=== PATIENT | male | born 1990 | race Caucasian/White ===

== ENCOUNTER 2016-07-19 10:30 | Outpatient (CLI) | payer OTHER | END 2016-07-19 10:31 | disposition home or self-care (01) | DX: M25.532 Pain in left wrist (principal) ==

== ENCOUNTER 2016-11-04 01:12 | Outpatient (CLI) | payer OTHER | END 2016-11-04 01:13 | disposition critical access hospital (66) | LOC: EMS 01:12 | PROVIDERS: ATTEND Surgery | DX: R51 Headache (principal) | CPT/HCPCS: A0425; A0429 ==

== ENCOUNTER 2016-11-04 01:37 | Emergency (ER) | payer OTHER ==
[2016-11-04 01:42] VITALS: BP 138/78
--- NOTE | 2016-11-04 02:23 | ED Physician Documentation ---
PD HPI HEADACHE - Stated complaint Stated Complaint: SOTO - Chief complaint Chief Complaint: Neuro - History obtained from History obtained from: Patient - History of Present Illness Timing - onset: Enter time (17:30) Timing - onset during: Rest Timing - details: Abrupt onset, Now resolved Worst headache ever?: Worst headache ever? Location: Left Quality: Throbbing Associated symptoms: Nausea. No: Fever, Stiff neck, Vomiting, Weakness, Numbness Improved by: Rest, Dark room Worsened by: Light Similar symptoms before: Has not had sx before Recently seen: Not recently seen - Additional information Additional information: c/o left retro-orbital headache with photophobia, nausea. Onset 5:30 PM today. Symptoms have completely resolved and he is asymptomatic at the time of my evaluation Review of Systems Constitutional: denies: Fever, Chills, Sweats Eyes: reports: Photophobia. denies: Loss of vision, Decreased vision Ears: denies: Ear pain Cardiac: reports: Reviewed and negative Respiratory: reports: Reviewed and negative GI: reports: Nausea. denies: Abdominal Pain, Vomiting Neurologic: reports: Headache. 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) - Past Surgical History Past Surgical History: No - Present Medications Home Medications: Ambulatory Orders Medication Instructions Recorded Confirmed No Known Home Medications [No 11/04/16 11/04/16 Known Home Medications] - Allergies Allergies/Adverse Reactions: Allergies Allergy/AdvReac Type Severity Reaction Status Date / Time No Known Drug Allergies Allergy Verified 11/04/16 01:42 - Social History Does the pt smoke?: Yes Smoking Status: Current every day smoker Does the pt drink ETOH?: Yes Does the pt have substance abuse?: Yes Substance Use and Type: Marijuana - Immunizations Immunizations are current?: Yes - POLST Patient has POLST: No PD ED PE NORMAL - Vitals Vital signs reviewed: Yes - General General: Alert and oriented X 3, No acute distress, Well developed/nourished - HEENT HEENT: PERRL, EOMI, Moist mucous membranes - Neck Neck: Supple, no meningeal sign - Cardiac Cardiac: RRR, No murmur - Respiratory Respiratory: No respiratory distress, Clear bilaterally - Neuro Neuro: Alert and oriented X 3, hand cloth examiner 2-12 intact, No motor deficit, No sensory deficit, Normal speech Results - Vitals Vitals: Vital Signs - 24 hr 11/04/16 01:38 Temperature 36.9 C Heart Rate 87 Respiratory 14 Rate Blood Pressure 138/78 H O2 Saturation 96 Oxygen O2 Source Room air PD MEDICAL DECISION MAKING - ED course Complexity details: considered differential, d/w patient ED course: Patient declined testing at this time, which is reasonable given that he is now asymptomatic. Departure - Departure Disposition: 01 Home, Self Care Clinical Impression: Headache Condition: Good Instructions: ED Cephalgia Unspecified Follow-Up: Julio Sunshine MD [Provider Admit Priv/Credential] - Discharge Date/Time: 11/04/16 02:57
== END 2016-11-04 02:57 | disposition home or self-care (01) ==
LOC: EDUNIT# → ED 01:37
DX: R51 Headache (principal); F17.200 Nicotine dependence, unspecified, uncomplicated
CPT/HCPCS: 99283

== ENCOUNTER 2017-08-15 11:39 | Outpatient (CLI) | payer OTHER ==
[2017-08-15 19:29] LABS: BASOPHILS # (AUTO) 0.1 10^3/uL (0.0-0.1); BASOPHILS % (AUTO) 0.6 %; EOSINOPHILS % (AUTO) 0.2 %; HGB - HEMOGLOBIN 14.2 g/dL (14.0-18.0); LYMPHOCYTES # (AUTO) 1.9 10^3/uL (1.5-3.5); LYMPHOCYTES % (AUTO) 21.3 %; MEAN CORPUSCULAR HEMOGLOBIN 31.7 pg (27.0-31.0); MEAN CORPUSCULAR HGB CONC 33.7 g/dL (32.0-36.0); MEAN CORPUSCULAR VOLUME 94.1 fL (80.0-94.0); MEAN PLATELET VOLUME 8.6 fL (7.4-11.4); MONOCYTES # (AUTO) 0.8 10^3/uL (0.0-1.0); MONOCYTES % (AUTO) 8.7 %; NEUTROPHILS # (AUTO) 6.1 10^3/uL (1.5-6.6); NEUTROPHILS % (AUTO) 69.2 %; PLT - PLATELET COUNT 224 10^3/uL (130-450); RED BLOOD COUNT 4.47 10^6/uL (4.70-6.10); WHITE BLOOD COUNT 8.8 x10^3/uL (4.8-10.8)
[2017-08-15 19:40] LABS: ALBUMIN 4.8 g/dL (3.2-5.5); ALBUMIN/GLOBULIN RATIO 1.7 (1.0-2.2); ALKALINE PHOSPHATASE 61 IU/L (42-121); ALT ALANINE AMINOTRANSFERASE 33 IU/L (10-60); AST ASPARTATE AMINOTRANSFERASE 35 IU/L (10-42); BUN - BLOOD UREA NITROGEN 15 mg/dL (6-20); CALCIUM 9.3 mg/dL (8.5-10.3); CARBON DIOXIDE - CO2 27 mmol/L (21-32); CHLORIDE 103 mmol/L (101-111); CHOL/HDL RATIO 3.2 (<5.0); CHOLESTEROL 207 mg/dL; CREATININE 0.8 mg/dL (0.6-1.2); GFR - MDRD 118 (>89); GLUCOSE 96 mg/dL (70-100); HDL CHOLESTEROL 64 mg/dL; LDL CHOLESTEROL,CALCULATED 129 mg/dL; SODIUM 138 mmol/L (135-145); TOTAL PROTEIN 7.6 g/dL (6.7-8.2); VLDL CHOLESTEROL 14 mg/dL
[2017-08-15 19:53] LABS: HB2 TOTAL 15.6 g/dL; HEMOGLOBIN A1C 0.49 g/dL
== END 2017-08-15 11:40 | disposition home or self-care (01) ==
LOC: LAB.WCP 11:39
PROVIDERS: ATTEND Family Medicine
DX: Z00.00 Encounter for general adult medical examination without abnormal findings (principal)
CPT/HCPCS: 36415; 80053; 80061; 83036; 83721; 84443; 85025

== ENCOUNTER 2017-09-06 09:09 | Outpatient (CLI) | payer OTHER ==
--- NOTE | 2017-09-06 16:42 | Ultrasound Report ---
EXAM: RENAL ULTRASOUND EXAM DATE: 09/06/2017 10:08 AM. CLINICAL HISTORY: HYPERTENSION. COMPARISON: None. TECHNIQUE: Real-time scanning was performed with static images obtained. FINDINGS: Right Kidney: 11.9 cm. Normal echotexture. No hydronephrosis. No contour deforming mass. No calculi. Left Kidney: 12.7 cm. Normal echotexture. No hydronephrosis. No contour deforming mass. No calculi. Bladder: Bilateral jets seen. The prevoid bladder volume was 265 cc. The postvoid bladder volume was 7 cc . IMPRESSION: 1. Unremarkable renal ultrasound. [facility] Referring Provider Line: [phone] SITE ID: [id number]
== END 2017-09-06 09:10 | disposition home or self-care (01) ==
LOC: DI 09:09
PROVIDERS: ATTEND Family Medicine
DX: I10 Essential (primary) hypertension (principal)
CPT/HCPCS: 76770

== ENCOUNTER 2017-09-07 12:34 | Outpatient (CLI) | payer OTHER | END 2017-09-07 12:35 | disposition home or self-care (01) | LOC: DI 12:34 | PROVIDERS: ATTEND Family Medicine | DX: I10 Essential (primary) hypertension (principal) | CPT/HCPCS: 93306 ==

== ENCOUNTER 2019-07-18 22:48 | Outpatient (CLI) | payer OTHER | END 2019-07-18 23:59 | disposition critical access hospital (66) | LOC: EMS 22:48 | PROVIDERS: ATTEND Surgery | DX: R06.9 Unspecified abnormalities of breathing (principal); R55 Syncope and collapse | CPT/HCPCS: A0425; A0427 ==

== ENCOUNTER 2019-07-18 23:16 | Emergency (ER) | payer OTHER ==
[2019-07-18] MEDS ORDERED: LORazepam 2 MG/ML VIAL IVP STA (23:32)
[2019-07-18 23:34] VITALS: BP 160/112
--- NOTE | 2019-07-18 23:53 | ED Physician Documentation ---
History of Present Illness - Stated complaint Stated Complaint: PANIC ATTACK, SYNCOPE - Chief complaint Chief Complaint: General - Additonal information Additional information: Patient is brought to the emergency department for panic attack and syncope after watching the news "all day". According to medics, the patient became upset after watching the news about coronavirus and had an altercation with his over the fact that she had not washed her hands before touching her child.Medics state that they Were called because the patient became extremely upset and began hyperventilating. He hyperventilated so much that he ended up losing consciousness. Medics state that they have witnessed the same phenomenon throughout their transport, noting that the patient will exhibit a respiratory rate of 40-50 while awake and then lapsed into unconsciousness for a short period of time, perhaps 10 seconds. The patient then awakens and begins to hyperventilate again. Medics state they given 4 mg of Versed in route to try to calm him down, but he is continued to exhibit the same behavior.The patient states that this is never happened to him before and that he does not want to be in the emergency department. He states he does not have any respiratory or cardiac history. He has not been sick with anything recently. He denies any abdominal pain, nausea, or vomiting. No recent fevers. No sore throat. No congestion. Patient states he feels anxious but was not previously short of breath. Patient has no history of DVT or PE. Review of Systems Ten Systems: 10 systems reviewed and negative Constitutional: reports: Reviewed and negative Eyes: reports: Reviewed and negative Ears: reports: Reviewed and negative Nose: reports: Reviewed and negative Throat: reports: Reviewed and negative Cardiac: reports: Reviewed and negative Respiratory: reports: Reviewed and negative GI: reports: Reviewed and negative : reports: Reviewed and negative Skin: reports: Reviewed and negative Musculoskeletal: reports: Reviewed and negative Neurologic: reports: Reviewed and negative Psychiatric: reports: Anxiety Endocrine: reports: Reviewed and negative Immunocompromised: reports: Reviewed and negative PD PAST MEDICAL HISTORY - Past Surgical History Past Surgical History: No - Present Medications Home Medications: Ambulatory Orders Medication Instructions Recorded Confirmed No Known Home Medications 11/04/16 11/04/16 - Allergies Allergies/Adverse Reactions: Allergies Allergy/AdvReac Type Severity Reaction Status Date / Time No Known Drug Allergies Allergy Verified 11/04/16 01:42 - Social History Does the pt smoke?: Yes Smoking Status: Current every day smoker Does the pt drink ETOH?: Yes Does the pt have substance abuse?: Yes - Immunizations Immunizations are current?: Yes - POLST Patient has POLST: No PD ED PE NORMAL - Vitals Vital signs reviewed: Yes - General General: Alert and oriented X 3, Well developed/nourished, Other (The patient is extremely anxious, but also hostile.) - HEENT HEENT: Atraumatic, PERRL, EOMI, Moist mucous membranes - Neck Neck: Supple, no meningeal sign - Cardiac Cardiac: RRR, No murmur - Respiratory Respiratory: Clear bilaterally, Other (Patient does not exhibit labored respirations, but does intermittently Appears to become extremely anxious, with respiratory rate around 50 breaths/min. He does lapsed into unconsciousness briefly, in which time he has a fairly long, 10-second lapse of respirations, then begins to Breathes at a normal rate before regaining consciousness 5 to 10 seconds later.) - Abdomen Abdomen: Soft, Non tender, Non distended - Derm Derm: Normal color, Warm and dry, No rash - Extremities Extremities: No deformity, Normal ROM s pain, No edema, No calf tenderness / cord - Neuro Neuro: intertype operator 2-12 intact, No motor deficit, No sensory deficit, Normal speech, Other (Patient initially does not appear entirely alert, but in somewhat of a daze, Staring straight ahead and slowly making eye contact when spoken to. He is able to give history when not in an episode of hyperventilation.) - Psych Psych: Other (Patient has frequent, intermittent episodes of extreme anxiety with extreme hyperventilation. He can be talked out of it to some degree, though once he begins to hyperventilate, he loses the ability to make eye contact and seemingly to comprehend instructions.The patient intermittently when not hyperventilating is hostile and angry, demanding a bottle of water and abrading staff who are not wearing gloves (though not touching the pt), despite reassurance that everybody, including provider, has disinfected hands, is appr opriately masked, and will wear gloves at the appropriate times.) Results - Vitals Vitals: Oxygen O2 Source Room air PD MEDICAL DECISION MAKING - ED course Complexity details: re-evaluated patient, considered differential, d/w patient ED course: The patient on arrival did appear to still be under the influence of Versed somewhat. He was very angry and extremely anxious, and I did try to explain to him that he needs to try to control his breathing. The patient was given water after the examination and did seem to calm down a bit after this. However, he became irate About being kept in the emergency department and demanded to leave. I did discuss with the patient that I am fine with discharging him once he has demonstrated that he is no longer hyperventilating and causing himself to have syncopal episodes. I have also discussed with him the hostility toward the staff will not accomplish anything, and that whether or not he wanted to come to the emergency department, he is here and it is our responsibility to sure that he is safe. I have discussed with him that we will have a much more productive interaction if he addresses staff with respect and a nonthreatening demeanor. The patient did calm at this point and was found to no longer have episodes of hyperventilation and syncope after some observation. He still wished to go home and I did feel he was stable for this. Mother arrived to drive him home. Departure - Departure Disposition: 01 Home, Self Care Clinical Impression: Panic attack as reaction to stress Condition: Stable Instructions: ED Panic Attack Discharge Date/Time: 07/19/19 00:00
== END 2019-07-19 | disposition home or self-care (01) ==
LOC: EDUNIT# → ED 23:16
DX: F43.0 Acute stress reaction (principal); F17.200 Nicotine dependence, unspecified, uncomplicated
CPT/HCPCS: 99283; 99284

== ENCOUNTER 2019-12-28 10:41 | Outpatient (CLI) | payer OTHER ==
--- NOTE | 2019-12-28 11:32 | XRAY Report ---
PROCEDURE: Ankle 3 View RT INDICATIONS: PAIN IN RIGHT ANKLE AND JOINGS OF RIGHT FOOT TECHNIQUE: 3 views of the ankle were acquired. COMPARISON: None FINDINGS: Bones: No fractures or dislocations. Ankle mortise is normally aligned. No suspicious bony lesions . Soft tissues: No tibiotalar joint effusion. Achilles tendon appears normal. IMPRESSION: No acute finding. Reviewed by: Donavon Peña MD on 12/28/2019 11:31 AM PDT Approved by: Donavon Peña MD on 12/28/2019 11:31 AM PDT Station ID: [id number]
--- NOTE | 2019-12-28 11:33 | XRAY Report ---
PROCEDURE: Foot 3 View RT INDICATIONS: PAIN IN RIGHT ANKLE AND JOINTS OF RIGHT FOOT TECHNIQUE: 3 views of the foot were acquired. COMPARISON: None FINDINGS: Bones: No fractures or dislocations. No suspicious bony lesions. Soft tissues: No tibiotalar joint effusion. Achilles tendon appears normal. IMPRESSION: No acute finding. Reviewed by: Doanvon Peña MD on 12/28/2019 11:31 AM PDT Approved by: Donavon Peña MD on 12/28/2019 11:31 AM PDT Station ID: [id number]
== END 2019-12-28 10:42 | disposition home or self-care (01) ==
LOC: DI.S 10:41
PROVIDERS: ATTEND Nurse Practitioner Family
DX: M25.571 Pain in right ankle and joints of right foot (principal)

== ENCOUNTER 2022-05-01 15:51 | Emergency (ER) | payer OTHER ==
[2022-05-01] MEDS ORDERED: SODIUM CHLORIDE 0.9% 1,000 ML IV STA (16:11)
[2022-05-01 16:17] LABS: BASOPHILS # (AUTO) 0.1 10^3/uL (0.0-0.1); BASOPHILS % (AUTO) 0.7 %; EOSINOPHILS % (AUTO) 0.3 %; HCT - HEMATOCRIT 40.4 % (42.0-52.0); HGB - HEMOGLOBIN 13.9 g/dL (14.0-18.0); LYMPHOCYTES # (AUTO) 3.1 10^3/uL (1.5-3.5); LYMPHOCYTES % (AUTO) 23.9 %; MEAN CORPUSCULAR HEMOGLOBIN 36.7 pg (27.0-31.0); MEAN CORPUSCULAR HGB CONC 34.4 g/dL (32.0-36.0); MEAN CORPUSCULAR VOLUME 106.6 fL (80.0-94.0); MEAN PLATELET VOLUME 10.3 fL (7.4-11.4); MONOCYTES % (AUTO) 7.6 %; NEUTROPHILS # (AUTO) 8.8 10^3/uL (1.5-6.6); NEUTROPHILS % (AUTO) 67.1 %; PLT - PLATELET COUNT 408 10^3/uL (130-450); RED BLOOD COUNT 3.79 10^6/uL (4.70-6.10); RED CELL DISTRIBUTION WIDTH 15.6 % (12.0-15.0); WHITE BLOOD COUNT 13.1 x10^3/uL (4.8-10.8)
[2022-05-01 16:22] VITALS: BP 128/87
[2022-05-01 16:34] LABS: ACETAMINOPHEN < 10 ug/mL (10-30); ALBUMIN 3.5 g/dL (3.2-5.5); ALBUMIN/GLOBULIN RATIO 0.9 (1.0-2.2); ALKALINE PHOSPHATASE 154 IU/L (42-121); ALT ALANINE AMINOTRANSFERASE 53 IU/L (10-60); AST ASPARTATE AMINOTRANSFERASE 93 IU/L (10-42); BILIRUBIN,TOTAL 1.2 mg/dL (0.2-1.0); BUN - BLOOD UREA NITROGEN < 5 mg/dL (6-20); CALCIUM 8.8 mg/dL (8.5-10.3); CARBON DIOXIDE - CO2 27 mmol/L (21-32); CHLORIDE 88 mmol/L (101-111); CREATININE 0.7 mg/dL (0.6-1.2); ETOH - ETHANOL 299.2 mg/dL; GFR - MDRD 132 (>89); GLUCOSE 138 mg/dL (70-100); SALICYLATE < 6.0 mg/dL; SODIUM 134 mmol/L (135-145); TOTAL PROTEIN 7.5 g/dL (6.7-8.2)
[2022-05-01 16:40] LABS: POTASSIUM 2.5 mmol/L (3.5-5.0)
--- NOTE | 2022-05-01 16:46 | ED Physician Documentation ---
History of Present Illness - Stated complaint Stated Complaint: ETOH - Chief complaint Chief Complaint: Trauma Hd/Nk - History obtained from History obtained from: Patient, EMS - Additonal information Additional information: Patient is a 31-year-old male presenting for evaluation after ground-level fall. He reports having a large amount of alcohol use today. Patient states that he has episodes of syncope. History is somewhat limited due to patient cooperation. EMS has reported several times where he has had LOC briefly for a few seconds. There has been no seizure activity.He did receive 4 mg of Zofran and 2 mg of Versed And currently is requiring physical restraints. On review of records he had a visit in 2019 with panic attack-like episodes where he would have episodes of hyperventilation followed by syncope and brief apnea. He was able to be talked out of these episodes And became calmer and more cooperative through that visit. Patient denies drug use. Review of Systems Constitutional: denies: Fever Cardiac: denies: Chest pain / pressure Respiratory: denies: Dyspnea GI: denies: Abdominal Pain Neurologic: denies: Headache PD PAST MEDICAL HISTORY - Past Surgical History Past Surgical History: No - Present Medications Home Medications: Ambulatory Orders Medication Instructions Recorded Confirmed Ondansetron Odt [Zofran] 4 mg TL Q6H PRN #10 tablet 05/01/22 Potassium Chloride [K-Dur] 40 meq PO ONCE 2 Days #4 tablet 05/01/22 - Allergies Allergies/Adverse Reactions: Allergies Allergy/AdvReac Type Severity Reaction Status Date / Time No Known Drug Allergies Allergy Verified 05/02/22 10:29 - Social History Does the pt smoke?: Yes Smoking Status: Current every day smoker Does the pt drink ETOH?: Yes Does the pt have substance abuse?: Yes - Immunizations Immunizations are current?: Yes - POLST Patient has POLST: No PD ED PE NORMAL - General General: Alert and oriented X 3, Well developed/nourished, Other (Initially uncooperative and fighting against restraints. Able to be redirected with a calm tone.; strong smell of etoh) - HEENT HEENT: Atraumatic, PERRL, EOMI, Moist mucous membranes, Pharynx benign - Neck Neck: Supple, no meningeal sign, No bony TTP - Cardiac Cardiac: No murmur, Other (Tachycardic, regular rhythm) - Respiratory Respiratory: No respiratory distress, Clear bilaterally - Abdomen Abdomen: Soft, Non tender - Derm Derm: Warm and dry - Extremities Extremities: No tenderness to palpate - Neuro Neuro: Alert and oriented X 3, No motor deficit, Normal speech Results - Vitals Vitals: Vital Signs - 24 hr 05/01/22 16:12 Temperature 36.3 C L Heart Rate 117 H Respiratory 18 Rate Blood Pressure 128/87 H O2 Saturation 100 Oxygen O2 Source Nasal cannula - EKG (time done) 1622 Rate: Rate (enter#) (106) Rhythm: Sinus tachycardia [place]: Normal Ischemia: No: ST elevation c/w ischemia - Labs Labs: Laboratory Tests 05/01/22 05/01/22 16:05 16:05 WBC 13.1 H RBC 3.79 L Hgb 13.9 L Hct 40.4 L MCV 106.6 H MCH 36.7 H MCHC 34.4 RDW 15.6 H Plt Count 408 MPV 10.3 Neut # (Auto) 8.8 H Lymph # (Auto) 3.1 [place] # (Auto) 1.0 Eos # (Auto) 0.0 Baso # (Auto) 0.1 Absolute Nucleated RBC 0.00 Nucleated RBC % 0.0 Sodium 134 L Potassium 2.5 L* Chloride 88 L Carbon Dioxide 27 Anion Gap 19.0 H BUN < 5 L Creatinine 0.7 Estimated GFR (MDRD) 132 Glucose 138 H Calcium 8.8 Total Bilirubin 1.2 H AST 93 H ALT 53 Alkaline Phosphatase 154 H Total Protein 7.5 Albumin 3.5 Globulin 4.0 Albumin/Globulin Ratio 0.9 L Salicylates < 6.0 Acetaminophen < 10 L Ethyl Alcohol 299.2 PD Medical Decision Making - ED course Complexity details: re-evaluated patient, d/w patient, d/w family (Mother at bedside) ED course: Pt presenting for evaluation of syncopal episode/head injury in setting of ETOH use. Pt is not at all cooperative upon arrival and required physical restraint by EMS/fire and versed en route. There were reports of a head injury so pt was placed into a c collar. We were able to de escalate patient without chemical sedation and he became less agitated/aggressive. Locked restraints were removed and patient was able to follow directions for CT head and C spine. No signs of intracranial bleed or c spine injury. Patient was able to follow directions and be cooperative to clear his c spine of concerns of ligamentous injury. Labs reviewed and significant for hypokalemia of 2.5 and elevated ETOH level. IV K ordered which patient did not tolerate. PO ordered which patient vomited. Upon arrival of pt's mother to ED, patient became very eager for discharge stating we could not hold him against his will if he had a sober ride. He stated multiple times that he wanted to leave and would not answer further questions regarding events of the day. He asked to smoke a cigarette and we explained why that is not allowed. I offered a nicotine patch. I explained my concerns to the patient and his mother regarding not monitoring him further given his syncope and his low potassium and would like to help him with his nausea so that he could tolerate another try at PO potassium. He initially agreed to this and was able to drink some water but while RN was getting meds, patient stood up and started removing leads and wanting his IV out. He speaks clearly and without slurring that he wants to leave and just does not like being in the hospital. I offered him medication to help with anxiety which he declined. He is able to ambulate steadily and states he is agreeable to receiving Rx for nausea medication and potassium. His mother states she is comfortable taking him home and they live in the same residence. Patient is not able to be convinced to stay in the ED any longer, he is speaking clearly and ambulating steadily and appears appropriate to make his own decisions and does not meet criteria for an involuntary hold. 1752 - Patient is not tolerating IV potassium so we will change to p.o. He may need prescription for more potassium. Departure - Departure Disposition: 01 Home, Self Care Clinical Impression: Alcohol intoxication, Hypokalemia, Syncope Condition: Stable Instructions: ED Alcohol Intoxication, ED Potassium Deficiency Prescriptions: Potassium Chloride [K-Dur] 40 meq PO ONCE 2 Days #4 tablet Ondansetron Odt [Zofran] 4 mg TL Q6H PRN #10 tablet PRN Reason: Nausea / Vomiting Comments: Your potassium level is low. You have opted not to receive potassium replacement here. I have sent a prescription to the [facility] in [place] for potassium pills as well as nausea medication. Please abstain from further alcohol use. Prescriptions were sent to [facility] in [place]. If you feel you need assistance with alcohol or substance abuse, [place]. [facility] [address] [place] [address] Main The [facility] offers a monitored and safe setting for individuals withdrawing from alcohol and drugs, and counseling for individuals experiencing a mental health crisis. All services are provided in a 10-bed facility where intensive medical monitoring is required along with stabilization services. The goal of these services is to assess a clients mental health and substance use disorder related needs, and assist them in accessing the services they need to recover. Discharge Date/Time: 05/01/22 19:14
--- NOTE | 2022-05-01 16:49 | ED Physician Documentation ---
Restraint [id number] - Immediate Situation Face to Face Evaluation Date: 05/01/22 Face to Face Evaluation Time: 16:00 Restraint Classification: Violent, physical Restraint Type: Locked extremity - Patient's Reaction & Behaviors Safety: Physically unsafe, Non-compliant Verbal: Screaming/Yelling Harm: Potential harm to self, Potential harm to others Physical: Aggressive behavior, Fighting restraints - Behavioral Condition Attitude: Indifferent Behavior: Agitated Orientation: Person Mood: Angry - Evaluation Review of Systems: See my note Pertinent History/Illicit Drugs/Medications/Results: Alcohol use - Plan Need to Continue or Terminate Violent or Chemical Restraint: We will remove restraints as soon as Possible when patient demonstrates that he is no longer a potential harm to himself or others
[2022-05-01] MEDS ORDERED: POTASSIUM CHLOR 10 MEQ/100 ML 10 MEQ/100 ML BAG IV SCH (17:00)
--- NOTE | 2022-05-01 17:24 | CT Report ---
PROCEDURE: CERVICAL SPINE WO INDICATIONS: fall/etoh TECHNIQUE: Noncontrast 3 mm thick sections acquired from the skull base to the T4 level. Sagittal and coronal r eformats were then constructed. For radiation dose reduction, the following was used: automated exp osure control, adjustment of mA and/or kV according to patient size. COMPARISON: None. FINDINGS: Image quality: Excellent. Bones: No fractures or dislocations. Visualized superior ribs are intact. Soft tissues: Prevertebral soft tissues are normal in thickness. No paravertebral hematomas. No ap ical pneumothoraces. IMPRESSION: No visualized fracture. Reviewed by: Luda Raymond MD on 05/01/2022 5:23 PM PST Approved by: Luda Raymond MD on 05/01/2022 5:23 PM PST Station ID: [id number]
--- NOTE | 2022-05-01 17:24 | CT Report ---
PROCEDURE: HEAD WO INDICATIONS: fall TECHNIQUE: Noncontrast 4.5 mm thick angled axial sections acquired from the foramen magnum to the vertex. For r adiation dose reduction, the following was used: automated exposure control, adjustment of mA and/or kV according to patient size. COMPARISON: None. FINDINGS: Image quality: Excellent. CSF spaces: Basal cisterns are patent. No extra-axial fluid collections. Ventricles are normal in size and shape. Brain: No midline shift. No intracranial masses or hemorrhage. [place]-white matter interface is norm al. Skull and face: Calvarium and visualized facial bones are intact, without suspicious lesions. Sinuses: Visualized sinuses and mastoids are clear. IMPRESSION: 1. No acute intracranial process. Reviewed by: Luda Raymond MD on 05/01/2022 5:22 PM [facility] Approved by: Luda Raymond MD on 05/01/2022 5:22 PM [facility] Station ID: [id number]
[2022-05-01] MEDS ORDERED: POTASSIUM CHLORIDE 20 MEQ TABLET PO STA (17:51)
[2022-05-01] MEDS ORDERED: ONDANSETRON 4 MG/2 ML VIAL IVP STA (18:01)
--- NOTE | 2022-05-01 18:04 | XRAY Report ---
PROCEDURE: Chest 1 View X-Ray INDICATIONS: syncope TECHNIQUE: One view of the chest was acquired. COMPARISON: None. FINDINGS: Surgical changes and devices: None. Lungs and pleura: No pleural effusions or pneumothorax. Lungs are clear. Mediastinum: Mediastinal contours appear normal. Heart size is normal. Bones and chest wall: No suspicious bony lesions. Overlying soft tissues appear unremarkable. IMPRESSION: No acute pulmonary process. Reviewed by: Luda Raymond MD on 05/01/2022 5:59 PM [facility] [[email or web address]] Approved by: Luda Raymond MD on 05/01/2022 5:59 PM [facility] [[email or web address]] Station ID: [id number]
[2022-05-01] MEDS ORDERED: METOCLOPRAMIDE 10 MG/2 ML VIAL IVP STA (18:37)
[2022-05-01] MEDS ORDERED: POTASSIUM CHLORIDE 20 MEQ/15 ML UDC PO STA (19:00)
== END 2022-05-01 19:14 | disposition home or self-care (01) ==
LOC: EDUNIT# → ED 15:51
DX: F10.129 Alcohol abuse with intoxication, unspecified (principal); E87.6 Hypokalemia; R55 Syncope and collapse; S09.90XA Unspecified injury of head, initial encounter; Z78.1 Physical restraint status; Z53.29 Procedure and treatment not carried out because of patient's decision for other reasons; F17.200 Nicotine dependence, unspecified, uncomplicated; X58.XXXA Exposure to other specified factors, initial encounter; F91.8 Other conduct disorders; F41.9 Anxiety disorder, unspecified
CPT/HCPCS: 36415; 70450; 71045; 72125; 80053; 80307; 80320; 80329; 85025; 93005; 96365; 96375; 99284; A9270; J2765

== ENCOUNTER 2022-05-02 10:18 | Emergency (ER) | payer OTHER ==
--- NOTE | 2022-05-02 10:47 | ED Physician Documentation ---
PD HPI CHEST PAIN - Stated complaint Stated Complaint: HANDS NUMB/CRAMPING/VOMITING - Chief complaint Chief Complaint: Cardiac - History obtained from History obtained from: Patient - History of Present Illness Timing - onset: Yesterday PD PAST MEDICAL HISTORY - Past Surgical History Past Surgical History: No - Present Medications Home Medications: Ambulatory Orders Medication Instructions Recorded Confirmed Ondansetron Odt [Zofran] 4 mg TL Q6H PRN #10 tablet 05/01/22 Potassium Chloride [K-Dur] 40 meq PO ONCE 2 Days #4 tablet 05/01/22 Famotidine [Pepcid] 20 mg PO DAILY #20 tablet 05/02/22 LORazepam [Ativan] 1 mg PO Q6H PRN #20 tablet 05/02/22 Magnesium Oxide 400 mg PO DAILY #20 tablet 05/02/22 Ondansetron Odt [Zofran] 4 mg TL Q6H PRN #10 tablet 05/02/22 Potassium Chloride 10 meq PO DAILY #20 tab 05/02/22 Promethazine [Phenergan] 25 mg PO Q6H PRN #15 tab 05/02/22 - Allergies Allergies/Adverse Reactions: Allergies Allergy/AdvReac Type Severity Reaction Status Date / Time No Known Drug Allergies Allergy Verified 05/02/22 10:29 - Social History Does the pt smoke?: Yes Smoking Status: Current every day smoker Does the pt drink ETOH?: Yes Does the pt have substance abuse?: Yes - Immunizations Immunizations are current?: Yes - POLST Patient has POLST: No Results - Vitals Vitals: Vital Signs - 24 hr 05/02/22 05/02/22 05/02/22 10:21 10:58 11:28 Temperature 36.5 C Heart Rate 146 H 128 H 126 H Respiratory 40 H 26 H 17 Rate Blood Pressure 137/75 H 150/126 H 172/89 H O2 Saturation 99 100 99 05/02/22 05/02/22 05/02/22 11:42 12:14 13:00 Temperature Heart Rate 123 H 130 H 131 H Respiratory 14 16 18 Rate Blood Pressure 165/97 H 158/85 H 149/88 H O2 Saturation 98 96 95 05/02/22 05/02/22 05/02/22 13:57 14:30 14:49 Temperature Heart Rate 127 H 119 H 116 H Respiratory 23 20 16 Rate Blood Pressure 133/79 H 138/84 H 146/85 H O2 Saturation 25 L 95 95 05/02/22 05/02/22 15:30 15:53 Temperature Heart Rate 121 H 128 H Respiratory 18 23 Rate Blood Pressure 139/81 H 139/87 H O2 Saturation 94 97 Oxygen O2 Source Room air - Labs Labs: Laboratory Tests 05/02/22 05/02/22 05/02/22 10:46 11:30 11:30 WBC 18.7 H RBC 3.79 L Hgb 13.7 L Hct 39.3 L MCV 103.7 H MCH 36.1 H MCHC 34.9 RDW 15.7 H Plt Count 381 MPV 10.7 Neut # (Auto) 14.9 H Lymph # (Auto) 2.0 [place] # (Auto) 1.4 H Eos # (Auto) 0.1 Baso # (Auto) 0.1 Absolute Nucleated RBC 0.00 Nucleated RBC % 0.0 PT INR APTT Sodium 133 L Potassium 2.0 L* Chloride 87 L Carbon Dioxide 21 Anion Gap 25.0 H BUN 9 Creatinine 1.0 Estimated GFR (MDRD) 88 L Glucose 177 H Calcium 8.2 L Magnesium 1.0 L* Total Bilirubin 2.4 H AST 88 H ALT 54 Alkaline Phosphatase 149 H Total Protein 7.3 Albumin 3.8 Globulin 3.5 Albumin/Globulin Ratio 1.1 Lipase 69 H Ethyl Alcohol < 5.0 05/02/22 05/02/22 13:25 15:12 WBC RBC Hgb Hct MCV MCH MCHC RDW Plt Count MPV Neut # (Auto) Lymph # (Auto) [place] # (Auto) Eos # (Auto) Baso # (Auto) Absolute Nucleated RBC Nucleated RBC % PT 14.1 H INR 1.3 H APTT 30.2 Sodium Potassium 2.6 L Chloride Carbon Dioxide Anion Gap BUN Creatinine Estimated GFR (MDRD) Glucose Calcium Magnesium 1.4 L Total Bilirubin AST ALT Alkaline Phosphatase Total Protein Albumin Globulin Albumin/Globulin Ratio Lipase Ethyl Alcohol PD Medical Decision Making - ED course Complexity details: considered differential (having carpal spasms with dyspnea and fast breathing, c/w hyperventilation. But had had low k yesterday, so likely a factor there. He has history of alcohol regularly and stopped 2-3 days ago. Some of his vomiting/anxious/abd cramps likely withdrawal. Can treat with IV fluids and meds for withdrawal), d/w patient Reviewed Lab Results: having higher bili/LFTs than recent ER visit. Can get cT abd to eval. (had had CT head and neck from fall and not eval of abd per se). Here with mother, who gives some corrections on the history (nudging patient to tell me about the degree of alcohol use and problems with it). ED course: He is given IV fluids and Potassium and Mag IV route and antiemetics and medications for pain/withsdrawal (iv dilaudid and ativan). Dit not have over- sedation but was appropriately calmed and not hyperventilating and spasms imrpoved. He did have mass in gallbladder and U/S recommended. U/S done and showed cyst without acute cholecystitis. Bile duct is normal size. Presume the elevated LFTs are related to alcohol use and vomiting, though could not exclude acute viral illness with hepatic inflammation. Patient is feeling better and prefers to discharge home, though he fits for OBS criteria at least. Offered OBS, but prefers home. I checked K/Mag after iV dosing to ensure reasonably increased even though not expecting it to be normal yet. Labs were improved with Mag up to 1.4 from 1.0, and K up to 2.6 from 2.0. He is discharged home with his mother. He states he will abstain from alcohol still and wants to be quitting. we discussed rx for gastritis, K/Mag replacement, and also meds for withdrawal and nausea. this includes Ativan. Departure - Departure Disposition: 01 Home, Self Care Clinical Impression: Elevated liver enzymes, Hypokalemia, Hypomagnesemia, Intractable vomiting, Alcohol withdrawal, Abdominal pain Condition: Stable Record reviewed to determine appropriate education?: Yes Follow-Up: Beto Olvera MD [Primary Care Provider] - Prescriptions: LORazepam [Ativan] 1 mg PO Q6H PRN #20 tablet PRN Reason: Alcohol Withdrawal Magnesium Oxide 400 mg PO DAILY #20 tablet Famotidine [Pepcid] 20 mg PO DAILY #20 tablet Promethazine [Phenergan] 25 mg PO Q6H PRN #15 tab PRN Reason: Nausea / Vomiting Potassium Chloride 10 meq PO DAILY #20 tab Ondansetron Odt [Zofran] 4 mg TL Q6H PRN #10 tablet PRN Reason: Nausea / Vomiting Comments: Its unclear whether your abdominal pain and vomiting relate to irritation of the stomach (gastritis) from the alcohol use or even potential viral "stomach flu". Some of your symptoms now do seem likely related to alcohol withdrawal with the fast heart rate and general abdominal pain, vomiting and some shakiness. The spasming of the hands and numbness of the hands and face are combination of your electrolyte abnormality with low potassium and magnesium as well as initially some hyperventilation (breathing too fast). This seems to be improved at this point. We did give you IV doses of potassium and magnesium and that showed some improvement in your electrolytes. However they are not normal yet and you will need to continue with supplements of the potassium and magnesium for the next couple of weeks. These are likely low related to the repetitive vomiting and so stopping the vomiting will help your hydration and electrolytes as well. For this you can take ondansetron orally dissolving tablet or promethazine tablet every 6 hours if needed for nausea and vomiting. Certainly your stomach will be irritated from all this and so famotidine acid reducing medicine daily for the next few weeks as well. Use Tylenol every 6-8 hours if needed for pains. You could use hydrocodone every 6 hours if needed for worse pain. Your CT scan did not show any obvious acute abnormality. There was what appeared to be a small cystic or stone structure in the gallbladder. However the ultrasound showed it to be just a small benign cyst without any signs of acute inflammation or infection. I sent prescriptions for these medications to the [facility] in [place]. I also prescribed lorazepam/Ativan to use every 6 hours if needed for alcohol withdrawal symptoms. Follow-up with your primary care in the next several days, call for an appointment. Return to the ER if worsening symptoms again.Try to eat well with small fluids and bland food and avoid alcohol of course. Discharge Date/Time: 05/02/22 16:05
[2022-05-02] MEDS ORDERED: KETOROLAC 15 MG/ML VIAL IVP STA (10:50)
[2022-05-02] MEDS ORDERED: DROPERIDOL 5 MG/2 ML VIAL IVP STA (10:50)
[2022-05-02] MEDS ORDERED: HYDROmorphone 0.5 MG/0.5 ML SYRINGE IVP STA (10:50)
[2022-05-02] MEDS ORDERED: SODIUM CHLORIDE 0.9% 1,000 ML IV STA (10:50)
[2022-05-02 10:56] LABS: BASOPHILS # (AUTO) 0.1 10^3/uL (0.0-0.1); BASOPHILS % (AUTO) 0.3 %; EOSINOPHILS # (AUTO) 0.1 10^3/uL (0.0-0.7); EOSINOPHILS % (AUTO) 0.6 %; HCT - HEMATOCRIT 39.3 % (42.0-52.0); HGB - HEMOGLOBIN 13.7 g/dL (14.0-18.0); LYMPHOCYTES % (AUTO) 10.9 %; MEAN CORPUSCULAR HEMOGLOBIN 36.1 pg (27.0-31.0); MEAN CORPUSCULAR HGB CONC 34.9 g/dL (32.0-36.0); MEAN CORPUSCULAR VOLUME 103.7 fL (80.0-94.0); MEAN PLATELET VOLUME 10.7 fL (7.4-11.4); MONOCYTES # (AUTO) 1.4 10^3/uL (0.0-1.0); MONOCYTES % (AUTO) 7.4 %; NEUTROPHILS # (AUTO) 14.9 10^3/uL (1.5-6.6); NEUTROPHILS % (AUTO) 79.8 %; PLT - PLATELET COUNT 381 10^3/uL (130-450); RED BLOOD COUNT 3.79 10^6/uL (4.70-6.10); RED CELL DISTRIBUTION WIDTH 15.7 % (12.0-15.0); WHITE BLOOD COUNT 18.7 x10^3/uL (4.8-10.8)
[2022-05-02 12:04] LABS: ALBUMIN 3.8 g/dL (3.2-5.5); ALBUMIN/GLOBULIN RATIO 1.1 (1.0-2.2); ALKALINE PHOSPHATASE 149 IU/L (42-121); BILIRUBIN,TOTAL 2.4 mg/dL (0.2-1.0); BUN - BLOOD UREA NITROGEN 9 mg/dL (6-20); CALCIUM 8.2 mg/dL (8.5-10.3); CARBON DIOXIDE - CO2 21 mmol/L (21-32); CHLORIDE 87 mmol/L (101-111); ETOH - ETHANOL < 5.0 mg/dL; GFR - MDRD 88 (>89); GLUCOSE 177 mg/dL (70-100); LIPASE 69 U/L (22-51); SODIUM 133 mmol/L (135-145); TOTAL PROTEIN 7.3 g/dL (6.7-8.2)
[2022-05-02] MEDS ORDERED: POTASSIUM CHLOR 10 MEQ/100 ML 10 MEQ/100 ML BAG IV ONE ×2 (12:16→13:54)
[2022-05-02] MEDS ORDERED: LACTATED RINGERS 1,000 ML IV STA (12:16)
[2022-05-02] MEDS ORDERED: LORazepam 2 MG/ML VIAL IVP STA (12:17)
[2022-05-02 12:25] LABS: ALT ALANINE AMINOTRANSFERASE 54 IU/L (10-60); AST ASPARTATE AMINOTRANSFERASE 88 IU/L (10-42)
[2022-05-02] MEDS ORDERED: iohexoL-300 100 ML VIAL ONE (12:50)
[2022-05-02] MEDS ORDERED: MAGNESIUM SULFATE 2 GRAM 2 GM/50 ML BAG IV ONE (13:16)
--- NOTE | 2022-05-02 13:28 | CT Report ---
PROCEDURE: ABDOMEN/PELVIS W INDICATIONS: abd pain and vomiting CONTRAST: 100ml Omnipaque 300 TECHNIQUE: After the administration of intravenous contrast, 5 mm thick sections acquired from the diaphragms to the symphysis. 5 mm thick coronal and sagittal reformats were acquired. For radiation dose reducti on, the following was used: automated exposure control, adjustment of mA and/or kV according to pino ent size. COMPARISON: None. FINDINGS: Image quality: Excellent. ABDOMEN: Lung bases: Lung bases are clear. Heart size is normal. Solid organs: Liver is enlarged, and demonstrates diffusely decreased density, without focal mass. G allbladder demonstrates a 10 mm diameter region of nondependent high density at its fundus. Biliary system is non dilated. Pancreas enhances normally. No adrenal nodules. Kidneys demonstrate normal size and enhancement, without hydronephrosis. Peritoneum and bowel: Bowel loops demonstrate normal wall thickness and caliber. Normal appendix. N o free fluid or air. Nodes and vessels: No retroperitoneal or mesenteric adenopathy by size criteria. Aorta and inferior vena cava are normal in size. Miscellaneous: No ventral hernias. PELVIS: Genitourinary: Bladder wall thickness is normal. Miscellaneous: No inguinal hernias or adenopathy. Bones: No suspicious bony lesions. No vertebral body compression fractures. IMPRESSION: 1. No acute process. 2. Hepatic steatosis. 3. High density focus within the gallbladder fundus, possibly indicating a polyp or adherent calculus . No evidence of associated cholecystitis. Further assessment with nonemergent outpatient follow-up u ltrasound examination is recommended. 4. Normal appendix. Reviewed by: Soniya Corey MD on 05/02/2022 1:27 PM PST Approved by: Soniya Corey MD on 05/02/2022 1:27 PM PST Station ID: [id number]
[2022-05-02 14:14] LABS: INR 1.3 (0.8-1.2); PT - PROTHROMBIN TIME 14.1 secs (9.9-12.6)
[2022-05-02 14:21] LABS: PARTIAL THROMBOPLASTIN TIME 30.2 secs (24.9-33.3)
[2022-05-02 15:25] LABS: MAGNESIUM 1.4 mg/dL (1.7-2.8); POTASSIUM 2.6 mmol/L (3.5-5.0)
--- NOTE | 2022-05-02 15:50 | Ultrasound Report ---
PROCEDURE: Abdomen Limited INDICATIONS: elevated LFTs. CT showing GB mass. TECHNIQUE: Real-time focused scanning was performed of the abdomen, with image documentation. COMPARISON: CT of abdomen and pelvis from the same day. FINDINGS: There is hepatomegaly. Coarsely increased liver parenchymal echotexture is seen. No discrete hepatic lesion. Gallbladder is distended. No gallstone is seen. No gallbladder wall thickening or pericholecystic flu id. Likely phrygian cap versus gallbladder wall cyst measures 1.9 x 0.5 x 1 cm in size is seen near f undus of gallbladder. No sonographic Mcduffie's sign. There is no intrahepatic biliary ductal dilatation., Bowel that measures up to 5.5 mm in diameter and is within normal limits. Pancreas is not well seen due to overlying bowel gas. Visualized portion of right kidney show no hydronephrosis. IMPRESSION: 1. 1.9 x 0.5 x 1 cm hypoechoic structure within fundus of gallbladder. Given CT finding of 1 cm hyper density in this area finding is suggestive of possible hyperdense cyst. Sonographic follow-up is zoe mmended. No internal vascularity is noted within this structure. No sonographic evidence of acute cho lecystitis. 2. Hepatomegaly and hepatic steatosis, no discrete hepatic lesion. 3. No biliary ductal dilatation. Reviewed by: Noel Viveros MD on 05/02/2022 3:48 PM PST Approved by: Noel Viveros MD on 05/02/2022 3:48 PM PST Station ID: [id number]
[2022-05-02 15:53] VITALS: BP 139/87
[2022-05-02] MEDS ORDERED: iohexoL-300 100 ML VIAL IVP ONE (16:20)
== END 2022-05-02 16:05 | disposition home or self-care (01) ==
LOC: ED 10:18
DX: F10.239 Alcohol dependence with withdrawal, unspecified (principal); R74.8 Abnormal levels of other serum enzymes; E87.6 Hypokalemia; E83.42 Hypomagnesemia; R10.9 Unspecified abdominal pain; R11.10 Vomiting, unspecified; F17.200 Nicotine dependence, unspecified, uncomplicated
CPT/HCPCS: 36415; 74177; 76705; 80053; 80320; 83690; 83735; 84132; 85025; 85610; 85730; 93005; 96361; 96365; 96366; 96367; 96375; 99284; 99285; J1170; J2060; J7120; Q9967

== ENCOUNTER 2022-05-12 16:55 | Outpatient (CLI) | payer OTHER | END 2022-05-12 16:56 | disposition critical access hospital (66) | LOC: EMS 16:55 | DX: R11.2 Nausea with vomiting, unspecified (principal); R12 Heartburn; Z72.89 Other problems related to lifestyle; F41.9 Anxiety disorder, unspecified; R55 Syncope and collapse | CPT/HCPCS: A0425; A0427 ==

== ENCOUNTER 2022-05-12 17:18 | Emergency (ER) | payer OTHER ==
[2022-05-12] MEDS ORDERED: ONDANSETRON 4 MG/2 ML VIAL IVP STA (17:25)
[2022-05-12] MEDS ORDERED: PROMETHAZINE INJ 12.5 MG in SODIUM CHLORIDE 0.9% 50 ML IV STA (17:25)
[2022-05-12] MEDS ORDERED: SODIUM CHLORIDE 0.9% 1,000 ML IV STA (17:26)
[2022-05-12 17:35] LABS: BASOPHILS % (AUTO) 0.4 %; EOSINOPHILS # (AUTO) 0.1 10^3/uL (0.0-0.7); EOSINOPHILS % (AUTO) 0.8 %; HCT - HEMATOCRIT 38.5 % (42.0-52.0); HGB - HEMOGLOBIN 13.6 g/dL (14.0-18.0); LYMPHOCYTES % (AUTO) 9.2 %; MEAN CORPUSCULAR HEMOGLOBIN 36.9 pg (27.0-31.0); MEAN CORPUSCULAR HGB CONC 35.3 g/dL (32.0-36.0); MEAN CORPUSCULAR VOLUME 104.3 fL (80.0-94.0); MEAN PLATELET VOLUME 9.4 fL (7.4-11.4); MONOCYTES # (AUTO) 0.7 10^3/uL (0.0-1.0); MONOCYTES % (AUTO) 6.2 %; PLT - PLATELET COUNT 241 10^3/uL (130-450); RED BLOOD COUNT 3.69 10^6/uL (4.70-6.10); RED CELL DISTRIBUTION WIDTH 17.4 % (12.0-15.0); WHITE BLOOD COUNT 10.9 x10^3/uL (4.8-10.8)
--- NOTE | 2022-05-12 17:37 | ED Physician Documentation ---
PD HPI ABD PAIN - Stated complaint Stated Complaint: ABD PX - Chief complaint Chief Complaint: Abd Pain - History obtained from History obtained from: Patient - Additional information Additional information: This is a 31-year-old male with a past medical history of alcoholism, Prior intractable nausea and vomiting secondary to alcohol use,. Elevated liver enzymes who presents with abdominal pain, nausea and vomiting. The patient states that he Drink heavily the last couple of days, mostly vodka. He woke up at 8 AM and served his son breakfast and then went back to bed. He woke up at 11 on the floor unaware of how he got there. He got himself back to bed and then woke up again this afternoon with persistent Nausea and vomiting. He vomited multiple times and continued to dry heave until his stomach was empty. He states that he did drink heavily for the last 2 days straight, last drinking late last night, drinking vodka. Unknown amount. He states he does drink every day and has done so for many years. He has had withdrawals in the past As well as other complications from his alcoholism.. He has generalized abdominal pain, mostly across the top of the abdomen though no focal abdominal pain. No diarrhea or constipation, no dysuria urgency or frequency, no fever or chills. He heads not had anything to eat for the last 3 or 4 days as he is been drinking alcohol only. He denies any chest pain or difficulty breathing. No headache, no neck pain, no extremity pain. He has not taken any of his regular medications including omeprazole. He states that his heart rate is always always elevated when he is in the hospital. He states that he does not want to stay in the hospital today Review of Systems Constitutional: reports: Reviewed and negative Eyes: reports: Reviewed and negative Ears: reports: Reviewed and negative Nose: reports: Reviewed and negative Throat: reports: Reviewed and negative Cardiac: reports: Reviewed and negative Respiratory: reports: Reviewed and negative GI: reports: Abdominal Pain, Nausea, Vomiting. denies: Abdominal Swelling, Constipation, Diarrhea, Hematemesis, Bloody / black stool : reports: Reviewed and negative Skin: reports: Reviewed and negative Musculoskeletal: reports: Reviewed and negative Neurologic: reports: Reviewed and negative Psychiatric: reports: Reviewed and negative Endocrine: reports: Reviewed and negative Immunocompromised: reports: Reviewed and negative PD PAST MEDICAL HISTORY - Past Medical History Past Medical History: Yes Cardiovascular: Other (Tachycardia) Other Past Medical History: alcoholism - Past Surgical History Past Surgical History: No - Present Medications Home Medications: Ambulatory Orders Medication Instructions Recorded Confirmed Famotidine [Pepcid] 20 mg PO DAILY #20 tablet 05/02/22 05/12/22 LORazepam [Ativan] 1 mg PO Q6H PRN #20 tablet 05/02/22 05/12/22 Magnesium Oxide 400 mg PO DAILY #20 tablet 05/02/22 05/12/22 Ondansetron Odt [Zofran] 4 mg TL Q6H PRN #10 tablet 05/02/22 05/12/22 Potassium Chloride 10 meq PO DAILY #20 tab 05/02/22 05/12/22 Promethazine [Phenergan] 25 mg PO Q6H PRN #15 tab 05/02/22 05/12/22 - Allergies Allergies/Adverse Reactions: Allergies Allergy/AdvReac Type Severity Reaction Status Date / Time No Known Drug Allergies Allergy Verified 05/12/22 17:27 - Social History Does the pt smoke?: Yes Smoking Status: Current every day smoker Does the pt drink ETOH?: Yes Does the pt have substance abuse?: Yes - Immunizations Immunizations are current?: Yes - POLST Patient has POLST: No PD ED PE NORMAL - Vitals Vital signs reviewed: Yes - General General: Alert and oriented X 3, Well developed/nourished, Other (is dry heaving) - HEENT HEENT: Atraumatic, Moist mucous membranes, Pharynx benign - Neck Neck: Supple, no meningeal sign, No JVD - Cardiac Cardiac: No murmur, No gallop, No rub, Strong equal pulses, Other (tachycardic) - Respiratory Respiratory: No respiratory distress, Clear bilaterally - Abdomen Abdomen: Normal bowel sounds, Soft, Non distended, Other (mild RUQ ttp, no mid epigastric tpp. no massess. ) - Derm Derm: Normal color, Warm and dry, No rash - Neuro Neuro: Alert and oriented X 3, No motor deficit, No sensory deficit, Normal speech Eye Opening: Spontaneous Motor: Obeys Commands Verbal: Oriented GCS Score: 15 - Psych Psych: Normal mood, Normal affect Results - Vitals Vitals: Vital Signs - 24 hr 05/12/22 05/12/22 05/12/22 17:28 18:11 20:00 Temperature 36.5 C 36.8 C Heart Rate 150 H 135 H 130 H Respiratory 26 H 16 17 Rate Blood Pressure 145/100 H 126/86 H 165/98 H O2 Saturation 99 92 95 Oxygen O2 Source Room air - EKG (time done) No standard instances Rate: Rate (enter#) (142) Rhythm: Sinus tachycardia [place]: Normal Intervals: Normal MT QRS: Normal Ischemia: Normal ST segments Compare to prior EKG: Unchanged from prior EKG Computer interpretation: Agree with computer - Labs Labs: Laboratory Tests 05/12/22 05/12/22 05/12/22 17:30 17:30 17:30 WBC 10.9 H RBC 3.69 L Hgb 13.6 L Hct 38.5 L MCV 104.3 H MCH 36.9 H MCHC 35.3 RDW 17.4 H Plt Count 241 MPV 9.4 Neut # (Auto) 9.0 H Lymph # (Auto) 1.0 L [place] # (Auto) 0.7 Eos # (Auto) 0.1 Baso # (Auto) 0.0 Absolute Nucleated RBC 0.00 Nucleated RBC % 0.0 Sodium 138 Potassium 3.0 L Chloride 96 L Carbon Dioxide 15 L Anion Gap 27.0 H BUN 5 L Creatinine 0.7 Estimated GFR (MDRD) 132 Glucose 141 H Calcium 8.6 Magnesium Total Bilirubin 1.7 H AST 158 H ALT 59 Alkaline Phosphatase 199 H Troponin I High Sens Total Protein 7.6 Albumin 3.5 Globulin 4.1 Albumin/Globulin Ratio 0.9 L Lipase 51 50 Urine Color Urine Clarity Urine pH Ur Specific [place] Urine Protein Urine Glucose (UA) Urine Ketones Urine Occult Blood Urine Nitrite Urine Bilirubin Urine Urobilinogen Ur Leukocyte Esterase Ur Microscopic Review Urine Culture Comments Urine Opiates Screen Ur Oxycodone Screen Urine Methadone Screen Ur Propoxyphene Screen Ur Barbiturates Screen Ur Tricyclics Screen Ur Phencyclidine Scrn Ur Amphetamine Screen U Methamphetamines Scrn U Benzodiazepines Scrn Urine Cocaine Screen U Cannabinoids Screen Ethyl Alcohol 99.1 05/12/22 05/12/22 05/12/22 19:40 19:53 19:53 WBC RBC Hgb Hct MCV MCH MCHC RDW Plt Count MPV Neut # (Auto) Lymph # (Auto) [place] # (Auto) Eos # (Auto) Baso # (Auto) Absolute Nucleated RBC Nucleated RBC % Sodium 136 Potassium 3.3 L Chloride 99 L Carbon Dioxide 16 L Anion Gap 21.0 H BUN 5 L Creatinine 0.8 Estimated GFR (MDRD) 114 Glucose 124 H Calcium 8.0 L Magnesium 2.0 Total Bilirubin AST ALT Alkaline Phosphatase Troponin I High Sens 6.2 Total Protein Albumin Globulin Albumin/Globulin Ratio Lipase Urine Color DARK YELLOW Urine Clarity CLEAR Urine pH 6.0 Ur Specific [place] >=1.030 H Urine Protein NEGATIVE Urine Glucose (UA) NEGATIVE Urine Ketones 15 H Urine Occult Blood NEGATIVE Urine Nitrite NEGATIVE Urine Bilirubin NEGATIVE Urine Urobilinogen 0.2 (NORMAL) Ur Leukocyte Esterase NEGATIVE Ur Microscopic Review NOT INDICATED Urine Culture Comments NOT INDICATED Urine Opiates Screen NEGATIVE Ur Oxycodone Screen NEGATIVE Urine Methadone Screen NEGATIVE Ur Propoxyphene Screen NEGATIVE Ur Barbiturates Screen NEGATIVE Ur Tricyclics Screen NEGATIVE Ur Phencyclidine Scrn NEGATIVE Ur Amphetamine Screen NEGATIVE U Methamphetamines Scrn NEGATIVE U Benzodiazepines Scrn NEGATIVE Urine Cocaine Screen NEGATIVE U Cannabinoids Screen NEGATIVE Ethyl Alcohol PD Medical Decision Making - ED course Complexity details: reviewed old records, reviewed results, re-evaluated patient, considered differential, d/w patient ED course: This is a 31-year-old male with a past medical history of alcoholism who presents with intractable nausea and vomiting and upper abdominal pain today after drinking heavily for the last couple of days and not taking any p.o. food. On arrival here, patient is tachycardic, he is retching, primarily dry heaving with occasional nonbloody emesis noted. His no reproducible abdominal pain on physical exam. We given IV fluids and obtain labs which show a white blood cell count of 10.9, stable CBC and CMP, his potassium is 3, mag is 2, and he has mild elevated LFTs with signs of alcoholic Ketoacidosis. He was given 1 L normal saline followed by a banana bag with magnesium and folic acid, as well as 10 mill equivalents of IV potassium and several antiemetics including 4 mg of Zofran, 12.5 of Phenergan and 1 mg of IV Ativan. He subsequently felt substantially better, and is tolerating p.o. juice and water. He also ate 1 cracker. Given additional liter of LR along with 20 mg minutes of p.o. potassium. His sx likely due to alcoholic gastritis, no signs of hematemesis, no pancreatitis per labs, and no focal abd pain to suggest surgical emergency. He had a recent CT scan which was reviewed as well, and was stable. HR remains elevated however patient is now well-appearing, tolerating p.o. not having any additional abdominal pain. I did offer him admission to the hospital for observation for additional IV hydration and monitoring his alcohol withdrawal symptoms however patient declines. He feels his back to baseline, states his heart rate is always elevated and he is having no symptoms in this regard. He will therefore be sent home, he has sober transport from his mom. He was advised to continue his antiemetics as needed, resume his home omeprazole and potassium replacement. He was strongly urged to stop drinking alcohol and counseled on the effects of his alcohol use including current Gastritis. I discussed with patient that this will get progressively worse if he continues to drink. He may need EGD in the future, advised to see PCP if ongoing sx and this can be done outpt. He was counseled on the fact that if he continues to consume alcohol, he We will continue to have alcohol related complications including, potentially, fatal complications. pt states understanding and repeatedly states he is aware and does plan to pursue sobriety so that he can be alive for his young son. Departure - Departure Disposition: Home, Self Care Clinical Impression: Hypokalemia, Intractable vomiting, Elevated liver enzymes Abdominal pain Qualifiers: Abdominal location: epigastric Qualified Code(s): R10.13 - Epigastric pain Alcohol intoxication Qualifiers: Complication of substance-induced condition: uncomplicated Qualified Code(s): F10.920 - Alcohol use, unspecified with intoxication, uncomplicated Alcoholic gastritis without bleeding Qualifiers: Chronicity: acute Qualified Code(s): K29.20 - Alcoholic gastritis without bleeding Condition: Good Instructions: ED Gastritis, ED Nausea Vomiting Comments: Please resume your daily omeprazole and the potassium replacement previously ordered. You can use nausea medication as needed. It is extremely important however that you stop drinking alcohol. Alcohol is causing these issues, likely resulting in gastritis or inflammation in the upper part of the stomach which leads to pain and nausea/vomiting. This will continue to happen as long as you continue to drink alcohol. You will likely need to go through a monitored program for alcohol withdrawal when you decide to stop as you may have significant withdrawal symptoms. Your potassium level was low here but we replaced it and it is starting to improve. You also showed signs of alcoholic ketosis do to not eating anything over the last several days and only drinking alcohol. This will improve as you start to eat some foods. Please start with very bland and easily digestible foods such as crackers, bread, bananas, applesauce. You can advance as tolerated. Please follow-up with your regular doctor for your chronic liver disease secondary to alcohol use and try to consider stopping alcohol altogether.
[2022-05-12 17:48] LABS: ALBUMIN 3.5 g/dL (3.2-5.5); ALBUMIN/GLOBULIN RATIO 0.9 (1.0-2.2); BILIRUBIN,TOTAL 1.7 mg/dL (0.2-1.0); CALCIUM 8.6 mg/dL (8.5-10.3); CREATININE 0.7 mg/dL (0.6-1.2); ETOH - ETHANOL 99.1 mg/dL; TOTAL PROTEIN 7.6 g/dL (6.7-8.2)
[2022-05-12] MEDS ORDERED: PROMETHAZINE 25 MG/1 ML VIAL ONE (17:54)
[2022-05-12] MEDS ORDERED: THIAMINE INJ 100 MG, MAGNESIUM SULFATE 2 GM, MULTIVITAMIN 10 ML, FOLIC ACID INJ 1 MG in... IV ONE ×10 (18:08→18:52)
[2022-05-12] MEDS ORDERED: POTASSIUM CHLOR 10 MEQ/100 ML 10 MEQ/100 ML BAG IV STA (18:09)
[2022-05-12] MEDS ORDERED: MULTIVITAMIN IV 10 ML VIAL ONE (18:36)
[2022-05-12] MEDS ORDERED: FOLIC ACID 5 MG/1 ML 10ML MDV ONE (18:36)
[2022-05-12] MEDS ORDERED: THIAMINE 100 MG/1 ML 2 ML MDV ONE (18:36)
[2022-05-12] MEDS ORDERED: MAGNESIUM SULFATE 1 GM/2 ML VIAL ONE (18:36)
[2022-05-12] MEDS ORDERED: LORazepam 2 MG/ML VIAL IVP STA (18:42)
[2022-05-12] MEDS ORDERED: FAMOTIDINE 20 MG/2 ML VIAL IVP STA (18:47)
[2022-05-12] MEDS ORDERED: MAG HYDROX/AL HYDROX/SIMETH 30 ML UDC PO STA (19:41)
[2022-05-12 19:44] LABS: MUDS CUTOFF CONCENTRATIONS CUTOFF CONC BELOW:
[2022-05-12 19:46] LABS: BILIRUBIN,URINE NEGATIVE (NEGATIVE); GLUCOSE, URINE (UA) NEGATIVE (NEGATIVE); KETONES,URINE (UA) 15 mg/dL (NEGATIVE); LEUKOCYTE ESTERASE, URINE NEGATIVE (NEGATIVE); NITRITE,URINE NEGATIVE (NEGATIVE); OCCULT BLOOD,URINE NEGATIVE (NEGATIVE); PROTEIN,URINE NEGATIVE (NEGATIVE); UROBILINOGEN,URINE 0.2 (NORMAL) E.U./dL (NORMAL)
[2022-05-12 19:47] LABS: CLARITY,URINE CLEAR (CLEAR)
[2022-05-12 19:56] LABS: AMPHETAMINE SCREEN,URINE NEGATIVE (NEGATIVE); BARBITURATE SCREEN,UR NEGATIVE (NEGATIVE); BENZODIAZEPINES SCREEN, URINE NEGATIVE (NEGATIVE); COCAINE SCREEN URINE NEGATIVE (NEGATIVE); METHADONE SCREEN, URINE NEGATIVE (NEGATIVE); METHAMPHETAMINES SCREEN, URINE NEGATIVE (NEGATIVE); OPIATE SCREEN, URINE NEGATIVE (NEGATIVE); OXYCODONE SCREEN, URINE NEGATIVE (NEGATIVE); PROPOXYPHENE SCREEN, URINE NEGATIVE (NEGATIVE); THC CANNABINOID SCREEN, URINE NEGATIVE (NEGATIVE); TRICYCLIC ANTIDEPRESSANT,URINE NEGATIVE (NEGATIVE)
[2022-05-12 20:21] LABS: CREATININE 0.8 mg/dL (0.6-1.2); POTASSIUM 3.3 mmol/L (3.5-5.0)
[2022-05-12] MEDS ORDERED: LACTATED RINGERS 1,000 ML IV STA (20:23)
[2022-05-12] MEDS ORDERED: POTASSIUM CHLORIDE 20 MEQ TABLET PO STA (20:48)
[2022-05-12] MEDS ORDERED: DROPERIDOL 5 MG/2 ML VIAL IVP STA (21:33)
[2022-05-12] MEDS ORDERED: PHENobarbital 65 MG/ML VIAL IM STA (21:33)
[2022-05-12 21:45] VITALS: BP 156/104
[2022-05-12] MEDS ORDERED: DROPERIDOL 5 MG/2 ML VIAL IM STA (21:45)
== END 2022-05-12 21:45 | disposition home or self-care (01) ==
LOC: EDUNIT# → ED 17:18
DX: K29.20 Alcoholic gastritis without bleeding (principal); R11.2 Nausea with vomiting, unspecified; R10.13 Epigastric pain; R94.5 Abnormal results of liver function studies; E87.6 Hypokalemia; F10.129 Alcohol abuse with intoxication, unspecified; Y90.4 Blood alcohol level of 80-99 mg/100 ml; F17.200 Nicotine dependence, unspecified, uncomplicated
CPT/HCPCS: 36415; 80048; 80053; 80306; 80320; 81003; 83690; 83735; 84484; 85025; 93005; 96361; 96365; 96366; 96367; 96368; 96372; 96375; 99285; A9270; J2060; J3411; J7040; J7120; 81001; 87086

== ENCOUNTER 2022-07-01 08:00 | Outpatient (CLI) | payer MEDICAID, OTHER ==
[2022-07-01 19:53] LABS: BASOPHILS % (AUTO) 0.5 %; EOSINOPHILS % (AUTO) 0.8 %; HCT - HEMATOCRIT 33.6 % (42.0-52.0); HGB - HEMOGLOBIN 11.2 g/dL (14.0-18.0); LYMPHOCYTES % (AUTO) 11.9 %; MEAN CORPUSCULAR HEMOGLOBIN 38.2 pg (27.0-31.0); MEAN CORPUSCULAR HGB CONC 33.3 g/dL (32.0-36.0); MEAN CORPUSCULAR VOLUME 114.7 fL (80.0-94.0); MEAN PLATELET VOLUME 11.1 fL (7.4-11.4); NEUTROPHILS % (AUTO) 78.1 %; PLT - PLATELET COUNT 375 10^3/uL (130-450); RED BLOOD COUNT 2.93 10^6/uL (4.70-6.10); RED CELL DISTRIBUTION WIDTH 25.8 % (12.0-15.0); WHITE BLOOD COUNT 22.9 x10^3/uL (4.8-10.8)
[2022-07-01 19:56] LABS: GLUCOSE, URINE (UA) NEGATIVE (NEGATIVE); KETONES,URINE (UA) NEGATIVE (NEGATIVE); LEUKOCYTE ESTERASE, URINE NEGATIVE (NEGATIVE); NITRITE,URINE NEGATIVE (NEGATIVE); OCCULT BLOOD,URINE NEGATIVE (NEGATIVE); PROTEIN,URINE NEGATIVE (NEGATIVE); UROBILINOGEN,URINE 1 (NORMAL) E.U./dL (NORMAL)
[2022-07-01 20:02] LABS: ABNORMAL LYMPHS % (MANUAL) 0 %
[2022-07-01 20:05] LABS: BACTERIA,URINE Rare /HPF (None Seen); BILIRUBIN,URINE LARGE (NEGATIVE); CLARITY,URINE CLEAR (CLEAR); ICTOTEST,URINE POSITIVE; INR 1.4 (0.8-1.2); PT - PROTHROMBIN TIME 15.2 secs (9.9-12.6); RBC,URINE 0-5 /HPF (0-5); SQUAMOUS EPITHELIAL CELL,UR RARE Squamous (<= Few); WBC,URINE 0-3 /HPF (0-3)
[2022-07-01 20:11] LABS: ALBUMIN 2.5 g/dL (3.2-5.5); ALBUMIN/GLOBULIN RATIO 0.6 (1.0-2.2); BILIRUBIN,TOTAL 9.4 mg/dL (0.2-1.0); CREATININE 0.5 mg/dL (0.6-1.2); TOTAL PROTEIN 6.4 g/dL (6.7-8.2)
[2022-07-01 20:20] LABS: THYROID STIMULATING HORMONE 3.53 uIU/mL (0.34-5.60)
[2022-07-01 20:29] LABS: CALCIUM 6.1 mg/dL (8.5-10.3); POTASSIUM 2.3 mmol/L (3.5-5.0)
[2022-07-01 20:48] LABS: BAND NEUTROPHILS % (MANUAL) 5 %; EOSINOPHILS # (MANUAL) 0.2 10^3/uL (0-0.7); LYMPHOCYTES # (MANUAL) 1.6 10^3/uL (1.5-3.5); LYMPHOCYTES % (MANUAL) 7 %; MONOCYTES # (MANUAL) 3.2 10^3/uL (0.0-1.0); NEUTROPHILS # (MANUAL) 17.9 10^3/uL (1.5-6.6)
[2022-07-01 20:51] LABS: DIFFERENTIAL COMMENT MANUAL DIFFERENTIAL; PLATELET ESTIMATE, MANUAL NORMAL (130-450,000) (NORMAL); PLATELET MORPHOLOGY NORMAL APPEARANCE (NORMAL); WBC MORPHOLOGY (MULTIPLE) NORMAL APPEARANCE (NORMAL)
== END 2022-07-01 23:59 | disposition home or self-care (01) ==
LOC: LAB.S 08:00
PROVIDERS: ATTEND Emergency Medicine
DX: R17 Unspecified jaundice (principal); M54.59 Other low back pain
CPT/HCPCS: 36415; 80053; 81001; 83690; 84443; 85025; 85610; 87086

== ENCOUNTER 2022-07-01 21:24 | Inpatient (IN) | payer MEDICAID, OTHER ==
[2022-07-01 22:09] LABS: BASOPHILS % (AUTO) 0.5 %; EOSINOPHILS % (AUTO) 0.9 %; HCT - HEMATOCRIT 31.3 % (42.0-52.0); HGB - HEMOGLOBIN 10.9 g/dL (14.0-18.0); LYMPHOCYTES % (AUTO) 10.7 %; MEAN CORPUSCULAR HEMOGLOBIN 38.1 pg (27.0-31.0); MEAN CORPUSCULAR HGB CONC 34.8 g/dL (32.0-36.0); MEAN CORPUSCULAR VOLUME 109.4 fL (80.0-94.0); MEAN PLATELET VOLUME 10.4 fL (7.4-11.4); NEUTROPHILS % (AUTO) 80.2 %; PLT - PLATELET COUNT 361 10^3/uL (130-450); RED BLOOD COUNT 2.86 10^6/uL (4.70-6.10); RED CELL DISTRIBUTION WIDTH 24.3 % (12.0-15.0)
[2022-07-01 22:11] LABS: ABNORMAL LYMPHS % (MANUAL) 0 %
[2022-07-01 22:17] LABS: BAND NEUTROPHILS % (MANUAL) 7 %; EOSINOPHILS # (MANUAL) 0.2 10^3/uL (0-0.7); LYMPHOCYTES # (MANUAL) 2.6 10^3/uL (1.5-3.5); LYMPHOCYTES % (MANUAL) 11 %; MONOCYTES # (MANUAL) 2.9 10^3/uL (0.0-1.0); NEUTROPHILS # (MANUAL) 18.2 10^3/uL (1.5-6.6)
[2022-07-01 22:19] LABS: DIFFERENTIAL COMMENT MANUAL DIFFERENTIAL; PLATELET ESTIMATE, MANUAL NORMAL (130-450,000) (NORMAL); PLATELET MORPHOLOGY NORMAL APPEARANCE (NORMAL); WBC MORPHOLOGY (MULTIPLE) NORMAL APPEARANCE (NORMAL)
[2022-07-01 22:32] LABS: ALBUMIN 2.4 g/dL (3.2-5.5); ALBUMIN/GLOBULIN RATIO 0.6 (1.0-2.2); ALKALINE PHOSPHATASE 141 IU/L (42-121); ALT ALANINE AMINOTRANSFERASE 54 IU/L (10-60); AST ASPARTATE AMINOTRANSFERASE 134 IU/L (10-42); BILIRUBIN,TOTAL 9.3 mg/dL (0.2-1.0); BUN - BLOOD UREA NITROGEN 6 mg/dL (6-20); CARBON DIOXIDE - CO2 31 mmol/L (21-32); CHLORIDE 90 mmol/L (101-111); CREATININE 0.5 mg/dL (0.6-1.2); ETOH - ETHANOL < 5.0 mg/dL; GFR - MDRD 195 (>89); GLUCOSE 139 mg/dL (70-100); MAGNESIUM 1.6 mg/dL (1.7-2.8); PHOSPHORUS 3.8 mg/dL (2.5-4.6); SODIUM 134 mmol/L (135-145); TOTAL PROTEIN 6.5 g/dL (6.7-8.2)
[2022-07-01 22:33] LABS: POTASSIUM 2.3 mmol/L (3.5-5.0)
[2022-07-01] MEDS ORDERED: POTASSIUM CHLOR 10 MEQ/100 ML 10 MEQ/100 ML BAG IV STA (23:07)
[2022-07-01] MEDS ORDERED: MAGNESIUM SULFATE 2 GRAM 2 GM/50 ML BAG IV ONE (23:10)
[2022-07-01] MEDS ORDERED: THIAMINE INJ 100 MG, MAGNESIUM SULFATE 2 GM, MULTIVITAMIN 10 ML, FOLIC ACID INJ 1 MG in... IV ONE ×5 (23:10)
[2022-07-01] MEDS ORDERED: SODIUM CHLORIDE 0.9% 1,000 ML IV STA (23:27)
[2022-07-01] MEDS ORDERED: FOLIC ACID 5 MG/1 ML 10ML MDV ONE (23:41)
[2022-07-01] MEDS ORDERED: THIAMINE 100 MG/1 ML 2 ML MDV ONE (23:41)
[2022-07-01] MEDS ORDERED: MAGNESIUM SULFATE 1 GM/2 ML VIAL ONE (23:41)
[2022-07-01] MEDS ORDERED: MULTIVITAMIN IV 10 ML VIAL ONE (23:41)
[2022-07-01 23:50] LABS: VBG PH 7.547 (7.31-7.41)
[2022-07-01 23:51] LABS: CALCIUM, IONIZED 0.72 mmol/L (1.15-1.33)
[2022-07-02] MEDS ORDERED: MULTIVITAMIN IV 10 ML VIAL ONE (00:07)
[2022-07-02] MEDS ORDERED: CALCIUM CARBONATE CHEW 500 MG TABLET PO STA (00:49)
[2022-07-02 01:06] LABS: MUDS CUTOFF CONCENTRATIONS CUTOFF CONC BELOW:
[2022-07-02 01:07] LABS: GLUCOSE, URINE (UA) NEGATIVE (NEGATIVE); KETONES,URINE (UA) TRACE mg/dL (NEGATIVE); LEUKOCYTE ESTERASE, URINE TRACE (NEGATIVE); NITRITE,URINE POSITIVE (NEGATIVE); OCCULT BLOOD,URINE NEGATIVE (NEGATIVE); PH,URINE 6.5 PH (5.0-7.5); PROTEIN,URINE 30 mg/dL (NEGATIVE); UROBILINOGEN,URINE 4 E.U./dL (NORMAL)
[2022-07-02 01:12] LABS: BILIRUBIN,URINE LARGE (NEGATIVE); CLARITY,URINE CLEAR (CLEAR); ICTOTEST,URINE POSITIVE
[2022-07-02 01:28] LABS: BACTERIA,URINE Rare /HPF (None Seen); MUCUS,URINE Few Strands; RBC,URINE 0-5 /HPF (0-5); SQUAMOUS EPITHELIAL CELL,UR RARE Squamous (<= Few)
[2022-07-02 01:30] LABS: AMPHETAMINE SCREEN,URINE NEGATIVE (NEGATIVE); BARBITURATE SCREEN,UR NEGATIVE (NEGATIVE); BENZODIAZEPINES SCREEN, URINE NEGATIVE (NEGATIVE); COCAINE SCREEN URINE NEGATIVE (NEGATIVE); METHADONE SCREEN, URINE NEGATIVE (NEGATIVE); METHAMPHETAMINES SCREEN, URINE NEGATIVE (NEGATIVE); OPIATE SCREEN, URINE NEGATIVE (NEGATIVE); OXYCODONE SCREEN, URINE NEGATIVE (NEGATIVE); PROPOXYPHENE SCREEN, URINE NEGATIVE (NEGATIVE); THC CANNABINOID SCREEN, URINE NEGATIVE (NEGATIVE); TRICYCLIC ANTIDEPRESSANT,URINE NEGATIVE (NEGATIVE)
--- NOTE | 2022-07-02 01:35 | ED Physician Documentation ---
History of Present Illness - Stated complaint Stated Complaint: DR WINKLER FOR LAB - Chief complaint Chief Complaint: General - History obtained from History obtained from: Patient - Additonal information Additional information: 31-year-old man with past medical history of alcohol abuse, quit cold turkey 12 days ago with subsequent nbnb vomiting and diarrhea, presents with Brown urine for the past several days as well as yellow skin. Patient was sent from walk-in clinic because of abnormal lab work. Review of Systems Constitutional: reports: Fatigue. denies: Fever GI: reports: Nausea, Vomiting, Diarrhea. denies: Abdominal Pain : reports: Other (brown urine). denies: Dysuria, Frequency Musculoskeletal: denies: Back pain PD PAST MEDICAL HISTORY - Past Medical History Cardiovascular: Other (Tachycardia) Respiratory: None Neuro: None Endocrine/Autoimmune: None GI: GERD : None HEENT: None Psych: Depression Musculoskeletal: None Derm: None - Past Surgical History Past Surgical History: No - Present Medications Home Medications: Ambulatory Orders Medication Instructions Recorded Confirmed Potassium Chloride 10 meq PO DAILY #20 tab 05/02/22 07/01/22 Omeprazole 20 mg PO DAILY 07/01/22 07/01/22 - Allergies Allergies/Adverse Reactions: Allergies Allergy/AdvReac Type Severity Reaction Status Date / Time No Known Drug Allergies Allergy Verified 07/01/22 21:32 - Social History Does the pt smoke?: Yes Smoking Status: Current every day smoker Does the pt drink ETOH?: Yes Does the pt have substance abuse?: Yes - Immunizations Immunizations are current?: Yes - POLST Patient has POLST: No PD ED PE NORMAL - Vitals Vital signs reviewed: Yes - General General: Alert and oriented X 3, No acute distress, Well developed/nourished - HEENT HEENT: Atraumatic, PERRL, EOMI - Neck Neck: Supple, no meningeal sign - Cardiac Cardiac: RRR - Respiratory Respiratory: No respiratory distress, Clear bilaterally - Abdomen Abdomen: Non tender, Non distended - Back Back: No CVA TTP - Derm Derm: Normal color, Warm and dry, Other (jaundiced appearing) - Neuro Neuro: Alert and oriented X 3, No motor deficit, No sensory deficit Results - Vitals Vitals: Vital Signs - 24 hr 07/01/22 07/01/22 07/01/22 21:33 22:07 23:00 Temperature 36.4 C L Heart Rate 121 H 123 H 118 H Respiratory 16 17 20 Rate Blood Pressure 121/77 108/71 125/85 H O2 Saturation 94 93 94 If not protocol : Oxygen Flow, liters/minute 07/01/22 07/02/22 07/02/22 23:30 00:00 00:30 Temperature Heart Rate 112 H 111 H 109 H Respiratory 20 20 19 Rate Blood Pressure 129/84 H 129/85 H O2 Saturation 96 96 If not protocol : Oxygen Flow, liters/minute 07/02/22 07/02/22 01:00 01:30 Temperature Heart Rate 112 H 108 H Respiratory 21 20 Rate Blood Pressure 113/77 126/73 O2 Saturation 91 L 96 If not protocol 2 : Oxygen Flow, liters/minute Oxygen O2 Source Nasal cannula Oxygen Flow Rate 2 - Labs Labs: Laboratory Tests 07/01/22 07/01/22 07/01/22 22:00 22:00 22:00 WBC 24.0 H RBC 2.86 L Hgb 10.9 L Hct 31.3 L MCV 109.4 H MCH 38.1 H MCHC 34.8 RDW 24.3 H Plt Count 361 MPV 10.4 Neut # (Auto) Not Reportable Lymph # (Auto) Not Reportable Gem # (Auto) Not Reportable Eos # (Auto) Not Reportable Baso # (Auto) Not Reportable Absolute Nucleated RBC Not Reportable Total Counted 100 Band Neuts % (Manual) 7 Abnorm Lymph % (Manual) 0 Nucleated RBC % Not Reportable Neutrophils # (Manual) 18.2 H Lymphocytes # (Manual) 2.6 Monocytes # (Manual) 2.9 H Eosinophils # (Manual) 0.2 Basophils # (Manual) 0.0 Differential Comment MANUAL DIFFERENTIAL WBC Morphology NORMAL APPEARANCE Platelet Estimate NORMAL (130-450,000) Platelet Morphology NORMAL APPEARANCE RBC Morph Micro Appear 1+ STOMATOCYTES VBG pH Ionized Calcium Sodium 134 L Potassium 2.3 L* Chloride 90 L Carbon Dioxide 31 Anion Gap 13.0 BUN 6 Creatinine 0.5 L Estimated GFR (MDRD) 195 Glucose 139 H Calcium 6.0 L* Phosphorus 3.8 Magnesium 1.6 L Total Bilirubin 9.3 H AST 134 H ALT 54 Alkaline Phosphatase 141 H Total Creatine Kinase 95 Total Protein 6.5 L Albumin 2.4 L Globulin 4.1 Albumin/Globulin Ratio 0.6 L Urine Color Urine Clarity Urine pH Ur Specific [place] Urine Protein Urine Glucose (UA) Urine Ketones Urine Occult Blood Urine Nitrite Urine Bilirubin Urine Urobilinogen Ur Leukocyte Esterase Urine RBC Urine WBC Ur Squamous Epith Cells Urine Bacteria Urine Mucus Ur Microscopic Review Urine Culture Comments Urine Opiates Screen Ur Oxycodone Screen Urine Methadone Screen Ur Propoxyphene Screen Ur Barbiturates Screen Ur Tricyclics Screen Ur Phencyclidine Scrn Ur Amphetamine Screen U Methamphetamines Scrn U Benzodiazepines Scrn Urine Cocaine Screen U Cannabinoids Screen Ethyl Alcohol < 5.0 07/01/22 07/02/22 23:44 00:48 WBC RBC Hgb Hct MCV MCH MCHC RDW Plt Count MPV Neut # (Auto) Lymph # (Auto) Gem # (Auto) Eos # (Auto) Baso # (Auto) Absolute Nucleated RBC Total Counted Band Neuts % (Manual) Abnorm Lymph % (Manual) Nucleated RBC % Neutrophils # (Manual) Lymphocytes # (Manual) Monocytes # (Manual) Eosinophils # (Manual) Basophils # (Manual) Differential Comment WBC Morphology Platelet Estimate Platelet Morphology RBC Morph Micro Appear VBG pH 7.547 H Ionized Calcium 0.72 L* Sodium Potassium Chloride Carbon Dioxide Anion Gap BUN Creatinine Estimated GFR (MDRD) Glucose Calcium Phosphorus Magnesium Total Bilirubin AST ALT Alkaline Phosphatase Total Creatine Kinase Total Protein Albumin Globulin Albumin/Globulin Ratio Urine Color DARK YELLOW Urine Clarity CLEAR Urine pH 6.5 Ur Specific [place] 1.020 Urine Protein 30 H Urine Glucose (UA) NEGATIVE Urine Ketones TRACE Urine Occult Blood NEGATIVE Urine Nitrite POSITIVE H Urine Bilirubin LARGE H Urine Urobilinogen 4 H Ur Leukocyte Esterase TRACE H Urine RBC 0-5 Urine WBC 4-5 Ur Squamous Epith Cells RARE Squamous Urine Bacteria Rare Urine Mucus Few Strands Ur Microscopic Review INDICATED Urine Culture Comments INDICATED Urine Opiates Screen NEGATIVE Ur Oxycodone Screen NEGATIVE Urine Methadone Screen NEGATIVE Ur Propoxyphene Screen NEGATIVE Ur Barbiturates Screen NEGATIVE Ur Tricyclics Screen NEGATIVE Ur Phencyclidine Scrn NEGATIVE Ur Amphetamine Screen NEGATIVE U Methamphetamines Scrn NEGATIVE U Benzodiazepines Scrn NEGATIVE Urine Cocaine Screen NEGATIVE U Cannabinoids Screen NEGATIVE Ethyl Alcohol PD Medical Decision Making - ED course ED course: 31-year-old man with history of alcohol abuse in remission presents with severe malnourishment with albumin 2.4, electrolyte derangements with potassium 2.3, calcium 6, magnesium 1.6, as well as anemia of 10.9 (13.62 months ago). Patient denies feeling feverish but does state that since quitting drinking alcohol he has been having vomiting and diarrhea with white blood cell count of 24. His LFTs are elevated with T. bili of 9.3 and AST ALT of 134/141. We do not have ultrasound overnight but he may benefit from eval tomorrow. CT ordered in the meantime. Urinalysis shows UTI which I treated with IV Rocephin. Blood culture sent. Discussed for admission with Dr. Saldana, [facility]. Departure - Departure Disposition: 66 [facility] DC/Xfer Clinical Impression: Hypokalemia, Hypocalcemia, Malnourished, Leukocytosis, Anemia, Hyperbilirubinemia, UTI (urinary tract infection) Condition: Serious
[2022-07-02] MEDS ORDERED: iohexoL-300 100 ML VIAL ONE (01:37)
--- NOTE | 2022-07-02 01:49 | HISTORY & PHYSICAL EXAMINATION ---
Chief Complaint - Chief Complaint Chief Complaint: Abnormal Labs History of Present Illness - Admitted From Admitted From:: ER - History Obtained From Records Reviewed: Yes History obtained from: Pt, ER Exam Limitations: H&P was conducted via video remotely, using Access Cart. - History of Present Illness HPI Comment/Other: 31 yo M with h/o ETOH abuse, GERD/Gastritis presented to the ER for c/o abnormal labs. Pt quit ETOH 12 days ago, cold turkey. He went through withdrawals at home, including Nausea/vomiting x 3 days, intermittent loose stools x 10 days, tea-colored urine, yellow skin x 1 week. No sick contacts. No travel. No unusual foods. Pt went to W/I clinic d/t symptoms, had labs done, then was called yesterday by clinic physician b/c of abnormal lab results and told to go to the ER. Pt's nausea has resolved. He still has loose stools about 3x/day: light brown stool. No abdo pain, no dysuria, no F/C, no CP/SOB, cough. In the ER, HR 121, WBC 24, Hgb 10.9, MCV 109.4, Na 134, K 2.3, Glc 139, Ca 6.0, Mg 1.6, Bili 9.3, AST 134, ETOH level <5, U/A: +Nitrite, +LE, +WBC, UDS neg. CT Abdo: done; results pending. Pt was given O2, IVF, Thiamine, Folate, MVI, MagSO4, KCl, Rocephin/Flagyl in the ER. History - Past Medical History Cardiovascular: reports: Other (Tachycardia) Respiratory: reports: None Neuro: reports: None Endocrine/Autoimmune: reports: None GI: reports: GERD : reports: None HEENT: reports: None Psych: reports: Depression Musculoskeletal: reports: None Derm: reports: None MRSA Hx?: No - POLST Patient has POLST: No Meds/Allgy - Home Medications Home Medications: Ambulatory Orders Medication Instructions Recorded Confirmed Potassium Chloride 10 meq PO DAILY #20 tab 05/02/22 07/01/22 Omeprazole 20 mg PO DAILY 07/01/22 07/01/22 - Allergies Allergies/Adverse Reactions: Allergies Allergy/AdvReac Type Severity Reaction Status Date / Time No Known Drug Allergies Allergy Verified 07/01/22 21:32 Review of Systems - All Other Systems All Other Systems: reports: Reviewed and negative Exam - Vital Signs Reviewed Vital Signs: Yes Vital Signs: Vital Signs x48h Temp Pulse Resp BP Pulse Ox O2 Flow Rate 07/02/22 01:30 108 H 20 126/73 96 2 07/02/22 01:00 112 H 21 113/77 91 L 07/02/22 00:30 109 H 19 07/02/22 00:00 111 H 20 129/85 H 96 07/01/22 23:30 112 H 20 129/84 H 96 07/01/22 23:00 118 H 20 125/85 H 94 07/01/22 22:07 123 H 17 108/71 93 07/01/22 21:33 36.4 C L 121 H 16 121/77 94 - Physical Exam General Appearance: positive: No acute distress, Other (Exam done by Access cart, but stethoscope not working) Eyes Bilateral: positive: PERRL Respiratory: positive: Other (per ER Provider: CTA B/L) Cardiovascular: positive: Other (per ER Provider: RRR, no murmurs) Abdomen: positive: Other (per ER Provider: non-distended, NT, Soft) Neurologic/Psychiatric: positive: Oriented x3, CN's nml (2-12) Conclusion/Plan - Problem List (1) Hyperbilirubinemia Conclusion/Plan: Elevated Bilirubin Painless Jaundice Elevated AST -Bili 9.3, AST 134 -CT Abdo: done; results pending. -Pt was given Rocephin/Flagyl in the ER. -will hold A/Bs and keep pt on clear liquid diet until results of CT abdo known -consider abdo U/S and GI consult, depending on CT abdo result Loose stools -check stool studies, CDiff -clear liquid diet UTI Leukocytosis Tachycardia -HR 121, WBC 24, U/A: +Nitrite, +LE, +WBC -UC pending -Pt was given IVF, Rocephin in the ER. -continue Rocephin Anemia, macrocytic -Hgb 10.9, MCV 109.4 -check B12/Folate levels Hyponatremia Hypokalemia Hypocalcemia Low Magnesium -Na 134, K 2.3, Ca 6.0, Mg 1.6 -most likely d/t N/V/D -Pt was given IVF, MVI, MagSO4, KCl in the ER. -continue to supplement PRN Hyperglycemia -Glc 139 -check Hgba1c H/o ETOH abuse -Pt quit ETOH 12 days ago; plans to stay off ETOH -ETOH<5, UDS neg. H/o GERD/Gastritis -continue home medications: PPI H/o Depression -supportive care -consider counseling or Psych consult VTE Prophylaxis: Lovenox Code Status: Full Code ~Jeanie Saldana MD Hospitalist - Lab Results Fish Bones: 07/01/22 22:00 07/02/22 02:24
[2022-07-02] MEDS ORDERED: cefTRIAXone 1 GM VIAL IVP STA (01:57)
[2022-07-02] MEDS ORDERED: iohexoL-300 100 ML VIAL IVP ONE (02:24)
[2022-07-02] MEDS ORDERED: metroNIDAZOLE 500 MG/100 ML 500 MG/100 ML BAG IV ONE (02:36)
[2022-07-02] MEDS ORDERED: SODIUM CHLORIDE FLUSH 0.9% 10 ML SYRINGE IVP PRN (02:56)
[2022-07-02] MEDS ORDERED: ONDANSETRON ODT 4 MG TABLET TL PRN (02:56)
[2022-07-02] MEDS ORDERED: ONDANSETRON 4 MG/2 ML VIAL IVP PRN (02:56)
[2022-07-02] MEDS ORDERED: ACETAMINOPHEN 325 MG TABLET PO PRN (02:56)
[2022-07-02] MEDS ORDERED: POTASSIUM CHLORIDE INJ 40 MEQ in SODIUM CHLORIDE 0.9% 500 ML IV ONE (03:52)
[2022-07-02] MEDS: SODIUM CHLORIDE 0.9% 1,000 ML IV SCH ×3 (04:00→22:40)
[2022-07-02] MEDS: POTASSIUM CHLOR 10 MEQ/100 ML 10 MEQ/100 ML BAG IV SCH ×12 (06:04→23:08)
[2022-07-02] MEDS ORDERED: CALCIUM CARBONATE CHEW 500 MG TABLET PO PRN (06:18)
--- NOTE | 2022-07-02 08:02 | CT Report ---
PROCEDURE: ABDOMEN/PELVIS W INDICATIONS: elevated LFTs, n/v/d CONTRAST: Omni 300 100ml TECHNIQUE: After the administration of oral and intravenous contrast, 5 mm thick sections acquired from the diap hragms to the symphysis. 5 mm thick coronal and sagittal reformats were acquired. For radiation dos e reduction, the following was used: automated exposure control, adjustment of mA and/or kV accordin g to patient size. COMPARISON: None. FINDINGS: Image quality: Excellent. ABDOMEN: Lung bases: Lung bases are clear. Heart size is normal. Liver: Marked hepatic steatosis. Gallbladder: Contracted. Spleen: Unremarkable. Kidneys: Unremarkable. Adrenals: Unremarkable. Pancreas: Homogeneous enhancement. No ductal dilatation. No adjacent fat stranding. Peritoneum and bowel: Bowel loops demonstrate normal wall thickness and caliber. Moderate volume snow e fluid. Nodes and vessels: No retroperitoneal or mesenteric adenopathy by size criteria. Aorta and inferior vena cava are normal in size. Miscellaneous: No ventral hernias. PELVIS: Genitourinary: Bladder wall thickness is normal. Miscellaneous: Fat within the right inguinal canal. Bones: No suspicious bony lesions. No vertebral body compression fractures. IMPRESSION: 1.Homogeneous enhancement of the pancreas, without adjacent fat stranding. No CT evidence of acute pa ncreatitis at this time. 2.Small volume free fluid in the pelvis, presumably pathologic. 3.Clinically significant hepatic steatosis. Reviewed by: Walt Ruvalcaba on 07/02/2022 8:00 AM PDT Approved by: Walt Ruvalcaba on 07/02/2022 8:00 AM PDT Station ID: [id number]
[2022-07-02] MEDS: PANTOPRAZOLE 40 MG TABLET PO SCH (08:07)
[2022-07-02] MEDS: SODIUM CHLORIDE FLUSH 0.9% 10 ML SYRINGE IVP SCH ×2 (08:07→17:19)
[2022-07-02] MEDS: ENOXAPARIN 40 MG/0.4 ML SYRINGE SUBQ SCH (08:07)
[2022-07-02] MEDS: POTASSIUM CHLORIDE 10 MEQ CAPSULE PO SCH (08:07)
[2022-07-02 08:27] LABS: BASOPHILS # (AUTO) 0.1 10^3/uL (0.0-0.1); BASOPHILS % (AUTO) 0.5 %; EOSINOPHILS # (AUTO) 0.1 10^3/uL (0.0-0.7); EOSINOPHILS % (AUTO) 0.5 %; HGB - HEMOGLOBIN 9.7 g/dL (14.0-18.0); LYMPHOCYTES # (AUTO) 1.9 10^3/uL (1.5-3.5); LYMPHOCYTES % (AUTO) 9.7 %; MEAN CORPUSCULAR HEMOGLOBIN 38.5 pg (27.0-31.0); MEAN CORPUSCULAR HGB CONC 34.6 g/dL (32.0-36.0); MEAN CORPUSCULAR VOLUME 111.1 fL (80.0-94.0); MEAN PLATELET VOLUME 10.4 fL (7.4-11.4); MONOCYTES # (AUTO) 1.6 10^3/uL (0.0-1.0); NEUTROPHILS # (AUTO) 16.2 10^3/uL (1.5-6.6); NEUTROPHILS % (AUTO) 80.8 %; PLT - PLATELET COUNT 300 10^3/uL (130-450); RED BLOOD COUNT 2.52 10^6/uL (4.70-6.10); RED CELL DISTRIBUTION WIDTH 23.9 % (12.0-15.0); WHITE BLOOD COUNT 20.1 x10^3/uL (4.8-10.8)
[2022-07-02 08:33] LABS: SLIDE REVIEW? Indicated
[2022-07-02 08:47] LABS: ALBUMIN 2.2 g/dL (3.2-5.5); ALBUMIN/GLOBULIN RATIO 0.6 (1.0-2.2); BILIRUBIN,TOTAL 7.9 mg/dL (0.2-1.0); CREATININE 0.4 mg/dL (0.6-1.2); MAGNESIUM 2.2 mg/dL (1.7-2.8); TOTAL PROTEIN 5.7 g/dL (6.7-8.2)
[2022-07-02 08:53] LABS: CALCIUM 5.5 mg/dL (8.5-10.3); POTASSIUM 2.4 mmol/L (3.5-5.0)
[2022-07-02] MEDS: THIAMINE 100 MG TABLET PO SCH (09:18)
[2022-07-02 10:17] LABS: ESTIMATED AVERAGE GLUCOSE 68 mg/dL (70-100)
[2022-07-02] MEDS ORDERED: CALCIUM GLUC 1,000MG/50ML-NACL 1,000 MG/50 ML BAG IV ONE (12:00)
[2022-07-02] MEDS: PRENATAL VITAMIN TABLET PO SCH (12:06)
--- NOTE | 2022-07-02 13:01 | PHARMACY PROGRESS NOTE ---
- Best Possible Medication History Admit Date and Time: 07/02/22 0256 Processed by: Pharmacy Medication History completed: Yes Patient Interview: Completed (Pt only uses otc meds now) As the person ultimately responsible for medication therapy, providers are able to order a medication from an existing home medication list in [facility] via the "Reconcile Routine" prior to Confirmation of that medication by aircraft life support fitter. Such practice is discouraged except when the physician, in their clinical judgment, deems that a medical need exists for a medication without regard to previous use.
[2022-07-02 13:58] LABS: POTASSIUM 2.6 mmol/L (3.5-5.0)
[2022-07-02 14:02] LABS: CALCIUM 5.7 mg/dL (8.5-10.3)
--- NOTE | 2022-07-02 17:38 | PROVIDER PROGRESS NOTE ---
Assessment/Plan - Problem List (1) V-tach Assessment/Plan: Patient presented with atrial tachycardia, rate 110. It was felt to be due to dehydration. Today at approximately 1300, the patient went into SVT at a rate of 170 with a portion of it being wide-complex monomorphic tachycardia consistent with V. t ach. He was asymptomatic, and BP was stable. Stat calcium, magnesium, potassium and troponin were done and were normal EKG was done that showed no ischemic changes This SVT and non-sustained VT are very likely due to his severe potassium depletion and low calcium and low magnesium Plan: Will check his TFTs Remain on telemetry Awaiting Echo report. If finding on Echo is a depressed LVEF (as with possible alcoholic cardiomyopathy), then we will transfer pt to the ICU and start antiarrhythmic with amiodarone (CRITICAL CARE TIME SPENT: 45 MIN) (2) Hypokalemia Assessment/Plan: Serum K has been 3- 3.2 despite replacement, likely due to poor nutrition plus losses in nausea and vomiting Plan: We will continue to give IV K riders and follow his serum sodium every 8-12 hours When the diet is advanced we will also add oral potassium if he can tolerate it 3) Hypocalcemia Adm Ca was 6.0, but he hjas a low Alb of 2.2 Likely his low Ca and Alb are due to poor nutrition plus possibly from losses in nausea and vomiting Plan: We will replace with IV Ca and follow his serum Ca daily When the diet is advanced we will also add oral Ca if he can tolerate it 4) Hypomagnesemia Adm Mg was 1.6 Likely due to poor nutrition plus losses in nausea and vomiting Plan: We will continue to give IV Mg riders and follow his serum sodium every 12-24 hrs When the diet is advanced we will also add oral Mag if he can tolerate it 5) Elevated LFTs Elevated Bilirubin, with painless jaundice. He also has elevated AST 2 times higher than his ALT. CT abdomen was done and this shows a very large liver, gallbladder is contracted and has no stones Plan: No need for abdominal ultrasound given the findings on the CT with an unremarkable pancreas and gallbladder We will start to advance his diet 6) Ascites The abdomen CT did show marked hepatomegaly and small amt of ascites Plan: Today I repeated the need for abstaining from alcohol, with the patient agreeing GI follow-up after discharge will be recommended 7) Bacteriuria Patient did describe urinary frequency but denied any other symptoms such as dysuria. U/A was abn with +Nitrite, +LE, +WBC. He has had tachycardia and leukocytosis with WBC 24 Plan: He was started on empiric IV antibiotics which will be continued Await urine culture result 8) Anemia, macrocytic Hgb 10.9, MCV 109. This is consistent with his heavy alcohol and Plan: Will check B12/Folate levels 9) H/o ETOH abuse The patient described to me that he would drink 1/5 of vodka a day and 212 ounce beers per day for the last 1 year. It started when he got . Pt quit ETOH 12 days ago and said his DTs were mild; he plans to stay off ETOH His adm serum ETOH was<5, and MUDS was neg. Plan: He received 1 bag of banana bag in the ER. As we are starting to advance the diet, so we will start him on oral thiamine and oral daily vitamins SW to see to provider other resources 10) Hyperglycemia Gluc was 139. CT abd did not show pancreas abn. His Hgba1c came normal back at 4.0. Suspect the WBC may be elevated from "stress" Plan: No DM diet will be ordered 11) Hyponatremia Adm Na 134 This is most likely d/t N/V/D Plan: Will continue to supplement iv NS, tapering down as diet is advanced Follow BMP daily 12) GERD/Gastritis Plan: continue home medications: PPI 13) H/o Depression -supportive care -consider counseling or Psych consult 14) Loose stools This was inaccurate. Actually, the patient denied loose or watery stools to me but said he has incomplete emptying and then urgency to defecate again, and has had soft but formed BMs Plan: We will remove Diarrhea from his problem list Will cancel stool studies, cancel CDiff order Will advance his diet - Current Meds Current Meds: Current Medications Generic Name Dose Route Start Last Admin Trade Name Freq PRN Reason Stop Dose Admin Enoxaparin Sodium 40 mg 07/02/22 09:00 07/02/22 08:07 Enoxaparin 40 Mg/0.4 Ml Syringe SUBQ 40 mg DAILY [place] Administration Sodium Chloride 1,000 mls @ 100 mls/hr 07/02/22 03:00 07/02/22 13:09 Normal Saline 0.9% IV 100 mls/hr .Q10H [place] Administration Potassium Chloride 10 meq in 100 mls @ 100 mls/hr 07/02/22 11:00 07/02/22 17:22 Potassium Chloride IV 07/02/22 14:59 75 mls/hr Q1H [facility] Administration Pantoprazole Sodium 40 mg 07/02/22 09:00 07/02/22 08:07 Pantoprazole 40 Mg Tablet PO 40 mg DAILY [place] Administration Potassium Chloride 10 meq 07/02/22 09:00 07/02/22 08:07 Potassium Chloride 10 Meq Capsule PO 10 meq DAILY [facility] Administration Multivit/Folic Acid/Iron 1 tab 07/02/22 12:00 07/02/22 12:06 Vitamin Tablet PO 1 tab DAILYWM [facility] Administration Sodium Chloride 10 ml 07/02/22 09:00 07/02/22 17:19 Sodium Chloride Flush 0.9% 10 Ml Syringe IVP Not Given 0100,0900,1700 [facility]TON Thiamine HCl 100 mg 07/02/22 09:00 07/02/22 09:18 Thiamine 100 Mg Tablet PO 100 mg DAILY [place] Administration - Lab Result Fish Bone Diagrams: 07/03/22 05:31 07/03/22 05:31 - EKG Results EKG Interpreted Independently: Yes EKG Findings: Sinus tachycardia or ectopic atrial tachycardia (with downward P wave in lead III), rate 105. Prolonged QT interval of 513 msec. Lateral T wave flattening. Since EKG from the previous day 07/01/22, the IL interval has normalized, other findings are similar. - Additional Planning My Orders: My Active Orders 07/02/22 09:00 Thiamine [Vitamin B-1] 100 mg PO DAILY 07/02/22 10:23 Telemetry- [RC] Q4HR 07/02/22 11:00 Potassium Chlor 10 Meq/100 ml [Potassium Chloride] 10 meq in 100 ml IV Q1H 07/02/22 Lunch Hepatic/Renal Diet [DIET] 07/02/22 12:00 Vitamin [Trinatal Rx 1] 1 tab PO DAILYWM 07/02/22 16:00 Potassium Chlor 10 Meq/100 ml [Potassium Chloride] 10 meq in 100 ml IV Q1H 07/02/22 17:25 Miscellaenous Nursing Order [RC] QSHIFT 07/02/22 22:00 Calcium Carbonate [Tums] 500 mg PO TID 07/03/22 Breakfast DIET [Regular Diet] [DIET] Subjective - Subjective Patient Reports: Resting Comfortably, No Complaints Objective Vital Signs: Vital Signs - 24 hr 07/01/22 07/01/22 07/01/22 21:33 22:07 23:00 Temperature 36.4 C L Heart Rate 121 H 123 H 118 H Heart Rate [ Brachial] Heart Rate [ Monitoring electrodes] Respiratory 16 17 20 Rate Blood Pressure 121/77 108/71 125/85 H Blood Pressure [Left Brachial artery] O2 Saturation 94 93 94 If not protocol : Oxygen Flow, liters/minute 07/01/22 07/02/22 07/02/22 23:30 00:00 00:30 Temperature Heart Rate 112 H 111 H 109 H Heart Rate [ Brachial] Heart Rate [ Monitoring electrodes] Respiratory 20 20 19 Rate Blood Pressure 129/84 H 129/85 H Blood Pressure [Left Brachial artery] O2 Saturation 96 96 If not protocol : Oxygen Flow, liters/minute 07/02/22 07/02/22 07/02/22 01:00 01:30 02:00 Temperature Heart Rate 112 H 108 H 110 H Heart Rate [ Brachial] Heart Rate [ Monitoring electrodes] Respiratory 21 20 19 Rate Blood Pressure 113/77 126/73 102/82 H Blood Pressure [Left Brachial artery] O2 Saturation 91 L 96 94 If not protocol 2 2 : Oxygen Flow, liters/minute 07/02/22 07/02/22 07/02/22 02:30 03:53 05:14 Temperature 37.1 C 36.9 C Heart Rate 107 H Heart Rate [ Brachial] Heart Rate [ 109 H 113 H Monitoring electrodes] Respiratory 16 20 18 Rate Blood Pressure 113/65 Blood Pressure 130/77 154/89 H [Left Brachial artery] O2 Saturation 93 94 94 If not protocol 2 : Oxygen Flow, liters/minute 07/02/22 07/02/22 07/02/22 07:45 10:44 16:34 Temperature 36.9 C 37.0 C Heart Rate Heart Rate [ 110 H 109 H 103 H Brachial] Heart Rate [ Monitoring electrodes] Respiratory 18 20 20 Rate Blood Pressure Blood Pressure 114/84 H 129/78 [Left Brachial artery] O2 Saturation 92 97 93 If not protocol : Oxygen Flow, liters/minute Oxygen O2 Source Room air Oxygen Flow Rate 2 I&O (Last 24 Hrs): Intake and Output Totals x24h 06/30/22 07/01/22 07/02/22 23:59 23:59 23:59 Intake Total 3767 Balance 3767 General: Alert, Oriented x3 HEENT: Mucous membr. moist/pink, Other (ictyeric sclerae) Neck: Supple, No JVD Neuro: Alert, Non Focal, Other (No nystagmus, no liver flap) Cardiovascular: Regular rate, No murmurs Respiratory: No respiratory distress Abdomen: Normal bowel sounds, No tenderness, Other (Distended, enlarged liver) Extremities: No clubbing, No edema, No tenderness/swelling - Results Results: Laboratory Results WBC 20.1 x10^3/uL (4.8-10.8) H 07/02/22 08:19 RBC 2.52 10^6/uL (4.70-6.10) L 07/02/22 08:19 Hgb 9.7 g/dL (14.0-18.0) L 07/02/22 08:19 Hct 28.0 % (42.0-52.0) L 07/02/22 08:19 MCV 111.1 fL (80.0-94.0) H 07/02/22 08:19 MCH 38.5 pg (27.0-31.0) H 07/02/22 08:19 MCHC 34.6 g/dL (32.0-36.0) 07/02/22 08:19 RDW 23.9 % (12.0-15.0) H 07/02/22 08:19 Plt Count 300 10^3/uL (130-450) 07/02/22 08:19 MPV 10.4 fL (7.4-11.4) 07/02/22 08:19 Neut # (Auto) 16.2 10^3/uL (1.5-6.6) H 07/02/22 08:19 Lymph # (Auto) 1.9 10^3/uL (1.5-3.5) 07/02/22 08:19 [place] # (Auto) 1.6 10^3/uL (0.0-1.0) H 07/02/22 08:19 Eos # (Auto) 0.1 10^3/uL (0.0-0.7) 07/02/22 08:19 Baso # (Auto) 0.1 10^3/uL (0.0-0.1) 07/02/22 08:19 Absolute Nucleated RBC 0.00 x10^3/uL 07/02/22 08:19 Total Counted 100 07/01/22 22:00 Band Neuts % (Manual) 7 % (0-10) 07/01/22 22:00 Abnorm Lymph % (Manual) 0 % 07/01/22 22:00 Nucleated RBC % 0.0 /100WBC 07/02/22 08:19 Neutrophils # (Manual) 18.2 10^3/uL (1.5-6.6) H 07/01/22 22:00 Lymphocytes # (Manual) 2.6 10^3/uL (1.5-3.5) 07/01/22 22:00 Monocytes # (Manual) 2.9 10^3/uL (0.0-1.0) H 07/01/22 22:00 Eosinophils # (Manual) 0.2 10^3/uL (0-0.7) 07/01/22 22:00 Basophils # (Manual) 0.0 10^3/uL (0-0.1) 07/01/22 22:00 Differential Comment MANUAL DIFFERENTIAL 07/01/22 22:00 Manual Slide Review Indicated 07/02/22 08:19 WBC Morphology NORMAL APPEARANCE (NORMAL) 07/01/22 22:00 Platelet Estimate NORMAL (130-450,000) (NORMAL) 07/01/22 22:00 Platelet Morphology NORMAL APPEARANCE (NORMAL) 07/01/22 22:00 RBC Morph Micro Appear 4+ ANISOCYTOSIS (NORMAL) 2+ MACROCYTOSIS (NORMAL) 1+ POLYCHROMASIA (NORMAL) 07/02/22 08:19 RBC Morph Micro Appear 4+ ANISOCYTOSIS (NORMAL) 2+ MACROCYTOSIS (NORMAL) 1+ POLYCHROMASIA (NORMAL) 07/02/22 08:19 RBC Morph Micro Appear 4+ ANISOCYTOSIS (NORMAL) 2+ MACROCYTOSIS (NORMAL) 1+ POLYCHROMASIA (NORMAL) 07/02/22 08:19 VBG pH 7.547 (7.31-7.41) H 07/01/22 23:44 Ionized Calcium 0.72 mmol/L (1.15-1.33) L* 07/01/22 23:44 Sodium 134 mmol/L (135-145) L 07/02/22 08:19 Potassium 2.6 mmol/L (3.5-5.0) L 07/02/22 16:04 Chloride 96 mmol/L (101-111) L 07/02/22 08:19 Carbon Dioxide 27 mmol/L (21-32) 07/02/22 08:19 Anion Gap 11.0 (6-13) 07/02/22 08:19 BUN 5 mg/dL (6-20) L 07/02/22 08:19 Creatinine 0.4 mg/dL (0.6-1.2) L 07/02/22 08:19 Estimated GFR (MDRD) 253 (>89) 07/02/22 08:19 Glucose 139 mg/dL (70-100) H 07/02/22 08:19 Estimat Average Glucose 68 mg/dL (70-100) L 07/02/22 02:34 Hemoglobin A1c % 4.0 % (4.27-6.07) L 07/02/22 02:34 Calcium 5.7 mg/dL (8.5-10.3) L* 07/02/22 13:35 Phosphorus 3.8 mg/dL (2.5-4.6) 07/01/22 22:00 Magnesium 2.0 mg/dL (1.7-2.8) 07/02/22 13:35 Total Bilirubin 7.9 mg/dL (0.2-1.0) H 07/02/22 08:19 AST 116 IU/L (10-42) H 07/02/22 08:19 ALT 49 IU/L (10-60) 07/02/22 08:19 Alkaline Phosphatase 121 IU/L (42-121) 07/02/22 08:19 Total Creatine Kinase 95 IU/L (22-269) 07/01/22 22:00 Troponin I High Sens 12.0 ng/L (2.3-19.7) 07/02/22 15:18 Total Protein 5.7 g/dL (6.7-8.2) L 07/02/22 08:19 Albumin 2.2 g/dL (3.2-5.5) L 07/02/22 08:19 Globulin 3.5 g/dL (2.1-4.2) 07/02/22 08:19 Albumin/Globulin Ratio 0.6 (1.0-2.2) L 07/02/22 08:19 Vitamin B12 752 pg/mL (180-914) 07/02/22 02:34 Folate 33.00 ng/mL (5.90 - >24.8) 07/02/22 02:34 Urine Color DARK YELLOW 07/02/22 00:48 Urine Clarity CLEAR (CLEAR) 07/02/22 00:48 Urine pH 6.5 PH (5.0-7.5) 07/02/22 00:48 Ur Specific [place] 1.020 (1.002-1.030) 07/02/22 00:48 Urine Protein 30 mg/dL (NEGATIVE) H 07/02/22 00:48 Urine Glucose (UA) NEGATIVE mg/dL (NEGATIVE) 07/02/22 00:48 Urine Ketones TRACE mg/dL (NEGATIVE) 07/02/22 00:48 Urine Occult Blood NEGATIVE (NEGATIVE) 07/02/22 00:48 Urine Nitrite POSITIVE (NEGATIVE) H 07/02/22 00:48 Urine Bilirubin LARGE (NEGATIVE) H 07/02/22 00:48 Urine Urobilinogen 4 E.U./dL (NORMAL) H 07/02/22 00:48 Ur Leukocyte Esterase TRACE (NEGATIVE) H 07/02/22 00:48 Urine RBC 0-5 /HPF (0-5) 07/02/22 00:48 Urine WBC 4-5 /HPF (0-3) 07/02/22 00:48 Ur Squamous Epith Cells RARE Squamous (<= Few) 07/02/22 00:48 Urine Bacteria Rare /HPF (None Seen) 07/02/22 00:48 Urine Mucus Few Strands 07/02/22 00:48 Ur Microscopic Review INDICATED 07/02/22 00:48 Urine Culture Comments INDICATED 07/02/22 00:48 Urine Opiates Screen NEGATIVE (NEGATIVE) 07/02/22 00:48 Ur Oxycodone Screen NEGATIVE (NEGATIVE) 07/02/22 00:48 Urine Methadone Screen NEGATIVE (NEGATIVE) 07/02/22 00:48 Ur Propoxyphene Screen NEGATIVE (NEGATIVE) 07/02/22 00:48 Ur Barbiturates Screen NEGATIVE (NEGATIVE) 07/02/22 00:48 Ur Tricyclics Screen NEGATIVE (NEGATIVE) 07/02/22 00:48 Ur Phencyclidine Scrn NEGATIVE (NEGATIVE) 07/02/22 00:48 Ur Amphetamine Screen NEGATIVE (NEGATIVE) 07/02/22 00:48 U Methamphetamines Scrn NEGATIVE (NEGATIVE) 07/02/22 00:48 U Benzodiazepines Scrn NEGATIVE (NEGATIVE) 07/02/22 00:48 Urine Cocaine Screen NEGATIVE (NEGATIVE) 07/02/22 00:48 U Cannabinoids Screen NEGATIVE (NEGATIVE) 07/02/22 00:48 Ethyl Alcohol < 5.0 mg/dL 07/01/22 22:00 - Procedures Procedures: Procedures CLOSURE SKIN & SUBCUTANEOUS NEC (11/17/12)
[2022-07-02] MEDS: CALCIUM CARBONATE CHEW 500 MG TABLET PO SCH (21:45)
[2022-07-03] MEDS: SODIUM CHLORIDE FLUSH 0.9% 10 ML SYRINGE IVP SCH ×4 (00:20→23:17)
[2022-07-03] MEDS: CALCIUM CARBONATE CHEW 500 MG TABLET PO SCH ×3 (05:35→22:05)
[2022-07-03 05:57] LABS: BASOPHILS # (AUTO) 0.1 10^3/uL (0.0-0.1); BASOPHILS % (AUTO) 0.6 %; EOSINOPHILS # (AUTO) 0.2 10^3/uL (0.0-0.7); EOSINOPHILS % (AUTO) 0.9 %; HCT - HEMATOCRIT 27.1 % (42.0-52.0); HGB - HEMOGLOBIN 9.4 g/dL (14.0-18.0); LYMPHOCYTES # (AUTO) 1.8 10^3/uL (1.5-3.5); LYMPHOCYTES % (AUTO) 10.5 %; MEAN CORPUSCULAR HEMOGLOBIN 38.7 pg (27.0-31.0); MEAN CORPUSCULAR HGB CONC 34.7 g/dL (32.0-36.0); MEAN CORPUSCULAR VOLUME 111.5 fL (80.0-94.0); MEAN PLATELET VOLUME 11.3 fL (7.4-11.4); MONOCYTES # (AUTO) 1.5 10^3/uL (0.0-1.0); MONOCYTES % (AUTO) 8.6 %; NEUTROPHILS # (AUTO) 13.7 10^3/uL (1.5-6.6); NEUTROPHILS % (AUTO) 78.9 %; PLT - PLATELET COUNT 255 10^3/uL (130-450); RED BLOOD COUNT 2.43 10^6/uL (4.70-6.10); RED CELL DISTRIBUTION WIDTH 23.3 % (12.0-15.0); WHITE BLOOD COUNT 17.4 x10^3/uL (4.8-10.8)
[2022-07-03 06:15] LABS: BUN - BLOOD UREA NITROGEN < 5 mg/dL (6-20); CARBON DIOXIDE - CO2 25 mmol/L (21-32); CHLORIDE 102 mmol/L (101-111); CREATININE 0.4 mg/dL (0.6-1.2); GFR - MDRD 253 (>89); GLUCOSE 107 mg/dL (70-100); POTASSIUM 2.9 mmol/L (3.5-5.0); SODIUM 137 mmol/L (135-145)
[2022-07-03 06:18] LABS: CALCIUM 5.7 mg/dL (8.5-10.3)
[2022-07-03 06:25] LABS: THYROID STIMULATING HORMONE 3.26 uIU/mL (0.34-5.60)
[2022-07-03 06:27] LABS: FREE T4 (FREE THYROXINE) 1.73 ng/dL (0.58-1.64)
[2022-07-03] MEDS: SODIUM CHLORIDE 0.9% 1,000 ML IV SCH ×2 (08:20→18:35)
[2022-07-03] MEDS: PANTOPRAZOLE 40 MG TABLET PO SCH (08:27)
[2022-07-03] MEDS: PRENATAL VITAMIN TABLET PO SCH (08:27)
[2022-07-03] MEDS: THIAMINE 100 MG TABLET PO SCH (08:27)
[2022-07-03] MEDS: ENOXAPARIN 40 MG/0.4 ML SYRINGE SUBQ SCH (08:27)
[2022-07-03] MEDS: POTASSIUM CHLORIDE 10 MEQ CAPSULE PO SCH (08:28)
--- NOTE | 2022-07-03 08:47 | PROVIDER PROGRESS NOTE ---
Assessment/Plan - Problem List (1) Hypokalemia Assessment/Plan: Serum K has been <3 despite aggressive iv and po replacement, likely due to poor nutrition from severe alcoholism plus losses in recent nausea and vomiting Plan: We will continue to give IV K riders and follow his serum sodium every 12 hours Cont replacement with oral potassium as well 2) Hypocalcemia Assessment/Plan: Adm Ca was 6.0, but he had a low Alb of 2.2 Likely his low Ca and Alb are due to poor nutrition plus poss from losses in nausea and vomiting Plan: We will give IV CA and follow his serum Ca daily We will also add oral Ca if he can tolerate it 3) Hypomagnesemia Assessment/Plan: Adm Mg was 1.6 Likely due to poor nutrition plus losses in nausea and vomiting Plan: We will continue to give IV Mg riders and follow his serum sodium every 12-24 hr s We will also add oral Mag if he can tolerate it 4) Elevated LFTs Assessment/Plan: Elevated Bilirubin, with painless jaundice. He also has elevated AST 2 times higher than his ALT. CT abdomen was done and this shows a very large liver, gallbladder is contracted and has no stones. The LFTs are slightly improving, after his last alcohol intake was 13 days ago. Plan: No need for abdominal ultrasound given the findings on the CT with an unremarkable pancreas and gallbladder 5) Ascites Assessment/Plan: The abdomen CT did show marked hepatomegaly and small amt of ascites Plan: GI follow-up after discharge will likely be recommended 6) Anemia, macrocytic Assessment/Plan: Hgb 10.9, MCV 109. This is consistent with his heavy alcohol and We checked B12/Folate levels and they were normal 7) H/o ETOH abuse Assessment/Plan: The patient described to me that he would drink 1/5 of vodka a day and 212 ounce beers per day for the last 1 year. It started when he got . Pt quit ETOH 12 days ago and said his DTs were mild; he plans to stay off ETOH His adm serum ETOH was<5, and MUDS was neg. Plan: He received 1 bag of banana bag in the ER. We advanced the diet, and have started him on oral thiamine and oral daily vitamins SW to see to provider other resources 8) GERD/Gastritis Assessment/Plan: Plan: continue home medications: PPI 9) Bacteriuria Assessment/Plan: Patient did describe urinary frequency but denied any other symptoms such as dysuria. U/A was abn with +Nitrite, +LE, +WBC. He did have tachycardia and leukocytosis with WBC 24 He was started on empiric IV antibiotic Ceftriaxone The urine culture result showed normal skin david Plan: Will stop the empiric iv Ceftriaxone 10) Hyponatremia Assessment/Plan: Adm Na 134 This is most likely d/t N/V/D Plan: Will continue to supplement iv NS, tapering down as diet is advanced Follow BMP daily 11) H/o Depression Assessment/Plan: -supportive care -consider counseling or Psych consult (12) V-tach Assessment/Plan: Patient presented with atrial tachycardia, rate 110. It was felt to be due to dehydration. On 07/02, the patient went into SVT at a rate of 170 that deteriorated into wide- complex monomorphic tachycardia consistent with V. tach. It was non-sustained . He was asymptomatic, and BP was stable. Stat calcium, magnesium, potassium and troponin were done and were normal EKG was done that showed no ischemic changes An Echo was done yesterday 07/02 and it showed a normal LV (no evidence of alcoholic cardiomyopathy), which I reported to the pt This SVT and non-sustained VT are very likely due to his severe potassium depletion and low calcium and low magnesium His TFTs were done this morning and show a normal TSH and mildly elevated T4. Plan: Remain on telemetry If there is recurrence of SVT or VT, a B-chino would be treatment of choice - Current Meds Current Meds: Current Medications Generic Name Dose Route Start Last Admin Trade Name Ahsanq PRN Reason Stop Dose Admin Calcium Carbonate/Glycine 500 mg 07/02/22 22:00 07/03/22 05:35 Calcium Carbonate Chew 500 Mg Tablet PO 500 mg TID MILTON Administration Enoxaparin Sodium 40 mg 07/02/22 09:00 07/03/22 08:27 Enoxaparin 40 Mg/0.4 Ml Syringe SUBQ 40 mg DAILY MILTON Administration Sodium Chloride 1,000 mls @ 100 mls/hr 07/02/22 03:00 07/03/22 08:20 Normal Saline 0.9% IV 100 mls/hr .Q10H MILTON Administration Ceftriaxone Sodium 1 gm/ 100 mls @ 200 mls/hr 07/03/22 09:00 07/03/22 08:22 Sodium Chloride IV 200 mls/hr DAILY MILTON Administration Pantoprazole Sodium 40 mg 07/02/22 09:00 07/03/22 08:27 Pantoprazole 40 Mg Tablet PO 40 mg DAILY MILTON Administration Potassium Chloride 10 meq 07/02/22 09:00 07/03/22 08:28 Potassium Chloride 10 Meq Capsule PO 10 meq DAILY MILTON Administration Multivit/Folic Acid/Iron 1 tab 07/02/22 12:00 07/03/22 08:27 Vitamin Tablet PO 1 tab DAILYWM MILTON Administration Sodium Chloride 10 ml 07/02/22 09:00 07/03/22 08:28 Sodium Chloride Flush 0.9% 10 Ml Syringe IVP 10 ml 0100,0900,1700 MILTON Administration Thiamine HCl 100 mg 07/02/22 09:00 07/03/22 08:27 Thiamine 100 Mg Tablet PO 100 mg DAILY MILTON Administration - Lab Result Fish Bone Diagrams: 07/03/22 05:31 07/03/22 05:31 - Additional Planning My Orders: My Active Orders 07/02/22 09:00 Thiamine [Vitamin B-1] 100 mg PO DAILY 07/02/22 10:23 Telemetry- [RC] Q4HR 07/02/22 12:00 Vitamin [Trinatal Rx 1] 1 tab PO DAILYWM 07/02/22 17:25 Miscellaenous Nursing Order [RC] QSHIFT 07/02/22 22:00 Calcium Carbonate [Tums] 500 mg PO TID 07/03/22 Breakfast DIET [Regular Diet] [DIET] 07/04/22 05:00 BMP - BASIC METABOLIC PANEL [CHEM] DAILYLAB 07/05/22 05:00 BMP - BASIC METABOLIC PANEL [CHEM] DAILYLAB Subjective - Subjective Patient Reports: Resting Comfortably, No Complaints Objective Vital Signs: Vital Signs - 24 hr 07/02/22 07/02/22 07/02/22 10:44 16:34 20:21 Temperature 37.0 C 36.9 C Heart Rate [ 109 H 103 H 99 Brachial] Respiratory 20 20 20 Rate Blood Pressure 129/78 128/80 [Left Brachial artery] O2 Saturation 97 93 93 07/03/22 07/03/22 07/03/22 00:23 05:32 08:17 Temperature 37.5 C 37.6 C 36.6 C Heart Rate [ 107 H 107 H 102 H Brachial] Respiratory 18 18 18 Rate Blood Pressure 125/80 122/69 104/54 L [Left Brachial artery] O2 Saturation 95 93 92 Oxygen O2 Source Room air Oxygen Flow Rate 2 I&O (Last 24 Hrs): Intake and Output Totals x24h 07/01/22 07/02/22 07/03/22 23:59 23:59 23:59 Intake Total 7933.867 6.667 Balance 7933.867 6.667 General: Alert, Oriented x3 HEENT: Mucous membr. moist/pink, Other (icteric sclerae) Neck: Supple, No JVD Neuro: Alert, Non Focal, Other (No nystagmus, no asterixis) Cardiovascular: Regular rate Respiratory: No respiratory distress Abdomen: Normal bowel sounds, No tenderness, Other (distended) Extremities: No clubbing, No edema - Results Results: Laboratory Results WBC 17.4 x10^3/uL (4.8-10.8) H 07/03/22 05:31 RBC 2.43 10^6/uL (4.70-6.10) L 07/03/22 05:31 Hgb 9.4 g/dL (14.0-18.0) L 07/03/22 05:31 Hct 27.1 % (42.0-52.0) L 07/03/22 05:31 MCV 111.5 fL (80.0-94.0) H 07/03/22 05:31 MCH 38.7 pg (27.0-31.0) H 07/03/22 05:31 MCHC 34.7 g/dL (32.0-36.0) 07/03/22 05:31 RDW 23.3 % (12.0-15.0) H 07/03/22 05:31 Plt Count 255 10^3/uL (130-450) 07/03/22 05:31 MPV 11.3 fL (7.4-11.4) 07/03/22 05:31 Neut # (Auto) 13.7 10^3/uL (1.5-6.6) H 07/03/22 05:31 Lymph # (Auto) 1.8 10^3/uL (1.5-3.5) 07/03/22 05:31 [place] # (Auto) 1.5 10^3/uL (0.0-1.0) H 07/03/22 05:31 Eos # (Auto) 0.2 10^3/uL (0.0-0.7) 07/03/22 05:31 Baso # (Auto) 0.1 10^3/uL (0.0-0.1) 07/03/22 05:31 Absolute Nucleated RBC 0.00 x10^3/uL 07/03/22 05:31 Total Counted 100 07/01/22 22:00 Band Neuts % (Manual) 7 % (0-10) 07/01/22 22:00 Abnorm Lymph % (Manual) 0 % 07/01/22 22:00 Nucleated RBC % 0.0 /100WBC 07/03/22 05:31 Neutrophils # (Manual) 18.2 10^3/uL (1.5-6.6) H 07/01/22 22:00 Lymphocytes # (Manual) 2.6 10^3/uL (1.5-3.5) 07/01/22 22:00 Monocytes # (Manual) 2.9 10^3/uL (0.0-1.0) H 07/01/22 22:00 Eosinophils # (Manual) 0.2 10^3/uL (0-0.7) 07/01/22 22:00 Basophils # (Manual) 0.0 10^3/uL (0-0.1) 07/01/22 22:00 Differential Comment MANUAL DIFFERENTIAL 07/01/22 22:00 Manual Slide Review Indicated 07/02/22 08:19 WBC Morphology NORMAL APPEARANCE (NORMAL) 07/01/22 22:00 Platelet Estimate NORMAL (130-450,000) (NORMAL) 07/01/22 22:00 Platelet Morphology NORMAL APPEARANCE (NORMAL) 07/01/22 22:00 RBC Morph Micro Appear 2+ TARGET CELLS (NORMAL) 2+ STOMATOCYTES (NORMAL) 2+ HYPOCHROMASIA (NORMAL) 1+ POLYCHROMASIA (NORMAL) 1+ MACROCYTOSIS (NORMAL) 07/03/22 05:31 RBC Morph Micro Appear 2+ TARGET CELLS (NORMAL) 2+ STOMATOCYTES (NORMAL) 2+ HYPOCHROMASIA (NORMAL) 1+ POLYCHROMASIA (NORMAL) 1+ MACROCYTOSIS (NORMAL) 07/03/22 05:31 RBC Morph Micro Appear 2+ TARGET CELLS (NORMAL) 2+ STOMATOCYTES (NORMAL) 2+ HYPOCHROMASIA (NORMAL) 1+ POLYCHROMASIA (NORMAL) 1+ MACROCYTOSIS (NORMAL) 07/03/22 05:31 RBC Morph Micro Appear 2+ TARGET CELLS (NORMAL) 2+ STOMATOCYTES (NORMAL) 2+ HYPOCHROMASIA (NORMAL) 1+ POLYCHROMASIA (NORMAL) 1+ MACROCYTOSIS (NORMAL) 07/03/22 05:31 RBC Morph Micro Appear 2+ TARGET CELLS (NORMAL) 2+ STOMATOCYTES (NORMAL) 2+ HYPOCHROMASIA (NORMAL) 1+ POLYCHROMASIA (NORMAL) 1+ MACROCYTOSIS (NORMAL) 07/03/22 05:31 VBG pH 7.547 (7.31-7.41) H 07/01/22 23:44 Ionized Calcium 0.72 mmol/L (1.15-1.33) L* 07/01/22 23:44 Sodium 137 mmol/L (135-145) 07/03/22 05:31 Potassium 2.9 mmol/L (3.5-5.0) L 07/03/22 05:31 Chloride 102 mmol/L (101-111) 07/03/22 05:31 Carbon Dioxide 25 mmol/L (21-32) 07/03/22 05:31 Anion Gap 10.0 (6-13) 07/03/22 05:31 BUN < 5 mg/dL (6-20) L 07/03/22 05:31 Creatinine 0.4 mg/dL (0.6-1.2) L 07/03/22 05:31 Estimated GFR (MDRD) 253 (>89) 07/03/22 05:31 Glucose 107 mg/dL (70-100) H 07/03/22 05:31 Estimat Average Glucose 68 mg/dL (70-100) L 07/02/22 02:34 Hemoglobin A1c % 4.0 % (4.27-6.07) L 07/02/22 02:34 Calcium 5.7 mg/dL (8.5-10.3) L* 07/03/22 05:31 Phosphorus 3.8 mg/dL (2.5-4.6) 07/01/22 22:00 Magnesium 2.0 mg/dL (1.7-2.8) 07/02/22 13:35 Total Bilirubin 7.9 mg/dL (0.2-1.0) H 07/02/22 08:19 AST 116 IU/L (10-42) H 07/02/22 08:19 ALT 49 IU/L (10-60) 07/02/22 08:19 Alkaline Phosphatase 121 IU/L (42-121) 07/02/22 08:19 Total Creatine Kinase 95 IU/L (22-269) 07/01/22 22:00 Troponin I High Sens 12.0 ng/L (2.3-19.7) 07/02/22 15:18 Total Protein 5.7 g/dL (6.7-8.2) L 07/02/22 08:19 Albumin 2.2 g/dL (3.2-5.5) L 07/02/22 08:19 Globulin 3.5 g/dL (2.1-4.2) 07/02/22 08:19 Albumin/Globulin Ratio 0.6 (1.0-2.2) L 07/02/22 08:19 Vitamin B12 752 pg/mL (180-914) 07/02/22 02:34 Folate 33.00 ng/mL (5.90 - >24.8) 07/02/22 02:34 TSH 3.26 uIU/mL (0.34-5.60) 07/03/22 05:31 Free T4 1.73 ng/dL (0.58-1.64) H 07/03/22 05:31 Urine Color DARK YELLOW 07/02/22 00:48 Urine Clarity CLEAR (CLEAR) 07/02/22 00:48 Urine pH 6.5 PH (5.0-7.5) 07/02/22 00:48 Ur Specific [place] 1.020 (1.002-1.030) 07/02/22 00:48 Urine Protein 30 mg/dL (NEGATIVE) H 07/02/22 00:48 Urine Glucose (UA) NEGATIVE mg/dL (NEGATIVE) 07/02/22 00:48 Urine Ketones TRACE mg/dL (NEGATIVE) 07/02/22 00:48 Urine Occult Blood NEGATIVE (NEGATIVE) 07/02/22 00:48 Urine Nitrite POSITIVE (NEGATIVE) H 07/02/22 00:48 Urine Bilirubin LARGE (NEGATIVE) H 07/02/22 00:48 Urine Urobilinogen 4 E.U./dL (NORMAL) H 07/02/22 00:48 Ur Leukocyte Esterase TRACE (NEGATIVE) H 07/02/22 00:48 Urine RBC 0-5 /HPF (0-5) 07/02/22 00:48 Urine WBC 4-5 /HPF (0-3) 07/02/22 00:48 Ur Squamous Epith Cells RARE Squamous (<= Few) 07/02/22 00:48 Urine Bacteria Rare /HPF (None Seen) 07/02/22 00:48 Urine Mucus Few Strands 07/02/22 00:48 Ur Microscopic Review INDICATED 07/02/22 00:48 Urine Culture Comments INDICATED 07/02/22 00:48 Urine Opiates Screen NEGATIVE (NEGATIVE) 07/02/22 00:48 Ur Oxycodone Screen NEGATIVE (NEGATIVE) 07/02/22 00:48 Urine Methadone Screen NEGATIVE (NEGATIVE) 07/02/22 00:48 Ur Propoxyphene Screen NEGATIVE (NEGATIVE) 07/02/22 00:48 Ur Barbiturates Screen NEGATIVE (NEGATIVE) 07/02/22 00:48 Ur Tricyclics Screen NEGATIVE (NEGATIVE) 07/02/22 00:48 Ur Phencyclidine Scrn NEGATIVE (NEGATIVE) 07/02/22 00:48 Ur Amphetamine Screen NEGATIVE (NEGATIVE) 07/02/22 00:48 U Methamphetamines Scrn NEGATIVE (NEGATIVE) 07/02/22 00:48 U Benzodiazepines Scrn NEGATIVE (NEGATIVE) 07/02/22 00:48 Urine Cocaine Screen NEGATIVE (NEGATIVE) 07/02/22 00:48 U Cannabinoids Screen NEGATIVE (NEGATIVE) 07/02/22 00:48 Ethyl Alcohol < 5.0 mg/dL 07/01/22 22:00 - Procedures Procedures: Procedures CLOSURE SKIN & SUBCUTANEOUS NEC (11/17/12)
[2022-07-03] MEDS ORDERED: cefTRIAXone 1 GM in SODIUM CHLORIDE 0.9% MINIBAG 100 ML IV SCH (09:00)
[2022-07-03] MEDS: CALCIUM GLUCONATE IN NS 0.9% 2,000 MG/100 ML BAG IV ONE ×2 (09:17→09:38)
[2022-07-03] MEDS ORDERED: CALCIUM GLUCONATE IN NS 0.9% 2,000 MG/100 ML BAG IV ONE (10:00)
[2022-07-03] MEDS: POTASSIUM CHLOR 10 MEQ/100 ML 10 MEQ/100 ML BAG IV SCH ×8 (10:34→21:36)
[2022-07-03] MEDS ORDERED: POTASSIUM CHLORIDE 10 MEQ CAPSULE PO ONE (12:00)
[2022-07-03 13:11] LABS: ALBUMIN 1.9 g/dL (3.2-5.5); BILIRUBIN,DIRECT 3.4 mg/dL (0.1-0.5); BILIRUBIN,TOTAL 6.5 mg/dL (0.2-1.0); TOTAL PROTEIN 5.1 g/dL (6.7-8.2)
[2022-07-04] MEDS: SODIUM CHLORIDE 0.9% 1,000 ML IV SCH (04:59)
[2022-07-04] MEDS: CALCIUM CARBONATE CHEW 500 MG TABLET PO SCH (05:00)
[2022-07-04 05:54] LABS: ALKALINE PHOSPHATASE 128 IU/L (42-121); ALT ALANINE AMINOTRANSFERASE 47 IU/L (10-60); AST ASPARTATE AMINOTRANSFERASE 110 IU/L (10-42); BILIRUBIN,DIRECT 3.4 mg/dL (0.1-0.5); BILIRUBIN,TOTAL 6.1 mg/dL (0.2-1.0); BUN - BLOOD UREA NITROGEN < 5 mg/dL (6-20); CARBON DIOXIDE - CO2 24 mmol/L (21-32); CHLORIDE 105 mmol/L (101-111); CREATININE 0.4 mg/dL (0.6-1.2); GFR - MDRD 253 (>89); GLUCOSE 113 mg/dL (70-100); POTASSIUM 3.5 mmol/L (3.5-5.0); SODIUM 137 mmol/L (135-145); TOTAL PROTEIN 5.4 g/dL (6.7-8.2)
[2022-07-04 05:58] LABS: CALCIUM 6.2 mg/dL (8.5-10.3)
--- NOTE | 2022-07-04 07:52 | Discharge Plan ---
Discharge Plan Problem Reviewed?: Yes Disposition: Home, Self Care Condition: Stable Prescriptions: Magnesium Oxide [Mag Ox] 400 mg PO DAILY #7 tablet Multivit-Min/Iron/Folic Acid/K [Multi-Day Plus Minerals Tablet] 1 each PO DAILY #30 tablet Potassium Chloride 20 meq PO DAILY #20 tab Calcium Carbonate [Tums (Calcium Carbonate 500mg)] 500 mg PO DAILY #7 tab Thiamine [Vitamin B-1] 100 mg PO DAILY #30 tab Diet: Regular Activity Restrictions: Activity as Tolerated Shower Restrictions: No Driving Restrictions: No Instruction Topics: Abuse Alcohol Life After Combat, Alcoholism Impact Health Concerns: You were hospitalized to treat severely and dangerously low deficiencies of your potassium, magnesium and calcium. These were depleted probably from the time that you had heavy vodka and beer intake, and from having vomiting and diarrhea recently. We found you to have significant liver disease, yellowing of your skin, and enlarged liver from that alcohol abuse. You are being discharged home and advised to abstain from alcohol. You should be taking a multivitamin and daily thiamine vitamin, which are lack ing in people who had alcohol abuse. You should see your primary care provider (or go to a Walk-In Clinic) in the next 2-4 weeks, to see if you need these continued more than 1 month. In addition, about 1 week of extra calcium, potassium and magnesium have been prescribed for you. All new medications were electronically prescribed to your [facility] in [place]. In addition, we found that your heart rate is intermittently excessively high, even when you are not doing much activity, which could be a sign of being dehydrated. Stay well-hydrated please. You underwent an Echocardiography test here, which showed that you have a structurally normal heart. Please see your primary care provider (or go to a Walk-In Clinic), if you have palpitations or lightheadedness, since you would need more evaluation of your heart. Plan of Treatment: As above. Please reach out for assistance in abstaining from alcohol, if you need help. Care Goals: Improvement in symptoms and stabilization are the goals. Assessment: The patient understands and is agreeable with the plan. No Smoking: If you smoke, Please STOP! Call for help.
[2022-07-04 08:50] VITALS: BP 133/89
[2022-07-04] MEDS: PRENATAL VITAMIN TABLET PO SCH (08:52)
[2022-07-04] MEDS: PANTOPRAZOLE 40 MG TABLET PO SCH (08:52)
[2022-07-04] MEDS: THIAMINE 100 MG TABLET PO SCH (08:53)
[2022-07-04] MEDS: ENOXAPARIN 40 MG/0.4 ML SYRINGE SUBQ SCH (08:53)
[2022-07-04] MEDS: SODIUM CHLORIDE FLUSH 0.9% 10 ML SYRINGE IVP SCH (08:53)
[2022-07-04] MEDS ORDERED: POTASSIUM CHLORIDE 10 MEQ CAPSULE PO SCH (09:00)
--- NOTE | 2022-07-04 09:08 | DISCHARGE SUMMARY ---
Discharge Summary Admit Date: 07/02/22 Discharge Date: 07/04/22 Discharging Provider: Dr Emilia Bailon Primary Care Provider: None Code Status: Attempt Resuscitation Condition at Discharge: Stable Discharge Disposition: 01 Home, Self Care - HPI History of Present Illness: 31 yo WM with h/o ETOH abuse (he drank 1/5 of vodka a day and 212 ounce beers a day for the past year), GERD/Gastritis presented to the ER for c/o abnormal labs. Pt quit ETOH 12 days ago, cold turkey. He went through withdrawals at home, including Nausea/vomiting x 4-5 days, intermittent loose stools x 10 days, tea-colored urine, yellow skin x 1 week. No sick contacts. No travel. No unusual foods. Pt went to W/I clinic d/t symptoms, had labs done, then was called yesterday by clinic physician b/c of abnormal lab results and told to go to the ER. Pt's nausea has resolved. He still has loose stools about 3x/day: light brown stool. No abdo pain, no dysuria, no Ffever or chills, no CP/SOB, no cough. In the ER, HR 121, WBC 24, Hgb 10.9, MCV 109.4, Na 134, K 2.3, Glc 139, Ca 6.0, Mg 1.6, Bili 9.3, AST 134, ETOH level <5, U/A: +Nitrite, +LE, +WBC, UDS neg. CT Abdo: done; results pending. Pt was given O2, IVF, Thiamine, Folate, MVI, MagSO4, KCl, Rocephin/Flagyl in the ER. He is being admitted for severe electrolyte abn, tachycardia. - HOSPITAL COURSE Hospital Course: 1) Hypokalemia Serum K remained<3 despite aggressive iv and po replacement, likely due to poor nutrition from severe alcoholism plus losses in recent nausea and vomiting. He needed many iv K Riders and we gave oral potassium and he was discharged with daily oral KCl 20 mEq. His Potassium on day of discharge was 3.5. 2) Hypocalcemia Admission Ca was 6.0, but he had a low Alb of 2.2. He did get iv Calcium and o ral TUMS. Daily TUMS was prescribed at discharge. Ca on day of discharge was 6.2, with Alb 2.0. 3) Hypomagnesemia Adm Mg was 1.6, likely due to poor nutrition plus losses in nausea and vomiting. He required IV and oral magnesium replacement and was discharged on oral daily magnesium. Mg on the day of discharge was 1.5. 4) V-tach Patient presented with sinus tachycardia, rate 110. It was felt to be due to dehydration. On 07/02, the patient went into SVT at a rate of 170 that deteriorated into wide-complex monomorphic tachycardia consistent with V. tach. It was non-sustained. He was asymptomatic, and BP was stable. STAT calcium, magnesium, potassium and troponin were checked. His troponins were normal. EKG was done that showed no ischemic changes and an Echo was done that showed a normal LV (no evidence of alcoholic cardiomyopathy). His TFTs were done and show a normal TSH and mildly elevated T4. The SVT and non-sustained VT were very likely due to his severe potassium depletion and low calcium and low magnesium. There was no recurrence of SVT or VT. 4) Elevated LFTs Bilirubin was was 9.3. He also has elevated AST/ALT of 134/54. CT abdomen was done and showed enlarged liver, gallbladder contracted and had no stones. At [facility], bili was 6.1 5) Ascites The abdomen CT did show marked hepatomegaly and small amt of ascites. He was told to expect possibly slow improvement of his hepatomegaly and abdominal distention and icterus over many months. If necessary he may need GI follow-up after discharge. 6) Anemia, macrocytic Hgb was 10.9, MCV 109, consistent with his heavy alcohol use. We checked B12 & Folate levels and they were normal. 7) H/o ETOH abuse The patient described that he would drink 1/5 of vodka a day and two 12 ounce beers per day for the last 1 year. His alcohol intake increased when he got . Then the patient decided to quit cold turkey 12 days before admission and said his DT shakes were mild but his N/V were severe and lasted 4 days. He plans to stay off ETOH. His admission serum ETOH was<5, and MUDS was neg. He received 1 bag of banana bag in the ER. We advanced his diet, and started oral t hiamine and oral daily vitamins, which were continued at discharge. 8) GERD/Gastritis We continued a PPI 9) Bacteriuria Patient did describe urinary frequency but denied any other symptoms such as dysuria. U/A was abn with +Nitrite, +LE, +WBC. He did have tachycardia and leukocytosis with WBC 24. He was started on empiric IV antibiotic Ceftriaxone. The urine culture result showed normal skin david. The Ceftriaxone was stopped. 10) Hyponatremia Adm Na 134 most likely from N/V/D. He was on saline briefly. Na at [facility] was 137. 11) H/o Depression Please consider counseling or Psych - ALLERGIES Allergies/Adverse Reactions: Allergies Allergy/AdvReac Type Severity Reaction Status Date / Time No Known Drug Allergies Allergy Verified 07/01/22 21:32 - MEDICATIONS Home Medications: Ambulatory Orders Medication Instructions Recorded Confirmed Omeprazole Magnesium 1 cap PO DAILY 07/02/22 07/02/22 Calcium Carbonate [Tums (Calcium 500 mg PO DAILY #7 tab 07/04/22 Carbonate 500mg)] Magnesium Oxide [Mag Ox] 400 mg PO DAILY #7 tablet 07/04/22 Multivit-Min/Iron/Folic Acid/K 1 each PO DAILY #30 tablet 07/04/22 [Multi-Day Plus Minerals Tablet] Potassium Chloride 20 meq PO DAILY #20 tab 07/04/22 Thiamine [Vitamin B-1] 100 mg PO DAILY #30 tab 07/04/22 - PHYSICAL EXAM AT DISCHARGE General Appearance: positive: No acute distress, Alert Eyes Bilateral: positive: EOMI, Other (Sclerae icteric) ENT: positive: ENT inspection nml, No signs of dehydration, Other (Good dentition, well groomed) Neck: positive: Nml inspection, No JVD Respiratory: positive: No respiratory distress, Breath sounds nml Cardiovascular: positive: Regular rate & rhythm, No murmur Abdomen: positive: Non-tender, Other (Distended moderately) Skin: positive: Warm, Dry, Other (Icteric) Extremities: positive: Non-tender, No pedal edema Neurologic/Psychiatric: positive: Oriented x3, Motor nml - LABS Result Diagrams: 07/03/22 05:31 07/04/22 05:19 - DIAGNOSTIC IMAGING Diagnostic Imaging Results: Final report reviewed - FOLLOW UP Follow Up: Establish with a PCP and office visit advised in 1-3 weeks. - TIME SPENT Time Spent in Discharge (Minutes): 45
== END 2022-07-04 09:38 | disposition home or self-care (01) | DRG 641 ==
LOC: ED 21:24 → MS2 07-02 02:56
PROVIDERS: ADMIT Internal Medicine; ATTEND Internal Medicine
DX: E87.6 Hypokalemia (principal); R18.8 Other ascites; I47.1 Supraventricular tachycardia; R17 Unspecified jaundice; K21.9 Gastro-esophageal reflux disease without esophagitis; K29.70 Gastritis, unspecified, without bleeding; Y90.0 Blood alcohol level of less than 20 mg/100 ml; E83.51 Hypocalcemia; E83.42 Hypomagnesemia; D53.9 Nutritional anemia, unspecified; R82.71 Bacteriuria; E87.1 Hypo-osmolality and hyponatremia; F10.11 Alcohol abuse, in remission; F32.A Depression, unspecified; E80.6 Other disorders of bilirubin metabolism; F17.200 Nicotine dependence, unspecified, uncomplicated; M54.59 Other low back pain; R16.0 Hepatomegaly, not elsewhere classified; R19.5 Other fecal abnormalities; R74.01 Elevation of levels of liver transaminase levels; Z63.5 Disruption of family by separation and divorce; Z79.899 Other long term (current) drug therapy
CPT/HCPCS: 36415; 74177; 80048; 80053; 80076; 80306; 80320; 81001; 82310; 82330; 82550; 82607; 82746; 83036; 83690; 83735; 84100; 84132; 84439; 84443; 84484; 85025; 85610; 87040; 87086; 93005; 93306; 96365; 96366; 96368; 96375; 99285; A9270; J1650; J3411; Q9967; 81003; 82747; 85014

== ENCOUNTER 2022-07-16 09:55 | Outpatient (CLI) | payer MEDICAID ==
[2022-07-16 15:04] LABS: CALCIUM 8.8 mg/dL (8.5-10.3); CREATININE 0.5 mg/dL (0.6-1.2); MAGNESIUM 1.7 mg/dL (1.7-2.8); POTASSIUM 4.1 mmol/L (3.5-5.0)
== END 2022-07-16 09:56 | disposition home or self-care (01) ==
LOC: LAB.S 09:55
PROVIDERS: ATTEND Nurse Practitioner Acute Care
DX: E87.6 Hypokalemia (principal); E83.51 Hypocalcemia; Z13.1 Encounter for screening for diabetes mellitus; E83.42 Hypomagnesemia
CPT/HCPCS: 36415; 80048; 81599; 82330; 83036; 83735

== ENCOUNTER 2022-07-30 18:42 | Emergency (ER) | payer MEDICAID ==
[2022-07-30] MEDS ORDERED: OLANZapine 10 MG VIAL IM STA (18:52)
--- NOTE | 2022-07-30 19:00 | ED Physician Documentation ---
PD HPI MHE - Stated complaint Stated Complaint: MHE - Chief complaint Chief Complaint: MHE - History obtained from History obtained from: Patient, EMS - History of Present Illness Primary symptom: Suicidal ideation Contributing factors: Substance abuse - ETOH Recently seen: Not recently seen PD PAST MEDICAL HISTORY - Past Medical History Cardiovascular: Other (Tachycardia) Respiratory: None Neuro: None Endocrine/Autoimmune: None GI: GERD : None HEENT: None Psych: Depression Musculoskeletal: None Derm: None - Past Surgical History Past Surgical History: No - Present Medications Home Medications: Ambulatory Orders Medication Instructions Recorded Confirmed Omeprazole Magnesium 1 cap PO DAILY 07/02/22 07/02/22 Calcium Carbonate [Tums (Calcium 500 mg PO DAILY #7 tab 07/04/22 Carbonate 500mg)] Magnesium Oxide [Mag Ox] 400 mg PO DAILY #7 tablet 07/04/22 Multivit-Min/Iron/Folic Acid/K 1 each PO DAILY #30 tablet 07/04/22 [Multi-Day Plus Minerals Tablet] Potassium Chloride 20 meq PO DAILY #20 tab 07/04/22 Thiamine [Vitamin B-1] 100 mg PO DAILY #30 tab 07/04/22 - Allergies Allergies/Adverse Reactions: Allergies Allergy/AdvReac Type Severity Reaction Status Date / Time No Known Drug Allergies Allergy Verified 07/30/22 18:56 - Social History Does the pt smoke?: Yes Smoking Status: Current every day smoker Does the pt drink ETOH?: Yes Does the pt have substance abuse?: Yes - Immunizations Immunizations are current?: Yes - POLST Patient has POLST: No Results - Vitals Vitals: Vital Signs - 24 hr 07/30/22 18:50 Temperature 36.9 C Heart Rate 141 H Respiratory 20 Rate Blood Pressure 199/108 H O2 Saturation 98 Oxygen O2 Source Room air
--- NOTE | 2022-07-30 19:04 | ED Physician Documentation ---
PD HPI MHE - Stated complaint Stated Complaint: MHE - Chief complaint Chief Complaint: MHE - History obtained from History obtained from: Patient, Police - History of Present Illness Pain level max: 0 Pain level now: 0 - Additional information Additional information: Patient is a 31-year-old male who reportedly had called the crisis line earlier today to talk about feeling depressed and potentially suicidal. He states that he has been drinking alcohol today. He states that he has not attempted to harm himself. Denies taking any medication that would harm him. He states that he did tell the crisis line that if he was going to kill himself, he would take an overdose of aspirin. The crisis line contacted the police who went to his home. He reportedly met the police outside. He allegedly told the police that he would fight them all the way to the emergency department. He was placed in handcuffs and restraints and brought here. He is placed into an ER stretcher on restraints by police. The patient states that he is not actively suicidal at this time. He is not having any auditory or visual hallucinations. He states he has been drinking alcohol for the past several days and has not ate or drink much else. He was hospitalized recently for electrolyte abnormalities. Review of Systems Constitutional: denies: Fever, Chills Respiratory: denies: Cough GI: denies: Nausea, Vomiting, Diarrhea Skin: denies: Rash Musculoskeletal: denies: Neck pain, Back pain Neurologic: denies: Headache PD PAST MEDICAL HISTORY - Past Medical History Cardiovascular: Other (Tachycardia) Respiratory: None Neuro: None Endocrine/Autoimmune: None GI: GERD : None HEENT: None Psych: Depression Musculoskeletal: None Derm: None - Past Surgical History Past Surgical History: No - Present Medications Home Medications: Ambulatory Orders Medication Instructions Recorded Confirmed Omeprazole Magnesium 1 cap PO DAILY 07/02/22 07/02/22 Calcium Carbonate [Tums (Calcium 500 mg PO DAILY #7 tab 07/04/22 Carbonate 500mg)] Magnesium Oxide [Mag Ox] 400 mg PO DAILY #7 tablet 07/04/22 Multivit-Min/Iron/Folic Acid/K 1 each PO DAILY #30 tablet 07/04/22 [Multi-Day Plus Minerals Tablet] Potassium Chloride 20 meq PO DAILY #20 tab 07/04/22 Thiamine [Vitamin B-1] 100 mg PO DAILY #30 tab 07/04/22 - Allergies Allergies/Adverse Reactions: Allergies Allergy/AdvReac Type Severity Reaction Status Date / Time No Known Drug Allergies Allergy Verified 07/30/22 18:56 - Social History Does the pt smoke?: Yes Smoking Status: Current every day smoker Does the pt drink ETOH?: Yes Does the pt have substance abuse?: Yes - Immunizations Immunizations are current?: Yes - POLST Patient has POLST: No PD ED PE NORMAL - Vitals Vital signs reviewed: Yes - General General: Alert and oriented X 3, Other (Patient is agitated.) - HEENT HEENT: PERRL, Moist mucous membranes - Neck Neck: Supple, no meningeal sign - Cardiac Cardiac: RRR, Strong equal pulses - Respiratory Respiratory: No respiratory distress, Clear bilaterally - Abdomen Abdomen: Soft, Non tender, Non distended - Back Back: No spinal TTP - Derm Derm: Warm and dry, No rash - Extremities Extremities: No edema, No calf tenderness / cord - Neuro Neuro: Alert and oriented X 3, 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, No motor deficit, No sensory deficit, Normal speech Eye Opening: Spontaneous Motor: Obeys Commands Verbal: Oriented GCS Score: 15 - Psych Psych: Normal mood, Normal affect Results - Vitals Vitals: Vital Signs - 24 hr 07/30/22 18:50 Temperature 36.9 C Heart Rate 141 H Respiratory 20 Rate Blood Pressure 199/108 H O2 Saturation 98 Oxygen O2 Source Room air - Labs Labs: Laboratory Tests 07/30/22 07/30/22 07/30/22 19:35 19:35 19:35 WBC 24.3 H RBC 4.52 L Hgb 15.3 Hct 46.0 MCV 101.8 H MCH 33.8 H MCHC 33.3 RDW 15.4 H Plt Count 360 MPV 10.7 Neut # (Auto) 20.4 H Lymph # (Auto) 2.7 [place] # (Auto) 0.9 Eos # (Auto) 0.0 Baso # (Auto) 0.1 Absolute Nucleated RBC 0.00 Band Neuts % (Manual) Not Reportable Abnorm Lymph % (Manual) Not Reportable Nucleated RBC % 0.0 Neutrophils # (Manual) Not Reportable Lymphocytes # (Manual) Not Reportable Monocytes # (Manual) Not Reportable Eosinophils # (Manual) Not Reportable Basophils # (Manual) Not Reportable Differential Comment MANUAL=AUTO DIFF Manual Slide Review Indicated Platelet Estimate NORMAL (130-450,000) Platelet Morphology NORMAL APPEARANCE RBC Morph Micro Appear NORMAL APPEARANCE VBG pH Ionized Calcium Sodium 134 L Potassium 2.7 L Chloride 95 L Carbon Dioxide 18 L Anion Gap 21.0 H BUN < 5 L Creatinine 0.7 Estimated GFR (MDRD) 132 Glucose 142 H Calcium 8.7 Phosphorus 3.8 Magnesium 1.6 L Total Bilirubin 2.2 H AST 119 H ALT 44 Alkaline Phosphatase 305 H Total Protein 8.3 H Albumin 3.2 Globulin 5.1 H Albumin/Globulin Ratio 0.6 L Lipase 49 TSH 1.36 Urine Color Urine Clarity Urine pH Ur Specific [place] Urine Protein Urine Glucose (UA) Urine Ketones Urine Occult Blood Urine Nitrite Urine Bilirubin Urine Urobilinogen Ur Leukocyte Esterase Ur Microscopic Review Urine Culture Comments Salicylates < 6.0 Urine Opiates Screen Ur Oxycodone Screen Urine Methadone Screen Ur Propoxyphene Screen Acetaminophen < 10 L Ur Barbiturates Screen Ur Tricyclics Screen Ur Phencyclidine Scrn Ur Amphetamine Screen U Methamphetamines Scrn U Benzodiazepines Scrn Urine Cocaine Screen U Cannabinoids Screen Ethyl Alcohol 304.6 SARS-CoV-2 (PCR) 07/30/22 07/30/22 07/30/22 19:37 20:55 22:29 WBC RBC Hgb Hct MCV MCH MCHC RDW Plt Count MPV Neut # (Auto) Lymph # (Auto) [place] # (Auto) Eos # (Auto) Baso # (Auto) Absolute Nucleated RBC Band Neuts % (Manual) Abnorm Lymph % (Manual) Nucleated RBC % Neutrophils # (Manual) Lymphocytes # (Manual) Monocytes # (Manual) Eosinophils # (Manual) Basophils # (Manual) Differential Comment Manual Slide Review Platelet Estimate Platelet Morphology RBC Morph Micro Appear VBG pH 7.436 H Ionized Calcium 1.05 L Sodium Potassium Chloride Carbon Dioxide Anion Gap BUN Creatinine Estimated GFR (MDRD) Glucose Calcium Phosphorus Magnesium Total Bilirubin AST ALT Alkaline Phosphatase Total Protein Albumin Globulin Albumin/Globulin Ratio Lipase TSH Urine Color YELLOW Urine Clarity CLEAR Urine pH 6.0 Ur Specific [place] <=1.005 Urine Protein NEGATIVE Urine Glucose (UA) NEGATIVE Urine Ketones NEGATIVE Urine Occult Blood NEGATIVE Urine Nitrite NEGATIVE Urine Bilirubin NEGATIVE Urine Urobilinogen 0.2 (NORMAL) Ur Leukocyte Esterase NEGATIVE Ur Microscopic Review NOT INDICATED Urine Culture Comments NOT INDICATED Salicylates Urine Opiates Screen NEGATIVE Ur Oxycodone Screen NEGATIVE Urine Methadone Screen NEGATIVE Ur Propoxyphene Screen NEGATIVE Acetaminophen Ur Barbiturates Screen NEGATIVE Ur Tricyclics Screen NEGATIVE Ur Phencyclidine Scrn NEGATIVE Ur Amphetamine Screen NEGATIVE U Methamphetamines Scrn NEGATIVE U Benzodiazepines Scrn NEGATIVE Urine Cocaine Screen NEGATIVE U Cannabinoids Screen NEGATIVE Ethyl Alcohol SARS-CoV-2 (PCR) NOT DETECTED PD Medical Decision Making - ED course Complexity details: reviewed results, re-evaluated patient, considered differential, d/w patient ED course: Patient was initially placed into restraints for aggressive behavior, these were able to be quickly removed. He does have chronic leukocytosis, unclear etiology. Has macrocytosis as well, consistent with alcoholism. His ionized calcium is mildly low. Chemistry shows potassium of 2.7, mildly elevated anion gap and low magnesium. These both were replaced. Given IV normal saline. Toxicology screen otherwise negative. Salicylates negative. Acetaminophen negative. Alcohol level 304. COVID is negative. Patient will be allowed to sober in the emergency department. He did willingly take Zyprexa 10 mg IM. Patient is sleeping. He was placed on an involuntary psychiatric hold by police. In the a.m. Will need to see social work versus DCR. Patient will be signed out to the [facility] emergency department physician. At one point when the patient first arrived in the emergency department, he did state that he felt like he could "kill someone and not feel anything". He is concerned that there could be a chemical imbalance in his brain. This document was made in part using voice recognition software. While efforts are made to proofread this document, sound alike and grammatical errors may occur. Departure - Departure Clinical Impression: Hypomagnesemia, Hypokalemia, Suicidal ideation Alcohol intoxication Qualifiers: Complication of substance-induced condition: uncomplicated Qualified Code(s): F10.920 - Alcohol use, unspecified with intoxication, uncomplicated Leukocytosis Qualifiers: Leukocytosis type: unspecified Qualified Code(s): D72.829 - Elevated white blood cell count, unspecified Condition: Stable
--- NOTE | 2022-07-30 19:53 | ED Physician Documentation ---
Restraint [id number] - Immediate Situation Face to Face Evaluation Date: 07/30/22 Face to Face Evaluation Time: 19:41 Restraint Classification: Violent, physical Restraint Type: Locked extremity - Patient's Reaction & Behaviors Safety: Physically safe Verbal: Demanding (patient is calming down and more cooperative) Harm: Potential harm to self, Potential harm to others Physical: Aggressive behavior (calm now) Other: Resting quietly - Behavioral Condition Attitude: Guarded Behavior: Agitated (mildly) Orientation: Person, Place, Time, Situation Mood: Labile - Evaluation Review of Systems: see note Pertinent History/Illicit Drugs/Medications/Results: see note - Plan Need to Continue or Terminate Violent or Chemical Restraint: terminate restraints
[2022-07-30 19:57] LABS: BASOPHILS # (AUTO) 0.1 10^3/uL (0.0-0.1); BASOPHILS % (AUTO) 0.3 %; EOSINOPHILS % (AUTO) 0.1 %; HGB - HEMOGLOBIN 15.3 g/dL (14.0-18.0); LYMPHOCYTES # (AUTO) 2.7 10^3/uL (1.5-3.5); MEAN CORPUSCULAR HEMOGLOBIN 33.8 pg (27.0-31.0); MEAN CORPUSCULAR HGB CONC 33.3 g/dL (32.0-36.0); MEAN CORPUSCULAR VOLUME 101.8 fL (80.0-94.0); MEAN PLATELET VOLUME 10.7 fL (7.4-11.4); MONOCYTES # (AUTO) 0.9 10^3/uL (0.0-1.0); MONOCYTES % (AUTO) 3.9 %; NEUTROPHILS # (AUTO) 20.4 10^3/uL (1.5-6.6); NEUTROPHILS % (AUTO) 84.1 %; PLT - PLATELET COUNT 360 10^3/uL (130-450); RED BLOOD COUNT 4.52 10^6/uL (4.70-6.10); RED CELL DISTRIBUTION WIDTH 15.4 % (12.0-15.0); WHITE BLOOD COUNT 24.3 x10^3/uL (4.8-10.8)
[2022-07-30 19:59] LABS: SLIDE REVIEW? Indicated
[2022-07-30 20:18] LABS: DIFFERENTIAL COMMENT MANUAL=AUTO DIFF; PLATELET ESTIMATE, MANUAL NORMAL (130-450,000) (NORMAL); PLATELET MORPHOLOGY NORMAL APPEARANCE (NORMAL); RBC MORPHOLOGY (MULTIPLE) NORMAL APPEARANCE (NORMAL)
[2022-07-30 20:19] LABS: ACETAMINOPHEN < 10 ug/mL (10-30); ALBUMIN 3.2 g/dL (3.2-5.5); ALBUMIN/GLOBULIN RATIO 0.6 (1.0-2.2); ALKALINE PHOSPHATASE 305 IU/L (42-121); ALT ALANINE AMINOTRANSFERASE 44 IU/L (10-60); AST ASPARTATE AMINOTRANSFERASE 119 IU/L (10-42); BILIRUBIN,TOTAL 2.2 mg/dL (0.2-1.0); BUN - BLOOD UREA NITROGEN < 5 mg/dL (6-20); CALCIUM 8.7 mg/dL (8.5-10.3); CARBON DIOXIDE - CO2 18 mmol/L (21-32); CHLORIDE 95 mmol/L (101-111); CREATININE 0.7 mg/dL (0.6-1.2); ETOH - ETHANOL 304.6 mg/dL; GFR - MDRD 132 (>89); GLUCOSE 142 mg/dL (70-100); LIPASE 49 U/L (22-51); MAGNESIUM 1.6 mg/dL (1.7-2.8); PHOSPHORUS 3.8 mg/dL (2.5-4.6); POTASSIUM 2.7 mmol/L (3.5-5.0); SALICYLATE < 6.0 mg/dL; SODIUM 134 mmol/L (135-145); TOTAL PROTEIN 8.3 g/dL (6.7-8.2)
[2022-07-30] MEDS ORDERED: NICOTINE 14 MG PATCH TOP STA (20:33)
[2022-07-30] MEDS ORDERED: SODIUM CHLORIDE 0.9% 1,000 ML IV STA ×2 (20:34→22:40)
[2022-07-30] MEDS ORDERED: MAGNESIUM SULFATE 2 GRAM 2 GM/50 ML BAG IV ONE (20:35)
[2022-07-30 21:00] LABS: VBG PH 7.436 (7.31-7.41)
[2022-07-30 21:01] LABS: CALCIUM, IONIZED 1.05 mmol/L (1.15-1.33)
[2022-07-30] MEDS ORDERED: PANTOPRAZOLE 40 MG VIAL IVP STA (22:40)
[2022-07-30] MEDS ORDERED: POTASSIUM CHLORIDE 20 MEQ TABLET PO STA (22:40)
[2022-07-30 22:42] LABS: MUDS CUTOFF CONCENTRATIONS CUTOFF CONC BELOW:
[2022-07-30 22:44] LABS: BILIRUBIN,URINE NEGATIVE (NEGATIVE); GLUCOSE, URINE (UA) NEGATIVE (NEGATIVE); KETONES,URINE (UA) NEGATIVE (NEGATIVE); LEUKOCYTE ESTERASE, URINE NEGATIVE (NEGATIVE); NITRITE,URINE NEGATIVE (NEGATIVE); OCCULT BLOOD,URINE NEGATIVE (NEGATIVE); PROTEIN,URINE NEGATIVE (NEGATIVE); UROBILINOGEN,URINE 0.2 (NORMAL) E.U./dL (NORMAL)
[2022-07-30 22:47] LABS: CLARITY,URINE CLEAR (CLEAR)
[2022-07-30 22:55] LABS: AMPHETAMINE SCREEN,URINE NEGATIVE (NEGATIVE); BARBITURATE SCREEN,UR NEGATIVE (NEGATIVE); BENZODIAZEPINES SCREEN, URINE NEGATIVE (NEGATIVE); COCAINE SCREEN URINE NEGATIVE (NEGATIVE); METHADONE SCREEN, URINE NEGATIVE (NEGATIVE); METHAMPHETAMINES SCREEN, URINE NEGATIVE (NEGATIVE); OPIATE SCREEN, URINE NEGATIVE (NEGATIVE); OXYCODONE SCREEN, URINE NEGATIVE (NEGATIVE); PROPOXYPHENE SCREEN, URINE NEGATIVE (NEGATIVE); THC CANNABINOID SCREEN, URINE NEGATIVE (NEGATIVE); TRICYCLIC ANTIDEPRESSANT,URINE NEGATIVE (NEGATIVE)
[2022-07-31] MEDS ORDERED: ONDANSETRON ODT 4 MG TABLET TL STA (02:06)
[2022-07-31] MEDS ORDERED: LORazepam 1 MG TABLET PO STA (02:07)
[2022-07-31 07:10] LABS: ALBUMIN 2.9 g/dL (3.2-5.5); ALBUMIN/GLOBULIN RATIO 0.7 (1.0-2.2); ALKALINE PHOSPHATASE 249 IU/L (42-121); ALT ALANINE AMINOTRANSFERASE 36 IU/L (10-60); AST ASPARTATE AMINOTRANSFERASE 100 IU/L (10-42); BILIRUBIN,TOTAL 2.1 mg/dL (0.2-1.0); BUN - BLOOD UREA NITROGEN < 5 mg/dL (6-20); CARBON DIOXIDE - CO2 27 mmol/L (21-32); CHLORIDE 99 mmol/L (101-111); CREATININE 0.5 mg/dL (0.6-1.2); ETOH - ETHANOL < 5.0 mg/dL; GFR - MDRD 195 (>89); GLUCOSE 117 mg/dL (70-100); POTASSIUM 3.4 mmol/L (3.5-5.0); SODIUM 137 mmol/L (135-145); TOTAL PROTEIN 6.8 g/dL (6.7-8.2)
--- NOTE | 2022-07-31 14:02 | ED Physician Documentation ---
ED Addendum - Addendum Addendum: 07/31/22 14:00 Please see the previous providers documentation for presentation to the ER. Patient has boarded overnight in the emergency department pending sobriety. Ultimately has been seen by the oncology social work. At this time the patient is alert calm cooperative. He has no SI or HI. He has been seen by social work who has been able to safety plan with both patient and the mom. He does have a longstanding history of alcohol abuse and was sober for many months until he relapsed yesterday. He will return to his mom's house where there is no alcohol available. The [facility] officer oncology social work will check up on the patient. He is to continue follow-up with his PCP. He is discharged home in stable condition with usual emergent return precautions discussed
[2022-07-31 14:33] VITALS: BP 142/100
== END 2022-07-31 14:33 | disposition home or self-care (01) ==
LOC: ED 18:42
DX: R45.851 Suicidal ideations (principal); E83.42 Hypomagnesemia; E87.6 Hypokalemia; D72.829 Elevated white blood cell count, unspecified; F10.120 Alcohol abuse with intoxication, uncomplicated; Y90.8 Blood alcohol level of 240 mg/100 ml or more; F17.200 Nicotine dependence, unspecified, uncomplicated; Z20.822 Contact with and (suspected) exposure to COVID-19
CPT/HCPCS: 36415; 80053; 80306; 80307; 80320; 80329; 81003; 82330; 83690; 83735; 84100; 84443; 85025; 87635; 96365; 96366; 96372; 96375; 99284; A9270; J8499; Q0162; 81001; 87086

== ENCOUNTER 2022-08-25 09:21 | Outpatient (CLI) | payer MEDICAID | END 2022-08-25 09:22 | disposition critical access hospital (66) | LOC: EMS 09:21 | DX: R09.89 Other specified symptoms and signs involving the circulatory and respiratory systems (principal); R42 Dizziness and giddiness; R11.0 Nausea; R26.81 Unsteadiness on feet; F10.90 Alcohol use, unspecified, uncomplicated | CPT/HCPCS: A0425; A0429; A0999 ==

== ENCOUNTER 2022-08-25 09:46 | Inpatient (IN) | payer MEDICAID ==
[2022-08-25] MEDS ORDERED: SODIUM CHLORIDE 0.9% 1,000 ML IV STA (11:10)
[2022-08-25] MEDS ORDERED: THIAMINE INJ 100 MG in SODIUM CHLORIDE 0.9% 50 ML IV STA (11:11)
--- NOTE | 2022-08-25 11:11 | ED Physician Documentation ---
History of Present Illness - Stated complaint Stated Complaint: ETOH - Chief complaint Chief Complaint: Neuro - History obtained from History obtained from: Patient - Additonal information Additional information: 32-year-old gentleman presents by ambulance requesting help with alcohol. He is worried that if he goes into withdrawal that he may . That said he is still very intoxicated. There is no current evidence of withdrawal. He has no physical complaints. PD PAST MEDICAL HISTORY - Past Medical History Cardiovascular: Other (Tachycardia) Respiratory: None Neuro: None Endocrine/Autoimmune: None GI: GERD : None HEENT: None Psych: Depression Musculoskeletal: None Derm: None - Past Surgical History Past Surgical History: No - Present Medications Home Medications: Ambulatory Orders Medication Instructions Recorded Confirmed Omeprazole Magnesium 1 cap PO DAILY 07/02/22 07/02/22 Calcium Carbonate [Tums (Calcium 500 mg PO DAILY #7 tab 07/04/22 Carbonate 500mg)] Magnesium Oxide [Mag Ox] 400 mg PO DAILY #7 tablet 07/04/22 Multivit-Min/Iron/Folic Acid/K 1 each PO DAILY #30 tablet 07/04/22 [Multi-Day Plus Minerals Tablet] Potassium Chloride 20 meq PO DAILY #20 tab 07/04/22 Thiamine [Vitamin B-1] 100 mg PO DAILY #30 tab 07/04/22 - Allergies Allergies/Adverse Reactions: Allergies Allergy/AdvReac Type Severity Reaction Status Date / Time No Known Drug Allergies Allergy Verified 08/25/22 09:58 - Social History Does the pt smoke?: Yes Smoking Status: Current every day smoker Does the pt drink ETOH?: Yes Does the pt have substance abuse?: Yes - Immunizations Immunizations are current?: Yes - POLST Patient has POLST: No PD ED PE NORMAL - Vitals Vital signs reviewed: Yes - General General: Other (Slow slurred speech, bloodshot eyes with mild icterus) - HEENT HEENT: PERRL, EOMI (With nystagmus) - Neck Neck: Supple, no meningeal sign, No bony TTP, C-Spine cleared by NEXUS criteria - Cardiac Cardiac: RRR, No murmur - Respiratory Respiratory: No respiratory distress, Clear bilaterally - Abdomen Abdomen: Non tender - Derm Derm: No rash - Neuro Neuro: Alert and oriented X 3 Eye Opening: To Voice Motor: Obeys Commands Verbal: Oriented GCS Score: 14 Results - Vitals Vitals: Vital Signs - 24 hr 05/14/23 05/14/23 05/14/23 09:54 10:30 12:00 Temperature 36.6 C 36.7 C Heart Rate 115 H 95 97 Respiratory 18 22 18 Rate Blood Pressure 145/95 H 131/74 H 121/67 O2 Saturation 99 97 97 If not protocol 3 3 : Oxygen Flow, liters/minute 08/25/22 08/25/22 08/25/22 12:30 13:56 16:00 Temperature Heart Rate 86 119 H Respiratory 18 20 Rate Blood Pressure 125/73 127/75 O2 Saturation 85 L 100 98 If not protocol 3 : Oxygen Flow, liters/minute 08/25/22 08/25/22 18:00 20:00 Temperature 36.8 C 37.0 C Heart Rate 115 H 124 H Respiratory 18 18 Rate Blood Pressure 135/83 H 149/77 H O2 Saturation 92 96 If not protocol : Oxygen Flow, liters/minute Oxygen O2 Source Room air - Labs Labs: Laboratory Tests 08/25/22 08/25/22 08/25/22 10:41 11:20 11:20 WBC 13.3 H RBC 4.36 L Hgb 14.4 Hct 41.3 L MCV 94.7 H MCH 33.0 H MCHC 34.9 RDW 15.6 H Plt Count 46 L MPV 11.9 H Neut # (Auto) 10.9 H Lymph # (Auto) 1.3 L [place] # (Auto) 1.1 H Eos # (Auto) 0.0 Baso # (Auto) 0.1 Absolute Nucleated RBC 0.00 Nucleated RBC % 0.0 PT INR Sodium 137 Potassium 2.4 L* Chloride 93 L Carbon Dioxide 25 Anion Gap 19.0 H BUN < 5 L Creatinine 0.5 L Estimated GFR (MDRD) 194 Glucose 144 H Calcium 8.0 L Magnesium 1.3 L Total Bilirubin 2.4 H AST 320 H ALT 91 H Alkaline Phosphatase 291 H Total Protein 7.5 Albumin 3.0 L Globulin 4.5 H Albumin/Globulin Ratio 0.7 L Lipase 54 H Urine Color YELLOW Urine Clarity CLEAR Urine pH 6.5 Ur Specific [place] <=1.005 Urine Protein NEGATIVE Urine Glucose (UA) NEGATIVE Urine Ketones NEGATIVE Urine Occult Blood NEGATIVE Urine Nitrite NEGATIVE Urine Bilirubin NEGATIVE Urine Urobilinogen 0.2 (NORMAL) Ur Leukocyte Esterase NEGATIVE Ur Microscopic Review NOT INDICATED Urine Culture Comments NOT INDICATED Salicylates < 6.0 Urine Opiates Screen NEGATIVE Ur Oxycodone Screen NEGATIVE Urine Methadone Screen NEGATIVE Ur Propoxyphene Screen NEGATIVE Acetaminophen < 10 L Ur Barbiturates Screen NEGATIVE Ur Tricyclics Screen NEGATIVE Ur Phencyclidine Scrn NEGATIVE Ur Amphetamine Screen NEGATIVE U Methamphetamines Scrn NEGATIVE U Benzodiazepines Scrn NEGATIVE Urine Cocaine Screen NEGATIVE U Cannabinoids Screen NEGATIVE Ethyl Alcohol 344.0 08/25/22 08/25/22 08/25/22 12:13 14:28 17:33 WBC RBC Hgb Hct MCV MCH MCHC RDW Plt Count MPV Neut # (Auto) Lymph # (Auto) [place] # (Auto) Eos # (Auto) Baso # (Auto) Absolute Nucleated RBC Nucleated RBC % PT 15.2 H INR 1.4 H Sodium 138 137 Potassium 2.8 L 2.9 L Chloride 94 L 96 L Carbon Dioxide 26 25 Anion Gap 18.0 H 16.0 H BUN < 5 L < 5 L Creatinine 0.5 L 0.5 L Estimated GFR (MDRD) 194 194 Glucose 109 H 115 H Calcium 8.0 L 7.9 L Magnesium 1.8 1.6 L Total Bilirubin AST ALT Alkaline Phosphatase Total Protein Albumin Globulin Albumin/Globulin Ratio Lipase Urine Color Urine Clarity Urine pH Ur Specific [place] Urine Protein Urine Glucose (UA) Urine Ketones Urine Occult Blood Urine Nitrite Urine Bilirubin Urine Urobilinogen Ur Leukocyte Esterase Ur Microscopic Review Urine Culture Comments Salicylates Urine Opiates Screen Ur Oxycodone Screen Urine Methadone Screen Ur Propoxyphene Screen Acetaminophen Ur Barbiturates Screen Ur Tricyclics Screen Ur Phencyclidine Scrn Ur Amphetamine Screen U Methamphetamines Scrn U Benzodiazepines Scrn Urine Cocaine Screen U Cannabinoids Screen Ethyl Alcohol PD Medical Decision Making - ED course ED course: 32-year-old gentleman with history of alcoholism presents for help with that. As in the past he is found to have some significant electrolyte abnormalities including hypokalemia at 2.4, hypomagnesemia at 1.3. He does have some evidence of alcoholic hepatitis on his CMP, but his discriminant factor is 21.7 suggesting no need for steroids and his MELD Na score is 15 points suggesting a good outcome. That said he is thrombocytopenic on his CBC suggesting already some level of bone marrow failure as well. His blood alcohol here was 344. The decision to admit him was made at noon. That said the hospital is currently full and he is boarding in the department pending bed availability. In the m eantime I ordered 2 potassium riders and 2 g of magnesium sulfate IV. He has also received IV fluids and thiamine. Because he was boarding for a prolonged period of time in the emergency department repeat electrolytes were checked. Initially at approximately 2 PM. His potassium had improved from 2.4 up to 2.8. Magnesium up from 1.3-1.8. He was administered another 2 potassium chloride riders 10 mill equivalents and was also given 25 mEq of potassium orally. Electrolytes again repeated around 5:30 PM. Potassium now up to 2.9, magnesium back down to 1.6, and calcium now slightly down it was 7.9. 2 more potassium riders were ordered, oral calcium carbonate and a second dose of IV magnesium sulfate. At this point it does not appear that a [facility] and he continues to board in the emergency department and was updated on the situation. Around 8:30 PM I spoke with the charge nurse on the floor. They are still not able to accommodate this patient but due to staffing they will be able to accommodate this patient after 11. I put in a telehealth consult for admission at [address] Saldana for admission at 9:24 PM. - Critical Care Time(min): 40 Time Includes: Direct patient care, Review records, Reassess patient, Document care, Coordinate care, Medical consult Data interpretation: Labs Procedures included in critical care time: Peripheral IV Departure - Departure Disposition: ED Place in Observation Clinical Impression: Hypokalemia, Hypomagnesemia Alcohol intoxication Qualifiers: Complication of substance-induced condition: uncomplicated Qualified Code(s): F10.920 - Alcohol use, unspecified with intoxication, uncomplicated Alcoholic hepatitis Qualifiers: Ascites presence: without ascites Qualified Code(s): K70.10 - Alcoholic hepatitis without ascites Condition: Serious
[2022-08-25] MEDS ORDERED: THIAMINE 100 MG/1 ML 2 ML MDV ONE (11:25)
[2022-08-25 11:27] LABS: BASOPHILS # (AUTO) 0.1 10^3/uL (0.0-0.1); BASOPHILS % (AUTO) 0.5 %; HCT - HEMATOCRIT 41.3 % (42.0-52.0); HGB - HEMOGLOBIN 14.4 g/dL (14.0-18.0); LYMPHOCYTES # (AUTO) 1.3 10^3/uL (1.5-3.5); LYMPHOCYTES % (AUTO) 9.4 %; MEAN CORPUSCULAR HGB CONC 34.9 g/dL (32.0-36.0); MEAN CORPUSCULAR VOLUME 94.7 fL (80.0-94.0); MEAN PLATELET VOLUME 11.9 fL (7.4-11.4); MONOCYTES # (AUTO) 1.1 10^3/uL (0.0-1.0); NEUTROPHILS # (AUTO) 10.9 10^3/uL (1.5-6.6); NEUTROPHILS % (AUTO) 81.8 %; PLT - PLATELET COUNT 46 10^3/uL (130-450); RED BLOOD COUNT 4.36 10^6/uL (4.70-6.10); RED CELL DISTRIBUTION WIDTH 15.6 % (12.0-15.0); WHITE BLOOD COUNT 13.3 x10^3/uL (4.8-10.8)
[2022-08-25 11:40] LABS: MUDS CUTOFF CONCENTRATIONS CUTOFF CONC BELOW:
[2022-08-25 11:43] LABS: BILIRUBIN,URINE NEGATIVE (NEGATIVE); GLUCOSE, URINE (UA) NEGATIVE (NEGATIVE); KETONES,URINE (UA) NEGATIVE (NEGATIVE); LEUKOCYTE ESTERASE, URINE NEGATIVE (NEGATIVE); NITRITE,URINE NEGATIVE (NEGATIVE); OCCULT BLOOD,URINE NEGATIVE (NEGATIVE); PH,URINE 6.5 PH (5.0-7.5); PROTEIN,URINE NEGATIVE (NEGATIVE); UROBILINOGEN,URINE 0.2 (NORMAL) E.U./dL (NORMAL)
[2022-08-25 11:44] LABS: ACETAMINOPHEN < 10 ug/mL (10-30); ALBUMIN/GLOBULIN RATIO 0.7 (1.0-2.2); ALKALINE PHOSPHATASE 291 IU/L (42-121); ALT ALANINE AMINOTRANSFERASE 91 IU/L (10-60); AST ASPARTATE AMINOTRANSFERASE 320 IU/L (10-42); BILIRUBIN,TOTAL 2.4 mg/dL (0.2-1.0); BUN - BLOOD UREA NITROGEN < 5 mg/dL (6-20); CARBON DIOXIDE - CO2 25 mmol/L (21-32); CHLORIDE 93 mmol/L (101-111); CREATININE 0.5 mg/dL (0.6-1.2); GFR - MDRD 194 (>89); GLUCOSE 144 mg/dL (70-100); LIPASE 54 U/L (22-51); MAGNESIUM 1.3 mg/dL (1.7-2.8); SALICYLATE < 6.0 mg/dL; SODIUM 137 mmol/L (135-145); TOTAL PROTEIN 7.5 g/dL (6.7-8.2)
[2022-08-25 11:45] LABS: POTASSIUM 2.4 mmol/L (3.5-5.0)
[2022-08-25 11:48] LABS: CLARITY,URINE CLEAR (CLEAR)
[2022-08-25] MEDS ORDERED: MAGNESIUM SULFATE 2 GRAM 2 GM/50 ML BAG IV ONE ×3 (11:56→21:45)
[2022-08-25] MEDS ORDERED: POTASSIUM CHLOR 10 MEQ/100 ML 10 MEQ/100 ML BAG IV STA ×5 (11:56→17:55)
[2022-08-25] MEDS ORDERED: LACTATED RINGERS 1,000 ML IV STA ×2 (12:03→17:55)
[2022-08-25 12:05] LABS: AMPHETAMINE SCREEN,URINE NEGATIVE (NEGATIVE); BARBITURATE SCREEN,UR NEGATIVE (NEGATIVE); BENZODIAZEPINES SCREEN, URINE NEGATIVE (NEGATIVE); COCAINE SCREEN URINE NEGATIVE (NEGATIVE); METHADONE SCREEN, URINE NEGATIVE (NEGATIVE); METHAMPHETAMINES SCREEN, URINE NEGATIVE (NEGATIVE); OPIATE SCREEN, URINE NEGATIVE (NEGATIVE); OXYCODONE SCREEN, URINE NEGATIVE (NEGATIVE); PROPOXYPHENE SCREEN, URINE NEGATIVE (NEGATIVE); THC CANNABINOID SCREEN, URINE NEGATIVE (NEGATIVE); TRICYCLIC ANTIDEPRESSANT,URINE NEGATIVE (NEGATIVE)
[2022-08-25 12:26] LABS: INR 1.4 (0.8-1.2); PT - PROTHROMBIN TIME 15.2 secs (9.9-12.6)
[2022-08-25] MEDS ORDERED: ONDANSETRON 4 MG/2 ML VIAL IVP STA ×2 (13:12→16:50)
[2022-08-25] MEDS ORDERED: NICOTINE 21 MG PATCH TOP STA (14:31)
[2022-08-25 14:48] LABS: BUN - BLOOD UREA NITROGEN < 5 mg/dL (6-20); CARBON DIOXIDE - CO2 26 mmol/L (21-32); CHLORIDE 94 mmol/L (101-111); CREATININE 0.5 mg/dL (0.6-1.2); GFR - MDRD 194 (>89); GLUCOSE 109 mg/dL (70-100); MAGNESIUM 1.8 mg/dL (1.7-2.8); POTASSIUM 2.8 mmol/L (3.5-5.0); SODIUM 138 mmol/L (135-145)
[2022-08-25] MEDS: POTASSIUM BICARB 25 MEQ TABLET PO STA ×2 (15:28→15:36)
[2022-08-25] MEDS ORDERED: ACETAMINOPHEN 500 MG TABLET PO PRN (17:39)
[2022-08-25] MEDS ORDERED: ONDANSETRON 4 MG/2 ML VIAL IVP PRN (17:39)
[2022-08-25 17:53] LABS: BUN - BLOOD UREA NITROGEN < 5 mg/dL (6-20); CALCIUM 7.9 mg/dL (8.5-10.3); CARBON DIOXIDE - CO2 25 mmol/L (21-32); CHLORIDE 96 mmol/L (101-111); CREATININE 0.5 mg/dL (0.6-1.2); GFR - MDRD 194 (>89); GLUCOSE 115 mg/dL (70-100); MAGNESIUM 1.6 mg/dL (1.7-2.8); POTASSIUM 2.9 mmol/L (3.5-5.0); SODIUM 137 mmol/L (135-145)
[2022-08-25] MEDS: METOCLOPRAMIDE 10 MG/2 ML VIAL IVP PRN ×2 (17:53→23:19)
[2022-08-25] MEDS ORDERED: CALCIUM CARBONATE CHEW 500 MG TABLET PO STA (17:56)
--- NOTE | 2022-08-25 21:25 | HISTORY & PHYSICAL EXAMINATION ---
Chief Complaint - Chief Complaint Chief Complaint: Alcohol abuse History of Present Illness - Admitted From Admitted From:: ER - History Obtained From Records Reviewed: Yes History obtained from: Pt, ER Physician, chart Exam Limitations: H&P was conducted via video remotely, using Access Cart. - History of Present Illness HPI Comment/Other: Patient is in [place]. Physician is in [place]. Pt's [employer], Amilcar Salcedo is at bedside. 32 yo M with h/o ETOH abuse, GERD/Gastritis presented to the ER via EMS for c/o ETOH abuse and wanting help to quit. Pt was previously hospitalized from 07/02/22-07/04/22 for abnormal labs after going through ETOH W/D at home. He quit on his own at that time. After D/C, pt was off ETOH for 1-2 weeks, then started drinking ETOH alone at home again, usually about 1/5 vodka/day. For the past month, he has not been eating well and has been drinking every day. Pt drank last at 4A today. He then decided that he wanted to quit drinking ETOH, told his mom about this and called EMS. Pt's mother clearing out all ETOH from his house. Pt c/o mild dizziness, mild shaking/jitteriness, tingling in his feet, subjective F/C, and palpitations. In the ER, he had N/V until he had dry heaves with blood-tinge colored streaks in his emesis. No abdo pain, no dysuria, no CP/SOB, cough. In the ER, HR 124, WBC 13.3, Plts 46, K 2.4 then 2.9 s/p KCl in the ER, Ca 6.0, Mg 1.3 then 1.8 then 1.6, ETOH level 344. Pt was given IVF, Thiamine, MagSO4, KCl, Reglan, Zofran, and Nicoderm in the ER. History - Past Medical History Cardiovascular: reports: Other (Tachycardia) Respiratory: reports: None Neuro: reports: None Endocrine/Autoimmune: reports: None GI: reports: GERD : reports: None HEENT: reports: None Psych: reports: Depression Musculoskeletal: reports: None Derm: reports: None MRSA Hx?: No - POLST Patient has POLST: No Meds/Allgy - Home Medications Home Medications: Ambulatory Orders Medication Instructions Recorded Confirmed Omeprazole Magnesium 1 cap PO DAILY 07/02/22 07/02/22 Calcium Carbonate [Tums (Calcium 500 mg PO DAILY #7 tab 07/04/22 Carbonate 500mg)] Magnesium Oxide [Mag Ox] 400 mg PO DAILY #7 tablet 07/04/22 Multivit-Min/Iron/Folic Acid/K 1 each PO DAILY #30 tablet 07/04/22 [Multi-Day Plus Minerals Tablet] Potassium Chloride 20 meq PO DAILY #20 tab 07/04/22 Thiamine [Vitamin B-1] 100 mg PO DAILY #30 tab 07/04/22 - Allergies Allergies/Adverse Reactions: Allergies Allergy/AdvReac Type Severity Reaction Status Date / Time No Known Drug Allergies Allergy Verified 08/25/22 09:58 Review of Systems - All Other Systems All Other Systems: reports: Reviewed and negative Exam - Vital Signs Reviewed Vital Signs: Yes Vital Signs: Vital Signs x48h Temp Pulse Resp BP Pulse Ox O2 Flow Rate 08/25/22 20:00 37.0 C 124 H 18 149/77 H 96 08/25/22 18:00 36.8 C 115 H 18 135/83 H 92 08/25/22 16:00 119 H 20 127/75 98 08/25/22 13:56 86 18 125/73 100 3 - Physical Exam General Appearance: positive: No acute distress, Other (Exam done by Access cart , but stethoscope not working) Eyes Bilateral: positive: Normal inspection, PERRL, No scleral icterus Respiratory: positive: Other (per ER Provider: CTA B/L) Cardiovascular: positive: Other (per ER Provider: RR, Tachy, no murmurs) Abdomen: positive: Other (per ER Provider: non-distended, NT, Soft) Extremities: positive: No pedal edema Neurologic/Psychiatric: positive: Oriented x3, CN's nml (2-12) Conclusion/Plan - Problem List (1) Hypokalemia Conclusion/Plan: Hypokalemia Hypocalcemia Low Magnesium -K 2.4 then 2.9 s/p KCl, Ca 6.2 then 8.0, Mg 1.3 then 1.8 then 1.6 -Pt was given IVF, Thiamine, MagSO4, Ca, KCl, Reglan, Zofran, and Nicoderm in the ER. -continue to supplement PRN -admit to Obs; monitor on telemetry ETOH abuse Tachycardia Nausea/vomiting Leukocytosis -HR 124, WBC 13.3, ETOH level 344. -counselled pt that inpatient rehabs are available for ETOH W/D, therapy -CIWA protocol ordered for while pt is in hospital - consult Thrombocytopenia -Plts 46 -d/t ETOH abuse -monitor H/o GERD/Gastritis -continue home medications: PPI H/o Depression -supportive care -consider counseling or Psych consult VTE Prophylaxis: SCDs only d/t thrombocytopenia Code Status: Full Code ~Jeanie Saldana MD Hospitalist - Lab Results Fish Bones: 08/25/22 11:20 08/25/22 17:33
[2022-08-25] MEDS ORDERED: diazePAM 5 MG TABLET PO PRN (21:45)
[2022-08-25] MEDS ORDERED: ACETAMINOPHEN 325 MG TABLET PO PRN (21:45)
[2022-08-25] MEDS ORDERED: SODIUM CHLORIDE FLUSH 0.9% 10 ML SYRINGE IVP PRN (21:45)
[2022-08-26] MEDS: diazePAM INJ 5 MG/ML SYRINGE IVP PRN ×5 (00:34→03:38)
[2022-08-26] MEDS: SODIUM CHLORIDE FLUSH 0.9% 10 ML SYRINGE IVP SCH ×4 (02:08→23:59)
[2022-08-26 04:59] LABS: BASOPHILS % (AUTO) 0.3 %; EOSINOPHILS % (AUTO) 0.1 %; HCT - HEMATOCRIT 38.5 % (42.0-52.0); HGB - HEMOGLOBIN 13.5 g/dL (14.0-18.0); LYMPHOCYTES % (AUTO) 7.3 %; MEAN CORPUSCULAR HEMOGLOBIN 33.4 pg (27.0-31.0); MEAN CORPUSCULAR HGB CONC 35.1 g/dL (32.0-36.0); MEAN CORPUSCULAR VOLUME 95.3 fL (80.0-94.0); MEAN PLATELET VOLUME 12.6 fL (7.4-11.4); MONOCYTES # (AUTO) 1.5 10^3/uL (0.0-1.0); MONOCYTES % (AUTO) 10.3 %; NEUTROPHILS # (AUTO) 11.5 10^3/uL (1.5-6.6); NEUTROPHILS % (AUTO) 81.6 %; PLT - PLATELET COUNT 39 10^3/uL (130-450); RED BLOOD COUNT 4.04 10^6/uL (4.70-6.10); RED CELL DISTRIBUTION WIDTH 15.9 % (12.0-15.0); WHITE BLOOD COUNT 14.1 x10^3/uL (4.8-10.8)
[2022-08-26 05:48] LABS: ALBUMIN/GLOBULIN RATIO 0.7 (1.0-2.2); ALKALINE PHOSPHATASE 280 IU/L (42-121); ALT ALANINE AMINOTRANSFERASE 86 IU/L (10-60); AST ASPARTATE AMINOTRANSFERASE 321 IU/L (10-42); BILIRUBIN,TOTAL 4.3 mg/dL (0.2-1.0); BUN - BLOOD UREA NITROGEN < 5 mg/dL (6-20); CALCIUM 8.2 mg/dL (8.5-10.3); CARBON DIOXIDE - CO2 26 mmol/L (21-32); CHLORIDE 94 mmol/L (101-111); CREATININE 0.5 mg/dL (0.6-1.2); GFR - MDRD 194 (>89); GLUCOSE 95 mg/dL (70-100); MAGNESIUM 1.5 mg/dL (1.7-2.8); POTASSIUM 2.8 mmol/L (3.5-5.0); SODIUM 134 mmol/L (135-145); TOTAL PROTEIN 7.4 g/dL (6.7-8.2)
[2022-08-26] MEDS ORDERED: MAGNESIUM SULFATE 2 GRAM 2 GM/50 ML BAG IV ONE (06:57)
[2022-08-26] MEDS ORDERED: PANTOPRAZOLE 40 MG TABLET PO SCH (07:00)
[2022-08-26] MEDS: THIAMINE 100 MG TABLET PO SCH (08:13)
[2022-08-26] MEDS: PANTOPRAZOLE 40 MG TABLET PO SCH (08:14)
[2022-08-26] MEDS: MULTIVITAMIN W/MINERALS TABLET PO SCH (08:14)
[2022-08-26] MEDS: CALCIUM CARBONATE CHEW 500 MG TABLET PO SCH (08:14)
[2022-08-26] MEDS: NICOTINE 14 MG PATCH TOP SCH (08:22)
[2022-08-26] MEDS: METOCLOPRAMIDE 10 MG/2 ML VIAL IVP PRN (08:24)
[2022-08-26] MEDS ORDERED: THIAMINE 100 MG TABLET PO SCH (09:00)
[2022-08-26] MEDS ORDERED: POTASSIUM CHLORIDE 20 MEQ TABLET PO SCH (09:00)
[2022-08-26] MEDS ORDERED: SODIUM CHLORIDE 0.9% 1,000 ML IV SCH (09:00)
[2022-08-26] MEDS ORDERED: THIAMINE INJ 100 MG in SODIUM CHLORIDE 0.9% 50 ML IV SCH (09:00)
[2022-08-26] MEDS ORDERED: MAGNESIUM OXIDE 400 MG TABLET PO SCH (09:00)
[2022-08-26] MEDS ORDERED: PRENATAL VITAMIN TABLET PO SCH (09:00)
[2022-08-26] MEDS: POTASSIUM CHLOR 10 MEQ/100 ML 10 MEQ/100 ML BAG IV SCH ×4 (10:01→15:48)
[2022-08-26] MEDS ORDERED: SODIUM CHLORIDE 0.9% 1,000 ML IV ONE (11:04)
--- NOTE | 2022-08-26 11:26 | PHARMACY PROGRESS NOTE ---
- Best Possible Medication History Admit Date and Time: 08/25/22 1237 Processed by: Pharmacy Medication History completed: Yes Patient Interview: Completed Secondary Source(s): Insurance records As the person ultimately responsible for medication therapy, providers are able to order a medication from an existing home medication list in [facility] via the "Reconcile Routine" prior to Confirmation of that medication by database support. Such practice is discouraged except when the physician, in their clinical judgment, deems that a medical need exists for a medication without regard to previous use.
[2022-08-26] MEDS: chlordiazePOXIDE 25 MG CAPSULE PO SCH ×3 (11:36→23:42)
[2022-08-26 13:04] LABS: POTASSIUM 3.2 mmol/L (3.5-5.0)
--- NOTE | 2022-08-26 13:45 | PROVIDER PROGRESS NOTE ---
Assessment/Plan - Problem List (1) Alcohol withdrawal Assessment/Plan: Patient notes he drinks about 1/5 of vodka daily but over the past 2 weeks has been drinking more. He is interested in going through alcohol withdrawal and abstaining from alcohol in the future. I did review with him option of inpatie nt or outpatient rehab facility.Patient will be placed on CIWA protocol with as needed's and also started on scheduled Librium 25 mg p.o. 3 times daily. (2) Thrombocytopenia Assessment/Plan: Most likely secondary to alcohol use avoid anticoagulation due to this. Platelets are 46. (3) Alcoholic hepatitis Qualifiers: Ascites presence: without ascites Qualified Code(s): K70.10 - Alcoholic hepatitis without ascites Assessment/Plan: Secondary to alcohol abuse. Check ultrasound to rule out other etiology. Monitor labs (4) Hypomagnesemia Assessment/Plan: Replete as needed (5) Hypokalemia Assessment/Plan: Monitor and replete as necessary - Current Meds Current Meds: Current Medications Generic Name Dose Route Start Last Admin Trade Name Ahsanq PRN Reason Stop Dose Admin Calcium Carbonate/Glycine 500 mg 08/26/22 09:00 08/26/22 08:14 Calcium Carbonate Chew 500 Mg Tablet PO 500 mg DAILY [facility] Administration Chlordiazepoxide HCl 25 mg 08/26/22 12:00 08/26/22 11:36 Chlordiazepoxide 25 Mg Capsule PO 25 mg Q6HR [facility] Administration Diazepam 5 mg 08/25/22 21:45 08/26/22 03:38 Diazepam Inj 5 Mg/Ml Syringe IVP 5 mg Q30M PRN Administration CIWA > 8 Protocol Sodium Chloride 1,000 mls @ 125 mls/hr 08/26/22 09:00 08/26/22 12:51 Normal Saline 0.9% IV 08/26/22 16:59 55 mls/hr .Q8H [facility] Infusion Magnesium Oxide 400 mg 08/26/22 09:00 08/26/22 08:14 Magnesium Oxide 400 Mg Tablet PO 400 mg DAILY [facility] Administration Metoclopramide HCl 10 mg 08/25/22 17:40 08/26/22 08:24 Metoclopramide 10 Mg/2 Ml Vial IVP 10 mg Q6H PRN Administration Nausea / Vomiting Multivitamins/Minerals 1 tab 08/26/22 09:00 08/26/22 08:14 Multivitamin W/Minerals Tablet PO 1 tab DAILY [facility] Administration Nicotine 1 patch 08/26/22 09:00 08/26/22 08:22 Nicotine 14 Mg Patch TOP 1 patch DAILY [facility] Administration Ondansetron HCl 4 mg 08/25/22 17:39 08/25/22 22:46 Ondansetron 4 Mg/2 Ml Vial IVP 4 mg Q6HR PRN Administration Nausea / Vomiting Pantoprazole Sodium 40 mg 08/26/22 09:00 08/26/22 08:14 Pantoprazole 40 Mg Tablet PO 40 mg DAILY [facility] Administration Potassium Chloride 20 meq 08/26/22 09:00 08/26/22 08:14 Potassium Chloride 20 Meq Tablet PO 20 meq DAILY [facility] Administration Sodium Chloride 10 ml 08/25/22 21:45 08/25/22 23:20 Sodium Chloride Flush 0.9% 10 Ml Syringe IVP 10 ml PRN PRN Administration NEEDED PER PROVIDER ORDERS Sodium Chloride 10 ml 08/26/22 01:00 08/26/22 08:15 Sodium Chloride Flush 0.9% 10 Ml Syringe IVP 10 ml 0100,0900,1700 [facility] Administration Thiamine HCl 100 mg 08/26/22 09:00 08/26/22 08:13 Thiamine 100 Mg Tablet PO 100 mg DAILY [facility] Administration - Lab Result Fish Bone Diagrams: 08/26/22 04:37 08/26/22 12:53 - Additional Planning My Orders: My Active Orders 08/26/22 09:00 Nicotine 14 mg Patch [Nicoderm] 1 patch TOP DAILY Sodium Chloride 0.9% [Normal Saline 0.9%] 1,000 ml IV 125 mls/hr 08/26/22 10:55 NPO for Test [DIET] 08/26/22 12:00 chlordiazePOXIDE [Librium] 25 mg PO Q6HR 08/27/22 05:00 CBC - COMP BLD CT W/AUTO DIFF [HEME] DAILYLAB CMP [COMPREHENSIVE METABOLIC PANEL] [CHEM] DAILYLAB 08/28/22 05:00 CBC - COMP BLD CT W/AUTO DIFF [HEME] DAILYLAB CMP [COMPREHENSIVE METABOLIC PANEL] [CHEM] DAILYLAB 08/29/22 05:00 CBC - COMP BLD CT W/AUTO DIFF [HEME] DAILYLAB CMP [COMPREHENSIVE METABOLIC PANEL] [CHEM] DAILYLAB 08/30/22 05:00 CBC - COMP BLD CT W/AUTO DIFF [HEME] DAILYLAB CMP [COMPREHENSIVE METABOLIC PANEL] [CHEM] DAILYLAB 08/31/22 05:00 CBC - COMP BLD CT W/AUTO DIFF [HEME] DAILYLAB Subjective - Subjective Nursing Reports: Other (Does have some mild tremors persisting but is having no altered mental status and answers questions appropriately) Objective Vital Signs: Vital Signs - 24 hr 08/25/22 08/25/22 08/25/22 13:56 16:00 18:00 Temperature 36.8 C Heart Rate 86 119 H 115 H Heart Rate [ Monitoring electrodes] Respiratory 18 20 18 Rate Blood Pressure 125/73 127/75 135/83 H Blood Pressure [Right Brachial artery] O2 Saturation 100 98 92 If not protocol 3 : Oxygen Flow, liters/minute 08/25/22 08/25/22 08/25/22 20:00 22:00 23:55 Temperature 37.0 C 37.1 C Heart Rate 124 H 110 H Heart Rate [ Monitoring electrodes] Respiratory 18 17 Rate Blood Pressure 149/77 H 139/77 H Blood Pressure [Right Brachial artery] O2 Saturation 96 90 L If not protocol 3 : Oxygen Flow, liters/minute 08/26/22 08/26/22 08/26/22 00:10 00:15 05:21 Temperature 37.0 C 36.8 C Heart Rate Heart Rate [ 124 H 128 H Monitoring electrodes] Respiratory 24 20 Rate Blood Pressure Blood Pressure 136/84 H 128/64 [Right Brachial artery] O2 Saturation 96 92 If not protocol : Oxygen Flow, liters/minute 08/26/22 08/26/22 08:00 12:48 Temperature 36.9 C Heart Rate Heart Rate [ 132 H 130 H Monitoring electrodes] Respiratory 20 Rate Blood Pressure Blood Pressure 117/73 [Right Brachial artery] O2 Saturation 98 If not protocol : Oxygen Flow, liters/minute Oxygen O2 Source Room air I&O (Last 24 Hrs): Intake and Output Totals x24h 08/24/22 08/25/22 08/26/22 23:59 23:59 23:59 Intake Total 2926.00 1689.166 Balance 2926.00 1689.166 General: Alert, Other (Mild tremors) HEENT: Atraumatic Neck: Supple Neuro: Alert, Non Focal Cardiovascular: Normal S1, Normal S2, Other (Mild tachycardia) Respiratory: Chest non-tender, No respiratory distress Extremities: No edema - Results Results: Laboratory Results WBC 14.1 x10^3/uL (4.8-10.8) H 08/26/22 04:37 RBC 4.04 10^6/uL (4.70-6.10) L 08/26/22 04:37 Hgb 13.5 g/dL (14.0-18.0) L 08/26/22 04:37 Hct 38.5 % (42.0-52.0) L 08/26/22 04:37 MCV 95.3 fL (80.0-94.0) H 08/26/22 04:37 MCH 33.4 pg (27.0-31.0) H 08/26/22 04:37 MCHC 35.1 g/dL (32.0-36.0) 08/26/22 04:37 RDW 15.9 % (12.0-15.0) H 08/26/22 04:37 Plt Count 39 10^3/uL (130-450) L 08/26/22 04:37 MPV 12.6 fL (7.4-11.4) H 08/26/22 04:37 Neut # (Auto) 11.5 10^3/uL (1.5-6.6) H 08/26/22 04:37 Lymph # (Auto) 1.0 10^3/uL (1.5-3.5) L 08/26/22 04:37 [place] # (Auto) 1.5 10^3/uL (0.0-1.0) H 08/26/22 04:37 Eos # (Auto) 0.0 10^3/uL (0.0-0.7) 08/26/22 04:37 Baso # (Auto) 0.0 10^3/uL (0.0-0.1) 08/26/22 04:37 Absolute Nucleated RBC 0.00 x10^3/uL 08/26/22 04:37 Nucleated RBC % 0.0 /100WBC 08/26/22 04:37 PT 15.2 secs (9.9-12.6) H 08/25/22 12:13 INR 1.4 (0.8-1.2) H 08/25/22 12:13 Sodium 135 mmol/L (135-145) 08/26/22 12:53 Potassium 3.2 mmol/L (3.5-5.0) L 08/26/22 12:53 Chloride 95 mmol/L (101-111) L 08/26/22 12:53 Carbon Dioxide 26 mmol/L (21-32) 08/26/22 12:53 Anion Gap 14.0 (6-13) H 08/26/22 12:53 BUN < 5 mg/dL (6-20) L 08/26/22 04:37 Creatinine 0.5 mg/dL (0.6-1.2) L 08/26/22 04:37 Estimated GFR (MDRD) 194 (>89) 08/26/22 04:37 Glucose 95 mg/dL (70-100) 08/26/22 04:37 Calcium 8.2 mg/dL (8.5-10.3) L 08/26/22 04:37 Magnesium 2.0 mg/dL (1.7-2.8) 08/26/22 12:53 Total Bilirubin 4.3 mg/dL (0.2-1.0) H 08/26/22 04:37 AST 321 IU/L (10-42) H 08/26/22 04:37 ALT 86 IU/L (10-60) H 08/26/22 04:37 Alkaline Phosphatase 280 IU/L (42-121) H 08/26/22 04:37 Total Protein 7.4 g/dL (6.7-8.2) 08/26/22 04:37 Albumin 3.0 g/dL (3.2-5.5) L 08/26/22 04:37 Globulin 4.4 g/dL (2.1-4.2) H 08/26/22 04:37 Albumin/Globulin Ratio 0.7 (1.0-2.2) L 08/26/22 04:37 Lipase 54 U/L (22-51) H 08/25/22 11:20 Urine Color YELLOW 08/25/22 10:41 Urine Clarity CLEAR (CLEAR) 08/25/22 10:41 Urine pH 6.5 PH (5.0-7.5) 08/25/22 10:41 Ur Specific [place] <=1.005 (1.002-1.030) 08/25/22 10:41 Urine Protein NEGATIVE mg/dL (NEGATIVE) 08/25/22 10:41 Urine Glucose (UA) NEGATIVE mg/dL (NEGATIVE) 08/25/22 10:41 Urine Ketones NEGATIVE mg/dL (NEGATIVE) 08/25/22 10:41 Urine Occult Blood NEGATIVE (NEGATIVE) 08/25/22 10:41 Urine Nitrite NEGATIVE (NEGATIVE) 08/25/22 10:41 Urine Bilirubin NEGATIVE (NEGATIVE) 08/25/22 10:41 Urine Urobilinogen 0.2 (NORMAL) E.U./dL (NORMAL) 08/25/22 10:41 Ur Leukocyte Esterase NEGATIVE (NEGATIVE) 08/25/22 10:41 Ur Microscopic Review NOT INDICATED 08/25/22 10:41 Urine Culture Comments NOT INDICATED 08/25/22 10:41 Salicylates < 6.0 mg/dL 08/25/22 11:20 Urine Opiates Screen NEGATIVE (NEGATIVE) 08/25/22 10:41 Ur Oxycodone Screen NEGATIVE (NEGATIVE) 08/25/22 10:41 Urine Methadone Screen NEGATIVE (NEGATIVE) 08/25/22 10:41 Ur Propoxyphene Screen NEGATIVE (NEGATIVE) 08/25/22 10:41 Acetaminophen < 10 ug/mL (10-30) L 08/25/22 11:20 Ur Barbiturates Screen NEGATIVE (NEGATIVE) 08/25/22 10:41 Ur Tricyclics Screen NEGATIVE (NEGATIVE) 08/25/22 10:41 Ur Phencyclidine Scrn NEGATIVE (NEGATIVE) 08/25/22 10:41 Ur Amphetamine Screen NEGATIVE (NEGATIVE) 08/25/22 10:41 U Methamphetamines Scrn NEGATIVE (NEGATIVE) 08/25/22 10:41 U Benzodiazepines Scrn NEGATIVE (NEGATIVE) 08/25/22 10:41 Urine Cocaine Screen NEGATIVE (NEGATIVE) 08/25/22 10:41 U Cannabinoids Screen NEGATIVE (NEGATIVE) 08/25/22 10:41 Ethyl Alcohol 85.7 mg/dL 08/25/22 21:59 - Procedures Procedures: Procedures CLOSURE SKIN & SUBCUTANEOUS NEC (11/17/12) ABX Reporting Has patient been on IV antibiotics over the past 48 hours?: No
--- NOTE | 2022-08-26 17:24 | Ultrasound Report ---
PROCEDURE: Abdomen Complete INDICATIONS: Elevated LFTs TECHNIQUE: Real-time scanning was performed of the abdominal and retroperitoneal organs, with image documentatio n. COMPARISON: CT abdomen and pelvis dated 07/02/2022. FINDINGS: Liver: The liver is diffusely echogenic, consistent with fatty change. It is enlarged, measuring 21. 0 cm. Gallbladder: Unremarkable. Biliary ducts: Intrahepatic bile ducts are non-dilated. Extrahepatic bile duct caliber measures 4 m m. Normal is 6-7 mm or less in diameter, or 10 mm or less post-cholecystectomy. Pancreas: Not well visualized due to overlying bowel gas. Spleen: Borderline splenomegaly, measuring 13.1 x 11.7 x 5.8 cm. Kidneys: Kidneys are normal in size and echotexture. Right kidney measures 11.3 cm long; left kidne y measures 12.4 cm long. No hydronephrosis or nephrolithiasis. No solid masses. No complex renal cy stic lesions which require follow-up. Aorta: Visualized aorta is normal in caliber at less than 3 cm. Iliacs: Proximal common iliac arteries are normal in caliber at less than 2.5 cm. IVC: Intrahepatic inferior vena cava is patent. Miscellaneous: No free abdominal fluid. IMPRESSION: 1. Hepatomegaly, diffuse hepatic steatosis. 2. Borderline splenomegaly. 3. No evidence of gallstone disease. Reviewed by: Elie Yañez MD on 08/26/2022 5:23 PM PDT Approved by: Elie Yañez MD on 08/26/2022 5:23 PM PDT Station ID: [id number]
[2022-08-27 04:47] LABS: BASOPHILS % (AUTO) 0.2 %; EOSINOPHILS # (AUTO) 0.1 10^3/uL (0.0-0.7); EOSINOPHILS % (AUTO) 1.2 %; HCT - HEMATOCRIT 36.9 % (42.0-52.0); HGB - HEMOGLOBIN 12.7 g/dL (14.0-18.0); LYMPHOCYTES # (AUTO) 1.5 10^3/uL (1.5-3.5); MEAN CORPUSCULAR HEMOGLOBIN 33.2 pg (27.0-31.0); MEAN CORPUSCULAR HGB CONC 34.4 g/dL (32.0-36.0); MEAN CORPUSCULAR VOLUME 96.6 fL (80.0-94.0); MEAN PLATELET VOLUME 11.2 fL (7.4-11.4); MONOCYTES # (AUTO) 1.1 10^3/uL (0.0-1.0); MONOCYTES % (AUTO) 11.5 %; NEUTROPHILS # (AUTO) 6.8 10^3/uL (1.5-6.6); NEUTROPHILS % (AUTO) 70.8 %; RED BLOOD COUNT 3.82 10^6/uL (4.70-6.10); RED CELL DISTRIBUTION WIDTH 16.3 % (12.0-15.0); WHITE BLOOD COUNT 9.6 x10^3/uL (4.8-10.8)
[2022-08-27 04:53] LABS: PLT - PLATELET COUNT 27 10^3/uL (130-450); SLIDE REVIEW? Indicated
[2022-08-27 05:01] LABS: PLATELET ESTIMATE, MANUAL DECREASED (<130,000) (NORMAL); PLATELET MORPHOLOGY NORMAL APPEARANCE (NORMAL); RBC MORPHOLOGY (MULTIPLE) NORMAL APPEARANCE (NORMAL); WBC MORPHOLOGY (MULTIPLE) NORMAL APPEARANCE (NORMAL)
[2022-08-27 05:07] LABS: ALBUMIN 2.7 g/dL (3.2-5.5); ALBUMIN/GLOBULIN RATIO 0.7 (1.0-2.2); ALKALINE PHOSPHATASE 232 IU/L (42-121); ALT ALANINE AMINOTRANSFERASE 79 IU/L (10-60); AST ASPARTATE AMINOTRANSFERASE 267 IU/L (10-42); BILIRUBIN,TOTAL 5.6 mg/dL (0.2-1.0); BUN - BLOOD UREA NITROGEN < 5 mg/dL (6-20); CALCIUM 8.1 mg/dL (8.5-10.3); CARBON DIOXIDE - CO2 26 mmol/L (21-32); CHLORIDE 100 mmol/L (101-111); CREATININE 0.5 mg/dL (0.6-1.2); GFR - MDRD 194 (>89); GLUCOSE 99 mg/dL (70-100); MAGNESIUM 1.6 mg/dL (1.7-2.8); POTASSIUM 3.2 mmol/L (3.5-5.0); SODIUM 137 mmol/L (135-145); TOTAL PROTEIN 6.4 g/dL (6.7-8.2)
[2022-08-27] MEDS: chlordiazePOXIDE 25 MG CAPSULE PO SCH ×3 (06:14→21:54)
[2022-08-27] MEDS ORDERED: MAGNESIUM SULFATE 2 GRAM 2 GM/50 ML BAG IV ONE (08:02)
[2022-08-27] MEDS ORDERED: SODIUM CHLORIDE 0.9% 500 ML IV ONE (08:23)
[2022-08-27] MEDS: MAGNESIUM OXIDE 400 MG TABLET PO SCH ×2 (08:38→21:53)
[2022-08-27] MEDS: POTASSIUM CHLORIDE 20 MEQ TABLET PO SCH (08:38)
[2022-08-27] MEDS: CALCIUM CARBONATE CHEW 500 MG TABLET PO SCH (08:38)
[2022-08-27] MEDS: THIAMINE 100 MG TABLET PO SCH (08:39)
[2022-08-27] MEDS: SODIUM CHLORIDE FLUSH 0.9% 10 ML SYRINGE IVP SCH ×2 (08:39→17:14)
[2022-08-27] MEDS: MULTIVITAMIN W/MINERALS TABLET PO SCH (08:39)
[2022-08-27] MEDS: NICOTINE 14 MG PATCH TOP SCH (08:39)
[2022-08-27] MEDS: PANTOPRAZOLE 40 MG TABLET PO SCH (08:39)
[2022-08-27] MEDS: POTASSIUM CHLOR 10 MEQ/100 ML 10 MEQ/100 ML BAG IV SCH ×4 (10:21→15:41)
--- NOTE | 2022-08-27 12:55 | PROVIDER PROGRESS NOTE ---
Subjective - Prog Note Date Prog Note Date: 08/27/22 Prog Note Time: 12:43 - Subjective Pt reports feeling: Improved (Pt states he feels good overall) Subjective: Pt reports he feels "good overall." When I asked what he is most concerned about, he states he is "not concerned about anything, they are," referring to the staff. He went on to explain that his potassium and magnesium have been low. He is wondering why his hypokalemia has not resolved, since he received "5 or more bags yesterday." Overall, pt is doing well. He states he slept well last night. He has been up and ambulating w/o assistance, as he is tired of laying in bed. He did not have much of an appetite yesterday, but today he ate all his breakfast. He reports normal BM's, and urinating w/o difficulty. He denies: fever, SOTO, chest pain, dyspnea, palpitations, abdominal pain, n/v, tremors, weakness, decreased ROM. Current Medications - Current Medications Current Medications: Active Medications Acetaminophen (Acetaminophen 500 Mg Tablet) 1,000 mg PO Q6H PRN PRN Reason: Mild Pain Or Fever>38c(100.4f) Calcium Carbonate/Glycine (Calcium Carbonate Chew 500 Mg Tablet) 500 mg PO DAILY [facility] Last Admin: 08/27/22 08:38 Dose: 500 mg Chlordiazepoxide HCl (Chlordiazepoxide 25 Mg Capsule) 25 mg PO Q8HR [facility] Diazepam (Diazepam Inj 5 Mg/Ml Syringe) 5 mg IVP Q30M PRN; Protocol PRN Reason: CIWA > 8 Last Admin: 08/26/22 03:38 Dose: 5 mg Diazepam (Diazepam 5 Mg Tablet) 5 mg PO Q1H PRN; Protocol PRN Reason: CIWA > 8 Potassium Chloride (Potassium Chloride) 10 meq in 100 mls @ 100 mls/hr IV Q1H [facility] Stop: 08/27/22 12:59 Last Admin: 08/27/22 11:46 Dose: 70 mls/hr Magnesium Oxide (Magnesium Oxide 400 Mg Tablet) 400 mg PO BID [facility] Last Admin: 08/27/22 08:38 Dose: 400 mg Metoclopramide HCl (Metoclopramide 10 Mg/2 Ml Vial) 10 mg IVP Q6H PRN PRN Reason: Nausea / Vomiting Last Admin: 08/26/22 08:24 Dose: 10 mg Multivitamins/Minerals (Multivitamin W/Minerals Tablet) 1 tab PO DAILY [facility] Last Admin: 08/27/22 08:39 Dose: 1 tab Nicotine (Nicotine 14 Mg Patch) 1 patch TOP DAILY [facility] Last Admin: 08/27/22 08:39 Dose: 1 patch Ondansetron HCl (Ondansetron 4 Mg/2 Ml Vial) 4 mg IVP Q6HR PRN PRN Reason: Nausea / Vomiting Last Admin: 08/25/22 22:46 Dose: 4 mg Pantoprazole Sodium (Pantoprazole 40 Mg Tablet) 40 mg PO DAILY [facility] Last Admin: 08/27/22 08:39 Dose: 40 mg Potassium Chloride (Potassium Chloride 20 Meq Tablet) 40 meq PO DAILY [facility] Last Admin: 08/27/22 08:38 Dose: 40 meq Sodium Chloride (Sodium Chloride Flush 0.9% 10 Ml Syringe) 10 ml IVP PRN PRN PRN Reason: NEEDED PER PROVIDER ORDERS Last Admin: 08/25/22 23:20 Dose: 10 ml Sodium Chloride (Sodium Chloride Flush 0.9% 10 Ml Syringe) 10 ml IVP 0100,0 900,1700 [facility] Last Admin: 08/27/22 08:39 Dose: 10 ml Thiamine HCl (Thiamine 100 Mg Tablet) 100 mg PO DAILY [facility] Last Admin: 08/27/22 08:39 Dose: 100 mg Omeprazole Magnesium 20 mg PO QDAC 07/02/22 Objective - Vital Signs/Intake & Output Vital Signs: Vital Signs x48h Temp Pulse Resp BP Pulse Ox 08/27/22 12:10 36.7 C 138 H 16 134/89 H 95 08/27/22 08:00 36.8 C 124 H 14 107/70 95 Intake & Output: Intake & Output 08/24/22 08/25/22 08/26/22 08/27/22 23:59 23:59 23:59 23:59 Intake Total 2926.00 2990.000 1539.167 Balance 2926.00 2990.000 1539.167 - Objective General Appearance: positive: No acute distress, Alert Eyes Bilateral: positive: Normal inspection, EOMI, Other (Mild scleral icterus) Neck: positive: Nml inspection, Thyroid nml, Trachea midline Respiratory: positive: No respiratory distress, Breath sounds nml. negative: Wheezes, Rales, Rhonchi Cardiovascular: positive: No murmur, No gallop, Tachycardia Peripheral Pulses: 2+ Radial (R), 2+ Radial (L) Abdomen: positive: Non-tender, No distention. negative: Guarding, Rebound Skin: positive: Color nml, No rash, Warm Extremities: positive: Non-tender, Full ROM, Nml appearance, No pedal edema Neurologic/Psychiatric: positive: Oriented x3, CN's nml (2-12), Motor nml Comments/Other: No apparent tremors at this time. - Lab Results Fish Bones: 08/28/22 05:30 08/28/22 05:30 Other Labs: Lab Results x24hrs 08/27/22 08/27/22 08/26/22 Range/Units 04:41 04:41 12:53 WBC 9.6 (4.8-10.8) x10^3/uL RBC 3.82 L (4.70-6.10) 10^6/uL Hgb 12.7 L (14.0-18.0) g/dL Hct 36.9 L (42.0-52.0) % MCV 96.6 H (80.0-94.0) fL MCH 33.2 H (27.0-31.0) pg MCHC 34.4 (32.0-36.0) g/dL RDW 16.3 H (12.0-15.0) % Plt Count 27 L* (130-450) 10^3/uL MPV 11.2 (7.4-11.4) fL Neut # (Auto) 6.8 H (1.5-6.6) 10^3/uL Lymph # (Auto) 1.5 (1.5-3.5) 10^3/uL [place] # (Auto) 1.1 H (0.0-1.0) 10^3/uL Eos # (Auto) 0.1 (0.0-0.7) 10^3/uL Baso # (Auto) 0.0 (0.0-0.1) 10^3/uL Absolute Nucleated RBC 0.00 x10^3/uL Nucleated RBC % 0.0 /100WBC Manual Slide Review Indicated WBC Morphology NORMAL APPEARANCE (NORMAL) Platelet Estimate DECREASED (<130,000) (NORMAL) Platelet Morphology NORMAL APPEARANCE (NORMAL) RBC Morph Micro Appear NORMAL APPEARANCE (NORMAL) Sodium 137 (135-145) mmol/L Potassium 3.2 L (3.5-5.0) mmol/L Chloride 100 L (101-111) mmol/L Carbon Dioxide 26 (21-32) mmol/L Anion Gap 11.0 (6-13) BUN < 5 L (6-20) mg/dL Creatinine 0.5 L (0.6-1.2) mg/dL Estimated GFR (MDRD) 194 (>89) Glucose 99 (70-100) mg/dL Calcium 8.1 L (8.5-10.3) mg/dL Magnesium 1.6 L 2.0 (1.7-2.8) mg/dL Total Bilirubin 5.6 H (0.2-1.0) mg/dL AST 267 H (10-42) IU/L ALT 79 H (10-60) IU/L Alkaline Phosphatase 232 H (42-121) IU/L Total Protein 6.4 L (6.7-8.2) g/dL Albumin 2.7 L (3.2-5.5) g/dL Globulin 3.7 (2.1-4.2) g/dL Albumin/Globulin Ratio 0.7 L (1.0-2.2) 08/26/22 Range/Units 12:53 WBC (4.8-10.8) x10^3/uL RBC (4.70-6.10) 10^6/uL Hgb (14.0-18.0) g/dL Hct (42.0-52.0) % MCV (80.0-94.0) fL MCH (27.0-31.0) pg MCHC (32.0-36.0) g/dL RDW (12.0-15.0) % Plt Count (130-450) 10^3/uL MPV (7.4-11.4) fL Neut # (Auto) (1.5-6.6) 10^3/uL Lymph # (Auto) (1.5-3.5) 10^3/uL [place] # (Auto) (0.0-1.0) 10^3/uL Eos # (Auto) (0.0-0.7) 10^3/uL Baso # (Auto) (0.0-0.1) 10^3/uL Absolute Nucleated RBC x10^3/uL Nucleated RBC % /100WBC Manual Slide Review WBC Morphology (NORMAL) Platelet Estimate (NORMAL) Platelet Morphology (NORMAL) RBC Morph Micro Appear (NORMAL) Sodium 135 (135-145) mmol/L Potassium 3.2 L (3.5-5.0) mmol/L Chloride 95 L (101-111) mmol/L Carbon Dioxide 26 (21-32) mmol/L Anion Gap 14.0 H (6-13) BUN (6-20) mg/dL Creatinine (0.6-1.2) mg/dL Estimated GFR (MDRD) (>89) Glucose (70-100) mg/dL Calcium (8.5-10.3) mg/dL Magnesium (1.7-2.8) mg/dL Total Bilirubin (0.2-1.0) mg/dL AST (10-42) IU/L ALT (10-60) IU/L Alkaline Phosphatase (42-121) IU/L Total Protein (6.7-8.2) g/dL Albumin (3.2-5.5) g/dL Globulin (2.1-4.2) g/dL Albumin/Globulin Ratio (1.0-2.2) Sepsis Event Note (H) - Evaluation Current Stage of Sepsis: Ruled out Assessment/Plan - Problem List (1) Alcohol withdrawal Impression: Pt talked about quitting alcohol use. He denies n/v, anxiety, and tremors. Although he denies palpitations, he is tachycardic on exam. His CWAS score was 0 today. Pt appears well, and he is concerned about his potassium levels. Explained to pt he is likely losing the potassium in his urine, as tends to happen in pt's with alcohol abuse. Plan: Librium will be decreased to 25 mg PO q8hr, instead of q6hr due to low withdrawal symptoms. Continue to monitor pt. [facility] protocol discharge. Depending on labs, pt is likely to be discharged tomorrow. Qualifiers: Complication of substance-induced condition: uncomplicated Qualified Code(s): F10.930 - Alcohol use, unspecified with withdrawal, uncomplicated (2) Tachycardia Impression: Pt has been tachycardic for the past few days, with constant HR of 120s-130s. I believe it is not safe for pt to be discharged with unresolved tachycardia. Possible reasons for his elevated HR include: electrolyte depletion, pain, abnormal TSH and T4, or alcohol related cardiomyopathy. He is currently on fluids, and his electrolytes are mildly decreased. He is also receiving potassium and magnesium supplementation. He is not in any acute pain. During pt's last admission in June, his TSH was 3.26, and free T4 mildly elevated at 1.73, making the thyroid a less likely source for his tachycardia. 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 PLAN: Order EKG (3) Thrombocytopenia Impression: Most likely secondary to alcohol abuse. Platelets have decreased from 08/26 - 39 to 08/27 - . Plan: I believe the pt will benefit from replenishing vitamin b12 and folic acid, which could help improve the platelet count. (4) Alcoholic hepatitis Impression: Pt's 08/26 abdominal US revealed: 1. hepatomegaly, diffuse hepatic steatosis, 2. Borderline splenomegaly, 3. No evidence of gallstone disease. These findings help rule out biliary etiology. Plan: I will continue to monitor LFTs, as they should be returning to normal limits. I believe he will benefit from continuing thiamine, and adding folic acid and vitamin b12, as he is likely deficient due to his alcohol abuse. Qualifiers: Ascites presence: without ascites Qualified Code(s): K70.10 - Alcoholic he patitis without ascites (5) Hypomagnesemia Impression: Mag has decreased from 2.0 yesterday, to 1.6 today. Plan: He will continue to receive Mag oxide 400 mg PO bid. Levels will be rechecked tomorrow. Pending on results, pt could possibly be discharged tomorrow. (6) Hypokalemia Impression: Potassium has increased: 08/26 4 am - 2.8, 08/26 12:50 pm - 3.2, 08/27 - 3.2. Plan: Pt's potassium levels will continue to be monitored, and replenished by KCl 20 meq PO, and IV KCl 10 meq/100 mL q1hr x 4 bags. Depending on levels tomorrow morning, pt could possibly be discharging after breakfast.
[2022-08-27] MEDS ORDERED: CALCIUM CARBONATE CHEW 500 MG TABLET PO PRN (17:02)
[2022-08-28] MEDS: SODIUM CHLORIDE FLUSH 0.9% 10 ML SYRINGE IVP SCH ×2 (04:52→08:13)
[2022-08-28] MEDS: chlordiazePOXIDE 25 MG CAPSULE PO SCH (05:35)
[2022-08-28 05:41] LABS: BASOPHILS % (AUTO) 0.2 %; EOSINOPHILS # (AUTO) 0.1 10^3/uL (0.0-0.7); EOSINOPHILS % (AUTO) 0.9 %; HCT - HEMATOCRIT 34.5 % (42.0-52.0); HGB - HEMOGLOBIN 11.7 g/dL (14.0-18.0); MEAN CORPUSCULAR HEMOGLOBIN 33.1 pg (27.0-31.0); MEAN CORPUSCULAR HGB CONC 33.9 g/dL (32.0-36.0); MEAN CORPUSCULAR VOLUME 97.5 fL (80.0-94.0); MEAN PLATELET VOLUME 12.2 fL (7.4-11.4); MONOCYTES # (AUTO) 1.1 10^3/uL (0.0-1.0); NEUTROPHILS # (AUTO) 7.8 10^3/uL (1.5-6.6); NEUTROPHILS % (AUTO) 77.5 %; RED BLOOD COUNT 3.54 10^6/uL (4.70-6.10); RED CELL DISTRIBUTION WIDTH 16.4 % (12.0-15.0)
[2022-08-28 05:42] LABS: PLT - PLATELET COUNT 34 10^3/uL (130-450); SLIDE REVIEW? Indicated
[2022-08-28 05:59] LABS: PLATELET ESTIMATE, MANUAL DECREASED (<130,000) (NORMAL); PLATELET MORPHOLOGY NORMAL APPEARANCE (NORMAL); RBC MORPHOLOGY (MULTIPLE) NORMAL APPEARANCE (NORMAL); WBC MORPHOLOGY (MULTIPLE) NORMAL APPEARANCE (NORMAL)
[2022-08-28 06:00] LABS: ALBUMIN 2.5 g/dL (3.2-5.5); ALBUMIN/GLOBULIN RATIO 0.7 (1.0-2.2); ALKALINE PHOSPHATASE 199 IU/L (42-121); ALT ALANINE AMINOTRANSFERASE 69 IU/L (10-60); AST ASPARTATE AMINOTRANSFERASE 212 IU/L (10-42); BILIRUBIN,TOTAL 5.3 mg/dL (0.2-1.0); BUN - BLOOD UREA NITROGEN < 5 mg/dL (6-20); CARBON DIOXIDE - CO2 25 mmol/L (21-32); CHLORIDE 103 mmol/L (101-111); CREATININE 0.6 mg/dL (0.6-1.2); GFR - MDRD 157 (>89); GLUCOSE 113 mg/dL (70-100); POTASSIUM 3.5 mmol/L (3.5-5.0); SODIUM 137 mmol/L (135-145); TOTAL PROTEIN 5.9 g/dL (6.7-8.2)
[2022-08-28] MEDS: NICOTINE 14 MG PATCH TOP SCH (08:07)
[2022-08-28] MEDS: CALCIUM CARBONATE CHEW 500 MG TABLET PO SCH (08:08)
[2022-08-28] MEDS: THIAMINE 100 MG TABLET PO SCH (08:08)
[2022-08-28] MEDS: PANTOPRAZOLE 40 MG TABLET PO SCH (08:08)
[2022-08-28] MEDS: MAGNESIUM OXIDE 400 MG TABLET PO SCH (08:08)
[2022-08-28] MEDS: MULTIVITAMIN W/MINERALS TABLET PO SCH (08:08)
[2022-08-28] MEDS: POTASSIUM CHLORIDE 20 MEQ TABLET PO SCH (08:13)
[2022-08-28 08:18] VITALS: BP 124/76
[2022-08-28 08:54] LABS: THYROID STIMULATING HORMONE 1.01 uIU/mL (0.34-5.60)
[2022-08-28 08:58] LABS: FREE T4 (FREE THYROXINE) 1.5 ng/dL (0.58-1.64)
[2022-08-28] MEDS ORDERED: METOPROLOL SUCCINATE 50 MG TABLET PO SCH ×2 (09:00→10:10)
[2022-08-28] MEDS ORDERED: MAGNESIUM OXIDE 400 MG TABLET PO SCH (09:26)
--- NOTE | 2022-08-28 13:13 | Discharge Plan ---
Discharge Plan Problem Reviewed?: Yes Disposition: Home, Self Care Condition: Stable Prescriptions: Potassium Chloride [K-Dur] 20 meq PO DAILY #15 tab chlordiazePOXIDE [Librium] 10 mg PO UD #9 cap Magnesium Citrate and Oxide [Magnesium] 250 mg PO DAILY #30 cap Mv-Mn/Iron/FA/Om3/Dha/Epa/Hb/D [ Daily Duo Combo Pack] 1 each PO DAILY #30 ea Metoprolol Succinate [Toprol Xl] 50 mg PO DAILY #30 tab Thiamine [Vitamin B-1] 100 mg PO DAILY #30 tab Diet: Regular Activity Restrictions: Activity as Tolerated Shower Restrictions: No Driving Restrictions: No Health Concerns: You were hospitalized to manage alcohol withdrawal. You are being discharged home today since you have gone through withdrawal and are stable. You are being discharged to continue to take the tapering down schedule of Librium, over several more days. Your heart rate was very high at the time of admission, which we felt was part of the alcohol withdrawal. However the heart rate remained high by day 3 therefore you needed extra hospitalization and testing. The reason for your persistently high heart rate might be a slightly overactive thyroid gland. An Echocardiogram was again done of your heart that shows a strong heart muscle, so no evidence of a weakened heart muscle, which could have been caused by alcohol abuse. You are being discharged home today and advised to take a new medicine for heart rate control, which is called Toprol-XL 50 mg daily. Because of alcohol use, your body loses potassium and magnesium. You have needed potassium and magnesium replacements while you were here. You are being discharged home and advised to keep taking daily magnesium (a prescription was ordered or you may use the [id number] tablets that you have at home). Also a new prescription for potassium daily for the next 2 weeks has been prescribed for you. All new prescriptions were electronically sent to your pharmacy [facility] in [place]. Please see your new primary care provider in the next 1 to 4 weeks for hospital follow-up visit. She will determine if you need continued potassium, magnesium, another thyroid blood test, and when or if you can stop taking the Toprol. Please REMAIN OFF ALCOHOL. Daily multivitamin and daily Thiamine vitamin are recommended, which help to prevent the brain changes that it can occur from alcohol abuse. Plan of Treatment: As above. Care Goals: Improvement in symptoms and stabi;ization are the goals. Assessment: The patient understands and is agreeable with the plan. Additional Instructions or Follow Up instructions: If you have new or worsening symptoms, call your Primary Care Provider for ad vice, or come to the ER. No Smoking: If you smoke, Please STOP! Call for help. Follow-up with: Radha Mills ARNP [Credentialed Staff Provider] -
--- NOTE | 2022-08-28 14:48 | DISCHARGE SUMMARY ---
Discharge Summary Admit Date: 08/25/22 Discharge Date: 08/28/22 Discharging Provider: Dr. Bailon Primary Care Provider: Opal Mills NP Code Status: Attempt Resuscitation Condition at Discharge: Stable Discharge Disposition: 01 Home, Self Care - HPI History of Present Illness: 32 yo M with h/o ETOH abuse, GERD/Gastritis presented to the ER via EMS for c/o ETOH abuse and wanting help to quit. Pt was previously hospitalized from 07/02/22-07/04/22 for abnormal labs after going through ETOH W/D at home. He quit on his own at that time. After D/C, pt was off ETOH for 1-2 weeks, then started drinking ETOH alone at home again, usually about 1/5 vodka/day. For the past month, he has not been eating well and has been drinking every day. Pt drank la st at 4A today. He then decided that he wanted to quit drinking ETOH, told his mom about this and called EMS. Pt's mother clearing out all ETOH from his house. Pt c/o mild dizziness, mild shaking/jitteriness, tingling in his feet, subjective F/C, and palpitations. In the ER, he had N/V until he had dry heaves with blood-tinge colored streaks in his emesis. No abdo pain, no dysuria, no CP/SOB, cough. In the ER, HR 124, WBC 13.3, Plts 46, K 2.4 then 2.9 s/p KCl in the ER, Ca 6.0, Mg 1.3 then 1.8 then 1.6, ETOH level 344. Pt was given IVF, Thiamine, MagSO4, KCl, Reglan, Zofran, and Nicoderm in the ER. - HOSPITAL COURSE Hospital Course: (1) Alcohol withdrawal Patient was previously hospitalized for alcohol withdrawal in June this year. H juan has expressed wanting to quit alcohol use. Pt was placed on CIWA protocol, started on Librium 25 mg tid, and IV fluids. Throughout his admission, he had mild withdrawal symptoms including tremors, nausea, and vomit, all which subsided as he progressed. Pt had a leukocytosis on admission, which resolved on day 3. He has been tachycardic throughout his stay. His electrolytes were able to be replenished. Librium was decreased. Today his labs are within normal limits, and therefore is able to be safely discharged home. Pt was advised to stop alcohol use, to which he verbalized he intended to so. Pt was discharged with several tablets of Librium to help with his taper. (2) Tachycardia Patient has been tachycardic throughout most of his stay, with constant HR of 120s-130s. Possible reasons for his elevated HR include: electrolyte depletion, pain, abnormal TSH and T4, or alcohol related cardiomyopathy. 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 Pt had an ECHO which revealed no pathology. His EKG revealed sinus tachycardia. The most likely cause is the fin ding of a mildly elevated T4, which was found on the last hospitalization, suggesting borderline hyperthyroidism. He was started on 50 mg Toprol-XL, to which his HR decreased to the mid 90s. At this point, his tachycardia is stable and can be discharged. He is to follow-up with his PCP within 1 month to assess Toprol management and follow-up his thyroid function. (3) Hypomagnesemia Upon admission his magnesium was low at 1.3. He was given magnesium orally t hroughout his stay, and IV mag once. Today his level is still decreased, at 1.5. Since he is not having tremors anymore, and he is mildly depleted, I believe he is stable enough to be discharged home. He is to continue oral magnesium supplements upon discharge. Pt will follow-up with his PCP to further assess his magnesium within 4 weeks. (4) Hypokalemia Upon admission his potassium was very low at 2.4. He was given oral and IV potassium, with his levels slowly increasing. Today his potassium is at 3.5, within normal range. He is stable enough to be safely discharged home. He will continue oral potassium supplementation at home. He is to follow-up with his PCP to reassess his potassium within 4 weeks. (5) Alcoholic hepatitis Abdominal ultrasound was revealed hepatomegaly, diffuse hepatic steatosis, borderline splenomegaly, and no evidence of gallstone disease. This is very likely secondary to alcohol abuse. His LFT were moderately elevated on admission, and started lowering throughout his stay. During time of discharge they were still elevated, however it will likely take weeks to return to normal levels. (6) Thrombocytopenia Transient thrombocytopenia secondary to alcohol abuse. His platelet count should return to normal within weeks, so long as he abstains from alcohol. - ALLERGIES Allergies/Adverse Reactions: Allergies Allergy/AdvReac Type Severity Reaction Status Date / Time No Known Drug Allergies Allergy Verified 08/25/22 09:58 - MEDICATIONS Home Medications: Ambulatory Orders Medication Instructions Recorded Confirmed Omeprazole Magnesium 20 mg PO QDAC 07/02/22 08/26/22 Magnesium Citrate and Oxide 250 mg PO DAILY #30 cap 08/28/22 [Magnesium] Metoprolol Succinate [Toprol Xl] 50 mg PO DAILY #30 tab 08/28/22 Mv-Mn/Iron/FA/Om3/Dha/Epa/Hb/D 1 each PO DAILY #30 ea 08/28/22 [ Daily Duo Combo Pack] Potassium Chloride [K-Dur] 20 meq PO DAILY #15 tab 08/28/22 Thiamine [Vitamin B-1] 100 mg PO DAILY #30 tab 08/28/22 chlordiazePOXIDE [Librium] 10 mg PO UD #9 cap 08/28/22 - PHYSICAL EXAM AT DISCHARGE General Appearance: positive: No acute distress, Alert Eyes Bilateral: positive: Normal inspection, EOMI Neck: positive: Nml inspection, No JVD, Trachea midline Cardiovascular: positive: Regular rate & rhythm Abdomen: positive: Non-tender, No distention Skin: positive: No rash, Warm, Dry Extremities: positive: Full ROM, Nml appearance Neurologic/Psychiatric: positive: Oriented x3, CN's nml (2-12) - LABS Result Diagrams: 08/28/22 05:30 08/28/22 05:30 - DIAGNOSTIC IMAGING Diagnostic Imaging Results: Final report reviewed - SEPSIS Current Stage of Sepsis: Ruled out - TIME SPENT Time Spent in Discharge (Minutes): 30
[2022-08-28] MEDS ORDERED: chlordiazePOXIDE 25 MG CAPSULE PO SCH (21:00)
== END 2022-08-28 14:30 | disposition home or self-care (01) | DRG 897 ==
LOC: EDUNIT# → ED 09:46 → MS2 21:45 → OBSVTOIN 08-27 07:54
PROVIDERS: ADMIT Internal Medicine; ATTEND Internal Medicine
DX: F10.239 Alcohol dependence with withdrawal, unspecified (principal); F10.20 Alcohol dependence, uncomplicated; K70.10 Alcoholic hepatitis without ascites; F10.229 Alcohol dependence with intoxication, unspecified; Y90.8 Blood alcohol level of 240 mg/100 ml or more; R00.0 Tachycardia, unspecified; E83.42 Hypomagnesemia; E87.6 Hypokalemia; D69.59 Other secondary thrombocytopenia; K21.9 Gastro-esophageal reflux disease without esophagitis; F32.A Depression, unspecified; D72.829 Elevated white blood cell count, unspecified; E05.90 Thyrotoxicosis, unspecified without thyrotoxic crisis or storm; F17.200 Nicotine dependence, unspecified, uncomplicated
CPT/HCPCS: 36415; 76700; 80048; 80051; 80053; 80306; 80307; 80320; 80329; 81003; 83690; 83735; 84439; 84443; 85025; 85049; 85610; 93005; 93306; 96365; 96366; 96367; 96368; 96375; 96376; 99285; 99291; A9270; J2765; J3411; J7040; J7120; 81001; 87086

== ENCOUNTER 2022-10-02 17:13 | Outpatient (CLI) | payer MEDICAID | END 2022-10-02 23:59 | disposition critical access hospital (66) | LOC: EMS 17:13 | DX: R46.4 Slowness and poor responsiveness (principal); R06.89 Other abnormalities of breathing; R17 Unspecified jaundice; R18.8 Other ascites; S30.1XXA Contusion of abdominal wall, initial encounter; S50.02XA Contusion of left elbow, initial encounter; S40.022A Contusion of left upper arm, initial encounter; W19.XXXA Unspecified fall, initial encounter; Y92.009 Unspecified place in unspecified non-institutional (private) residence as the place of occurrence of the external cause | CPT/HCPCS: A0425; A0427; A0999 ==

== ENCOUNTER 2022-10-02 17:38 | Inpatient (IN) | payer MEDICAID ==
[2022-10-02] MEDS ORDERED: iohexoL-300 100 ML VIAL ONE (17:52)
--- NOTE | 2022-10-02 17:54 | ED Physician Documentation ---
History of Present Illness - Stated complaint Stated Complaint: GLF - Chief complaint Chief Complaint: Trauma Yuri - History obtained from History obtained from: Patient - History of Present Illness Timing: Today Pain level max: 0 Pain level now: 0 - Additonal information Additional information: Patient is a 32-year-old male who has been drinking alcohol heavily today and tripped and fell at home. He states he also fell 1 week ago. Complaining of left-sided rib pain, bruising to the left rib and left side of the abdomen. Apparently on the 911 call they were concerned that he was not breathing and CPR was recommended but nobody performed CPR as he was actually breathing and did have a pulse. He states that he has not seen a GI doctor for his cirrhosis. He is unsure if he struck his head today or not. He was activated as a modified trauma by EMS. Review of Systems Unable to obtain: Intoxicated PD PAST MEDICAL HISTORY - Past Medical History Cardiovascular: None Respiratory: None Neuro: None Endocrine/Autoimmune: None GI: GERD : None HEENT: None Psych: Depression Musculoskeletal: None Derm: None - Past Surgical History Past Surgical History: No - Present Medications Home Medications: Ambulatory Orders Medication Instructions Recorded Confirmed Omeprazole Magnesium 20 mg PO QDAC 07/02/22 08/26/22 Magnesium Citrate and Oxide 250 mg PO DAILY #30 cap 08/28/22 [Magnesium] Metoprolol Succinate [Toprol Xl] 50 mg PO DAILY #30 tab 08/28/22 Mv-Mn/Iron/FA/Om3/Dha/Epa/Hb/D 1 each PO DAILY #30 ea 08/28/22 [ Daily Duo Combo Pack] Potassium Chloride [K-Dur] 20 meq PO DAILY #15 tab 08/28/22 Thiamine [Vitamin B-1] 100 mg PO DAILY #30 tab 08/28/22 chlordiazePOXIDE [Librium] 10 mg PO UD #9 cap 08/28/22 - Allergies Allergies/Adverse Reactions: Allergies Allergy/AdvReac Type Severity Reaction Status Date / Time No Known Drug Allergies Allergy Verified 08/25/22 09:58 - Social History Does the pt smoke?: Yes Smoking Status: Current every day smoker Does the pt drink ETOH?: Yes Does the pt have substance abuse?: Yes - Immunizations Immunizations are current?: Yes - POLST Patient has POLST: No PD ED PE NORMAL - Vitals Vital signs reviewed: Yes - General General: No acute distress, Well developed/nourished, Other (Drowsy but arousable, oriented x3.) - HEENT HEENT: Atraumatic, PERRL, Moist mucous membranes, Pharynx benign - Neck Neck: Supple, no meningeal sign, No bony TTP - Cardiac Cardiac: RRR, Strong equal pulses, Other (Ecchymosis to the left upper ribs, tenderness at this site. There is also some tenderness over the left lower ribs. No crepitus.) - Respiratory Respiratory: No respiratory distress, Clear bilaterally - Abdomen Abdomen: Soft, Non tender, Non distended, Other (Small amount of bruising over the left flank, no tenderness) - Back Back: No spinal TTP - Derm Derm: Warm and dry - Extremities Extremities: No deformity, No tenderness to palpate, Normal ROM s pain - Neuro Neuro: scowman 2-12 intact, No motor deficit, No sensory deficit, Other (Drowsy but arousable) Eye Opening: Spontaneous Motor: Localizes to Pain Verbal: Oriented GCS Score: 14 Results - Vitals Vitals: Vital Signs - 24 hr 10/02/22 10/02/22 10/02/22 17:46 18:00 18:30 Temperature 36.5 C Heart Rate 101 H 97 98 Respiratory 14 10 L 8 L Rate Blood Pressure 124/86 H 124/86 H 121/79 O2 Saturation 86 L 94 97 If not protocol 3 3 : Oxygen Flow, liters/minute 10/02/22 19:00 Temperature Heart Rate 101 H Respiratory 11 L Rate Blood Pressure 125/76 O2 Saturation 93 If not protocol 3 : Oxygen Flow, liters/minute Oxygen O2 Source Nasal cannula - Labs Labs: Laboratory Tests 10/02/22 10/02/22 10/02/22 17:47 17:47 17:47 WBC 16.7 H RBC 3.18 L Hgb 11.2 L Hct 30.7 L MCV 96.5 H MCH 35.2 H MCHC 36.5 H RDW 19.7 H Plt Count 49 L MPV 11.0 Neut # (Auto) 13.6 H Lymph # (Auto) 1.8 Love # (Auto) 1.1 H Eos # (Auto) 0.0 Baso # (Auto) 0.0 Absolute Nucleated RBC 0.00 Nucleated RBC % 0.0 PT INR APTT VBG pH Ionized Calcium Sodium 129 L Potassium 2.2 L* Chloride 83 L Carbon Dioxide 31 Anion Gap 15.0 H BUN 6 Creatinine 0.4 L Estimated GFR (MDRD) 251 Glucose 127 H Calcium 7.0 L Phosphorus 2.2 L Magnesium 1.2 L Total Bilirubin 9.1 H AST 175 H ALT 32 Alkaline Phosphatase 219 H Ammonia Total Creatine Kinase 54 Total Protein 6.9 Albumin 2.3 L Globulin 4.6 H Albumin/Globulin Ratio 0.5 L Lipase 88 H TSH 1.60 Salicylates 6.3 Acetaminophen < 10 L Ethyl Alcohol 448.0 10/02/22 10/02/22 10/02/22 17:47 17:57 18:57 WBC RBC Hgb Hct MCV MCH MCHC RDW Plt Count MPV Neut # (Auto) Lymph # (Auto) Love # (Auto) Eos # (Auto) Baso # (Auto) Absolute Nucleated RBC Nucleated RBC % PT 17.2 H INR 1.6 H APTT 42.1 H VBG pH 7.523 H Ionized Calcium 0.87 L Sodium Potassium Chloride Carbon Dioxide Anion Gap BUN Creatinine Estimated GFR (MDRD) Glucose Calcium Phosphorus Magnesium Total Bilirubin AST ALT Alkaline Phosphatase Ammonia 90.3 H* Total Creatine Kinase Total Protein Albumin Globulin Albumin/Globulin Ratio Lipase TSH Salicylates Acetaminophen Ethyl Alcohol - Rads (name of study) head Ct Relevant Findings:: Final report received, See rad report c-spine CT Relevant Findings:: Final report received, See rad report chest CT Relevant Findings:: Final report received, See rad report abd/pel CT Relevant Findings:: Final report received, See rad report PD Medical Decision Making - ED course Complexity details: reviewed results, re-evaluated patient, considered differential, d/w patient, d/w oracle hyperion consultant ED course: 32-year-old male with hypoxia, likely secondary to oversedation from his heavy alcohol use and intoxication. He is drowsy but arousable in the emergency department. No acute findings on head CT, cervical spine CT, chest, abdomen and pelvis CT scans. Does have a mildly elevated white blood cell count, this is not uncommon for him when he comes to the hospital. He also has mild anemia which is chronic as well. Chronic thrombocytopenia. INR is elevated. Ionized calcium is low at 0.87. The hospitalist will give calcium gluconate. His potassium is significantly low at 2.2 and his magnesium is low at 1.2. Bilirubin is high at 9.1, ammonia elevated at 90.3. Alcohol level is also elevated at 448.0. Patient was given IV fluids, thiamine, potassium, magnesium and placed on supplemental oxygen, 4 L, O2 sat was then around 96%. He was around 86% on room air. Patient will need admission for correction of electrolytes and to allow him to sober. Patient also has ascites, consistent with liver cirrhosis. Discussed the case with the nighttime hospitalist who accepts. This document was made in part using voice recognition software. While efforts are made to proofread this document, sound alike and grammatical errors may occur. Departure - Departure Disposition: 66 [facility] DC/Xfer Clinical Impression: Thrombocytopenia, Hyperbilirubinemia, Hypomagnesemia, Hypocalcemia, Hypokalemia, Hypoxia, Hyperammonemia Alcoholic hepatitis Qualifiers: Ascites presence: with ascites Qualified Code(s): K70.11 - Alcoholic hepatitis with ascites Alcohol intoxication Qualifiers: Complication of substance-induced condition: uncomplicated Qualified Code(s): F10.920 - Alcohol use, unspecified with intoxication, uncomplicated Condition: Stable
[2022-10-02 17:56] LABS: BASOPHILS % (AUTO) 0.2 %; EOSINOPHILS % (AUTO) 0.2 %; HCT - HEMATOCRIT 30.7 % (42.0-52.0); HGB - HEMOGLOBIN 11.2 g/dL (14.0-18.0); LYMPHOCYTES # (AUTO) 1.8 10^3/uL (1.5-3.5); LYMPHOCYTES % (AUTO) 10.9 %; MEAN CORPUSCULAR HEMOGLOBIN 35.2 pg (27.0-31.0); MEAN CORPUSCULAR HGB CONC 36.5 g/dL (32.0-36.0); MEAN CORPUSCULAR VOLUME 96.5 fL (80.0-94.0); MONOCYTES # (AUTO) 1.1 10^3/uL (0.0-1.0); MONOCYTES % (AUTO) 6.8 %; NEUTROPHILS # (AUTO) 13.6 10^3/uL (1.5-6.6); NEUTROPHILS % (AUTO) 81.4 %; PLT - PLATELET COUNT 49 10^3/uL (130-450); RED BLOOD COUNT 3.18 10^6/uL (4.70-6.10); RED CELL DISTRIBUTION WIDTH 19.7 % (12.0-15.0); WHITE BLOOD COUNT 16.7 x10^3/uL (4.8-10.8)
[2022-10-02 18:04] LABS: INR 1.6 (0.8-1.2); PT - PROTHROMBIN TIME 17.2 secs (9.9-12.6)
[2022-10-02 18:11] LABS: PARTIAL THROMBOPLASTIN TIME 42.1 secs (24.9-33.3)
[2022-10-02 18:12] LABS: ACETAMINOPHEN < 10 ug/mL (10-30); ALBUMIN 2.3 g/dL (3.2-5.5); ALBUMIN/GLOBULIN RATIO 0.5 (1.0-2.2); ALKALINE PHOSPHATASE 219 IU/L (42-121); ALT ALANINE AMINOTRANSFERASE 32 IU/L (10-60); AST ASPARTATE AMINOTRANSFERASE 175 IU/L (10-42); BILIRUBIN,TOTAL 9.1 mg/dL (0.2-1.0); BUN - BLOOD UREA NITROGEN 6 mg/dL (6-20); CARBON DIOXIDE - CO2 31 mmol/L (21-32); CHLORIDE 83 mmol/L (101-111); CK- CREATINE KINASE 54 IU/L (22-269); CREATININE 0.4 mg/dL (0.6-1.2); GFR - MDRD 251 (>89); GLUCOSE 127 mg/dL (70-100); LIPASE 88 U/L (22-51); MAGNESIUM 1.2 mg/dL (1.7-2.8); PHOSPHORUS 2.2 mg/dL (2.5-4.6); SALICYLATE 6.3 mg/dL; SODIUM 129 mmol/L (135-145); TOTAL PROTEIN 6.9 g/dL (6.7-8.2)
[2022-10-02 18:14] LABS: POTASSIUM 2.2 mmol/L (3.5-5.0)
[2022-10-02] MEDS ORDERED: MAGNESIUM SULFATE 2 GRAM 2 GM/50 ML BAG IV ONE ×2 (18:19→19:49)
[2022-10-02] MEDS ORDERED: POTASSIUM CHLOR 10 MEQ/100 ML 10 MEQ/100 ML BAG IV STA ×2 (18:20→19:04)
[2022-10-02] MEDS ORDERED: iohexoL-300 100 ML VIAL IVP ONE (18:23)
--- NOTE | 2022-10-02 18:44 | CT Report ---
PROCEDURE: HEAD WO INDICATIONS: fall, liver cirrhosis, aloc TECHNIQUE: Noncontrast 4.5 mm thick angled axial sections acquired from the foramen magnum to the vertex. For r adiation dose reduction, the following was used: automated exposure control, adjustment of mA and/or kV according to patient size. COMPARISON: None. FINDINGS: Image quality: Excellent. CSF spaces: Basal cisterns are patent. No extra-axial fluid collections. Ventricles are normal in size and shape. Brain: No midline shift. No intracranial masses or hemorrhage. Pickens-white matter interface is norm al. Skull and face: Calvarium and visualized facial bones are intact, without suspicious lesions. Sinuses: Visualized sinuses and mastoids are clear. IMPRESSION: No acute process. Reviewed by: Soniya Corey MD on 10/02/2022 6:42 PM PDT Approved by: Soniya Corey MD on 10/02/2022 6:42 PM PDT Station ID: [id number]
--- NOTE | 2022-10-02 18:45 | CT Report ---
PROCEDURE: CERVICAL SPINE WO INDICATIONS: fall, liver cirrhosis, aloc TECHNIQUE: Noncontrast 3 mm thick sections acquired from the skull base to the T4 level. Sagittal and coronal r eformats were then constructed. For radiation dose reduction, the following was used: automated exp osure control, adjustment of mA and/or kV according to patient size. COMPARISON: None. FINDINGS: Image quality: Excellent. Bones: No fractures or dislocations. Visualized superior ribs are intact. Soft tissues: Prevertebral soft tissues are normal in thickness. No paravertebral hematomas. No ap ical pneumothoraces. IMPRESSION: No fracture. Reviewed by: Soniya Corey MD on 10/02/2022 6:43 PM PDT Approved by: Soniya Corey MD on 10/02/2022 6:43 PM PDT Station ID: [id number]
--- NOTE | 2022-10-02 18:50 | CT Report ---
PROCEDURE: CHEST W INDICATIONS: fall, liver cirrhosis, L sided bruising CONTRAST: 100mL Omni 300 TECHNIQUE: After the administration of intravenous contrast, 1 mm axial images were acquired from the pulmonary apices through the posterior costophrenic angles. Axial 5 mm soft tissue kernel reconstructions were performed as well as 8 mm axial MIP and coronal and sagittal 5 mm reformations. For radiation dose reduction, the following was used: automated exposure control, adjustment of mA and/or kV according to patient size. COMPARISON: CT dated 07/02/2022 FINDINGS: Image quality: Excellent. Lungs and pleura: Moderate deep and patchy opacity within the right upper lobe posteriorly. Mild grou ndglass density within the bilateral lower lobes. No pleural effusions. No pneumothorax. No suspicio us pulmonary nodules which require follow up. Mediastinum: Heart size is normal. Calcification of the coronary vasculature. No pericardial effusion . No large vessel abnormality. No mediastinal adenopathy by size criteria. Thickening of the distal esophagus, new since the prior examination. Chest wall and lower neck: Thyroid is unremarkable. No axillary or supraclavicular adenopathy by size . Bones: No aggressive osseous abnormality. Upper Abdomen: No change in low density adjacent to the gallbladder fossa. Gallbladder demonstrates d iffusely decreased density. No change in low-density focus within the right hepatic lobe laterally. S mall amount of ascites. IMPRESSION: 1. There is new thickening of the distal esophagus, which could indicate esophageal injury. 2. Bilateral pulmonary atelectasis versus pneumonia. Findings could also represent pulmonary contusio n. 3. Hepatic steatosis. 4. Small amount of ascites. Reviewed by: Soniya Corey MD on 10/02/2022 6:48 PM PDT Approved by: Soniya Corey MD on 10/02/2022 6:48 PM PDT Station ID: [id number]
--- NOTE | 2022-10-02 18:52 | CT Report ---
PROCEDURE: ABDOMEN/PELVIS W INDICATIONS: fall, liver cirrhosis, abd bruising. CONTRAST: 100mL Omni 300 TECHNIQUE: After the administration of intravenous contrast, 5 mm thick sections acquired from the diaphragms to the symphysis. 5 mm thick coronal and sagittal reformats were acquired. For radiation dose reducti on, the following was used: automated exposure control, adjustment of mA and/or kV according to pino ent size. COMPARISON: 07/02/2022 FINDINGS: Image quality: Excellent. Lung bases and heart: Bibasilar pulmonary opacities. Liver: Liver is enlarged and demonstrates diffusely decreased density, as before. Focal low-density a djacent to the gallbladder fossa and right hepatic lobe is unchanged. Gallbladder and biliary tree: Within normal limits Spleen: No splenomegaly. Pancreas: No pancreatic ductal dilation. Adrenals: No adrenal nodule. Kidneys and ureters: No hydronephrosis. No renal cystic lesion which requires follow up. No solid mas s. Bowel and peritoneum: There is thickening of the right colon.There is a small amount of ascites. Lymph nodes: No central or retroperitoneal adenopathy. Vessels: No infrarenal aortic aneurysm. PELVIS Reproductive organs: Unremarkable. Bladder: No abnormal wall thickening, accounting for underdistension. Pelvic lymph nodes: No pelvic adenopathy by size criteria. Bones: No aggressive osseous abnormality. Other: No significant ventral or inguinal hernia. IMPRESSION: 1. Right colonic thickening, which could indicate bowel injury in the appropriate clinical setting. 2. Small ascites. 3. Hepatic steatosis. Reviewed by: Soniya Corey MD on 10/02/2022 6:51 PM PDT Approved by: Soniya Corey MD on 10/02/2022 6:51 PM PDT Station ID: [id number]
[2022-10-02] MEDS ORDERED: PANTOPRAZOLE 40 MG VIAL IVP STA (19:03)
[2022-10-02] MEDS ORDERED: THIAMINE INJ 100 MG, FOLIC ACID INJ 1 MG in SODIUM CHLORIDE 0.9% 1,000 ML IV STA (19:03)
[2022-10-02 19:04] LABS: CALCIUM, IONIZED 0.87 mmol/L (1.15-1.33); VBG PH 7.523 (7.31-7.41)
--- NOTE | 2022-10-02 19:32 | HISTORY & PHYSICAL EXAMINATION ---
Chief Complaint - Chief Complaint Chief Complaint: AMS History of Present Illness - Admitted From Admitted From:: ER - History Obtained From Records Reviewed: Yes History obtained from: Staff, chart Exam Limitations: H&P was conducted via video remotely, using Access Cart. - History of Present Illness HPI Comment/Other: Unable to obtain history from pt d/t pt's clinical condition. History obtained from staff, chart. Patient is in OR. Physician is in OR. Pt's RAD TECH, Mary Ann Mohr, is at bedside. 32 yo M with h/o ETOH abuse with h/o ETOH W/D, alcoholic Hepatitis, Hyperthyroidism, GERD/Gastritis, Depression, Tobacco abuse presented to the ER via EMS for AMS. Pt was previously hospitalized at [facility] for ETOH W/D from 08/12 4-08/28/22. Per report, pt has been drinking ETOH heavily, including today. He had a fall 1 week ago and c/o L side chest/abdo pain. He had tripped and fell at home today after drinking ETOH and hit his head. His mother thought that he could be and called EMS and asked for CPR, but CPR not needed, as he was breathing and had a pulse. Pt has not been following up with doctors, as recommended. Pt currently drowsy, but arousable. He is occasionally opening his eyes, but not answering questions; unable to get any history from him. In the ER, HR 101, Spo2 86% RA-93% 3L NC O2, WBC 16.7, Hgb 11.2, MCV 96.5, Na 129, K 2.2, Mg 1.2, Ca, ionized 0.8, Bili 9.1, AST 175, ALT 219, NH3 903, TSH 1.6, ETOH 448, UDS pending. C-spine Xray: neg CT Head: NAD CT Chest: esophageal thickening, B/L pulmonary Madelyn CT Abdo: Hepatic Steatosis, small ascites Pt was given Mag SO4 2 gm, Protonix 40 mg IV, KCL 20 mEq IV, and Banana Bag in the ER. History - Past Medical History Cardiovascular: reports: None Respiratory: reports: None Neuro: reports: None Endocrine/Autoimmune: reports: None GI: reports: GERD : reports: None HEENT: reports: None Psych: reports: Depression Musculoskeletal: reports: None Derm: reports: None MRSA Hx?: No - POLST Patient has POLST: No Meds/Allgy - Home Medications Home Medications: Ambulatory Orders Medication Instructions Recorded Confirmed Omeprazole Magnesium 20 mg PO QDAC 07/02/22 08/26/22 Magnesium Citrate and Oxide 250 mg PO DAILY #30 cap 08/28/22 [Magnesium] Metoprolol Succinate [Toprol Xl] 50 mg PO DAILY #30 tab 08/28/22 Mv-Mn/Iron/FA/Om3/Dha/Epa/Hb/D 1 each PO DAILY #30 ea 08/28/22 [ Daily Duo Combo Pack] Potassium Chloride [K-Dur] 20 meq PO DAILY #15 tab 08/28/22 Thiamine [Vitamin B-1] 100 mg PO DAILY #30 tab 08/28/22 chlordiazePOXIDE [Librium] 10 mg PO UD #9 cap 08/28/22 - Allergies Allergies/Adverse Reactions: Allergies Allergy/AdvReac Type Severity Reaction Status Date / Time No Known Drug Allergies Allergy Verified 08/25/22 09:58 Review of Systems - All Other Systems All Other Systems: reports: Other (Unable to obtain ROS d/t patient's clinical condition.) Exam - Vital Signs Reviewed Vital Signs: Yes Vital Signs: Vital Signs x48h Temp Pulse Resp BP Pulse Ox O2 Flow Rate 10/02/22 19:00 101 H 11 L 125/76 93 3 10/02/22 18:30 98 8 L 121/79 97 3 10/02/22 18:00 97 10 L 124/86 H 94 3 10/02/22 17:46 36.5 C 101 H 14 124/86 H 86 L - Physical Exam General Appearance: positive: No acute distress, Lethargic, Other (Wearing O2 NC) Eyes Bilateral: positive: No scleral icterus Respiratory: positive: Other (Access cart stethoscope not working; per ER Provider: CTA B/L) Cardiovascular: positive: Other (Access cart stethoscope not working; per ER Provider: RR, Tachy, no murmurs) Abdomen: positive: Other (per ER Provider: non-distended, NT, Soft) Extremities: positive: Nml appearance Neurologic/Psychiatric: positive: Other (Lethargic; unable to do Neuro exam) Conclusion/Plan - Problem List (1) Alcohol intoxication Conclusion/Plan: AMS Alcohol Intoxication Frequent Falls ETOH abuse h/o ETOH W/D Alcoholic Hepatitis Tachycardia Leukocytosis Hypoxia -HR 101, Spo2 86% RA-93% 3L NC O2, WBC 16.7, Bili 9.1, AST 175, ALT 219, NH3 903, ETOH 448, UDS pending. -C-spine Xray: neg -CT Head: NAD -CT Chest: esophageal thickening, B/L pulmonary Madelyn -CT Abdo: Hepatic Steatosis, small ascites -Pt was given Mag SO4 2 gm, Protonix 40 mg IV, KCL 20 mEq IV, and Banana Bag in the ER. -admit to Med Tele -continue Neuro checks -keep NPO with low rate IVF until awake enough to protect area and eat -anti-emetic PRN -CIWA protocol with Ativan IV until more awake -SW consult -cessation counseling -CM consult to help arrange outpatient appts Hypokalemia Hypocalcemia Low Magnesium Hyponatremia -due to ETOH abuse/not eating -Na 129, K 2.2, Mg 1.2, Ca, ionized 0.8 -Pt was given Mag SO4 2 gm, KCL 20 mEq IV in the ER -further doses of Mag, K ordered; Ca Gluconate ordered -supplement PRN; monitor labs; telemetry Anemia, Macrocytic -Hgb 11.2, MCV 96.5 -check B12/Folate GERD/Gastritis -continue home medications/change to IV: Protonix Depression -recommend starting SSRI when pt awake -recommend Psychiatry consult Hyperthyroidism -TSH 1.6 -check free T4, free T3 Thrombocytopenia -Plts 46 -d/t ETOH abuse -monitor +Tobacco abuse -cessation counseling VTE Prophylaxis: SCDs only d/t thrombocytopenia Code Status: Full Code ~Jeanie Saldana MD Hospitalist Qualifiers: Complication of substance-induced condition: uncomplicated Qualified Code(s): F10.920 - Alcohol use, unspecified with intoxication, uncomplicated - Lab Results Fish Bones: 10/02/22 17:47 10/02/22 17:47
[2022-10-02] MEDS ORDERED: CALCIUM GLUCONATE IN NS 0.9% 2,000 MG/100 ML BAG IV ONE (19:53)
[2022-10-02] MEDS: SODIUM CHLORIDE 0.9% 1,000 ML IV SCH (20:12)
[2022-10-02] MEDS ORDERED: SODIUM CHLORIDE 0.9% 1,000 ML IV ONE (20:21)
[2022-10-02] MEDS ORDERED: THIAMINE 100 MG/1 ML 2 ML MDV ONE (20:41)
[2022-10-02] MEDS ORDERED: FOLIC ACID 5 MG/1 ML 10ML MDV ONE (20:41)
[2022-10-02] MEDS ORDERED: SODIUM CHLORIDE 0.9% 50 ML IV ONE (20:46)
[2022-10-02] MEDS ORDERED: SODIUM CHLORIDE 0.9% 500 ML IV ONE (20:49)
[2022-10-02 21:38] LABS: MUDS CUTOFF CONCENTRATIONS CUTOFF CONC BELOW:
[2022-10-02 21:42] LABS: GLUCOSE, URINE (UA) 100 mg/dL (NEGATIVE); KETONES,URINE (UA) TRACE mg/dL (NEGATIVE); LEUKOCYTE ESTERASE, URINE NEGATIVE (NEGATIVE); NITRITE,URINE NEGATIVE (NEGATIVE); OCCULT BLOOD,URINE NEGATIVE (NEGATIVE); PROTEIN,URINE TRACE mg/dL (NEGATIVE); UROBILINOGEN,URINE >=8.0 E.U./dL (NORMAL)
[2022-10-02 21:49] LABS: BILIRUBIN,URINE LARGE (NEGATIVE); CLARITY,URINE CLEAR (CLEAR); ICTOTEST,URINE POSITIVE
[2022-10-02 21:59] LABS: AMPHETAMINE SCREEN,URINE NEGATIVE (NEGATIVE); BARBITURATE SCREEN,UR NEGATIVE (NEGATIVE); BENZODIAZEPINES SCREEN, URINE POSITIVE (NEGATIVE); COCAINE SCREEN URINE NEGATIVE (NEGATIVE); METHADONE SCREEN, URINE NEGATIVE (NEGATIVE); METHAMPHETAMINES SCREEN, URINE NEGATIVE (NEGATIVE); OPIATE SCREEN, URINE NEGATIVE (NEGATIVE); OXYCODONE SCREEN, URINE NEGATIVE (NEGATIVE); PROPOXYPHENE SCREEN, URINE NEGATIVE (NEGATIVE); THC CANNABINOID SCREEN, URINE POSITIVE (NEGATIVE); TRICYCLIC ANTIDEPRESSANT,URINE NEGATIVE (NEGATIVE)
[2022-10-03] MEDS: SODIUM CHLORIDE FLUSH 0.9% 10 ML SYRINGE IVP SCH ×4 (00:31→23:33)
[2022-10-03] MEDS: NICOTINE 14 MG PATCH TOP SCH ×2 (00:31→10:27)
[2022-10-03] MEDS: SODIUM CHLORIDE FLUSH 0.9% 10 ML SYRINGE IVP PRN ×2 (00:46→17:04)
[2022-10-03] MEDS: ONDANSETRON 4 MG/2 ML VIAL IVP PRN ×2 (00:46→08:22)
[2022-10-03 05:10] LABS: BASOPHILS % (AUTO) 0.2 %; EOSINOPHILS % (AUTO) 0.1 %; HGB - HEMOGLOBIN 10.6 g/dL (14.0-18.0); LYMPHOCYTES # (AUTO) 1.3 10^3/uL (1.5-3.5); LYMPHOCYTES % (AUTO) 7.5 %; MEAN CORPUSCULAR HEMOGLOBIN 35.6 pg (27.0-31.0); MEAN CORPUSCULAR HGB CONC 36.6 g/dL (32.0-36.0); MEAN CORPUSCULAR VOLUME 97.3 fL (80.0-94.0); MEAN PLATELET VOLUME 10.6 fL (7.4-11.4); MONOCYTES # (AUTO) 1.2 10^3/uL (0.0-1.0); MONOCYTES % (AUTO) 6.5 %; NEUTROPHILS % (AUTO) 85.1 %; PLT - PLATELET COUNT 47 10^3/uL (130-450); RED BLOOD COUNT 2.98 10^6/uL (4.70-6.10); RED CELL DISTRIBUTION WIDTH 20.1 % (12.0-15.0); WHITE BLOOD COUNT 17.6 x10^3/uL (4.8-10.8)
[2022-10-03 05:16] LABS: SLIDE REVIEW? Indicated
[2022-10-03 05:35] LABS: PLATELET ESTIMATE, MANUAL DECREASED (<130,000) (NORMAL); PLATELET MORPHOLOGY NORMAL APPEARANCE (NORMAL); WBC MORPHOLOGY (MULTIPLE) NORMAL APPEARANCE (NORMAL)
[2022-10-03 05:38] LABS: ALBUMIN 2.3 g/dL (3.2-5.5); ALBUMIN/GLOBULIN RATIO 0.5 (1.0-2.2); BILIRUBIN,TOTAL 9.8 mg/dL (0.2-1.0); CALCIUM 7.2 mg/dL (8.5-10.3); CREATININE 0.4 mg/dL (0.6-1.2); MAGNESIUM 1.8 mg/dL (1.7-2.8); TOTAL PROTEIN 6.9 g/dL (6.7-8.2)
[2022-10-03 05:39] LABS: POTASSIUM 2.5 mmol/L (3.5-5.0)
[2022-10-03 05:47] LABS: FREE T3 2.51 pg/mL (2.5-3.9)
[2022-10-03 05:49] LABS: FREE T4 (FREE THYROXINE) 1.38 ng/dL (0.58-1.64)
--- NOTE | 2022-10-03 06:43 | PROVIDER PROGRESS NOTE ---
Environmental Journalist Note - Environmental Journalist Note Environmental Journalist Note: RN paged to report low potassium. concurrently noted low mag as well repleting both potassium and magnesium. Wagner Flores DO Internal Medicine [employer]
[2022-10-03] MEDS ORDERED: POTASSIUM CHLOR 10 MEQ/100 ML 10 MEQ/100 ML BAG IV SCH (07:00)
[2022-10-03] MEDS ORDERED: MAGNESIUM SULFATE 2 GRAM 2 GM/50 ML BAG IV ONE (08:00)
[2022-10-03] MEDS: PANTOPRAZOLE 40 MG VIAL IV SCH (08:21)
[2022-10-03] MEDS: POTASSIUM CHLORIDE 20 MEQ TABLET PO ONE ×2 (08:22→09:48)
[2022-10-03 09:38] LABS: CALCIUM, IONIZED 0.89 mmol/L (1.15-1.33); VBG PH 7.5 (7.31-7.41)
[2022-10-03] MEDS: POTASSIUM CHLOR 10 MEQ/100 ML 10 MEQ/100 ML BAG IV SCH ×3 (10:09→11:49)
[2022-10-03] MEDS ORDERED: CALCIUM CARBONATE CHEW 500 MG TABLET PO PRN (10:37)
[2022-10-03] MEDS: LACTULOSE 10 GM /15 ML UDC PO SCH (11:39)
--- NOTE | 2022-10-03 13:30 | PHARMACY PROGRESS NOTE ---
- Best Possible Medication History Admit Date and Time: 10/02/222004 Processed by: Pharmacy Medication History completed: Yes Patient Interview: Completed Secondary Source(s): Pharmacy records, Insurance records, Previous admit records As the person ultimately responsible for medication therapy, providers are able to order a medication from an existing home medication list in [facility] via the "Reconcile Routine" prior to Confirmation of that medication by customer support advisor. Such practice is discouraged except when the physician, in their clinical judgment, deems that a medical need exists for a medication without regard to previous use.
--- NOTE | 2022-10-03 14:14 | PROVIDER PROGRESS NOTE ---
Progress Note October 03, 2022 1:46 PM His main complaint has been dry heaving, nausea and vomiting. He is having occasional diarrhea, flatus. His belly is distended but it does not hurt. What hurts is his left upper quadrant/rib cage. His mom describes him having episodes of syncope. He and his mother describe them as sudden "fainting spells". He tells me that there associated with being acutely intoxicated. He has never had 1 when he was not drunk. With his last 1 he fell so hard against a railing that his left upper quadrant hurts, left rib cage hurts. That was about a week ago. He had another fall at home on the day of admission where he hit his head. He has been admitted in June of this year for alcohol withdrawal, then August of this year for alcohol withdrawal. With his June admission he went into SVT at a rate of 170 but deteriorated to a wide-complex monomorphic tachycardia consistent with V. tach. Nonsustained, asymptomatic. Echo showed no evidence of alcoholic cardiomyopathy. At that point in time he was having severe potassium depletion with a low calcium and low magnesium. He does not know why he drinks. He suspects that it is a reaction to his divorce. As his marriage was falling apart, he went from being "a normal walter" to drinking more and more heavily. Which of course only hasten the demise of his marriage because it gave his even more reasons to want to divorce him. He has been unable to break that cycle of drinking. He does want to live. He does want to maintain a relationship with his young son. And he is at a loss to help me understand why he continues to drink. "I do not know why I do this". Exam: Vitals temperature 36.3. Heart rate 120s at time. Blood pressure 120/60. Respirations 19. 4 L nasal cannula is resulting in 94% O2 sat. He is in mildly obese young white male, dense thick rosario, 6 foot tall, 90 kg. He appears very fatigued, pale but no tremulousness, sweats, delirium yet. He smells of alcohol. He is asking for ice water. He said even if he is going to have dry heaves he is rather have emesis of water and then have dry heaves. Neck is supple Lungs are clear. No crackles rhonchi wheezing or increased respiratory effort. Regular rate and rhythm that is consistently tachycardic above 109. No murmur. Abdomen is bloated, distended, minimal, minimal bowel sounds. He has tenderness in the left upper quadrant where the floating rib is. No rebound or guarding. Extremities are without edema. Full range of motion. Labs: Sodium 132, potassium 2.5, chloride 88. Glucose 103. BUN 6, creatinine 0.4. When he was admitted potassium was 2.2, calcium 7.0, phosphorus 2.2, magnesium 1.2. All of these electrolytes have been replaced and he continues to get 40 more milliequivalents of potassium at my order. Bilirubin was 9.1, now at 9.8. AST was 175, now 165. ALT was 32, now 31. Ammonia level is 90.3. Free T4 is normal, free T3 is normal. CBC with elevated white cell count of 17.6. He was admitted at 16.7. Hemoglobin has come down a bit. He was 11.2 and is now 10.6. Hematocrit was 30.7 now 29. Platelets were 49 now 47. INR was 1.6. Assessment/plan 1. Acute alcohol intoxication with alcoholic hepatitis. At this point in time we are supporting him with IV fluids, IV thiamine, CIWA protocol. He is not going through withdrawal yet. But he knows that this is going to start happening if we keep him here long enough. Plan: He is asking for p.o. intake. I suppose I am switching IV thiamine to p.o. thiamine and folate. Start clear liquids. He is dying for ice water with ice Continue to monitor his LFTs on a daily basis 2. Nausea and vomiting secondary to #1. Again, supporting him with IV fluids, antiemetics in the form of Zofran 4 mg OTD every 4 hours as needed or Zofran 4 mg IV push every 6 hours as needed. He is also on Protonix 40 mg IV push daily.On examination his belly is distended, but soft. Very hypoactive bowel sounds. Having diarrhea. Symptoms are all suggestive of ileus but the CAT scan does not confirm that. Plan: For complaints of indigestion with this and adding Tums 500 mg p.o. 4 times daily as needed indigestion. I will also advance diet at his request. I told him it will be clear liquids with ice water. But I will give him much more than that. 3. Alcoholic cirrhosis. On examination he is not edematous. No anasarca. Belly is distended but I think it is because of ileus due to his bowels. Ammonia level is high and he does not appear encephalopathic. Lab work shows an elevated ammonia level. Macrocytosis. Thrombocytopenia. (CT of the abdomen does not show hepatosplenomegaly). Plan: Lactulose 10 g p.o. daily 4. Leukocytosis. There is no fever, CT of the abdomen has an enlarged liver with cirrhosis, gallbladder and biliary tree are within normal limits. No splenomegaly. No hydronephrosis. Thickening of the right colon with a small amount of ascites. But no true colitis. Bladder appears normal. Under distended. Urinalysis has glucosuria, bilirubinuria but there is no infection. Chest CT shows new thickening of the distal esophagus which could indicate esophageal injury. Bilateral pulmonary atelectasis versus pneumonia but no consolidation, pleural effusions. The pneumonia is described as a mild groundglass density within the bilateral lower lobes. As such, as a source of infection causing the leukocytosis, nothing is definitive. The groundglass opacities in his lungs could be simple atelectasis. He does not have a UTI. Possible focal colitis of the right bowel versus trauma. But no diverticulitis or other colitis. Plan: Continue to monitor for signs and symptoms of infection. If he does spike a temp, I would start empiric antibiotics. 5. Hypokalemia and low chloride. And low calcium, magnesium, phosphorus. My suspicion is all of this is from the nausea and vomiting and the diarrhea. He is losing electrolytes faster than we can replace. Plan: Continue to replace potassium. His magnesium and phosphorus have normalized. He does not like the potassium riders IV but I explained to him that with his nausea and vomiting, he is not can to keep potassium down. 6. Syncope. Not a very clear history when I talk to him. He says that there is sudden onset. He has no warning. But both of them have occurred when he was severely, severely intoxicated. He does not remember much about them. He just remembers waking up on the floor. There is no warning. No chest pain or palpitations. There is no biting of the tongue, and no seizure movements with this. 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 But his echocardiogram was normal. The arrhythmia was felt to be secondary to the electrolyte derangement. We will continue to monitor for signs and symptoms of arrhythmia which include syncope, change in blood pressure, etc. 7. GERD/gastritis. Already on proton pump inhibitor. Tums being added. 8. Depression/adjustment disorder. I do not know how much starting an SSRI is can help him. This would be like adding a cup of water to the ocean. I will start him on Zoloft 25 mg a day. Most common side effects will be nausea and headache. He is already nauseated with emesis. If this exacerbates his nausea and vomiting I will stop it. I have strongly encouraged him to find mental health providers they can get him through this. I told him that I feel sorrow for him. He is a young man. A very serious problem that could turn terminal for him. He may not live to see his 40s. I shared that with him. I have also strongly encouraged him to follow-up with the mental health provider not only for the Zoloft to try and gain insight as to why he does drink. If he can get that insight may be it would be able to help him control his behavior better. 9. Macrocytic anemia Free T4, free T3, TSH all normal. B12 level was normal in June 2022. Folate was normal in June and 2022. Most likely this is direct toxicity of alcohol on bone marrow. Plan: P.o. thiamine 100 mg daily. 10. Hyponatremia. Due to alcohol abuse, lack of p.o. intake. Dehydration. I will continue IV fluids for hydration, advance diet to clear liquids from n.p.o., and watch for signs and symptoms of withdrawal. Sodium has slightly improved this morning to be 132. He was 129 yesterday.I am starting a serotonin reuptake inhibitor. That can cause hyponatremia as well. So his sodium will need to be monitored carefully. 11. Hyperthyroidism with a TSH of 1.6. Free T4 is 1.38. High normal is 1.64. Free T3 is 2.51. Low normal is 2.5. Unclear why his TSH is suppressed if his free T3 and free T4 are normal
[2022-10-03] MEDS: SODIUM CHLORIDE 0.9% 1,000 ML IV SCH (15:09)
[2022-10-04 05:18] LABS: BASOPHILS % (AUTO) 0.2 %; EOSINOPHILS % (AUTO) 0.2 %; HCT - HEMATOCRIT 27.1 % (42.0-52.0); HGB - HEMOGLOBIN 9.8 g/dL (14.0-18.0); LYMPHOCYTES # (AUTO) 0.8 10^3/uL (1.5-3.5); LYMPHOCYTES % (AUTO) 5.1 %; MEAN CORPUSCULAR HEMOGLOBIN 35.6 pg (27.0-31.0); MEAN CORPUSCULAR HGB CONC 36.2 g/dL (32.0-36.0); MEAN CORPUSCULAR VOLUME 98.5 fL (80.0-94.0); MEAN PLATELET VOLUME 10.8 fL (7.4-11.4); MONOCYTES % (AUTO) 6.2 %; NEUTROPHILS # (AUTO) 13.5 10^3/uL (1.5-6.6); NEUTROPHILS % (AUTO) 87.7 %; RED BLOOD COUNT 2.75 10^6/uL (4.70-6.10); RED CELL DISTRIBUTION WIDTH 20.8 % (12.0-15.0); WHITE BLOOD COUNT 15.3 x10^3/uL (4.8-10.8)
[2022-10-04 05:25] LABS: PLT - PLATELET COUNT 32 10^3/uL (130-450); SLIDE REVIEW? Indicated
[2022-10-04 05:27] LABS: ALBUMIN 2.4 g/dL (3.2-5.5); ALBUMIN/GLOBULIN RATIO 0.5 (1.0-2.2); BILIRUBIN,TOTAL 12.8 mg/dL (0.2-1.0); CALCIUM 7.6 mg/dL (8.5-10.3); CREATININE 0.4 mg/dL (0.6-1.2); MAGNESIUM 1.4 mg/dL (1.7-2.8); TOTAL PROTEIN 6.9 g/dL (6.7-8.2)
[2022-10-04 05:28] LABS: POTASSIUM 2.4 mmol/L (3.5-5.0)
[2022-10-04] MEDS ORDERED: POTASSIUM CHLORIDE 20 MEQ TABLET PO STA (05:35)
[2022-10-04] MEDS ORDERED: POTASSIUM CHLOR 10 MEQ/100 ML 10 MEQ/100 ML BAG IV ONE (05:35)
[2022-10-04] MEDS ORDERED: MAGNESIUM SULFATE 2 GRAM 2 GM/50 ML BAG IV ONE (05:35)
[2022-10-04 05:46] LABS: PLATELET ESTIMATE, MANUAL DECREASED (<130,000) (NORMAL)
[2022-10-04 05:53] LABS: FOLATE 1.85 ng/mL (5.90 - >24.8)
[2022-10-04] MEDS: POTASSIUM CHLOR 10 MEQ/100 ML 10 MEQ/100 ML BAG IV SCH ×4 (08:34→13:21)
[2022-10-04] MEDS: LACTULOSE 10 GM /15 ML UDC PO SCH (08:54)
[2022-10-04] MEDS: NICOTINE 14 MG PATCH TOP SCH (08:54)
[2022-10-04] MEDS: PANTOPRAZOLE 40 MG VIAL IV SCH (08:55)
[2022-10-04] MEDS: SERTRALINE 25 MG TABLET PO SCH (08:55)
[2022-10-04] MEDS: SODIUM CHLORIDE FLUSH 0.9% 10 ML SYRINGE IVP SCH ×2 (08:55→15:57)
[2022-10-04] MEDS ORDERED: POTASSIUM CHLOR 10 MEQ/100 ML 10 MEQ/100 ML BAG IV SCH (09:00)
[2022-10-04 09:27] LABS: CALCIUM, IONIZED 0.96 mmol/L (1.15-1.33); VBG PH 7.526 (7.31-7.41)
[2022-10-04 09:33] LABS: CALCIUM 7.7 mg/dL (8.5-10.3); CREATININE 0.5 mg/dL (0.6-1.2)
[2022-10-04 09:35] LABS: POTASSIUM 2.5 mmol/L (3.5-5.0)
[2022-10-04] MEDS: LORazepam 2 MG/ML VIAL IVP PRN (10:37)
[2022-10-04] MEDS: ONDANSETRON 4 MG/2 ML VIAL IVP PRN (10:37)
[2022-10-04] MEDS: SODIUM CHLORIDE 0.9% 1,000 ML IV SCH (11:11)
[2022-10-04] MEDS: THIAMINE 100 MG TABLET PO SCH (14:05)
--- NOTE | 2022-10-04 16:48 | PROVIDER PROGRESS NOTE ---
Progress Note October 04, 2022 4:45 PM He has been in his bed all day long. Really does not want to get out of bed. He has the blinds drawn, lights off, but he does have the TV running. He prefers to lay on his back, with a cold washcloth over his forehead and over his eyes to cover his face. He is miserable with nausea, but he has less and less episodes of vomiting. He is consistently tachycardic and is up to 123 this afternoon. Slightly diaphoretic. Not hypertensive. He is 87 to 88% on room air. In spite of his nausea, he is eating. He ate his snack last night. 50% of breakfast, and 50% of lunch.But he is on a clear liquid diet. He is asking if I can advance him to regular food.He also states he hates the potassium supplementation when it is oral. Wonders if he could change it to something else. Exam: Temperature 37.1, heart rate 123, blood pressure 126/71, respirations 14. 87% on room air. He is a morbidly obese white male with a dense heavy dark rosario, low hoarse voice. 90 kg and 6 foot tall Sclera is icteric, conjunctiva red and boggy, no facial asymmetry and speech is normal Neck is supple with shotty adenopathy Coarse upper airway sounds, occasional rhonchi that are faint. But they clear with a good deep cough when I have him do so. No respiratory distress Regular rate and rhythm that is tachycardic Obese abdomen that is Protuberant,soft, nontender and hypoactive bowel sounds. Even when I palpate his right upper quadrant he says it does not bother him too much. I do not feel a fluid wave. Extremities have trace edemaAnd skin is warm and dry Neurologically he is alert, oriented to person place and time no focal deficits. He denies hallucinations.Affect is flat, speech is slowed.No agitation.No tremors Lab: Sodium 128. He has been hyponatremic since admission and varying between 128-1 32. He is hypokalemic again. 2.5 in spite of 40 mEq riders. BUN is 6, creatinine 0.5. Glucose 126. Magnesium 1.9. Vitamin B12 is 2131, folate is 1.85, free T4 is 1.38, free T3 is 2.51. White cell count at 15.3 is still elevated. About the same since admission. Hemoglobin is 9.8. He is drifted down from 11.2 on admission. Platelets have come down to 32 where he was 49 on admission. Assessment/plan 1. Acute alcohol intoxication with alcoholic hepatitis. It is now on his third day of admission. I would think that his alcohol level is 0. I have been supporting him with IV fluids, IV thiamine, CIWA protocol. Tachycardia indicates he may be going through withdrawal now.He needed 1 mg of Ativan this morning. But so far his scoring has not been high enough to require more Ativan. He was drinking 1/5 of vodka a day. On the he did ask for ice chips and clear liquids in spite of his nausea and vomiting. Plan: I will advance his diet to a low-salt diet. Continue p.o. thiamine and folate. Continue to monitor his LFTs on a daily basis 2. Nausea and vomiting secondary to #1. Again, supporting him with IV fluids, antiemetics in the form of Zofran 4 mg OTD every 4 hours as needed or Zofran 4 mg IV push every 6 hours as needed. He is also on Protonix 40 mg IV push daily.Examination is unchanged from yesterday to today. Hypoactive bowel sounds and a protuberant belly. Nontender.The Tums has helped him quite a bit with indigestion. Plan: Advance diet to a low-salt regular diet 3. Alcoholic cirrhosis with thrombocytopenia On examination he is not edematous. No anasarca. Belly is distended but I think it is because of ileus due to his bowels. Ammonia level was high but he does not appear encephalopathic. Lab work shows an elevated ammonia level. Macrocytosis. Thrombocytopenia. (CT of the abdomen does not show hepatosplenomegaly). In using a calculator for model for end-stage liver disease score in adults, I used a creatinine of 1.0. A bilirubin of 12.8. An INR of 1.6. His MELD score is 21.I did start lactulose this morning. I did it mainly because of the high ammonia level not because he was encephalopathic. The only thing at that I can see that might be manifestation of encephalopathy is a very flat affect. There does not seem to be much change between yesterday and today. I did reach out to social work to see if there is anything we can do for this gentleman. He is at high risk for dying of his alcoholic liver disease because of continued severe alcohol abuse. We discussed the fact that this is his third admission in 3 months. He keeps on insisting that he can do this by himself. He has refused to go to rehab, refused to go to counseling, and keeps on insisting that he can do this culture acute. We are considering a DCR evaluation once he is done with his acute medical problems of the alcoholic hepatitis, nausea and vomiting. Plan:Continue lactulose as already ordered at 10 g a day. Aim for a DCR evaluation next week (today is Friday) around Friday if he is done with his acute medical problems. I will aim for a normal AST and ALT. A salt restricted diet that he can keep down. No diarrhea. And no withdrawal. 4. Leukocytosis. There is no fever, No cough or congestion, no abdominal pain, no urgency, frequency, dysuria. CT of the abdomen has an enlarged liver with cirrhosis, gallbladder and biliary tree are within normal limits. No splenomegaly. No hydronephrosis. Thickening of the right colon with a small amount of ascites. But no true colitis. Bladder appears normal. Under distended. Urinalysis has glucosuria, bilirubinuria but there is no infection. Chest CT shows new thickening of the distal esophagus which could indicate esophageal injury. Bilateral pulmonary atelectasis versus pneumonia but no consolidation, pleural effusions. The pneumonia is described as a mild groundglass density within the bilateral lower lobes. As such, in looking for a source of infection causing the leukocytosis, nothing is definitive. The groundglass opacities in his lungs could be simple atelectasis. He does not have a UTI. Possible focal colitis of the right bowel versus trauma. But no diverticulitis or other colitis. Plan: Continue to monitor for signs and symptoms of infection. If he does spike a temp, I would start empiric antibiotics. 5. Hypokalemia and low chloride. And low calcium, magnesium, phosphorus. My suspicion is all of this is from the nausea and vomiting and the diarrhea. He is losing electrolytes faster than we can replace.This morning's potassium is low. I supplemented with p.o. potassium (which he now hates). I am rechecking a potassium this afternoon.I told him that the reason I switch to p.o. potassium was at his request. He hated the potassium riders yesterday. He now asked if there is another potassium replacement I can use. Plan: Continue to replace potassium. His magnesium and phosphorus have normalized. 6. Syncope. Not a very clear history when I talk to him. He says that there is sudden onset. He has no warning. But both of them have occurred when he was severely, severely intoxicated. He does not remember much about them. He just remembers waking up on the floor. There is no warning. No chest pain or palpitations. There is no biting of the tongue, and no seizure movements with this. 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 But his echocardiogram was normal. The arrhythmia was felt to be secondary to the electrolyte derangement. I have had him on telemetry to monitor for signs and symptoms of arrhythmia which include syncope, change in blood pressure, etc.. There have not been any reported arrhythmias 7. GERD/gastritis. Already on proton pump inhibitor. Tums being added. 8. Depression/adjustment disorder. I do not know how much starting an SSRI is can help him. This would be like adding a cup of water to the ocean. I will start him on Zoloft 25 mg a day. Most common side effects will be nausea and headache. He is already nauseated with emesis. If this exacerbates his nausea and vomiting I will stop it. I have strongly encouraged him to find mental health providers they can get him through this. I told him that I feel sorrow for him. He is a young man. A very serious problem that could turn terminal for him. He may not live to see his 40s. I shared that with him. I have also strongly encouraged him to follow-up with the mental health provider not only for the Zoloft to try and gain insight as to why he does drink. If he can get that insight may be it would be able to help him control his behavior better. Social work and I feel that we will be ordering a DCR evaluation when he is done with his acute medical problems. 9. Macrocytic anemia Free T4, free T3, TSH all normal. B12 level was normal in June 2022. Folate was normal in June and 2022. Most likely this is direct toxicity of alcohol on bone marrow. Plan: P.o. thiamine 100 mg daily. 10. Hyponatremia. Due to alcohol abuse, lack of p.o. intake. Dehydration. I will continue IV fluids for hydration, And diet is being advanced to a low-salt 1 today. Laboratory Tests 10/03/22 10/04/22 10/04/22 05:00 05:02 09:14 Sodium 132 L 129 L 128 L I did start a serotonin reuptake inhibitor 10/04. That can cause hyponatremia as well. So his sodium will need to be monitored carefully. 11. Hyperthyroidism with a TSH of 1.6. Free T4 is 1.38. High normal is 1.64. Free T3 is 2.51. Low normal is 2.5. Unclear why his TSH is suppressed if his free T3 and free T4 are normal
[2022-10-04 17:08] LABS: CALCIUM 7.7 mg/dL (8.5-10.3); CREATININE 0.5 mg/dL (0.6-1.2); POTASSIUM 2.6 mmol/L (3.5-5.0)
[2022-10-05] MEDS: SODIUM CHLORIDE FLUSH 0.9% 10 ML SYRINGE IVP SCH ×3 (01:24→17:09)
[2022-10-05 06:13] LABS: BASOPHILS % (AUTO) 0.1 %; EOSINOPHILS % (AUTO) 0.3 %; HCT - HEMATOCRIT 25.2 % (42.0-52.0); HGB - HEMOGLOBIN 9.1 g/dL (14.0-18.0); MEAN CORPUSCULAR HEMOGLOBIN 36.3 pg (27.0-31.0); MEAN CORPUSCULAR HGB CONC 36.1 g/dL (32.0-36.0); MEAN CORPUSCULAR VOLUME 100.4 fL (80.0-94.0); MONOCYTES # (AUTO) 0.9 10^3/uL (0.0-1.0); MONOCYTES % (AUTO) 6.3 %; NEUTROPHILS # (AUTO) 11.7 10^3/uL (1.5-6.6); NEUTROPHILS % (AUTO) 85.7 %; RED BLOOD COUNT 2.51 10^6/uL (4.70-6.10); RED CELL DISTRIBUTION WIDTH 20.4 % (12.0-15.0); WHITE BLOOD COUNT 13.6 x10^3/uL (4.8-10.8)
[2022-10-05 06:16] LABS: MEAN PLATELET VOLUME 11.6 fL (7.4-11.4)
[2022-10-05 06:17] LABS: PLT - PLATELET COUNT 29 10^3/uL (130-450); SLIDE REVIEW? Indicated
[2022-10-05 06:26] LABS: ALBUMIN 2.3 g/dL (3.2-5.5); ALBUMIN/GLOBULIN RATIO 0.5 (1.0-2.2); ALKALINE PHOSPHATASE 184 IU/L (42-121); ALT ALANINE AMINOTRANSFERASE 29 IU/L (10-60); AST ASPARTATE AMINOTRANSFERASE 132 IU/L (10-42); BILIRUBIN,TOTAL 14.6 mg/dL (0.2-1.0); BUN - BLOOD UREA NITROGEN < 5 mg/dL (6-20); CALCIUM 7.8 mg/dL (8.5-10.3); CARBON DIOXIDE - CO2 31 mmol/L (21-32); CHLORIDE 90 mmol/L (101-111); CREATININE 0.4 mg/dL (0.6-1.2); GFR - MDRD 251 (>89); GLUCOSE 101 mg/dL (70-100); MAGNESIUM 1.7 mg/dL (1.7-2.8); POTASSIUM 2.6 mmol/L (3.5-5.0); SODIUM 131 mmol/L (135-145); TOTAL PROTEIN 6.5 g/dL (6.7-8.2)
[2022-10-05] MEDS: SODIUM CHLORIDE 0.9% 1,000 ML IV SCH (06:47)
[2022-10-05 07:01] LABS: PLATELET ESTIMATE, MANUAL DECREASED (<130,000) (NORMAL)
[2022-10-05] MEDS: SERTRALINE 25 MG TABLET PO SCH (08:37)
[2022-10-05] MEDS: THIAMINE 100 MG TABLET PO SCH (08:37)
[2022-10-05] MEDS: PANTOPRAZOLE 40 MG TABLET PO SCH (08:37)
[2022-10-05] MEDS: NICOTINE 14 MG PATCH TOP SCH (08:38)
[2022-10-05] MEDS: LACTULOSE 10 GM /15 ML UDC PO SCH (08:38)
[2022-10-05 09:41] LABS: VBG PH 7.523 (7.31-7.41)
[2022-10-05] MEDS ORDERED: POTASSIUM PHOSPHATE 15 MMOL in SODIUM CHLORIDE 0.9% 250 ML IV ONE ×2 (12:00→19:00)
--- NOTE | 2022-10-05 16:05 | PROVIDER PROGRESS NOTE ---
Progress Note October 05, 2022 3:59 PM Mr. Hurt is up and about in his room. Going to the bathroom without emesis. He does not like the IV pole that he has to take with him. He is on IV fluids. He is not agitated, he is not tremulous, but he is consistently tachycardic. I ask him how he feels with regards to withdrawal he goes "I feel like shit". He is eating 75 to 100% of the food we give him. He would like to try regular meal for lunch. I offered to stop the IV fluids and he is is wait till after lunch. He does know how will settle on his stomach. Active Medications Calcium Carbonate/Glycine (Calcium Carbonate Chew 500 Mg Tablet) 500 mg PO QID PRN PRN Reason: INDIGESTION Sodium Chloride (Normal Saline 0.9%) 1,000 mls @ 50 mls/hr IV .Q20H [facility] Last Admin: 10/05/22 06:47 Dose: 50 mls/hr Potassium Phosphate 15 mmol/ (Sodium Chloride) 255 mls @ 42.5 mls/hr IV ONCE ONE Stop: 10/06/22 00:59 Potassium Chloride (Potassium Chloride) 10 meq in 100 mls @ 100 mls/hr IV Q1H [facility] Stop: 10/05/22 17:59 Lactulose (Lactulose 10 Gm /15 Ml Udc) 10 gm PO DAILY [facility] Last Admin: 10/05/22 08:38 Dose: 10 gm Lorazepam (Lorazepam 2 Mg/Ml Vial) 1 mg IVP Q30M PRN; Protocol PRN Reason: CIWA >8 Last Admin: 10/04/22 10:37 Dose: 1 mg Nicotine (Nicotine 14 Mg Patch) 1 patch TOP DAILY [facility] Last Admin: 10/05/22 08:38 Dose: 1 patch Ondansetron HCl (Ondansetron 4 Mg/2 Ml Vial) 4 mg IVP Q6HR PRN PRN Reason: Nausea / Vomiting Last Admin: 10/04/22 10:37 Dose: 4 mg Pantoprazole Sodium (Pantoprazole 40 Mg Tablet) 40 mg PO QDAC [facility] Last Admin: 10/05/22 08:37 Dose: 40 mg Sertraline HCl (Sertraline 25 Mg Tablet) 25 mg PO DAILY [facility] Last Admin: 10/05/22 08:37 Dose: 25 mg Sodium Chloride (Sodium Chloride Flush 0.9% 10 Ml Syringe) 10 ml IVP PRN PRN PRN Reason: NEEDED PER PROVIDER ORDERS Last Admin: 10/03/22 17:04 Dose: 10 ml Sodium Chloride (Sodium Chloride Flush 0.9% 10 Ml Syringe) 10 ml IVP 0100,0900,1700 [facility] Last Admin: 10/05/22 08:38 Dose: Not Given Thiamine HCl (Thiamine 100 Mg Tablet) 100 mg PO DAILY [facility] Last Admin: 10/05/22 08:37 Dose: 100 mg Omeprazole Magnesium 20 mg PO QDAC 07/02/22 Exam: Temperature 37.3. Heart rate 110. Blood pressure 117/60. Respirations 14. 97% on room air. 6 foot tall, 90 kg. He is a tall white male who looks stated age, does look tired and fatigued, but speech is lucid, good historian. Bermeo and mustache. Neck has shotty adenopathy but no bruits or goiter Lungs are clear to auscultation and percussion without any increased respiratory effort Regular rate and rhythm is tachycardic Abdomen is obese, soft, firm abdominal musculature, protuberant, nontender, normal bowel sounds and last bowel movement today Extremities are without edema Neurologically he is alert to person, place, time. Situation. He is able to go from supine to sitting, sitting to standing without any help other than trying to reposition the IV pole. No focal deficits. No ataxia. Lab: He is consistently getting potassium riders. Even with this his potassium is 2.6 today. Sodium 131, BUN less than 5, creatinine 0.4. Phosphorus is 1.0. Total bili climbs to 14.6. AST 132.On admission he was 175. ALT has been normal. White cell count 13.6, hemoglobin 9.1. He was admitted at 11.2. Hematocrit 35.2. Platelets continue to drop and he is 29 today. Yesterday he was 32, and admission he was 49. Assessment/plan 1. Acute alcohol intoxication with alcoholic hepatitis. It is now on his 4th day of admission. I have been supporting him with IV fluids, IV thiamine, CIWA protocol. I changed the IV thiamine to p.o. thiamine yesterday. Tachycardia indicates he may be going through withdrawal now. So far he is only received 1 mg of Ativan on October 04. He does not score high enough on the CIWA protocol to get it more often.. He was drinking 1/5 of vodka a day. On the he did ask for ice chips and clear liquids in spite of his nausea and vomiting.He is tolerating that well. He is now asking if he can get a regular diet and I ordered that for today. Plan: I will advance his diet to a low-salt diet. Continue p.o. thiamine and folate. Continue to monitor his LFTs on a daily basis He tells me that if he is able to keep his food down today, he is amenable to pushing p.o. intake so that I can stop the IV fluids and he can get rid of the IV pole I will add Ativan 0.5 mg IV push every 6 hours on a fixed schedule 2. Nausea and vomiting secondary to #1. Again, supporting him with IV fluids, antiemetics in the form of Zofran 4 mg OTD every 4 hours as needed or Zofran 4 mg IV push every 6 hours as needed. He is also on Protonix 40 mg IV push da jarrett.Examination is unchanged For the last 3 days. Hypoactive bowel sounds and a protuberant belly. Nontender.The Tums has helped him quite a bit with indigestion. Plan: Advance diet to a low-salt regular diet 3. Alcoholic cirrhosis with thrombocytopenia On examination he is not edematous. No anasarca. Belly is distended but I think it is because of ileus due to his bowels. Ammonia level was high but he does not appear encephalopathic. Lab work shows an elevated ammonia level. Macrocytosis. Thrombocytopenia. (CT of the abdomen does not show hepatosplenomegaly). In using a calculator for model for end-stage liver disease score in adults, I used a creatinine of 1.0. A bilirubin of 12.8. An INR of 1.6. His MELD score is 21. I did start lactulose October 03.. I did it mainly because of the high ammonia level not because he was encephalopathic. The only thing at that I can see that might be manifestation of encephalopathy is a very flat affect. There does not seem to be much change With the use of the lactulose. I did reach out to social work to see if there is anything we can do for this gentleman. He is at high risk for dying of his alcoholic liver disease because of continued severe alcohol abuse. We discussed the fact that this is his third admission in 3 months. He keeps on insisting that he can do this by himself. He has refused to go to rehab, refused to go to counseling, and keeps on insisting that he can do this culture acute. We are considering a DCR evaluation once he is done with his acute medical problems of the alcoholic hepatitis, nausea and vomiting.If he is medically stable by October 07, I will be asking for the DCR evaluation then. Plan:Continue lactulose as already ordered at 10 g a day. Aim for a DCR evaluation next week around October 07 if he is done with his acute medical problems. I will aim for a normal AST and ALT. A salt restricted diet that he can keep down. No diarrhea. And no withdrawal. 4. Leukocytosis. There is no fever, No cough or congestion, no abdominal pain, no urgency, frequency, dysuria. CT of the abdomen has an enlarged liver with cirrhosis, gallbladder and biliary tree are within normal limits. No splenomegaly. No hydronephrosis. Thickening of the right colon with a small amount of ascites. But no true colitis. Bladder appears normal. Under distended. Urinalysis has glucosuria, bilirubinuria but there is no infection. Chest CT shows new thickening of the distal esophagus which could indicate esophageal injury. Bilateral pulmonary atelectasis versus pneumonia but no consolidation, pleural effusions. The pneumonia is described as a mild groundglass density within the bilateral lower lobes. As such, in looking for a source of infection causing the leukocytosis, nothing is definitive. The groundglass opacities in his lungs could be simple atelectasis. He does not have a UTI. Possible focal colitis of the right bowel versus trauma. But no diverticulitis or other colitis. Plan: Continue to monitor for signs and symptoms of infection. If he does spike a temp, I would start empiric antibiotics. 5. Hypokalemia and low chloride. And low calcium, magnesium, phosphorus. My suspicion is all of this is from the nausea and vomiting and the diarrhea. He is losing electrolytes faster than we can replace.This morning's potassium is low. I supplemented with p.o. potassium (which he now hates). In spite of frequent supplementation on a daily basis, he still has low potassium and low phosphorus today. Plan: 2 bags of potassium phosphate followed by 210 mEq bags of potassium riders. Recheck BMP and phosphorus in the morning 6. Syncope. Not a very clear history when I talk to him. He says that there is sudden onset. He has no warning. But both of them have occurred when he was severely, severely intoxicated. He does not remember much about them. He just remembers waking up on the floor. There is no warning. No chest pain or palpitations. There is no biting of the tongue, and no seizure movements with this. 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 But his echocardiogram was normal. The arrhythmia was felt to be secondary to the electrolyte derangement. I have had him on telemetry to monitor for signs and symptoms of arrhythmia which include syncope, change in blood pressure, etc.. There have not been any reported arrhythmias 7. GERD/gastritis. Already on proton pump inhibitor. Tums being added. 8. Depression/adjustment disorder. I do not know how much starting an SSRI is can help him. This would be like adding a cup of water to the ocean. I will start him on Zoloft 25 mg a day. Most common side effects will be nausea and headache. He is already nauseated with emesis. If this exacerbates his nausea and vomiting I will stop it. I have strongly encouraged him to find mental health providers they can get him through this. I told him that I feel sorrow for him. He is a young man. A very serious problem that could turn terminal for him. He may not live to see his 40s. I shared that with him. I have also strongly encouraged him to follow-up with the mental health provider not only for the Zoloft to try and gain insight as to why he does drink. If he can get that insight may be it would be able to help him control his behavior better. Social work and I feel that we will be ordering a DCR evaluation when he is done with his acute medical problems.This will be addressed on October 07 9. Macrocytic anemia Free T4, free T3, TSH all normal. B12 level was normal in June 2022. Folate was normal in June and 2022. Most likely this is direct toxicity of alcohol on bone marrow. Plan: P.o. thiamine 100 mg daily. 10. Hyponatremia. Due to alcohol abuse, lack of p.o. intake. Dehydration. I will continue IV fluids for hydration, And diet is being advanced to a low-salt 1 today. Laboratory Tests 10/03/22 10/04/22 10/04/22 05:00 05:02 09:14 Sodium 132 L 129 L 128 L Laboratory Tests 10/05/22 05:29 Sodium 131 L I did start a serotonin reuptake inhibitor 10/04. That can cause hyponatremia as well. So his sodium will need to be monitored carefully. 11. Hyperthyroidism with a TSH of 1.6. Free T4 is 1.38. High normal is 1.64. Free T3 is 2.51. Low normal is 2.5. Unclear why his TSH is suppressed if his free T3 and free T4 are normal
[2022-10-05] MEDS: POTASSIUM CHLOR 10 MEQ/100 ML 10 MEQ/100 ML BAG IV SCH ×2 (17:08→18:21)
[2022-10-05] MEDS: LORazepam 2 MG/ML VIAL IVP SCH ×2 (17:09→23:35)
[2022-10-06] MEDS: SODIUM CHLORIDE FLUSH 0.9% 10 ML SYRINGE IVP SCH ×2 (00:13→08:04)
[2022-10-06] MEDS ORDERED: oxyCODONE 5 MG TABLET PO SCH (01:00)
[2022-10-06 05:09] LABS: BUN - BLOOD UREA NITROGEN < 5 mg/dL (6-20); CALCIUM 7.6 mg/dL (8.5-10.3); CARBON DIOXIDE - CO2 29 mmol/L (21-32); CHLORIDE 91 mmol/L (101-111); CREATININE 0.4 mg/dL (0.6-1.2); GFR - MDRD 251 (>89); GLUCOSE 103 mg/dL (70-100); SODIUM 130 mmol/L (135-145)
[2022-10-06 05:10] LABS: POTASSIUM 2.4 mmol/L (3.5-5.0)
[2022-10-06] MEDS: LORazepam 2 MG/ML VIAL IVP SCH (05:21)
[2022-10-06] MEDS: PANTOPRAZOLE 40 MG TABLET PO SCH (06:18)
[2022-10-06] MEDS: LORazepam 2 MG/ML VIAL IVP PRN (07:58)
[2022-10-06] MEDS: NICOTINE 14 MG PATCH TOP SCH (08:03)
[2022-10-06] MEDS: LACTULOSE 10 GM /15 ML UDC PO SCH (08:03)
[2022-10-06] MEDS: SERTRALINE 25 MG TABLET PO SCH (08:03)
[2022-10-06] MEDS: THIAMINE 100 MG TABLET PO SCH (08:03)
[2022-10-06 08:18] VITALS: BP 103/51
--- NOTE | 2022-10-06 08:26 | Discharge Plan ---
Discharge Plan Problem Reviewed?: Yes Disposition: Against Medical Advice Condition: Fair Prescriptions: Potassium Chloride [K-Dur] 20 meq PO TIDWM #90 tab Lactulose 15 ml PO DAILY #450 ml Sertraline [Zoloft] 50 mg PO DAILY #60 tab Diet: Low Sodium Activity Restrictions: Activity as Tolerated Shower Restrictions: No Driving Restrictions: Yes (no driving due to brain damage from liver failure) Health Concerns: You came to our emergency room because you had tripped and fell at home after being intoxicated for a few days. You hit your head so hard that your mom thought you were . She thought you would stop breathing. But when EMS got there you did not need CPR. You were breathing, you had a pulse, but you were unconscious. We found you to have liver failure from chronic alcohol abuse, alcoholic hepatitis, and alcohol withdrawal. You were treated with IV fluids to hydrate you, thiamine and folate to prevent the brain damage from alcohol abuse, a benzodiazepine called Ativan to help sedate you as you go through withdrawal. During your stay you had severe electrolyte abnormalities and your potassium, calcium, magnesium, and phosphorus were all out of balance. The one thing that is left to treat is your potassium and it continues to be substantially low. We started you on lactulose to help with the liver failure and the toxins that build up. You still need a few more days to be in the hospital. Your potassium is still dangerously low and can cause arrhythmia, cardiac . But you are going to leave AGAINST MEDICAL ADVICE. Plan of Treatment: 1. Please do not drink any more alcohol again. That includes vodka, beer, wine, whiskey, bourbon, wine [employer], etc. You have severe liver failure and your risk of dying in the next few years is very high. 2. Please have your primary care provider refer you to a liver specialist. If you are able to stay clean and sober, and your liver does not recover, you could be a candidate for liver transplant. But you need to be evaluated months if not years in advance. 3. Your potassium is still low. I am asking you to take a potassium tablet twice a day. Have your primary care provider check your potassium level in a week. I do not recommend you leave today because of the low potassium but you are leaving AGAINST MEDICAL ADVICE. 4. I am prescribing lactulose. This binds the ammonia that collects in your bloodstream from liver failure. Ammonia then leads to brain damage and a very slow brain thought process. I do not recommend you drive at all. Please take the lactulose once a day. Care Goals: My stated care goal for you is that you stop drinking, slowly allow your liver to recover, and that you can resume being employed, and being present and stable in your life for your family and your children. Assessment: Patient is still slightly encephalopathic, fatigued, but is alert, oriented, states that he understands the consequences of his actions and still wants to leave AMA No Smoking: If you smoke, Please STOP! Call for help. Follow-up with: Fabby Mills, RN, BSN [Registered Nurse] -
== END 2022-10-06 10:35 | disposition left against medical advice (07) | DRG 894 ==
LOC: EDUNIT# → ED 17:38 → MS2 20:05
PROVIDERS: ADMIT Internal Medicine; ATTEND Specialist
DX: F10.129 Alcohol abuse with intoxication, unspecified (principal); S06.9X9A Unspecified intracranial injury with loss of consciousness of unspecified duration, initial encounter; E87.1 Hypo-osmolality and hyponatremia; J98.11 Atelectasis; F10.139 Alcohol abuse with withdrawal, unspecified; K70.11 Alcoholic hepatitis with ascites; Y90.8 Blood alcohol level of 240 mg/100 ml or more; R41.82 Altered mental status, unspecified; Z91.81 History of falling; R00.0 Tachycardia, unspecified; D72.829 Elevated white blood cell count, unspecified; R09.02 Hypoxemia; E87.6 Hypokalemia; E83.51 Hypocalcemia; D53.9 Nutritional anemia, unspecified; K21.9 Gastro-esophageal reflux disease without esophagitis; K29.70 Gastritis, unspecified, without bleeding; E05.90 Thyrotoxicosis, unspecified without thyrotoxic crisis or storm; D69.6 Thrombocytopenia, unspecified; F17.200 Nicotine dependence, unspecified, uncomplicated; W19.XXXA Unspecified fall, initial encounter; R19.7 Diarrhea, unspecified; R55 Syncope and collapse; F43.20 Adjustment disorder, unspecified; F32.A Depression, unspecified; K70.40 Alcoholic hepatic failure without coma
CPT/HCPCS: 36415; 70450; 71260; 72125; 74177; 80048; 80053; 80306; 80307; 80320; 80329; 81003; 82140; 82330; 82550; 82607; 82746; 83690; 83735; 84100; 84439; 84443; 84481; 85025; 85610; 85730; 96365; 99285; A9270; J2060; J3411; J7040; Q9967; 81001; 87086

== ENCOUNTER 2022-10-06 13:32 | Outpatient (CLI) | payer MEDICAID | END 2022-10-06 23:59 | disposition critical access hospital (66) | LOC: EMS 13:32 | DX: R41.82 Altered mental status, unspecified (principal) | CPT/HCPCS: A0425; A0429; A0999 ==

== ENCOUNTER 2022-10-06 13:58 | Inpatient (IN) | payer MEDICAID ==
--- NOTE | 2022-10-06 14:02 | ED Physician Documentation ---
History of Present Illness - Stated complaint Stated Complaint: LIVER FAILURE - History obtained from History obtained from: Patient - Additonal information Additional information: 32-year-old gentleman with history of alcoholic cirrhosis and hepatic encephalopathy. He was admitted here a few days ago and signed out AGAINST MEDICAL ADVICE early this morning. He still had significant hypokalemia. His family convinced him to come back but he does not want to be here and he does not want to be readmitted. He says he has not been drinking alcohol since he was discharged. PD PAST MEDICAL HISTORY - Past Medical History Cardiovascular: None Respiratory: None Neuro: None Endocrine/Autoimmune: None GI: GERD : None HEENT: None Psych: Depression Musculoskeletal: None Derm: None - Past Surgical History Past Surgical History: No - Present Medications Home Medications: Ambulatory Orders Medication Instructions Recorded Confirmed Omeprazole Magnesium 20 mg PO QDAC 07/02/22 10/06/22 Metoprolol Succinate [Toprol Xl] 50 mg PO DAILY #30 tab 08/28/22 10/06/22 Thiamine [Vitamin B-1] 100 mg PO DAILY #30 tab 08/28/22 10/06/22 Lactulose 15 ml PO DAILY #450 ml 10/06/22 10/06/22 Potassium Chloride [K-Dur] 20 meq PO TIDWM #90 tab 10/06/22 10/06/22 Sertraline [Zoloft] 50 mg PO DAILY #60 tab 10/06/22 10/06/22 - Allergies Allergies/Adverse Reactions: Allergies Allergy/AdvReac Type Severity Reaction Status Date / Time No Known Drug Allergies Allergy Verified 08/25/22 09:58 - Social History Does the pt smoke?: Yes Smoking Status: Current every day smoker Does the pt drink ETOH?: Yes Does the pt have substance abuse?: Yes - Immunizations Immunizations are current?: Yes - POLST Patient has POLST: No PD ED PE NORMAL - Vitals Vital signs reviewed: Yes - General General: Alert and oriented X 3, Other (Jaundiced) - HEENT HEENT: PERRL, EOMI - Abdomen Abdomen: Non tender, Other (With ascites) - Neuro Neuro: Alert and oriented X 3, Normal speech Results - Vitals Vitals: Vital Signs - 24 hr 10/06/22 10/06/22 10/06/22 14:08 14:15 14:16 Temperature 36.9 C Heart Rate 103 H Respiratory 18 16 18 Rate Blood Pressure 123/86 H O2 Saturation 93 87 L 93 If not protocol 1 : Oxygen Flow, liters/minute Oxygen O2 Source Nasal cannula PD Medical Decision Making - ED course ED course: 32-year-old gentleman who signed out AGAINST MEDICAL ADVICE this morning now returns. Initially says he does not want to be readmitted but after discussion says he does not I spoke with Dr. Espinoza for admission at 2 4:12 PM. CBC showing mild leukocytosis with otherwise pancytopenia. Chemistry panel most notable for evidence of liver failure, hypokalemia, hypophosphatemia, hypomagnesemia, and ammonia levels 74. He was administered IV potassium supplementation, phosphorus supplementation and magnesium supplementation in the department. Departure - Departure Disposition: 66 [facility] DC/Xfer Clinical Impression: Alcoholic hepatitis, Thrombocytopenia, Hypokalemia, Hyperammonemia Condition: Serious
[2022-10-06] MEDS ORDERED: POTASSIUM CHLOR 10 MEQ/100 ML 10 MEQ/100 ML BAG IV ONE (14:12)
[2022-10-06] MEDS ORDERED: oxyCODONE 5 MG TABLET PO PRN (14:31)
[2022-10-06] MEDS ORDERED: SODIUM CHLORIDE FLUSH 0.9% 10 ML SYRINGE IVP PRN (14:31)
--- NOTE | 2022-10-06 14:38 | HISTORY & PHYSICAL EXAMINATION ---
History and Physical - History and Physical This is an interim history and physical. The patient was just discharged this morning. He was admitted October 02 because he had a become unconscious at home after a fall. Mom thought that he had coded and called EMS thinking that he needed CPR. He was unconscious because of liver failure and alcohol intoxication. His MELD score is 21. He had quite a bit of nausea, scant emesis. All of that was stabilized with IV fluids, minimal intervention with the CIWA protocol use of Ativan. He was started on lactulose. His main problem has been electrolyte derangement and he is required quite a bit of replacement for calcium, phosphorus, and potassium. This morning he stated that he was leaving AMA. I spent 2 encounters with him trying to explain to him why he needed to stay if only for the potassium supplementation part. He refused and left AMA and had his mother pick him up.His usual home meds are only omeprazole 20 mg a day. I added metoprolol, lactulose, thiamine. I also started him on Zoloft this last admission for possible depression. His mother called me twice after discharge. Her name is Debi and her number is [phone]. I had to educate her on the rights of patients. She felt that any person could be detained on the basis of poor decisions. For instance he could be teen because he drinks, he could be detained because he has liver failure because of his drinking. I explained to her I could not. He had to want to be here of his own volition and if he left AMA it was up to him. Only if she was his power of insurance attorney or appointed guardian could she forced him to come to the hospital. She and various family members have been speaking to him. They kept on encouraging him to come back. He shared with the emergency room provider that he does not want to be here. If it were up to him he would not come back to the hospital. But he feels like his family is forcing him to do so so now he is back. This will be his third admission between July 02 and now. He has also been seen in the ED 2 other times for alcohol intoxication. Social work has spent quite a bit of time with this gentleman. They feel that it may be in his best interest to be involuntarily detained. Once he is medically clear, potassium is stable, vital stable, he may be candidate for DCR evaluation. History - Past Medical History Cardiovascular: reports: None Respiratory: reports: None Neuro: reports: None Endocrine/Autoimmune: reports: None GI: reports: GERD : reports: None HEENT: reports: None Psych: reports: Depression Musculoskeletal: reports: None Derm: reports: None MRSA Hx?: No - POLST Patient has POLST: No Patient History Medication Instructions Recorded Confirmed Omeprazole Magnesium 20 mg PO QDAC 07/02/22 10/03/22 Exam: Temperature is 36.9, heart rate 103, blood pressure 123/86. Respirations 18. 93% on 1 L. He is a tall, heavily bearded and mustache white male who looks stated age. Disheveled, fatigued, psychomotor slowing with slow, low voice, pedantic speech. No tremulousness, no diaphoresis. Shotty neck adenopathy Lungs with diminished breath sounds at the bases but clear Tachycardic regular rate and rhythm Obese abdomen that is protuberant, hypoactive bowel sounds, nontender Extremities without edema Neurologically that he does not have asterixis. He is oriented to place and time and self. He is slow moving but no ataxia or wide-based gait. No tremulousness. This morning's lab, before discharge showed him to have a sodium of 130, potassium 2.4, chloride 91. BUN less than 5, creatinine less than 4. Random glucose 103. Calcium 7.6. A1c July 02 was 4%. Yesterday his phosphorus was 1.0, magnesium 1.7. Total bili 14.6, AST 132, ALT 29. These labs show an improvement in the AST since the admission. Bili continues to slowly climb. On admission he was 9.8. With his August admission he was 2.4-5.6. With his June admission he started at 9.4 and decreased to 6.1 at the time of discharge. Assessment/Plan 1. Hypokalemia and low chloride. And low calcium, magnesium, phosphorus. My suspicion is all of this is from the nausea and vomiting and the diarrhea. He is losing electrolytes faster than we can replace.This morning's potassium is ag ain low. I supplemented with p.o. potassium (which he now hates) 10/05. I had switched to po at his request bc he didn't like the K riders. In spite of frequent supplementation on a daily basis, he still has low potassium. Plan: 2 bags of potassium phosphate followed by 2 10 mEq bags of potassium riders. Recheck BMP and phosphorus in the morning 2. Liver failure due to alcohol abuse It is now on his day of being in the hospital. I have been supporting him with IV fluids, IV thiamine, CIWA protocol. I changed the IV thiamine to p.o. thiamine 10/04. Persistent tachycardia indicates he may be going through withdrawal now. So far he is only received 1 mg of Ativan on October 04. He does not score high enough on the CIWA protocol to get it more often.. He was drinking 1/5 of vodka a day. On the he did ask for ice chips and clear liquids in spite of his nausea and vomiting.He is tolerating that well. Regular diet ordered the . He was tolerating that yesterday and today when he felt like he just needed to go home.. Plan: Resume low-salt diet at 2 g restriction Continue p.o. thiamine and folate. Continue to monitor his LFTs on a daily basis. He had a BMP this morning. I will check a CMP this afternoon since he has been readmitted. Instead of Ativan IV or p.o., I will use Librium 5 mg p.o. twice daily 3. Alcoholic cirrhosis with thrombocytopenia On examination he is not edematous. No anasarca. Belly is distended but I think it is because of ileus due to his bowels. Ammonia level was high but he does not appear encephalopathic. Lab work shows an elevated ammonia level. Macrocytosis. Thrombocytopenia. (CT of the abdomen does not show hepatosplenomegaly). In using a calculator for model for end-stage liver disease score in adults, I used a creatinine of 1.0. A bilirubin of 12.8. An INR of 1.6. His MELD score is 21. I did start lactulose October 03. I did it mainly because of the high ammonia level not because he was encephalopathic. The only thing at that I can see that might be manifestation of encephalopathy is a very flat affect. There does not seem to be much change With the use of the lactulose. I did reach out to social work to see if there is anything we can do for this gentleman. He is at high risk for dying of his alcoholic liver disease because of continued severe alcohol abuse. We discussed the fact that this is his third admission in 3 months. He keeps on insisting that he can do this by himself. He has refused to go to rehab, refused to go to counseling, and keeps on insisting that he can do this culture acute. We are considering a DCR evaluation once he is done with his acute medical problems of the alcoholic hepatitis, nausea and vomiting. This morning, when he wanted to leave AMA, I did reach out to social work. Unless he was an imminent harm to himself or someone else in the next 24 hours, we really could not detain him. He is not medically stable to go to an inpatient rehab facility. His ammonia level and his potassium level will need to be stabilized. Plan: Resume lactulose at 10 g a day. Aim for a DCR evaluation this week if he is done with his acute medical problems. Aim for a normal K. I do not think we can get her normal bilirubin. That will take weeks. 4. Leukocytosis. There is no fever, No cough or congestion, no abdominal pain, no urgency, frequency, dysuria. CT of the abdomen has an enlarged liver with cirrhosis, gallbladder and biliary tree are within normal limits. No splenomegaly. No h ydronephrosis. Thickening of the right colon with a small amount of ascites. But no true colitis. Bladder appears normal. Under distended. Urinalysis has glucosuria, bilirubinuria but there is no infection. Chest CT shows new thickening of the distal esophagus which could indicate esophageal injury. Bilateral pulmonary atelectasis versus pneumonia but no consolidation, pleural effusions. The pneumonia is described as a mild groundglass density within the bilateral lower lobes. As such, in looking for a source of infection causing the leukocytosis, nothing is definitive. The groundglass opacities in his lungs could be simple atelectasis. He does not have a UTI. Possible focal colitis of the right bowel versus trauma. But no diverticulitis or other colitis.White cell count was 16.7 on admission. Then he went up to 17.6. Yesterday morning was 13.6. I was going to check a repeat CBC this morning but he left AMA Plan:Repeat CBC. If he does spike a temp, I would start empiric antibiotic therapy. 5. Depression/adjustment disorder. I do not know how much starting an SSRI is can help him. This would be like adding a cup of water to the ocean. I started him on Zoloft 25 mg a day. Plan: Increase to 50 mg a day. Seek outpatient mental health provider Social work and I feel that we will be ordering a DCR evaluation when he is done with his acute medical problems. 6. Macrocytic anemia Free T4, free T3, TSH all normal. B12 level was normal in June 2022. Folate was normal in June and 2022. Most likely this is direct toxicity of alcohol on bone marrow. Plan: P.o. thiamine 100 mg daily. 7. Hyponatremia. Due to alcohol abuse, lack of p.o. intake. Dehydration. I will continue IV fluids for hydration, And diet is being advanced to a low-salt 1 today.
[2022-10-06 14:50] LABS: BASOPHILS % (AUTO) 0.2 %; EOSINOPHILS # (AUTO) 0.1 10^3/uL (0.0-0.7); EOSINOPHILS % (AUTO) 0.4 %; HCT - HEMATOCRIT 26.2 % (42.0-52.0); HGB - HEMOGLOBIN 9.2 g/dL (14.0-18.0); LYMPHOCYTES % (AUTO) 8.1 %; MEAN CORPUSCULAR HEMOGLOBIN 36.1 pg (27.0-31.0); MEAN CORPUSCULAR HGB CONC 35.1 g/dL (32.0-36.0); MEAN CORPUSCULAR VOLUME 102.7 fL (80.0-94.0); MEAN PLATELET VOLUME 12.2 fL (7.4-11.4); MONOCYTES # (AUTO) 0.9 10^3/uL (0.0-1.0); MONOCYTES % (AUTO) 7.6 %; NEUTROPHILS % (AUTO) 83.2 %; PLT - PLATELET COUNT 40 10^3/uL (130-450); RED BLOOD COUNT 2.55 10^6/uL (4.70-6.10); RED CELL DISTRIBUTION WIDTH 20.7 % (12.0-15.0)
[2022-10-06 14:51] LABS: SLIDE REVIEW? Indicated
[2022-10-06 15:00] LABS: ALBUMIN 2.3 g/dL (3.2-5.5); ALBUMIN/GLOBULIN RATIO 0.5 (1.0-2.2); ALKALINE PHOSPHATASE 177 IU/L (42-121); ALT ALANINE AMINOTRANSFERASE 27 IU/L (10-60); AST ASPARTATE AMINOTRANSFERASE 111 IU/L (10-42); BILIRUBIN,TOTAL 15.9 mg/dL (0.2-1.0); BUN - BLOOD UREA NITROGEN < 5 mg/dL (6-20); CALCIUM 7.8 mg/dL (8.5-10.3); CARBON DIOXIDE - CO2 31 mmol/L (21-32); CHLORIDE 91 mmol/L (101-111); CREATININE 0.3 mg/dL (0.6-1.2); ETOH - ETHANOL < 5.0 mg/dL; GFR - MDRD 350 (>89); GLUCOSE 97 mg/dL (70-100); MAGNESIUM 1.5 mg/dL (1.7-2.8); PHOSPHORUS 2.1 mg/dL (2.5-4.6); SODIUM 132 mmol/L (135-145); TOTAL PROTEIN 6.9 g/dL (6.7-8.2)
[2022-10-06] MEDS ORDERED: POTASSIUM CHLOR 10 MEQ/100 ML 10 MEQ/100 ML BAG IV SCH (15:00)
[2022-10-06] MEDS ORDERED: MAGNESIUM SULFATE 2 GRAM 2 GM/50 ML BAG IV ONE (15:04)
[2022-10-06] MEDS ORDERED: POTASSIUM PHOSPHATE 15 MMOL in SODIUM CHLORIDE 0.9% 250 ML IV ONE (15:04)
[2022-10-06 15:07] LABS: POTASSIUM 2.4 mmol/L (3.5-5.0)
[2022-10-06 15:16] LABS: PLATELET ESTIMATE, MANUAL DECREASED (<130,000) (NORMAL); PLATELET MORPHOLOGY 1+ GIANT PLATELETS (NORMAL)
[2022-10-06] MEDS: SODIUM CHLORIDE FLUSH 0.9% 10 ML SYRINGE IVP SCH (17:11)
[2022-10-06] MEDS: chlordiazePOXIDE 5 MG CAPSULE PO SCH (21:11)
[2022-10-06] MEDS: POTASSIUM CHLOR 10 MEQ/100 ML 10 MEQ/100 ML BAG IV SCH (23:29)
[2022-10-07] MEDS: POTASSIUM CHLOR 10 MEQ/100 ML 10 MEQ/100 ML BAG IV SCH ×11 (00:37→18:32)
[2022-10-07] MEDS: SODIUM CHLORIDE FLUSH 0.9% 10 ML SYRINGE IVP SCH ×4 (04:05→23:44)
[2022-10-07 06:08] LABS: BASOPHILS % (AUTO) 0.3 %; EOSINOPHILS # (AUTO) 0.1 10^3/uL (0.0-0.7); EOSINOPHILS % (AUTO) 0.6 %; HCT - HEMATOCRIT 23.7 % (42.0-52.0); HGB - HEMOGLOBIN 8.4 g/dL (14.0-18.0); LYMPHOCYTES # (AUTO) 1.1 10^3/uL (1.5-3.5); LYMPHOCYTES % (AUTO) 9.1 %; MEAN CORPUSCULAR HEMOGLOBIN 36.5 pg (27.0-31.0); MEAN CORPUSCULAR HGB CONC 35.4 g/dL (32.0-36.0); MEAN PLATELET VOLUME 11.5 fL (7.4-11.4); MONOCYTES # (AUTO) 1.5 10^3/uL (0.0-1.0); MONOCYTES % (AUTO) 11.7 %; NEUTROPHILS # (AUTO) 9.7 10^3/uL (1.5-6.6); NEUTROPHILS % (AUTO) 77.6 %; PLT - PLATELET COUNT 54 10^3/uL (130-450); RED CELL DISTRIBUTION WIDTH 21.1 % (12.0-15.0); WHITE BLOOD COUNT 12.4 x10^3/uL (4.8-10.8)
[2022-10-07 06:12] LABS: SLIDE REVIEW? Indicated
[2022-10-07 06:32] LABS: PLATELET ESTIMATE, MANUAL DECREASED (<130,000) (NORMAL); PLATELET MORPHOLOGY NORMAL APPEARANCE (NORMAL); WBC MORPHOLOGY (MULTIPLE) NORMAL APPEARANCE (NORMAL)
[2022-10-07 06:33] LABS: BUN - BLOOD UREA NITROGEN < 5 mg/dL (6-20); CALCIUM 7.6 mg/dL (8.5-10.3); CARBON DIOXIDE - CO2 30 mmol/L (21-32); CHLORIDE 94 mmol/L (101-111); CREATININE 0.4 mg/dL (0.6-1.2); GFR - MDRD 251 (>89); GLUCOSE 100 mg/dL (70-100); POTASSIUM 2.7 mmol/L (3.5-5.0); SODIUM 132 mmol/L (135-145)
--- NOTE | 2022-10-07 07:19 | PHARMACY PROGRESS NOTE ---
- Best Possible Medication History Admit Date and Time: 10/06/22 1431 Processed by: Pharmacy Secondary Source(s): Previous admit records As the person ultimately responsible for medication therapy, providers are able to order a medication from an existing home medication list in [facility] via the "Reconcile Routine" prior to Confirmation of that medication by it support engineer. Such practice is discouraged except when the physician, in their clinical judgment, deems that a medical need exists for a medication without regard to previous use.
--- NOTE | 2022-10-07 08:28 | PROVIDER PROGRESS NOTE ---
Subjective - Prog Note Date Prog Note Date: 10/07/22 Prog Note Time: 08:27 - Subjective Subjective: Affect is with psychomotor slowing, flatness. But he is not happy being here. Only here because his family made him. Slightly tachycardic. Heart rate be tween 103 and as high as 110.Potassium is still low, phosphorus is still low. I am having to supplement. Current Medications - Current Medications Current Medications: Active Medications Chlordiazepoxide HCl (Chlordiazepoxide 5 Mg Capsule) 5 mg PO BID [facility] Last Admin: 10/06/22 21:11 Dose: 5 mg Potassium Chloride (Potassium Chloride) 10 meq in 100 mls @ 100 mls/hr IV Q1H [facility] Stop: 10/07/22 15:59 Ibuprofen (Ibuprofen 600 Mg Tablet) 600 mg PO Q6HR PRN PRN Reason: Pain 1 to 4 Lactulose (Lactulose 10 Gm /15 Ml Udc) 10 gm PO DAILY [facility] Metoprolol Succinate (Metoprolol Succinate 50 Mg Tablet) 50 mg PO DAILY [facility] Ondansetron HCl (Ondansetron Odt 4 Mg Tablet) 4 mg TL Q6HR PRN PRN Reason: Nausea / Vomiting Ondansetron HCl (Ondansetron 4 Mg/2 Ml Vial) 4 mg IVP Q6HR PRN PRN Reason: Nausea / Vomiting Oxycodone HCl (Oxycodone 5 Mg Tablet) 5 mg PO Q4HR PRN PRN Reason: Pain 5 to 7 Sertraline HCl (Sertraline 50 Mg Tablet) 50 mg PO DAILY [facility] Sodium Chloride (Sodium Chloride Flush 0.9% 10 Ml Syringe) 10 ml IVP PRN PRN PRN Reason: NEEDED PER PROVIDER ORDERS Sodium Chloride (Sodium Chloride Flush 0.9% 10 Ml Syringe) 10 ml IVP 0100,0900,1700 [facility] Last Admin: 10/07/22 04:05 Dose: 10 ml Thiamine HCl (Thiamine 100 Mg Tablet) 100 mg PO DAILY [facility] Omeprazole Magnesium 20 mg PO QDAC 07/02/22 Objective - Vital Signs/Intake & Output Reviewed Vital Signs: Yes Vital Signs: Vital Signs x48h Temp Pulse Resp BP Pulse Ox O2 Flow Rate 10/07/22 05:09 36.6 C 107 H 16 136/52 H 100 2 Intake & Output: Intake & Output 10/04/22 10/05/22 10/06/2210/07/23 23:59 23:59 23:59 23:59 Intake Total 150 1153.333 Balance 150 1153.333 - Objective General Appearance: positive: No acute distress (He had gone back home yesterday, AMA. Returned yesterday afternoon. Still wearing the same clothes that he was discharged in), Other (Slow-moving, slow speaking. Morbidly obese male. Psychomotor slowing that is evident when he tries to do things like feed himself or readjust the nasal cannula on his nose. Pass points or cannot quite coordinate his hands correctly) Eyes Bilateral: positive: PERRL, EOMI, Other (Icteric sclera) ENT: positive: No signs of dehydration Neck: positive: No JVD. negative: Stiff neck Respiratory: positive: No respiratory distress, Rhonchi (Faint and bilateral mid lungs. No wheezing. No use of accessory muscles. No tachypnea). negative: Wheezes, Rales Cardiovascular: positive: Regular rate & rhythm, Tachycardia Abdomen: positive: Other (Obese, protuberant, hypoactive bowel sounds, I do not feel a fluid wave. Denies any tenderness in the right upper quadrant). negative: Guarding, Rebound Skin: positive: Warm, Dry, Other (Jaundiced) Extremities: positive: Non-tender, Full ROM, Pedal edema Neurologic/Psychiatric: positive: Oriented x3, CN's nml (2-12). negative: Motor nml (Psychomotor slowing evident) - Lab Results Fish Bones: 10/07/22 05:56 10/07/22 05:56 Other Labs: Lab Results x24hrs 10/07/22 10/07/22 10/06/22 Range/Units 05:56 05:56 14:41 WBC 12.4 H (4.8-10.8) x10^3/uL RBC 2.30 L (4.70-6.10) 10^6/uL Hgb 8.4 L (14.0-18.0) g/dL Hct 23.7 L (42.0-52.0) % MCV 103.0 H (80.0-94.0) fL MCH 36.5 H (27.0-31.0) pg MCHC 35.4 (32.0-36.0) g/dL RDW 21.1 H (12.0-15.0) % Plt Count 54 L (130-450) 10^3/uL MPV 11.5 H (7.4-11.4) fL Neut # (Auto) 9.7 H (1.5-6.6) 10^3/uL Lymph # (Auto) 1.1 L (1.5-3.5) 10^3/uL [place] # (Auto) 1.5 H (0.0-1.0) 10^3/uL Eos # (Auto) 0.1 (0.0-0.7) 10^3/uL Baso # (Auto) 0.0 (0.0-0.1) 10^3/uL Absolute Nucleated RBC 0.00 x10^3/uL Nucleated RBC % 0.0 /100WBC Manual Slide Review Indicated WBC Morphology NORMAL APPEARANCE (NORMAL) Platelet Estimate DECREASED (<130,000) (NORMAL) Platelet Morphology NORMAL APPEARANCE (NORMAL) RBC Morph Micro Appear 1+ TARGET CELLS (NORMAL) Sodium 132 L (135-145) mmol/L Potassium 2.7 L (3.5-5.0) mmol/L Chloride 94 L (101-111) mmol/L Carbon Dioxide 30 (21-32) mmol/L Anion Gap 8.0 (6-13) BUN < 5 L (6-20) mg/dL Creatinine 0.4 L (0.6-1.2) mg/dL Estimated GFR (MDRD) 251 (>89) Glucose 100 (70-100) mg/dL Calcium 7.6 L (8.5-10.3) mg/dL Phosphorus (2.5-4.6) mg/dL Magnesium (1.7-2.8) mg/dL Total Bilirubin (0.2-1.0) mg/dL AST (10-42) IU/L ALT (10-60) IU/L Alkaline Phosphatase (42-121) IU/L Ammonia 74.1 H (7-35) umol/L Total Protein (6.7-8.2) g/dL Albumin (3.2-5.5) g/dL Globulin (2.1-4.2) g/dL Albumin/Globulin Ratio (1.0-2.2) Ethyl Alcohol mg/dL 10/06/22 10/06/22 Range/Units 14:41 14:41 WBC 12.0 H (4.8-10.8) x10^3/uL RBC 2.55 L (4.70-6.10) 10^6/uL Hgb 9.2 L (14.0-18.0) g/dL Hct 26.2 L (42.0-52.0) % MCV 102.7 H (80.0-94.0) fL MCH 36.1 H (27.0-31.0) pg MCHC 35.1 (32.0-36.0) g/dL RDW 20.7 H (12.0-15.0) % Plt Count 40 L (130-450) 10^3/uL MPV 12.2 H (7.4-11.4) fL Neut # (Auto) 10.0 H (1.5-6.6) 10^3/uL Lymph # (Auto) 1.0 L (1.5-3.5) 10^3/uL [place] # (Auto) 0.9 (0.0-1.0) 10^3/uL Eos # (Auto) 0.1 (0.0-0.7) 10^3/uL Baso # (Auto) 0.0 (0.0-0.1) 10^3/uL Absolute Nucleated RBC 0.00 x10^3/uL Nucleated RBC % 0.0 /100WBC Manual Slide Review Indicated WBC Morphology (NORMAL) Platelet Estimate DECREASED (<130,000) (NORMAL) Platelet Morphology 1+ GIANT PLATELETS (NORMAL) RBC Morph Micro Appear 1+ TARGET CELLS (NORMAL) Sodium 132 L (135-145) mmol/L Potassium 2.4 L* (3.5-5.0) mmol/L Chloride 91 L (101-111) mmol/L Carbon Dioxide 31 (21-32) mmol/L Anion Gap 10.0 (6-13) BUN < 5 L (6-20) mg/dL Creatinine 0.3 L (0.6-1.2) mg/dL Estimated GFR (MDRD) 350 (>89) Glucose 97 (70-100) mg/dL Calcium 7.8 L (8.5-10.3) mg/dL Phosphorus 2.1 L (2.5-4.6) mg/dL Magnesium 1.5 L (1.7-2.8) mg/dL Total Bilirubin 15.9 H (0.2-1.0) mg/dL AST 111 H (10-42) IU/L ALT 27 (10-60) IU/L Alkaline Phosphatase 177 H (42-121) IU/L Ammonia (7-35) umol/L Total Protein 6.9 (6.7-8.2) g/dL Albumin 2.3 L (3.2-5.5) g/dL Globulin 4.6 H (2.1-4.2) g/dL Albumin/Globulin Ratio 0.5 L (1.0-2.2) Ethyl Alcohol < 5.0 mg/dL Assessment/Plan - Problem List (1) Hypokalemia Impression: and low chloride. And low calcium, magnesium, phosphorus. He was admitted October 02 through October 06. Left AMA on the . The admission was for syncope in the context of acute intoxication. When he was evaluated in the emergency room he was most likely intoxicated, fell. He did not have a code. But he was identified as dehydrated, alcoholic hepatitis, hepatic encephalopathy, a MELD score of 21. He did go through withdrawal but symptoms were manageable. He had minimal tachycardia and no tremulousness, seizures or delirium. When he left [facility], my main focus of treatment consisted of treating his electrolyte derangement of low calcium, magnesium, phosphorus and potassium. That continues to be the main reason we readmitted him yesterday afternoon. My suspicion is all of this is from the nausea and vomiting and the diarrhea. He is losing electrolytes faster than we can replace. He continues to have diarrhea once a day But the nausea and vomiting resolved. By the time of discharge yesterday, he was able to keep food down. And I am attributing that to the lactulose I am giving him. He is asking if we can discontinue the lactulose. I explained what the lactulose is for. He has psychomotor slowing, elevated ammonia level before he left AMA. And that is part of his clinical pic ture right now. Plan: 80 mEq potassium rider, recheck potassium after that Phosphorus is also low. See he will be getting a K-Phos rider as well. 2. Liver failure due to alcohol abuse He was initially supported with IV fluids, IV thiamine, CIWA protocol. I then changed his meds to p.o. on October 04. Throughout the rest of his stay he had consistent tachycardia and he did feel miserable. He progressed from n.p.o. to clear liquids and then a regular diet by the . MELD score is 21.AST has improved to be 111 today. ALT has always been normal. Unfortunately bilirubin continues to rise. Laboratory Tests 10/02/22 10/03/22 10/04/22 17:47 05:00 05:02 Total Bilirubin 9.1 H 9.8 H 12.8 H AST 175 H 165 H 150 H Ammonia 10/05/22 10/06/22 10/06/22 05:29 14:41 14:41 Total Bilirubin 14.6 H 15.9 H AST 132 H 111 H Ammonia 74.1 H I have explained at length that this is not a good prognostic indicator. With time, if he stops drinking, his liver can slowly hopefully heal. He needs to follow-up with hepatology in the outpatient setting. He needs to stop drinking. His mom was very upset that he was discharged yesterday. She kept on stating that "how can he be discharged when he is still so sick". I explained to her that it was not my idea to discharge him. I felt that he should stay. I educated her on individual rights for patients. Patients have the right to make bad decisions, and we cannot detain them against their will to rectify their bad decisions. As long as he is not an imminent threat to himself or to someone else, we really cannot detain someone. He was adamant that he wanted to leave AMA yesterday. Stated it multiple times. Called his mom to come pick him up. I am glad that she was able to convince him to come back. Plan: Continue low-salt diet at 2 g restriction Continue p.o. thiamine and folate. Continue to monitor his LFTs on a daily basis. Instead of Ativan IV or p.o., I Am using Librium 5 mg p.o. twice daily 3. Alcoholic cirrhosis with thrombocytopenia On examination he is not edematous. No anasarca. Belly is distended but I think it is because of ileus due to his bowels. Ammonia level was high but he does not appear encephalopathic. Lab work shows an elevated ammonia level. Macrocytosis. Thrombocytopenia. (CT of the abdomen does not show hepatosplenomegaly). In using a calculator for model for end-stage liver disease score in adults, I used a creatinine of 1.0. A bilirubin of 12.8. An INR of 1.6. His MELD score is 21. I did start lactulose October 03. I did it mainly because of the high ammonia level not because he was encephalopathic. The only thing at that I can see that might be manifestation of encephalopathy is a very flat affect. There does not seem to be much change With the use of the lactulose. He had abdomen pelvis CT in June 2022 and October 02, 2022. He has marked fatty liver. Minimal free fluid. His biliary system is within normal limits. He does not have splenomegaly yet. There are no anatomic changes of portal hypertension yet. I did reach out to social work to see if there is anything we can do for this gentleman. He is at high risk for dying of his alcoholic liver disease because of continued severe alcohol abuse. We discussed the fact that this is his third admission in 3 months. He keeps on insisting that he can do this by himself. He has refused to go to rehab, refused to go to counseling, and keeps on insisting that he can do this culture acute. We are considering a DCR evaluation once he is done with his acute medical problems of the alcoholic hepatitis, nausea and vomiting. This morning, when he wanted to leave AMA, I did reach out to social work. Unless he was an imminent harm to himself or someone else in the next 24 hours, we really could not detain him. He is not medically stable to go to an inpatient rehab facility. His ammonia level and his potassium level will need to be stabilized. Ammonia was in the 70s yesterday. From my physical exam perspective, on the lactulose, there has not really been a change in his psychomotor slowing. But he has daily diarrhea. He is willing to take it with Sprite every morning. Currently the diarrhea is his main complaint. Plan:Change lactulose to 10 g every other day. Aim for a DCR evaluation this week if he is done with his acute medical problems. Aim for a normal K. I do not think we can get a normal bilirubin. That will take weeks. 4. Leukocytosis. There is no fever, No cough or congestion, no abdominal pain, no urgency, frequency, dysuria. CT of the abdomen has an enlarged liver with cirrhosis, gallbladder and biliary tree are within normal limits. No splenomegaly. No hydronephrosis. Thickening of the right colon with a small amount of ascites. But no true colitis. Bladder appears normal. Under distended. Urinalysis has glucosuria, bilirubinuria but there is no infection. Chest CT shows new thickening of the distal esophagus which could indicate esophageal injury. Bilateral pulmonary atelectasis versus pneumonia but no consolidation, pleural effusions. The pneumonia is described as a mild groundglass density within the bilateral lower lobes. As such, in looking for a source of infection causing the leukocytosis, nothing is definitive. The groundglass opacities in his lungs could be simple atelectasis. He does not have a UTI. Possible focal colitis of the right bowel versus trauma. But no diverticulitis or other colitis. White cell count was 16.7 on the previous admission. The day before discharge she had gone to 13.6. With this admission it has come down a bit. Yesterday afternoon he was 12.0, and today he is 12.4. Again nothing on review of systems that would indicate a source of infection. Plan: If he does spike a temp, I would start empiric antibiotic therapy. 5. Depression/adjustment disorder. I do not know how much starting an SSRI is can help him. This would be like adding a cup of water to the ocean. I started him on Zoloft 25 mg a day.That w as with the last admission. With yesterday's readmission I increased the Zoloft to 50 mg a day. Plan: Monitor for signs and symptoms of depression or suicidal ideation. Response to medication is not expected for at least another month. Seek outpatient mental health provider Social work and I feel that we will be ordering a DCR evaluation when he is done with his acute medical problems. 6. Macrocytic anemia Free T4, free T3, TSH all normal. B12 level was normal in June 2022. Folate was normal in June and 2022. Most likely this is direct toxicity of alcohol on bone marrow. Plan: P.o. thiamine 100 mg daily. 7. Hyponatremia. Due to alcohol abuse, lack of p.o. intake. Dehydration. He received IV fluids for hydration. Yesterday his IV fluids were discontinued and he is on a low-salt diet. No evidence of fluid overload yet. If he does need fluid restriction I would think that he would need restriction to 1500 cc a day total. But I am not doing that right now.
[2022-10-07] MEDS ORDERED: LACTULOSE 10 GM /15 ML UDC PO SCH (09:00)
[2022-10-07] MEDS: chlordiazePOXIDE 5 MG CAPSULE PO SCH ×2 (09:12→20:26)
[2022-10-07] MEDS: SERTRALINE 50 MG TABLET PO SCH (09:12)
[2022-10-07] MEDS: THIAMINE 100 MG TABLET PO SCH (09:12)
[2022-10-07] MEDS: METOPROLOL SUCCINATE 50 MG TABLET PO SCH (09:12)
[2022-10-07] MEDS: NICOTINE 14 MG PATCH TOP SCH (12:56)
[2022-10-07] MEDS ORDERED: FOLIC ACID INJ 1 MG in SODIUM CHLORIDE 0.9% 1,000 ML IV SCH (13:00)
[2022-10-07] MEDS ORDERED: SODIUM CHLORIDE 0.9% 1,000 ML IV ONE (14:54)
[2022-10-07] MEDS ORDERED: MAGNESIUM SULFATE 2 GRAM 2 GM/50 ML BAG IV ONE (15:04)
[2022-10-08] MEDS: IBUPROFEN 600 MG TABLET PO PRN ×2 (05:40→16:08)
[2022-10-08 05:52] LABS: BASOPHILS % (AUTO) 0.3 %; EOSINOPHILS % (AUTO) 0.8 %; HCT - HEMATOCRIT 24.5 % (42.0-52.0); HGB - HEMOGLOBIN 8.4 g/dL (14.0-18.0); MEAN CORPUSCULAR HEMOGLOBIN 35.9 pg (27.0-31.0); MEAN CORPUSCULAR HGB CONC 34.3 g/dL (32.0-36.0); MEAN CORPUSCULAR VOLUME 104.7 fL (80.0-94.0); MEAN PLATELET VOLUME 10.6 fL (7.4-11.4); MONOCYTES % (AUTO) 14.9 %; PLT - PLATELET COUNT 92 10^3/uL (130-450); RED BLOOD COUNT 2.34 10^6/uL (4.70-6.10); RED CELL DISTRIBUTION WIDTH 21.6 % (12.0-15.0); WHITE BLOOD COUNT 12.9 x10^3/uL (4.8-10.8)
[2022-10-08 06:03] LABS: ABNORMAL LYMPHS % (MANUAL) 0 %; BAND NEUTROPHILS % (MANUAL) 0 %
[2022-10-08 06:17] LABS: LYMPHOCYTES # (MANUAL) 1.7 10^3/uL (1.5-3.5); LYMPHOCYTES % (MANUAL) 13 %; MONOCYTES # (MANUAL) 2.3 10^3/uL (0.0-1.0); NEUTROPHILS # (MANUAL) 8.9 10^3/uL (1.5-6.6)
[2022-10-08 06:18] LABS: DIFFERENTIAL COMMENT MANUAL DIFFERENTIAL; PLATELET ESTIMATE, MANUAL DECREASED (<130,000) (NORMAL); PLATELET MORPHOLOGY NORMAL APPEARANCE (NORMAL); WBC MORPHOLOGY (MULTIPLE) NORMAL APPEARANCE (NORMAL)
[2022-10-08 06:20] LABS: BUN - BLOOD UREA NITROGEN < 5 mg/dL (6-20); CALCIUM 7.6 mg/dL (8.5-10.3); CARBON DIOXIDE - CO2 27 mmol/L (21-32); CHLORIDE 95 mmol/L (101-111); CREATININE 0.3 mg/dL (0.6-1.2); GFR - MDRD 350 (>89); GLUCOSE 96 mg/dL (70-100); SODIUM 130 mmol/L (135-145)
--- NOTE | 2022-10-08 08:42 | PROVIDER PROGRESS NOTE ---
Assessment/Plan - Problem List (1) Hypokalemia Assessment/Plan: He was admitted October 02 through October 06. Left AMA on the . The admission was for syncope in the context of acute intoxication. When he was evaluated in the emergency room he was most likely intoxicated, fell. He did not have a code. But he was identified as dehydrated, alcoholic hepatitis, hepatic encephalopathy, a MELD score of 21. He did go through withdrawal but symptoms were manageable. He had minimal tachycardia and no tremulousness, seizures or delirium. When he left AMA, my main focus of treatment consisted of treating his electrolyte derangement of low calcium, magnesium, phosphorus and potassium. That continues to be the main reason we readmitted him yesterday afternoon. My suspicion is all of this is from the previous nausea and vomiting and the ongoing diarrhea. He is losing electrolytes faster than we can replace. He continues to have diarrhea once a day but the nausea and vomiting resolved. By the time of discharge yesterday, he was able to keep food down. And I am attributing that to the lactulose I am giving him. He is asking if we can discontinue the lactulose. I explained what the lactulose is for. He has psychomotor slowing, elevated ammonia level before he left AMA. Plan: We will again give IV K riders, 40 mEq total, for a K of 3.o today (all labs were reviewed) I will start oral potassium 20 mEq twice daily with meals Follow BMP daily 2. Hypophosphatemia Phosphorus is also low. Plan: As above, he will be getting a K-Phos rider as well. 3. Liver failure due to alcohol abuse He was initially supported with IV fluids, IV thiamine, CIWA protocol. Then we changed his meds to p.o. on October 04. He progressed from n.p.o. to clear liquids and then a regular diet by the . MELD score is 21. AST has improved dsily. ALT has always been normal. Unfortunately bilirubin continues to rise. The last Hospitalist explained at length that this is not a good prognostic indicator. With time, if he stops drinking, his liver hopefully can slowly heal. He needs to follow-up with Hepatology in the outpatient setting. He needs to stop drinking alcohol. His mom was very upset that he was discharged AMA. She kept on stating that "how can he be discharged when he is still so sick". I explained to her that it was not my idea to discharge him. We felt that he should sta and the last Hospitalist educated her on individual rights for patients. Patients have the right to make bad decisions, and we cannot detain them against their will to rectify their bad decisions. As long as he is not an imminent threat to himself or to someone else, we really cannot detain someone. He was adamant that he wanted to leave AMA and called his mom to come pick him up. We are glad that she was able to convince him to come back. Plan: Continue low-salt diet at 2 g restriction Continue p.o. thiamine and folate. Continue to monitor his LFTs on a daily basis. Instead of Ativan IV or p.o., I Am using Librium 5 mg p.o. twice daily I would like to resume his daily po Lasix but this would just add to his hypokalemia. 4. Alcoholic cirrhosis with thrombocytopenia On examination he has ascites but no anasarca. Belly is distended. Ammonia level was high but he does not appear encephalopathic. Lab work shows an elevated ammonia level. Macrocytosis. Thrombocytopenia. (CT of the abdomen does not show hepatosplenomegaly). In using a calculator for model for end-stage liver disease score in adults, the last hospitalist used a creatinine of 1.0. A bilirubin of 12.8. An INR of 1.6. His MELD score is 21. Lactulose was started October 03 mainly because of the high ammonia level not because he was encephalopa thic. He had abdomen pelvis CT in June 2022 and October 02, 2022. He has hepatomegaly and a marked fatty liver. There is mild ascites. His biliary system is within normal limits. He does not have splenomegaly yet. There are no anatomic changes of portal hypertension yet. I did reach out to social work to see if there is anything we can do for this gentleman. He is at high risk for dying of his alcoholic liver disease because of continued severe alcohol abuse. We discussed the fact that this is his third admission in 3 months. He keeps on insisting that he can do this by himself. He has refused to go to rehab, refused to go to counseling, and keeps on insisting that he can do this alone. We are considering a DCR evaluation once he is done with his acute medical problems of the alcoholic hepatitis, and hypokalemia, and hyperammoniawhich need to be stabilized. He has daily diarrhea. He is willing to take Lactulose every other day. Currently the diarrhea is his main complaint. Plan: Cont Lactulose now 10 g every other day. Aim for a DCR evaluation this week if he is done with his acute medical problems. Aim for a normal K. I do not think we can get a normal bilirubin. Th at will take weeks. 5. Leukocytosis. There is no fever, no cough or congestion, no abdominal pain, no urgency, frequency, dysuria. CT of the abdomen has an enlarged liver with cirrhosis, gallbladder and biliary tree were within normal limits. No splenomegaly. No hydronephrosis. Thickening of the right colon with a small amount of ascites. But no true colitis. Bladder appears normal. Under distended. Urinalysis has glucosuria, bilirubinuria but there is no infection. Chest CT shows new thickening of the distal esophagus which could indicate esophageal injury. Bilateral pulmonary atelectasis versus pneumonia but no consolidation, pleural effusions. The pneumonia is described as a mild groundglass density within the bilateral lower lobes. As such, in looking for a source of infection causing the leukocytosis, nothing is definitive. The groundglass opacities in his lungs could be simple atelectasis. He does not have a UTI. Possible focal colitis of the right bowel versus trauma. But no diverticulitis or other colitis. Plan: If he does spike a temp, I would start empiric antibiotic therapy. 6. Depression/adjustment disorder. I do not know how much starting an SSRI can help him. We started him on Zoloft 25 mg a day with the last admission. When readmitted we increased the Zoloft to 50 mg a day. Plan: Monitor for signs and symptoms of depression or suicidal ideation. Response to medication is not expected for at least another month. Seek outpatient mental health provider Social work and I feel that we will be ordering a DCR evaluation when he is done with his acute medical problems. 7. Macrocytic anemia Free T4, free T3, TSH all normal. B12 level was normal in June 2022. Folate was normal in June and 2022. Most likely this is direct toxicity of alcohol on bone marrow. Plan: P.o. thiamine 100 mg daily. 8. Hyponatremia. Due to alcohol abuse, lack of p.o. intake. Dehydration. He received IV fluids for hydration. When his IV fluids were discontinued and he is on a low-salt diet due to ascites. No evidence of fluid overload yet. Plan: If he does need fluid restriction I would think that he would need restriction to 1500 cc a day total. But I am not doing that yet. - Current Meds Current Meds: Current Medications Generic Name Dose Route Start Last Admin Trade Name Arsalan PRN Reason Stop Dose Admin Chlordiazepoxide HCl 5 mg 10/06/22 21:00 10/07/22 20:26 Chlordiazepoxide 5 Mg Capsule PO 5 mg BID MILTON Administration Ibuprofen 600 mg 10/06/22 14:31 10/08/22 05:40 Ibuprofen 600 Mg Tablet PO 600 mg Q6HR PRN Administration Pain 1 to 4 Metoprolol Succinate 50 mg 10/07/22 09:00 10/07/22 09:12 Metoprolol Succinate 50 Mg Tablet PO 50 mg DAILY MILTON Administration Nicotine 1 patch 10/07/22 13:00 10/07/22 12:56 Nicotine 14 Mg Patch TOP 1 patch DAILY MILTON Administration Sertraline HCl 50 mg 10/07/22 09:00 10/07/22 09:12 Sertraline 50 Mg Tablet PO 50 mg DAILY MILTON Administration Sodium Chloride 10 ml 10/06/22 17:00 10/07/22 23:44 Sodium Chloride Flush 0.9% 10 Ml Syringe IVP 10 ml 0100,[id number],1700 MILTON Administration Thiamine HCl 100 mg 10/07/22 09:00 10/07/22 09:12 Thiamine 100 Mg Tablet PO 100 mg DAILY MLITON Administration - Lab Result Fish Bone Diagrams: 10/08/22 05:36 10/08/22 05:36 - Additional Planning My Orders: My Active Orders 10/08/22 05:00 PHOSPHORUS [CHEM] Urgent 10/08/22 08:39 Potassium Chloride [Micro-K] 20 meq PO BIDWM 10/08/22 08:40 Potassium Phosphate/NS 15 mmol/250 mL x 1 Potassium Phosphate 15 mmol Sodium Chloride 0.9% [Normal Saline 0.9%] 250 ml IV ONCE 10/08/22 09:00 Potassium Chloride/Water 10 mEq/100 mL q1h (Enter # of bags) Potassium Chlor 10 Meq/100 ml [Potassium Chloride] 10 meq in 100 ml IV Q1H 10/09/22 05:00 MAGNESIUM [CHEM] DAILYLAB PHOSPHORUS [CHEM] DAILYLAB 10/10/22 05:00 PHOSPHORUS [CHEM] DAILYLAB 10/11/22 05:00 PHOSPHORUS [CHEM] DAILYLAB Subjective - Subjective Patient Reports: Resting Comfortably, Other (He reports peeing orange urine and having daily loose BMs.) Objective Vital Signs: Vital Signs - 24 hr 10/07/22 10/07/22 10/07/22 10:57 12:14 15:34 Temperature 36.8 C 36.7 C Heart Rate [ 99 99 Brachial] Respiratory 16 16 Rate Blood Pressure [Left Brachial artery] Blood Pressure 115/63 100/67 [Right Brachial artery] O2 Saturation 93 91 L 92 If not protocol : Oxygen Flow, liters/minute 10/07/22 10/08/22 10/08/22 20:12 00:17 05:32 Temperature 37.4 C 36.6 C 37.0 C Heart Rate [ 74 95 98 Brachial] Respiratory 16 18 18 Rate Blood Pressure 112/66 113/62 [Left Brachial artery] Blood Pressure 115/66 [Right Brachial artery] O2 Saturation 96 90 L 92 If not protocol 2 : Oxygen Flow, liters/minute 10/08/22 08:09 Temperature 36.8 C Heart Rate [ 88 Brachial] Respiratory 20 Rate Blood Pressure [Left Brachial artery] Blood Pressure 125/68 [Right Brachial artery] O2 Saturation 95 If not protocol 2 : Oxygen Flow, liters/minute Oxygen O2 Source Nasal cannula I&O (Last 24 Hrs): Intake and Output Totals x24h 10/06/22 10/07/22 10/08/22 23:59 23:59 23:59 Intake Total 150 3013.333 1000.2 Balance 150 3013.333 1000.2 General: Alert, Oriented x3 HEENT: Mucous membr. moist/pink Neck: Supple, No JVD Neuro: Alert, Non Focal, Other (He is bradykinetic. There is no tremor understand) Cardiovascular: Regular rate Respiratory: No respiratory distress Abdomen: Other (Moderately distended, slightly tight, nontender) Extremities: No clubbing, No edema, No tenderness/swelling - Results Results: Laboratory Results WBC 12.9 x10^3/uL (4.8-10.8) H 10/08/22 05:36 RBC 2.34 10^6/uL (4.70-6.10) L 10/08/22 05:36 Hgb 8.4 g/dL (14.0-18.0) L 10/08/22 05:36 Hct 24.5 % (42.0-52.0) L 10/08/22 05:36 MCV 104.7 fL (80.0-94.0) H 10/08/22 05:36 MCH 35.9 pg (27.0-31.0) H 10/08/22 05:36 MCHC 34.3 g/dL (32.0-36.0) 10/08/22 05:36 RDW 21.6 % (12.0-15.0) H 10/08/22 05:36 Plt Count 92 10^3/uL (130-450) L 10/08/22 05:36 MPV 10.6 fL (7.4-11.4) 10/08/22 05:36 Neut # (Auto) Not Reportable 10/08/22 05:36 Lymph # (Auto) Not Reportable 10/08/22 05:36 Cherry # (Auto) Not Reportable 10/08/22 05:36 Eos # (Auto) Not Reportable 10/08/22 05:36 Baso # (Auto) Not Reportable 10/08/22 05:36 Absolute Nucleated RBC Not Reportable 10/08/22 05:36 Total Counted 100 10/08/22 05:36 Band Neuts % (Manual) 0 % (0-10) 10/08/22 05:36 Abnorm Lymph % (Manual) 0 % 10/08/22 05:36 Nucleated RBC % Not Reportable 10/08/22 05:36 Neutrophils # (Manual) 8.9 10^3/uL (1.5-6.6) H 10/08/22 05:36 Lymphocytes # (Manual) 1.7 10^3/uL (1.5-3.5) 10/08/22 05:36 Monocytes # (Manual) 2.3 10^3/uL (0.0-1.0) H 10/08/22 05:36 Eosinophils # (Manual) 0.0 10^3/uL (0-0.7) 10/08/22 05:36 Basophils # (Manual) 0.0 10^3/uL (0-0.1) 10/08/22 05:36 Differential Comment MANUAL DIFFERENTIAL 10/08/22 05:36 Manual Slide Review Indicated 10/07/22 05:56 WBC Morphology NORMAL APPEARANCE (NORMAL) 10/08/22 05:36 Platelet Estimate DECREASED (<130,000) (NORMAL) 10/08/22 05:36 Platelet Morphology NORMAL APPEARANCE (NORMAL) 10/08/22 05:36 RBC Morph Micro Appear 2+ ANISOCYTOSIS (NORMAL) 1+ HYPOCHROMASIA (NORMAL) 1+ TARGET CELLS (NORMAL) 10/08/22 05:36 RBC Morph Micro Appear 2+ ANISOCYTOSIS (NORMAL) 1+ HYPOCHROMASIA (NORMAL) 1+ TARGET CELLS (NORMAL) 10/08/22 05:36 RBC Morph Micro Appear 2+ ANISOCYTOSIS (NORMAL) 1+ HYPOCHROMASIA (NORMAL) 1+ TARGET CELLS (NORMAL) 10/08/22 05:36 Sodium 130 mmol/L (135-145) L 10/08/22 05:36 Potassium 3.0 mmol/L (3.5-5.0) L 10/08/22 05:36 Chloride 95 mmol/L (101-111) L 10/08/22 05:36 Carbon Dioxide 27 mmol/L (21-32) 10/08/22 05:36 Anion Gap 8.0 (6-13) 10/08/22 05:36 BUN < 5 mg/dL (6-20) L 10/08/22 05:36 Creatinine 0.3 mg/dL (0.6-1.2) L 10/08/22 05:36 Estimated GFR (MDRD) 350 (>89) 10/08/22 05:36 Glucose 96 mg/dL (70-100) 10/08/22 05:36 Calcium 7.6 mg/dL (8.5-10.3) L 10/08/22 05:36 Phosphorus 2.0 mg/dL (2.5-4.6) L 10/07/22 05:56 Magnesium 1.8 mg/dL (1.7-2.8) 10/07/22 05:56 Total Bilirubin 15.9 mg/dL (0.2-1.0) H 10/06/22 14:41 AST 111 IU/L (10-42) H 10/06/22 14:41 ALT 27 IU/L (10-60) 10/06/22 14:41 Alkaline Phosphatase 177 IU/L (42-121) H 10/06/22 14:41 Ammonia 74.1 umol/L (7-35) H 10/06/22 14:41 Total Protein 6.9 g/dL (6.7-8.2) 10/06/22 14:41 Albumin 2.3 g/dL (3.2-5.5) L 10/06/22 14:41 Globulin 4.6 g/dL (2.1-4.2) H 10/06/22 14:41 Albumin/Globulin Ratio 0.5 (1.0-2.2) L 10/06/22 14:41 Ethyl Alcohol < 5.0 mg/dL 10/06/22 14:41 - Procedures Procedures: Procedures CLOSURE SKIN & SUBCUTANEOUS NEC (11/17/12)
[2022-10-08] MEDS ORDERED: POTASSIUM CHLOR 10 MEQ/100 ML 10 MEQ/100 ML BAG IV SCH (09:00)
[2022-10-08] MEDS ORDERED: FOLIC ACID 1 MG TABLET PO SCH (09:00)
[2022-10-08] MEDS ORDERED: POTASSIUM PHOSPHATE 15 MMOL in SODIUM CHLORIDE 0.9% 250 ML IV ONE (09:30)
[2022-10-08] MEDS: SERTRALINE 50 MG TABLET PO SCH (09:32)
[2022-10-08] MEDS: POTASSIUM CHLORIDE 10 MEQ CAPSULE PO SCH ×2 (09:32→17:13)
[2022-10-08] MEDS: chlordiazePOXIDE 5 MG CAPSULE PO SCH ×2 (09:32→20:46)
[2022-10-08] MEDS: METOPROLOL SUCCINATE 50 MG TABLET PO SCH (09:32)
[2022-10-08] MEDS: THIAMINE 100 MG TABLET PO SCH (09:32)
[2022-10-08] MEDS: SODIUM CHLORIDE FLUSH 0.9% 10 ML SYRINGE IVP SCH ×3 (09:33→23:59)
[2022-10-08] MEDS: NICOTINE 14 MG PATCH TOP SCH (09:33)
[2022-10-08] MEDS: POTASSIUM CHLOR 10 MEQ/100 ML 10 MEQ/100 ML BAG IV SCH ×2 (09:33→10:48)
[2022-10-08] MEDS: ONDANSETRON ODT 4 MG TABLET TL PRN ×2 (16:09→23:59)
[2022-10-08] MEDS: ONDANSETRON 4 MG/2 ML VIAL IVP PRN (18:50)
[2022-10-09] MEDS: CALCIUM CARBONATE CHEW 500 MG TABLET PO PRN ×4 (04:59→16:44)
[2022-10-09 05:20] LABS: BASOPHILS % (AUTO) 0.3 %; EOSINOPHILS % (AUTO) 0.8 %; HCT - HEMATOCRIT 24.6 % (42.0-52.0); HGB - HEMOGLOBIN 8.6 g/dL (14.0-18.0); LYMPHOCYTES % (AUTO) 12.5 %; MEAN CORPUSCULAR HEMOGLOBIN 37.2 pg (27.0-31.0); MEAN CORPUSCULAR VOLUME 106.5 fL (80.0-94.0); MEAN PLATELET VOLUME 10.8 fL (7.4-11.4); MONOCYTES % (AUTO) 17.9 %; NEUTROPHILS % (AUTO) 67.5 %; PLT - PLATELET COUNT 136 10^3/uL (130-450); RED BLOOD COUNT 2.31 10^6/uL (4.70-6.10); RED CELL DISTRIBUTION WIDTH 22.2 % (12.0-15.0); WHITE BLOOD COUNT 11.7 x10^3/uL (4.8-10.8)
[2022-10-09 05:22] LABS: ABNORMAL LYMPHS % (MANUAL) 0 %; BAND NEUTROPHILS % (MANUAL) 0 %
[2022-10-09 05:36] LABS: EOSINOPHILS # (MANUAL) 0.2 10^3/uL (0-0.7); LYMPHOCYTES # (MANUAL) 1.5 10^3/uL (1.5-3.5); LYMPHOCYTES % (MANUAL) 13 %; MONOCYTES # (MANUAL) 2.2 10^3/uL (0.0-1.0); NEUTROPHILS # (MANUAL) 7.7 10^3/uL (1.5-6.6)
[2022-10-09 05:37] LABS: DIFFERENTIAL COMMENT MANUAL DIFFERENTIAL; PLATELET ESTIMATE, MANUAL NORMAL (130-450,000) (NORMAL); PLATELET MORPHOLOGY NORMAL APPEARANCE (NORMAL); WBC MORPHOLOGY (MULTIPLE) NORMAL APPEARANCE (NORMAL)
[2022-10-09 05:41] LABS: BUN - BLOOD UREA NITROGEN < 5 mg/dL (6-20); CALCIUM 7.9 mg/dL (8.5-10.3); CARBON DIOXIDE - CO2 28 mmol/L (21-32); CHLORIDE 97 mmol/L (101-111); CREATININE 0.4 mg/dL (0.6-1.2); GFR - MDRD 251 (>89); GLUCOSE 98 mg/dL (70-100); MAGNESIUM 1.4 mg/dL (1.7-2.8); PHOSPHORUS 1.8 mg/dL (2.5-4.6); POTASSIUM 3.1 mmol/L (3.5-5.0); SODIUM 133 mmol/L (135-145)
[2022-10-09] MEDS: METOPROLOL SUCCINATE 50 MG TABLET PO SCH (08:36)
[2022-10-09] MEDS: chlordiazePOXIDE 5 MG CAPSULE PO SCH ×2 (08:36→20:29)
[2022-10-09] MEDS: PRENATAL VITAMIN TABLET PO SCH (08:36)
[2022-10-09] MEDS: SERTRALINE 50 MG TABLET PO SCH (08:37)
[2022-10-09] MEDS: THIAMINE 100 MG TABLET PO SCH (08:37)
[2022-10-09] MEDS: POTASSIUM CHLORIDE 10 MEQ CAPSULE PO SCH ×2 (08:37→16:38)
[2022-10-09] MEDS: NICOTINE 14 MG PATCH TOP SCH (08:37)
[2022-10-09] MEDS: SODIUM CHLORIDE FLUSH 0.9% 10 ML SYRINGE IVP SCH ×2 (08:38→16:38)
[2022-10-09] MEDS ORDERED: MAGNESIUM SULFATE 2 GRAM 2 GM/50 ML BAG IV ONE (11:50)
[2022-10-09] MEDS: ONDANSETRON 4 MG/2 ML VIAL IVP PRN (12:00)
[2022-10-09] MEDS: MAGNESIUM OXIDE 400 MG TABLET PO SCH (12:01)
[2022-10-09] MEDS: POTASSIUM PHOSPHATE 15 MMOL in SODIUM CHLORIDE 0.9% 250 ML IV SCH ×3 (13:44→22:52)
[2022-10-09] MEDS ORDERED: LACTULOSE 10 GM /15 ML UDC PO SCH ×2 (16:00→17:00)
[2022-10-09] MEDS: ONDANSETRON ODT 4 MG TABLET TL PRN (16:44)
--- NOTE | 2022-10-09 17:03 | PROVIDER PROGRESS NOTE ---
Assessment/Plan - Problem List (1) Nausea Assessment/Plan: He states that he is getting nauseated because of having GERD. He is requesting Tums for the GERD and antiemetics for the nausea His exam shows even further abdominal distention today and he is hypertympanic. I suspect some of this abdominal pressure is pushing up word and causing nausea Plan: Continue with Tums as needed and antiemetics as needed Will give simethicone for the excess gas Will order CT abdomen (2) Abdominal distension Assessment/Plan: His exam shows even further abdominal distention today and he is hypertympanic. I suspect some of this abdominal pressure is pushing up word and causing nausea Plan: Continue with Tums as needed and antiemetics as needed Will give simethicone for the excess gas Will order a STAT CT abdomen/pelvis 3) Hypokalemia He was admitted October 02 through October 06. Left A on the . The admission was for syncope in the context of acute intoxication. When he was evaluated in the emergency room he was most likely intoxicated, fell. He did not have a code. But he was identified as dehydrated, alcoholic hepatitis, hepatic en cephalopathy, a MELD score of 21. He did go through withdrawal but symptoms were manageable. He had minimal tachycardia and no tremulousness, seizures or delirium. When he left [facility], my main focus of treatment consisted of treating his electrolyte derangement of low calcium, magnesium, phosphorus and potassium. That continues to be the main reason we readmitted him yesterday afternoon. My suspicion is all of this is from the previous nausea and vomiting and the ongoing diarrhea. He is losing electrolytes faster than we can replace. He continues to have diarrhea once a day but the nausea and vomiting resolved. By the time of discharge yesterday, he was able to keep food down. And I am a ttributing that to the lactulose I am giving him. He is asking if we can discontinue the lactulose. I explained what the lactulose is for. He has psychomotor slowing, elevated ammonia level before he left A. Plan: We will again give IV K riders, for a K of 3.1 today (all labs were reviewed) Cont oral potassium 20 mEq twice daily with meals Follow BMP daily 4) Hypophosphatemia Phosphorus is also low. Plan: As above, he will be getting a K-Phos rider as well. 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 Then we changed his meds to p.o. on October 04. He progressed from n.p.o. to clear liquids and then a regular diet by the . MELD score is 21. AST has improved dsily. ALT has always been normal. Unfortunately bilirubin continues to rise. The last Hospitalist explained at length that this is not a good prognostic indicator. With time, if he stops drinking, his liver hopefully can slowly heal. He needs to follow-up with Hepatology in the outpatient setting. He needs to stop drinking alcohol. His mom was very upset that he was discharged AMA. She kept on stating that "how can he be discharged when he is still so sick". I explained to her that it was not my idea to discharge him. We felt that he should sta and the last Hospitalist educated her on individual rights for patients. Patients have the right to make bad decisions, and we cannot detain them against their will to rectify their bad decisions. As long as he is not an imminent threat to himself or to someone else, we really cannot detain someone. He was adamant that he wanted to leave AMA and called his mom to come pick him up. We are glad that she was able to convince him to come back. Plan: Continue low-salt diet at 2 g restriction Continue p.o. thiamine and folate. Continue to monitor his LFTs on a daily basis. Instead of Ativan IV or p.o., continue Librium 5 mg p.o. twice daily. I will taper this down in several days. I would like to resume his daily po Lasix but this would just add to his hypokalemia. 6) Alcoholic cirrhosis with thrombocytopenia On examination he has ascites but no anasarca. Belly is distended. Ammonia level was high but he does not appear encephalopathic. Lab work shows an elevated ammonia level. Macrocytosis. Thrombocytopenia. (CT of the abdomen does not show hepatosplenomegaly). In using a calculator for model for end-stage liver disease score in adults, the last hospitalist used a creatinine of 1.0. A bilirubin of 12.8. An INR of 1.6. His MELD score is 21. Lactulose was started October 03 mainly because of the high ammonia level not because he was encephalopathic. He had abdomen pelvis CT in June 2022 and October 02, 2022. He has hepatomegaly and a marked fatty liver. There is mild ascites. His biliary system is within normal limits. He does not have splenomegaly yet. There are no anatomic changes of portal hypertension yet. I did reach out to social work to see if there is anything we can do for this gentleman. He is at high risk for dying of his alcoholic liver disease because of continued severe alcohol abuse. We discussed the fact that this is his third admission in 3 months. He keeps on insisting that he can do this by himself. He has refused to go to rehab, refused to go to counseling, and keeps on insisting that he can do this alone. We are considering a DCR evaluation once he is done with his acute medical problems of the alcoholic hepatitis, and hypokalemia, and hyperammoniawhich need to be stabilized. He has daily diarrhea. He is willing to take Lactulose every other day. Currently the diarrhea is his main complaint. Plan: Cont Lactulose now 10 g every other day. Aim for a DCR evaluation this week if he is done with his acute medical problems. Aim for a normal K. I do not think we can get a normal bilirubin. That will take weeks. 7) Leukocytosis. There is no fever, no cough or congestion, no abdominal pain, no urgency, frequency, dysuria. CT of the abdomen has an enlarged liver with cirrhosis, gallbladder and biliary tree were within normal limits. No splenomegaly. No hydronephrosis. Thickening of the right colon with a small amount of ascites. But no true colitis. Bladder appears normal. Under distended. Urinalysis has glucosuria, bilirubinuria but there is no infection. Chest CT shows new thickening of the distal esophagus which could indicate esophageal injury. Bilateral pulmonary atelectasis versus pneumonia but no consolidation, pleural effusions. The pneumonia is described as a mild groundglass density within the bilateral lower lobes. As such, in looking for a source of infection causing the leukocytosis, nothing is definitive. The groundglass opacities in his lungs could be simple a telectasis. He does not have a UTI. Possible focal colitis of the right bowel versus trauma. But no diverticulitis or other colitis. Plan: If he does spike a temp, I would start empiric antibiotic therapy. 8) Depression/adjustment disorder. I do not know how much starting an SSRI can help him. We started him on Zoloft 25 mg a day with the last admission. When readmitted we increased the Zoloft to 50 mg a day. Plan: Monitor for signs and symptoms of depression or suicidal ideation. Response to medication is not expected for at least another month. Seek outpatient mental health provider Social work and I feel that we will be ordering a DCR evaluation when he is done with his acute medical problems. 9) Macrocytic anemia Free T4, free T3, TSH all normal. B12 level was normal in June 2022. Folate was normal in June and 2022. Most likely this is direct toxicity of alcohol on bone marrow. Plan: P.o. thiamine 100 mg daily. 10) Hyponatremia. Due to alcohol abuse, lack of p.o. intake. Dehydration. He received IV fluids for hydration. When his IV fluids were discontinued and he is on a low-salt diet due to ascites. No evidence of fluid overload yet. Plan: If he does need fluid restriction I would think that he would need restriction to 1500 cc a day total. But I am not doing that yet. - Current Meds Current Meds: Current Medications Generic Name Dose Route Start Last Admin Trade Name Freq PRN Reason Stop Dose Admin Calcium Carbonate/Glycine 500 mg 10/09/22 04:48 10/09/22 16:44 Calcium Carbonate Chew 500 Mg Tablet PO 500 mg TID PRN Administration Abdominal Pain Chlordiazepoxide HCl 5 mg 10/06/22 21:00 10/09/22 08:36 Chlordiazepoxide 5 Mg Capsule PO 5 mg BID MILTON Administration Potassium Phosphate 15 mmol/ 255 mls @ 63.75 mls/hr 10/09/22 12:30 10/09/22 13:44 Sodium Chloride IV 10/10/22 00:29 63.75 mls/hr Q4H MILTON Administration Ibuprofen 600 mg 10/06/22 14:31 10/08/22 16:08 Ibuprofen 600 Mg Tablet PO 600 mg Q6HR PRN Administration Pain 1 to 4 Magnesium Oxide 400 mg 10/09/22 12:00 10/09/22 12:01 Magnesium Oxide 400 Mg Tablet PO 400 mg DAILYWM MILTON Administration Metoprolol Succinate 50 mg 10/07/22 09:00 10/09/22 08:36 Metoprolol Succinate 50 Mg Tablet PO 50 mg DAILY MILTON Administration Nicotine 1 patch 10/07/22 13:00 10/09/22 08:37 Nicotine 14 Mg Patch TOP 1 patch DAILY MILTON Administration Ondansetron HCl 4 mg 10/06/22 14:31 10/09/22 16:44 Ondansetron Odt 4 Mg Tablet TL 4 mg Q6HR PRN Administration Nausea / Vomiting Ondansetron HCl 4 mg 10/06/22 14:31 10/09/22 12:00 Ondansetron 4 Mg/2 Ml Vial IVP 4 mg Q6HR PRN Administration Nausea / Vomiting Potassium Chloride 20 meq 10/08/22 08:39 10/09/22 16:38 Potassium Chloride 10 Meq Capsule PO 20 meq BIDWM [facility] Administration Multivit/Folic Acid/Iron 1 tab 10/09/22 08:00 10/09/22 08:36 Vitamin Tablet PO 1 tab DAILYWM MIL[facility] Administration Sertraline HCl 50 mg 10/07/22 09:00 10/09/22 08:37 Sertraline 50 Mg Tablet PO 50 mg DAILY MIL[facility] Administration Sodium Chloride 10 ml 10/06/22 17:00 10/09/22 16:38 Sodium Chloride Flush 0.9% 10 Ml Syringe IVP 10 ml 0100,0900,1700 MILTON Administration Thiamine HCl 100 mg 10/07/22 09:00 10/09/22 08:37 Thiamine 100 Mg Tablet PO 100 mg DAILY MILTON Administration - Lab Result Fish Bone Diagrams: 10/12/22 08:05 10/12/22 08:05 - Additional Planning My Orders: My Active Orders 10/09/22 08:00 Vitamin [Trinatal Rx 1] 1 tab PO DAILYWM 10/09/22 12:00 Magnesium Oxide [Mag Ox] 400 mg PO DAILYWM 10/09/22 12:30 Potassium Phosphate 15 mmol Sodium Chloride 0.9% [Normal Saline 0.9%] 250 ml IV Q4H 10/09/22 17:00 ABDOMEN/PELVIS W [CT] Stat Simethicone [Mylicon] 80 mg PO 0800,1200,1700,2100 10/09/22 17:00 Lactulose [Enulose] 10 gm PO Q72H 10/10/22 Breakfast DIET [Dysphagia - Minced and Moist] [DIET] 10/10/22 05:00 PHOSPHORUS [CHEM] DAILYLAB 10/11/22 05:00 PHOSPHORUS [CHEM] DAILYLAB Subjective - Subjective Patient Reports: Diarrhea (He has crampy pain intermittently that causes explosive diarrhea), Heartburn, Nausea Objective Vital Signs: Vital Signs - 24 hr 10/08/22 10/09/22 10/09/22 23:55 07:53 16:31 Temperature 36.6 C 36.7 C 37.0 C Heart Rate [ 100 97 96 Brachial] Respiratory 18 20 16 Rate Blood Pressure 102/56 L [Left Brachial artery] Blood Pressure 124/79 118/70 [Right Brachial artery] O2 Saturation 92 94 96 Oxygen O2 Source Room air I&O (Last 24 Hrs): Intake and Output Totals x24h 10/07/22 10/08/22 10/09/22 23:59 23:59 23:59 Intake Total 3013.333 3778.2 1070 Output Total 300 350 Balance 3013.333 3478.2 720 General: Mild distress HEENT: Mucous membr. moist/pink, Other (Icteric) Neck: Supple Neuro: Alert, Non Focal, Other (No nystagmus, no tremor) Cardiovascular: Regular rate Respiratory: No respiratory distress Abdomen: Other (Moderately distended, very tense, diminished bowel sounds, no guarding or rebound, hypertympanic to percussion) Extremities: No clubbing, No edema, No tenderness/swelling - Results Results: Laboratory Results WBC 11.7 x10^3/uL (4.8-10.8) H 10/09/22 04:51 RBC 2.31 10^6/uL (4.70-6.10) L 10/09/22 04:51 Hgb 8.6 g/dL (14.0-18.0) L 10/09/22 04:51 Hct 24.6 % (42.0-52.0) L 10/09/22 04:51 MCV 106.5 fL (80.0-94.0) H 10/09/22 04:51 MCH 37.2 pg (27.0-31.0) H 10/09/22 04:51 MCHC 35.0 g/dL (32.0-36.0) 10/09/22 04:51 RDW 22.2 % (12.0-15.0) H 10/09/22 04:51 Plt Count 136 10^3/uL (130-450) 10/09/22 04:51 MPV 10.8 fL (7.4-11.4) 10/09/22 04:51 Neut # (Auto) Not Reportable 10/09/22 04:51 Lymph # (Auto) Not Reportable 10/09/22 04:51 Hunt # (Auto) Not Reportable 10/09/22 04:51 Eos # (Auto) Not Reportable 10/09/22 04:51 Baso # (Auto) Not Reportable 10/09/22 04:51 Absolute Nucleated RBC Not Reportable 10/09/22 04:51 Total Counted 100 10/09/22 04:51 Band Neuts % (Manual) 0 % (0-10) 10/09/22 04:51 Abnorm Lymph % (Manual) 0 % 10/09/22 04:51 Nucleated RBC % Not Reportable 10/09/22 04:51 Neutrophils # (Manual) 7.7 10^3/uL (1.5-6.6) H 10/09/22 04:51 Lymphocytes # (Manual) 1.5 10^3/uL (1.5-3.5) 10/09/22 04:51 Monocytes # (Manual) 2.2 10^3/uL (0.0-1.0) H 10/09/22 04:51 Eosinophils # (Manual) 0.2 10^3/uL (0-0.7) 10/09/22 04:51 Basophils # (Manual) 0.0 10^3/uL (0-0.1) 10/09/22 04:51 Differential Comment MANUAL DIFFERENTIAL 10/09/22 04:51 Manual Slide Review Indicated 10/07/22 05:56 WBC Morphology NORMAL APPEARANCE (NORMAL) 10/09/22 04:51 Platelet Estimate NORMAL (130-450,000) (NORMAL) 10/09/22 04:51 Platelet Morphology NORMAL APPEARANCE (NORMAL) 10/09/22 04:51 RBC Morph Micro Appear 2+ ANISOCYTOSIS (NORMAL) 2+ HYPOCHROMASIA (NORMAL) 10/09/22 04:51 RBC Morph Micro Appear 2+ ANISOCYTOSIS (NORMAL) 2+ HYPOCHROMASIA (NORMAL) 10/09/22 04:51 Sodium 133 mmol/L (135-145) L 10/09/22 04:51 Potassium 3.1 mmol/L (3.5-5.0) L 10/09/22 04:51 Chloride 97 mmol/L (101-111) L 10/09/22 04:51 Carbon Dioxide 28 mmol/L (21-32) 10/09/22 04:51 Anion Gap 8.0 (6-13) 10/09/22 04:51 BUN < 5 mg/dL (6-20) L 10/09/22 04:51 Creatinine 0.4 mg/dL (0.6-1.2) L 10/09/22 04:51 Estimated GFR (MDRD) 251 (>89) 10/09/22 04:51 Glucose 98 mg/dL (70-100) 10/09/22 04:51 Calcium 7.9 mg/dL (8.5-10.3) L 10/09/22 04:51 Phosphorus 1.8 mg/dL (2.5-4.6) L 10/09/22 04:51 Magnesium 1.4 mg/dL (1.7-2.8) L 10/09/22 04:51 Total Bilirubin 15.9 mg/dL (0.2-1.0) H 10/06/22 14:41 AST 111 IU/L (10-42) H 10/06/22 14:41 ALT 27 IU/L (10-60) 10/06/22 14:41 Alkaline Phosphatase 177 IU/L (42-121) H 10/06/22 14:41 Ammonia 74.1 umol/L (7-35) H 10/06/22 14:41 Total Protein 6.9 g/dL (6.7-8.2) 10/06/22 14:41 Albumin 2.3 g/dL (3.2-5.5) L 10/06/22 14:41 Globulin 4.6 g/dL (2.1-4.2) H 10/06/22 14:41 Albumin/Globulin Ratio 0.5 (1.0-2.2) L 10/06/22 14:41 Ethyl Alcohol < 5.0 mg/dL 10/06/22 14:41 - Procedures Procedures: Procedures CLOSURE SKIN & SUBCUTANEOUS NEC (11/17/12)
[2022-10-09] MEDS: SIMETHICONE CHEW 80 MG TABLET PO SCH ×2 (17:25→20:29)
[2022-10-09] MEDS ORDERED: iohexoL-300 100 ML VIAL ONE (19:39)
--- NOTE | 2022-10-09 20:19 | CT Report ---
PROCEDURE: ABDOMEN/PELVIS W INDICATIONS: Worsening nausea, worsening abd distension CONTRAST: 100mL Omni 300 TECHNIQUE: After the administration of IV contrast, 5 mm thick sections acquired from the diaphragms to the symp hysis. 5 mm thick coronal and sagittal reformats were acquired. For radiation dose reduction, the f ollowing was used: automated exposure control, adjustment of mA and/or kV according to patient size. COMPARISON: CT abdomen pelvis 10/02/2022. FINDINGS: Image quality: Excellent. Lung bases and heart: Unremarkable. Liver: Prominent hepatic steatosis is present. Low-attenuation foci are present, unchanged. Liver is overall enlarged measuring 26.5 cm. Gallbladder and biliary tree: Bladder wall appears underlying thickened without significant interval change. Spleen: No splenomegaly. Pancreas: No pancreatic ductal dilation. Adrenals: No adrenal nodule. Kidneys and ureters: No hydronephrosis. No renal cystic lesion which requires follow up. No solid mas s. Bowel and peritoneum: No bowel distension. There is a persistent appearance of colonic thickening mos t notable in the right and transverse colon with mild surrounding inflammatory change appearing sligh tly worse when compared to prior exam. Mild to moderate perihepatic and perisplenic fluid are present including dependent pelvic fluid., Minimally more prominent when compared to prior exam. Hiatal chelsea ia is present. Lymph nodes: No central or retroperitoneal adenopathy. Vessels: No infrarenal aortic aneurysm. PELVIS Reproductive organs: Unremarkable. Bladder: No abnormal wall thickening, accounting for underdistension. Pelvic lymph nodes: No pelvic adenopathy by size criteria. Bones: No aggressive osseous abnormality. Other: No significant ventral or inguinal hernia. IMPRESSION: Abdominal pelvic ascites slightly increased compared to prior exam. Persistent thickening and inflammatory change, slightly worse in the right and transverse colon sugge stive of colitis. This could be secondary to infection/inflammation or less likely ischemic. No absce ss. Hepatomegaly with steatosis. Reviewed by: Luda Raymond MD on 10/09/2022 8:17 PM PDT Approved by: Luda Raymond MD on 10/09/2022 8:17 PM PDT Station ID: [id number]
[2022-10-10] MEDS: SODIUM CHLORIDE FLUSH 0.9% 10 ML SYRINGE IVP SCH ×3 (00:01→16:39)
[2022-10-10] MEDS ORDERED: iohexoL-300 100 ML VIAL IVP ONE (00:09)
[2022-10-10] MEDS ORDERED: DIATRIZOATE MEGLU/DIATRIZO SOD 30 ML BOTTLE PO ONE (00:10)
[2022-10-10] MEDS: CALCIUM CARBONATE CHEW 500 MG TABLET PO PRN ×3 (00:45→16:38)
[2022-10-10 05:39] LABS: BASOPHILS % (AUTO) 0.3 %; EOSINOPHILS % (AUTO) 0.9 %; HCT - HEMATOCRIT 27.6 % (42.0-52.0); HGB - HEMOGLOBIN 9.6 g/dL (14.0-18.0); LYMPHOCYTES % (AUTO) 13.1 %; MEAN CORPUSCULAR HEMOGLOBIN 37.2 pg (27.0-31.0); MEAN CORPUSCULAR HGB CONC 34.8 g/dL (32.0-36.0); MEAN PLATELET VOLUME 10.4 fL (7.4-11.4); MONOCYTES % (AUTO) 16.4 %; NEUTROPHILS % (AUTO) 68.1 %; PLT - PLATELET COUNT 200 10^3/uL (130-450); RED BLOOD COUNT 2.58 10^6/uL (4.70-6.10); RED CELL DISTRIBUTION WIDTH 22.8 % (12.0-15.0); WHITE BLOOD COUNT 14.7 x10^3/uL (4.8-10.8)
[2022-10-10 05:45] LABS: ABNORMAL LYMPHS % (MANUAL) 0 %; BAND NEUTROPHILS % (MANUAL) 0 %
[2022-10-10 05:56] LABS: BUN - BLOOD UREA NITROGEN < 5 mg/dL (6-20); CALCIUM 8.1 mg/dL (8.5-10.3); CARBON DIOXIDE - CO2 27 mmol/L (21-32); CHLORIDE 96 mmol/L (101-111); CREATININE 0.4 mg/dL (0.6-1.2); GFR - MDRD 251 (>89); GLUCOSE 100 mg/dL (70-100); PHOSPHORUS 3.9 mg/dL (2.5-4.6); POTASSIUM 3.2 mmol/L (3.5-5.0); SODIUM 133 mmol/L (135-145)
[2022-10-10 05:58] LABS: EOSINOPHILS # (MANUAL) 0.1 10^3/uL (0-0.7); LYMPHOCYTES # (MANUAL) 2.4 10^3/uL (1.5-3.5); LYMPHOCYTES % (MANUAL) 16 %; MONOCYTES # (MANUAL) 1.2 10^3/uL (0.0-1.0)
[2022-10-10 06:00] LABS: DIFFERENTIAL COMMENT MANUAL DIFFERENTIAL; PLATELET ESTIMATE, MANUAL NORMAL (130-450,000) (NORMAL); PLATELET MORPHOLOGY NORMAL APPEARANCE (NORMAL); WBC MORPHOLOGY (MULTIPLE) NORMAL APPEARANCE (NORMAL)
--- NOTE | 2022-10-10 07:48 | PROVIDER PROGRESS NOTE ---
Assessment/Plan - Problem List (1) Colitis Assessment/Plan: His CT abd/pelvis was done last evening read overnight, and shows colitis of the ascending and transverse colon. There is also slightly more ascites than on last CT. I had already changed last evening's dinner from Reg diet to minced and moist, because of yesterday's new nausea. Plan: We will change his diet to low fiber and no red meat or milk products I will start him on IV Cipro and IV Flagyl empirically I will also add probiotics 3) Hypokalemia He was admitted October 02 through October 06. Left AMA on the . The admission was for syncope in the context of acute intoxication. When he was evaluated in the emergency room he was most likely intoxicated, fell. He did not have a code. But he was identified as dehydrated, alcoholic hepatitis, hepatic encephalopathy, a MELD score of 21. He did go through withdrawal but symptoms were manageable. He had minimal tachycardia and no tremulousness, seizures or delirium. When he left [place], my main focus of treatment consisted of treating his electrolyte derangement of low calcium, magnesium, phosphorus and potassium. That continues to be the main reason we readmitted him yesterday afternoon. My suspicion is all of this is from the previous nausea and vomiting and the ongoing diarrhea. He is losing electrolytes faster than we can replace. He continues to have diarrhea once a day but the nausea and vomiting resolved. By the time of discharge yesterday, he was able to keep food down. And I am attributing that to the lactulose I am giving him. He is asking if we can discontinue the lactulose. I explained what the lactulose is for. He has psychomotor slowing, elevated ammonia level before he left AMA. Plan: We will again give IV K riders, for a K of 3.2 today (all labs were reviewed) Cont oral potassium 20 mEq twice daily with meals Follow BMP daily 4) Hypophosphatemia Phosphorus is also low. Plan: As above, he will be getting a K-Phos rider as well. 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 Then we changed his meds to p.o. on October 04. He progressed from n.p.o. to clear liquids and then a regular diet by the . MELD score is 21. AST has improved dsily. ALT has always been normal. Unfortunately bilirubin continues to rise. The last Hospitalist explained at length that this is not a good prognostic indicator. With time, if he stops drinking, his liver hopefully can slowly heal. He needs to follow-up with Hepatology in the outpatient setting. He needs to stop drinking alcohol. His mom was very upset that he was discharged AMA. She kept on stating that "how can he be discharged when he is still so s ick". I explained to her that it was not my idea to discharge him. We felt that he should sta and the last Hospitalist educated her on individual rights for patients. Patients have the right to make bad decisions, and we cannot detain them against their will to rectify their bad decisions. As long as he is not an imminent threat to himself or to someone else, we really cannot detain someone. He was adamant that he wanted to leave AMA and called his mom to come pick him up. We are glad that she was able to convince him to come back. Plan: Continue low-salt diet at 2 g restriction Continue p.o. thiamine and folate. Continue to monitor his LFTs on a daily basis. Instead of Ativan IV or p.o., continue Librium 5 mg p.o. twice daily. I will taper this down in several days. I would like to resume his daily po Lasix but this would just add to his hypokalemia. 6) Alcoholic cirrhosis with thrombocytopenia On examination he has ascites but no anasarca. Belly is distended. Ammonia level was high but he does not appear encephalopathic. Lab work shows an elevated ammonia level. Macrocytosis. Thrombocytopenia. (CT of the abdomen does not show hepatosplenomegaly). In using a calculator for model for end-stage liver disease score in adults, the last hospitalist used a creatinine of 1.0. A bilirubin of 12.8. An INR of 1.6. His MELD score is 21. Lactulose was started October 03 mainly because of the high ammonia level not because he was encephalopathic. He had abdomen pelvis CT in June 2022 and October 02, 2022. He has hepatomegaly and a marked fatty liver. There is mild ascites. His biliary system is within normal limits. He does not have splenomegaly yet. There are no anatomic changes of portal hypertension yet. I did reach out to social work to see if there is anything we can do for this gentleman. He is at high risk for dying of his alcoholic liver disease because of continued severe alcohol abuse. We discussed the fact that this is his third admission in 3 months. He keeps on insisting that he can do this by himself. He has refused to go to rehab, refused to go to counseling, and keeps on insisting that he can do this alone. We are considering a DCR evaluation once he is done with his acute medical problems of the alcoholic hepatitis, and hypokalemia, and hyperammoniawhich need to be stabilized. He has daily diarrhea. He was willing to take Lactulose every other day. Currently the diarrhea is his main complaint. Plan: I will change Lactulose now to every 3rd day, due to the amount of watery diarrhea Aim for a DCR evaluation this week if he is done with his acute medical problems. Aim for a normal K. I do not think we can get a normal bilirubin. That will take weeks. 7) Leukocytosis. There was no fever, no cough or congestion, no abdominal pain, no urgency, frequency, dysuria. The initial CT of the abdomen showed an enlarged liver with cirrhosis, gallbladder and biliary tree were within normal limits. No splenomegaly. No hydronephrosis. Thickening of the right colon with a small amount of ascites. But no true colitis was diagnosed then. Bladder appears normal. He does not have a UTI. Chest CT showed new thickening of the distal esophagus which could indicate esophageal injury. Bilateral pulmonary atelectasis versus pneumonia but no consolidation, pleural effusions. The pneumonia is described as a mild groundglass density within the bilateral lower lobes, could be simple atelectasis As such, in looking for a source of infection causing the leukocytosis, nothing was definitive. His CT abd/pelvis was done last evening read overnight, and shows colitis of the ascending and transverse colon Plan: I will start him on IV Cipro and IV Flagyl empirically Follow WBC daily 8) Depression/adjustment disorder. I do not know how much starting an SSRI can help him. We started him on Zoloft 25 mg a day with the last admission. When readmitted we increased the Zoloft to 50 mg a day. Plan: Monitor for signs and symptoms of depression or suicidal ideation. Response to medication is not expected for at least another month. Seek outpatient mental health provider Social work and I feel that we will be ordering a DCR evaluation when he is done with his acute medical problems. 9) Macrocytic anemia Free T4, free T3, TSH all normal. B12 level was normal in June 2022. Folate was normal in June and 2022. Most likely this is direct toxicity of alcohol on bone marrow. Plan: P.o. thiamine 100 mg daily. 10) Hyponatremia. Due to alcohol abuse, lack of p.o. intake. Dehydration. He received IV fluids for hydration. When his IV fluids were discontinued and he is on a low-salt diet due to ascites. No evidence of fluid overload yet. Plan: If he does need fluid restriction I would think that he would need restriction to 1500 cc a day total. But I am not doing that yet. - Current Meds Current Meds: Current Medications Generic Name Dose Route Start Last Admin Trade Name Freq PRN Reason Stop Dose Admin Calcium Carbonate/Glycine 500 mg 10/09/22 04:48 10/10/22 00:45 Calcium Carbonate Chew 500 Mg Tablet PO 500 mg TID PRN Administration Abdominal Pain Chlordiazepoxide HCl 5 mg 10/06/22 21:00 10/09/22 20:29 Chlordiazepoxide 5 Mg Capsule PO 5 mg BID MILTON Administration Ibuprofen 600 mg 10/06/22 14:31 10/08/22 16:08 Ibuprofen 600 Mg Tablet PO 600 mg Q6HR PRN Administration Pain 1 to 4 Magnesium Oxide 400 mg 10/09/22 12:00 10/09/22 12:01 Magnesium Oxide 400 Mg Tablet PO 400 mg DAILYWM MILTON Administration Metoprolol Succinate 50 mg 10/07/22 09:00 10/09/22 08:36 Metoprolol Succinate 50 Mg Tablet PO 50 mg DAILY MILTON Administration Nicotine 1 patch 10/07/22 13:00 10/09/22 08:37 Nicotine 14 Mg Patch TOP 1 patch DAILY MILTON Administration Ondansetron HCl 4 mg 10/06/22 14:31 10/09/22 16:44 Ondansetron Odt 4 Mg Tablet TL 4 mg Q6HR PRN Administration Nausea / Vomiting Ondansetron HCl 4 mg 10/06/22 14:31 10/09/22 12:00 Ondansetron 4 Mg/2 Ml Vial IVP 4 mg Q6HR PRN Administration Nausea / Vomiting Potassium Chloride 20 meq 10/08/22 08:39 10/09/22 16:38 Potassium Chloride 10 Meq Capsule PO 20 meq BIDWM MILTON Administration Multivit/Folic Acid/Iron 1 tab 10/09/22 08:00 10/09/22 08:36 Vitamin Tablet PO 1 tab DAILYWM MILTON Administration Sertraline HCl 50 mg 10/07/22 09:00 10/09/22 08:37 Sertraline 50 Mg Tablet PO 50 mg DAILY MILTON Administration Simethicone 80 mg 10/09/22 17:00 10/09/22 20:29 Simethicone Chew 80 Mg Tablet PO 80 mg 0800,1200,1700,2100 MILTON Administration Sodium Chloride 10 ml 10/06/22 17:00 10/10/22 00:01 Sodium Chloride Flush 0.9% 10 Ml Syringe IVP Not Given 0100,0900,1700 MILTON Thiamine HCl 100 mg 10/07/22 09:00 10/09/22 08:37 Thiamine 100 Mg Tablet PO 100 mg DAILY MILTON Administration - Lab Result Fish Bone Diagrams: 10/12/22 08:05 10/12/22 08:05 - Additional Planning My Orders: My Active Orders 10/09/22 08:00 Vitamin [Trinatal Rx 1] 1 tab PO DAILYWM 10/09/22 12:00 Magnesium Oxide [Mag Ox] 400 mg PO DAILYWM 10/09/22 17:00 Simethicone [Mylicon] 80 mg PO 0800,1200,1700,2100 10/10/22 Breakfast DIET [Dysphagia - Minced and Moist] [DIET] 10/10/22 06:00 LIVER PANEL [CHEM] Routine 10/10/22 08:00 Ciprofloxacin/D5W 400 mg/200 ml q12h Ciprofloxacin 400 mg/200 ml [Cipro 400 mg/200 ml] 400 mg in 200 ml IV Q12H Saccharomyces Boulardii [Florastor] 250 mg PO BIDWM metroNIDAZOLE/NS 500 mg/100 mL Q8H metroNIDAZOLE 500 MG/100 ML [Flagyl 500 mg/100 ml] 500 mg in 100 ml IV Q8H 10/10/22 09:00 Lactulose [Enulose] 10 gm PO Q72H 10/10/22 Lunch DIET [Soft (Low Fiber) Diet] [DIET] 10/11/22 05:00 CBC - COMP BLD CT W/AUTO DIFF [HEME] DAILYLAB COMPREHENSIVE METABOLIC PANEL [CHEM] DAILYLAB PHOSPHORUS [CHEM] DAILYLAB Subjective - Subjective Patient Reports: Diarrhea (No appetitie) Objective Vital Signs: Vital Signs - 24 hr 10/09/22 10/09/22 10/09/22 07:53 16:31 23:50 Temperature 36.7 C 37.0 C 36.5 C Heart Rate [ 97 96 98 Brachial] Respiratory 20 16 18 Rate Blood Pressure 102/56 L 110/64 [Left Brachial artery] Blood Pressure 118/70 [Right Brachial artery] O2 Saturation 94 96 92 10/10/22 07:32 Temperature 36.8 C Heart Rate [ 103 H Brachial] Respiratory 20 Rate Blood Pressure [Left Brachial artery] Blood Pressure 120/75 [Right Brachial artery] O2 Saturation 92 Oxygen O2 Source Room air I&O (Last 24 Hrs): Intake and Output Totals x24h 10/08/22 10/09/22 10/10/22 23:59 23:59 23:59 Intake Total 3778.2 2050.000 755 Output Total 300 350 Balance 3478.2 1700.000 755 General: Alert, Oriented x3 HEENT: Mucous membr. moist/pink, Other (icteric) Neck: Supple Neuro: Alert, Non Focal, Other (No nystagmus or tremor) Cardiovascular: Regular rate Respiratory: No respiratory distress Abdomen: Other (moderately distended, hypertympanic, no tenderness or reboind) Extremities: No clubbing, No edema, No tenderness/swelling - Results Results: Laboratory Results WBC 14.7 x10^3/uL (4.8-10.8) H 10/10/22 05:26 RBC 2.58 10^6/uL (4.70-6.10) L 10/10/22 05:26 Hgb 9.6 g/dL (14.0-18.0) L 10/10/22 05:26 Hct 27.6 % (42.0-52.0) L 10/10/22 05:26 MCV 107.0 fL (80.0-94.0) H 10/10/22 05:26 MCH 37.2 pg (27.0-31.0) H 10/10/22 05:26 MCHC 34.8 g/dL (32.0-36.0) 10/10/22 05:26 RDW 22.8 % (12.0-15.0) H 10/10/22 05:26 Plt Count 200 10^3/uL (130-450) 10/10/22 05:26 MPV 10.4 fL (7.4-11.4) 10/10/22 05:26 Neut # (Auto) Not Reportable 10/10/22 05:26 Lymph # (Auto) Not Reportable 10/10/22 05:26 [place] # (Auto) Not Reportable 10/10/22 05:26 Eos # (Auto) Not Reportable 10/10/22 05:26 Baso # (Auto) Not Reportable 10/10/22 05:26 Absolute Nucleated RBC Not Reportable 10/10/22 05:26 Total Counted 100 10/10/22 05:26 Band Neuts % (Manual) 0 % (0-10) 10/10/22 05:26 Abnorm Lymph % (Manual) 0 % 10/10/22 05:26 Nucleated RBC % Not Reportable 10/10/22 05:26 Neutrophils # (Manual) 11.0 10^3/uL (1.5-6.6) H 10/10/22 05:26 Lymphocytes # (Manual) 2.4 10^3/uL (1.5-3.5) 10/10/22 05:26 Monocytes # (Manual) 1.2 10^3/uL (0.0-1.0) H 10/10/22 05:26 Eosinophils # (Manual) 0.1 10^3/uL (0-0.7) 10/10/22 05:26 Basophils # (Manual) 0.0 10^3/uL (0-0.1) 10/10/22 05:26 Differential Comment MANUAL DIFFERENTIAL 10/10/22 05:26 Manual Slide Review Indicated 10/07/22 05:56 WBC Morphology NORMAL APPEARANCE (NORMAL) 10/10/22 05:26 Platelet Estimate NORMAL (130-450,000) (NORMAL) 10/10/22 05:26 Platelet Morphology NORMAL APPEARANCE (NORMAL) 10/10/22 05:26 RBC Morph Micro Appear 2+ ANISOCYTOSIS (NORMAL) 1+ HYPOCHROMASIA (NORMAL) 1+ TARGET CELLS (NORMAL) 10/10/22 05:26 RBC Morph Micro Appear 2+ ANISOCYTOSIS (NORMAL) 1+ HYPOCHROMASIA (NORMAL) 1+ TARGET CELLS (NORMAL) 10/10/22 05:26 RBC Morph Micro Appear 2+ ANISOCYTOSIS (NORMAL) 1+ HYPOCHROMASIA (NORMAL) 1+ TARGET CELLS (NORMAL) 10/10/22 05:26 Sodium 133 mmol/L (135-145) L 10/10/22 05:26 Potassium 3.2 mmol/L (3.5-5.0) L 10/10/22 05:26 Chloride 96 mmol/L (101-111) L 10/10/22 05:26 Carbon Dioxide 27 mmol/L (21-32) 10/10/22 05:26 Anion Gap 10.0 (6-13) 10/10/22 05:26 BUN < 5 mg/dL (6-20) L 10/10/22 05:26 Creatinine 0.4 mg/dL (0.6-1.2) L 10/10/22 05:26 Estimated GFR (MDRD) 251 (>89) 10/10/22 05:26 Glucose 100 mg/dL (70-100) 10/10/22 05:26 Calcium 8.1 mg/dL (8.5-10.3) L 10/10/22 05:26 Phosphorus 3.9 mg/dL (2.5-4.6) 10/10/22 05:26 Magnesium 1.4 mg/dL (1.7-2.8) L 10/09/22 04:51 Total Bilirubin 15.9 mg/dL (0.2-1.0) H 10/06/22 14:41 AST 111 IU/L (10-42) H 10/06/22 14:41 ALT 27 IU/L (10-60) 10/06/22 14:41 Alkaline Phosphatase 177 IU/L (42-121) H 10/06/22 14:41 Ammonia 74.1 umol/L (7-35) H 10/06/22 14:41 Total Protein 6.9 g/dL (6.7-8.2) 10/06/22 14:41 Albumin 2.3 g/dL (3.2-5.5) L 10/06/22 14:41 Globulin 4.6 g/dL (2.1-4.2) H 10/06/22 14:41 Albumin/Globulin Ratio 0.5 (1.0-2.2) L 10/06/22 14:41 Ethyl Alcohol < 5.0 mg/dL 10/06/22 14:41 - Procedures Procedures: Procedures CLOSURE SKIN & SUBCUTANEOUS NEC (11/17/12)
[2022-10-10 08:04] LABS: ALBUMIN 2.2 g/dL (3.2-5.5); BILIRUBIN,DIRECT 8.2 mg/dL (0.1-0.5); TOTAL PROTEIN 6.4 g/dL (6.7-8.2)
[2022-10-10] MEDS: NICOTINE 14 MG PATCH TOP SCH (08:52)
[2022-10-10] MEDS: SIMETHICONE CHEW 80 MG TABLET PO SCH ×4 (08:53→20:38)
[2022-10-10] MEDS: chlordiazePOXIDE 5 MG CAPSULE PO SCH ×2 (08:53→20:38)
[2022-10-10] MEDS: POTASSIUM CHLORIDE 10 MEQ CAPSULE PO SCH ×2 (08:53→16:38)
[2022-10-10] MEDS: PRENATAL VITAMIN TABLET PO SCH (08:53)
[2022-10-10] MEDS: SACCHAROMYCES BOULARDII 250 MG CAPSULE PO SCH ×2 (08:54→16:38)
[2022-10-10] MEDS: SERTRALINE 50 MG TABLET PO SCH (08:54)
[2022-10-10] MEDS: metroNIDAZOLE 500 MG/100 ML 500 MG/100 ML BAG IV SCH ×2 (08:54→16:38)
[2022-10-10] MEDS: THIAMINE 100 MG TABLET PO SCH (08:54)
[2022-10-10] MEDS: METOPROLOL SUCCINATE 50 MG TABLET PO SCH (08:54)
[2022-10-10] MEDS: MAGNESIUM OXIDE 400 MG TABLET PO SCH (08:55)
[2022-10-10] MEDS: CIPROFLOXACIN 400 MG/200 ML 400 MG/200 ML BAG IV SCH ×2 (08:55→20:38)
[2022-10-10] MEDS ORDERED: LACTULOSE 10 GM /15 ML UDC PO SCH (09:00)
[2022-10-10] MEDS: ONDANSETRON 4 MG/2 ML VIAL IVP PRN (12:49)
[2022-10-10] MEDS: FUROSEMIDE 20 MG/2 ML VIAL IVP SCH (13:27)
[2022-10-10] MEDS: PANTOPRAZOLE 40 MG TABLET PO SCH (13:27)
[2022-10-11] MEDS: SODIUM CHLORIDE FLUSH 0.9% 10 ML SYRINGE IVP SCH ×3 (00:30→17:17)
[2022-10-11] MEDS: metroNIDAZOLE 500 MG/100 ML 500 MG/100 ML BAG IV SCH ×3 (00:30→17:16)
[2022-10-11] MEDS: IBUPROFEN 600 MG TABLET PO PRN ×2 (00:30→09:04)
[2022-10-11 05:18] LABS: BASOPHILS % (AUTO) 0.3 %; EOSINOPHILS % (AUTO) 0.8 %; HCT - HEMATOCRIT 24.1 % (42.0-52.0); HGB - HEMOGLOBIN 8.3 g/dL (14.0-18.0); LYMPHOCYTES % (AUTO) 14.5 %; MEAN CORPUSCULAR HEMOGLOBIN 37.4 pg (27.0-31.0); MEAN CORPUSCULAR HGB CONC 34.4 g/dL (32.0-36.0); MEAN CORPUSCULAR VOLUME 108.6 fL (80.0-94.0); MEAN PLATELET VOLUME 10.4 fL (7.4-11.4); MONOCYTES % (AUTO) 18.6 %; PLT - PLATELET COUNT 163 10^3/uL (130-450); RED BLOOD COUNT 2.22 10^6/uL (4.70-6.10); RED CELL DISTRIBUTION WIDTH 22.5 % (12.0-15.0); WHITE BLOOD COUNT 10.8 x10^3/uL (4.8-10.8)
[2022-10-11 05:23] LABS: ABNORMAL LYMPHS % (MANUAL) 0 %
[2022-10-11 05:40] LABS: BAND NEUTROPHILS % (MANUAL) 3 %; LYMPHOCYTES # (MANUAL) 1.3 10^3/uL (1.5-3.5); LYMPHOCYTES % (MANUAL) 12 %; MONOCYTES # (MANUAL) 1.7 10^3/uL (0.0-1.0); NEUTROPHILS # (MANUAL) 7.8 10^3/uL (1.5-6.6)
[2022-10-11 05:41] LABS: DIFFERENTIAL COMMENT MANUAL DIFFERENTIAL; PLATELET ESTIMATE, MANUAL NORMAL (130-450,000) (NORMAL)
[2022-10-11 05:42] LABS: ALBUMIN 1.9 g/dL (3.2-5.5); ALBUMIN/GLOBULIN RATIO 0.5 (1.0-2.2); ALKALINE PHOSPHATASE 134 IU/L (42-121); ALT ALANINE AMINOTRANSFERASE 25 IU/L (10-60); AST ASPARTATE AMINOTRANSFERASE 79 IU/L (10-42); BILIRUBIN,TOTAL 10.6 mg/dL (0.2-1.0); BUN - BLOOD UREA NITROGEN < 5 mg/dL (6-20); CALCIUM 7.6 mg/dL (8.5-10.3); CARBON DIOXIDE - CO2 28 mmol/L (21-32); CHLORIDE 95 mmol/L (101-111); CREATININE 0.5 mg/dL (0.6-1.2); GFR - MDRD 194 (>89); GLUCOSE 98 mg/dL (70-100); PHOSPHORUS 3.8 mg/dL (2.5-4.6); POTASSIUM 2.7 mmol/L (3.5-5.0); SODIUM 131 mmol/L (135-145); TOTAL PROTEIN 5.6 g/dL (6.7-8.2)
[2022-10-11] MEDS: PANTOPRAZOLE 40 MG TABLET PO SCH (06:43)
[2022-10-11] MEDS: FUROSEMIDE 20 MG/2 ML VIAL IVP SCH ×2 (06:44→13:23)
[2022-10-11] MEDS: CIPROFLOXACIN 400 MG/200 ML 400 MG/200 ML BAG IV SCH ×2 (08:53→20:11)
[2022-10-11] MEDS: MAGNESIUM OXIDE 400 MG TABLET PO SCH (08:53)
[2022-10-11] MEDS: SIMETHICONE CHEW 80 MG TABLET PO SCH ×4 (08:53→22:31)
[2022-10-11] MEDS: SERTRALINE 50 MG TABLET PO SCH (08:53)
[2022-10-11] MEDS: SACCHAROMYCES BOULARDII 250 MG CAPSULE PO SCH ×2 (08:54→17:16)
[2022-10-11] MEDS: NICOTINE 14 MG PATCH TOP SCH (08:54)
[2022-10-11] MEDS: PRENATAL VITAMIN TABLET PO SCH (08:54)
[2022-10-11] MEDS: THIAMINE 100 MG TABLET PO SCH (08:54)
[2022-10-11] MEDS: METOPROLOL SUCCINATE 50 MG TABLET PO SCH (08:54)
[2022-10-11] MEDS: chlordiazePOXIDE 5 MG CAPSULE PO SCH ×2 (08:54→22:31)
[2022-10-11] MEDS: POTASSIUM CHLORIDE 10 MEQ CAPSULE PO SCH ×2 (08:57→17:16)
[2022-10-11] MEDS: POTASSIUM CHLOR 10 MEQ/100 ML 10 MEQ/100 ML BAG IV SCH ×4 (11:14→14:22)
--- NOTE | 2022-10-11 11:19 | DISCHARGE SUMMARY ---
"Discharge Summary Admit Date: 10/02/22 Discharge Date: 10/06/22 Discharging Provider: Armida Espinoza MD Code Status: Attempt Resuscitation Condition at Discharge: Serious - DIAGNOSES Discharge Diagnoses with Status of Each Condition: 1. Syncope due to #2 and 3 2. Acute alcohol intoxication 3. Alcoholic hepatitis 4. Alcoholic cirrhosis with thrombocytopenia 5. Nausea and vomiting 6. Leukocytosis 7. Hypokalemia and low chloride 8. GERD 9. Depression 10. Macrocytic anemia 11. Hyponatremia 12. Hypothyroidism on TSH but normal free T3 and free T4 - HPI History of Present Illness: Unable to obtain history from pt d/t pt's clinical condition. History obtained from staff, chart. Patient is in [place]. Physician is in [place]. Pt's TRAIN DIRECTOR, Mary Ann Mohr, is at bedside. 32 yo M with h/o ETOH abuse with h/o ETOH W/D, alcoholic Hepatitis, Hyperthyroidism, GERD/Gastritis, Depression, Tobacco abuse presented to the ER via EMS for AMS. Pt was previously hospitalized at [facility] for ETOH W/D from 08/25-08/28/22. Per report, pt has been drinking ETOH heavily, including today. He had a fall 1 week ago and c/o L side chest/abdo pain. He had tripped and fell at home today after drinking ETOH and hit his head. His mother thought that he could be and called EMS and asked for CPR, but CPR not needed, as he was breathing and had a pulse. Pt has not been following up with doctors, as recommended. Pt currently drowsy, but arousable. He is occasionally opening his eyes, but not answering questions; unable to get any history from him. In the ER, HR 101, Spo2 86% RA-93% 3L NC O2, WBC 16.7, Hgb 11.2, MCV 96.5, Na 129, K 2.2, Mg 1.2, Ca, ionized 0.8, Bili 9.1, AST 175, ALT 219, NH3 903, TSH 1.6, ETOH 448, UDS pending. C-spine Xray: neg CT Head: NAD CT Chest: esophageal thickening, B/L pulmonary Madelyn CT Abdo: Hepatic Steatosis, small ascites Pt was given Mag SO4 2 gm, Protonix 40 mg IV, KCL 20 mEq IV, and Banana Bag in the ER. History - Past Medical History Cardiovascular: reports: None Respiratory: reports: None Neuro: reports: None Endocrine/Autoimmune: reports: None GI: reports: GERD : reports: None HEENT: reports: None Psych: reports: Depression Musculoskeletal: reports: None Derm: reports: None MRSA Hx?: No - CONSULTS | PROCEDURES Procedures: Abdomen pelvis CT with right colonic thickening, nonspecific bowel injury is a possibility. Small ascites. Hepatic steatosis. Chest CT with thickening of the distal esophagus indicating esophageal injury. Bilateral pulmonary atelectasis versus pneumonia. Possible pulmonary contusion. Hepatic steatosis. Head CT no acute process Cervical spine CT no fracture - HOSPITAL COURSE Hospital Course: The patient was treated with IV fluids for hydration. IV antiemetics because of the nausea and vomiting. Liver enzymes were noted to be elevated. Noted to be mildly cirrhotic with elevated l ammonia and as such started on lactulose. He did not have severe alcohol withdrawal. He did have tachycardia, and just felt horrible. But no hallucinations, tremors, and required minimal sedation with benzodiazepine. Leukocytosis was evaluated to make sure there is no infection and none was found. Electrolytes slowly corrected. Liver enzymes remain elevated. MELD score was calculated at 21. Patient was still significantly hypokalemic and requiring potassium riders as well as supplementation of magnesium and calcium when he left A. His mother picked him up. Later, his mother called twice after his discharge protesting his discharge, stating that it was unsafe. I completely agreed with her. I explained to her what against medical advice is. She also was under the impression that we could involuntarily detain people. I explained to her the illegality of that. She was very unhappy about her son's situation and I sympathized. She was going to speak to her son to see if she can convince him to come back - ALLERGIES Allergies/Adverse Reactions: Allergies Allergy/AdvReac Type Severity Reaction Status Date / Time No Known Drug Allergies Allergy Verified 08/25/22 09:58 - MEDICATIONS Home Medications: Ambulatory Orders Medication Instructions Recorded Confirmed Omeprazole Magnesium 20 mg PO QDAC 07/02/22 10/06/22 Metoprolol Succinate [Toprol Xl] 50 mg PO DAILY #30 tab 08/28/22 10/06/22 Thiamine [Vitamin B-1] 100 mg PO DAILY #30 tab 08/28/22 10/06/22 Lactulose 15 ml PO DAILY #450 ml 10/06/22 10/06/22 Potassium Chloride [K-Dur] 20 meq PO TIDWM #90 tab 10/06/22 10/06/22 Sertraline [Zoloft] 50 mg PO DAILY #60 tab 10/06/22 10/06/22 - LABS Result Diagrams: 10/11/22 05:00 10/11/22 05:00"
[2022-10-11] MEDS: CALCIUM CARBONATE CHEW 500 MG TABLET PO PRN (17:25)
--- NOTE | 2022-10-11 18:58 | PROVIDER PROGRESS NOTE ---
Assessment/Plan - Problem List (1) Colitis Assessment/Plan: His CT abd/pelvis was done last evening read overnight, and shows colitis of the ascending and transverse colon. There is also slightly more ascites than on last CT. I had already changed last evening's dinner from Reg diet to minced and moist, because of yesterday's new nausea. Plan: Cont low fiber and no red meat or milk products diet Cont IV Cipro and IV Flagyl empirically Cont probiotics (2) Hypokalemia He was admitted October 02 through October 06. Left AMA on the . The admission was for syncope in the context of acute intoxication. When he was evaluated in the emergency room he was most likely intoxicated, fell. He did not have a code. But he was identified as dehydrated, alcoholic hepatitis, hepatic en cephalopathy, a MELD score of 21. He did go through withdrawal but symptoms were manageable. He had minimal tachycardia and no tremulousness, seizures or delirium. When he left AMA, my main focus of treatment consisted of treating his electrolyte derangement of low calcium, magnesium, phosphorus and potassium. That continues to be the main reason we readmitted him yesterday afternoon. My suspicion is all of this is from the previous nausea and vomiting and the ongoing diarrhea. He is losing electrolytes faster than we can replace. He continues to have diarrhea once a day but the nausea and vomiting resolved. By the time of discharge yesterday, he was able to keep food down. And I am a ttributing that to the lactulose I am giving him. He is asking if we can discontinue the lactulose. I explained what the lactulose is for. He has psychomotor slowing, elevated ammonia level before he left AMA. Plan: We will again give IV K riders, for a K of 2.7 today (all labs were reviewed) Cont oral potassium 20 mEq twice daily with meals Follow BMP daily 4) Hypophosphatemia Phosphorus is also intermittently low. Plan: As above, he will be getting a K-Phos rider as well. 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 Then we changed his meds to p.o. on October 04. He progressed from n.p.o. to clear liquids and then a regular diet by the . MELD score is 21. AST has improved dsily. ALT has always been normal. Unfortunately bilirubin continues to rise. The last Hospitalist explained at length that this is not a good prognostic indicator. With time, if he stops drinking, his liver hopefully can slowly heal. He needs to follow-up with Hepatology in the outpatient setting. He needs to stop drinking alcohol. His mom was very upset that he was discharged AMA. She kept on stating that "how can he be discharged when he is still so sick". I explained to her that it was not my idea to discharge him. We felt that he should sta and the last Hospitalist educated her on individual rights for patients. Patients have the right to make bad decisions, and we cannot detain them against their will to rectify their bad decisions. As long as he is not an imminent threat to himself or to someone else, we really cannot detain someone. He was adamant that he wanted to leave AMA and called his mom to come pick him up. We are glad that she was able to convince him to come back. Plan: Continue low-salt diet at 2 g restriction Continue p.o. thiamine and folate. Continue to monitor his LFTs intermittently He has been on Librium 5 mg p.o. twice daily. I will taper this down today, stop it tomorrow. CIWA protocol will be stopped I will decrease iv to po Lasix, given the higher amt of ascites seen on the last CT, but this will add to his hypokalemia. Follow BMP daily 6) Alcoholic cirrhosis with thrombocytopenia On examination he has ascites but no anasarca. Belly is distended. Ammonia level was high but he does not appear encephalopathic. Lab work shows an elevated ammonia level. Macrocytosis. Thrombocytopenia. (CT of the abdomen does not show hepatosplenomegaly). In using a calculator for model for end-stage liver disease score in adults, the last hospitalist used a creatinine of 1.0. A bilirubin of 12.8. An INR of 1.6. His MELD score is 21. Lactulose was started October 03 mainly because of the high ammonia level not because he was encephalopathic. He had abdomen pelvis CT in June 2022 and October 02, 2022. He has hepatomegaly and a marked fatty liver. There is mild ascites. His biliary system is within normal limits. He does not have splenomegaly yet. There are no anatomic changes of portal hypertension yet. I did reach out to social work to see if there is anything we can do for this gentleman. He is at high risk for dying of his alcoholic liver disease because of continued severe alcohol abuse. We discussed the fact that this is his third admission in 3 months. He keeps on insisting that he can do this by himself. He has refused to go to rehab, refused to go to counseling, and keeps on in sisting that he can do this alone. We are considering a DCR evaluation once he is done with his acute medical problems of the alcoholic hepatitis, and hypokalemia, and hyperammoniawhich need to be stabilized. He has daily diarrhea. He was willing to take Lactulose every other day. Currently the diarrhea is his main complaint. Plan: I will stop his Lactulose, due to the amount of watery diarrhea Aim for a DCR evaluation this week if he is done with his acute medical problems. Aim for a normal K. I do not think we can get a normal bilirubin. That will take weeks. 7) Leukocytosis. There was no fever, no cough or congestion, no abdominal pain, no urgency, frequency, dysuria. The initial CT of the abdomen showed an enlarged liver with cirrhosis, gallbladder and biliary tree were within normal limits. No splenomegaly. No hydronephrosis. Thickening of the right colon with a small amount of ascites. But no true colitis was diagnosed then. Bladder appears normal. He does not have a UTI. Chest CT showed new thickening of the distal esophagus which could indicate esophageal injury. Bilateral pulmonary atelectasis versus pneumonia but no consolidation, pleural effusions. The pneumonia is described as a mild groundglass density within the bilateral lower lobes, could be simple atelectasis As such, in looking for a source of infection causing the leukocytosis, nothing was definitive. His CT abd/pelvis showed colitis of the ascending and transverse colon Plan: Cont on IV Cipro and IV Flagyl empirically Follow WBC daily 8) Depression/adjustment disorder. I do not know how much starting an SSRI can help him. We started him on Zoloft 25 mg a day with the last admission. When readmitted we increased the Zoloft to 50 mg a day. Plan: Monitor for signs and symptoms of depression or suicidal ideation. Response to medication is not expected for at least another month. Seek outpatient mental health provider Social work and I feel that we will be ordering a DCR evaluation when he is done with his acute medical problems. 9) Macrocytic anemia Free T4, free T3, TSH all normal. B12 level was normal in June 2022. Folate was normal in June and 2022. Most likely this is direct toxicity of alcohol on bone marrow. Plan: P.o. thiamine 100 mg daily. 10) Hyponatremia. Due to alcohol abuse, lack of p.o. intake. Dehydration. He received IV fluids for hydration. When his IV fluids were discontinued and he is on a low-salt diet due to ascites. No evidence of fluid overload yet. Plan: He is on Lasix now, watch BMP daily - Current Meds Current Meds: Current Medications Generic Name Dose Route Start Last Admin Trade Name Freq PRN Reason Stop Dose Admin Calcium Carbonate/Glycine 500 mg 10/09/22 04:48 10/11/22 17:25 Calcium Carbonate Chew 500 Mg Tablet PO 500 mg TID PRN Administration Abdominal Pain Chlordiazepoxide HCl 5 mg 10/06/22 21:00 10/11/22 08:54 Chlordiazepoxide 5 Mg Capsule PO 10/12/22 12:00 5 mg BID MILTON Administration Furosemide 20 mg 10/10/22 14:00 10/11/22 13:23 Furosemide 20 Mg/2 Ml Vial IVP 10/11/22 23:55 Not Given BIDDIURETIC MILTON Ciprofloxacin 400 mg in 200 mls @ 200 mls/hr 10/10/22 08:00 10/11/22 10:09 Cipro 400 Mg/200 Ml IV Infused Q12H MILTON Infusion Metronidazole 500 mg in 100 mls @ 100 mls/hr 10/10/22 08:00 10/11/22 18:44 Flagyl 500 Mg/100 Ml IV Infused Q8H MILTON Infusion Ibuprofen 600 mg 10/06/22 14:31 10/11/22 09:04 Ibuprofen 600 Mg Tablet PO 600 mg Q6HR PRN Administration Pain 1 to 4 Magnesium Oxide 400 mg 10/09/22 12:00 10/11/22 08:53 Magnesium Oxide 400 Mg Tablet PO 400 mg DAILYWM MILTON Administration Metoprolol Succinate 50 mg 10/07/22 09:00 10/11/22 08:54 Metoprolol Succinate 50 Mg Tablet PO 50 mg DAILY MILTON Administration Ondansetron HCl 4 mg 10/06/22 14:31 10/09/22 16:44 Ondansetron Odt 4 Mg Tablet TL 4 mg Q6HR PRN Administration Nausea / Vomiting Ondansetron HCl 4 mg 10/06/22 14:31 10/10/22 12:49 Ondansetron 4 Mg/2 Ml Vial IVP 4 mg Q6HR PRN Administration Nausea / Vomiting Pantoprazole Sodium 40 mg 10/10/22 12:00 10/11/22 06:43 Pantoprazole 40 Mg Tablet PO 40 mg QDAC MILTON Administration Potassium Chloride 30 meq 10/11/22 17:00 10/11/22 17:16 Potassium Chloride 10 Meq Capsule PO 30 meq BIDWM MILTON Administration Multivit/Folic Acid/Iron 1 tab 10/09/22 08:00 10/11/22 08:54 Vitamin Tablet PO 1 tab DAILYWM MILTON Administration Saccharomyces Boulardii 250 mg 10/10/22 08:00 10/11/22 17:16 Saccharomyces Boulardii 250 Mg Capsule PO 250 mg BIDWM MILTON Administration Sertraline HCl 50 mg 10/07/22 09:00 10/11/22 08:53 Sertraline 50 Mg Tablet PO 50 mg DAILY MILTON Administration Simethicone 80 mg 10/09/22 17:00 10/11/22 17:16 Simethicone Chew 80 Mg Tablet PO 80 mg 0800,1200,1700,2100 MILTON Administration Sodium Chloride 10 ml 10/06/22 17:00 10/11/22 17:17 Sodium Chloride Flush 0.9% 10 Ml Syringe IVP 10 ml 0100,0900,1700 MILTON Administration Thiamine HCl 100 mg 10/07/22 09:00 10/11/22 08:54 Thiamine 100 Mg Tablet PO 100 mg DAILY MILTON Administration - Lab Result Fish Bone Diagrams: 10/12/22 08:05 10/12/22 08:05 - Additional Planning My Orders: My Active Orders 10/11/22 17:00 Potassium Chloride [Micro-K] 30 meq PO BIDWM 10/11/22 17:59 Miscellaenous Nursing Order [RC] QSHIFT 10/12/22 05:00 AMMONIA [CHEM] DAILYLAB BMP - BASIC METABOLIC PANEL [CHEM] DAILYLAB CBC - COMP BLD CT W/AUTO DIFF [HEME] DAILYLAB LIVER PANEL [CHEM] DAILYLAB MAGNESIUM [CHEM] DAILYLAB 10/13/22 05:00 AMMONIA [CHEM] DAILYLAB BMP - BASIC METABOLIC PANEL [CHEM] DAILYLAB CBC - COMP BLD CT W/AUTO DIFF [HEME] DAILYLAB LIVER PANEL [CHEM] DAILYLAB MAGNESIUM [CHEM] DAILYLAB 10/14/22 05:00 BMP - BASIC METABOLIC PANEL [CHEM] DAILYLAB 10/15/22 05:00 BMP - BASIC METABOLIC PANEL [CHEM] DAILYLAB Subjective - Subjective Patient Reports: Resting Comfortably, Diarrhea (Still having watery stool, has refused the lactulose for 3 days because of this. No abdominal pain, no nausea or vomiting) Objective Vital Signs: Vital Signs - 24 hr 10/10/22 10/10/22 10/11/22 21:53 23:51 08:26 Temperature 37.2 C 37.1 C 36.7 C Heart Rate [ 96 96 88 Brachial] Respiratory 16 18 18 Rate Blood Pressure 107/68 [Left Brachial artery] Blood Pressure 112/59 L 108/65 [Right Brachial artery] O2 Saturation 93 93 93 10/11/22 16:12 Temperature 36.7 C Heart Rate [ 89 Brachial] Respiratory 20 Rate Blood Pressure [Left Brachial artery] Blood Pressure 106/67 [Right Brachial artery] O2 Saturation 91 L Oxygen O2 Source Room air I&O (Last 24 Hrs): Intake and Output Totals x24h 10/09/22 10/10/22 10/11/22 23:59 23:59 23:59 Intake Total 2050.000 3035 2366.667 Output Total 350 150 Balance 4168.693 1853 2366.667 General: Alert, Oriented x3 HEENT: Mucous membr. moist/pink, Other (Icteric) Neck: Supple, No JVD Neuro: Alert, Non Focal, Other (No nystagmus, no tremor) Cardiovascular: Regular rate Respiratory: No respiratory distress Abdomen: Other (Moderately distended, moderately tense, nontender) Extremities: No clubbing, No edema, No tenderness/swelling - Results Results: Laboratory Results WBC 10.8 x10^3/uL (4.8-10.8) 10/11/22 05:00 RBC 2.22 10^6/uL (4.70-6.10) L 10/11/22 05:00 Hgb 8.3 g/dL (14.0-18.0) L 10/11/22 05:00 Hct 24.1 % (42.0-52.0) L 10/11/22 05:00 MCV 108.6 fL (80.0-94.0) H 10/11/22 05:00 MCH 37.4 pg (27.0-31.0) H 10/11/22 05:00 MCHC 34.4 g/dL (32.0-36.0) 10/11/22 05:00 RDW 22.5 % (12.0-15.0) H 10/11/22 05:00 Plt Count 163 10^3/uL (130-450) 10/11/22 05:00 MPV 10.4 fL (7.4-11.4) 10/11/22 05:00 Neut # (Auto) Not Reportable 10/11/22 05:00 Lymph # (Auto) Not Reportable 10/11/22 05:00 [place] # (Auto) Not Reportable 10/11/22 05:00 Eos # (Auto) Not Reportable 10/11/22 05:00 Baso # (Auto) Not Reportable 10/11/22 05:00 Absolute Nucleated RBC Not Reportable 10/11/22 05:00 Total Counted 100 10/11/22 05:00 Band Neuts % (Manual) 3 % (0-10) 10/11/22 05:00 Abnorm Lymph % (Manual) 0 % 10/11/22 05:00 Nucleated RBC % Not Reportable 10/11/22 05:00 Neutrophils # (Manual) 7.8 10^3/uL (1.5-6.6) H 10/11/22 05:00 Lymphocytes # (Manual) 1.3 10^3/uL (1.5-3.5) L 10/11/22 05:00 Monocytes # (Manual) 1.7 10^3/uL (0.0-1.0) H 10/11/22 05:00 Eosinophils # (Manual) 0.0 10^3/uL (0-0.7) 10/11/22 05:00 Basophils # (Manual) 0.0 10^3/uL (0-0.1) 10/11/22 05:00 Differential Comment MANUAL DIFFERENTIAL 10/11/22 05:00 Manual Slide Review Indicated 10/07/22 05:56 WBC Morphology NORMAL APPEARANCE (NORMAL) 10/10/22 05:26 Platelet Estimate NORMAL (130-450,000) (NORMAL) 10/11/22 05:00 Platelet Morphology NORMAL APPEARANCE (NORMAL) 10/10/22 05:26 RBC Morph Micro Appear 2+ ANISOCYTOSIS (NORMAL) 1+ MACROCYTOSIS (NORMAL) 2+ HYPOCHROMASIA (NORMAL) 1+ POLYCHROMASIA (NORMAL) 1+ OVALOCYTES (NORMAL) 10/11/22 05:00 RBC Morph Micro Appear 2+ ANISOCYTOSIS (NORMAL) 1+ MACROCYTOSIS (NORMAL) 2+ HYPOCHROMASIA (NORMAL) 1+ POLYCHROMASIA (NORMAL) 1+ OVALOCYTES (NORMAL) 10/11/22 05:00 RBC Morph Micro Appear 2+ ANISOCYTOSIS (NORMAL) 1+ MACROCYTOSIS (NORMAL) 2+ HYPOCHROMASIA (NORMAL) 1+ POLYCHROMASIA (NORMAL) 1+ OVALOCYTES (NORMAL) 10/11/22 05:00 RBC Morph Micro Appear 2+ ANISOCYTOSIS (NORMAL) 1+ MACROCYTOSIS (NORMAL) 2+ HYPOCHROMASIA (NORMAL) 1+ POLYCHROMASIA (NORMAL) 1+ OVALOCYTES (NORMAL) 10/11/22 05:00 RBC Morph Micro Appear 2+ ANISOCYTOSIS (NORMAL) 1+ MACROCYTOSIS (NORMAL) 2+ HYPOCHROMASIA (NORMAL) 1+ POLYCHROMASIA (NORMAL) 1+ OVALOCYTES (NORMAL) 10/11/22 05:00 Sodium 131 mmol/L (135-145) L 10/11/22 05:00 Potassium 2.7 mmol/L (3.5-5.0) L 10/11/22 05:00 Chloride 95 mmol/L (101-111) L 10/11/22 05:00 Carbon Dioxide 28 mmol/L (21-32) 10/11/22 05:00 Anion Gap 8.0 (6-13) 10/11/22 05:00 BUN < 5 mg/dL (6-20) L 10/11/22 05:00 Creatinine 0.5 mg/dL (0.6-1.2) L 10/11/22 05:00 Estimated GFR (MDRD) 194 (>89) 10/11/22 05:00 Glucose 98 mg/dL (70-100) 10/11/22 05:00 Calcium 7.6 mg/dL (8.5-10.3) L 10/11/22 05:00 Phosphorus 3.8 mg/dL (2.5-4.6) 10/11/22 05:00 Magnesium 1.4 mg/dL (1.7-2.8) L 10/09/22 04:51 Total Bilirubin 10.6 mg/dL (0.2-1.0) H 10/11/22 05:00 Direct Bilirubin 8.2 mg/dL (0.1-0.5) H 10/10/22 05:26 AST 79 IU/L (10-42) H 10/11/22 05:00 ALT 25 IU/L (10-60) 10/11/22 05:00 Alkaline Phosphatase 134 IU/L (42-121) H 10/11/22 05:00 Ammonia 74.1 umol/L (7-35) H 10/06/22 14:41 Total Protein 5.6 g/dL (6.7-8.2) L 10/11/22 05:00 Albumin 1.9 g/dL (3.2-5.5) L 10/11/22 05:00 Globulin 3.7 g/dL (2.1-4.2) 10/11/22 05:00 Albumin/Globulin Ratio 0.5 (1.0-2.2) L 10/11/22 05:00 Stl C. diff Tox B Gene NEGATIVE (NEGATIVE) 10/11/22 16:35 Ethyl Alcohol < 5.0 mg/dL 10/06/22 14:41 - Procedures Procedures: Procedures CLOSURE SKIN & SUBCUTANEOUS NEC (11/17/12)
[2022-10-12] MEDS: SODIUM CHLORIDE FLUSH 0.9% 10 ML SYRINGE IVP SCH ×4 (00:23→23:41)
[2022-10-12] MEDS: metroNIDAZOLE 500 MG/100 ML 500 MG/100 ML BAG IV SCH ×4 (00:23→23:40)
[2022-10-12] MEDS: IBUPROFEN 600 MG TABLET PO PRN ×3 (03:20→22:24)
[2022-10-12] MEDS: PANTOPRAZOLE 40 MG TABLET PO SCH (05:34)
[2022-10-12 08:11] LABS: BASOPHILS % (AUTO) 0.3 %; EOSINOPHILS # (AUTO) 0.1 10^3/uL (0.0-0.7); EOSINOPHILS % (AUTO) 0.4 %; HCT - HEMATOCRIT 27.2 % (42.0-52.0); HGB - HEMOGLOBIN 9.1 g/dL (14.0-18.0); LYMPHOCYTES # (AUTO) 1.5 10^3/uL (1.5-3.5); LYMPHOCYTES % (AUTO) 12.6 %; MEAN CORPUSCULAR HEMOGLOBIN 36.8 pg (27.0-31.0); MEAN CORPUSCULAR HGB CONC 33.5 g/dL (32.0-36.0); MEAN CORPUSCULAR VOLUME 110.1 fL (80.0-94.0); MEAN PLATELET VOLUME 10.2 fL (7.4-11.4); MONOCYTES # (AUTO) 1.8 10^3/uL (0.0-1.0); MONOCYTES % (AUTO) 15.2 %; NEUTROPHILS # (AUTO) 8.3 10^3/uL (1.5-6.6); PLT - PLATELET COUNT 205 10^3/uL (130-450); RED BLOOD COUNT 2.47 10^6/uL (4.70-6.10); RED CELL DISTRIBUTION WIDTH 21.8 % (12.0-15.0); WHITE BLOOD COUNT 11.7 x10^3/uL (4.8-10.8)
[2022-10-12 08:19] LABS: SLIDE REVIEW? Indicated
[2022-10-12 08:38] LABS: ALKALINE PHOSPHATASE 137 IU/L (42-121); ALT ALANINE AMINOTRANSFERASE 27 IU/L (10-60); AST ASPARTATE AMINOTRANSFERASE 83 IU/L (10-42); BUN - BLOOD UREA NITROGEN < 5 mg/dL (6-20); CALCIUM 7.9 mg/dL (8.5-10.3); CARBON DIOXIDE - CO2 30 mmol/L (21-32); CHLORIDE 98 mmol/L (101-111); CREATININE 0.4 mg/dL (0.6-1.2); GFR - MDRD 251 (>89); GLUCOSE 97 mg/dL (70-100); MAGNESIUM 1.6 mg/dL (1.7-2.8); POTASSIUM 3.5 mmol/L (3.5-5.0); SODIUM 134 mmol/L (135-145)
[2022-10-12] MEDS: THIAMINE 100 MG TABLET PO SCH (08:49)
[2022-10-12] MEDS: PRENATAL VITAMIN TABLET PO SCH (08:49)
[2022-10-12] MEDS: CIPROFLOXACIN 400 MG/200 ML 400 MG/200 ML BAG IV SCH ×2 (08:49→19:30)
[2022-10-12] MEDS: MAGNESIUM OXIDE 400 MG TABLET PO SCH (08:50)
[2022-10-12] MEDS: METOPROLOL SUCCINATE 50 MG TABLET PO SCH (08:50)
[2022-10-12] MEDS: SERTRALINE 50 MG TABLET PO SCH (08:50)
[2022-10-12] MEDS: chlordiazePOXIDE 5 MG CAPSULE PO SCH (08:50)
[2022-10-12] MEDS: SIMETHICONE CHEW 80 MG TABLET PO SCH ×4 (08:51→20:04)
[2022-10-12] MEDS: SACCHAROMYCES BOULARDII 250 MG CAPSULE PO SCH ×2 (08:51→15:52)
[2022-10-12] MEDS: POTASSIUM CHLORIDE 10 MEQ CAPSULE PO SCH ×2 (08:51→15:52)
[2022-10-12] MEDS ORDERED: MAGNESIUM SULFATE 2 GRAM 2 GM/50 ML BAG IV ONE (09:31)
--- NOTE | 2022-10-12 15:29 | PROVIDER PROGRESS NOTE ---
Assessment/Plan - Problem List (1) Colitis Assessment/Plan: His CT abd/pelvis was done last evening read overnight, and shows colitis of the ascending and transverse colon. There is also slightly more ascites than on last CT. I had already changed last evening's dinner from Reg diet to minced and moist, because of yesterday's new nausea. He had daily diarrhea. I stopped his Lactulose, due to the amount of watery diarrhea. Has been on antibiotics for 3 days. Today is the first day with formed stool Plan: Cont low fiber and no red meat or milk products diet Cont IV Cipro and IV Flagyl empirically Cont probiotics (2) Hypokalemia He was admitted October 02 through October 06. Left AMA on the . The admission was for syncope in the context of acute intoxication. When he was evaluated in the emergency room he was most likely intoxicated, fell. He did not have a code. But he was identified as dehydrated, alcoholic hepatitis, hepatic encephalopathy, a MELD score of 21. He did go through withdrawal but symptoms were manageable. He had minimal tachycardia and no tremulousness, seizures or delirium. When he left [place], my main focus of treatment consisted of treating his electrolyte derangement of low calcium, magnesium, phosphorus and potassium. That continues to be the main reason we readmitted him yesterday afternoon. My suspicion is all of this is from the previous nausea and vomiting and the ongoing diarrhea. He is losing electrolytes faster than we can replace. He continued to have diarrhea but the nausea and vomiting resolved. Plan: K is 3.5 today (all labs were reviewed). Cont oral potassium 20 mEq twice daily with meals Follow BMP daily 4) Hypomagnesemia Mg is also intermittently low. 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 Then we changed his meds to p.o. on October 04. He progressed from n.p.o. to clear liquids and then a regular diet by the . MELD score was 21. AST has improved daily. ALT has always been normal. Unfortunately bilirubin continues to rise. The last Hospitalist explained at length that this is not a good prognostic indicator. With time, if he stops drinking, his liver hopefully can slowly heal. He needs to follow-up with Hepatology in the outpatient setting. He needs to stop drinking alcohol. His mom was very upset that he was discharged AMA. She kept on stating that "how can he be discharged when he is still so sick". I explained to her that it was not my idea to discharge him. We felt that he should sta and the last Hospitalist educated her on individual rights for patients. Patients have the right to make bad decisions, and we cannot detain them against their will to rectify their bad decisions. As long as he is not an imminent threat to himself or to someone else, we really cannot detain someone. He was adamant that he wanted to leave AMA and called his mom to come pick him up. We are glad that she was able to convince him to come back. Plan: Continue low-salt diet at 2 g restriction Continue p.o. thiamine and folate. Continue to monitor his LFTs intermittently He has been on Librium 5 mg p.o. twice daily. I will taper this down today, stop it tomorrow. CIWA protocol will be stopped I will decrease iv to po Lasix, given the higher amt of ascites seen on the last CT, but this will add to his hypokalemia. Follow BMP daily 6) Alcoholic cirrhosis with thrombocytopenia On examination he has ascites but no anasarca. Belly is distended. Ammonia level was high but he does not appear encephalopathic. Lab work shows an elevated ammonia level. Macrocytosis. Thrombocytopenia. (CT of the abdomen does not show hepatosplenomegaly). In using a calculator for model for end-stage liver disease score in adults, the last hospitalist used a creatinine of 1.0. A bilirubin of 12.8. An INR of 1.6. His MELD score is 21. Lactulose was started October 03 mainly because of the high ammonia level not because he was encephalopathic. He had abdomen pelvis CT in June 2022 and October 02, 2022. He has hepatomegaly and a marked fatty liver. There is mild ascites. His biliary system is within normal limits. He does not have splenomegaly yet. There are no anatomic changes of portal hypertension yet. I did reach out to social work to see if there is anything we can do for this gentleman. He is at high risk for dying of his alcoholic liver disease because of continued severe alcohol abuse. We discussed the fact that this is his third admission in 3 months. He keeps on insisting that he can do this by himself. He has refused to go to rehab, refused to go to counseling, and keeps on insisting that he can do this alone. We are considering a DCR evaluation once he is done with his acute medical problems of the alcoholic hepatitis, and hypokalemia, and hyperammoniawhich need to be stabilized. Plan: Aim for a DCR evaluation this week if he is done with his acute medical problems. Aim for a normal K. I do not think we can get a normal bilirubin. That will take weeks. 7) Leukocytosis. There was no fever, no cough or congestion, no abdominal pain, no urgency, frequency, dysuria. The initial CT of the abdomen showed an enlarged liver with cirrhosis, gallbladder and biliary tree were within normal limits. No splenomegaly. No hydronephrosis. Thickening of the right colon with a small amount of ascites. But no true colitis was diagnosed then. Bladder appears normal. He does not have a UTI. Chest CT showed new thickening of the distal esophagus which could indicate esophageal injury. Bilateral pulmonary atelect asis versus pneumonia but no consolidation, pleural effusions. The pneumonia is described as a mild groundglass density within the bilateral lower lobes, could be simple atelectasis As such, in looking for a source of infection causing the leukocytosis, nothing was definitive. His CT abd/pelvis showed colitis of the ascending and transverse colon. He had daily diarrhea. I stopped his Lactulose, due to the amount of watery diarrhea. Has been on antibiotics for 3 days. Today is the first day with formed stool Plan: Cont on IV Cipro and IV Flagyl empirically Follow WBC daily 8) Depression/adjustment disorder. I do not know how much starting an SSRI can help him. We started him on Zoloft 25 mg a day with the last admission. When readmitted we increased the Zoloft to 50 mg a day. Plan: Monitor for signs and symptoms of depression or suicidal ideation. Response to medication is not expected for at least another month. Seek outpatient mental health provider Social work and I feel that we will be ordering a DCR evaluation when he is done with his acute medical problems. 9) Macrocytic anemia Free T4, free T3, TSH all normal. B12 level was normal in June 2022. Folate was normal in June and 2022. Most likely this is direct toxicity of alcohol on bone marrow. Plan: P.o. thiamine 100 mg daily. 10) Hyponatremia. Due to alcohol abuse, lack of p.o. intake. Dehydration. He received IV fluids for hydration. When his IV fluids were discontinued and he is on a low-salt diet due to ascites. No evidence of fluid overload yet. Plan: He is on Lasix now, watch BMP daily - Current Meds Current Meds: Current Medications Generic Name Dose Route Start Last Admin Trade Name Arsalan PRN Reason Stop Dose Admin Calcium Carbonate/Glycine 500 mg 10/09/22 04:48 10/11/22 17:25 Calcium Carbonate Chew 500 Mg Tablet PO 500 mg TID PRN Administration Abdominal Pain Ciprofloxacin 400 mg in 200 mls @ 200 mls/hr 10/10/22 08:00 10/12/22 15:23 Cipro 400 Mg/200 Ml IV Infused Q12H [facility] Infusion Metronidazole 500 mg in 100 mls @ 100 mls/hr 10/10/22 08:00 10/12/22 09:55 Flagyl 500 Mg/100 Ml IV Infused Q8H [facility] Infusion Ibuprofen 600 mg 10/06/22 14:31 10/12/22 03:20 Ibuprofen 600 Mg Tablet PO 600 mg Q6HR PRN Administration Pain 1 to 4 Magnesium Oxide 400 mg 10/09/22 12:00 10/12/22 08:50 Magnesium Oxide 400 Mg Tablet PO 400 mg DAILYWM [facility] Administration Metoprolol Succinate 50 mg 10/07/22 09:00 10/12/22 08:50 Metoprolol Succinate 50 Mg Tablet PO 50 mg DAILY [facility] Administration Ondansetron HCl 4 mg 10/06/22 14:31 10/09/22 16:44 Ondansetron Odt 4 Mg Tablet TL 4 mg Q6HR PRN Administration Nausea / Vomiting Ondansetron HCl 4 mg 10/06/22 14:31 10/10/22 12:49 Ondansetron 4 Mg/2 Ml Vial IVP 4 mg Q6HR PRN Administration Nausea / Vomiting Pantoprazole Sodium 40 mg 10/10/22 12:00 10/12/22 05:34 Pantoprazole 40 Mg Tablet PO 40 mg QDAC [facility] Administration Potassium Chloride 30 meq 10/11/22 17:00 10/12/22 08:51 Potassium Chloride 10 Meq Capsule PO 30 meq BIDWM [facility] Administration Multivit/Folic Acid/Iron 1 tab 10/09/22 08:00 10/12/22 08:49 Vitamin Tablet PO 1 tab DAILYWM [facility] Administration Saccharomyces Boulardii 250 mg 10/10/22 08:00 10/12/22 08:51 Saccharomyces Boulardii 250 Mg Capsule PO 250 mg BIDWM [facility] Administration Sertraline HCl 50 mg 10/07/22 09:00 10/12/22 08:50 Sertraline 50 Mg Tablet PO 50 mg DAILY [facility] Administration Simethicone 80 mg 10/09/22 17:00 10/12/22 12:50 Simethicone Chew 80 Mg Tablet PO 80 mg 0800,1200,1700,2100 [facility] Administration Sodium Chloride 10 ml 10/06/22 17:00 10/12/22 08:52 Sodium Chloride Flush 0.9% 10 Ml Syringe IVP 10 ml 0100,0900,1700 [facility] Administration Thiamine HCl 100 mg 10/07/22 09:00 10/12/22 08:49 Thiamine 100 Mg Tablet PO 100 mg DAILY [facility] Administration - Lab Result Fish Bone Diagrams: 10/12/22 08:05 10/12/22 08:05 - Additional Planning My Orders: My Active Orders 10/11/22 17:00 Potassium Chloride [Micro-K] 30 meq PO BIDWM 10/13/22 05:00 AMMONIA [CHEM] DAILYLAB BMP - BASIC METABOLIC PANEL [CHEM] DAILYLAB CBC - COMP BLD CT W/AUTO DIFF [HEME] DAILYLAB LIVER PANEL [CHEM] DAILYLAB MAGNESIUM [CHEM] DAILYLAB 10/14/22 05:00 BMP - BASIC METABOLIC PANEL [CHEM] DAILYLAB 10/15/22 05:00 BMP - BASIC METABOLIC PANEL [CHEM] DAILYLAB Subjective - Subjective Patient Reports: Feeling Better (He had a slightly formed BM, the first in about 4 days. He has not had nausea or acid since his home dose of PPI was resumed 3 days ago.) Objective Vital Signs: Vital Signs - 24 hr 10/11/22 10/12/22 10/12/22 16:12 00:18 08:42 Temperature 36.7 C 36.9 C 36.4 C L Heart Rate [ 89 91 85 Brachial] Respiratory 20 18 18 Rate Blood Pressure 106/67 113/72 153/76 H [Right Brachial artery] O2 Saturation 91 L 92 95 Oxygen O2 Source Room air I&O (Last 24 Hrs): Intake and Output Totals x24h 10/10/22 10/11/22 10/12/22 23:59 23:59 23:59 Intake Total 3035 3853.667 1430 Output Total 150 Balance 2885 3853.667 1430 General: Alert, Oriented x3 HEENT: Mucous membr. moist/pink, Other (Icteric) Neck: Supple, No JVD Neuro: Alert, Non Focal, Other (No nystagmus, no tremor) Cardiovascular: Regular rate Respiratory: No respiratory distress Abdomen: Other (Mildly distended, moderately tense, no guarding or rebound) Extremities: No clubbing, No edema, No tenderness/swelling - Results Results: Laboratory Results WBC 11.7 x10^3/uL (4.8-10.8) H 10/12/22 08:05 RBC 2.47 10^6/uL (4.70-6.10) L 10/12/22 08:05 Hgb 9.1 g/dL (14.0-18.0) L 10/12/22 08:05 Hct 27.2 % (42.0-52.0) L 10/12/22 08:05 MCV 110.1 fL (80.0-94.0) H 10/12/22 08:05 MCH 36.8 pg (27.0-31.0) H 10/12/22 08:05 MCHC 33.5 g/dL (32.0-36.0) 10/12/22 08:05 RDW 21.8 % (12.0-15.0) H 10/12/22 08:05 Plt Count 205 10^3/uL (130-450) 10/12/22 08:05 MPV 10.2 fL (7.4-11.4) 10/12/22 08:05 Neut # (Auto) 8.3 10^3/uL (1.5-6.6) H 10/12/22 08:05 Lymph # (Auto) 1.5 10^3/uL (1.5-3.5) 10/12/22 08:05 [place] # (Auto) 1.8 10^3/uL (0.0-1.0) H 10/12/22 08:05 Eos # (Auto) 0.1 10^3/uL (0.0-0.7) 10/12/22 08:05 Baso # (Auto) 0.0 10^3/uL (0.0-0.1) 10/12/22 08:05 Absolute Nucleated RBC 0.00 x10^3/uL 10/12/22 08:05 Total Counted 100 10/11/22 05:00 Band Neuts % (Manual) 3 % (0-10) 10/11/22 05:00 Abnorm Lymph % (Manual) 0 % 10/11/22 05:00 Nucleated RBC % 0.0 /100WBC 10/12/22 08:05 Neutrophils # (Manual) 7.8 10^3/uL (1.5-6.6) H 10/11/22 05:00 Lymphocytes # (Manual) 1.3 10^3/uL (1.5-3.5) L 10/11/22 05:00 Monocytes # (Manual) 1.7 10^3/uL (0.0-1.0) H 10/11/22 05:00 Eosinophils # (Manual) 0.0 10^3/uL (0-0.7) 10/11/22 05:00 Basophils # (Manual) 0.0 10^3/uL (0-0.1) 10/11/22 05:00 Differential Comment MANUAL DIFFERENTIAL 10/11/22 05:00 Manual Slide Review Indicated 10/12/22 08:05 WBC Morphology NORMAL APPEARANCE (NORMAL) 10/10/22 05:26 Platelet Estimate NORMAL (130-450,000) (NORMAL) 10/11/22 05:00 Platelet Morphology NORMAL APPEARANCE (NORMAL) 10/10/22 05:26 RBC Morph Micro Appear 4+ ANISOCYTOSIS (NORMAL) 2+ MACROCYTOSIS (NORMAL) 10/12/22 08:05 RBC Morph Micro Appear 4+ ANISOCYTOSIS (NORMAL) 2+ MACROCYTOSIS (NORMAL) 10/12/22 08:05 Sodium 134 mmol/L (135-145) L 10/12/22 08:05 Potassium 3.5 mmol/L (3.5-5.0) 10/12/22 08:05 Chloride 98 mmol/L (101-111) L 10/12/22 08:05 Carbon Dioxide 30 mmol/L (21-32) 10/12/22 08:05 Anion Gap 6.0 (6-13) 10/12/22 08:05 BUN < 5 mg/dL (6-20) L 10/12/22 08:05 Creatinine 0.4 mg/dL (0.6-1.2) L 10/12/22 08:05 Estimated GFR (MDRD) 251 (>89) 10/12/22 08:05 Glucose 97 mg/dL (70-100) 10/12/22 08:05 Calcium 7.9 mg/dL (8.5-10.3) L 10/12/22 08:05 Phosphorus 3.8 mg/dL (2.5-4.6) 10/11/22 05:00 Magnesium 1.6 mg/dL (1.7-2.8) L 10/12/22 08:05 Total Bilirubin 11.0 mg/dL (0.2-1.0) H 10/12/22 08:05 Direct Bilirubin 6.0 mg/dL (0.1-0.5) H 10/12/22 08:05 AST 83 IU/L (10-42) H 10/12/22 08:05 ALT 27 IU/L (10-60) 10/12/22 08:05 Alkaline Phosphatase 137 IU/L (42-121) H 10/12/22 08:05 Ammonia 96.3 umol/L (7-35) H* 10/12/22 08:05 Total Protein 6.0 g/dL (6.7-8.2) L 10/12/22 08:05 Albumin 2.0 g/dL (3.2-5.5) L 10/12/22 08:05 Globulin 4.0 g/dL (2.1-4.2) 10/12/22 08:05 Albumin/Globulin Ratio 0.5 (1.0-2.2) L 10/11/22 05:00 Stl C. diff Tox B Gene NEGATIVE (NEGATIVE) 10/11/22 16:35 Ethyl Alcohol < 5.0 mg/dL 10/06/22 14:41 - Procedures Procedures: Procedures CLOSURE SKIN & SUBCUTANEOUS NEC (11/17/12)
[2022-10-12] MEDS: NICOTINE 14 MG PATCH TOP SCH (19:25)
[2022-10-13] MEDS: PANTOPRAZOLE 40 MG TABLET PO SCH (05:07)
[2022-10-13] MEDS: IBUPROFEN 600 MG TABLET PO PRN ×3 (05:53→18:05)
[2022-10-13 08:15] LABS: BASOPHILS # (AUTO) 0.1 10^3/uL (0.0-0.1); BASOPHILS % (AUTO) 0.5 %; EOSINOPHILS # (AUTO) 0.1 10^3/uL (0.0-0.7); EOSINOPHILS % (AUTO) 0.5 %; HCT - HEMATOCRIT 26.6 % (42.0-52.0); HGB - HEMOGLOBIN 8.8 g/dL (14.0-18.0); LYMPHOCYTES # (AUTO) 1.5 10^3/uL (1.5-3.5); LYMPHOCYTES % (AUTO) 12.7 %; MEAN CORPUSCULAR HEMOGLOBIN 36.8 pg (27.0-31.0); MEAN CORPUSCULAR HGB CONC 33.1 g/dL (32.0-36.0); MEAN CORPUSCULAR VOLUME 111.3 fL (80.0-94.0); MEAN PLATELET VOLUME 10.5 fL (7.4-11.4); MONOCYTES # (AUTO) 1.9 10^3/uL (0.0-1.0); MONOCYTES % (AUTO) 15.4 %; NEUTROPHILS # (AUTO) 8.6 10^3/uL (1.5-6.6); NEUTROPHILS % (AUTO) 70.5 %; PLT - PLATELET COUNT 189 10^3/uL (130-450); RED BLOOD COUNT 2.39 10^6/uL (4.70-6.10); RED CELL DISTRIBUTION WIDTH 21.2 % (12.0-15.0); WHITE BLOOD COUNT 12.1 x10^3/uL (4.8-10.8)
[2022-10-13 08:30] LABS: ALKALINE PHOSPHATASE 134 IU/L (42-121); ALT ALANINE AMINOTRANSFERASE 24 IU/L (10-60); AST ASPARTATE AMINOTRANSFERASE 79 IU/L (10-42); BILIRUBIN,DIRECT 5.6 mg/dL (0.1-0.5); BILIRUBIN,TOTAL 9.8 mg/dL (0.2-1.0); BUN - BLOOD UREA NITROGEN < 5 mg/dL (6-20); CALCIUM 7.6 mg/dL (8.5-10.3); CARBON DIOXIDE - CO2 27 mmol/L (21-32); CHLORIDE 99 mmol/L (101-111); CREATININE 0.5 mg/dL (0.6-1.2); GFR - MDRD 194 (>89); GLUCOSE 96 mg/dL (70-100); MAGNESIUM 1.7 mg/dL (1.7-2.8); POTASSIUM 3.6 mmol/L (3.5-5.0); SODIUM 131 mmol/L (135-145); TOTAL PROTEIN 5.8 g/dL (6.7-8.2)
[2022-10-13 08:33] LABS: SLIDE REVIEW? Indicated
[2022-10-13] MEDS: THIAMINE 100 MG TABLET PO SCH (08:50)
[2022-10-13] MEDS: MAGNESIUM OXIDE 400 MG TABLET PO SCH (08:50)
[2022-10-13] MEDS: PRENATAL VITAMIN TABLET PO SCH (08:50)
[2022-10-13] MEDS: METOPROLOL SUCCINATE 50 MG TABLET PO SCH (08:50)
[2022-10-13] MEDS: metroNIDAZOLE 500 MG/100 ML 500 MG/100 ML BAG IV SCH ×2 (08:50→15:35)
[2022-10-13] MEDS: POTASSIUM CHLORIDE 10 MEQ CAPSULE PO SCH ×2 (08:50→15:39)
[2022-10-13] MEDS: SIMETHICONE CHEW 80 MG TABLET PO SCH ×4 (08:51→20:02)
[2022-10-13] MEDS: NICOTINE 14 MG PATCH TOP SCH (08:51)
[2022-10-13] MEDS: SACCHAROMYCES BOULARDII 250 MG CAPSULE PO SCH ×2 (08:51→15:39)
[2022-10-13] MEDS: SERTRALINE 50 MG TABLET PO SCH (08:56)
[2022-10-13] MEDS: SODIUM CHLORIDE FLUSH 0.9% 10 ML SYRINGE IVP SCH ×2 (08:56→15:35)
[2022-10-13] MEDS: CIPROFLOXACIN 400 MG/200 ML 400 MG/200 ML BAG IV SCH ×2 (09:56→20:02)
--- NOTE | 2022-10-13 11:33 | PROVIDER PROGRESS NOTE ---
Assessment/Plan - Problem List (1) Colitis Assessment/Plan: His CT abd/pelvis done 10/09 showed colitis of the ascending and transverse colon. There was also slightly more ascites than on last CT. I changed his diet from Reg diet to minced and moist, because of nausea on 10/09. I also have now added restriction of no red meat and no milk products for easier digestion and less gas. He has had a hyper tympanic abdomen exam for the last 3 days. I had started Simethicone prn and will now make it scheduled Simethicone before meals. He had daily diarrhea. I stopped his Lactulose, due to the amount of watery diarrhea. He has been on antibiotics for 3 days. Yesterday was the first day with formed stool Plan: Cont low fiber and no red meat or milk products diet Cont IV Cipro and IV Flagyl empirically. I will switch him to oral Cipro and Flagyl tomorrow Cont probiotics (2) Hypokalemia He was admitted October 02 through October 06. Left [facility] on the . The admission was for syncope in the context of acute intoxication. When he was evaluated in the emergency room he was most likely intoxicated, fell. He did not have a code. But he was identified as dehydrated, alcoholic hepatitis, hepatic encephalopathy, a MELD score of 21. He did go through withdrawal but symptoms were manageable. He had minimal tachycardia and no tremulousness, seizures or delirium. When he left [facility], my main focus of treatment consisted of treating his electrolyte derangement of low calcium, magnesium, phosphorus and potassium. That continues to be the main reason we readmitted him yesterday afternoon. My suspicion is all of this was from the previous nausea and vomiting and the ongoing diarrhea. He is losing electrolytes faster than we can replace. He continued to have diarrhea but the nausea and vomiting resolved. Plan: K is 3.6 today (all labs were reviewed). Cont oral potassium 20 mEq twice daily with meals Give K Riders as needed for very ow serum K Follow BMP daily 4) Hypomagnesemia Mg is also intermittently low. 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 Then we changed his meds to p.o. on October 04. He progressed from n.p.o. to clear liquids and then a regular diet by the . MELD score was 21. AST has improved daily. ALT has always been normal. Unfortunately bilirubin continues to rise. The last Hospitalist explained at length that this is not a good prognostic joe cator. With time, if he stops drinking, his liver hopefully can slowly heal. He needs to follow-up with Hepatology in the outpatient setting. He needs to stop drinking alcohol. His mom was very upset that he was discharged AMA. She kept on stating that "how can he be discharged when he is still so sick". I explained to her that it was not my idea to discharge him. We felt that he should sta and the last Hospitalist educated her on individual rights for patients. Patients have the right to make bad decisions, and we cannot detain them against their will to rectify their bad decisions. As long as he is not an imminent threat to himself or to someone else, we really cannot detain someone. He was adamant that he wanted to leave AMA and called his mom to come pick him up. We are glad that she was able to convince him to come back. He had been on Librium 5 mg p.o. twice daily, which was tapered down and stopped 10/12 yesterday afternoon. CIWA protocol was also stopped. I had him on 2 days of IV Lasix because of the increased ascites seen on the last CT scan. Yesterday 10/12 that was changed to p.o. Lasix Plan: Continue low-salt diet at 2 g restriction Continue p.o. thiamine and folate. Continue to monitor his LFTs intermittently I suspect he may need Lasix intermittently, not daily because it is only mild ascites. I will empirically order Lasix to be given every Mon, Wed & Fri. 6) Alcoholic cirrhosis with thrombocytopenia On examination he has minimal ascites but no anasarca. Belly is distended. Ammonia level was high but he does not appear encephalopathic. Lab work shows an elevated ammonia level. Macrocytosis. Thrombocytopenia. (CT of the abdomen does not show hepatosplenomegaly). In using a calculator for model for end-stage liver disease score in adults, the last hospitalist used a creatinine of 1.0. A bilirubin of 12.8. An INR of 1.6. His MELD score is 21. Lactulose was started October 03 mainly because of the high ammonia level not because he was encephalopathic. He had abdomen pelvis CT in June 2022 and October 02, 2022. He has hepatomegaly and a marked fatty liver. There is mild ascites. His biliary system is within normal limits. He does not have splenomegaly yet. There are no anatomic changes of portal hypertension yet. I did reach out to social work to see if there is anything we can do for this gentleman. He is at high risk for dying of his alcoholic liver disease because of continued severe alcohol abuse. We discussed the fact that this is his third admission in 3 months. He keeps on insisting that he can do this by himself. He has refused to go to rehab, refused to go to counseling, and keeps on insisting that he can do this alone. We are considering a DCR evaluation once he is done with his acute medical problems of the alcoholic hepatitis, and hypokalemia, and hyperammonia and acute colitis which need to be stabilized. Plan: Aim for a DCR evaluation this week if he is done with his acute medical problems. Aim for a normal K. I do not think we can get a normal bilirubin. That will take weeks. 7) Leukocytosis. There was no fever, no cough or congestion, no abdominal pain, no urgency, frequency, dysuria. The initial CT of the abdomen showed an enlarged liver with cirrhosis, gallbladder and biliary tree were within normal limits, no splenomeg isela, no hydronephrosis, bladder appeared normal. He did not have a UTI. Thickening of the right colon was seen with a small amount of ascites. But no true colitis was diagnosed then. Chest CT showed new thickening of the distal esophagus which could indicate esophageal injury. Bilateral pulmonary atelectasis versus pneumonia but no consolidation, pleural effusions. The pneumonia is described as a mild groundglass density within the bilateral lower lobes, could be simple atelectasis As such, in looking for a source of infection causing the leukocytosis, nothing was definitive. Then on 10/09, he felt worse, abd was more distended and a rfepeat CT abd/pelvis showed colitis of the ascending and transverse colon. He had daily diarrhea then and I stopped his Lactulose, due to the amount of watery diarrhea. He has been on iv Cipro and iv Flagyl for 3 days. 10/12 was the first day he reported some formed stool. From the day that I was concerned about colitis, 10/09, WBC went from 11>> 14>> 1 0>> 11>> 12 today Plan: Cont on IV Cipro and IV Flagyl empirically Follow WBC daily 8) Depression/adjustment disorder. I do not know how much starting an SSRI can help him. We started him on Zoloft 25 mg a day with the last admission. When readmitted we increased the Zoloft to 50 mg a day. Plan: Monitor for signs and symptoms of depression or suicidal ideation. Response to medication is not expected for at least a month. Seek outpatient mental health provider Social work and I feel that we will be ordering a DCR evaluation when he is done with his acute medical problems. 9) Macrocytic anemia Free T4, free T3, TSH all normal. B12 level was normal in June 2022. Folate was normal in June and 2022. Most likely this is direct toxicity of alcohol on bone marrow. Plan: P.o. thiamine 100 mg daily. 10) Hyponatremia. Due to alcohol abuse, lack of p.o. intake, dehydration. He received IV fluids for hydration. Then his IV fluids were discontinued, and he is on a low-salt diet due to ascites. No evidence of fluid overload . Plan: He is on Lasix now, watch serum sodium daily - Current Meds Current Meds: Current Medications Generic Name Dose Route Start Last Admin Trade Name Freq PRN Reason Stop Dose Admin Calcium Carbonate/Glycine 500 mg 10/09/22 04:48 10/11/22 17:25 Calcium Carbonate Chew 500 Mg Tablet PO 500 mg TID PRN Administration Abdominal Pain Ciprofloxacin 400 mg in 200 mls @ 200 mls/hr 10/10/22 08:00 10/13/22 09:56 Cipro 400 Mg/200 Ml IV 200 mls/hr Q12H [facility] Administration Metronidazole 500 mg in 100 mls @ 100 mls/hr 10/10/22 08:00 10/13/22 08:50 Flagyl 500 Mg/100 Ml IV 100 mls/hr Q8H [facility] Administration Ibuprofen 600 mg 10/06/22 14:31 10/13/22 05:53 Ibuprofen 600 Mg Tablet PO 600 mg Q6HR PRN Administration Pain 1 to 4 Magnesium Oxide 400 mg 10/09/22 12:00 10/13/22 08:50 Magnesium Oxide 400 Mg Tablet PO 400 mg DAILYWM [facility] Administration Metoprolol Succinate 50 mg 10/07/22 09:00 10/13/22 08:50 Metoprolol Succinate 50 Mg Tablet PO 50 mg DAILY [facility] Administration Nicotine 1 patch 10/12/22 19:03 10/13/22 08:51 Nicotine 14 Mg Patch TOP 1 patch DAILY [facility] Administration Ondansetron HCl 4 mg 10/06/22 14:31 10/09/22 16:44 Ondansetron Odt 4 Mg Tablet TL 4 mg Q6HR PRN Administration Nausea / Vomiting Ondansetron HCl 4 mg 10/06/22 14:31 10/10/22 12:49 Ondansetron 4 Mg/2 Ml Vial IVP 4 mg Q6HR PRN Administration Nausea / Vomiting Pantoprazole Sodium 40 mg 10/10/22 12:00 10/13/22 05:07 Pantoprazole 40 Mg Tablet PO 40 mg QDAC [facility] Administration Potassium Chloride 30 meq 10/11/22 17:00 10/13/22 08:50 Potassium Chloride 10 Meq Capsule PO 30 meq BIDWM [facility] Administration Multivit/Folic Acid/Iron 1 tab 10/09/22 08:00 10/13/22 08:50 Vitamin Tablet PO 1 tab DAILYWM [facility] Administration Saccharomyces Boulardii 250 mg 10/10/22 08:00 10/13/22 08:51 Saccharomyces Boulardii 250 Mg Capsule PO 250 mg BIDWM [facility] Administration Sertraline HCl 50 mg 10/07/22 09:00 10/13/22 08:56 Sertraline 50 Mg Tablet PO 50 mg DAILY [facility] Administration Simethicone 80 mg 10/09/22 17:00 10/13/22 08:51 Simethicone Chew 80 Mg Tablet PO 80 mg 0800,1200,1700,2100 MILTON Administration Sodium Chloride 10 ml 10/06/22 17:00 10/13/22 08:56 Sodium Chloride Flush 0.9% 10 Ml Syringe IVP 10 ml 0100,0900,1700 MILTON Administration Thiamine HCl 100 mg 10/07/22 09:00 10/13/22 08:50 Thiamine 100 Mg Tablet PO 100 mg DAILY [facility] Administration - Lab Result Fish Bone Diagrams: 10/13/22 08:07 10/13/22 08:07 - Additional Planning My Orders: My Active Orders 10/12/22 16:25 Miscellaenous Nursing Order [RC] QSHIFT 10/12/22 19:03 Nicotine 14 mg Patch [Nicoderm] 1 patch TOP DAILY 10/14/22 05:00 BMP - BASIC METABOLIC PANEL [CHEM] DAILYLAB 10/15/22 05:00 BMP - BASIC METABOLIC PANEL [CHEM] DAILYLAB Subjective - Subjective Patient Reports: Feeling Better (No abdominal pain or nausea. Able to eat his whole meal tray. He requested potato chips which I allowed him 1 bag daily.) Objective Vital Signs: Vital Signs - 24 hr 10/12/22 10/12/22 10/12/22 15:47 21:11 23:39 Temperature 36.6 C 36.4 C L 36.4 C L Heart Rate [ 87 88 86 Brachial] Respiratory 18 17 16 Rate Blood Pressure 109/70 109/69 113/67 [Right Brachial artery] O2 Saturation 92 94 93 10/13/22 08:41 Temperature 36.4 C L Heart Rate [ 91 Brachial] Respiratory 17 Rate Blood Pressure 110/70 [Right Brachial artery] O2 Saturation 92 Oxygen O2 Source Room air I&O (Last 24 Hrs): Intake and Output Totals x24h 10/11/22 10/12/22 10/13/22 23:59 23:59 23:59 Intake Total 3853.667 2640 940 Balance 3853.667 2640 940 General: Alert, Oriented x3 HEENT: Mucous membr. moist/pink, Other (Icteric) Neck: Supple, No JVD Neuro: Alert, Non Focal, Other (No tremor, no nystagmus) Cardiovascular: Regular rate Respiratory: No respiratory distress Abdomen: Other (Moderately distended, nontender, hypertympanic) Extremities: No clubbing, No edema, No tenderness/swelling - Results Results: Laboratory Results WBC 12.1 x10^3/uL (4.8-10.8) H 10/13/22 08:07 RBC 2.39 10^6/uL (4.70-6.10) L 10/13/22 08:07 Hgb 8.8 g/dL (14.0-18.0) L 10/13/22 08:07 Hct 26.6 % (42.0-52.0) L 10/13/22 08:07 MCV 111.3 fL (80.0-94.0) H 10/13/22 08:07 MCH 36.8 pg (27.0-31.0) H 10/13/22 08:07 MCHC 33.1 g/dL (32.0-36.0) 10/13/22 08:07 RDW 21.2 % (12.0-15.0) H 10/13/22 08:07 Plt Count 189 10^3/uL (130-450) 10/13/22 08:07 MPV 10.5 fL (7.4-11.4) 10/13/22 08:07 Neut # (Auto) 8.6 10^3/uL (1.5-6.6) H 10/13/22 08:07 Lymph # (Auto) 1.5 10^3/uL (1.5-3.5) 10/13/22 08:07 [place] # (Auto) 1.9 10^3/uL (0.0-1.0) H 10/13/22 08:07 Eos # (Auto) 0.1 10^3/uL (0.0-0.7) 10/13/22 08:07 Baso # (Auto) 0.1 10^3/uL (0.0-0.1) 10/13/22 08:07 Absolute Nucleated RBC 0.00 x10^3/uL 10/13/22 08:07 Total Counted 100 10/11/22 05:00 Band Neuts % (Manual) 3 % (0-10) 10/11/22 05:00 Abnorm Lymph % (Manual) 0 % 10/11/22 05:00 Nucleated RBC % 0.0 /100WBC 10/13/22 08:07 Neutrophils # (Manual) 7.8 10^3/uL (1.5-6.6) H 10/11/22 05:00 Lymphocytes # (Manual) 1.3 10^3/uL (1.5-3.5) L 10/11/22 05:00 Monocytes # (Manual) 1.7 10^3/uL (0.0-1.0) H 10/11/22 05:00 Eosinophils # (Manual) 0.0 10^3/uL (0-0.7) 10/11/22 05:00 Basophils # (Manual) 0.0 10^3/uL (0-0.1) 10/11/22 05:00 Differential Comment MANUAL DIFFERENTIAL 10/11/22 05:00 Manual Slide Review Indicated 10/13/22 08:07 WBC Morphology NORMAL APPEARANCE (NORMAL) 10/10/22 05:26 Platelet Estimate NORMAL (130-450,000) (NORMAL) 10/11/22 05:00 Platelet Morphology NORMAL APPEARANCE (NORMAL) 10/10/22 05:26 RBC Morph Micro Appear 4+ ANISOCYTOSIS (NORMAL) 2+ MACROCYTOSIS (NORMAL) 10/13/22 08:07 RBC Morph Micro Appear 4+ ANISOCYTOSIS (NORMAL) 2+ MACROCYTOSIS (NORMAL) 10/13/22 08:07 Sodium 131 mmol/L (135-145) L 10/13/22 08:07 Potassium 3.6 mmol/L (3.5-5.0) 10/13/22 08:07 Chloride 99 mmol/L (101-111) L 10/13/22 08:07 Carbon Dioxide 27 mmol/L (21-32) 10/13/22 08:07 Anion Gap 5.0 (6-13) L 10/13/22 08:07 BUN < 5 mg/dL (6-20) L 10/13/22 08:07 Creatinine 0.5 mg/dL (0.6-1.2) L 10/13/22 08:07 Estimated GFR (MDRD) 194 (>89) 10/13/22 08:07 Glucose 96 mg/dL (70-100) 10/13/22 08:07 Calcium 7.6 mg/dL (8.5-10.3) L 10/13/22 08:07 Phosphorus 3.8 mg/dL (2.5-4.6) 10/11/22 05:00 Magnesium 1.7 mg/dL (1.7-2.8) 10/13/22 08:07 Total Bilirubin 9.8 mg/dL (0.2-1.0) H 10/13/22 08:07 Direct Bilirubin 5.6 mg/dL (0.1-0.5) H 10/13/22 08:07 AST 79 IU/L (10-42) H 10/13/22 08:07 ALT 24 IU/L (10-60) 10/13/22 08:07 Alkaline Phosphatase 134 IU/L (42-121) H 10/13/22 08:07 Ammonia 80.5 umol/L (7-35) H* 10/13/22 08:07 Total Protein 5.8 g/dL (6.7-8.2) L 10/13/22 08:07 Albumin 2.0 g/dL (3.2-5.5) L 10/13/22 08:07 Globulin 3.8 g/dL (2.1-4.2) 10/13/22 08:07 Albumin/Globulin Ratio 0.5 (1.0-2.2) L 10/11/22 05:00 Stl C. diff Tox B Gene NEGATIVE (NEGATIVE) 10/11/22 16:35 Ethyl Alcohol < 5.0 mg/dL 10/06/22 14:41 - Procedures Procedures: Procedures CLOSURE SKIN & SUBCUTANEOUS NEC (11/17/12)
[2022-10-14] MEDS: metroNIDAZOLE 500 MG/100 ML 500 MG/100 ML BAG IV SCH (00:10)
[2022-10-14] MEDS: IBUPROFEN 600 MG TABLET PO PRN ×4 (00:16→22:31)
[2022-10-14] MEDS: SODIUM CHLORIDE FLUSH 0.9% 10 ML SYRINGE IVP SCH ×3 (01:17→17:09)
[2022-10-14 05:53] LABS: BUN - BLOOD UREA NITROGEN < 5 mg/dL (6-20); CALCIUM 7.9 mg/dL (8.5-10.3); CARBON DIOXIDE - CO2 26 mmol/L (21-32); CHLORIDE 101 mmol/L (101-111); CREATININE 0.6 mg/dL (0.6-1.2); GFR - MDRD 157 (>89); GLUCOSE 106 mg/dL (70-100); POTASSIUM 3.8 mmol/L (3.5-5.0); SODIUM 133 mmol/L (135-145)
[2022-10-14] MEDS: PANTOPRAZOLE 40 MG TABLET PO SCH ×2 (06:30→08:38)
--- NOTE | 2022-10-14 08:23 | PROVIDER PROGRESS NOTE ---
Assessment/Plan - Problem List (1) Colitis Assessment/Plan: When his abdominal pain, nausea and poor appetite returned, he had a CT abd/pelvis done 10/09, which showed definite colitis of the ascending and tr ansverse colon. There was also slightly more ascites than on last CT. I then changed his diet from Reg diet to low fiber, and no red meat and no milk products, for easier digestion and less gas. He has had a hyper tympanic abdomen exam for the last 4 days. I therefore had started Simethicone prn and then made it scheduled Simethicone before meals. He still had daily diarrhea. I stopped his Lactulose several days ago, due to the amount of watery diarrhea. On 10/12 was the first day with some amount of formed stool He has been on iv Cipro and Flagyl antibiotics for 4 days. Plan: Cont low fiber and no red meat or milk products diet Change IV Cipro and IV Flagyl to oral Cipro and Flagyl today. He may be stable for discharge tomorrow. Cont probiotics Follow WBC (2) Hypokalemia He was admitted October 02 through October 06 for syncope in the context of acute intoxication. He was identified as dehydrated, alcoholic hepatitis, hepatic encephalopathy, a MELD score of 21. He did go through withdrawal then, but symptoms were minimal tachycardia and no tremulousness, seizures or delirium. Before he left [facility] on 10/06, the main focus of treatment consisted of treating his electrolyte derangement of low calcium, low magnesium, low phosphorus and very low potassium. Then he returned later that day 10/06. I suspect his low electrolytes are from the previous N/V and the ongoing diarrhea. He was losing electrolytes faster than we could replace. He has continued to have diarrhea, but N/V resolved. We have needed to give him K riders and increased his scheduled oral potassium supplement His K has been in a good range for 3 days (all labs were reviewed). Plan: Cont oral potassium 20 mEq twice daily with meals Follow BMP daily 3) Hypomagnesemia Mg is also intermittently low. 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 AST has improved daily. ALT has always been normal. Unfortunately bilirubin and Ammonia are elevated. The Hospitalist explained at length that this is not a good prognostic indicator. With time, if he stops drinking, his liver hopefully can slowly heal. He needs to follow-up with Hepatology in the outpatient setting. He needs to stop drinking alcohol. He was on Librium 5 mg p.o. twice daily, which was tapered down and stopped 10/12 afternoon. CIWA protocol was also stopped. I had him on 2 days of IV Lasix because of the increased ascites seen on the most recent CT scan done 10/09. On 10/12 that was changed to daily p.o. Lasix Plan: Continue low-salt diet at 2 g restriction Continue p.o. thiamine and folate. Continue to monitor his LFTs intermittently Since his ascites is small by CT scan, I will stop Lasix and start po Spirono lactone on Fri, Fri, Fri, Sundays. 5) Alcoholic cirrhosis On examination he has minimal ascites and no anasarca, but his abdomen is distended. Ammonia level has been high but he does not appear encephalopathic. CT of the abdomen does not show hepatosplenomegaly but has steatosis. His MELD score was 21. Lactulose was started October 03 mainly because of the high ammonia level not because he was encephalopathic. I stopped Lactulose when his diarrhea was unrelenting. He had abdomen pelvis CT in June 2022 and October 02, 2022. He had hepatomegaly and a marked fatty liver. There was mild ascites. His biliary system is within normal limits. He does not have splenomegaly yet. There are no anatomic changes of portal hypertension yet. He is at high risk for dying of his alcoholic liver disease because of continued severe alcohol abuse. The last Hospitalist discussed with Social Work, the fact that this is his third admission in 3 months. He keeps on insisting that he can stop alcohol abuse by himself. He has previously refused to go to rehab, refused to go to counseling. We were considering a DCR evaluation once he is done with his acute medical problems of the colitis, and electrolyte depletions, which need to be stabilized. Today 10/14 I asked him how he plans to deal with alcohol abuse if he is discharged tomorrow. He says he is planning to go to [place] for the 6-month program and has the funds for this. Alternatively he would go to the [facility] 3- month program. He says his mother and cousin are very much backing him up to do this. Plan: A DCR evaluation may no longer be needed, since he has a plan and a backup plan for dealing with alcohol abuse. 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 7) Leukocytosis. There was no fever, no cough or congestion, no abdominal pain, no urgency, frequency, dysuria at admission. The initial CT of the abdomen showed an enlarged liver with cirrhosis, gallbladder and biliary tree were within normal limits, no splenomegaly, no hydronephrosis, bladder appeared normal. He did not have a UTI. Thickening of t he right colon was seen with a small amount of ascites. But no true colitis was diagnosed then. Chest CT showed new thickening of the distal esophagus which could indicate esophageal injury. Bilateral pulmonary atelectasis versus pneumonia but no consolidation, pleural effusions, with groundglass density of the bilateral lower lobes, which could be simple atelectasis As such, in looking for a source of infection causing the leukocytosis, nothing was definitive. Then on 10/09, he felt worse, abd was more distended and a repeat CT abd/pelvis showed colitis of the ascending and transverse colon. He had daily explosive, watery diarrhea then, and I stopped his Lactulose, due to the amount of watery diarrhea. He has been on iv Cipro and iv Flagyl for 4 days. 10/12 was the first day he reported some formed stool. From the day that I was concerned about colitis, 10/09, WBC went from 11>> 14>> 1 0>> 11>> 12 yesterday 10/13 Plan: Change IV Cipro and IV Flagyl to oral Cipro and Flagyl today Follow WBC daily 8) Depression/adjustment disorder. We started him on Zoloft 25 mg a day with the last admission. When readmitted we increased the Zoloft to 50 mg a day. He has noticed that over the past few days his reactions are to everything or not is "dramatic". I told him that is usually the feeling when he is on antidepressant and that it is probably working Plan: Consider an outpatient mental health provider A DCR evaluation may no longer be needed, since he seems less "down" and appears motivated 9) Macrocytic anemia Free T4, free T3, TSH all normal. B12 level was normal in June 2022. Folate was normal in June and 2022. Most likely this is direct toxicity of alcohol on bone marrow. Plan: Continue P.o. thiamine 100 mg daily. 10) Hyponatremia. Due to alcohol abuse, lack of p.o. intake, dehydration. He received IV fluids for hydration. Then his IV fluids were discontinued, and he is on a low-salt diet due to ascites. No evidence of fluid overload . Plan: He was on Lasix for several days Watch serum sodium daily - Current Meds Current Meds: Current Medications Generic Name Dose Route Start Last Admin Trade Name Freq PRN Reason Stop Dose Admin Calcium Carbonate/Glycine 500 mg 10/09/22 04:48 10/11/22 17:25 Calcium Carbonate Chew 500 Mg Tablet PO 500 mg TID PRN Administration Abdominal Pain Ibuprofen 600 mg 10/06/22 14:31 10/14/22 00:16 Ibuprofen 600 Mg Tablet PO 600 mg Q6HR PRN Administration Pain 1 to 4 Magnesium Oxide 400 mg 10/09/22 12:00 10/13/22 08:50 Magnesium Oxide 400 Mg Tablet PO 400 mg DAILYWM MILTON Administration Metoprolol Succinate 50 mg 10/07/22 09:00 10/13/22 08:50 Metoprolol Succinate 50 Mg Tablet PO 50 mg DAILY MILTON Administration Nicotine 1 patch 10/12/22 19:03 10/13/22 08:51 Nicotine 14 Mg Patch TOP 1 patch DAILY MILTON Administration Ondansetron HCl 4 mg 10/06/22 14:31 10/09/22 16:44 Ondansetron Odt 4 Mg Tablet TL 4 mg Q6HR PRN Administration Nausea / Vomiting Ondansetron HCl 4 mg 10/06/22 14:31 10/10/22 12:49 Ondansetron 4 Mg/2 Ml Vial IVP 4 mg Q6HR PRN Administration Nausea / Vomiting Pantoprazole Sodium 40 mg 10/10/22 12:00 10/14/22 06:30 Pantoprazole 40 Mg Tablet PO 40 mg QDAC MILTON Administration Potassium Chloride 30 meq 10/11/22 17:00 10/13/22 15:39 Potassium Chloride 10 Meq Capsule PO 30 meq BIDWM MILTON Administration Multivit/Folic Acid/Iron 1 tab 10/09/22 08:00 10/13/22 08:50 Vitamin Tablet PO 1 tab DAILYWM MILTON Administration Saccharomyces Boulardii 250 mg 10/10/22 08:00 10/13/22 15:39 Saccharomyces Boulardii 250 Mg Capsule PO 250 mg BIDWM MILTON Administration Sertraline HCl 50 mg 10/07/22 09:00 10/13/22 08:56 Sertraline 50 Mg Tablet PO 50 mg DAILY MILTON Administration Simethicone 80 mg 10/09/22 17:00 10/13/22 20:02 Simethicone Chew 80 Mg Tablet PO 80 mg 0800,1200,1700,2100 MILTON Administration Sodium Chloride 10 ml 10/06/22 17:00 10/14/22 01:17 Sodium Chloride Flush 0.9% 10 Ml Syringe IVP Not Given 0100,0900,1700 MILTON Thiamine HCl 100 mg 10/07/22 09:00 10/13/22 08:50 Thiamine 100 Mg Tablet PO 100 mg DAILY MILTON Administration - Lab Result Fish Bone Diagrams: 10/13/22 08:07 10/14/22 05:07 - Additional Planning My Orders: My Active Orders 10/14/22 05:00 MAGNESIUM [CHEM] Routine 10/14/22 08:00 metroNIDAZOLE [Flagyl] 500 mg PO TIDWM 10/14/22 09:00 Ciprofloxacin [Cipro] 250 mg PO BID 10/15/22 05:00 AMMONIA [CHEM] DAILYLAB BMP - BASIC METABOLIC PANEL [CHEM] DAILYLAB BMP - BASIC METABOLIC PANEL [CHEM] DAILYLAB CBC - COMP BLD CT W/AUTO DIFF [HEME] DAILYLAB MAGNESIUM [CHEM] DAILYLAB 10/16/22 05:00 AMMONIA [CHEM] DAILYLAB Subjective - Subjective Patient Reports: Feeling Better, No Complaints Objective Vital Signs: Vital Signs - 24 hr 10/13/22 10/13/22 10/13/22 08:41 15:00 15:34 Temperature 36.4 C L 36.5 C 36.4 C L Heart Rate [ 91 92 86 Brachial] Respiratory 17 17 16 Rate Blood Pressure 110/70 114/71 113/72 [Right Brachial artery] O2 Saturation 92 93 95 10/14/22 10/14/22 01:22 07:45 Temperature 36.7 C 36.5 C Heart Rate [ 87 89 Brachial] Respiratory 17 16 Rate Blood Pressure 109/70 102/65 [Right Brachial artery] O2 Saturation 94 94 Oxygen O2 Source Room air I&O (Last 24 Hrs): Intake and Output Totals x24h 10/12/22 10/13/22 10/14/22 23:59 23:59 23:59 Intake Total 2640 3700 836 Balance 2640 3700 836 General: Alert, Oriented x3 HEENT: Mucous membr. moist/pink, Other (Icteric) Neck: Supple Neuro: Alert, Non Focal, Other (No tremor, no nystagmus) Cardiovascular: Regular rate, No murmurs Respiratory: No respiratory distress, Breath sounds nml Abdomen: Other (Moderately distended, hypertympanic, distant bowel sounds, no guarding or rebound, no tenderness) Extremities: No clubbing, No edema, No tenderness/swelling - Results Results: Laboratory Results WBC 12.1 x10^3/uL (4.8-10.8) H 10/13/22 08:07 RBC 2.39 10^6/uL (4.70-6.10) L 10/13/22 08:07 Hgb 8.8 g/dL (14.0-18.0) L 10/13/22 08:07 Hct 26.6 % (42.0-52.0) L 10/13/22 08:07 MCV 111.3 fL (80.0-94.0) H 10/13/22 08:07 MCH 36.8 pg (27.0-31.0) H 10/13/22 08:07 MCHC 33.1 g/dL (32.0-36.0) 10/13/22 08:07 RDW 21.2 % (12.0-15.0) H 10/13/22 08:07 Plt Count 189 10^3/uL (130-450) 10/13/22 08:07 MPV 10.5 fL (7.4-11.4) 10/13/22 08:07 Neut # (Auto) 8.6 10^3/uL (1.5-6.6) H 10/13/22 08:07 Lymph # (Auto) 1.5 10^3/uL (1.5-3.5) 10/13/22 08:07 Wythe # (Auto) 1.9 10^3/uL (0.0-1.0) H 10/13/22 08:07 Eos # (Auto) 0.1 10^3/uL (0.0-0.7) 10/13/22 08:07 Baso # (Auto) 0.1 10^3/uL (0.0-0.1) 10/13/22 08:07 Absolute Nucleated RBC 0.00 x10^3/uL 10/13/22 08:07 Total Counted 100 10/11/22 05:00 Band Neuts % (Manual) 3 % (0-10) 10/11/22 05:00 Abnorm Lymph % (Manual) 0 % 10/11/22 05:00 Nucleated RBC % 0.0 /100WBC 10/13/22 08:07 Neutrophils # (Manual) 7.8 10^3/uL (1.5-6.6) H 10/11/22 05:00 Lymphocytes # (Manual) 1.3 10^3/uL (1.5-3.5) L 10/11/22 05:00 Monocytes # (Manual) 1.7 10^3/uL (0.0-1.0) H 10/11/22 05:00 Eosinophils # (Manual) 0.0 10^3/uL (0-0.7) 10/11/22 05:00 Basophils # (Manual) 0.0 10^3/uL (0-0.1) 10/11/22 05:00 Differential Comment MANUAL DIFFERENTIAL 10/11/22 05:00 Manual Slide Review Indicated 10/13/22 08:07 WBC Morphology NORMAL APPEARANCE (NORMAL) 10/10/22 05:26 Platelet Estimate NORMAL (130-450,000) (NORMAL) 10/11/22 05:00 Platelet Morphology NORMAL APPEARANCE (NORMAL) 10/10/22 05:26 RBC Morph Micro Appear 4+ ANISOCYTOSIS (NORMAL) 2+ MACROCYTOSIS (NORMAL) 10/13/22 08:07 RBC Morph Micro Appear 4+ ANISOCYTOSIS (NORMAL) 2+ MACROCYTOSIS (NORMAL) 10/13/22 08:07 Sodium 133 mmol/L (135-145) L 10/14/22 05:07 Potassium 3.8 mmol/L (3.5-5.0) 10/14/22 05:07 Chloride 101 mmol/L (101-111) 10/14/22 05:07 Carbon Dioxide 26 mmol/L (21-32) 10/14/22 05:07 Anion Gap 6.0 (6-13) 10/14/22 05:07 BUN < 5 mg/dL (6-20) L 10/14/22 05:07 Creatinine 0.6 mg/dL (0.6-1.2) 10/14/22 05:07 Estimated GFR (MDRD) 157 (>89) 10/14/22 05:07 Glucose 106 mg/dL (70-100) H 10/14/22 05:07 Calcium 7.9 mg/dL (8.5-10.3) L 10/14/22 05:07 Phosphorus 3.8 mg/dL (2.5-4.6) 10/11/22 05:00 Magnesium 1.7 mg/dL (1.7-2.8) 10/13/22 08:07 Total Bilirubin 9.8 mg/dL (0.2-1.0) H 10/13/22 08:07 Direct Bilirubin 5.6 mg/dL (0.1-0.5) H 10/13/22 08:07 AST 79 IU/L (10-42) H 10/13/22 08:07 ALT 24 IU/L (10-60) 10/13/22 08:07 Alkaline Phosphatase 134 IU/L (42-121) H 10/13/22 08:07 Ammonia 80.5 umol/L (7-35) H* 10/13/22 08:07 Total Protein 5.8 g/dL (6.7-8.2) L 10/13/22 08:07 Albumin 2.0 g/dL (3.2-5.5) L 10/13/22 08:07 Globulin 3.8 g/dL (2.1-4.2) 10/13/22 08:07 Albumin/Globulin Ratio 0.5 (1.0-2.2) L 10/11/22 05:00 Stl C. diff Tox B Gene NEGATIVE (NEGATIVE) 10/11/22 16:35 Ethyl Alcohol < 5.0 mg/dL 10/06/22 14:41 - Procedures Procedures: Procedures CLOSURE SKIN & SUBCUTANEOUS NEC (11/17/12)
[2022-10-14] MEDS: NICOTINE 14 MG PATCH TOP SCH (08:37)
[2022-10-14] MEDS: POTASSIUM CHLORIDE 10 MEQ CAPSULE PO SCH ×2 (08:37→17:09)
[2022-10-14] MEDS: MAGNESIUM OXIDE 400 MG TABLET PO SCH (08:37)
[2022-10-14] MEDS: SERTRALINE 50 MG TABLET PO SCH (08:38)
[2022-10-14] MEDS: THIAMINE 100 MG TABLET PO SCH (08:38)
[2022-10-14] MEDS: PRENATAL VITAMIN TABLET PO SCH (08:38)
[2022-10-14] MEDS: SACCHAROMYCES BOULARDII 250 MG CAPSULE PO SCH ×2 (08:38→17:09)
[2022-10-14] MEDS: METOPROLOL SUCCINATE 50 MG TABLET PO SCH (08:38)
[2022-10-14] MEDS: SIMETHICONE CHEW 80 MG TABLET PO SCH ×4 (08:38→20:35)
[2022-10-14] MEDS: metroNIDAZOLE 250 MG TABLET PO SCH ×3 (08:47→17:09)
[2022-10-14] MEDS: CIPROFLOXACIN 250 MG TABLET PO SCH ×2 (08:47→20:35)
[2022-10-15] MEDS: SODIUM CHLORIDE FLUSH 0.9% 10 ML SYRINGE IVP SCH ×2 (00:06→09:03)
[2022-10-15 05:40] LABS: BASOPHILS % (AUTO) 0.8 %; EOSINOPHILS % (AUTO) 0.7 %; HGB - HEMOGLOBIN 8.8 g/dL (14.0-18.0); LYMPHOCYTES % (AUTO) 12.8 %; MEAN CORPUSCULAR HEMOGLOBIN 36.5 pg (27.0-31.0); MEAN CORPUSCULAR HGB CONC 32.6 g/dL (32.0-36.0); MEAN PLATELET VOLUME 10.8 fL (7.4-11.4); MONOCYTES % (AUTO) 12.9 %; NEUTROPHILS % (AUTO) 72.4 %; PLT - PLATELET COUNT 196 10^3/uL (130-450); RED BLOOD COUNT 2.41 10^6/uL (4.70-6.10); RED CELL DISTRIBUTION WIDTH 20.5 % (12.0-15.0)
[2022-10-15 05:51] LABS: ABNORMAL LYMPHS % (MANUAL) 0 %
[2022-10-15 05:52] LABS: CALCIUM 7.7 mg/dL (8.5-10.3); CREATININE 0.5 mg/dL (0.6-1.2); MAGNESIUM 1.7 mg/dL (1.7-2.8); PHOSPHORUS 3.4 mg/dL (2.5-4.6); POTASSIUM 4.1 mmol/L (3.5-5.0)
[2022-10-15 06:01] LABS: BAND NEUTROPHILS % (MANUAL) 1 %; EOSINOPHILS # (MANUAL) 0.1 10^3/uL (0-0.7); LYMPHOCYTES # (MANUAL) 2.2 10^3/uL (1.5-3.5); LYMPHOCYTES % (MANUAL) 17 %; NEUTROPHILS # (MANUAL) 9.6 10^3/uL (1.5-6.6)
[2022-10-15 06:02] LABS: DIFFERENTIAL COMMENT MANUAL DIFFERENTIAL; PLATELET ESTIMATE, MANUAL NORMAL (130-450,000) (NORMAL); PLATELET MORPHOLOGY NORMAL APPEARANCE (NORMAL); WBC MORPHOLOGY (MULTIPLE) NORMAL APPEARANCE (NORMAL)
[2022-10-15] MEDS: IBUPROFEN 600 MG TABLET PO PRN (07:48)
[2022-10-15] MEDS: SIMETHICONE CHEW 80 MG TABLET PO SCH ×2 (07:48→13:50)
[2022-10-15] MEDS: metroNIDAZOLE 250 MG TABLET PO SCH ×2 (07:49→11:50)
[2022-10-15] MEDS: POTASSIUM CHLORIDE 10 MEQ CAPSULE PO SCH (07:49)
[2022-10-15] MEDS: SACCHAROMYCES BOULARDII 250 MG CAPSULE PO SCH (07:50)
[2022-10-15] MEDS: NICOTINE 14 MG PATCH TOP SCH (09:03)
[2022-10-15] MEDS: METOPROLOL SUCCINATE 50 MG TABLET PO SCH (09:03)
[2022-10-15] MEDS: SERTRALINE 50 MG TABLET PO SCH (09:03)
[2022-10-15] MEDS: CIPROFLOXACIN 250 MG TABLET PO SCH (09:03)
[2022-10-15] MEDS: THIAMINE 100 MG TABLET PO SCH (09:03)
--- NOTE | 2022-10-15 11:17 | DISCHARGE SUMMARY ---
Discharge Summary Admit Date: 10/06/22 Discharge Date: 10/15/22 Discharging Provider: Armida Espinoza MD Primary Care Provider: JOSIAS John Code Status: Attempt Resuscitation Condition at Discharge: Fair Discharge Disposition: 01 Home, Self Care - DIAGNOSES Discharge Diagnoses with Status of Each Condition: 1. Hypokalemia and hypomagnesemia due to #2 2. Colitis 3. Liver failure due to alcohol abuse 4. Alcoholic cirrhosis 5. Thrombocytopenia 6. Leukocytosis 7. Depression/adjustment disorder 8. Macrocytic anemia 9. Hyponatremia - HPI History of Present Illness: This is an interim history and physical. The patient was just discharged this morning. He was admitted October 02 because he had a become unconscious at home after a fall. Mom thought that he had coded and called EMS thinking that he needed CPR. He was unconscious because of liver failure and alcohol intoxication. His MELD score is 21. He had quite a bit of nausea, scant emesis. All of that was stabilized with IV fluids, minimal intervention with the CIWA protocol use of Ativan. He was started on lactulose. His main problem has been electrolyte derangement and he is required quite a bit of replacement for calcium, phosphorus, and potassium. This morning he stated that he was leaving AMA. I spent 2 encounters with him trying to explain to him why he needed to stay if only for the potassium supplementation part. He refused and left AMA and had his mother pick him up.His usual home meds are only omeprazole 20 mg a day. I added metoprolol, lactulose, thiamine. I also started him on Zoloft this last admission for possible depression. His mother called me twice after discharge. Her name is Debi and her number is [phone]. I had to educate her on the rights of patients. She felt that any person could be detained on the basis of poor decisions. For instance he could be teen because he drinks, he could be detained because he has liver failure because of his drinking. I explained to her I could not. He had to want to be here of his own volition and if he left AMA it was up to him. Only if she was his power of filter washer and presser or appointed guardian could she forced him to come to the hospital. She and various family members spoke to him. They kept on encouraging him to come back. He shared with the emergency room provider that he does not want to be here. If it were up to him he would not come back to the hospital. But he feels like his family is forcing him to do so so now he is back. This will be his third admission between July 02 and now. He has also been seen in the ED 2 other times for alcohol intoxication. Social work has spent quite a bit of time with this gentleman. They feel that it may be in his best interest to be involuntarily detained. Once he is medically clear, potassium is stable, vital stable, he may be candidate for DCR evaluation. - Past Medical History Cardiovascular: reports: None Respiratory: reports: None Neuro: reports: None Endocrine/Autoimmune: reports: None GI: reports: GERD : reports: None HEENT: reports: None Psych: reports: Depression Musculoskeletal: reports: None Derm: reports: None MRSA Hx?: No - CONSULTS | PROCEDURES Procedures: Abdomen pelvis CT with abdominal pelvic ascites at slightly increased from the prior exam with his last admission. Persistent thickening and inflammatory changes in the right and transverse colon suggestive of colitis. No ischemia or abscess. Hepatomegaly with steatosis. C. difficile toxin negative stool - HOSPITAL COURSE Hospital Course: Per the hospitalist summary: (1) Colitis Assessment/Plan: When his abdominal pain, nausea and poor appetite returned, he had a CT abd/pelvis done 10/09, which showed definite colitis of the ascending and transverse colon. There was also slightly more ascites than on last CT. I then changed his diet from Reg diet to low fiber, and no red meat and no milk products, for easier digestion and less gas. He has had a hyper tympanic abdomen exam for the last 4 days. I therefore had started Simethicone prn and then made it scheduled Simethicone before meals. He still had daily diarrhea. I stopped his Lactulose several days ago, due to the amount of watery diarrhea. On 10/12 was the first day with some amount of formed stool He has been on iv Cipro and Flagyl antibiotics for 4 days. He was continued on a low fiber and no red meat or milk product diet. He was continued on oral antibiotics and he is to receive 5 more days of Cipro and Flagyl by mouth to complete 10 days of therapy. He is to continue probiotics. When he is seen by his primary care provider a CBC and BMP should be done. (2) Hypokalemia He was admitted October 02 through October 06 for syncope in the context of acute intoxication. He was identified as dehydrated, alcoholic hepatitis, hepatic encephalopathy, a MELD score of 21. He did go through withdrawal then, but symptoms were minimal tachycardia and no tremulousness, seizures or delirium. Before he left A on 10/06, the main focus of treatment consisted of treating his electrolyte derangement of low calcium, low magnesium, low phosphorus and very low potassium. Then he returned later that day 10/06. I suspect his low electrolytes are from the previous N/V and the ongoing diarrhea. He was losing electrolytes faster than we could replace. He has continued to have diarrhea, but N/V resolved. We have needed to give him K riders and increased his scheduled oral potassium supplement His K has been in a good range for 3 days (all labs were reviewed). He will be sent home on continued potassium supplementation. A BMP should be checked in the next week. This patient is on spironolactone and potassium. His potassium should be followed very carefully. 3) Hypomagnesemia Mg is also intermittently low. This is responded to IV magnesium supplementation. He is now on oral supplementation. He is to continue magnesium oxide twice a day and magnesium level should also be repeated with his BMP in the next week. 4) Liver failure due to alcohol abuse His MELD score was 21. AST has improved daily. ALT has always been normal. Unfortunately bilirubin and Ammonia are elevated. The Hospitalist explained at length that this is not a good prognostic indicator. With time, if he stops drinking, his liver hopefully can slowly heal. He needs to follow-up with Hepatology in the outpatient setting. He needs to stop drinking alcohol. He was on Librium 5 mg p.o. twice daily, which was tapered down and stopped 10/12 afternoon. CIWA protocol was also stopped. I had him on 2 days of IV Lasix because of the increased ascites seen on the most recent CT scan done 10/09. On 10/12 that was changed to daily p.o. Lasix. He was changed to a low-salt diet at 2 g. He was continued on thiamine and folate. Lasix was stopped and he was switched to p.o. spironolactone to be taken on Mondays, Wednesdays, Fridays and Sundays. He should get a monthly weigh-in. And again close follow-up of BUN, creatinine, and potassium on spironolactone. 5) Alcoholic cirrhosis On examination he has minimal ascites and no anasarca, but his abdomen is distended. Ammonia level has been high but he does not appear encephalopathic. CT of the abdomen does not show hepatosplenomegaly but has steatosis. His MELD score was 21. Lactulose was started October 03 mainly because of the high ammonia level not because he was encephalopathic. I stopped Lactulose when his diarrhea was unrelenting. He had abdomen pelvis CT in June 2022 and October 02, 2022. He had hepatomegaly and a marked fatty liver. There was mild ascites. His biliary system is within normal limits. He does not have splenomegaly yet. There are no anatomic changes of portal hypertension yet. He is at high risk for dying of his alcoholic liver disease because of continued severe alcohol abuse. The last Hospitalist discussed with Social Work, the fact that this is his third admission in 3 months. He keeps on insisting that he can stop alcohol abuse by himself. He has previously refused to go to rehab, refused to go to counseling. We were considering a DCR evaluation once he is done with his acute medical problems of the colitis, and electrolyte depletions, which needed to be stabilized. On 10/14 I asked him how he plans to deal with alcohol abuse if he is discharged t omorrow. He says he is planning to go to [place] for the 6-month program and has the funds for this. Alternatively he would go to the [facility] 3-month program. He says his mother and cousin are very much backing him up to do this. As such we decided not to do a DCR evaluation for possible involuntary hold. On his own volition he is agreeing to inpatient rehab. He states that they have beds available because he checked with them yesterday. After today's discharge she is can to be contacting them immediately to see when is the soonest he can be admitted. 6) Thrombocytopenia Due to Cirrhosis, alcohol effect on bone marrow. He did not require transfusion during his stay. 7) Leukocytosis. There was no fever, no cough or congestion, no abdominal pain, no urgency, frequency, dysuria at admission. The initial CT of the abdomen showed an enlarged liver with cirrhosis, gallbladder and biliary tree were within normal limits, no splenomegaly, no hydronephrosis, bladder appeared normal. He did not have a UTI. Thickening of the right colon was seen with a small amount of ascites. But no true colitis was diagnosed then. Chest CT showed new thickening of the distal esophagus which could indicate esophageal injury. Bilateral pulmonary atelectasis versus pneumonia but no consolidation, pleural effusions, with groundglass density of the bilateral lower lobes, which could be simple atelectasis As such, in looking for a source of infection causing the leukocytosis, nothing was definitive. Then on 10/09, he felt worse, abd was more distended and a repeat CT abd/pelvis showed colitis of the ascending and transverse colon. He had daily explosive, watery diarrhea then, and I stopped his Lactulose, due to the amount of watery diarrhea. After being on IV Cipro and Flagyl for 4 days, he formed some stool on October 12. White cell count went from 11,000-12,000. He was switched to oral Cipro and Flagyl October 14. He will complete 5 more days of oral antibiotic therapy in the outpatient setting. He should have a CBC checked in 1 week to follow his white cell count. 8) Depression/adjustment disorder. We started him on Zoloft 25 mg a day with the last admission. When readmitted we increased the Zoloft to 50 mg a day. He has noticed that over the past few days his reactions are to everything or not is "dramatic". I told him that is usually the feeling when he is on antidepressant and that it is probably working. We are recommending that he get an outpatient mental health provider in addition to his rehab counselor. 9) Macrocytic anemia Free T4, free T3, TSH all normal. B12 level was normal in June 2022. Folate was normal in June and 2022. Most likely this is direct toxicity of alcohol on bone marrow. Continue P.o. thiamine 100 mg daily. 10) Hyponatremia. Due to alcohol abuse, lack of p.o. intake, dehydration. He received IV fluids for hydration. Then his IV fluids were discontinued, and he is on a low-salt diet due to ascites. No evidence of fluid overload . Sodium on admission was 132. Sodium at discharge was 134. It should be noted that serotonin reuptake inhibitors such as Zoloft can also cause hyponatremia by themselves. His BMP should be monitored for sodium level since he is on Zoloft and has cirrhosis. Social work has verified that this patient has agreed to enter into an inpatient rehab program in [place]. He is to notify them of his inpatient discharge to this hospital. He had spoken to them yesterday and they assured him they still have beds available. As such she will be calling them later today with the expectation that he will be being admitted in the next couple of days. I have advised him again, to his annoyance, that he cannot drink any alcohol for the rest of his life. That means no alcohol between now and admission to the inpatient rehab. On examination, temperature is 36.5. Heart rate 89. Blood pressure 121/65. Respirations 16. 95% on room air. He is a morbidly obese white male who is 5 foot 11 inches tall, 105 kg. While he has psychomotor slowing I believe that may be his baseline. He is not encephalopathic. He is a disheveled bearded white male. Able to ambulate in the room without any assistance. He has no ataxia. Neck has shotty adenopathy but is supple. Lungs have diminished breath sounds at the bases with a large AP diameter chest but is otherwise clear. There are no crackles, rhonchi or wheezing. Regular rate and rhythm. Abdomen is obese, soft, nontender. Normal bowel sounds. Extremities have trace edema. He is oriented to person place and time. Intact speech pattern. Lucid historian. This document was made in part using voice recognition software. While efforts are made to proofread this document, sound alike and grammatical errors may occur. Greater than 30 minutes was spent coordinating discharge - ALLERGIES Allergies/Adverse Reactions: Allergies Allergy/AdvReac Type Severity Reaction Status Date / Time No Known Drug Allergies Allergy Verified 08/25/22 09:58 - MEDICATIONS Home Medications: Ambulatory Orders Medication Instructions Recorded Confirmed Omeprazole Magnesium 20 mg PO QDAC 07/02/22 10/06/22 Metoprolol Succinate [Toprol Xl] 50 mg PO DAILY #30 tab 08/28/22 10/06/22 Ciprofloxacin [Cipro] 250 mg PO BID #10 tab 10/15/22 Ibuprofen [Motrin] 600 mg PO Q6HR PRN tab 10/15/22 Magnesium Oxide [Mag Ox] 400 mg PO DAILY@1200 #0 tab 10/15/22 Pnv No.121/Iron/Folic Acid 1 each PO DAILY #100 tablet 10/15/22 [ Multivitamin Tablet] Potassium Chloride [Micro-K] 30 meq PO BIDWM #60 cap 10/15/22 Saccharomyces Boulardii [Florastor] 250 mg PO BIDWM cap 10/15/22 Sertraline [Zoloft] 50 mg PO DAILY #60 tab 10/15/22 Spironolactone [Aldactone] 25 mg PO MOWEFRSA #20 tab 10/15/22 Thiamine [Vitamin B-1] 100 mg PO DAILY #30 tab 10/15/22 metroNIDAZOLE [Flagyl] 500 mg PO TIDWM #15 tab 10/15/22 - LABS Result Diagrams: 10/15/22 05:29 10/15/22 05:29
--- NOTE | 2022-10-15 11:24 | Discharge Plan ---
Discharge Plan Problem Reviewed?: Yes Disposition: Home, Self Care Condition: Fair Prescriptions: Spironolactone [Aldactone] 25 mg PO MOWEFRSA #20 tab Ciprofloxacin [Cipro] 250 mg PO BID #10 tab metroNIDAZOLE [Flagyl] 500 mg PO TIDWM #15 tab Potassium Chloride [Micro-K] 30 meq PO BIDWM #60 cap Pnv No.121/Iron/Folic Acid [ Multivitamin Tablet] 1 each PO DAILY #100 tablet Thiamine [Vitamin B-1] 100 mg PO DAILY #30 tab Sertraline [Zoloft] 50 mg PO DAILY #60 tab Diet: Low Sodium Activity Restrictions: Activity as Tolerated Shower Restrictions: No Driving Restrictions: Yes (no driving) Health Concerns: You were admitted to the hospital October 02 because he had passed out. Your mother thought that you had and she called EMS because she felt that you were not breathing. When EMS got there, you were still breathing and you had a pulse. When you were brought to the emergency room we found the diagnosis of your fainting to be due to acute alcohol intoxication with dangerous alcohol levels in your bloodstream. You had alcoholic hepatitis, alcoholic cirrhosis, and an elevated white cell count indicating severe inflammation. You had nausea, vomiting, and had lost quite a bit of electrolytes because of that. Your calcium, magnesium, potassium, and phosphorus were low. Treatment between October 02 and consisted of hydrating you, correcting your electrolyte imbalance, and improving your nausea and vomiting. You went through mild withdrawal. You did not want to be here anymore and you left AGAINST MEDICAL ADVICE on October 06. Your mom wanted us to involuntarily detained you but I explained to her that that was illegal. Your family was able to convince you to return any return to the hospital October 06 to be treated for the above problems. Between October 06 and now, we stopped your lactulose because it just made your diarrhea worse. You still have an elevated ammonia level in your bloodstream due to cirrhosis of the liver. We found you to have colitis of the bowel and we gave you antibiotics for that. You still need to take 5 more days of antibiotics to complete therapy. Some of your water retention we treated with spironolactone. And we continue to give you potassium for a low potassium. Most of our concern now centers on the fact that you have severe cirrhosis with a MELD score of 21. We used a MELD score to arcade game technician how severely ill the patient is from cirrhosis and how close they are to needing a liver transplant. A 21 is not a good number. In order to help yourself stop drinking, you have agreed to enter into an inpatient rehab program in [place]. You have spoken to our social work and the agreement is that you are being discharged from this facility with a promise on your part that you were voluntarily admitting yourself to a rehab facility in [place]. Plan of Treatment: Inpatient admission to a rehab facility in [place]. To complete therapy there. You can no longer drink. Ever again. Your liver disease is progressed to the point of complete liver failure as a consequence of your drinking. That would result in your . Please complete treatment for your colitis and you will need to complete antibiotics with Cipro 250 mg by mouth twice a day for 5 days, and Flagyl 500 mg by mouth 3 times a day for 5 days. Take probiotics for your diarrhea. Any [id number] probiotic will do Because of your previous alcoholism make sure that you take thiamine 100 mg daily, and a vitamin which has a lot of folic acid daily as well. For depression you have been started on Zoloft. Currently we have you on 50 mg a day and that has been called into your pharmacy. For your low potassium, we need you to take potassium twice a day. That has been called to the pharmacy. You should also buy an [id number] magnesium oxide at 400 mg tablets. Take 1 to 2 tablets a day. Care Goals: To achieve a sobriety state that is permanent. That will in turn result in slow liver healing and very slow resolution of your cirrhosis. Assessment: Patient is alert, oriented, making his own decisions. He is interested in agreement with social work where he promises to follow through with voluntary admission to an inpatient rehab facility. No Smoking: If you smoke, Please STOP! Call for help. Follow-up with: Radha Mills ARNP [Credentialed Staff Provider] -
[2022-10-15] MEDS: CALCIUM CARBONATE CHEW 500 MG TABLET PO PRN (11:50)
[2022-10-15] MEDS ORDERED: PRENATAL VITAMIN TABLET PO SCH (12:00)
[2022-10-15] MEDS ORDERED: MAGNESIUM OXIDE 400 MG TABLET PO SCH (12:00)
[2022-10-15 13:17] VITALS: BP 121/68
[2022-10-16] MEDS ORDERED: SPIRONOLACTONE 25 MG TABLET PO SCH (08:00)
== END 2022-10-15 14:10 | disposition home or self-care (01) | DRG 433 ==
LOC: EDUNIT# → ED 13:58 → MS2 14:31
PROVIDERS: ADMIT Specialist; ATTEND Specialist
DX: K70.40 Alcoholic hepatic failure without coma (principal); E72.20 Disorder of urea cycle metabolism, unspecified; E87.1 Hypo-osmolality and hyponatremia; K70.10 Alcoholic hepatitis without ascites; K70.30 Alcoholic cirrhosis of liver without ascites; R11.2 Nausea with vomiting, unspecified; D72.829 Elevated white blood cell count, unspecified; E87.6 Hypokalemia; K21.9 Gastro-esophageal reflux disease without esophagitis; D53.9 Nutritional anemia, unspecified; E03.9 Hypothyroidism, unspecified; F10.129 Alcohol abuse with intoxication, unspecified; F17.200 Nicotine dependence, unspecified, uncomplicated; R74.01 Elevation of levels of liver transaminase levels; E83.42 Hypomagnesemia; K52.9 Noninfective gastroenteritis and colitis, unspecified; F43.21 Adjustment disorder with depressed mood; E80.6 Other disorders of bilirubin metabolism; E83.51 Hypocalcemia; E83.39 Other disorders of phosphorus metabolism; D69.59 Other secondary thrombocytopenia; E86.0 Dehydration
CPT/HCPCS: 36415; 74177; 80048; 80053; 80076; 80320; 82140; 83735; 84100; 85025; 87493; 99285; A9270; Q0162; Q9963; Q9967

== ENCOUNTER 2022-10-22 16:56 | Outpatient (CLI) | payer MEDICAID | END 2022-10-22 23:59 | disposition critical access hospital (66) | LOC: EMS 16:56 | DX: K92.0 Hematemesis (principal) | CPT/HCPCS: A0425; A0427; A0999 ==

== ENCOUNTER 2022-11-07 20:00 | Outpatient (CLI) | payer MEDICAID | END 2022-11-07 23:59 | disposition critical access hospital (66) | LOC: EMS 20:00 | DX: R10.84 Generalized abdominal pain (principal); R14.0 Abdominal distension (gaseous); K92.0 Hematemesis; R53.1 Weakness; R26.81 Unsteadiness on feet | CPT/HCPCS: A0425; A0427; A0999 ==

== ENCOUNTER 2022-11-07 20:58 | Inpatient (IN) | payer MEDICAID ==
[2022-11-07] MEDS ORDERED: PANTOPRAZOLE 40 MG VIAL IV STA (21:14)
[2022-11-07 21:40] LABS: BASOPHILS % (AUTO) 0.5 %; EOSINOPHILS % (AUTO) 0.1 %; HGB - HEMOGLOBIN 7.8 g/dL (14.0-18.0); LYMPHOCYTES % (AUTO) 9.1 %; MEAN CORPUSCULAR HEMOGLOBIN 32.5 pg (27.0-31.0); MEAN CORPUSCULAR HGB CONC 32.5 g/dL (32.0-36.0); MEAN PLATELET VOLUME 9.9 fL (7.4-11.4); MONOCYTES % (AUTO) 8.5 %; NEUTROPHILS % (AUTO) 81.2 %; PLT - PLATELET COUNT 254 10^3/uL (130-450); RED CELL DISTRIBUTION WIDTH 22.3 % (12.0-15.0); WHITE BLOOD COUNT 20.8 x10^3/uL (4.8-10.8)
[2022-11-07 21:42] LABS: ABNORMAL LYMPHS % (MANUAL) 0 %
[2022-11-07 21:47] LABS: INR 1.7 (0.8-1.2)
[2022-11-07 21:53] LABS: ALBUMIN 2.3 g/dL (3.2-5.5); ALBUMIN/GLOBULIN RATIO 0.7 (1.0-2.2); BILIRUBIN,TOTAL 3.9 mg/dL (0.2-1.0); CALCIUM 7.9 mg/dL (8.5-10.3); CREATININE 0.5 mg/dL (0.6-1.2); ETOH - ETHANOL 81.3 mg/dL; MAGNESIUM 1.5 mg/dL (1.7-2.8); POTASSIUM 4.2 mmol/L (3.5-5.0); TOTAL PROTEIN 5.8 g/dL (6.7-8.2)
[2022-11-07 22:12] LABS: BAND NEUTROPHILS % (MANUAL) 2 %; LYMPHOCYTES # (MANUAL) 1.5 10^3/uL (1.5-3.5); LYMPHOCYTES % (MANUAL) 7 %; MONOCYTES # (MANUAL) 0.2 10^3/uL (0.0-1.0); NEUTROPHILS # (MANUAL) 19.1 10^3/uL (1.5-6.6)
[2022-11-07 22:14] LABS: DIFFERENTIAL COMMENT MANUAL DIFFERENTIAL; PLATELET ESTIMATE, MANUAL NORMAL (130-450,000) (NORMAL); PLATELET MORPHOLOGY NORMAL APPEARANCE (NORMAL)
[2022-11-07] MEDS ORDERED: chlordiazePOXIDE 25 MG CAPSULE PO STA (22:18)
[2022-11-07] MEDS ORDERED: OCTREOTIDE 500 MCG in SODIUM CHLORIDE 0.9% 100ML 95 ML IV STA (22:40)
[2022-11-07] MEDS ORDERED: cefTRIAXone 1 GM in SODIUM CHLORIDE 0.9% MINIBAG 100 ML IV STA (22:40)
--- NOTE | 2022-11-07 22:51 | HISTORY & PHYSICAL EXAMINATION ---
Chief Complaint - Chief Complaint Chief Complaint: Abdominal Distension History of Present Illness - Admitted From Admitted From:: ER - History Obtained From Records Reviewed: Yes History obtained from: Patient, staff, chart Exam Limitations: H&P was conducted via video remotely, using Access Cart. - History of Present Illness HPI Comment/Other: Patient is in [place]. Physician is in [place]. RN is at bedside, attempting to place p eripheral IV line. 32 yo M with h/o ETOH abuse with h/o ETOH W/D, alcoholic Hepatitis, Hyperthyroi dism, GERD/Gastritis, Depression, Tobacco abuse presented to the ER via EMS for increased abdominal distension/pain, Shortness of breath, hematemesis. Pt has been hospitalized every month x 6 months when he started drinking heavily after a relationship and a job loss. He was last hospitalized from 10/23-11/01 for abdominal pain/distension and bloody emesis. Pt had EGD done on 10/23/22 which showed gastric erosion, non-bleeding esophageal varices. He was started on A/Bs for possible SBP. Paracentesis done improved his symptoms, was negative for SBP. Pt reports feeling much improved after paracentesis at recent hospitalization. Upon discharge, he noted that his abdo was less distended/uncomfortable. He continued to have B/L swollen feet. In the past week, his abdomen slowly distended again and it is now very uncomfortable and causing him to have shortness of breath, no chest pain. Pt was referred to therapist, Psychiatrist, but has not made appointments. He says that he would like to stop ETOH use. However, at home, he did drink vodka again, yesterday. He reports drinking 350 ml of vodka yesterday AM. He says that he did not drink the other days b/c his abdomen was uncomfortable. He has not been able to drink much other fluids or eat d/t abdomen discomfort. Pt continues to smoke 1/2 ppd. He does not take Librium or other ETOH deterrants. Today, he began to have nausea with dry heav es. After multiple dry heavings, he began to throw up small amounts of blood. He did this 9-10x before calling EMS. He measured his latest bloody emesis in the ER: it is 16 ml. He says that his previous emeses were of similar amount. No F/C. No redness of abdo. No CP/cough/Dizziness. No black or bloody stool. In the ER, WBC 20.8, INR 1.7, Ca 7.9, Mg 1.5, Bili 3.9, AST 75, ETOH: 81.3. Pt was given Octreotide, Dilaudid, Protonix, Rocephin and Librium in the ER. History - Past Medical History Cardiovascular: reports: None Respiratory: reports: None Neuro: reports: None Endocrine/Autoimmune: reports: None GI: reports: GERD, Esophageal varices, GI bleed, Pancreatitis, Cirrhosis : reports: None HEENT: reports: None Psych: reports: Depression Musculoskeletal: reports: None Derm: reports: None MRSA Hx?: No - Past Surgical History General: reports: EGD - POLST Patient has POLST: No Meds/Allgy - Home Medications Home Medications: Ambulatory Orders Medication Instructions Recorded Confirmed Omeprazole Magnesium 20 mg PO QDAC 07/02/22 10/23/22 Metoprolol Succinate [Toprol Xl] 50 mg PO DAILY #30 tab 08/28/22 10/23/22 Potassium Chloride [Micro-K] 30 meq PO BIDWM #60 cap 10/15/22 10/23/22 Sertraline [Zoloft] 50 mg PO DAILY #60 tab 10/15/22 10/23/22 Multivitamin [Theragran] 1 tab PO DAILY 10/23/22 10/23/22 Furosemide [Lasix] 20 mg PO DAILY #30 tablet 11/01/22 Lactulose 15 ml PO DAILY PRN #30 ea 11/01/22 Magnesium Oxide [Mag Ox] 400 mg PO BID #60 tab 11/01/22 Spironolactone [Aldactone] 25 mg PO DAILY #30 tab 11/01/22 Thiamine [Vitamin B-1] 100 mg PO DAILY tab 11/01/22 - Allergies Allergies/Adverse Reactions: Allergies Allergy/AdvReac Type Severity Reaction Status Date / Time No Known Drug Allergies Allergy Verified 11/07/22 21:07 Review of Systems - All Other Systems All Other Systems: reports: Reviewed and negative Exam - Vital Signs Reviewed Vital Signs: Yes Vital Signs: Vital Signs x48h Temp Pulse Resp BP Pulse Ox 11/07/22 21:26 129 H 16 114/50 L 96 11/07/22 21:01 36.5 C 125 H 18 114/50 L 94 - Physical Exam General Appearance: positive: No acute distress Eyes Bilateral: positive: EOMI Respiratory: positive: Other (Access cart stethoscope not working; per ER Provider: CTA B/L) Cardiovascular: positive: Other (Access cart stethoscope not working; per ER Provider: RRR, no murmurs) Abdomen: positive: Other (per ER Provider: +distended, +diffuse TTP, no R/G) Neurologic/Psychiatric: positive: Oriented x3, CN's nml (2-12) Conclusion/Plan - Problem List (1) Abdominal pain Conclusion/Plan: Abdominal Pain Abdominal Distension ETOH Cirrhosis with Ascites Leukocytosis Tachycardia Elevatd INR -HR 129, WBC 20.8, INR 1.7, Bili 3.9, AST 75, ETOH: 81.3. -Pt was given Dilaudid, Rocephin and Librium in the ER. -pt s/p Paracentesis (3600 ml removed) on 10/25/22, at risk for SBP -admit to ICU -continue Rocephin, add Flagyl -IR consult for Paracentesis in AM -pain control, NPO, fluid restriction -continue home medications: Lasix, Spironolactone, Lactulose -pt will need outpt F/U with Digital Marketing Intern Hematemesis Anemia Gastric Erosions Esophageal Varices -Hgb 7.8 (Hgb 8.3 on 11/01/22) -pt received 2U PRBC on previous admission for anemia -T/S -1U PRBC ordered in the ER. -EGD done on 10/23/22 showed gastric erosion, non-bleeding esophageal varices. -pt has had multiple small amounts of hematemesis; most likely d/t gastric erosions -cannot rule out esophageal variceal bleed -Pt was given Octreotide, Protonix, in the ER. -continue Octreotide gtt and Protonix -H/H Q6 hrs; transfuse PRN Hgb <7 or active bleeding and <8 -avoid antiplatelet agents and anticoagulants. ETOH abuse -high MELD score. -pt counseled multiple times about quitting ETOH and given contact information for F/U services, which he has not followed -pt will need outpt F/U with Road Manager or Rehab -continue home medications: MVI, Thiamine -consider starting Librium prior to discharge Hypocalcemia Low Magnesium -Ca 7.9, Mg 1.5 -due to ETOH abuse/not eating -supplement PRN; monitor labs Depression -worse x 6 months s/p relationship break and job loss -continue home medications:Zoloft -recommend Psychiatry consult +Tobacco abuse -cessation counseling -pt requests [facility]; ordered. VTE Prophylaxis: SCDs only d/t GI bleed Code Status: Full Code ~Jeanie Saldana MD Hospitalist - Lab Results Lab results reviewed: Yes Fish Bones: 11/07/22 21:32 11/07/22 21:32
[2022-11-07] MEDS ORDERED: OCTREOTIDE 100 MCG/ML VIAL ONE (23:06)
[2022-11-07] MEDS ORDERED: cefTRIAXone 1 GM VIAL ONE (23:06)
--- NOTE | 2022-11-07 23:16 | ED Physician Documentation ---
History of Present Illness - Stated complaint Stated Complaint: ABX SWELLING - Chief complaint Chief Complaint: Abd Pain - History obtained from History obtained from: Patient - Additonal information Additional information: 32yM with pmh alcoholic cirrhosis (still actively drinking), GERD/Gastritis, esophageal varices, presents bibems with abdominal pain and distension and vomiting blood earlier today. denies dark or bloody stools. denies fever, ams. just in the hospital last week and paracentesis was done at that time. PD PAST MEDICAL HISTORY - Past Medical History Cardiovascular: None Respiratory: None Neuro: None Endocrine/Autoimmune: None GI: GERD, Esophageal varices, GI bleed, Pancreatitis, Cirrhosis : None HEENT: None Psych: Depression Musculoskeletal: None Derm: None - Past Surgical History Past Surgical History: No General: EGD - Present Medications Home Medications: Ambulatory Orders Medication Instructions Recorded Confirmed Omeprazole Magnesium 20 mg PO QDAC 07/02/22 10/23/22 Metoprolol Succinate [Toprol Xl] 50 mg PO DAILY #30 tab 08/28/22 10/23/22 Potassium Chloride [Micro-K] 30 meq PO BIDWM #60 cap 10/15/22 10/23/22 Sertraline [Zoloft] 50 mg PO DAILY #60 tab 10/15/22 10/23/22 Multivitamin [Theragran] 1 tab PO DAILY 10/23/22 10/23/22 Furosemide [Lasix] 20 mg PO DAILY #30 tablet 11/01/22 Lactulose 15 ml PO DAILY PRN #30 ea 11/01/22 Magnesium Oxide [Mag Ox] 400 mg PO BID #60 tab 11/01/22 Spironolactone [Aldactone] 25 mg PO DAILY #30 tab 11/01/22 Thiamine [Vitamin B-1] 100 mg PO DAILY tab 11/01/22 - Allergies Allergies/Adverse Reactions: Allergies Allergy/AdvReac Type Severity Reaction Status Date / Time No Known Drug Allergies Allergy Verified 11/07/22 21:07 - Social History Does the pt smoke?: Yes Smoking Status: Current every day smoker Does the pt drink ETOH?: Yes Does the pt have substance abuse?: Yes - Immunizations Immunizations are current?: Yes - POLST Patient has POLST: No PD ED PE NORMAL - Vitals Vital signs reviewed: Yes - General General: Alert and oriented X 3, No acute distress, Other (jaundiced, pale appearing) - HEENT HEENT: Atraumatic, PERRL, EOMI - Neck Neck: Supple, no meningeal sign - Cardiac Cardiac: Other (tachycardic rate, regular rhythm) - Respiratory Respiratory: No respiratory distress, Clear bilaterally - Abdomen Abdomen: Other (distended and diffusely tender) - Derm Derm: Normal color, Warm and dry - Neuro Neuro: No motor deficit, No sensory deficit Results - Vitals Vitals: Vital Signs - 24 hr 11/07/22 11/07/22 21:01 21:26 Temperature 36.5 C Heart Rate 125 H 129 H Respiratory 18 16 Rate Blood Pressure 114/50 L 114/50 L O2 Saturation 94 96 Oxygen O2 Source Room air - Labs Labs: Laboratory Tests 11/07/22 11/07/22 11/07/22 21:32 21:32 21:32 WBC 20.8 H RBC 2.40 L Hgb 7.8 L Hct 24.0 L MCV 100.0 H MCH 32.5 H MCHC 32.5 RDW 22.3 H Plt Count 254 MPV 9.9 Neut # (Auto) Not Reportable Lymph # (Auto) Not Reportable Towns # (Auto) Not Reportable Eos # (Auto) Not Reportable Baso # (Auto) Not Reportable Absolute Nucleated RBC Not Reportable Total Counted 100 Band Neuts % (Manual) 2 Abnorm Lymph % (Manual) 0 Nucleated RBC % Not Reportable Neutrophils # (Manual) 19.1 H Lymphocytes # (Manual) 1.5 Monocytes # (Manual) 0.2 Eosinophils # (Manual) 0.0 Basophils # (Manual) 0.0 Differential Comment MANUAL DIFFERENTIAL Platelet Estimate NORMAL (130-450,000) Platelet Morphology NORMAL APPEARANCE RBC Morph Micro Appear 1+ SCHISTOCYTES PT 18.0 H INR 1.7 H Sodium Potassium Chloride Carbon Dioxide Anion Gap BUN Creatinine Estimated GFR (MDRD) Glucose Calcium Magnesium Total Bilirubin AST ALT Alkaline Phosphatase Total Protein Albumin Globulin Albumin/Globulin Ratio Lipase Ethyl Alcohol Blood Type O POSITIVE Antibody Screen NEGATIVE Crossmatch IS Only See Detail 11/07/22 21:32 WBC RBC Hgb Hct MCV MCH MCHC RDW Plt Count MPV Neut # (Auto) Lymph # (Auto) Towns # (Auto) Eos # (Auto) Baso # (Auto) Absolute Nucleated RBC Total Counted Band Neuts % (Manual) Abnorm Lymph % (Manual) Nucleated RBC % Neutrophils # (Manual) Lymphocytes # (Manual) Monocytes # (Manual) Eosinophils # (Manual) Basophils # (Manual) Differential Comment Platelet Estimate Platelet Morphology RBC Morph Micro Appear PT INR Sodium 137 Potassium 4.2 Chloride 104 Carbon Dioxide 24 Anion Gap 9.0 BUN 8 Creatinine 0.5 L Estimated GFR (MDRD) 194 Glucose 126 H Calcium 7.9 L Magnesium 1.5 L Total Bilirubin 3.9 H AST 75 H ALT 29 Alkaline Phosphatase 163 H Total Protein 5.8 L Albumin 2.3 L Globulin 3.5 Albumin/Globulin Ratio 0.7 L Lipase 38 Ethyl Alcohol 81.3 Blood Type Antibody Screen Crossmatch IS Only PD Medical Decision Making - ED course ED course: 32yM presents to the ED with abdominal ascites, anemia 2/2 gib. 1u prbc hung. plan to admit ICU. Per our board we have one ICU and 4 MS beds available. Update: there may not be a bed till after shift change. patient will board in ED for now. Departure - Departure Disposition: 66 [facility] DC/Xfer Clinical Impression: GIB (gastrointestinal bleeding), Vomiting, Abdominal pain, Alcoholic cirrhosis Condition: Serious Forms: PCP List
[2022-11-07] MEDS ORDERED: LACTULOSE 10 GM /15 ML UDC PO PRN (23:37)
[2022-11-07] MEDS ORDERED: OCTREOTIDE 500 MCG in SODIUM CHLORIDE 0.9% 100ML 95 ML IV SCH (23:45)
[2022-11-08] MEDS: ONDANSETRON ODT 4 MG TABLET TL PRN (01:30)
[2022-11-08] MEDS: oxyCODONE 5 MG TABLET PO PRN (02:46)
[2022-11-08] MEDS: metroNIDAZOLE 500 MG/100 ML 500 MG/100 ML BAG IV SCH ×4 (04:00→23:31)
[2022-11-08] MEDS: HYDROmorphone 0.5 MG/0.5 ML SYRINGE IVP PRN ×4 (04:08→17:45)
[2022-11-08] MEDS: PROCHLORPERAZINE 10 MG/2 ML VIAL IVP PRN ×3 (04:49→20:00)
[2022-11-08] MEDS: SODIUM CHLORIDE FLUSH 0.9% 10 ML SYRINGE IVP SCH ×4 (04:54→22:49)
[2022-11-08 05:18] LABS: BASOPHILS % (AUTO) 0.4 %; EOSINOPHILS % (AUTO) 0.3 %; HCT - HEMATOCRIT 23.9 % (42.0-52.0); HGB - HEMOGLOBIN 7.8 g/dL (14.0-18.0); LYMPHOCYTES % (AUTO) 9.7 %; MEAN CORPUSCULAR HEMOGLOBIN 32.4 pg (27.0-31.0); MEAN CORPUSCULAR HGB CONC 32.6 g/dL (32.0-36.0); MEAN CORPUSCULAR VOLUME 99.2 fL (80.0-94.0); MONOCYTES % (AUTO) 8.8 %; NEUTROPHILS % (AUTO) 80.4 %; PLT - PLATELET COUNT 189 10^3/uL (130-450); RED BLOOD COUNT 2.41 10^6/uL (4.70-6.10); RED CELL DISTRIBUTION WIDTH 21.8 % (12.0-15.0); WHITE BLOOD COUNT 19.7 x10^3/uL (4.8-10.8)
[2022-11-08 05:23] LABS: ABNORMAL LYMPHS % (MANUAL) 0 %
[2022-11-08 05:31] LABS: ALBUMIN 2.3 g/dL (3.2-5.5); ALBUMIN/GLOBULIN RATIO 0.8 (1.0-2.2); CALCIUM 7.7 mg/dL (8.5-10.3); CREATININE 0.5 mg/dL (0.6-1.3); MAGNESIUM 1.2 mg/dL (1.7-2.3); POTASSIUM 4.4 mmol/L (3.5-4.5); TOTAL PROTEIN 5.1 g/dL (6.4-8.9)
[2022-11-08 06:02] LABS: BAND NEUTROPHILS % (MANUAL) 3 %; LYMPHOCYTES # (MANUAL) 2.6 10^3/uL (1.5-3.5); LYMPHOCYTES % (MANUAL) 13 %; MONOCYTES # (MANUAL) 2.6 10^3/uL (0.0-1.0); NEUTROPHILS # (MANUAL) 14.6 10^3/uL (1.5-6.6); PLATELET ESTIMATE, MANUAL NORMAL (130-450,000) (NORMAL)
[2022-11-08 06:03] LABS: DIFFERENTIAL COMMENT MANUAL DIFFERENTIAL
[2022-11-08] MEDS ORDERED: PROCHLORPERAZINE 10 MG/2 ML VIAL IVP STA (07:34)
[2022-11-08] MEDS ORDERED: POTASSIUM CHLORIDE 10 MEQ CAPSULE PO SCH (08:00)
[2022-11-08] MEDS ORDERED: MAGNESIUM OXIDE 400 MG TABLET PO SCH (09:00)
--- NOTE | 2022-11-08 09:01 | ED Physician Documentation ---
ED Addendum - Addendum Addendum: 11/08/22 08:59 The patient did have some nausea returning when I checked on him after change of shift. He requested some more antiemetic. He denied having withdrawal symptoms at this point. I ordered some more Compazine. We will be attentive to any need for benzodiazepines for alcohol withdrawal. He did have a loose stool that was mod in consistency and dark black. Consistent with upper GI bleed. He states he has not had any vomiting over the last several hours. We are waiting bed availability on the floor or ICU. The patient's vitals are stable. Consideration of MedSurg telemetry versus ICU. We will discuss it on morning rounds. Orders have been written by the hospitalist overnight and again just pending bed availability. We reportedly did have beds available overnight but apparently not an ICU 1. We will be attentive to the patient. Recheck blood counts at this point which is now 3 and half hours after the post transfusion blood count.
[2022-11-08 09:11] LABS: HCT - HEMATOCRIT 23.1 % (42.0-52.0); HGB - HEMOGLOBIN 7.6 g/dL (14.0-18.0)
[2022-11-08] MEDS: OCTREOTIDE 500 MCG in SODIUM CHLORIDE 0.9% 100ML 99 ML IV SCH ×2 (09:31→19:43)
[2022-11-08] MEDS: NICOTINE 14 MG PATCH TOP SCH (09:34)
[2022-11-08] MEDS: FUROSEMIDE 20 MG TABLET PO SCH (09:34)
[2022-11-08] MEDS: PANTOPRAZOLE 40 MG VIAL IVP SCH ×2 (09:34→20:04)
[2022-11-08] MEDS: THIAMINE 100 MG TABLET PO SCH (09:35)
[2022-11-08] MEDS: SPIRONOLACTONE 25 MG TABLET PO SCH (09:35)
[2022-11-08] MEDS: MULTIVITAMIN TABLET PO SCH (09:35)
[2022-11-08] MEDS: SERTRALINE 25 MG TABLET PO SCH (09:35)
[2022-11-08] MEDS: cefTRIAXone 2 GM in SODIUM CHLORIDE 0.9% MINIBAG 100 ML IV SCH (09:46)
[2022-11-08] MEDS ORDERED: MAG HYDROX/AL HYDROX/SIMETH 30 ML UDC PO STA (10:51)
[2022-11-08] MEDS: ONDANSETRON 4 MG/2 ML VIAL IVP PRN (13:46)
[2022-11-08] MEDS ORDERED: SODIUM CHLORIDE 0.9% 1,000 ML IV STA (13:56)
--- NOTE | 2022-11-08 14:58 | PHARMACY PROGRESS NOTE ---
- Best Possible Medication History Admit Date and Time: 11/07/22 9454 Processed by: Nursing Medication History completed: Yes Secondary Source(s): Insurance records, Previous admit records (Patient was discharged one week ago) ER nurse verified home medications. Doses were compared to insurance information. As the person ultimately responsible for medication therapy, providers are able to order a medication from an existing home medication list in [facility] via the "Reconcile Routine" prior to Confirmation of that medication by sales support engineer. Such practice is discouraged except when the physician, in their clinical judgment, deems that a medical need exists for a medication without regard to previous use.
[2022-11-08 15:05] LABS: BASOPHILS # (AUTO) 0.1 10^3/uL (0.0-0.1); BASOPHILS % (AUTO) 0.7 %; EOSINOPHILS # (AUTO) 0.4 10^3/uL (0.0-0.7); EOSINOPHILS % (AUTO) 2.3 %; HCT - HEMATOCRIT 24.6 % (42.0-52.0); LYMPHOCYTES # (AUTO) 1.8 10^3/uL (1.5-3.5); LYMPHOCYTES % (AUTO) 9.8 %; MEAN CORPUSCULAR HEMOGLOBIN 32.1 pg (27.0-31.0); MEAN CORPUSCULAR HGB CONC 32.5 g/dL (32.0-36.0); MEAN CORPUSCULAR VOLUME 98.8 fL (80.0-94.0); MEAN PLATELET VOLUME 10.4 fL (7.4-11.4); MONOCYTES # (AUTO) 1.1 10^3/uL (0.0-1.0); NEUTROPHILS % (AUTO) 80.9 %; PLT - PLATELET COUNT 175 10^3/uL (130-450); RED BLOOD COUNT 2.49 10^6/uL (4.70-6.10); RED CELL DISTRIBUTION WIDTH 21.6 % (12.0-15.0); WHITE BLOOD COUNT 18.5 x10^3/uL (4.8-10.8)
[2022-11-08 15:40] LABS: INR 1.6 (0.8-1.2); PT - PROTHROMBIN TIME 16.9 secs (9.9-12.6)
[2022-11-08 15:48] LABS: PARTIAL THROMBOPLASTIN TIME 35.2 secs (24.9-33.3); PLATELET ESTIMATE, MANUAL NORMAL (130-450,000) (NORMAL); PLATELET MORPHOLOGY NORMAL APPEARANCE (NORMAL); SLIDE REVIEW? Indicated
--- NOTE | 2022-11-08 17:19 | PROVIDER PROGRESS NOTE ---
Assessment/Plan - Problem List (1) Abdominal pain Qualifiers: Abdominal location: generalized Qualified Code(s): R10.84 - Generalized abdominal pain Assessment/Plan: Secondary to alcoholic cirrhosis with ascites. Patient had paracentesis 3600 mils removed and October 25, 2022. Patient is on Rocephin and Flagyl per admitting physician. -Pain control n.p.o. fluid restriction Continue with home medications of Lasix spironolactone and lactulose (2) GIB (gastrointestinal bleeding) Assessment/Plan: Patient did vomit some blood. Patient was scoped recent visit and was not found to have any bleeding esophageal varices on October 23. EGD showed gastric erosion nonbleeding esophageal varices. Patient was initiated on octreotide Protonix in the emergency room and this was continued. Hemoglobin hematocrit every 6 hours ordered at admission. (3) Alcohol withdrawal Qualifiers: Complication of substance-induced condition: uncomplicated Qualified Cod e(s): F10.930 - Alcohol use, unspecified with withdrawal, uncomplicated Assessment/Plan: Placed on CINC protocol. - Current Meds Current Meds: Current Medications Generic Name Dose Route Start Last Admin Trade Name Freq PRN Reason Stop Dose Admin Furosemide 20 mg 11/08/22 09:00 11/08/22 09:34 Furosemide 20 Mg Tablet PO 20 mg DAILY MILTON Administration Hydromorphone HCl 0.5 mg 11/07/22 23:12 11/08/22 13:43 Hydromorphone 0.5 Mg/0.5 Ml Syringe IVP 0.5 mg Q4H PRN Administration Pain 8 to 10 Ceftriaxone Sodium 2 gm/ 100 mls @ 200 mls/hr 11/08/22 09:00 11/08/22 10:30 Sodium Chloride IV Infused DAILY MILTON Infusion Metronidazole 500 mg in 100 mls @ 100 mls/hr 11/07/22 23:45 11/08/22 16:27 Flagyl 500 Mg/100 Ml IV 100 mls/hr Q8H MILTON Administration Octreotide Acetate 500 mcg/ 100 mls @ 10 mls/hr 11/08/22 09:00 11/08/22 09:31 Sodium Chloride IV 50 mcg/hr Q10H MILTON 10 mls/hr Administration 50 MCG/HR Magnesium Oxide 400 mg 11/08/22 09:00 11/08/22 09:35 Magnesium Oxide 400 Mg Tablet PO 400 mg BID MILTON Administration Multivitamins 1 tab 11/08/22 09:00 11/08/22 09:35 Multivitamin Tablet PO 1 tab DAILY MIL[facility] Administration Nicotine 1 patch 11/08/22 09:00 11/08/22 09:34 Nicotine 14 Mg Patch TOP 1 patch DAILY MILTON Administration Ondansetron HCl 4 mg 11/07/22 23:12 11/08/22 01:30 Ondansetron Odt 4 Mg Tablet TL 4 mg Q6HR PRN Administration Nausea / Vomiting Ondansetron HCl 4 mg 11/07/22 23:12 11/08/22 13:46 Ondansetron 4 Mg/2 Ml Vial IVP 4 mg Q6HR PRN Administration Nausea / Vomiting Oxycodone HCl 5 mg 11/07/22 23:12 11/08/22 02:46 Oxycodone 5 Mg Tablet PO 5 mg Q4HR PRN Administration Pain 5 to 7 Pantoprazole Sodium 40 mg 11/08/22 09:00 11/08/22 09:34 Pantoprazole 40 Mg Vial IVP 40 mg BID MILTON Administration Potassium Chloride 30 meq 11/08/22 08:00 11/08/22 08:15 Potassium Chloride 10 Meq Capsule PO 30 meq BIDWM MILTON Administration Prochlorperazine Edisylate 10 mg 11/07/22 23:12 11/08/22 14:49 Prochlorperazine 10 Mg/2 Ml Vial IVP 10 mg Q6HR PRN Administration Nausea / Vomiting Sertraline HCl 50 mg 11/08/22 09:00 11/08/22 09:35 Sertraline 25 Mg Tablet PO 50 mg DAILY [facility] Administration Sodium Chloride 10 ml 11/08/22 01:00 11/08/22 09:38 Sodium Chloride Flush 0.9% 10 Ml Syringe IVP 10 ml 0100,0900,1700 MILTON Administration Spironolactone 25 mg 11/08/22 09:00 11/08/22 09:35 Spironolactone 25 Mg Tablet PO 25 mg DAILY MILTON Administration Thiamine HCl 100 mg 11/08/22 09:00 11/08/22 09:35 Thiamine 100 Mg Tablet PO 100 mg DAILY MILTON Administration - Lab Result Fish Bone Diagrams: 11/08/22 14:59 11/08/22 05:10 - Additional Planning My Orders: My Active Orders 11/08/22 13:23 Straight Catheter Insertion [RC] PRN 11/08/22 19:30 CBC - COMP BLD CT W/AUTO DIFF [HEME] Q6H 11/09/22 01:30 CBC - COMP BLD CT W/AUTO DIFF [HEME] Q6H 11/09/22 05:00 CBC - COMP BLD CT W/AUTO DIFF [HEME] DAILYLAB 11/09/22 07:30 CBC - COMP BLD CT W/AUTO DIFF [HEME] Q6H 11/10/22 05:00 CBC - COMP BLD CT W/AUTO DIFF [HEME] DAILYLAB 11/11/22 05:00 CBC - COMP BLD CT W/AUTO DIFF [HEME] DAILYLAB 11/12/22 05:00 CBC - COMP BLD CT W/AUTO DIFF [HEME] DAILYLAB 11/13/22 05:00 CBC - COMP BLD CT W/AUTO DIFF [HEME] DAILYLAB Subjective - Subjective Patient Reports: Other (Somewhat restless) Objective Vital Signs: Vital Signs - 24 hr 11/07/22 11/07/22 11/07/22 21:01 21:26 23:26 Temperature 36.5 C 36.2 C L Heart Rate 125 H 129 H 127 H Heart Rate [ Apical] Heart Rate [ Monitoring electrodes] Respiratory 18 16 18 Rate Blood Pressure 114/50 L 114/50 L 115/79 Blood Pressure [Right Brachial artery] O2 Saturation 94 96 96 If not protocol 2 : Oxygen Flow, liters/minute 11/07/22 11/07/22 11/07/22 23:42 23:47 23:52 Temperature 36.2 C L Heart Rate 128 H 126 H Heart Rate [ 128 H Apical] Heart Rate [ Monitoring electrodes] Respiratory 16 18 16 Rate Blood Pressure 118/75 122/77 Blood Pressure 117/79 [Right Brachial artery] O2 Saturation 94 97 97 If not protocol 2 2 2 : Oxygen Flow, liters/minute 11/07/22 11/08/22 11/08/22 23:59 00:00 00:30 Temperature 36.1 C L 36.1 C L 36.6 C Heart Rate 128 H 122 H Heart Rate [ 127 H Apical] Heart Rate [ Monitoring electrodes] Respiratory 16 16 16 Rate Blood Pressure 116/91 H 104/56 L Blood Pressure 116/91 H [Right Brachial artery] O2 Saturation 98 97 98 If not protocol 2 2 2 : Oxygen Flow, liters/minute 11/08/22 11/08/22 11/08/22 01:00 01:27 01:30 Temperature 36 C L Heart Rate 118 H 132 H Heart Rate [ Apical] Heart Rate [ Monitoring electrodes] Respiratory 16 16 Rate Blood Pressure 101/46 L 108/71 Blood Pressure [Right Brachial artery] O2 Saturation 96 94 If not protocol 2 2 : Oxygen Flow, liters/minute 11/08/22 11/08/22 11/08/22 02:00 02:30 02:56 Temperature 37.0 C Heart Rate 128 H 135 H Heart Rate [ 135 H Apical] Heart Rate [ Monitoring electrodes] Respiratory 24 16 16 Rate Blood Pressure 120/53 L 130/99 H Blood Pressure 128/85 H [Right Brachial artery] O2 Saturation 94 97 96 If not protocol 4 3 3 : Oxygen Flow, liters/minute 11/08/22 11/08/22 11/08/22 03:39 04:00 05:00 Temperature 36.3 C L Heart Rate 139 H 120 H Heart Rate [ 123 H Apical] Heart Rate [ Monitoring electrodes] Respiratory 18 18 16 Rate Blood Pressure 126/75 126/83 H Blood Pressure 138/81 H [Right Brachial artery] O2 Saturation 98 88 L 95 If not protocol 3 3 : Oxygen Flow, liters/minute 11/08/22 11/08/22 11/08/22 07:26 09:00 11:00 Temperature 36.5 C Heart Rate 112 H 119 H 128 H Heart Rate [ Apical] Heart Rate [ Monitoring electrodes] Respiratory 26 H 15 16 Rate Blood Pressure 103/75 119/62 113/94 H Blood Pressure [Right Brachial artery] O2 Saturation 95 98 98 If not protocol 2 3 : Oxygen Flow, liters/minute 11/08/22 11/08/22 11/08/22 11:53 12:00 13:00 Temperature Heart Rate 128 H 121 H 155 H Heart Rate [ Apical] Heart Rate [ Monitoring electrodes] Respiratory 20 22 24 Rate Blood Pressure 111/71 116/74 120/77 Blood Pressure [Right Brachial artery] O2 Saturation 98 90 L If not protocol 4 : Oxygen Flow, liters/minute 11/08/22 11/08/22 15:00 16:00 Temperature Heart Rate Heart Rate [ 122 H Apical] Heart Rate [ 120 H Monitoring electrodes] Respiratory 13 11 L Rate Blood Pressure Blood Pressure 122/71 101/57 L [Right Brachial artery] O2 Saturation 93 96 If not protocol 4 4 : Oxygen Flow, liters/minute Oxygen O2 Source Nasal cannula I&O (Last 24 Hrs): Intake and Output Totals x24h 11/06/22 11/07/22 11/08/22 23:59 23:59 23:59 Intake Total 100 760 Output Total 0 Balance 100 760 General: Alert Neuro: Alert, Other (Restless nonfocal) Cardiovascular: Regular rate Respiratory: No respiratory distress Abdomen: Other (Large abdomen with ascites present no tenderness to palpation transfer text) - Results Results: Laboratory Results WBC 18.5 x10^3/uL (4.8-10.8) H 11/08/22 14:59 RBC 2.49 10^6/uL (4.70-6.10) L 11/08/22 14:59 Hgb 8.0 g/dL (14.0-18.0) L 11/08/22 14:59 Hct 24.6 % (42.0-52.0) L 11/08/22 14:59 MCV 98.8 fL (80.0-94.0) H 11/08/22 14:59 MCH 32.1 pg (27.0-31.0) H 11/08/22 14:59 MCHC 32.5 g/dL (32.0-36.0) 11/08/22 14:59 RDW 21.6 % (12.0-15.0) H 11/08/22 14:59 Plt Count 175 10^3/uL (130-450) 11/08/22 14:59 MPV 10.4 fL (7.4-11.4) 11/08/22 14:59 Neut # (Auto) 15.0 10^3/uL (1.5-6.6) H 11/08/22 14:59 Lymph # (Auto) 1.8 10^3/uL (1.5-3.5) 11/08/22 14:59 [place] # (Auto) 1.1 10^3/uL (0.0-1.0) H 11/08/22 14:59 Eos # (Auto) 0.4 10^3/uL (0.0-0.7) 11/08/22 14:59 Baso # (Auto) 0.1 10^3/uL (0.0-0.1) 11/08/22 14:59 Absolute Nucleated RBC 0.00 x10^3/uL 11/08/22 14:59 Total Counted 100 11/08/22 05:10 Band Neuts % (Manual) 3 % (0-10) 11/08/22 05:10 Abnorm Lymph % (Manual) 0 % 11/08/22 05:10 Nucleated RBC % 0.0 /100WBC 11/08/22 14:59 Neutrophils # (Manual) 14.6 10^3/uL (1.5-6.6) H 11/08/22 05:10 Lymphocytes # (Manual) 2.6 10^3/uL (1.5-3.5) 11/08/22 05:10 Monocytes # (Manual) 2.6 10^3/uL (0.0-1.0) H 11/08/22 05:10 Eosinophils # (Manual) 0.0 10^3/uL (0-0.7) 11/08/22 05:10 Basophils # (Manual) 0.0 10^3/uL (0-0.1) 11/08/22 05:10 Differential Comment MANUAL DIFFERENTIAL 11/08/22 05:10 Manual Slide Review Indicated 11/08/22 14:59 Platelet Estimate NORMAL (130-450,000) (NORMAL) 11/08/22 14:59 Platelet Morphology NORMAL APPEARANCE (NORMAL) 11/08/22 14:59 RBC Morph Micro Appear 3+ ANISOCYTOSIS (NORMAL) 1+ POLYCHROMASIA (NORMAL) 1+ SCHISTOCYTES (NORMAL) 11/08/22 14:59 RBC Morph Micro Appear 3+ ANISOCYTOSIS (NORMAL) 1+ POLYCHROMASIA (NORMAL) 1+ SCHISTOCYTES (NORMAL) 11/08/22 14:59 RBC Morph Micro Appear 3+ ANISOCYTOSIS (NORMAL) 1+ POLYCHROMASIA (NORMAL) 1+ SCHISTOCYTES (NORMAL) 11/08/22 14:59 PT 16.9 secs (9.9-12.6) H 11/08/22 14:59 INR 1.6 (0.8-1.2) H 11/08/22 14:59 APTT 35.2 secs (24.9-33.3) H 11/08/22 14:59 Sodium 135 mmol/L (135-145) 11/08/22 05:10 Potassium 4.4 mmol/L (3.5-4.5) 11/08/22 05:10 Chloride 102 mmol/L (101-111) 11/08/22 05:10 Carbon Dioxide 25 mmol/L (21-32) 11/08/22 05:10 Anion Gap 8.0 (6-13) 11/08/22 05:10 BUN 9 mg/dL (6-20) 11/08/22 05:10 Creatinine 0.5 mg/dL (0.6-1.3) L 11/08/22 05:10 Estimated GFR (MDRD) 194 (>89) 11/08/22 05:10 Glucose 171 mg/dL (74-104) H 11/08/22 05:10 Calcium 7.7 mg/dL (8.5-10.3) L 11/08/22 05:10 Magnesium 1.2 mg/dL (1.7-2.3) L 11/08/22 05:10 Total Bilirubin 4.0 mg/dL (0.2-1.0) H 11/08/22 05:10 AST 64 IU/L (10-42) H 11/08/22 05:10 ALT 23 IU/L (10-60) 11/08/22 05:10 Alkaline Phosphatase 162 IU/L (42-121) H 11/08/22 05:10 Total Protein 5.1 g/dL (6.4-8.9) L 11/08/22 05:10 Albumin 2.3 g/dL (3.2-5.5) L 11/08/22 05:10 Globulin 2.8 g/dL (2.1-4.2) 11/08/22 05:10 Albumin/Globulin Ratio 0.8 (1.0-2.2) L 11/08/22 05:10 Lipase 38 U/L (22-51) 11/07/22 21:32 Nasal Screen MRSA (PCR) NEGATIVE (NEGATIVE) 11/08/22 14:32 Ethyl Alcohol 81.3 mg/dL 11/07/22 21:32 Blood Type O POSITIVE 11/07/22 21:32 Antibody Screen NEGATIVE 11/07/22 21:32 Crossmatch IS Only See Detail 11/07/22 21:32 - Procedures Procedures: Procedures CLOSURE SKIN & SUBCUTANEOUS NEC (11/17/12) DRAINAGE OF PERITONEAL CAVITY, PERCUTANEOUS APPROACH (10/23/22) DRAINAGE OF PERITONEAL CAVITY, PERCUTANEOUS APPROACH, DIAGN (10/23/22) INSPECTION OF UPPER INTESTINAL TRACT, ENDO (10/23/22) TRANSFUSE NONAUT RED BLOOD CELLS IN PERIPH VEIN, PERC (10/23/22) ABX Reporting Has patient been on IV antibiotics over the past 48 hours?: No
[2022-11-08 18:01] LABS: MAGNESIUM 1.3 mg/dL (1.7-2.3); PHOSPHORUS 3.7 mg/dL (3.7-7.2); POTASSIUM 4.2 mmol/L (3.5-4.5)
[2022-11-08] MEDS ORDERED: MAGNESIUM SULFATE 2 GRAM 2 GM/50 ML BAG IV ONE (18:26)
[2022-11-08 19:11] LABS: BASOPHILS # (AUTO) 0.1 10^3/uL (0.0-0.1); BASOPHILS % (AUTO) 0.7 %; EOSINOPHILS # (AUTO) 0.5 10^3/uL (0.0-0.7); EOSINOPHILS % (AUTO) 2.6 %; HCT - HEMATOCRIT 23.5 % (42.0-52.0); HGB - HEMOGLOBIN 7.6 g/dL (14.0-18.0); LYMPHOCYTES # (AUTO) 1.6 10^3/uL (1.5-3.5); LYMPHOCYTES % (AUTO) 9.1 %; MEAN CORPUSCULAR HEMOGLOBIN 31.9 pg (27.0-31.0); MEAN CORPUSCULAR HGB CONC 32.3 g/dL (32.0-36.0); MEAN CORPUSCULAR VOLUME 98.7 fL (80.0-94.0); MEAN PLATELET VOLUME 10.4 fL (7.4-11.4); MONOCYTES # (AUTO) 1.1 10^3/uL (0.0-1.0); MONOCYTES % (AUTO) 6.3 %; NEUTROPHILS # (AUTO) 14.5 10^3/uL (1.5-6.6); NEUTROPHILS % (AUTO) 80.9 %; PLT - PLATELET COUNT 172 10^3/uL (130-450); RED BLOOD COUNT 2.38 10^6/uL (4.70-6.10); RED CELL DISTRIBUTION WIDTH 21.8 % (12.0-15.0); WHITE BLOOD COUNT 17.9 x10^3/uL (4.8-10.8)
[2022-11-08 19:13] LABS: CALCIUM, IONIZED 1.07 mmol/L (1.15-1.33); VBG PH 7.46 (7.31-7.41)
--- NOTE | 2022-11-08 19:26 | XRAY Report ---
PROCEDURE: Ribs w/PA Chest RT INDICATIONS: pain TECHNIQUE: 4 views of the right ribs were acquired, along with a single view chest. COMPARISON: Chest film dated 10/22/2022 FINDINGS: Surgical changes and devices: None. Bones and chest wall: No fractures or dislocations. No suspicious bony lesions. Overlying soft tis sues appear unremarkable. Lungs and pleura: No pleural effusions or pneumothorax. Lungs appear clear. Mediastinum: Mediastinal contours appear normal. Heart size is normal. IMPRESSION: No displaced rib fracture or pneumothorax. Reviewed by: Elie Yañez MD on 11/08/2022 7:25 PM PDT Approved by: Elie Yañez MD on 11/08/2022 7:25 PM PDT Station ID: [id number]
[2022-11-08] MEDS: HYDROmorphone 1 MG/ML CARPUJECT IVP PRN ×2 (20:00→22:49)
[2022-11-08] MEDS: SODIUM CHLORIDE FLUSH 0.9% 10 ML SYRINGE IVP PRN ×2 (20:00→20:04)
[2022-11-09 00:37] LABS: BASOPHILS # (AUTO) 0.1 10^3/uL (0.0-0.1); BASOPHILS % (AUTO) 0.6 %; EOSINOPHILS # (AUTO) 0.5 10^3/uL (0.0-0.7); HCT - HEMATOCRIT 21.8 % (42.0-52.0); HGB - HEMOGLOBIN 7.1 g/dL (14.0-18.0); LYMPHOCYTES # (AUTO) 1.6 10^3/uL (1.5-3.5); LYMPHOCYTES % (AUTO) 9.4 %; MEAN CORPUSCULAR HEMOGLOBIN 32.7 pg (27.0-31.0); MEAN CORPUSCULAR HGB CONC 32.6 g/dL (32.0-36.0); MEAN CORPUSCULAR VOLUME 100.5 fL (80.0-94.0); MEAN PLATELET VOLUME 10.8 fL (7.4-11.4); NEUTROPHILS # (AUTO) 13.4 10^3/uL (1.5-6.6); NEUTROPHILS % (AUTO) 80.6 %; PLT - PLATELET COUNT 159 10^3/uL (130-450); RED BLOOD COUNT 2.17 10^6/uL (4.70-6.10); RED CELL DISTRIBUTION WIDTH 21.5 % (12.0-15.0); WHITE BLOOD COUNT 16.6 x10^3/uL (4.8-10.8)
[2022-11-09 01:11] LABS: SLIDE REVIEW? Indicated
[2022-11-09 01:35] LABS: PLATELET ESTIMATE, MANUAL NORMAL (130-450,000) (NORMAL)
[2022-11-09] MEDS: PROCHLORPERAZINE 10 MG/2 ML VIAL IVP PRN ×3 (03:33→17:51)
[2022-11-09] MEDS: SODIUM CHLORIDE FLUSH 0.9% 10 ML SYRINGE IVP PRN ×5 (03:33→17:53)
[2022-11-09] MEDS: HYDROmorphone 1 MG/ML CARPUJECT IVP PRN ×6 (03:33→22:23)
[2022-11-09] MEDS: OCTREOTIDE 500 MCG in SODIUM CHLORIDE 0.9% 100ML 99 ML IV SCH (05:41)
[2022-11-09 06:12] LABS: CALCIUM, IONIZED 1.09 mmol/L (1.15-1.33); VBG PH 7.445 (7.31-7.41)
[2022-11-09 06:13] LABS: BASOPHILS # (AUTO) 0.1 10^3/uL (0.0-0.1); BASOPHILS % (AUTO) 0.9 %; EOSINOPHILS # (AUTO) 0.5 10^3/uL (0.0-0.7); EOSINOPHILS % (AUTO) 3.6 %; HCT - HEMATOCRIT 21.8 % (42.0-52.0); LYMPHOCYTES # (AUTO) 1.5 10^3/uL (1.5-3.5); LYMPHOCYTES % (AUTO) 10.1 %; MEAN CORPUSCULAR HEMOGLOBIN 32.4 pg (27.0-31.0); MEAN CORPUSCULAR HGB CONC 32.1 g/dL (32.0-36.0); MEAN CORPUSCULAR VOLUME 100.9 fL (80.0-94.0); MEAN PLATELET VOLUME 10.1 fL (7.4-11.4); MONOCYTES % (AUTO) 6.8 %; NEUTROPHILS # (AUTO) 11.9 10^3/uL (1.5-6.6); NEUTROPHILS % (AUTO) 78.3 %; PLT - PLATELET COUNT 154 10^3/uL (130-450); RED BLOOD COUNT 2.16 10^6/uL (4.70-6.10); RED CELL DISTRIBUTION WIDTH 21.6 % (12.0-15.0); WHITE BLOOD COUNT 15.2 x10^3/uL (4.8-10.8)
[2022-11-09 06:19] LABS: SLIDE REVIEW? Indicated
[2022-11-09] MEDS ORDERED: CALCIUM GLUC 1,000MG/50ML-NACL 1,000 MG/50 ML BAG IV ONE ×2 (06:21→18:07)
[2022-11-09 06:26] LABS: MAGNESIUM 1.5 mg/dL (1.7-2.3); PHOSPHORUS 4.1 mg/dL (3.7-7.2)
[2022-11-09 06:56] LABS: PLATELET ESTIMATE, MANUAL NORMAL (130-450,000) (NORMAL)
[2022-11-09] MEDS ORDERED: MAGNESIUM SULFATE 2 GRAM 2 GM/50 ML BAG IV ONE ×2 (08:00→18:07)
[2022-11-09] MEDS: SODIUM CHLORIDE FLUSH 0.9% 10 ML SYRINGE IVP SCH ×2 (08:02→15:58)
[2022-11-09] MEDS: metroNIDAZOLE 500 MG/100 ML 500 MG/100 ML BAG IV SCH ×3 (08:05→23:18)
[2022-11-09] MEDS: cefTRIAXone 2 GM in SODIUM CHLORIDE 0.9% MINIBAG 100 ML IV SCH (10:25)
[2022-11-09] MEDS: PANTOPRAZOLE 40 MG VIAL IVP SCH ×2 (10:29→20:55)
[2022-11-09] MEDS: SERTRALINE 25 MG TABLET PO SCH (10:36)
[2022-11-09] MEDS: MULTIVITAMIN TABLET PO SCH (10:36)
[2022-11-09] MEDS: NICOTINE 14 MG PATCH TOP SCH (10:37)
[2022-11-09] MEDS: FUROSEMIDE 20 MG TABLET PO SCH (10:37)
[2022-11-09] MEDS: THIAMINE 100 MG TABLET PO SCH (10:37)
[2022-11-09] MEDS: SPIRONOLACTONE 25 MG TABLET PO SCH (10:37)
[2022-11-09 16:24] LABS: CALCIUM, IONIZED 1.05 mmol/L (1.15-1.33); VBG PH 7.382 (7.31-7.41)
--- NOTE | 2022-11-09 17:09 | PROVIDER PROGRESS NOTE ---
Assessment/Plan - Problem List (1) Abdominal pain Qualifiers: Abdominal location: generalized Qualified Code(s): R10.84 - Generalized abdominal pain Assessment/Plan: 1) Abdominal pain Qualifiers: Abdominal location: generalized Qualified Code(s): R10.84 - Generalized abdominal pain Assessment/Plan: Secondary to alcoholic cirrhosis with ascites. Patient had paracentesis 3600 mils removed and October 25, 2022. Patient is on Rocephin and Flagyl per admitting physician. -Pain control n.p.o. fluid restriction Continue with home medications of Lasix spironolactone and lactu -Therapeutic paracentesis when radiology is available (2) GIB (gastrointestinal bleeding) Assessment/Plan: Patient did vomit some blood. Patient was scoped recent visit and was not found to have any bleeding esophageal varices on October 23. EGD showed gastric erosion nonbleeding esophageal varices. Patient was initiated on octreotide Protonix in the emergency room and this was continued. Hemoglobin hematocrit every 6 hours ordered at admission. November 09-there is no evidence of any active bleeding however patient's hemoglobin did go below 7 and was transfused 1 unit of PRBCs and will monitor (3) Alcohol withdrawal Qualifiers: Complication of substance-induced condition: uncomplicated Qualified Code(s): F10.930 - Alcohol use, unspecified with withdrawal, uncomplicated Assessment/Plan: Placed on CIWA protocol. (3) Alcohol withdrawal Qualifiers: Complication of substance-induced condition: uncomplicated Qualified Code(s): F10.930 - Alcohol use, unspecified with withdrawal, uncomplicated - Current Meds Current Meds: Current Medications Generic Name Dose Route Start Last Admin Trade Name Ahsanq PRN Reason Stop Dose Admin Furosemide 20 mg 11/08/22 09:00 11/09/22 10:37 Furosemide 20 Mg Tablet PO 20 mg DAILY [facility] Administration Hydromorphone HCl 1 mg 11/08/22 17:49 11/09/22 12:56 Hydromorphone 1 Mg/Ml Carpuject IVP 1 mg Q2H PRN Administration Pain 8 to 10 Ceftriaxone Sodium 2 gm/ 100 mls @ 200 mls/hr 11/08/22 09:00 11/09/22 10:55 Sodium Chloride IV Infused DAILY [facility] Infusion Metronidazole 500 mg in 100 mls @ 100 mls/hr 11/07/22 23:45 11/09/22 15:50 Flagyl 500 Mg/100 Ml IV 100 mls/hr Q8H MILTON Administration Multivitamins 1 tab 11/08/22 09:00 11/09/22 10:36 Multivitamin Tablet PO 1 tab DAILY [facility] Administration Nicotine 1 patch 11/08/22 09:00 11/09/22 10:37 Nicotine 14 Mg Patch TOP 1 patch DAILY MIL[facility] Administration Ondansetron HCl 4 mg 11/07/22 23:12 11/08/22 01:30 Ondansetron Odt 4 Mg Tablet TL 4 mg Q6HR PRN Administration Nausea / Vomiting Ondansetron HCl 4 mg 11/07/22 23:12 11/08/22 13:46 Ondansetron 4 Mg/2 Ml Vial IVP 4 mg Q6HR PRN Administration Nausea / Vomiting Oxycodone HCl 5 mg 11/07/22 23:12 11/08/22 02:46 Oxycodone 5 Mg Tablet PO 5 mg Q4HR PRN Administration Pain 5 to 7 Pantoprazole Sodium 40 mg 11/08/22 09:00 11/09/22 10:29 Pantoprazole 40 Mg Vial IVP 40 mg BID MILTON Administration Prochlorperazine Edisylate 10 mg 11/07/22 23:12 11/09/22 09:18 Prochlorperazine 10 Mg/2 Ml Vial IVP 10 mg Q6HR PRN Administration Nausea / Vomiting Sertraline HCl 50 mg 11/08/22 09:00 11/09/22 10:36 Sertraline 25 Mg Tablet PO 50 mg DAILY [facility] Administration Sodium Chloride 10 ml 11/08/22 01:00 11/09/22 15:58 Sodium Chloride Flush 0.9% 10 Ml Syringe IVP 10 ml 0100,0900,1700 MILTON Administration Sodium Chloride 10 ml 11/07/22 23:12 11/09/22 11:48 Sodium Chloride Flush 0.9% 10 Ml Syringe IVP 10 ml PRN PRN Administration NEEDED PER PROVIDER ORDERS Spironolactone 25 mg 11/08/22 09:00 11/09/22 10:37 Spironolactone 25 Mg Tablet PO 25 mg DAILY [facility] Administration Thiamine HCl 100 mg 11/08/22 09:00 11/09/22 10:37 Thiamine 100 Mg Tablet PO 100 mg DAILY MILTON Administration - Lab Result Fish Bone Diagrams: 11/09/22 12:09 11/09/22 06:06 - Additional Planning My Orders: My Active Orders 11/08/22 17:49 HYDROmorphone 1MG CARP [Dilaudid 1Mg Carp] 1 mg IVP Q2H PRN 11/09/22 Lunch Low Sodium Diet [DIET] 11/09/22 12:28 Transfuse RBCs Leukoreduced [RC] .ONCE 11/09/22 17:30 HGB - HEMOGLOBIN [HEME] Timed 11/09/22 23:00 HGB - HEMOGLOBIN [HEME] Timed 11/10/22 05:00 CBC - COMP BLD CT W/AUTO DIFF [HEME] DAILYLAB 11/11/22 05:00 CBC - COMP BLD CT W/AUTO DIFF [HEME] DAILYLAB 11/12/22 05:00 CBC - COMP BLD CT W/AUTO DIFF [HEME] DAILYLAB 11/13/22 05:00 CBC - COMP BLD CT W/AUTO DIFF [HEME] DAILYLAB Subjective - Subjective Patient Reports: Other (No new complaints but is concerned regarding recurrence of ascites.) Objective Vital Signs: Vital Signs - 24 hr 11/08/22 11/08/22 11/08/22 18:00 19:00 20:00 Temperature 36.8 C Heart Rate [ 128 H 128 H 127 H Monitoring electrodes] Respiratory 12 9 L 16 Rate Blood Pressure 119/60 121/68 130/88 H [Right Brachial artery] O2 Saturation 92 94 96 If not protocol 4 4 4 : Oxygen Flow, liters/minute 11/08/22 11/08/22 11/08/22 21:00 22:00 23:00 Temperature Heart Rate [ 124 H 121 H 117 H Monitoring electrodes] Respiratory 97 H 11 L 16 Rate Blood Pressure 118/75 119/66 117/65 [Right Brachial artery] O2 Saturation 97 92 93 If not protocol 4 2 2 : Oxygen Flow, liters/minute 11/09/22 11/09/22 11/09/22 00:00 01:00 02:00 Temperature Heart Rate [ 115 H 114 H 115 H Monitoring electrodes] Respiratory 18 17 17 Rate Blood Pressure 120/55 L 127/71 111/79 [Right Brachial artery] O2 Saturation 95 95 97 If not protocol 2 2 2 : Oxygen Flow, liters/minute 11/09/22 11/09/22 11/09/22 03:00 04:00 04:04 Temperature 36.7 C Heart Rate [ 114 H 115 H 119 H Monitoring electrodes] Respiratory 12 13 15 Rate Blood Pressure 119/70 105/64 105/64 [Right Brachial artery] O2 Saturation 98 95 94 If not protocol 2 2 2 : Oxygen Flow, liters/minute 11/09/22 11/09/22 11/09/22 05:00 06:00 07:00 Temperature Heart Rate [ 117 H 116 H 116 H Monitoring electrodes] Respiratory 17 17 18 Rate Blood Pressure 114/67 115/74 103/69 [Right Brachial artery] O2 Saturation 95 95 93 If not protocol 2 2 2 : Oxygen Flow, liters/minute 11/09/22 11/09/22 11/09/22 08:47 09:00 10:00 Temperature 36.9 C Heart Rate [ 116 H 114 H Monitoring electrodes] Respiratory 12 14 Rate Blood Pressure 105/73 139/89 H [Right Brachial artery] O2 Saturation 93 93 If not protocol 4 2 2 : Oxygen Flow, liters/minute 11/09/22 11/09/22 11/09/22 11:00 12:00 13:00 Temperature Heart Rate [ 113 H 111 H 111 H Monitoring electrodes] Respiratory 15 13 13 Rate Blood Pressure 113/63 131/66 H 131/66 H [Right Brachial artery] O2 Saturation 93 92 92 If not protocol 2 2 2 : Oxygen Flow, liters/minute 11/09/22 11/09/22 11/09/22 14:00 14:09 14:30 Temperature 36.9 C 36.9 C 36.6 C Heart Rate [ 115 H 114 H 110 H Monitoring electrodes] Respiratory 13 10 L 11 L Rate Blood Pressure 118/53 L 118/53 L 115/68 [Right Brachial artery] O2 Saturation 93 93 93 If not protocol 2 2 2 : Oxygen Flow, liters/minute 11/09/22 11/09/22 15:00 16:00 Temperature Heart Rate [ 107 H 108 H Monitoring electrodes] Respiratory 12 17 Rate Blood Pressure 116/74 107/64 [Right Brachial artery] O2 Saturation 93 93 If not protocol 2 2 : Oxygen Flow, liters/minute Oxygen O2 Source Nasal cannula I&O (Last 24 Hrs): Intake and Output Totals x24h 11/07/22 11/08/22 11/09/22 23:59 23:59 23:59 Intake Total 100 1060 1421.667 Output Total 275 Balance 581 665 5717.667 General: Alert, Oriented x3, Cooperative HEENT: Atraumatic Neck: Supple Neuro: Alert, Non Focal Cardiovascular: Regular rate Respiratory: Breath sounds nml Abdomen: No tenderness, Other (Recurrent abdominal ascites secondary to cirrhosis) Extremities: No clubbing, Other (1+ lower extremity pedal edema) Skin: No rashes - Results Results: Laboratory Results WBC 15.2 x10^3/uL (4.8-10.8) H 11/09/22 06:06 RBC 2.16 10^6/uL (4.70-6.10) L 11/09/22 06:06 Hgb 6.7 g/dL (14.0-18.0) L* 11/09/22 12:09 Hct 21.8 % (42.0-52.0) L 11/09/22 06:06 MCV 100.9 fL (80.0-94.0) H 11/09/22 06:06 MCH 32.4 pg (27.0-31.0) H 11/09/22 06:06 MCHC 32.1 g/dL (32.0-36.0) 11/09/22 06:06 RDW 21.6 % (12.0-15.0) H 11/09/22 06:06 Plt Count 154 10^3/uL (130-450) 11/09/22 06:06 MPV 10.1 fL (7.4-11.4) 11/09/22 06:06 Neut # (Auto) 11.9 10^3/uL (1.5-6.6) H 11/09/22 06:06 Lymph # (Auto) 1.5 10^3/uL (1.5-3.5) 11/09/22 06:06 [place] # (Auto) 1.0 10^3/uL (0.0-1.0) 11/09/22 06:06 Eos # (Auto) 0.5 10^3/uL (0.0-0.7) 11/09/22 06:06 Baso # (Auto) 0.1 10^3/uL (0.0-0.1) 11/09/22 06:06 Absolute Nucleated RBC 0.00 x10^3/uL 11/09/22 06:06 Total Counted 100 11/08/22 05:10 Band Neuts % (Manual) 3 % (0-10) 11/08/22 05:10 Abnorm Lymph % (Manual) 0 % 11/08/22 05:10 Nucleated RBC % 0.0 /100WBC 11/09/22 06:06 Neutrophils # (Manual) 14.6 10^3/uL (1.5-6.6) H 11/08/22 05:10 Lymphocytes # (Manual) 2.6 10^3/uL (1.5-3.5) 11/08/22 05:10 Monocytes # (Manual) 2.6 10^3/uL (0.0-1.0) H 11/08/22 05:10 Eosinophils # (Manual) 0.0 10^3/uL (0-0.7) 11/08/22 05:10 Basophils # (Manual) 0.0 10^3/uL (0-0.1) 11/08/22 05:10 Differential Comment MANUAL DIFFERENTIAL 11/08/22 05:10 Manual Slide Review Indicated 11/09/22 06:06 Platelet Estimate NORMAL (130-450,000) (NORMAL) 11/09/22 06:06 Platelet Morphology NORMAL APPEARANCE (NORMAL) 11/08/22 14:59 RBC Morph Micro Appear 1+ ANISOCYTOSIS (NORMAL) 1+ MACROCYTOSIS (NORMAL) 1+ HYPOCHROMASIA (NORMAL) 1+ OVALOCYTES (NORMAL) 1+ TARGET CELLS (NORMAL) 11/09/22 06:06 RBC Morph Micro Appear 1+ ANISOCYTOSIS (NORMAL) 1+ MACROCYTOSIS (NORMAL) 1+ HYPOCHROMASIA (NORMAL) 1+ OVALOCYTES (NORMAL) 1+ TARGET CELLS (NORMAL) 11/09/22 06:06 RBC Morph Micro Appear 1+ ANISOCYTOSIS (NORMAL) 1+ MACROCYTOSIS (NORMAL) 1+ HYPOCHROMASIA (NORMAL) 1+ OVALOCYTES (NORMAL) 1+ TARGET CELLS (NORMAL) 11/09/22 06:06 RBC Morph Micro Appear 1+ ANISOCYTOSIS (NORMAL) 1+ MACROCYTOSIS (NORMAL) 1+ HYPOCHROMASIA (NORMAL) 1+ OVALOCYTES (NORMAL) 1+ TARGET CELLS (NORMAL) 11/09/22 06:06 RBC Morph Micro Appear 1+ ANISOCYTOSIS (NORMAL) 1+ MACROCYTOSIS (NORMAL) 1+ HYPOCHROMASIA (NORMAL) 1+ OVALOCYTES (NORMAL) 1+ TARGET CELLS (NORMAL) 11/09/22 06:06 PT 16.9 secs (9.9-12.6) H 11/08/22 14:59 INR 1.6 (0.8-1.2) H 11/08/22 14:59 APTT 35.2 secs (24.9-33.3) H 11/08/22 14:59 VBG pH 7.382 (7.31-7.41) 11/09/22 16:15 Ionized Calcium 1.05 mmol/L (1.15-1.33) L 11/09/22 16:15 Sodium 135 mmol/L (135-145) 11/08/22 05:10 Potassium 4.0 mmol/L (3.5-4.5) 11/09/22 06:06 Chloride 102 mmol/L (101-111) 11/08/22 05:10 Carbon Dioxide 25 mmol/L (21-32) 11/08/22 05:10 Anion Gap 8.0 (6-13) 11/08/22 05:10 BUN 9 mg/dL (6-20) 11/08/22 05:10 Creatinine 0.5 mg/dL (0.6-1.3) L 11/08/22 05:10 Estimated GFR (MDRD) 194 (>89) 11/08/22 05:10 Glucose 171 mg/dL (74-104) H 11/08/22 05:10 Calcium 7.7 mg/dL (8.5-10.3) L 11/08/22 05:10 Phosphorus 4.1 mg/dL (3.7-7.2) 11/09/22 06:06 Magnesium 1.6 mg/dL (1.7-2.3) L 11/09/22 16:15 Total Bilirubin 4.0 mg/dL (0.2-1.0) H 11/08/22 05:10 AST 64 IU/L (10-42) H 11/08/22 05:10 ALT 23 IU/L (10-60) 11/08/22 05:10 Alkaline Phosphatase 162 IU/L (42-121) H 11/08/22 05:10 Total Protein 5.1 g/dL (6.4-8.9) L 11/08/22 05:10 Albumin 2.3 g/dL (3.2-5.5) L 11/08/22 05:10 Globulin 2.8 g/dL (2.1-4.2) 11/08/22 05:10 Albumin/Globulin Ratio 0.8 (1.0-2.2) L 11/08/22 05:10 Lipase 38 U/L (22-51) 11/07/22 21:32 Nasal Screen MRSA (PCR) NEGATIVE (NEGATIVE) 11/08/22 14:32 Ethyl Alcohol 81.3 mg/dL 11/07/22 21:32 Blood Type O POSITIVE 11/07/22 21:32 Antibody Screen NEGATIVE 11/07/22 21:32 Crossmatch IS Only See Detail 11/07/22 21:32 - Procedures Procedures: Procedures CLOSURE SKIN & SUBCUTANEOUS NEC (11/17/12) DRAINAGE OF PERITONEAL CAVITY, PERCUTANEOUS APPROACH (10/23/22) DRAINAGE OF PERITONEAL CAVITY, PERCUTANEOUS APPROACH, DIAGN (10/23/22) INSPECTION OF UPPER INTESTINAL TRACT, ENDO (10/23/22) TRANSFUSE NONAUT RED BLOOD CELLS IN PERIPH VEIN, PERC (10/23/22) ABX Reporting Has patient been on IV antibiotics over the past 48 hours?: No
[2022-11-09] MEDS: ONDANSETRON 4 MG/2 ML VIAL IVP PRN (22:28)
[2022-11-09 23:38] LABS: CALCIUM, IONIZED 1.1 mmol/L (1.15-1.33); VBG PH 7.391 (7.31-7.41)
[2022-11-09 23:47] LABS: MAGNESIUM 1.8 mg/dL (1.7-2.3); POTASSIUM 3.6 mmol/L (3.5-4.5)
[2022-11-09] MEDS: oxyCODONE 5 MG TABLET PO PRN (23:47)
[2022-11-10] MEDS ORDERED: POTASSIUM CHLORIDE 20 MEQ TABLET PO ONE ×3 (00:01→12:00)
[2022-11-10] MEDS ORDERED: MAGNESIUM SULFATE 2 GRAM 2 GM/50 ML BAG IV ONE ×2 (00:01→23:15)
[2022-11-10] MEDS ORDERED: CALCIUM GLUC 1,000MG/50ML-NACL 1,000 MG/50 ML BAG IV ONE ×2 (00:04→05:26)
[2022-11-10] MEDS: SODIUM CHLORIDE FLUSH 0.9% 10 ML SYRINGE IVP SCH ×3 (02:02→18:20)
[2022-11-10] MEDS: HYDROmorphone 1 MG/ML CARPUJECT IVP PRN ×5 (04:44→22:13)
[2022-11-10 05:19] LABS: CALCIUM, IONIZED 1.08 mmol/L (1.15-1.33); VBG PH 7.441 (7.31-7.41)
[2022-11-10 05:20] LABS: BASOPHILS # (AUTO) 0.1 10^3/uL (0.0-0.1); BASOPHILS % (AUTO) 0.6 %; EOSINOPHILS # (AUTO) 0.5 10^3/uL (0.0-0.7); EOSINOPHILS % (AUTO) 3.8 %; HCT - HEMATOCRIT 22.8 % (42.0-52.0); HGB - HEMOGLOBIN 7.7 g/dL (14.0-18.0); LYMPHOCYTES # (AUTO) 1.5 10^3/uL (1.5-3.5); LYMPHOCYTES % (AUTO) 11.8 %; MEAN CORPUSCULAR HEMOGLOBIN 33.8 pg (27.0-31.0); MEAN CORPUSCULAR HGB CONC 33.8 g/dL (32.0-36.0); MEAN PLATELET VOLUME 11.1 fL (7.4-11.4); MONOCYTES # (AUTO) 0.8 10^3/uL (0.0-1.0); MONOCYTES % (AUTO) 6.7 %; NEUTROPHILS # (AUTO) 9.6 10^3/uL (1.5-6.6); NEUTROPHILS % (AUTO) 76.9 %; PLT - PLATELET COUNT 142 10^3/uL (130-450); RED BLOOD COUNT 2.28 10^6/uL (4.70-6.10); RED CELL DISTRIBUTION WIDTH 21.9 % (12.0-15.0); WHITE BLOOD COUNT 12.5 x10^3/uL (4.8-10.8)
[2022-11-10 05:22] LABS: SLIDE REVIEW? Indicated
[2022-11-10 05:32] LABS: MAGNESIUM 1.8 mg/dL (1.7-2.3); PHOSPHORUS 3.8 mg/dL (3.7-7.2); POTASSIUM 3.6 mmol/L (3.5-4.5)
[2022-11-10] MEDS: PROCHLORPERAZINE 10 MG/2 ML VIAL IVP PRN ×3 (05:33→22:13)
[2022-11-10] MEDS: oxyCODONE 5 MG TABLET PO PRN ×2 (05:34→12:53)
[2022-11-10 05:43] LABS: PLATELET ESTIMATE, MANUAL NORMAL (130-450,000) (NORMAL)
[2022-11-10] MEDS ORDERED: MAGNESIUM OXIDE 400 MG TABLET PO ONE (05:47)
[2022-11-10] MEDS: metroNIDAZOLE 500 MG/100 ML 500 MG/100 ML BAG IV SCH ×3 (08:03→23:50)
[2022-11-10] MEDS: PANTOPRAZOLE 40 MG VIAL IVP SCH (08:33)
[2022-11-10] MEDS: NICOTINE 14 MG PATCH TOP SCH (08:33)
[2022-11-10] MEDS: SERTRALINE 25 MG TABLET PO SCH (08:40)
[2022-11-10] MEDS: MULTIVITAMIN TABLET PO SCH (08:41)
[2022-11-10] MEDS: FUROSEMIDE 20 MG TABLET PO SCH (08:41)
[2022-11-10] MEDS: SPIRONOLACTONE 25 MG TABLET PO SCH (08:47)
[2022-11-10] MEDS: THIAMINE 100 MG TABLET PO SCH (09:30)
[2022-11-10] MEDS: cefTRIAXone 2 GM in SODIUM CHLORIDE 0.9% MINIBAG 100 ML IV SCH (09:55)
[2022-11-10 10:16] LABS: INR 1.8 (0.8-1.2)
[2022-11-10 10:20] LABS: CALCIUM, IONIZED 1.09 mmol/L (1.15-1.33); VBG PH 7.393 (7.31-7.41)
[2022-11-10 10:26] LABS: MAGNESIUM 1.7 mg/dL (1.7-2.3); PHOSPHORUS 3.7 mg/dL (3.7-7.2); POTASSIUM 3.6 mmol/L (3.5-4.5)
[2022-11-10 10:27] LABS: ALBUMIN 2.2 g/dL (3.2-5.5); ALBUMIN/GLOBULIN RATIO 0.8 (1.0-2.2); CALCIUM 7.8 mg/dL (8.5-10.3); CREATININE 0.5 mg/dL (0.6-1.3); POTASSIUM 3.6 mmol/L (3.5-4.5); TOTAL PROTEIN 4.9 g/dL (6.4-8.9)
[2022-11-10] MEDS: MAGNESIUM OXIDE 400 MG TABLET PO SCH ×2 (12:40→18:01)
[2022-11-10] MEDS: ONDANSETRON 4 MG/2 ML VIAL IVP PRN (12:53)
--- NOTE | 2022-11-10 13:41 | PROVIDER PROGRESS NOTE ---
Assessment/Plan - Problem List (1) Abdominal pain Qualifiers: Abdominal location: generalized Qualified Code(s): R10.84 - Generalized abdominal pain Assessment/Plan: 1) Abdominal pain Qualifiers: Abdominal location: generalized Qualified Code(s): R10.84 - Generalized abdominal pain Assessment/Plan: Secondary to alcoholic cirrhosis with ascites. Patient had paracentesis 3600 mils removed and October 25, 2022. Patient is on Rocephin and Flagyl per admitting physician. Continue with home medications of Lasix spironolactone and lactulose -Increased lasix to 40 mg po daily and spironolactone to 100 mg daily on 11/10 -Therapeutic paracentesis when radiology is available (2) GIB (gastrointestinal bleeding) Assessment/Plan: Patient did vomit some blood. Patient was scoped recent visit and was not found to have any bleeding esophageal varices on October 23. EGD showed gastric erosion nonbleeding esophageal varices. Patient was initiated on octreotide Protonix in the emergency room and this was continued. Hemoglobin hematocrit every 6 hours ordered at admission. November 09-there is no evidence of any active bleeding however patient's hemoglobin did go below 7 and was transfused 1 unit of PRBCs and will monitor (3) Alcohol withdrawal Qualifiers: Complication of substance-induced condition: uncomplicated Qualified Code(s): F10.930 - Alcohol use, unspecified with withdrawal, uncomplicated Assessment/Plan: Placed on CIWA protocol. No evidence of withdrawal this admit. ( (3) Alcohol withdrawal Qualifiers: Complication of substance-induced condition: uncomplicated Qualified Code(s): F10.930 - Alcohol use, unspecified with withdrawal, uncomplicated - Current Meds Current Meds: Current Medications Generic Name Dose Route Start Last Admin Trade Name Freq PRN Reason Stop Dose Admin Furosemide 40 mg 11/10/22 09:00 11/10/22 08:41 Furosemide 20 Mg Tablet PO 40 mg DAILY [facility] Administration Hydromorphone HCl 1 mg 11/08/22 17:49 11/10/22 13:14 Hydromorphone 1 Mg/Ml Carpuject IVP 1 mg Q2H PRN Administration Pain 8 to 10 Ceftriaxone Sodium 2 gm/ 100 mls @ 200 mls/hr 11/08/22 09:00 11/10/22 10:59 Sodium Chloride IV Infused DAILY [facility] Infusion Metronidazole 500 mg in 100 mls @ 100 mls/hr 11/07/22 23:45 11/10/22 09:15 Flagyl 500 Mg/100 Ml IV Infused Q8H [facility] Infusion Magnesium Oxide 400 mg 11/10/22 12:00 11/10/22 12:40 Magnesium Oxide 400 Mg Tablet PO 11/10/22 18:01 400 mg Q6H [facility] Administration Protocol Multivitamins 1 tab 11/08/22 09:00 11/10/22 08:41 Multivitamin Tablet PO 1 tab DAILY [facility] Administration Nicotine 1 patch 11/08/22 09:00 11/10/22 08:33 Nicotine 14 Mg Patch TOP 1 patch DAILY [facility] Administration Ondansetron HCl 4 mg 11/07/22 23:12 11/08/22 01:30 Ondansetron Odt 4 Mg Tablet TL 4 mg Q6HR PRN Administration Nausea / Vomiting Ondansetron HCl 4 mg 11/07/22 23:12 11/10/22 12:53 Ondansetron 4 Mg/2 Ml Vial IVP 4 mg Q6HR PRN Administration Nausea / Vomiting Oxycodone HCl 5 mg 11/07/22 23:12 11/10/22 12:53 Oxycodone 5 Mg Tablet PO 5 mg Q4HR PRN Administration Pain 5 to 7 Prochlorperazine Edisylate 10 mg 11/07/22 23:12 11/10/22 05:33 Prochlorperazine 10 Mg/2 Ml Vial IVP 10 mg Q6HR PRN Administration Nausea / Vomiting Sertraline HCl 50 mg 11/08/22 09:00 11/10/22 08:40 Sertraline 25 Mg Tablet PO 50 mg DAILY [facility] Administration Sodium Chloride 10 ml 11/08/22 01:00 11/10/22 09:30 Sodium Chloride Flush 0.9% 10 Ml Syringe IVP 10 ml 0100,0900,1700 [facility] Administration Sodium Chloride 10 ml 11/07/22 23:12 11/09/22 17:53 Sodium Chloride Flush 0.9% 10 Ml Syringe IVP 10 ml PRN PRN Administration NEEDED PER PROVIDER ORDERS Spironolactone 100 mg 11/10/22 09:00 11/10/22 08:47 Spironolactone 25 Mg Tablet PO 100 mg DAILY [facility] Administration Thiamine HCl 100 mg 11/08/22 09:00 11/10/22 09:30 Thiamine 100 Mg Tablet PO 100 mg DAILY [facility] Administration - Lab Result Fish Bone Diagrams: 11/10/22 05:08 11/10/22 10:02 - Additional Planning My Orders: My Active Orders 11/10/22 08:20 Drainage Fluid Collection [US] Routine 11/10/22 09:00 Furosemide [Lasix] 40 mg PO DAILY Spironolactone [Aldactone] 100 mg PO DAILY 11/10/22 12:00 Magnesium Oxide [Mag Ox] 400 mg PO Q6H 11/10/22 21:00 Pantoprazole [Protonix] 40 mg PO BID 11/11/22 05:00 CBC - COMP BLD CT W/AUTO DIFF [HEME] DAILYLAB CMP [COMPREHENSIVE METABOLIC PANEL] [CHEM] DAILYLAB PT WITH INR [COAG] DAILYLAB 11/12/22 05:00 CBC - COMP BLD CT W/AUTO DIFF [HEME] DAILYLAB CMP [COMPREHENSIVE METABOLIC PANEL] [CHEM] DAILYLAB PT WITH INR [COAG] DAILYLAB 11/13/22 05:00 CBC - COMP BLD CT W/AUTO DIFF [HEME] DAILYLAB CMP [COMPREHENSIVE METABOLIC PANEL] [CHEM] DAILYLAB 11/14/22 05:00 CMP [COMPREHENSIVE METABOLIC PANEL] [CHEM] DAILYLAB 11/15/22 05:00 CMP [COMPREHENSIVE METABOLIC PANEL] [CHEM] DAILYLAB Subjective - Subjective Patient Reports: Feeling Better, Other ( Pt more interactive. Sitting up eating breakfast.) Objective Vital Signs: Vital Signs - 24 hr 11/09/22 11/09/22 11/09/22 14:00 14:09 14:30 Temperature 36.9 C 36.9 C 36.6 C Heart Rate [ 115 H 114 H 110 H Monitoring electrodes] Respiratory 13 10 L 11 L Rate Blood Pressure 118/53 L 118/53 L 115/68 [Right Brachial artery] O2 Saturation 93 93 93 If not protocol 2 2 2 : Oxygen Flow, liters/minute 11/09/22 11/09/22 11/09/22 15:00 16:00 17:00 Temperature 37.1 C Heart Rate [ 107 H 108 H 103 H Monitoring electrodes] Respiratory 12 17 12 Rate Blood Pressure 116/74 107/64 126/68 [Right Brachial artery] O2 Saturation 93 93 95 If not protocol 2 2 2 : Oxygen Flow, liters/minute 11/09/22 11/09/22 11/09/22 17:20 18:00 18:30 Temperature 37.1 C Heart Rate [ 118 H 104 H Monitoring electrodes] Respiratory 16 12 Rate Blood Pressure 126/68 111/70 [Right Brachial artery] O2 Saturation 95 95 If not protocol 2 2 2 : Oxygen Flow, liters/minute 11/09/22 11/09/22 11/09/22 19:00 20:00 21:00 Temperature 36.2 C L 36.6 C Heart Rate [ 101 H 103 H 103 H Monitoring electrodes] Respiratory 20 24 22 Rate Blood Pressure 116/71 120/87 H 109/78 [Right Brachial artery] O2 Saturation 95 94 97 If not protocol 2 2 2 : Oxygen Flow, liters/minute 11/09/22 11/09/22 11/10/22 22:00 23:00 00:00 Temperature 36.7 C Heart Rate [ 111 H 102 H 95 Monitoring electrodes] Respiratory 22 20 17 Rate Blood Pressure 126/78 107/73 116/75 [Right Brachial artery] O2 Saturation 97 94 96 If not protocol 2 2 2 : Oxygen Flow, liters/minute 11/10/22 11/10/22 11/10/22 01:00 02:00 03:00 Temperature Heart Rate [ 99 97 93 Monitoring electrodes] Respiratory 15 13 12 Rate Blood Pressure 125/85 H 110/80 122/71 [Right Brachial artery] O2 Saturation 95 98 97 If not protocol 2 2 2 : Oxygen Flow, liters/minute 11/10/22 11/10/22 11/10/22 04:00 05:00 06:00 Temperature 36.7 C Heart Rate [ 93 93 Monitoring electrodes] Respiratory 12 16 Rate Blood Pressure 117/77 111/77 [Right Brachial artery] O2 Saturation 94 94 If not protocol 2 2 : Oxygen Flow, liters/minute 11/10/22 11/10/22 11/10/22 07:00 08:00 09:00 Temperature Heart Rate [ 91 112 H 95 Monitoring electrodes] Respiratory 12 21 13 Rate Blood Pressure 127/78 124/85 H 109/79 [Right Brachial artery] O2 Saturation 92 94 92 If not protocol 2 2 2 : Oxygen Flow, liters/minute 11/10/22 11/10/22 11/10/22 09:32 10:00 11:00 Temperature Heart Rate [ 93 94 Monitoring electrodes] Respiratory 17 12 Rate Blood Pressure 127/83 H 130/87 H [Right Brachial artery] O2 Saturation 96 96 If not protocol 1.5 2 2 : Oxygen Flow, liters/minute 11/10/22 11/10/22 12:00 13:00 Temperature Heart Rate [ 108 H 106 H Monitoring electrodes] Respiratory 18 23 Rate Blood Pressure 136/86 H 116/80 [Right Brachial artery] O2 Saturation 97 93 If not protocol 1 1 : Oxygen Flow, liters/minute Oxygen O2 Source Nasal cannula I&O (Last 24 Hrs): Intake and Output Totals x24h 11/08/22 11/09/22 11/10/22 23:59 23:59 23:59 Intake Total 1060 2721.667 2170 Output Total 275 0 100 Balance 785 2721.667 2070 General: Alert, Oriented x3, Cooperative HEENT: Atraumatic Neck: Supple Neuro: Alert, Non Focal Cardiovascular: Regular rate, Normal S1, Normal S2 Respiratory: Other (decreased BS at bases BL) Abdomen: Other (abdominal distention sec to ascites. No tenderness to palpation.) Extremities: Other (1+ BL lower extremity edema) Skin: No rashes - Results Results: Laboratory Results WBC 12.5 x10^3/uL (4.8-10.8) H 11/10/22 05:08 RBC 2.28 10^6/uL (4.70-6.10) L 11/10/22 05:08 Hgb 7.7 g/dL (14.0-18.0) L 11/10/22 05:08 Hct 22.8 % (42.0-52.0) L 11/10/22 05:08 MCV 100.0 fL (80.0-94.0) H 11/10/22 05:08 MCH 33.8 pg (27.0-31.0) H 11/10/22 05:08 MCHC 33.8 g/dL (32.0-36.0) 11/10/22 05:08 RDW 21.9 % (12.0-15.0) H 11/10/22 05:08 Plt Count 142 10^3/uL (130-450) 11/10/22 05:08 MPV 11.1 fL (7.4-11.4) 11/10/22 05:08 Neut # (Auto) 9.6 10^3/uL (1.5-6.6) H 11/10/22 05:08 Lymph # (Auto) 1.5 10^3/uL (1.5-3.5) 11/10/22 05:08 [place] # (Auto) 0.8 10^3/uL (0.0-1.0) 11/10/22 05:08 Eos # (Auto) 0.5 10^3/uL (0.0-0.7) 11/10/22 05:08 Baso # (Auto) 0.1 10^3/uL (0.0-0.1) 11/10/22 05:08 Absolute Nucleated RBC 0.00 x10^3/uL 11/10/22 05:08 Total Counted 100 11/08/22 05:10 Band Neuts % (Manual) 3 % (0-10) 11/08/22 05:10 Abnorm Lymph % (Manual) 0 % 11/08/22 05:10 Nucleated RBC % 0.0 /100WBC 11/10/22 05:08 Neutrophils # (Manual) 14.6 10^3/uL (1.5-6.6) H 11/08/22 05:10 Lymphocytes # (Manual) 2.6 10^3/uL (1.5-3.5) 11/08/22 05:10 Monocytes # (Manual) 2.6 10^3/uL (0.0-1.0) H 11/08/22 05:10 Eosinophils # (Manual) 0.0 10^3/uL (0-0.7) 11/08/22 05:10 Basophils # (Manual) 0.0 10^3/uL (0-0.1) 11/08/22 05:10 Differential Comment MANUAL DIFFERENTIAL 11/08/22 05:10 Manual Slide Review Indicated 11/10/22 05:08 Platelet Estimate NORMAL (130-450,000) (NORMAL) 11/10/22 05:08 Platelet Morphology NORMAL APPEARANCE (NORMAL) 11/08/22 14:59 RBC Morph Micro Appear 1+ ANISOCYTOSIS (NORMAL) 1+ MACROCYTOSIS (NORMAL) 1+ HYPOCHROMASIA (NORMAL) 11/10/22 05:08 RBC Morph Micro Appear 1+ ANISOCYTOSIS (NORMAL) 1+ MACROCYTOSIS (NORMAL) 1+ HYPOCHROMASIA (NORMAL) 11/10/22 05:08 RBC Morph Micro Appear 1+ ANISOCYTOSIS (NORMAL) 1+ MACROCYTOSIS (NORMAL) 1+ HYPOCHROMASIA (NORMAL) 11/10/22 05:08 PT 19.0 secs (9.9-12.6) H 11/10/22 10:02 INR 1.8 (0.8-1.2) H 11/10/22 10:02 APTT 35.2 secs (24.9-33.3) H 11/08/22 14:59 VBG pH 7.393 (7.31-7.41) 11/10/22 10:02 Ionized Calcium 1.09 mmol/L (1.15-1.33) L 11/10/22 10:02 Sodium 133 mmol/L (135-145) L 11/10/22 10:02 Potassium 3.6 mmol/L (3.5-4.5) 11/10/22 10:02 Potassium 3.6 mmol/L (3.5-4.5) 11/10/22 10:02 Chloride 101 mmol/L (101-111) 11/10/22 10:02 Carbon Dioxide 29 mmol/L (21-32) 11/10/22 10:02 Anion Gap 3.0 (6-13) L 11/10/22 10:02 BUN 9 mg/dL (6-20) 11/10/22 10:02 Creatinine 0.5 mg/dL (0.6-1.3) L 11/10/22 10:02 Estimated GFR (MDRD) 194 (>89) 11/10/22 10:02 Glucose 127 mg/dL (74-104) H 11/10/22 10:02 Calcium 7.8 mg/dL (8.5-10.3) L 11/10/22 10:02 Phosphorus 3.7 mg/dL (3.7-7.2) 11/10/22 10:02 Magnesium 1.7 mg/dL (1.7-2.3) 11/10/22 10:02 Total Bilirubin 3.0 mg/dL (0.2-1.0) H 11/10/22 10:02 AST 149 IU/L (10-42) H 11/10/22 10:02 ALT 46 IU/L (10-60) 11/10/22 10:02 Alkaline Phosphatase 217 IU/L (42-121) H 11/10/22 10:02 Ammonia 69.3 umol/L 11/10/22 10:02 Total Protein 4.9 g/dL (6.4-8.9) L 11/10/22 10:02 Albumin 2.2 g/dL (3.2-5.5) L 11/10/22 10:02 Globulin 2.7 g/dL (2.1-4.2) 11/10/22 10:02 Albumin/Globulin Ratio 0.8 (1.0-2.2) L 11/10/22 10:02 Lipase 38 U/L (22-51) 11/07/22 21:32 Nasal Screen MRSA (PCR) NEGATIVE (NEGATIVE) 11/08/22 14:32 Ethyl Alcohol 81.3 mg/dL 11/07/22 21:32 Blood Type O POSITIVE 11/07/22 21:32 Antibody Screen NEGATIVE 11/07/22 21:32 Crossmatch IS Only See Detail 11/07/22 21:32 - Procedures Procedures: Procedures CLOSURE SKIN & SUBCUTANEOUS NEC (11/17/12) DRAINAGE OF PERITONEAL CAVITY, PERCUTANEOUS APPROACH (10/23/22) DRAINAGE OF PERITONEAL CAVITY, PERCUTANEOUS APPROACH, DIAGN (10/23/22) INSPECTION OF UPPER INTESTINAL TRACT, ENDO (10/23/22) TRANSFUSE NONAUT RED BLOOD CELLS IN PERIPH VEIN, PERC (10/23/22) ABX Reporting Has patient been on IV antibiotics over the past 48 hours?: Yes
[2022-11-10] MEDS: PANTOPRAZOLE 40 MG TABLET PO SCH (22:13)
[2022-11-11] MEDS: HYDROmorphone 1 MG/ML CARPUJECT IVP PRN ×8 (02:34→23:52)
[2022-11-11] MEDS: SODIUM CHLORIDE FLUSH 0.9% 10 ML SYRINGE IVP SCH ×3 (02:35→17:26)
[2022-11-11] MEDS: oxyCODONE 5 MG TABLET PO PRN (02:39)
[2022-11-11] MEDS: PROCHLORPERAZINE 10 MG/2 ML VIAL IVP PRN ×2 (05:28→20:46)
[2022-11-11 05:37] LABS: INR 1.9 (0.8-1.2); PT - PROTHROMBIN TIME 19.4 secs (9.9-12.6)
[2022-11-11 05:54] LABS: BASOPHILS # (AUTO) 0.1 10^3/uL (0.0-0.1); BASOPHILS % (AUTO) 0.7 %; EOSINOPHILS # (AUTO) 0.3 10^3/uL (0.0-0.7); EOSINOPHILS % (AUTO) 2.5 %; HCT - HEMATOCRIT 22.7 % (42.0-52.0); HGB - HEMOGLOBIN 7.5 g/dL (14.0-18.0); LYMPHOCYTES # (AUTO) 1.3 10^3/uL (1.5-3.5); LYMPHOCYTES % (AUTO) 12.3 %; MEAN CORPUSCULAR HEMOGLOBIN 33.3 pg (27.0-31.0); MEAN CORPUSCULAR VOLUME 100.9 fL (80.0-94.0); MEAN PLATELET VOLUME 10.5 fL (7.4-11.4); MONOCYTES # (AUTO) 0.9 10^3/uL (0.0-1.0); MONOCYTES % (AUTO) 8.2 %; NEUTROPHILS # (AUTO) 8.1 10^3/uL (1.5-6.6); NEUTROPHILS % (AUTO) 75.9 %; PLT - PLATELET COUNT 130 10^3/uL (130-450); RED BLOOD COUNT 2.25 10^6/uL (4.70-6.10); RED CELL DISTRIBUTION WIDTH 21.3 % (12.0-15.0); WHITE BLOOD COUNT 10.7 x10^3/uL (4.8-10.8)
[2022-11-11 06:01] LABS: SLIDE REVIEW? Indicated
[2022-11-11 06:02] LABS: VBG PH 7.422 (7.31-7.41)
[2022-11-11 06:07] LABS: CALCIUM, IONIZED 1.09 mmol/L (1.15-1.33)
[2022-11-11 06:19] LABS: PLATELET ESTIMATE, MANUAL NORMAL (130-450,000) (NORMAL); PLATELET MORPHOLOGY NORMAL APPEARANCE (NORMAL); WBC MORPHOLOGY (MULTIPLE) NORMAL APPEARANCE (NORMAL)
[2022-11-11 06:25] LABS: ALBUMIN 2.2 g/dL (3.2-5.5); ALBUMIN/GLOBULIN RATIO 0.8 (1.0-2.2); BILIRUBIN,TOTAL 2.7 mg/dL (0.2-1.0); CALCIUM 7.6 mg/dL (8.5-10.3); CREATININE 0.4 mg/dL (0.6-1.3); POTASSIUM 3.8 mmol/L (3.5-4.5); TOTAL PROTEIN 4.8 g/dL (6.4-8.9)
[2022-11-11] MEDS ORDERED: MAGNESIUM SULFATE 2 GRAM 2 GM/50 ML BAG IV ONE ×2 (06:50→08:55)
[2022-11-11] MEDS ORDERED: CALCIUM GLUC 1,000MG/50ML-NACL 1,000 MG/50 ML BAG IV ONE (06:50)
[2022-11-11] MEDS ORDERED: POTASSIUM CHLORIDE 20 MEQ TABLET PO ONE (07:03)
[2022-11-11] MEDS: metroNIDAZOLE 500 MG/100 ML 500 MG/100 ML BAG IV SCH ×3 (08:27→23:30)
[2022-11-11] MEDS: SPIRONOLACTONE 25 MG TABLET PO SCH (08:29)
[2022-11-11] MEDS: SERTRALINE 25 MG TABLET PO SCH (08:30)
[2022-11-11] MEDS: THIAMINE 100 MG TABLET PO SCH (08:30)
[2022-11-11] MEDS: FUROSEMIDE 20 MG TABLET PO SCH (08:32)
[2022-11-11] MEDS: MULTIVITAMIN TABLET PO SCH (08:32)
[2022-11-11] MEDS: NICOTINE 14 MG PATCH TOP SCH (08:33)
[2022-11-11] MEDS: cefTRIAXone 2 GM in SODIUM CHLORIDE 0.9% MINIBAG 100 ML IV SCH (09:12)
[2022-11-11] MEDS: PANTOPRAZOLE 40 MG TABLET PO SCH ×2 (09:14→20:45)
--- NOTE | 2022-11-11 12:11 | PROVIDER PROGRESS NOTE ---
Assessment/Plan - Problem List (1) Abdominal pain Qualifiers: Abdominal location: generalized Qualified Code(s): R10.84 - Generalized abdominal pain Assessment/Plan: 1) Abdominal pain Qualifiers: Abdominal location: generalized Qualified Code(s): R10.84 - Generalized abdominal pain Assessment/Plan: Secondary to alcoholic cirrhosis with ascites. Patient had paracentesis 3600 mils removed and October 25, 2022. Patient is on Rocephin and Flagyl per admitting physician. Continue with home medications of Lasix spironolactone and lactulose -Increased lasix to 40 mg po daily and spironolactone to 100 mg daily on 11/10 -Therapeutic paracentesis when radiology is available (hopefully on 11/11) (2) GIB (gastrointestinal bleeding) Assessment/Plan: Patient did vomit some blood. Patient was scoped recent visit and was not found to have any bleeding esophageal varices on October 23. EGD showed gastric erosion nonbleeding esophageal varices. Patient was initiated on octreotide Protonix in the emergency room and this was continued. Hemoglobin hematocrit every 6 hours ordered at admission. November 09-there is no evidence of any active bleeding however patient's hemoglobin did go below 7 and was transfused 1 unit of PRBCs and will monitor (3) Alcohol withdrawal Qualifiers: Complication of substance-induced condition: uncomplicated Qualified Code(s): F10.930 - Alcohol use, unspecified with withdrawal, uncomplicated Assessment/Plan: Placed on CIWA protocol. No evidence of withdrawal this admit. (3) Alcohol withdrawal Qualifiers: Complication of substance-induced condition: uncomplicated Qualified Code(s): F10.930 - Alcohol use, unspecified with withdrawal, uncomplicated - Current Meds Current Meds: Current Medications Generic Name Dose Route Start Last Admin Trade Name Freq PRN Reason Stop Dose Admin Furosemide 40 mg 11/10/22 09:00 11/11/22 08:32 Furosemide 20 Mg Tablet PO 40 mg DAILY [facility] Administration Hydromorphone HCl 1 mg 11/08/22 17:49 11/11/22 08:54 Hydromorphone 1 Mg/Ml Carpuject IVP 1 mg Q2H PRN Administration Pain 8 to 10 Ceftriaxone Sodium 2 gm/ 100 mls @ 200 mls/hr 11/08/22 09:00 11/11/22 09:12 Sodium Chloride IV 200 mls/hr DAILY [facility] Administration Metronidazole 500 mg in 100 mls @ 100 mls/hr 11/07/22 23:45 11/11/22 08:27 Flagyl 500 Mg/100 Ml IV 100 mls/hr Q8H [facility] Administration Multivitamins 1 tab 11/08/22 09:00 11/11/22 08:32 Multivitamin Tablet PO 1 tab DAILY [facility] Administration Nicotine 1 patch 11/08/22 09:00 11/11/22 08:33 Nicotine 14 Mg Patch TOP 1 patch DAILY [facility] Administration Ondansetron HCl 4 mg 11/07/22 23:12 11/08/22 01:30 Ondansetron Odt 4 Mg Tablet TL 4 mg Q6HR PRN Administration Nausea / Vomiting Ondansetron HCl 4 mg 11/07/22 23:12 11/10/22 12:53 Ondansetron 4 Mg/2 Ml Vial IVP 4 mg Q6HR PRN Administration Nausea / Vomiting Oxycodone HCl 5 mg 11/07/22 23:12 11/11/22 02:39 Oxycodone 5 Mg Tablet PO 5 mg Q4HR PRN Administration Pain 5 to 7 Pantoprazole Sodium 40 mg 11/10/22 21:00 11/11/22 09:14 Pantoprazole 40 Mg Tablet PO 40 mg BID [facility] Administration Prochlorperazine Edisylate 10 mg 11/07/22 23:12 11/11/22 05:28 Prochlorperazine 10 Mg/2 Ml Vial IVP 10 mg Q6HR PRN Administration Nausea / Vomiting Sertraline HCl 50 mg 11/08/22 09:00 11/11/22 08:30 Sertraline 25 Mg Tablet PO 50 mg DAILY [facility] Administration Sodium Chloride 10 ml 11/08/22 01:00 11/11/22 09:14 Sodium Chloride Flush 0.9% 10 Ml Syringe IVP 10 ml 0100,0900,1700 [facility] Administration Sodium Chloride 10 ml 11/07/22 23:12 11/09/22 17:53 Sodium Chloride Flush 0.9% 10 Ml Syringe IVP 10 ml PRN PRN Administration NEEDED PER PROVIDER ORDERS Spironolactone 100 mg 11/10/22 09:00 11/11/22 08:29 Spironolactone 25 Mg Tablet PO 100 mg DAILY [facility] Administration Thiamine HCl 100 mg 11/08/22 09:00 11/11/22 08:30 Thiamine 100 Mg Tablet PO 100 mg DAILY [facility] Administration - Lab Result Fish Bone Diagrams: 11/11/22 05:45 11/11/22 05:45 - Additional Planning My Orders: My Active Orders 11/10/22 21:00 Pantoprazole [Protonix] 40 mg PO BID 11/12/22 05:00 CBC - COMP BLD CT W/AUTO DIFF [HEME] DAILYLAB CMP [COMPREHENSIVE METABOLIC PANEL] [CHEM] DAILYLAB PT WITH INR [COAG] DAILYLAB 11/13/22 05:00 CBC - COMP BLD CT W/AUTO DIFF [HEME] DAILYLAB CMP [COMPREHENSIVE METABOLIC PANEL] [CHEM] DAILYLAB 11/14/22 05:00 CMP [COMPREHENSIVE METABOLIC PANEL] [CHEM] DAILYLAB 11/15/22 05:00 CMP [COMPREHENSIVE METABOLIC PANEL] [CHEM] DAILYLAB Subjective - Subjective Patient Reports: Other (C/o abdominal swelling but no pain) Objective Vital Signs: Vital Signs - 24 hr 11/10/22 11/10/22 11/10/22 13:00 14:00 15:00 Temperature Heart Rate [ 106 H 99 97 Monitoring electrodes] Respiratory 23 13 16 Rate Blood Pressure 116/80 115/79 124/77 [Right Brachial artery] O2 Saturation 93 94 92 If not protocol 1 1 : Oxygen Flow, liters/minute 11/10/22 11/10/22 11/10/22 16:00 17:00 18:00 Temperature Heart Rate [ 95 85 115 H Monitoring electrodes] Respiratory 11 L 14 14 Rate Blood Pressure 110/60 112/81 H 128/83 H [Right Brachial artery] O2 Saturation 96 93 92 If not protocol 1 : Oxygen Flow, liters/minute 11/10/22 11/10/22 11/10/22 19:00 20:00 21:00 Temperature 36.8 C Heart Rate [ 99 99 95 Monitoring electrodes] Respiratory 15 12 12 Rate Blood Pressure 112/78 112/78 101/58 L [Right Brachial artery] O2 Saturation 94 96 If not protocol 1 1 : Oxygen Flow, liters/minute 11/10/22 11/10/22 11/11/22 22:00 23:00 00:00 Temperature 36.8 C 36.8 C Heart Rate [ 101 H 95 Monitoring electrodes] Respiratory 14 16 16 Rate Blood Pressure 117/68 122/80 121/78 [Right Brachial artery] O2 Saturation 96 94 96 If not protocol 2 2 2 : Oxygen Flow, liters/minute 11/11/22 11/11/22 11/11/22 01:00 02:00 03:00 Temperature Heart Rate [ 99 96 96 Monitoring electrodes] Respiratory 14 14 14 Rate Blood Pressure 112/72 110/77 107/83 H [Right Brachial artery] O2 Saturation 96 95 If not protocol 2 2 2 : Oxygen Flow, liters/minute 11/11/22 11/11/22 11/11/22 04:00 05:00 06:00 Temperature 36.8 C Heart Rate [ 94 98 99 Monitoring electrodes] Respiratory 16 14 14 Rate Blood Pressure 101/69 121/84 H 120/67 [Right Brachial artery] O2 Saturation 98 94 98 If not protocol 2 2 2 : Oxygen Flow, liters/minute 11/11/22 11/11/22 11/11/22 07:00 08:00 08:32 Temperature 37.2 C Heart Rate [ 99 110 H Monitoring electrodes] Respiratory 12 18 Rate Blood Pressure 116/73 119/70 [Right Brachial artery] O2 Saturation 96 If not protocol 2 : Oxygen Flow, liters/minute 11/11/22 11/11/22 11/11/22 09:00 10:00 11:00 Temperature Heart Rate [ 101 H 103 H 101 H Monitoring electrodes] Respiratory 15 18 11 L Rate Blood Pressure 108/70 106/74 104/79 [Right Brachial artery] O2 Saturation 94 93 93 If not protocol 2 2 2 : Oxygen Flow, liters/minute 11/11/22 12:00 Temperature Heart Rate [ 122 H Monitoring electrodes] Respiratory 20 Rate Blood Pressure 121/98 H [Right Brachial artery] O2 Saturation 90 L If not protocol : Oxygen Flow, liters/minute Oxygen O2 Source Room air I&O (Last 24 Hrs): Intake and Output Totals x24h 11/09/22 11/10/22 11/11/22 23:59 23:59 23:59 Intake Total 2721.667 2740 640 Output Total 0 100 0 Balance 2721.667 2640 640 General: Alert, Oriented x3, Cooperative HEENT: Atraumatic Neuro: Alert, Non Focal Cardiovascular: Regular rate, Normal S1, Normal S2 Respiratory: No respiratory distress, Other (decreased BS at bases) Abdomen: Other (large ascites,no pain to palpation) Extremities: Other (1+ LE edema) Skin: No rashes - Results Results: Laboratory Results WBC 10.7 x10^3/uL (4.8-10.8) 11/11/22 05:45 RBC 2.25 10^6/uL (4.70-6.10) L 11/11/22 05:45 Hgb 7.5 g/dL (14.0-18.0) L 11/11/22 05:45 Hct 22.7 % (42.0-52.0) L 11/11/22 05:45 MCV 100.9 fL (80.0-94.0) H 11/11/22 05:45 MCH 33.3 pg (27.0-31.0) H 11/11/22 05:45 MCHC 33.0 g/dL (32.0-36.0) 11/11/22 05:45 RDW 21.3 % (12.0-15.0) H 11/11/22 05:45 Plt Count 130 10^3/uL (130-450) 11/11/22 05:45 MPV 10.5 fL (7.4-11.4) 11/11/22 05:45 Neut # (Auto) 8.1 10^3/uL (1.5-6.6) H 11/11/22 05:45 Lymph # (Auto) 1.3 10^3/uL (1.5-3.5) L 11/11/22 05:45 [place] # (Auto) 0.9 10^3/uL (0.0-1.0) 11/11/22 05:45 Eos # (Auto) 0.3 10^3/uL (0.0-0.7) 11/11/22 05:45 Baso # (Auto) 0.1 10^3/uL (0.0-0.1) 11/11/22 05:45 Absolute Nucleated RBC 0.00 x10^3/uL 11/11/22 05:45 Total Counted 100 11/08/22 05:10 Band Neuts % (Manual) 3 % (0-10) 11/08/22 05:10 Abnorm Lymph % (Manual) 0 % 11/08/22 05:10 Nucleated RBC % 0.0 /100WBC 11/11/22 05:45 Neutrophils # (Manual) 14.6 10^3/uL (1.5-6.6) H 11/08/22 05:10 Lymphocytes # (Manual) 2.6 10^3/uL (1.5-3.5) 11/08/22 05:10 Monocytes # (Manual) 2.6 10^3/uL (0.0-1.0) H 11/08/22 05:10 Eosinophils # (Manual) 0.0 10^3/uL (0-0.7) 11/08/22 05:10 Basophils # (Manual) 0.0 10^3/uL (0-0.1) 11/08/22 05:10 Differential Comment MANUAL DIFFERENTIAL 11/08/22 05:10 Manual Slide Review Indicated 11/11/22 05:45 WBC Morphology NORMAL APPEARANCE (NORMAL) 11/11/22 05:45 Platelet Estimate NORMAL (130-450,000) (NORMAL) 11/11/22 05:45 Platelet Morphology NORMAL APPEARANCE (NORMAL) 11/11/22 05:45 RBC Morph Micro Appear 1+ ANISOCYTOSIS (NORMAL) 1+ HYPOCHROMASIA (NORMAL) 1+ MACROCYTOSIS (NORMAL) 11/11/22 05:45 RBC Morph Micro Appear 1+ ANISOCYTOSIS (NORMAL) 1+ HYPOCHROMASIA (NORMAL) 1+ MACROCYTOSIS (NORMAL) 11/11/22 05:45 RBC Morph Micro Appear 1+ ANISOCYTOSIS (NORMAL) 1+ HYPOCHROMASIA (NORMAL) 1+ MACROCYTOSIS (NORMAL) 11/11/22 05:45 PT 19.4 secs (9.9-12.6) H 11/11/22 05:23 INR 1.9 (0.8-1.2) H 11/11/22 05:23 APTT 35.2 secs (24.9-33.3) H 11/08/22 14:59 VBG pH 7.422 (7.31-7.41) H 11/11/22 05:45 Ionized Calcium 1.09 mmol/L (1.15-1.33) L 11/11/22 05:45 Sodium 132 mmol/L (135-145) L 11/11/22 05:45 Potassium 3.8 mmol/L (3.5-4.5) 11/11/22 05:45 Chloride 100 mmol/L (101-111) L 11/11/22 05:45 Carbon Dioxide 30 mmol/L (21-32) 11/11/22 05:45 Anion Gap 2.0 (6-13) L 11/11/22 05:45 BUN 7 mg/dL (6-20) 11/11/22 05:45 Creatinine 0.4 mg/dL (0.6-1.3) L 11/11/22 05:45 Estimated GFR (MDRD) 251 (>89) 11/11/22 05:45 Glucose 101 mg/dL (74-104) 11/11/22 05:45 Calcium 7.6 mg/dL (8.5-10.3) L 11/11/22 05:45 Phosphorus 3.7 mg/dL (3.7-7.2) 11/10/22 10:02 Magnesium 1.6 mg/dL (1.7-2.3) L 11/11/22 05:45 Total Bilirubin 2.7 mg/dL (0.2-1.0) H 11/11/22 05:45 AST 111 IU/L (10-42) H 11/11/22 05:45 ALT 39 IU/L (10-60) 11/11/22 05:45 Alkaline Phosphatase 212 IU/L (42-121) H 11/11/22 05:45 Ammonia 69.3 umol/L 11/10/22 10:02 Total Protein 4.8 g/dL (6.4-8.9) L 11/11/22 05:45 Albumin 2.2 g/dL (3.2-5.5) L 11/11/22 05:45 Globulin 2.6 g/dL (2.1-4.2) 11/11/22 05:45 Albumin/Globulin Ratio 0.8 (1.0-2.2) L 11/11/22 05:45 Lipase 38 U/L (22-51) 11/07/22 21:32 Folate 11.8 ng/mL (5.90 - >24.8) 11/11/22 05:45 Nasal Screen MRSA (PCR) NEGATIVE (NEGATIVE) 11/08/22 14:32 Ethyl Alcohol 81.3 mg/dL 11/07/22 21:32 Blood Type O POSITIVE 11/07/22 21:32 Antibody Screen NEGATIVE 07/27/23 21:32 Crossmatch IS Only See Detail 11/07/22 21:32 - Procedures Procedures: Procedures CLOSURE SKIN & SUBCUTANEOUS NEC (11/17/12) DRAINAGE OF PERITONEAL CAVITY, PERCUTANEOUS APPROACH (10/23/22) DRAINAGE OF PERITONEAL CAVITY, PERCUTANEOUS APPROACH, DIAGN (10/23/22) INSPECTION OF UPPER INTESTINAL TRACT, ENDO (10/23/22) TRANSFUSE NONAUT RED BLOOD CELLS IN PERIPH VEIN, PERC (10/23/22) ABX Reporting Has patient been on IV antibiotics over the past 48 hours?: Yes
--- NOTE | 2022-11-11 14:56 | Ultrasound Report ---
PROCEDURE: Abdomen Limited INDICATIONS: ascites TECHNIQUE: Real-time focused scanning was performed of the abdomen, with image documentation. COMPARISONS: None. FINDINGS: Moderate volume abdominal and pelvic ascites noted. IMPRESSION: Moderate volume abdominal and pelvic ascites present, amendable to paracentesis Reviewed by: Rogelio Silverio MD on 11/11/2022 1:54 PM [facility]DT Approved by: Rogelio Silverio MD on 11/11/2022 1:54 PM AKDT Station ID: [id number]
[2022-11-11] MEDS: MAGNESIUM OXIDE 400 MG TABLET PO SCH ×3 (17:05→23:30)
[2022-11-11] MEDS: CALCIUM CARBONATE CHEW 500 MG TABLET PO SCH (20:45)
[2022-11-11] MEDS: SODIUM CHLORIDE FLUSH 0.9% 10 ML SYRINGE IVP PRN ×2 (20:46→23:53)
[2022-11-12] MEDS: SODIUM CHLORIDE FLUSH 0.9% 10 ML SYRINGE IVP SCH ×3 (00:39→15:45)
[2022-11-12] MEDS: HYDROmorphone 1 MG/ML CARPUJECT IVP PRN ×5 (04:12→21:50)
[2022-11-12] MEDS: SODIUM CHLORIDE FLUSH 0.9% 10 ML SYRINGE IVP PRN (04:13)
[2022-11-12 05:13] LABS: BASOPHILS # (AUTO) 0.1 10^3/uL (0.0-0.1); BASOPHILS % (AUTO) 0.5 %; EOSINOPHILS # (AUTO) 0.2 10^3/uL (0.0-0.7); HCT - HEMATOCRIT 22.2 % (42.0-52.0); HGB - HEMOGLOBIN 7.2 g/dL (14.0-18.0); LYMPHOCYTES # (AUTO) 1.4 10^3/uL (1.5-3.5); LYMPHOCYTES % (AUTO) 13.3 %; MEAN CORPUSCULAR HEMOGLOBIN 32.6 pg (27.0-31.0); MEAN CORPUSCULAR HGB CONC 32.4 g/dL (32.0-36.0); MEAN CORPUSCULAR VOLUME 100.5 fL (80.0-94.0); MEAN PLATELET VOLUME 11.3 fL (7.4-11.4); MONOCYTES # (AUTO) 1.2 10^3/uL (0.0-1.0); MONOCYTES % (AUTO) 11.4 %; NEUTROPHILS # (AUTO) 7.4 10^3/uL (1.5-6.6); NEUTROPHILS % (AUTO) 72.5 %; PLT - PLATELET COUNT 128 10^3/uL (130-450); RED BLOOD COUNT 2.21 10^6/uL (4.70-6.10); WHITE BLOOD COUNT 10.2 x10^3/uL (4.8-10.8)
[2022-11-12 05:19] LABS: INR 2.1 (0.8-1.2); PT - PROTHROMBIN TIME 21.3 secs (9.9-12.6); SLIDE REVIEW? Indicated
[2022-11-12 05:20] LABS: CALCIUM, IONIZED 1.07 mmol/L (1.15-1.33); VBG PH 7.455 (7.31-7.41)
[2022-11-12 05:28] LABS: ALBUMIN 2.1 g/dL (3.2-5.5); ALBUMIN/GLOBULIN RATIO 0.7 (1.0-2.2); BILIRUBIN,TOTAL 2.7 mg/dL (0.2-1.0); CALCIUM 7.7 mg/dL (8.5-10.3); CREATININE 0.4 mg/dL (0.6-1.3); POTASSIUM 3.9 mmol/L (3.5-4.5); TOTAL PROTEIN 5.1 g/dL (6.4-8.9)
[2022-11-12 05:29] LABS: PLATELET ESTIMATE, MANUAL NORMAL (130-450,000) (NORMAL); PLATELET MORPHOLOGY NORMAL APPEARANCE (NORMAL); WBC MORPHOLOGY (MULTIPLE) NORMAL APP (NORMAL)
[2022-11-12 06:13] LABS: MAGNESIUM 1.6 mg/dL (1.7-2.3)
[2022-11-12] MEDS ORDERED: MAGNESIUM OXIDE 400 MG TABLET PO ONE ×2 (06:21→16:00)
[2022-11-12] MEDS: CALCIUM CARBONATE CHEW 500 MG TABLET PO SCH ×6 (06:34→21:50)
[2022-11-12] MEDS ORDERED: POTASSIUM CHLORIDE 20 MEQ TABLET PO ONE ×2 (08:00→16:00)
[2022-11-12] MEDS: metroNIDAZOLE 500 MG/100 ML 500 MG/100 ML BAG IV SCH (08:06)
[2022-11-12] MEDS: PRENATAL VITAMIN TABLET PO SCH (08:07)
[2022-11-12] MEDS: PANTOPRAZOLE 40 MG TABLET PO SCH ×2 (08:09→21:49)
[2022-11-12] MEDS: SERTRALINE 25 MG TABLET PO SCH (08:09)
[2022-11-12] MEDS: SPIRONOLACTONE 25 MG TABLET PO SCH (08:09)
[2022-11-12] MEDS: MAGNESIUM OXIDE 400 MG TABLET PO SCH ×2 (08:09→21:49)
[2022-11-12] MEDS: FUROSEMIDE 20 MG TABLET PO SCH (08:09)
[2022-11-12] MEDS: NICOTINE 14 MG PATCH TOP SCH (08:10)
[2022-11-12] MEDS: THIAMINE 100 MG TABLET PO SCH (08:57)
[2022-11-12] MEDS: PROCHLORPERAZINE 10 MG/2 ML VIAL IVP PRN ×2 (08:59→21:50)
[2022-11-12] MEDS: cefTRIAXone 2 GM in SODIUM CHLORIDE 0.9% MINIBAG 100 ML IV SCH (09:50)
[2022-11-12] MEDS ORDERED: LIDOCAINE-MPF 1% 5 ML VIAL ONE (12:37)
[2022-11-12] MEDS: oxyCODONE 5 MG TABLET PO PRN ×2 (14:18→20:01)
[2022-11-12] MEDS: metroNIDAZOLE 250 MG TABLET PO SCH ×2 (14:23→21:49)
[2022-11-12] MEDS: ONDANSETRON ODT 4 MG TABLET TL PRN (14:36)
[2022-11-12 14:42] LABS: CALCIUM, IONIZED 1.07 mmol/L (1.15-1.33); VBG PH 7.46 (7.31-7.41)
[2022-11-12 14:53] LABS: MAGNESIUM 1.5 mg/dL (1.7-2.3); POTASSIUM 3.9 mmol/L (3.5-4.5)
--- NOTE | 2022-11-12 17:18 | Ultrasound Report ---
PROCEDURE: Abdominal Paracentesis INDICATIONS: ascites, tense, w abd pain TECHNIQUE: The indications, alternatives, benefits, risks, and complications of the procedure were explained to the patient. Written informed consent was obtained and placed in the chart. The abdomen and pelvis were examined sonographically, and an appropriate site was chosen for paracentesis. The skin was pre pared and draped in the usual sterile fashion, and 1% lidocaine was infiltrated from the skin down th rough the peritoneal surface. A 19-gauge catheter-covered needle was then introduced into the perito rafael space, the catheter was advanced and the needle was withdrawn, and thereafter peritoneal fluid w as withdrawn. The catheter was then removed and a dressing was applied. The fluid was discarded if the clinician did not order diagnostic testing of the fluid. COMPARISON: 11/11/2022 FINDINGS: Access site: Left lower quadrant Needle: One-Step centesis catheter with introducer needle. Fluid volume and description: 4 L of clear, straw-colored ascites Fluid sent for diagnostic testing: None sent for testing. This was a therapeutic paracentesis. Medications: 1% lidocaine for local anaesthesia. Complications: None. IMPRESSION: Successful ultrasound-guided paracentesis. Reviewed by: Jay Tesfaye MD on 11/12/2022 5:17 PM PDT Approved by: Jay Tesfaye MD on 11/12/2022 5:17 PM PDT Station ID: [id number]
--- NOTE | 2022-11-12 18:34 | PROVIDER PROGRESS NOTE ---
Subjective - Prog Note Date Prog Note Date: 11/12/22 Prog Note Time: 18:32 - Subjective Pt reports feeling: No change Subjective: He tells me that he only had 1 beer between discharge last time and this admission. But is toxicology screen shows an ethyl alcohol level of 81.3 mg/dL. Which indicates he had at least 6 beers in the intervening time right before he got his blood drawn. If we had done his blood alcohol level 2 hours before then, might of been higher. His main complaint is testicular and scrotal pain from his scrotal edema. We noted that he was 100 kg when he was discharged from his last visit and had gone up to 125 kg with this admission. He is not requiring any benzodiazepines for withdrawal. He is mainly waiting for a paracentesis for the abdominal pain and symptomatic relief of the ascites. Current Medications - Current Medications Current Medications: Active Medications Calcium Carbonate/Glycine (Calcium Carbonate Chew 500 Mg Tablet) 500 mg PO BID [facility] Last Admin: 11/12/22 08:09 Dose: 500 mg Calcium Carbonate/Glycine (Calcium Carbonate Chew 500 Mg Tablet) 1,250 mg PO Q4H [facility]; Protocol Stop: 11/12/22 20:01 Last Admin: 11/12/22 15:44 Dose: 1,250 mg Furosemide (Furosemide 20 Mg Tablet) 40 mg PO DAILY [facility] Last Admin: 11/12/22 08:09 Dose: 40 mg Hydromorphone HCl (Hydromorphone 1 Mg/Ml Carpuject) 1 mg IVP Q2H PRN PRN Reason: Pain 8 to 10 Last Admin: 11/12/22 14:23 Dose: 1 mg Ceftriaxone Sodium 2 gm/ (Sodium Chloride) 100 mls @ 200 mls/hr IV DAILY [facility] Last Infusion: 11/12/22 10:28 Dose: Infused Lactulose (Lactulose 10 Gm /15 Ml Udc) 10 gm PO DAILY PRN PRN Reason: NEEDED PER PROVIDER ORDERS Magnesium Oxide (Magnesium Oxide 400 Mg Tablet) 400 mg PO BID [facility] Last Admin: 11/12/22 08:09 Dose: 400 mg Metronidazole (Metronidazole 250 Mg Tablet) 500 mg PO TID [facility] Last Admin: 11/12/22 14:23 Dose: 500 mg Nicotine (Nicotine 14 Mg Patch) 1 patch TOP DAILY [facility] Last Admin: 11/12/22 08:10 Dose: 1 patch Ondansetron HCl (Ondansetron Odt 4 Mg Tablet) 4 mg TL Q6HR PRN PRN Reason: Nausea / Vomiting Last Admin: 11/12/22 14:36 Dose: 4 mg Ondansetron HCl (Ondansetron 4 Mg/2 Ml Vial) 4 mg IVP Q6HR PRN PRN Reason: Nausea / Vomiting Last Admin: 11/10/22 12:53 Dose: 4 mg Oxycodone HCl (Oxycodone 5 Mg Tablet) 5 mg PO Q4HR PRN PRN Reason: Pain 5 to 7 Last Admin: 11/12/22 14:18 Dose: 5 mg Pantoprazole Sodium (Pantoprazole 40 Mg Tablet) 40 mg PO BID [facility] Last Admin: 11/12/22 08:09 Dose: 40 mg Multivit/Folic Acid/Iron ( Vitamin Tablet) 1 tab PO DAILYWM [facility] Last Admin: 11/12/22 08:07 Dose: 1 tab Prochlorperazine Edisylate (Prochlorperazine 10 Mg/2 Ml Vial) 10 mg IVP Q6HR PRN PRN Reason: Nausea / Vomiting Last Admin: 11/12/22 08:59 Dose: 10 mg Sertraline HCl (Sertraline 25 Mg Tablet) 50 mg PO DAILY [facility] Last Admin: 11/12/22 08:09 Dose: 50 mg Sodium Chloride (Sodium Chloride Flush 0.9% 10 Ml Syringe) 10 ml IVP 0100,0900,1700 [facility] Last Admin: 11/12/22 15:45 Dose: 10 ml Sodium Chloride (Sodium Chloride Flush 0.9% 10 Ml Syringe) 10 ml IVP PRN PRN PRN Reason: NEEDED PER PROVIDER ORDERS Last Admin: 11/12/22 04:13 Dose: 10 ml Spironolactone (Spironolactone 25 Mg Tablet) 100 mg PO DAILY [facility] Last Admin: 11/12/22 08:09 Dose: 100 mg Thiamine HCl (Thiamine 100 Mg Tablet) 100 mg PO DAILY [facility] Last Admin: 11/12/22 08:57 Dose: 100 mg Omeprazole Magnesium 20 mg PO QDAC 07/02/22 Multivitamin [Theragran] 1 tab PO DAILY 10/23/22 Objective - Vital Signs/Intake & Output Reviewed Vital Signs: Yes Vital Signs: Vital Signs Temp Pulse Resp BP Pulse Ox O2 Flow Rate 11/12/22 18:00 105 H 16 106/50 L 94 1 11/12/22 17:00 106 H 15 99/52 L 92 1 11/12/22 15:58 98.4 C H 107 H 16 92/57 L 94 1 11/12/22 15:00 107 H 16 99/47 L 92 1 Intake & Output: Intake & Output 11/09/22 11/10/22 11/11/22 11/12/22 23:59 23:59 23:59 23:59 Intake Total 2721.667 2740 1480 1280 Output Total 0 100 0 Balance 2721.667 2640 1480 1280 - Objective General Appearance: positive: Alert, Moderate distress (From the pain in his testicles and distended abdominal wall), Other (Bearded white male, looks older than stated age, sitting up in chair. Sitting at the edge of his testicles hanging over) Eyes Bilateral: positive: PERRL, EOMI Eyes: OU Scleral icterus ENT: positive: Pharynx nml, No signs of dehydration Neck: positive: No JVD. negative: Stiff neck Respiratory: positive: No respiratory distress, Other (Diminished at least the lower force of his lungs. Above that he has occasional rhonchi that disappear with a good cough) Cardiovascular: positive: Regular rate & rhythm Abdomen: positive: Other (Distended, positive fluid wave, generalized tenderness worse at the mid and lower abdominal waterman. No rebound or guarding. Hypoactive bowel sounds) Skin: positive: Warm, Dry, Other (Jaundiced) Extremities: positive: Full ROM, Pedal edema, Other (Severe scrotal edema) Neurologic/Psychiatric: positive: Oriented x3, CN's nml (2-12), Motor nml - Lab Results Fish Bones: 11/12/22 04:45 11/12/22 14:29 Other Labs: Lab Results x24hrs 11/12/22 11/12/22 11/12/22 Range/Units 14:29 14:29 04:45 WBC (4.8-10.8) x10^3/uL RBC (4.70-6.10) 10^6/uL Hgb (14.0-18.0) g/dL Hct (42.0-52.0) % MCV (80.0-94.0) fL MCH (27.0-31.0) pg MCHC (32.0-36.0) g/dL RDW (12.0-15.0) % Plt Count (130-450) 10^3/uL MPV (7.4-11.4) fL Neut # (Auto) (1.5-6.6) 10^3/uL Lymph # (Auto) (1.5-3.5) 10^3/uL [place] # (Auto) (0.0-1.0) 10^3/uL Eos # (Auto) (0.0-0.7) 10^3/uL Baso # (Auto) (0.0-0.1) 10^3/uL Absolute Nucleated RBC x10^3/uL Nucleated RBC % /100WBC Manual Slide Review WBC Morphology (NORMAL) Platelet Estimate (NORMAL) Platelet Morphology (NORMAL) RBC Morph Micro Appear (NORMAL) PT (9.9-12.6) secs INR (0.8-1.2) VBG pH 7.460 H (7.31-7.41) Ionized Calcium 1.07 L (1.15-1.33) mmol/L Sodium (135-145) mmol/L Potassium 3.9 (3.5-4.5) mmol/L Chloride (101-111) mmol/L Carbon Dioxide (21-32) mmol/L Anion Gap (6-13) BUN (6-20) mg/dL Creatinine (0.6-1.3) mg/dL Estimated GFR (MDRD) (>89) Glucose (74-104) mg/dL Calcium (8.5-10.3) mg/dL Phosphorus 3.0 L (3.7-7.2) mg/dL Magnesium 1.5 L 1.6 L (1.7-2.3) mg/dL Total Bilirubin (0.2-1.0) mg/dL AST (10-42) IU/L ALT (10-60) IU/L Alkaline Phosphatase (42-121) IU/L Total Protein (6.4-8.9) g/dL Albumin (3.2-5.5) g/dL Globulin (2.1-4.2) g/dL Albumin/Globulin Ratio (1.0-2.2) 11/12/22 11/12/22 11/12/22 Range/Units 04:45 04:45 04:45 WBC (4.8-10.8) x10^3/uL RBC (4.70-6.10) 10^6/uL Hgb (14.0-18.0) g/dL Hct (42.0-52.0) % MCV (80.0-94.0) fL MCH (27.0-31.0) pg MCHC (32.0-36.0) g/dL RDW (12.0-15.0) % Plt Count (130-450) 10^3/uL MPV (7.4-11.4) fL Neut # (Auto) (1.5-6.6) 10^3/uL Lymph # (Auto) (1.5-3.5) 10^3/uL [place] # (Auto) (0.0-1.0) 10^3/uL Eos # (Auto) (0.0-0.7) 10^3/uL Baso # (Auto) (0.0-0.1) 10^3/uL Absolute Nucleated RBC x10^3/uL Nucleated RBC % /100WBC Manual Slide Review WBC Morphology (NORMAL) Platelet Estimate (NORMAL) Platelet Morphology (NORMAL) RBC Morph Micro Appear (NORMAL) PT 21.3 H (9.9-12.6) secs INR 2.1 H (0.8-1.2) VBG pH 7.455 H (7.31-7.41) Ionized Calcium 1.07 L (1.15-1.33) mmol/L Sodium 132 L (135-145) mmol/L Potassium 3.9 (3.5-4.5) mmol/L Chloride 100 L (101-111) mmol/L Carbon Dioxide 31 (21-32) mmol/L Anion Gap 1.0 L (6-13) BUN 5 L (6-20) mg/dL Creatinine 0.4 L (0.6-1.3) mg/dL Estimated GFR (MDRD) 251 (>89) Glucose 96 (74-104) mg/dL Calcium 7.7 L (8.5-10.3) mg/dL Phosphorus (3.7-7.2) mg/dL Magnesium (1.7-2.3) mg/dL Total Bilirubin 2.7 H (0.2-1.0) mg/dL AST 91 H (10-42) IU/L ALT 32 (10-60) IU/L Alkaline Phosphatase 205 H (42-121) IU/L Total Protein 5.1 L (6.4-8.9) g/dL Albumin 2.1 L (3.2-5.5) g/dL Globulin 3.0 (2.1-4.2) g/dL Albumin/Globulin Ratio 0.7 L (1.0-2.2) 11/12/22 Range/Units 04:45 WBC 10.2 (4.8-10.8) x10^3/uL RBC 2.21 L (4.70-6.10) 10^6/uL Hgb 7.2 L (14.0-18.0) g/dL Hct 22.2 L (42.0-52.0) % MCV 100.5 H (80.0-94.0) fL MCH 32.6 H (27.0-31.0) pg MCHC 32.4 (32.0-36.0) g/dL RDW 22.0 H (12.0-15.0) % Plt Count 128 L (130-450) 10^3/uL MPV 11.3 (7.4-11.4) fL Neut # (Auto) 7.4 H (1.5-6.6) 10^3/uL Lymph # (Auto) 1.4 L (1.5-3.5) 10^3/uL [place] # (Auto) 1.2 H (0.0-1.0) 10^3/uL Eos # (Auto) 0.2 (0.0-0.7) 10^3/uL Baso # (Auto) 0.1 (0.0-0.1) 10^3/uL Absolute Nucleated RBC 0.00 x10^3/uL Nucleated RBC % 0.0 /100WBC Manual Slide Review Indicated WBC Morphology NORMAL RADHA (NORMAL) Platelet Estimate NORMAL (130-450,000) (NORMAL) Platelet Morphology NORMAL APPEARANCE (NORMAL) RBC Morph Micro Appear 1+ MACROCYTOSIS (NORMAL) PT (9.9-12.6) secs INR (0.8-1.2) VBG pH (7.31-7.41) Ionized Calcium (1.15-1.33) mmol/L Sodium (135-145) mmol/L Potassium (3.5-4.5) mmol/L Chloride (101-111) mmol/L Carbon Dioxide (21-32) mmol/L Anion Gap (6-13) BUN (6-20) mg/dL Creatinine (0.6-1.3) mg/dL Estimated GFR (MDRD) (>89) Glucose (74-104) mg/dL Calcium (8.5-10.3) mg/dL Phosphorus (3.7-7.2) mg/dL Magnesium (1.7-2.3) mg/dL Total Bilirubin (0.2-1.0) mg/dL AST (10-42) IU/L ALT (10-60) IU/L Alkaline Phosphatase (42-121) IU/L Total Protein (6.4-8.9) g/dL Albumin (3.2-5.5) g/dL Globulin (2.1-4.2) g/dL Albumin/Globulin Ratio (1.0-2.2) Assessment/Plan - Problem List (1) Abdominal pain Impression: Secondary to alcoholic cirrhosis with ascites causing distension of abd wall. Patient had paracentesis 3600 mils removed and October 25, 2022. Patient is on Rocephin and Flagyl per admitting physician. Continue with home medications of Lasix 40 mg daily and spironolactone 100 mg daily and lactulose. But he is having >3 stools a day so hasn't had lactulose today. Plan: -Therapeutic paracentesis today -I spoke to urology who said that he needs either a jockstrap or something that he can for needle on his own to elevate his testicles. But does not have anythi ng special to offer -Transfer to [facility] status from ICU status (2) GIB (gastrointestinal bleeding) Assessment/Plan: Patient did vomit some blood. Patient was scoped recent visit and was not found to have any bleeding esophageal varices on October 23. EGD showed gastric erosion nonbleeding esophageal varices. Patient was initiated on octreotide Protonix in the emergency room and this was disMost likely he is still oozing. There is no melena or hematochezia. He is not a candidate for octreotide at this current moment. We will continue to monitor and transfuse when drops below 7continued. Hemoglobin hematocrit every 6 hours ordered at admission. November 09-there is no evidence of any active bleeding however patient's hemoglobin did go below 7 and was transfused 2 units of PRBCs His hemoglobin peaked at 7.7 after the transfusion. That was on November 10. Yesterday he was 7.5, and today 7.2. (3) Alcohol withdrawal Qualifiers: Complication of substance-induced condition: uncomplicated Qualified Code(s): F10.930 - Alcohol use, unspecified with withdrawal, uncomplicated Assessment/Plan: No longer needs CIWA protocol. But continued on vitamin supplements. 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 He says he only had 1 beer but alcohol level would indicate he may have had 4-6 based on his weight. All I can do is remind him that he has a lethal illness. He could survive if given enough time and if he did not abuse alcohol. But if he continues to be his alcohol he may not be with this in the next couple of years.
[2022-11-12] MEDS ORDERED: LIDOCAINE-MPF 1% 5 ML VIAL TD ONE (20:12)
[2022-11-13] MEDS: HYDROmorphone 1 MG/ML CARPUJECT IVP PRN ×3 (00:37→08:10)
[2022-11-13] MEDS: SODIUM CHLORIDE FLUSH 0.9% 10 ML SYRINGE IVP SCH ×2 (00:37→04:16)
[2022-11-13] MEDS: SODIUM CHLORIDE FLUSH 0.9% 10 ML SYRINGE IVP PRN ×2 (00:43→06:00)
[2022-11-13 05:35] LABS: CALCIUM, IONIZED 1.08 mmol/L (1.15-1.33); VBG PH 7.476 (7.31-7.41)
[2022-11-13] MEDS: metroNIDAZOLE 250 MG TABLET PO SCH (05:35)
[2022-11-13 05:38] LABS: BASOPHILS % (AUTO) 0.4 %; EOSINOPHILS # (AUTO) 0.1 10^3/uL (0.0-0.7); EOSINOPHILS % (AUTO) 1.3 %; HCT - HEMATOCRIT 21.8 % (42.0-52.0); HGB - HEMOGLOBIN 7.1 g/dL (14.0-18.0); LYMPHOCYTES # (AUTO) 1.4 10^3/uL (1.5-3.5); LYMPHOCYTES % (AUTO) 14.4 %; MEAN CORPUSCULAR HEMOGLOBIN 32.9 pg (27.0-31.0); MEAN CORPUSCULAR HGB CONC 32.6 g/dL (32.0-36.0); MEAN CORPUSCULAR VOLUME 100.9 fL (80.0-94.0); MEAN PLATELET VOLUME 11.7 fL (7.4-11.4); MONOCYTES # (AUTO) 1.3 10^3/uL (0.0-1.0); MONOCYTES % (AUTO) 13.5 %; NEUTROPHILS # (AUTO) 6.9 10^3/uL (1.5-6.6); NEUTROPHILS % (AUTO) 70.1 %; PLT - PLATELET COUNT 111 10^3/uL (130-450); RED BLOOD COUNT 2.16 10^6/uL (4.70-6.10); RED CELL DISTRIBUTION WIDTH 21.9 % (12.0-15.0); SLIDE REVIEW? Indicated; WHITE BLOOD COUNT 9.8 x10^3/uL (4.8-10.8)
[2022-11-13 05:46] LABS: ALBUMIN 2.1 g/dL (3.2-5.5); ALBUMIN/GLOBULIN RATIO 0.8 (1.0-2.2); BILIRUBIN,TOTAL 2.4 mg/dL (0.2-1.0); CALCIUM 7.6 mg/dL (8.5-10.3); CREATININE 0.4 mg/dL (0.6-1.3); MAGNESIUM 1.4 mg/dL (1.7-2.3); PHOSPHORUS 2.7 mg/dL (3.7-7.2); TOTAL PROTEIN 4.9 g/dL (6.4-8.9)
[2022-11-13 05:49] LABS: PLATELET ESTIMATE, MANUAL DECREASED (<130,000) (NORMAL); PLATELET MORPHOLOGY NORMAL APPEARANCE (NORMAL); WBC MORPHOLOGY (MULTIPLE) NORMAL APPEARANCE (NORMAL)
[2022-11-13] MEDS: ONDANSETRON 4 MG/2 ML VIAL IVP PRN (06:00)
[2022-11-13] MEDS: NICOTINE 14 MG PATCH TOP SCH (08:10)
[2022-11-13] MEDS: SERTRALINE 25 MG TABLET PO SCH (08:11)
[2022-11-13] MEDS: CALCIUM CARBONATE CHEW 500 MG TABLET PO SCH (08:11)
[2022-11-13] MEDS: MAGNESIUM OXIDE 400 MG TABLET PO SCH (08:11)
[2022-11-13] MEDS: PANTOPRAZOLE 40 MG TABLET PO SCH (08:12)
[2022-11-13] MEDS: SPIRONOLACTONE 25 MG TABLET PO SCH (08:12)
[2022-11-13] MEDS: FUROSEMIDE 20 MG TABLET PO SCH (08:12)
[2022-11-13] MEDS: THIAMINE 100 MG TABLET PO SCH (08:12)
[2022-11-13] MEDS: cefTRIAXone 2 GM in SODIUM CHLORIDE 0.9% MINIBAG 100 ML IV SCH (08:12)
[2022-11-13] MEDS: PRENATAL VITAMIN TABLET PO SCH (08:12)
[2022-11-13] MEDS: PROCHLORPERAZINE 10 MG/2 ML VIAL IVP PRN (08:30)
[2022-11-13] MEDS: oxyCODONE 5 MG TABLET PO PRN (10:28)
--- NOTE | 2022-11-13 11:08 | Discharge Plan ---
Discharge Plan Problem Reviewed?: Yes Disposition: Home, Self Care Condition: Poor Prescriptions: oxyCODONE [Roxicodone] 5 mg PO Q4HR PRN #30 tab PRN Reason: Pain 5 to 7 Spironolactone [Aldactone] 100 mg PO DAILY #120 tab Magnesium Oxide [Mag Ox] 400 mg PO BID #60 tab Diet: Low Sodium Activity Restrictions: Activity as Tolerated Shower Restrictions: No Driving Restrictions: No Instruction Topics: Hydrocele Nb Health Concerns: Unfortunately you have known liver failure from alcohol abuse. This is resulted in scarring of the liver and severe cirrhosis. The secondary effects of that are backup pressure up the esophagus veins, the rectal veins, and fluid buildup inside your abdomen. Unfortunately you are still rarely drinking. Your alcohol level was 0.8 when you came to the ER. You came to the ER because of abdominal discomfort and pain from the fluid buildup in your abdomen. A secondary problem is that of severe scrotal edema. It is very painful to walk or to sit down since your testicles are very distended from the same process that causes fluid to build up in your abdomen. Plan of Treatment: You underwent a 4 L paracentesis. In other words 4 L of fluid was removed from your abdomen cavity through insertion of a needle through the abdominal wall. Your weight was 122 kg before the procedure and was down to 117.5 kg after the procedure. In order to keep the fluid from building up, you need to make sure that you take all of your cirrhosis medications which includes spironolactone 100 mg a day, Lasix 20 mg a day, potassium 30 mEq twice a day, and magnesium 400 mg twice a day. You must remain on a low-salt diet. Liver failure causes ammonia to build up in your bloodstream. It affects thought process and can make you have severe cognitive deficits. You are supposed to be taking lactulose daily for that. However you already have several loose bowel movements a day. Lactulose will only make that worse. We advise you take at lactulose only on the day you do not have a bowel movement. Liver failure will continue to be a problem as long as you keep on drinking. I am asking you get 1 more time to abstain from any and all alcohol products. Forever. The alcohol abuse has affected your bowels ability to process folic acid and the B vitamins. So please make sure you take a vitamin every day as well as thiamine 100 mg daily. Please see your primary care provider in the next 1 to 2 weeks. Your blood work needs to be done about every 3 to 4 weeks to make sure your liver is improving, and that your potassium is staying stable. I am giving you a lab order slip for you to get your blood drawn. Your primary care provider office should follow-up on that lab work. When you see your primary care provider, please ask if he could be referred to a liver specialist. [place] going to be the same distance with the [facility], or [facility]. Or travel north to [place] for [facility]. Care Goals: To hopefully have your liver slowly recover over time. So that you can stop having problems with cirrhosis, fluid retention and abdominal pain. The first goal, however, is to remain off alcohol for the rest of his life Assessment: Patient is alert, oriented to person place and time. Has some psychomotor slowing No Smoking: If you smoke, Please STOP! Call for help.
--- NOTE | 2022-11-13 11:17 | DISCHARGE SUMMARY ---
"Discharge Summary Admit Date: 11/07/22 Discharge Date: 11/13/22 Discharging Provider: Armida Espinoza MD Primary Care Provider: [facility] Code Status: Attempt Resuscitation Condition at Discharge: Poor Discharge Disposition: 01 Home, Self Care - DIAGNOSES Discharge Diagnoses with Status of Each Condition: 1. Abdominal pain due to ascites 2. Chronic liver failure without hepatic coma 3. Alcoholic cirrhosis 4. Alcohol dependence with withdrawal 5. GI bleed - HPI History of Present Illness: 32 yo M with h/o ETOH abuse with h/o ETOH W/D, alcoholic Hepatitis, Hyperthyroidism, GERD/Gastritis, Depression, Tobacco abuse presented to the ER via EMS for increased abdominal distension/pain, Shortness of breath, hematemesis. Pt has been hospitalized every month x 6 months when he started drinking heavily after a relationship and a job loss. He was last hospitalized from 10/23-11/01 for abdominal pain/distension and bloody emesis. Pt had EGD done on 10/23/22 which showed gastric erosion, non-bleeding esophageal varices. He was started on A/Bs for possible SBP. Paracentesis done improved his symptoms, was negative for SBP. Pt reports feeling much improved after paracentesis at recent hospitalization. Upon discharge, he noted that his abdo was less distended/uncomfortable. He continued to have B/L swollen feet. In the past week, his abdomen slowly distended again and it is now very uncomfortable and causing him to have shortness of breath, no chest pain. Pt was referred to therapist, Psychiatrist, but has not made appointments. He says that he would like to stop ETOH use. However, at home, he did drink vodka again, yesterday. He reports drinking 350 ml of vodka yesterday AM. He says that he did not drink the other days b/c his abdomen was uncomfortable. He has not been able to drink much other fluids or eat d/t abdomen discomfort. Pt continues to smoke 1/2 ppd. He does not take Librium or other ETOH deterrants. Today, he began to have nausea with dry heaves. After multiple dry heavings, he began to throw up small amounts of blood. He did this 9-10x before calling EMS. He measured his latest bloody emesis in the ER: it is 16 ml. He says that his previous emeses were of similar amount. No F/C. No redness of abdo. No CP/cough/Dizziness. No black or bloody stool. In the ER, WBC 20.8, INR 1.7, Ca 7.9, Mg 1.5, Bili 3.9, AST 75, ETOH: 81.3. Pt was given Octreotide, Dilaudid, Protonix, Rocephin and Librium in the ER. - Past Medical History Cardiovascular: reports: None Respiratory: reports: None Neuro: reports: None Endocrine/Autoimmune: reports: None GI: reports: GERD, Esophageal varices, GI bleed, Pancreatitis, Cirrhosis : reports: None HEENT: reports: None Psych: reports: Depression Musculoskeletal: reports: None Derm: reports: None MRSA Hx?: No - Past Surgical History General: reports: EGD - CONSULTS | PROCEDURES Procedures: Ultrasound-guided paracentesis, 4 L removed, November 12 - HOSPITAL COURSE Hospital Course: (1) Abdominal pain Secondary to alcoholic cirrhosis with ascites causing distension of abd wall. Patient had paracentesis 3600 mils removed on October 25, 2022. Patient is on Rocephin and Flagyl per admitting physician due to worry about spontaneous bacterial peritonitis. He was continued on home medications of Lasix 40 mg daily and spironolactone 100 mg daily and lactulose. But he is having >3 stools a day so hasn't had lactulose. Unfortunately, the day he was admitted, there is no interventional radiology available. We had to wait. He finally underwent therapeutic paracentesis on November 13. 4 L was removed. His main complaint was now the trophic strain on his scrotum from his scrotal edema. His abdominal pain improved tremendously with the 4 L being removed. I spoke to urology who stated that he either needed a jockstrap or something that the patient could Jagdish rig himself to elevate his testicles. Urology stated that, regretfully, there is no special TRUS for this.I would also recommend that he be set up for serial paracentesis. Primary care provider could set this up for the outpatient setting in the [facility] [place] and can be done every 2 to 4 weeks. (2) GIB (gastrointestinal bleeding) Assessment/Plan: Patient did vomit some blood. Patient was scoped recent visit and was not found to have any bleeding esophageal varices on October 23. EGD showed gastric erosion nonbleeding esophageal varices. Patient was initiated on octreotide and Protonix in the emergency room since he was likely still oozing. There was no melena or hematochezia. He is not a candidate for octreotide at this current moment. We monitored and transfused when drops below 7. Hemoglobin hematocrit every 6 hours ordered at admission. He was transfused 2 units during his stay. At discharge hemoglobin was 7.1. His admission was 7.8. I would recommend that his CBC be checked every 2 weeks. Transfuse electively in the outpatient setting through the [facility] [place] [facility]. (3) Alcohol withdrawal Qualifiers: Complication of substance-induced condition: uncomplicated Qualified Code(s): F10.930 - Alcohol use, unspecified with withdrawal, uncomplicated Assessment/Plan: Had mild withdrawal on admission. He initially stated that he was not drinking except once. He really did not require CIWA protocol. Was treated with vitamins, and thiamine. 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 He says he only had 1 beer but alcohol level would indicate he may have had 4-6 based on his weight. All I can do is remind him that he has a lethal illness. He could survive if given enough time and if he did not abuse alcohol. But if he continues to be his alcohol he may not be with this in the next couple of years. He was discharged in stable condition. But a poor prognosis. I really stressed to him that he cannot drink at all. He does not want to go to any rehab. He does not want to go to AA. Social work gave him lots of literature on different opportunities to get himself clean and sober. Temperature is 37 degrees. Heart rate 114. Blood pressure 132/74. Respirations 20. 93% on room air. He is a chronically ill-appearing young male with a thick head of hair and thick rosario. He is very proud of his rosario. He is 5 foot 11 inches tall, 117.5 kg. Although bilirubin is only 2.4 at discharge, he does appear jaundiced and icteric. Shotty neck adenopathy but a supple neck. Diminished breath sounds at the bases, almost no breath sounds at the bases, but otherwise clear without crackles rhonchi or wheezing. He is not tachypneic but noticeably fatigued with simple exertion. Regular rate and rhythm. And abdomen that is still distended, fluid wave no longer palpable, tenderness diffusely that is mild. No rebound or guarding. He has daily diarrhea and as such does not want to take his lactulose. Extremities still have trace edema. Scrotum is quite edematous. Neurologically he is oriented to person, place, situation. No tremors. Just diffuse fatigue. No ataxia.I am urging him to make sure that he follows up with his primary care provider. Not so much because he is going to get care through his office but because he needs to be referred to a liver specialist for end- stage liver disease. Mr. Hurt is promises to follow through. He says that he goes to the [facility] in [place]. He has seen 3 different providers for the times he was there. I have asked JOSIAS diaz if it was okay if I used her name on this discharge summary for her to follow through with this patient and she said yes Greater than 30 minutes was spent coordinating discharge This document was made in part using voice recognition software. While efforts are made to proofread this document, sound alike and grammatical errors may occur. - ALLERGIES Allergies/Adverse Reactions: Allergies Allergy/AdvReac Type Severity Reaction Status Date / Time No Known Drug Allergies Allergy Verified 11/07/22 21:07 - MEDICATIONS Home Medications: Ambulatory Orders Medication Instructions Recorded Confirmed Omeprazole Magnesium 20 mg PO QDAC 07/02/22 11/08/22 Metoprolol Succinate [Toprol Xl] 50 mg PO DAILY #30 tab 08/28/22 11/08/22 Potassium Chloride [Micro-K] 30 meq PO BIDWM #60 cap 10/15/22 11/08/22 Sertraline [Zoloft] 50 mg PO DAILY #60 tab 10/15/22 11/08/22 Multivitamin [Theragran] 1 tab PO DAILY 10/23/22 11/08/22 Furosemide [Lasix] 20 mg PO DAILY #30 tablet 11/01/22 11/08/22 Lactulose 15 ml PO DAILY PRN #30 ea 11/01/22 11/08/22 Thiamine [Vitamin B-1] 100 mg PO DAILY tab 11/01/22 11/08/22 Calcium Carbonate [Tums (Calcium 500 mg PO BID tab 11/13/22 Carbonate 500mg)] Magnesium Oxide [Mag Ox] 400 mg PO BID #60 tab 11/13/22 Pnv No.121/Iron/Folic Acid 1 each PO DAILY #100 tablet 11/13/22 [ Multivitamin Tablet] Spironolactone [Aldactone] 100 mg PO DAILY #120 tab 11/13/22 oxyCODONE [Roxicodone] 5 mg PO Q4HR PRN #30 tab 11/13/22 - LABS Result Diagrams: 11/13/22 05:16 11/13/22 05:16"
[2022-11-13 12:02] VITALS: BP 132/74
== END 2022-11-13 12:15 | disposition home or self-care (01) | DRG 433 ==
LOC: EDUNIT# → ED 20:58 → ICU 23:12 → MS2 11-12 19:57
PROVIDERS: ADMIT Internal Medicine; ATTEND Specialist
PROC: 30233N1 Transfusion of Nonautologous Red Blood Cells into Peripheral Vein, Percutaneous Approach (ICD-10-PCS; 2022-11-09)
PROC: 0W9G3ZZ Drainage of Peritoneal Cavity, Percutaneous Approach (ICD-10-PCS; principal; 2022-11-12)
DX: K70.31 Alcoholic cirrhosis of liver with ascites (principal); F10.230 Alcohol dependence with withdrawal, uncomplicated; K92.0 Hematemesis; I85.10 Secondary esophageal varices without bleeding; F17.200 Nicotine dependence, unspecified, uncomplicated; F32.A Depression, unspecified; N50.89 Other specified disorders of the male genital organs; K70.40 Alcoholic hepatic failure without coma; D72.829 Elevated white blood cell count, unspecified; D64.9 Anemia, unspecified; K25.9 Gastric ulcer, unspecified as acute or chronic, without hemorrhage or perforation; E83.51 Hypocalcemia; E83.42 Hypomagnesemia; Z56.0 Unemployment, unspecified; Z79.899 Other long term (current) drug therapy
CPT/HCPCS: 36415; 49083; 71101; 76705; 80053; 80320; 82140; 82330; 82746; 83690; 83735; 84100; 84132; 85014; 85018; 85025; 85610; 85730; 86850; 86900; 86901; 86920; 87150; 96374; 96375; 99285; A9270; J1170; J2354; P9016; Q0162

== ENCOUNTER 2022-11-18 12:03 | Outpatient (CLI) | payer MEDICAID | END 2022-11-18 23:59 | disposition critical access hospital (66) | LOC: EMS 12:03 | DX: R10.84 Generalized abdominal pain (principal); R14.0 Abdominal distension (gaseous); R06.02 Shortness of breath | CPT/HCPCS: A0425; A0427; A0999 ==

== ENCOUNTER 2022-11-18 12:32 | Emergency (ER) | payer MEDICAID ==
[2022-11-18 12:50] LABS: BASOPHILS # (AUTO) 0.1 10^3/uL (0.0-0.1); BASOPHILS % (AUTO) 0.5 %; EOSINOPHILS # (AUTO) 0.2 10^3/uL (0.0-0.7); EOSINOPHILS % (AUTO) 1.4 %; HCT - HEMATOCRIT 22.8 % (42.0-52.0); HGB - HEMOGLOBIN 7.5 g/dL (14.0-18.0); LYMPHOCYTES # (AUTO) 1.8 10^3/uL (1.5-3.5); MEAN CORPUSCULAR HEMOGLOBIN 31.5 pg (27.0-31.0); MEAN CORPUSCULAR HGB CONC 32.9 g/dL (32.0-36.0); MEAN CORPUSCULAR VOLUME 95.8 fL (80.0-94.0); MONOCYTES # (AUTO) 1.4 10^3/uL (0.0-1.0); MONOCYTES % (AUTO) 11.6 %; NEUTROPHILS # (AUTO) 8.6 10^3/uL (1.5-6.6); NEUTROPHILS % (AUTO) 70.9 %; PLT - PLATELET COUNT 196 10^3/uL (130-450); RED BLOOD COUNT 2.38 10^6/uL (4.70-6.10); RED CELL DISTRIBUTION WIDTH 21.3 % (12.0-15.0); WHITE BLOOD COUNT 12.1 x10^3/uL (4.8-10.8)
[2022-11-18] MEDS ORDERED: HYDROmorphone 1 MG/ML CARPUJECT IVP STA (13:07)
[2022-11-18 13:10] LABS: INR 1.6 (0.8-1.2)
[2022-11-18 13:21] LABS: ALBUMIN 2.4 g/dL (3.2-5.5)
[2022-11-18 13:51] LABS: ALBUMIN/GLOBULIN RATIO 0.8 (1.0-2.2); CREATININE 0.5 mg/dL (0.6-1.3); POTASSIUM 3.6 mmol/L (3.5-4.5); TOTAL PROTEIN 5.6 g/dL (6.4-8.9)
--- NOTE | 2022-11-18 14:52 | XRAY Report ---
PROCEDURE: Chest 1 View X-Ray INDICATIONS: sob TECHNIQUE: One view of the chest was acquired. COMPARISON: 10/22/2022 FINDINGS: Surgical changes and devices: None. Lungs and pleura: Diffuse interstitial prominence. Central vascular congestion and perihilar airway thickening. No focal consolidation. No pneumothorax or pleural effusion. Mediastinum: Mediastinal contours appear normal. Heart size is stable. Bones and chest wall: No suspicious bony lesions. Overlying soft tissues appear unremarkable. IMPRESSION: Diffuse interstitial prominence, central vascular congestion with perihilar airway thickening suggest nissa of an inflammatory or infectious process. Mild pulmonary edema/CHF may have a similar appearance if clinically appropriate. No focal consolidation. Recommend follow-up chest radiograph 4-6 weeks after treatment to document resolution of findings and /or return to baseline exam. Reviewed by: Jay Tesfaye MD on 11/18/2022 2:51 PM PDT Approved by: Jay Tesfaye MD on 11/18/2022 2:51 PM PDT Station ID: [id number]
--- NOTE | 2022-11-18 15:19 | ED Physician Documentation ---
History of Present Illness - Stated complaint Stated Complaint: ABD PX - Chief complaint Chief Complaint: General - History obtained from History obtained from: Patient - Additonal information Additional information: The patient comes to the emergency department chief complaint of increased abdominal girth and difficulty breathing. Has a history of hepatic cirrhosis from alcoholism and has had a couple of taps recently. He states that he is very uncomfortable, and would like another paracentesis if possible. No fevers or chills. No abdominal pain beyond just the discomfort of being so distended. No other complaints at this time. PD PAST MEDICAL HISTORY - Past Medical History Cardiovascular: None Respiratory: None Neuro: None Endocrine/Autoimmune: None GI: GERD, Esophageal varices, GI bleed, Pancreatitis, Cirrhosis : None HEENT: None Psych: Depression Musculoskeletal: None Derm: None - Past Surgical History Past Surgical History: No General: EGD - Present Medications Home Medications: Ambulatory Orders Medication Instructions Recorded Confirmed Omeprazole Magnesium 20 mg PO QDAC 07/02/22 11/23/22 Multivitamin [Theragran] 1 tab PO DAILY 10/23/22 11/23/22 Furosemide [Lasix] 20 mg PO DAILY #30 tablet 11/01/22 11/23/22 Lactulose 15 ml PO DAILY PRN #30 ea 11/01/22 11/23/22 Thiamine [Vitamin B-1] 100 mg PO DAILY tab 11/01/22 11/23/22 Calcium Carbonate [Tums (Calcium 500 mg PO BID tab 11/13/22 11/23/22 Carbonate 500mg)] Spironolactone [Aldactone] 100 mg PO DAILY #120 tab 11/13/22 11/23/22 oxyCODONE [Roxicodone] 5 mg PO Q4HR PRN #30 tab 11/13/22 11/23/22 HYDROmorphone [Dilaudid] 2 mg PO Q6H PRN #10 tablet 11/23/22 Ibuprofen [Ibu-200] 3 tab PO DAILY PRN 11/23/22 11/23/22 Magnesium Oxide 1 tab PO DAILY 11/23/22 11/23/22 Metoprolol Succinate [Toprol Xl] 50 mg PO DAILY #30 tab 11/23/22 Potassium Chloride 3 cap PO DAILY 11/23/22 11/23/22 Sertraline [Zoloft] 50 mg PO DAILY #60 tab 11/23/22 oxyCODONE [Roxicodone] 5 - 10 mg PO Q4HR PRN #10 tab 11/23/22 - Allergies Allergies/Adverse Reactions: Allergies Allergy/AdvReac Type Severity Reaction Status Date / Time No Known Drug Allergies Allergy Verified 11/07/22 21:07 - Social History Does the pt smoke?: Yes Smoking Status: Current every day smoker Does the pt drink ETOH?: Yes Does the pt have substance abuse?: Yes - Immunizations Immunizations are current?: Yes - POLST Patient has POLST: No PD ED PE NORMAL - Vitals Vital signs reviewed: Yes - General General: Alert and oriented X 3, No acute distress, Other (The patient appears disheveled and chronically ill.) - HEENT HEENT: Atraumatic, PERRL, EOMI, Moist mucous membranes - Neck Neck: Supple, no meningeal sign - Cardiac Cardiac: RRR, No murmur, Strong equal pulses - Respiratory Respiratory: No respiratory distress, Clear bilaterally - Abdomen Abdomen: Other (Markedly distended, fluid-filled abdomen consistent with ascites. No rebound or guarding. Mild diffuse tenderness.) - Derm Derm: Warm and dry, Other (Moderate pallor) - Extremities Extremities: No deformity, Other (Moderate bilateral lower extremity edema.) - Neuro Neuro: Alert and oriented X 3 - Psych Psych: Normal mood, Normal affect Results - Vitals Vitals: Oxygen O2 Source Nasal cannula - Labs Labs: Laboratory Tests 11/18/22 11/18/22 11/18/22 12:45 12:45 12:45 WBC 12.1 H RBC 2.38 L Hgb 7.5 L Hct 22.8 L MCV 95.8 H MCH 31.5 H MCHC 32.9 RDW 21.3 H Plt Count 196 MPV 10.0 Neut # (Auto) 8.6 H Lymph # (Auto) 1.8 Moore # (Auto) 1.4 H Eos # (Auto) 0.2 Baso # (Auto) 0.1 Absolute Nucleated RBC 0.00 Nucleated RBC % 0.0 PT 17.0 H INR 1.6 H Sodium 134 L Potassium 3.6 Chloride 99 L Carbon Dioxide 30 Anion Gap 5.0 L BUN 11 Creatinine 0.5 L Estimated GFR (MDRD) 194 Glucose 113 H Calcium 8.0 L Magnesium Total Bilirubin 2.0 H AST 51 H ALT 17 Alkaline Phosphatase 147 H Total Protein 5.6 L Albumin 2.4 L Globulin 3.2 Albumin/Globulin Ratio 0.8 L Lipase 33 11/18/22 12:45 WBC RBC Hgb Hct MCV MCH MCHC RDW Plt Count MPV Neut # (Auto) Lymph # (Auto) Moore # (Auto) Eos # (Auto) Baso # (Auto) Absolute Nucleated RBC Nucleated RBC % PT INR Sodium Potassium Chloride Carbon Dioxide Anion Gap BUN Creatinine Estimated GFR (MDRD) Glucose Calcium Magnesium 1.3 L Total Bilirubin AST ALT Alkaline Phosphatase Total Protein Albumin Globulin Albumin/Globulin Ratio Lipase Procedures - Paracentesis - Major Preparation: Consent obtained, Sterile prep and drape, Local anesthesia Location: LLQ Technique: Catheter over needle Fluid: Clear, Volume - enter cc ([id number]) Aftercare: No complications, Patient tolerated well, Dressing applied PD Medical Decision Making - ED course Complexity details: reviewed old records, reviewed results, re-evaluated patient, considered differential, d/w patient ED course: Paracentesis was performed as above, with a very large amount of fluid removed from the patient's abdomen. Patient reported feeling much better. His oxygen saturation had initially been in the upper 80s, but now sandra into the mid 90s. I felt the patient was stable for discharge home. We have discussed the need for follow-up as well as the usual indications for return. Departure - Departure Disposition: 01 Home, Self Care Clinical Impression: Ascites Condition: Stable Instructions: Paracentesis Dc Comments: We have drained nearly 10 L of fluid out of your abdominal cavity today. You have been treated with IV fluids to help avoid significant shift of fluid out of your cardiovascular system in response to this. Your laboratory studies are more or less at baseline for you. You should continue your plans to follow-up with your primary care provider. Please speak with them about further pain control and also, about whether having some as needed oxygen at home would be a good plan for you. A prescription for your pain medicine has been electronically transmitted to the [facility] in [place] Forms: PCP List Discharge Date/Time: 11/18/22 16:16
[2022-11-18] MEDS ORDERED: oxyCODONE 5 MG TABLET PO STA (15:25)
[2022-11-18 16:22] VITALS: BP 116/59; O2SAT 94
== END 2022-11-18 16:16 | disposition home or self-care (01) ==
LOC: EDUNIT# → ED 12:32
DX: R18.8 Other ascites (principal); F17.200 Nicotine dependence, unspecified, uncomplicated
CPT/HCPCS: 36415; 49082; 71045; 80053; 83690; 83735; 85025; 85610; 96374; 99284; A9270; J1170

== ENCOUNTER 2022-11-22 10:10 | Outpatient (CLI) | payer MEDICAID | END 2022-11-22 23:59 | disposition critical access hospital (66) | LOC: EMS 10:10 | DX: R18.8 Other ascites (principal); R10.84 Generalized abdominal pain; R06.02 Shortness of breath; R11.0 Nausea; R50.9 Fever, unspecified | CPT/HCPCS: A0425; A0429; A0999 ==

== ENCOUNTER 2022-11-22 10:38 | Observation (INO) | payer MEDICAID ==
[2022-11-22 11:09] LABS: BASOPHILS # (AUTO) 0.1 10^3/uL (0.0-0.1); BASOPHILS % (AUTO) 0.4 %; EOSINOPHILS # (AUTO) 0.1 10^3/uL (0.0-0.7); EOSINOPHILS % (AUTO) 0.6 %; HCT - HEMATOCRIT 24.8 % (42.0-52.0); LYMPHOCYTES # (AUTO) 1.5 10^3/uL (1.5-3.5); LYMPHOCYTES % (AUTO) 11.2 %; MEAN CORPUSCULAR HEMOGLOBIN 30.4 pg (27.0-31.0); MEAN CORPUSCULAR HGB CONC 32.3 g/dL (32.0-36.0); MEAN CORPUSCULAR VOLUME 94.3 fL (80.0-94.0); MEAN PLATELET VOLUME 10.3 fL (7.4-11.4); MONOCYTES # (AUTO) 1.2 10^3/uL (0.0-1.0); MONOCYTES % (AUTO) 8.7 %; NEUTROPHILS # (AUTO) 10.5 10^3/uL (1.5-6.6); NEUTROPHILS % (AUTO) 78.7 %; PLT - PLATELET COUNT 225 10^3/uL (130-450); RED BLOOD COUNT 2.63 10^6/uL (4.70-6.10); RED CELL DISTRIBUTION WIDTH 20.9 % (12.0-15.0); WHITE BLOOD COUNT 13.4 x10^3/uL (4.8-10.8)
[2022-11-22 11:11] LABS: SLIDE REVIEW? Indicated
[2022-11-22 11:16] LABS: INR 1.5 (0.8-1.2); PT - PROTHROMBIN TIME 16.7 secs (9.9-12.6)
[2022-11-22 11:23] LABS: ALBUMIN 2.3 g/dL (3.2-5.5); ALBUMIN/GLOBULIN RATIO 0.7 (1.0-2.2); ALKALINE PHOSPHATASE 144 IU/L (42-121); ALT ALANINE AMINOTRANSFERASE 19 IU/L (10-60); AST ASPARTATE AMINOTRANSFERASE 64 IU/L (10-42); BILIRUBIN,TOTAL 1.7 mg/dL (0.2-1.0); BUN - BLOOD UREA NITROGEN 9 mg/dL (6-20); CARBON DIOXIDE - CO2 29 mmol/L (21-32); CHLORIDE 98 mmol/L (101-111); CREATININE 0.6 mg/dL (0.6-1.3); ETOH - ETHANOL < 10.0 mg/dL; GFR - MDRD 157 (>89); GLUCOSE 107 mg/dL (74-104); LIPASE 24 U/L (11-82); MAGNESIUM 1.4 mg/dL (1.7-2.3); POTASSIUM 3.6 mmol/L (3.5-4.5); SODIUM 132 mmol/L (135-145); TOTAL PROTEIN 5.7 g/dL (6.4-8.9)
[2022-11-22 11:26] LABS: PLATELET ESTIMATE, MANUAL NORMAL (130-450,000) (NORMAL); PLATELET MORPHOLOGY NORMAL APPEARANCE (NORMAL)
--- NOTE | 2022-11-22 11:36 | ED Physician Documentation ---
PD HPI ABD PAIN - Stated complaint Stated Complaint: ABD PX - Chief complaint Chief Complaint: Abd Pain - History obtained from History obtained from: Patient - Additional information Additional information: 32-year-old gentleman with alcoholic cirrhosis, history of varices. Last drink about a week and a half ago. He presents for symptomatic ascites with shortness of breath. Tense abdomen and wanting a paracentesis. Last paracentesis was 5 days ago. States he has been compliant with diuretics. He also notes dark red bloody diarrhea starting last night. PD PAST MEDICAL HISTORY - Past Medical History Cardiovascular: None Respiratory: None Neuro: None Endocrine/Autoimmune: None GI: GERD, Esophageal varices, GI bleed, Pancreatitis, Cirrhosis : None HEENT: None Psych: Depression Musculoskeletal: None Derm: None - Past Surgical History Past Surgical History: No General: EGD - Present Medications Home Medications: Ambulatory Orders Medication Instructions Recorded Confirmed Omeprazole Magnesium 20 mg PO QDAC 07/02/22 11/08/22 Metoprolol Succinate [Toprol Xl] 50 mg PO DAILY #30 tab 08/28/22 11/08/22 Potassium Chloride [Micro-K] 30 meq PO BIDWM #60 cap 10/15/22 11/08/22 Sertraline [Zoloft] 50 mg PO DAILY #60 tab 10/15/22 11/08/22 Multivitamin [Theragran] 1 tab PO DAILY 10/23/22 11/08/22 Furosemide [Lasix] 20 mg PO DAILY #30 tablet 11/01/22 11/08/22 Lactulose 15 ml PO DAILY PRN #30 ea 11/01/22 11/08/22 Thiamine [Vitamin B-1] 100 mg PO DAILY tab 11/01/22 11/08/22 Calcium Carbonate [Tums (Calcium 500 mg PO BID tab 11/13/22 Carbonate 500mg)] Magnesium Oxide [Mag Ox] 400 mg PO BID #60 tab 11/13/22 Pnv No.121/Iron/Folic Acid 1 each PO DAILY #100 tablet 11/13/22 [ Multivitamin Tablet] Spironolactone [Aldactone] 100 mg PO DAILY #120 tab 11/13/22 oxyCODONE [Roxicodone] 5 mg PO Q4HR PRN #30 tab 11/13/22 oxyCODONE [Roxicodone] 5 mg PO Q4-6H PRN #14 tablet 11/18/22 - Allergies Allergies/Adverse Reactions: Allergies Allergy/AdvReac Type Severity Reaction Status Date / Time No Known Drug Allergies Allergy Verified 11/07/22 21:07 - Social History Does the pt smoke?: Yes Smoking Status: Current every day smoker Does the pt drink ETOH?: Yes Does the pt have substance abuse?: Yes - Immunizations Immunizations are current?: Yes - POLST Patient has POLST: No PD ED PE NORMAL - Vitals Vital signs reviewed: Yes - General General: Alert and oriented X 3, No acute distress - HEENT HEENT: Other (Mildly jaundiced) - Abdomen Abdomen: Other (Tense ascites without tenderness) - Extremities Extremities: Other (2+ pitting pedal edema, symmetric) - Neuro Neuro: Alert and oriented X 3, Normal speech Results - Vitals Vitals: Vital Signs - 24 hr 11/22/22 11/22/22 11/22/22 10:43 12:00 12:07 Temperature 37.1 C Heart Rate 110 H 101 H 99 Respiratory 24 15 Rate Blood Pressure 128/81 H 113/76 117/65 O2 Saturation 92 94 95 If not protocol 2 : Oxygen Flow, liters/minute 11/22/22 11/22/22 11/22/22 12:12 12:18 12:23 Temperature Heart Rate 102 H 101 H 96 Respiratory 19 15 Rate Blood Pressure 99/61 114/67 110/60 O2 Saturation 97 96 If not protocol 2 1 : Oxygen Flow, liters/minute 11/22/22 11/22/22 12:28 13:07 Temperature Heart Rate 97 103 H Respiratory 15 15 Rate Blood Pressure 110/64 103/59 L O2 Saturation 97 90 L If not protocol : Oxygen Flow, liters/minute Oxygen O2 Source Room air - Labs Labs: Microbiology 11/22/22 12:36 Body Fluid Culture - Preliminary Ascities Fluid Laboratory Tests 11/22/22 11/22/22 11/22/22 11:02 11:02 11:02 WBC 13.4 H RBC 2.63 L Hgb 8.0 L Hct 24.8 L MCV 94.3 H MCH 30.4 MCHC 32.3 RDW 20.9 H Plt Count 225 MPV 10.3 Neut # (Auto) 10.5 H Lymph # (Auto) 1.5 Stanton # (Auto) 1.2 H Eos # (Auto) 0.1 Baso # (Auto) 0.1 Absolute Nucleated RBC 0.00 Nucleated RBC % 0.0 Manual Slide Review Indicated Platelet Estimate NORMAL (130-450,000) Platelet Morphology NORMAL APPEARANCE RBC Morph Micro Appear 2+ ANISOCYTOSIS PT 16.7 H INR 1.5 H Sodium Potassium Chloride Carbon Dioxide Anion Gap BUN Creatinine Estimated GFR (MDRD) Glucose Calcium Magnesium Total Bilirubin AST ALT Alkaline Phosphatase Total Protein Albumin Globulin Albumin/Globulin Ratio Lipase Fluid Source Fluid Color Fluid Clarity Fluid WBC Fluid RBC Fluid Neutrophils % Fluid Lymphocytes % Fluid Macrophages % Ethyl Alcohol Blood Type O POSITIVE Antibody Screen NEGATIVE 11/22/22 11/22/22 11/22/22 11:02 12:36 15:57 WBC RBC Hgb 7.2 L Hct 22.1 L MCV MCH MCHC RDW Plt Count MPV Neut # (Auto) Lymph # (Auto) Stanton # (Auto) Eos # (Auto) Baso # (Auto) Absolute Nucleated RBC Nucleated RBC % Manual Slide Review Platelet Estimate Platelet Morphology RBC Morph Micro Appear PT INR Sodium 132 L Potassium 3.6 Chloride 98 L Carbon Dioxide 29 Anion Gap 5.0 L BUN 9 Creatinine 0.6 Estimated GFR (MDRD) 157 Glucose 107 H Calcium 8.0 L Magnesium 1.4 L Total Bilirubin 1.7 H AST 64 H ALT 19 Alkaline Phosphatase 144 H Total Protein 5.7 L Albumin 2.3 L Globulin 3.4 Albumin/Globulin Ratio 0.7 L Lipase 24 Fluid Source PERITONEAL Fluid Color YELLOW Fluid Clarity CLEAR Fluid WBC 112 Fluid RBC 3000 Fluid Neutrophils % 13 Fluid Lymphocytes % 17 Fluid Macrophages % 67 Ethyl Alcohol < 10.0 Blood Type Antibody Screen - Rads (name of study) Single view chest x-ray shows improving interstitial infiltrates, nearly resolved from prior. Relevant Findings:: Final report received, EMP independent interpretation of test Procedures - Paracentesis - Major Preparation: Consent obtained, Local anesthesia Location: RLQ Technique: Z-tract, Catheter over needle Fluid: Clear, Sent for cell count, Sent for gram stain, Sent for culture, Volume - enter cc (10 liters) Aftercare: No complications PD Medical Decision Making - ED course ED course: CBC reviewed with normal white counts, hemoglobin is 8 which is actually the best its been for quite some time. INR 1.5, also improved from prior. CMP reviewed and showing modest chronic hyponatremia, mild hypocalcemia and h ypomagnesemia. Blood alcohol level negative. This is a young man with unfortunately pretty severe alcoholic cirrhosis presenting requesting a paracentesis. Has had bloody diarrhea since last night, his H&H though is stable from priors. Paracentesis was done with 10 L total. Sent to the lab but low pretest probability for SBP. Magnesium was supplemented intravenously and also given some albumin. Given some oral calcium. Given the bleeding, decision to admit was made at 12 PM, but no beds are available in the hospital at this time and he will be boarding in the emergency department with serial labs and inpatient level of care. He was hypoxemic on arrival, per the nurse in the high 80s on room air and required supplemental oxygen. This was felt to be most likely due to just the ascites causing low lung volumes and his oxygen requirement did decrease after the paracentesis but will check a chest x-ray as well. A bed did open up and I was able to present the case to Dr. Bailon at 4:14 PM. Departure - Departure Disposition: ED Place in Observation Clinical Impression: Anemia due to GI blood loss, Alcoholic cirrhosis, Ascites Condition: Serious Forms: PCP List
[2022-11-22] MEDS ORDERED: HYDROmorphone 1 MG/ML CARPUJECT IVP STA (11:37)
[2022-11-22] MEDS ORDERED: LIDOCAINE 1%-EPI 1:100000 20 ML MDV SUBQ STA (11:38)
[2022-11-22] MEDS ORDERED: ONDANSETRON 4 MG/2 ML VIAL IVP STA (11:39)
[2022-11-22] MEDS ORDERED: MAGNESIUM SULFATE 2 GRAM 2 GM/50 ML BAG IV ONE (12:30)
[2022-11-22] MEDS ORDERED: CALCIUM CARBONATE CHEW 500 MG TABLET PO STA (12:30)
[2022-11-22] MEDS ORDERED: ALBUMIN 25% 12.5 GM/50 ML VIAL IV STA ×2 (12:31→14:12)
[2022-11-22] MEDS ORDERED: ONDANSETRON 4 MG/2 ML VIAL IVP PRN ×2 (12:33→16:25)
[2022-11-22] MEDS ORDERED: ACETAMINOPHEN 500 MG TABLET PO PRN (12:33)
[2022-11-22] MEDS ORDERED: oxyCODONE 5 MG TABLET PO PRN (12:34)
[2022-11-22] MEDS ORDERED: POTASSIUM CHLORIDE 20 MEQ TABLET PO SCH (13:00)
[2022-11-22] MEDS ORDERED: FUROSEMIDE 20 MG TABLET PO SCH (13:00)
[2022-11-22] MEDS ORDERED: THIAMINE 100 MG TABLET PO SCH (13:00)
--- NOTE | 2022-11-22 13:15 | XRAY Report ---
PROCEDURE: Chest 1 View X-Ray INDICATIONS: hypoxemia TECHNIQUE: One view of the chest was acquired. COMPARISON: 11/18/2022. FINDINGS: Surgical changes and devices: None. Lungs and pleura: Improving interstitial infiltrates, nearly completely resolved. No focal infiltrat e or pleural effusion. Mediastinum: Mediastinal contours appear normal. Heart size is normal. Bones and chest wall: No suspicious bony lesions. Overlying soft tissues appear unremarkable. IMPRESSION: Improving interstitial infiltrates, nearly completely resolved. Reviewed by: Elie Yañez MD on 11/22/2022 1:13 PM PDT Approved by: Elie Yañez MD on 11/22/2022 1:13 PM PDT Station ID: [id number]
[2022-11-22] MEDS ORDERED: PROMETHAZINE INJ 25 MG in SODIUM CHLORIDE 0.9% 50 ML IV STA (13:48)
[2022-11-22 13:51] LABS: CC,BF RBC 3000 /mm^3; CC,BF WBC 112 /mm^3; LYMPHOCYTES %,BODY FLUID 17 %; MACROPHAGES %,BODY FLUID 67 %; NEUTROPHILS %, BF 13 %
[2022-11-22 13:52] LABS: BF SOURCE PERITONEAL
[2022-11-22 13:53] LABS: BF CLARITY CLEAR; BF COLOR YELLOW
[2022-11-22] MEDS ORDERED: CALCIUM CARBONATE CHEW 500 MG TABLET PO SCH (14:00)
[2022-11-22 16:01] LABS: HCT - HEMATOCRIT 22.1 % (42.0-52.0); HGB - HEMOGLOBIN 7.2 g/dL (14.0-18.0)
[2022-11-22] MEDS ORDERED: PROCHLORPERAZINE 10 MG/2 ML VIAL IVP PRN (16:25)
[2022-11-22] MEDS ORDERED: SODIUM CHLORIDE FLUSH 0.9% 10 ML SYRINGE IVP PRN (16:25)
--- NOTE | 2022-11-22 16:40 | HISTORY & PHYSICAL EXAMINATION ---
Chief Complaint - Chief Complaint Chief Complaint: Bloody diarrhea History of Present Illness - Admitted From Admitted From:: ED - History Obtained From History obtained from: ED provider and the patient - History of Present Illness HPI Comment/Other: This is a 32-year-old male with a history of alcohol abuse. He has had many admissions here in the past 4 months for alcohol withdrawal and complications from alcoholic cirrhosis with ascites including upper GI bleed. He also had colitis about 2 months ago not related to his alcoholism. At the last admission he was discharged about 2 weeks ago. He has not had a drink since that time he reports. He came to the ER 5 days ago with a tense abdomen and underwent paracentesis. The ascites has reaccumulated and he came in again today with pain from tense ascites. 10 L was removed. He had stable blood press ure, mildly tachycardic at 103 in sinus rhythm. He told the ED provider that he this morning had bloody diarrhea. His hemoglobin was 8. A repeat hemoglobin was 7.6. The ED provider called me and we discussed this patient. He will be placed in observation to monitor for any worsening bloody diarrhea and any decline in hemoglobin for needing a possible blood transfusion. History - Past Medical History Cardiovascular: reports: None Respiratory: reports: None Neuro: reports: None Endocrine/Autoimmune: reports: None GI: reports: GERD, Esophageal varices, GI bleed, Pancreatitis, Cirrhosis : reports: None HEENT: reports: None Psych: reports: Depression Musculoskeletal: reports: None Derm: reports: None MRSA Hx?: No - Past Surgical History General: reports: EGD - Family & Social History Family History Comment/Other: Smoker of 1/2 pack/day. Used to drink heavy alcohol. None in the past 10 days Living arrangement: At home Living Situation: With family - POLST Patient has POLST: No Meds/Allgy - Home Medications Home Medications: Ambulatory Orders Medication Instructions Recorded Confirmed Omeprazole Magnesium 20 mg PO QDAC 07/02/22 11/08/22 Metoprolol Succinate [Toprol Xl] 50 mg PO DAILY #30 tab 08/28/22 11/08/22 Potassium Chloride [Micro-K] 30 meq PO BIDWM #60 cap 10/15/22 11/08/22 Sertraline [Zoloft] 50 mg PO DAILY #60 tab 10/15/22 11/08/22 Multivitamin [Theragran] 1 tab PO DAILY 10/23/22 11/08/22 Furosemide [Lasix] 20 mg PO DAILY #30 tablet 11/01/22 11/08/22 Lactulose 15 ml PO DAILY PRN #30 ea 11/01/22 11/08/22 Thiamine [Vitamin B-1] 100 mg PO DAILY tab 11/01/22 11/08/22 Calcium Carbonate [Tums (Calcium 500 mg PO BID tab 11/13/22 Carbonate 500mg)] Magnesium Oxide [Mag Ox] 400 mg PO BID #60 tab 11/13/22 Pnv No.121/Iron/Folic Acid 1 each PO DAILY #100 tablet 11/13/22 [ Multivitamin Tablet] Spironolactone [Aldactone] 100 mg PO DAILY #120 tab 11/13/22 oxyCODONE [Roxicodone] 5 mg PO Q4HR PRN #30 tab 11/13/22 oxyCODONE [Roxicodone] 5 mg PO Q4-6H PRN #14 tablet 11/18/22 - Allergies Allergies/Adverse Reactions: Allergies Allergy/AdvReac Type Severity Reaction Status Date / Time No Known Drug Allergies Allergy Verified 11/07/22 21:07 Review of Systems - Constitutional Constitutional: reports: Fatigue, Weakness - Gastrointestinal Gastrointestinal: reports: Abdominal pain, Abdominal distention, Bloody stools - All Other Systems All Other Systems: reports: Reviewed and negative Exam - Vital Signs Reviewed Vital Signs: Yes Vital Signs: Vital Signs x48h Temp Pulse Resp BP Pulse Ox O2 Flow Rate 11/22/22 13:07 103 H 15 103/59 L 90 L 11/22/22 12:28 97 15 110/64 97 11/22/22 12:23 96 15 110/60 96 1 11/22/22 12:18 101 H 19 114/67 97 2 11/22/22 12:12 102 H 99/61 11/22/22 12:07 99 15 117/65 95 11/22/22 12:00 101 H 113/76 94 2 11/22/22 10:43 37.1 C 110 H 24 128/81 H 92 - Physical Exam General Appearance: positive: No acute distress Eyes Bilateral: positive: Normal inspection, No lid inflammation, Other (icteric) ENT: positive: No signs of dehydration Neck: positive: Nml inspection Respiratory: positive: No respiratory distress, Breath sounds nml Cardiovascular: positive: Regular rate & rhythm, No murmur Abdomen: positive: Non-tender, Other (Moderately distended, mildly tense, fluid wave present) Skin: positive: Warm, Dry Extremities: positive: Non-tender, Other (1+ edema) Conclusion/Plan - Problem List (1) Anemia due to GI blood loss Conclusion/Plan: Patient has a history of upper GI bleed about a month ago, underwent an EGD then that showed a gastric erosion and nonbleeding varices were present. This time he has bright red blood per rectum diarrhea. There is also a history of colitis from about a month ago but that was not bloody just painful crampy abdominal pain with diarrhea then. Plan: Will follow his hemoglobin every 6 hours We will transfuse if hemoglobin goes under 7 I will start the patient on iron supplements, if he is not already on this (2) Bloody diarrhea Conclusion/Plan: Since this patient is "auto-anticoagulated", INR is 1.5 due to his liver disease, there could be a bleeding hemorrhoid or an internal hemorrhoid that is the cause of this BRBPR Plan: As a #1 We will also consider general surgery consultation (3) Alcoholic cirrhosis of liver with ascites Conclusion/Plan: This patient has had many recent admissions for alcohol withdrawal and also for complications of his alcoholic cirrhosis with transaminitis and tense ascites, has needed paracenteses in the past. Today he had a 10 L paracentesis Plan: We will continue with incentive spirometry We will continue his usual liver medications including Spironolactone, Lasix, Thiamine - Lab Results Fish Bones: 11/23/22 05:00 11/23/22 05:00 - Diagnostic Imaging Results Diagnostic Imaging Results: positive: Final report reviewed
[2022-11-22] MEDS ORDERED: MAGNESIUM OXIDE 400 MG TABLET PO SCH (17:00)
[2022-11-22] MEDS: SODIUM CHLORIDE FLUSH 0.9% 10 ML SYRINGE IVP SCH ×2 (17:12→23:44)
[2022-11-22] MEDS ORDERED: CALCIUM CARBONATE CHEW 500 MG TABLET PO PRN (19:27)
[2022-11-22] MEDS: oxyCODONE 5 MG TABLET PO PRN (20:49)
[2022-11-22] MEDS: MAGNESIUM OXIDE 400 MG TABLET PO SCH (20:49)
[2022-11-23] MEDS: oxyCODONE 5 MG TABLET PO PRN ×2 (01:11→08:08)
[2022-11-23] MEDS ORDERED: GI COCKTAIL 120 ML BOTTLE PO ONE (03:22)
[2022-11-23] MEDS ORDERED: MORPHINE 10 MG/ML VIAL IVP STA (03:23)
--- NOTE | 2022-11-23 03:25 | PROVIDER PROGRESS NOTE ---
Hospitalist Cross-cover Note - Cross-Cover Note Cross-Cover Note: Consult Information Member Facility: [facility] Facility Requesting Clinician: Camden Rivera Patient Name: Hemanth Hurt Date of : 1990 Gender: Male Reason for Consult Reason for Consult: Other non-Emergent Clinical Note Clinical Note: per rn - "Dx: Anemia, Lower GI bleed. Hx: GERD, Esophageal varices, Alcoholic cirrhosis. Patient continues to complain of abdominal pain. He gets oxycodone 5mg prn and said it didn't help. Can he get additional pain medication please. Thanks." gi cocktail x 1 dose morphine x 1 dose
[2022-11-23 05:07] LABS: HCT - HEMATOCRIT 22.3 % (42.0-52.0); HGB - HEMOGLOBIN 7.2 g/dL (14.0-18.0); MEAN CORPUSCULAR HEMOGLOBIN 30.6 pg (27.0-31.0); MEAN CORPUSCULAR HGB CONC 32.3 g/dL (32.0-36.0); MEAN CORPUSCULAR VOLUME 94.9 fL (80.0-94.0); MEAN PLATELET VOLUME 9.9 fL (7.4-11.4); RED BLOOD COUNT 2.35 10^6/uL (4.70-6.10); RED CELL DISTRIBUTION WIDTH 20.6 % (12.0-15.0); WHITE BLOOD COUNT 10.6 x10^3/uL (4.8-10.8)
[2022-11-23 05:23] LABS: ALBUMIN/GLOBULIN RATIO 0.7 (1.0-2.2); BILIRUBIN,TOTAL 1.4 mg/dL (0.2-1.0); CALCIUM 7.6 mg/dL (8.5-10.3); CREATININE 0.5 mg/dL (0.6-1.3); POTASSIUM 3.7 mmol/L (3.5-4.5); TOTAL PROTEIN 4.9 g/dL (6.4-8.9)
[2022-11-23] MEDS ORDERED: PANTOPRAZOLE 40 MG TABLET PO SCH ×2 (07:00)
[2022-11-23] MEDS ORDERED: PRENATAL VITAMIN TABLET PO SCH ×2 (08:00→09:00)
[2022-11-23] MEDS: MAGNESIUM OXIDE 400 MG TABLET PO SCH (08:08)
[2022-11-23] MEDS: SODIUM CHLORIDE FLUSH 0.9% 10 ML SYRINGE IVP SCH (08:09)
[2022-11-23] MEDS ORDERED: SPIRONOLACTONE 25 MG TABLET PO SCH ×2 (09:00)
[2022-11-23] MEDS ORDERED: LACTULOSE 10 GM /15 ML UDC PO SCH (09:00)
[2022-11-23] MEDS ORDERED: THIAMINE 100 MG TABLET PO SCH (09:00)
[2022-11-23] MEDS ORDERED: FUROSEMIDE 20 MG TABLET PO SCH (09:00)
[2022-11-23] MEDS ORDERED: SERTRALINE 50 MG TABLET PO SCH (09:00)
[2022-11-23] MEDS ORDERED: METOPROLOL SUCCINATE 50 MG TABLET PO SCH (09:00)
[2022-11-23] MEDS ORDERED: MULTIVITAMIN TABLET PO SCH (09:00)
[2022-11-23] MEDS ORDERED: POTASSIUM CHLORIDE 10 MEQ CAPSULE PO SCH (09:00)
[2022-11-23] MEDS ORDERED: oxyCODONE 5 MG TABLET PO PRN (10:04)
--- NOTE | 2022-11-23 10:41 | PHARMACY PROGRESS NOTE ---
- Best Possible Medication History Admit Date and Time: 11/22/22 1625 Processed by: Pharmacy Medication History completed: Yes Patient Interview: Completed Secondary Source(s): Pharmacy records As the person ultimately responsible for medication therapy, providers are able to order a medication from an existing home medication list in [facility] via the "Reconcile Routine" prior to Confirmation of that medication by desktop support specialist. Such practice is discouraged except when the physician, in their clinical judgment, deems that a medical need exists for a medication without regard to previous use.
--- NOTE | 2022-11-23 13:20 | Discharge Plan ---
Discharge Plan Problem Reviewed?: Yes Disposition: Home, Self Care Condition: Poor Prescriptions: oxyCODONE [Roxicodone] 5 - 10 mg PO Q4HR PRN #10 tab PRN Reason: Pain 8 to 10 HYDROmorphone [Dilaudid] 2 mg PO Q6H PRN #10 tablet PRN Reason: Severe Pain (Level 7-10) Metoprolol Succinate [Toprol Xl] 50 mg PO DAILY #30 tab Sertraline [Zoloft] 50 mg PO DAILY #60 tab Diet: Low Sodium Activity Restrictions: Activity as Tolerated Shower Restrictions: No Instruction Topics: ED Ascites Health Concerns: You were briefly hospitalized to monitor your hemoglobin and see if needed a blood transfusion. The hemoglobin is low but is stable, is not dropping. You did not need a blood transfusion. You are advised to resume taking your vitamins and the iron supplements to build your hemoglobin back up. You had come to the hospital because of pain caused by the reaccumulated abdominal fluid (ascites), and yesterday you underwent successful removal of fluid from the abdomen. The re-accumulating ascites is caused by your liver failure, which is from your previous alcohol abuse. You are being discharged home today and advised to continue with your usual medications and management. You need referral to a Meeting Coordinator for more aggressively managing that ascites fluid that keeps reaccumulating, from your liver failure from alcohol abuse. Please keep eating a high-protein diet which will help decrease the amount of fluid that leaks into your belly. Resume taking all your medications that you were on before coming to the hospital. I have reordered oOycodone for pain, Dilaudid tablets for pain, your Metoprolol and your Zoloft medicines for you. The prescriptions were electronically sent to your [facility] pharmacy in [place]. Refrain from any alcohol use whatsoever. Keep your upcoming appointment with your Primary Care Provider. If you try calling her office on Friday, and say that you were just an inpatient, they may move up your appointment! Then try to get an MAYO appointment with a liver specialist! Plan of Treatment: As above. Care Goals: Improvement in symptoms and stabilization are the goals. Assessment: The patient understands and is agreeable with the plan. No Smoking: If you smoke, Please STOP! Call for help. Follow-up with: Rdaha Mills ARNP [Credentialed Staff Provider] -
--- NOTE | 2022-11-23 14:27 | DISCHARGE SUMMARY ---
Discharge Summary Admit Date: 11/22/22 Discharge Date: 11/23/22 Discharging Provider: Dr Emilia Bailon Primary Care Provider: WALDO Mills Code Status: Attempt Resuscitation Condition at Discharge: Poor Discharge Disposition: 01 Home, Self Care - HPI History of Present Illness: This is a 32-year-old male with a history of alcohol abuse. He has had many admissions here in the past 4 months for alcohol withdrawal and complications from alcoholic cirrhosis with ascites including upper GI bleed. He also had colitis about 2 months ago not related to his alcoholism. At the last admission he was discharged about 2 weeks ago. He has not had a drink since that time he reports. He came to the ER 5 days ago with a tense abdomen and underwent paracentesis. The ascites has reaccumulated and he came in again today with pain from tense ascites. 10 L was removed. He had stable blood pressure, mildly tachycardic at 103 in sinus rhythm. He told the ED provider that he this morning had bloody diarrhea. His hemoglobin was 8. A repeat hemoglobin was 7.6. The ED provider called me and we discussed this patient. He will be placed in observation to monitor for any worsening bloody diarrhea and any decline in hemoglobin for needing a possible blood transfusion. - HOSPITAL COURSE Hospital Course: (1) Anemia due to GI blood loss Patient has a history of upper GI bleed about a month ago, underwent an EGD then that showed a gastric erosion and nonbleeding varices were present. This time he has bright red blood per rectum diarrhea. There is also a history of colitis from about a month ago but that was not bloody just painful crampy abdominal pain with diarrhea then. We followed his hemoglobin every 6 hours, it did not drop. There were no bloody bowel movements here. (2) Bloody diarrhea Since this patient is "auto-anticoagulated", with INR of 1.5 due to his liver disease, there could be a bleeding hemorrhoid or an internal hemorrhoid that as the cause of this BRBPR. He was monitored. There were no bloody bowel movements here. (3) Alcoholic cirrhosis of liver with ascites This patient has had many recent admissions for alcohol withdrawal and also for complications of his alcoholic cirrhosis with transaminitis and tense ascites, has needed paracenteses in the past. This admission, he had a 10 L paracentesis, which helped his pain. He was discharged again with leaking from the paracentesis site and knows how to apply bandages to absorb that until leaking stops. - ALLERGIES Allergies/Adverse Reactions: Allergies Allergy/AdvReac Type Severity Reaction Status Date / Time No Known Drug Allergies Allergy Verified 11/07/22 21:07 - MEDICATIONS Home Medications: Ambulatory Orders Medication Instructions Recorded Confirmed Omeprazole Magnesium 20 mg PO QDAC 07/02/22 11/29/22 Multivitamin [Theragran] 1 tab PO DAILY 10/23/22 11/23/22 Furosemide [Lasix] 20 mg PO DAILY #30 tablet 11/01/22 11/23/22 Lactulose 15 ml PO DAILY PRN #30 ea 11/01/22 11/23/22 Thiamine [Vitamin B-1] 100 mg PO DAILY tab 11/01/22 11/23/22 Calcium Carbonate [Tums (Calcium 500 mg PO BID tab 11/13/22 11/23/22 Carbonate 500mg)] Spironolactone [Aldactone] 100 mg PO DAILY #120 tab 11/13/22 11/23/22 oxyCODONE [Roxicodone] 5 mg PO Q4HR PRN #30 tab 11/13/22 11/23/22 HYDROmorphone [Dilaudid] 2 mg PO Q6H PRN #10 tablet 11/23/22 Ibuprofen [Ibu-200] 3 tab PO DAILY PRN 11/23/22 11/23/22 Magnesium Oxide 1 tab PO DAILY 11/23/22 11/29/22 Metoprolol Succinate [Toprol Xl] 50 mg PO DAILY #30 tab 11/23/22 Potassium Chloride 3 cap PO DAILY 11/23/22 11/29/22 Sertraline [Zoloft] 50 mg PO DAILY #60 tab 11/23/22 11/29/22 oxyCODONE [Roxicodone] 5 - 10 mg PO Q4HR PRN #10 tab 11/23/22 11/29/22 HYDROmorphone [Dilaudid] 2 mg PO Q6H PRN #20 tablet 11/29/22 Magnesium Oxide [Mag Ox] 400 mg PO DAILY #30 tablet 11/29/22 - PHYSICAL EXAM AT DISCHARGE General Appearance: positive: No acute distress, Alert Eyes Bilateral: positive: EOMI, Other (Icteric) Neck: positive: Nml inspection, No JVD Respiratory: positive: No respiratory distress, Breath sounds nml Cardiovascular: positive: Regular rate & rhythm, No murmur Abdomen: positive: Other (Moderately distended, soft, positive fluid wave, liver edge palpable, bandage in the left lateral abdomen which is moist from drainage.) Skin: positive: Warm, Dry, Other (Icteric) Extremities: positive: Non-tender, No pedal edema Neurologic/Psychiatric: positive: Oriented x3, Motor nml, Other (No tremor, no nystagmus) - LABS Result Diagrams: 11/23/22 10:08 11/23/22 05:00 - DIAGNOSTIC IMAGING Diagnostic Imaging Results: Final report reviewed - FOLLOW UP Follow Up: He was advised to keep the upcoming appointment with his PCP and he needs a referral to [facility]. - TIME SPENT Time Spent in Discharge (Minutes): 30
[2022-11-23 14:42] VITALS: BP 102/59; O2SAT 93
== END 2022-11-23 15:05 | disposition home or self-care (01) ==
LOC: EDUNIT# → ED 10:38 → MS2 16:25
PROVIDERS: ADMIT Internal Medicine; ATTEND Internal Medicine
DX: K70.31 Alcoholic cirrhosis of liver with ascites (principal); K92.1 Melena; K21.9 Gastro-esophageal reflux disease without esophagitis; F17.200 Nicotine dependence, unspecified, uncomplicated; F10.10 Alcohol abuse, uncomplicated; R60.0 Localized edema; D50.0 Iron deficiency anemia secondary to blood loss (chronic); E87.1 Hypo-osmolality and hyponatremia; E83.51 Hypocalcemia; E83.42 Hypomagnesemia; R09.02 Hypoxemia; R19.7 Diarrhea, unspecified; F32.A Depression, unspecified; Z79.899 Other long term (current) drug therapy
CPT/HCPCS: 36415; 49082; 71045; 80053; 80320; 83690; 83735; 85014; 85018; 85025; 85027; 85610; 86850; 86900; 86901; 87070; 87205; 89051; 96365; 96367; 96375; 99284; 99285; A9270; G0378; J1170; J7040; P9047

== ENCOUNTER 2022-11-29 12:44 | Emergency (ER) | payer MEDICAID ==
--- NOTE | 2022-11-29 12:58 | ED Physician Documentation ---
PD HPI ABD PAIN - Stated complaint Stated Complaint: ABD PX - Chief complaint Chief Complaint: Abd Pain - History obtained from History obtained from: Patient - History of Present Illness Timing - onset: How many days ago Timing - duration: Days Timing - details: Gradual onset (The patient has been having frequently recurring ascites developed to the point of tenseness and pain with regular paracenteses. Appointment upcoming with primary care next week and presumably will get scheduled outpatient paracenteses arranged.), Still present Quality: Cramping, Fullness/distended Location: All over / everywhere Radiation: Lower back. No: Left flank, Right flank Improved by: Laying still Worsened by: Moving, Breathing, Palpation Associated symptoms: Nausea. No: Fever, Vomiting, Diarrhea Similar symptoms before: Diagnosis (liver failure with ascites) Recently seen: Emergency Dept, Admitted Review of Systems Constitutional: denies: Fever, Chills Nose: denies: Rhinorrhea / runny nose, Congestion Throat: denies: Sore throat Respiratory: denies: Cough GI: reports: Abdominal Pain, Abdominal Swelling, Nausea. denies: Diarrhea, Bloody / black stool Neurologic: reports: Generalized weakness. denies: Near syncope PD PAST MEDICAL HISTORY - Past Medical History Cardiovascular: None Respiratory: None Neuro: None Endocrine/Autoimmune: None GI: GERD, Esophageal varices, GI bleed, Pancreatitis, Cirrhosis : None HEENT: None Psych: Depression Musculoskeletal: None Derm: None - Past Surgical History Past Surgical History: No General: EGD - Present Medications Home Medications: Ambulatory Orders Medication Instructions Recorded Confirmed Omeprazole Magnesium 20 mg PO QDAC 07/02/22 11/29/22 Multivitamin [Theragran] 1 tab PO DAILY 10/23/22 11/23/22 Furosemide [Lasix] 20 mg PO DAILY #30 tablet 11/01/22 11/23/22 Lactulose 15 ml PO DAILY PRN #30 ea 11/01/22 11/23/22 Thiamine [Vitamin B-1] 100 mg PO DAILY tab 11/01/22 11/23/22 Calcium Carbonate [Tums (Calcium 500 mg PO BID tab 11/13/22 11/23/22 Carbonate 500mg)] Spironolactone [Aldactone] 100 mg PO DAILY #120 tab 11/13/22 11/23/22 oxyCODONE [Roxicodone] 5 mg PO Q4HR PRN #30 tab 11/13/22 11/23/22 HYDROmorphone [Dilaudid] 2 mg PO Q6H PRN #10 tablet 11/23/22 Ibuprofen [Ibu-200] 3 tab PO DAILY PRN 11/23/22 11/23/22 Magnesium Oxide 1 tab PO DAILY 11/23/22 11/29/22 Metoprolol Succinate [Toprol Xl] 50 mg PO DAILY #30 tab 11/23/22 Potassium Chloride 3 cap PO DAILY 11/23/22 11/29/22 Sertraline [Zoloft] 50 mg PO DAILY #60 tab 11/23/22 11/29/22 oxyCODONE [Roxicodone] 5 - 10 mg PO Q4HR PRN #10 tab 11/23/22 11/29/22 Magnesium Oxide [Mag Ox] 400 mg PO DAILY #30 tablet 11/29/22 - Allergies Allergies/Adverse Reactions: Allergies Allergy/AdvReac Type Severity Reaction Status Date / Time No Known Drug Allergies Allergy Verified 11/07/22 21:07 - Social History Does the pt smoke?: Yes Smoking Status: Current every day smoker Does the pt drink ETOH?: Yes Does the pt have substance abuse?: Yes - Immunizations Immunizations are current?: Yes - POLST Patient has POLST: No PD ED PE NORMAL - Vitals Vital signs reviewed: Yes - General General: Alert and oriented X 3, No acute distress, Well developed/nourished - Cardiac Cardiac: No murmur. No: RRR (regular but tachycardic mildly) - Respiratory Respiratory: Clear bilaterally - Abdomen Abdomen: Other (Distended and tense abdomen generally. No percussion or rebound tenderness.). No: Normal bowel sounds (decreasded) - Derm Derm: Normal color, Warm and dry - Extremities Extremities: No edema, No calf tenderness / cord - Neuro Neuro: Alert and oriented X 3, No motor deficit, Normal speech Results - Vitals Vitals: Vital Signs - 24 hr 11/29/22 11/29/22 11/29/22 12:53 12:55 14:55 Temperature 36.5 C 36.5 C 36.5 C Heart Rate 101 H 101 H 90 Respiratory 26 H 24 22 Rate Blood Pressure 117/66 117/66 118/62 O2 Saturation 96 96 98 11/29/22 11/29/22 16:00 16:15 Temperature 36.5 C 37.0 C Heart Rate 88 84 Respiratory 18 16 Rate Blood Pressure 120/60 101/64 O2 Saturation 100 96 Oxygen O2 Source Room air - Labs Labs: Laboratory Tests 11/29/22 11/29/22 13:28 13:28 WBC 14.2 H RBC 3.12 L Hgb 9.3 L Hct 28.6 L MCV 91.7 MCH 29.8 MCHC 32.5 RDW 19.5 H Plt Count 306 MPV 11.3 Neut # (Auto) 10.3 H Lymph # (Auto) 2.1 [place] # (Auto) 1.4 H Eos # (Auto) 0.3 Baso # (Auto) 0.1 Absolute Nucleated RBC 0.00 Nucleated RBC % 0.0 Manual Slide Review Indicated WBC Morphology NORMAL APPEARANCE Platelet Estimate NORMAL (130-450,000) Platelet Morphology NORMAL APPEARANCE RBC Morph Micro Appear NORMAL APPEARANCE Sodium 132 L Potassium 3.3 L Chloride 98 L Carbon Dioxide 28 Anion Gap 6.0 BUN 6 Creatinine 0.5 L Estimated GFR (MDRD) 194 Glucose 102 Calcium 8.1 L Magnesium 1.5 L Total Bilirubin 1.7 H AST 70 H ALT 26 Alkaline Phosphatase 289 H Total Protein 6.2 L Albumin 2.4 L Globulin 3.8 Albumin/Globulin Ratio 0.6 L Lipase 23 Procedures - Paracentesis - Major Preparation: Consent obtained, Ultrasound guidance, Sterile prep and drape, Local anesthesia Location: RLQ Technique: Catheter over needle Fluid: Clear, Sent for cell count, Sent for gram stain, Sent for culture, Volume - enter cc (5500 ml Obtained. It was draining briskly for the first 4 full bottles and then started draining intermittently even with repositioning. The patient was feeling improved regarding fullness and dyspnea and so we ended the procedure.) PD Medical Decision Making - ED course Complexity details: reviewed old records, d/w patient ED course: The patient with history of liver failure due to alcohol is him. Has had rec urrent paracenteses for symptoms. He is having abdominal distention and trouble breathing related to the fullness. Requesting paracentesis. We will get electrolytes and albumin level and blood count to see if those are in line. He had been getting 10 L drawn off on the last 2 taps. Commonly I look at 6 to 8 L and preload with some albumin. Nursing will get an IV started and give some albumin as well as some antiemetic and pain medicine. The patient has had the paracentesis done multiple times and he did not have any questions about it. A consent will be obtained. Departure - Departure Disposition: Home, Self Care Clinical Impression: Abdominal distension, Dyspnea, Liver failure, Ascites Condition: Stable Record reviewed to determine appropriate education?: Yes Instructions: ED Ascites Prescriptions: Magnesium Oxide [Mag Ox] 400 mg PO DAILY #30 tablet Comments: Continue with your current medications including the diuretics. Your potassium was a little bit low here. I would suggest increasing your potassium supplements to 2 tablets daily. Your magnesium was low as well and I would add a magnesium supplement too, if you are not already on one. Follow-up with your provider Friday as planned. Return to the ER if needed. Forms: PCP List
[2022-11-29] MEDS ORDERED: PROCHLORPERAZINE 10 MG/2 ML VIAL IVP STA (13:19)
[2022-11-29] MEDS ORDERED: ALBUMIN 25% 12.5 GM/50 ML VIAL IV STA (13:19)
[2022-11-29] MEDS ORDERED: HYDROmorphone 1 MG/ML CARPUJECT IVP STA (13:19)
[2022-11-29 13:35] LABS: BASOPHILS # (AUTO) 0.1 10^3/uL (0.0-0.1); BASOPHILS % (AUTO) 0.5 %; EOSINOPHILS # (AUTO) 0.3 10^3/uL (0.0-0.7); EOSINOPHILS % (AUTO) 2.4 %; HCT - HEMATOCRIT 28.6 % (42.0-52.0); HGB - HEMOGLOBIN 9.3 g/dL (14.0-18.0); LYMPHOCYTES # (AUTO) 2.1 10^3/uL (1.5-3.5); LYMPHOCYTES % (AUTO) 14.5 %; MEAN CORPUSCULAR HEMOGLOBIN 29.8 pg (27.0-31.0); MEAN CORPUSCULAR HGB CONC 32.5 g/dL (32.0-36.0); MEAN CORPUSCULAR VOLUME 91.7 fL (80.0-94.0); MEAN PLATELET VOLUME 11.3 fL (7.4-11.4); MONOCYTES # (AUTO) 1.4 10^3/uL (0.0-1.0); MONOCYTES % (AUTO) 9.9 %; NEUTROPHILS # (AUTO) 10.3 10^3/uL (1.5-6.6); NEUTROPHILS % (AUTO) 72.3 %; PLT - PLATELET COUNT 306 10^3/uL (130-450); RED BLOOD COUNT 3.12 10^6/uL (4.70-6.10); RED CELL DISTRIBUTION WIDTH 19.5 % (12.0-15.0); WHITE BLOOD COUNT 14.2 x10^3/uL (4.8-10.8)
[2022-11-29 13:36] LABS: SLIDE REVIEW? Indicated
[2022-11-29 13:49] LABS: ALBUMIN 2.4 g/dL (3.2-5.5); ALBUMIN/GLOBULIN RATIO 0.6 (1.0-2.2); BILIRUBIN,TOTAL 1.7 mg/dL (0.2-1.0); CALCIUM 8.1 mg/dL (8.5-10.3); CREATININE 0.5 mg/dL (0.6-1.3); MAGNESIUM 1.5 mg/dL (1.7-2.3); POTASSIUM 3.3 mmol/L (3.5-4.5); TOTAL PROTEIN 6.2 g/dL (6.4-8.9)
[2022-11-29] MEDS ORDERED: MAGNESIUM SULFATE 2 GRAM 2 GM/50 ML BAG IV ONE (13:56)
[2022-11-29] MEDS ORDERED: POTASSIUM BICARB 25 MEQ TABLET PO STA (13:56)
[2022-11-29 14:08] LABS: PLATELET ESTIMATE, MANUAL NORMAL (130-450,000) (NORMAL); PLATELET MORPHOLOGY NORMAL APPEARANCE (NORMAL); RBC MORPHOLOGY (MULTIPLE) NORMAL APPEARANCE (NORMAL); WBC MORPHOLOGY (MULTIPLE) NORMAL APPEARANCE (NORMAL)
[2022-11-29 16:44] VITALS: BP 110/68; O2SAT 97
[2022-11-29 17:00] LABS: CC,BF WBC 114 /mm^3
[2022-11-29 17:01] LABS: BF CLARITY CLEAR; BF COLOR YELLOW; BF SOURCE PERITONEAL
[2022-11-29 17:14] LABS: CC,BF RBC < 3000 /mm^3
[2022-11-29 17:18] LABS: LYMPHOCYTES %,BODY FLUID 3 %; MACROPHAGES %,BODY FLUID 93 %; MESOTHELIAL %, BF 1 %; NEUTROPHILS %, BF 3 %
== END 2022-11-29 16:59 | disposition home or self-care (01) ==
LOC: ED 12:44
DX: R18.8 Other ascites (principal); K70.40 Alcoholic hepatic failure without coma; E87.6 Hypokalemia; E83.42 Hypomagnesemia; F17.200 Nicotine dependence, unspecified, uncomplicated
CPT/HCPCS: 36415; 49082; 80053; 83690; 83735; 85025; 87070; 87205; 89051; 96365; 96366; 96368; 96375; 99284; 99285; A9270; J1170; P9047

== ENCOUNTER 2022-12-06 12:46 | Emergency (ER) | payer MEDICAID ==
[2022-12-06] MEDS ORDERED: HYDROmorphone 1 MG/ML CARPUJECT IVP STA (13:12)
--- NOTE | 2022-12-06 13:12 | ED Physician Documentation ---
PD HPI ABD PAIN - Stated complaint Stated Complaint: ABD PX,SOA - Chief complaint Chief Complaint: Abd Pain - History obtained from History obtained from: Patient - Additional information Additional information: 32-year-old gentleman with alcoholic cirrhosis presents requesting paracentesis with abdominal pain, distention, and shortness of breath related to same. Its been a week since his last paracentesis. PD PAST MEDICAL HISTORY - Past Medical History Cardiovascular: None Respiratory: None Neuro: None Endocrine/Autoimmune: None GI: GERD, Esophageal varices, GI bleed, Pancreatitis, Cirrhosis : None HEENT: None Psych: Depression Musculoskeletal: None Derm: None - Past Surgical History Past Surgical History: No General: EGD - Present Medications Home Medications: Ambulatory Orders Medication Instructions Recorded Confirmed Omeprazole Magnesium 20 mg PO QDAC 07/02/22 11/29/22 Multivitamin [Theragran] 1 tab PO DAILY 10/23/22 11/23/22 Furosemide [Lasix] 20 mg PO DAILY #30 tablet 11/01/22 11/23/22 Lactulose 15 ml PO DAILY PRN #30 ea 11/01/22 11/23/22 Thiamine [Vitamin B-1] 100 mg PO DAILY tab 11/01/22 11/23/22 Calcium Carbonate [Tums (Calcium 500 mg PO BID tab 11/13/22 11/23/22 Carbonate 500mg)] Spironolactone [Aldactone] 100 mg PO DAILY #120 tab 11/13/22 11/23/22 oxyCODONE [Roxicodone] 5 mg PO Q4HR PRN #30 tab 11/13/22 11/23/22 HYDROmorphone [Dilaudid] 2 mg PO Q6H PRN #10 tablet 11/23/22 Ibuprofen [Ibu-200] 3 tab PO DAILY PRN 11/23/22 11/23/22 Magnesium Oxide 1 tab PO DAILY 11/23/22 11/29/22 Metoprolol Succinate [Toprol Xl] 50 mg PO DAILY #30 tab 11/23/22 Potassium Chloride 3 cap PO DAILY 11/23/22 11/29/22 Sertraline [Zoloft] 50 mg PO DAILY #60 tab 11/23/22 11/29/22 oxyCODONE [Roxicodone] 5 - 10 mg PO Q4HR PRN #10 tab 11/23/22 11/29/22 HYDROmorphone [Dilaudid] 2 mg PO Q6H PRN #20 tablet 11/29/22 Magnesium Oxide [Mag Ox] 400 mg PO DAILY #30 tablet 11/29/22 - Allergies Allergies/Adverse Reactions: Allergies Allergy/AdvReac Type Severity Reaction Status Date / Time No Known Drug Allergies Allergy Verified 12/06/22 12:54 - Social History Does the pt smoke?: Yes Smoking Status: Current every day smoker Does the pt drink ETOH?: Yes Does the pt have substance abuse?: Yes - Immunizations Immunizations are current?: Yes - POLST Patient has POLST: No PD ED PE NORMAL - Vitals Vital signs reviewed: Yes - General General: Alert and oriented X 3, No acute distress - Respiratory Respiratory: No respiratory distress - Abdomen Abdomen: Other (Distended fluid-filled abdomen but no tenderness.) - Neuro Neuro: Alert and oriented X 3, Normal speech Results - Vitals Vitals: Vital Signs - 24 hr 12/06/22 12/06/22 12/06/22 12:50 13:30 13:33 Temperature 36.8 C Heart Rate 104 H 92 107 H Respiratory 20 15 18 Rate Blood Pressure 137/84 H 130/85 H 130/85 H O2 Saturation 97 97 98 If not protocol : Oxygen Flow, liters/minute 12/06/22 12/06/22 12/06/22 13:50 14:10 14:15 Temperature Heart Rate 82 Respiratory 10 L Rate Blood Pressure 124/75 O2 Saturation 99 72 L 91 L If not protocol 2 2 4 : Oxygen Flow, liters/minute 12/06/22 15:35 Temperature Heart Rate 87 Respiratory 15 Rate Blood Pressure 124/70 O2 Saturation 98 If not protocol : Oxygen Flow, liters/minute Oxygen O2 Source Room air - Labs Labs: Microbiology 12/06/22 14:05 Body Fluid Culture - Preliminary Ascities Fluid Laboratory Tests 12/06/22 12/06/22 12/06/22 13:19 13:19 13:19 WBC 19.9 H RBC 3.67 L Hgb 10.5 L Hct 32.5 L MCV 88.6 MCH 28.6 MCHC 32.3 RDW 18.8 H Plt Count 460 H MPV 9.8 Neut # (Auto) 13.6 H Lymph # (Auto) 3.8 H [place] # (Auto) 2.2 H Eos # (Auto) 0.0 Baso # (Auto) 0.1 Absolute Nucleated RBC 0.00 Band Neuts % (Manual) Not Reportable Abnorm Lymph % (Manual) Not Reportable Nucleated RBC % 0.0 Neutrophils # (Manual) Not Reportable Lymphocytes # (Manual) Not Reportable Monocytes # (Manual) Not Reportable Eosinophils # (Manual) Not Reportable Basophils # (Manual) Not Reportable Differential Comment MANUAL=AUTO DIFF WBC Morphology NORMAL APPEARANCE Platelet Estimate INCREASED (>450,000) Platelet Morphology NORMAL APPEARANCE RBC Morph Micro Appear 2+ HYPOCHROMASIA PT 16.7 H INR 1.5 H Sodium 136 Potassium 3.2 L Chloride 99 L Carbon Dioxide 27 Anion Gap 10.0 BUN 6 Creatinine 0.4 L Estimated GFR (MDRD) 251 Glucose 114 H Calcium 8.1 L Magnesium 1.5 L Total Bilirubin 1.4 H AST 86 H ALT 28 Alkaline Phosphatase 248 H Total Protein 6.7 Albumin 2.6 L Globulin 4.1 Albumin/Globulin Ratio 0.6 L Fluid Source Fluid Color Fluid Clarity Fluid WBC Fluid RBC Fluid Neutrophils % Fluid Lymphocytes % Fluid Macrophages % Fld Mesothelial Cell % Ethyl Alcohol 402.7 12/06/22 14:05 WBC RBC Hgb Hct MCV MCH MCHC RDW Plt Count MPV Neut # (Auto) Lymph # (Auto) [place] # (Auto) Eos # (Auto) Baso # (Auto) Absolute Nucleated RBC Band Neuts % (Manual) Abnorm Lymph % (Manual) Nucleated RBC % Neutrophils # (Manual) Lymphocytes # (Manual) Monocytes # (Manual) Eosinophils # (Manual) Basophils # (Manual) Differential Comment WBC Morphology Platelet Estimate Platelet Morphology RBC Morph Micro Appear PT INR Sodium Potassium Chloride Carbon Dioxide Anion Gap BUN Creatinine Estimated GFR (MDRD) Glucose Calcium Magnesium Total Bilirubin AST ALT Alkaline Phosphatase Total Protein Albumin Globulin Albumin/Globulin Ratio Fluid Source PERITONEAL Fluid Color YELLOW Fluid Clarity CLEAR Fluid WBC 99 Fluid RBC < 3000 Fluid Neutrophils % 5 Fluid Lymphocytes % 14 Fluid Macrophages % 76 Fld Mesothelial Cell % 5 Ethyl Alcohol Procedures - Paracentesis - Major Preparation: Consent obtained, Ultrasound guidance, Sterile prep and drape, Local anesthesia Location: LLQ Fluid: Clear, Sent for cell count, Sent for culture, Volume - enter cc (8 liters) Aftercare: No complications, Dressing applied PD Medical Decision Making - ED course ED course: 32-year-old gentleman with alcoholic cirrhosis presents requesting paracentesis. Benign abdominal exam. Consented for paracentesis and done with 8 L out without issue except he started to have some pain at the end so was terminated after 8 L. He became more somnolent then, he was not clinically intoxicated whe n he got here so presume his alcohol level was actually going up and it was 402 on check here. Otherwise labs notable for leukocytosis. Improved H&H over prior. Stable high INR. Modest electrolyte abnormalities and potassium and magnesium were repleted orally. On recheck at 3:30 PM he was clinically sober. He wanted more fluid taken off but after 8 L I think we have done enough to resolve his symptoms today. He was counseled to quit drinking and he is understanding. He went home with his sober mother. Departure - Departure Disposition: 01 Home, Self Care Clinical Impression: Alcoholic cirrhosis of liver with ascites Alcohol intoxication Qualifiers: Complication of substance-induced condition: with delirium Qualified Code(s): F10.921 - Alcohol use, unspecified with intoxication delirium Condition: Good Record reviewed to determine appropriate education?: Yes Instructions: ED Alcohol Intoxication, ED Alcohol Abuse Comments: Work-up today shows no sign of infection in the fluid. Otherwise most of your numbers are stable. We did notes that your blood alcohol today was 402. This is the equivalent of probably about 16 drinks in rapid succession. We think you would benefit from admission for detoxification and/or rehabilitation from alcohol and/or drugs. The closest facility that does this is in [place]. It is: [facility] [address] [address] Call them at [phone] to arrange an intake appointment. Otherwise continue seeking referrals for hepatology and it sounds like your primary care physician already put in an order for you to be able to schedule routine paracentesis in our radiology clinic. Forms: PCP List Discharge Date/Time: 12/06/22 16:07
[2022-12-06 13:24] LABS: BASOPHILS # (AUTO) 0.1 10^3/uL (0.0-0.1); BASOPHILS % (AUTO) 0.5 %; EOSINOPHILS % (AUTO) 0.1 %; HCT - HEMATOCRIT 32.5 % (42.0-52.0); HGB - HEMOGLOBIN 10.5 g/dL (14.0-18.0); LYMPHOCYTES # (AUTO) 3.8 10^3/uL (1.5-3.5); LYMPHOCYTES % (AUTO) 19.3 %; MEAN CORPUSCULAR HEMOGLOBIN 28.6 pg (27.0-31.0); MEAN CORPUSCULAR HGB CONC 32.3 g/dL (32.0-36.0); MEAN CORPUSCULAR VOLUME 88.6 fL (80.0-94.0); MEAN PLATELET VOLUME 9.8 fL (7.4-11.4); MONOCYTES # (AUTO) 2.2 10^3/uL (0.0-1.0); MONOCYTES % (AUTO) 11.2 %; NEUTROPHILS # (AUTO) 13.6 10^3/uL (1.5-6.6); NEUTROPHILS % (AUTO) 68.5 %; PLT - PLATELET COUNT 460 10^3/uL (130-450); RED BLOOD COUNT 3.67 10^6/uL (4.70-6.10); RED CELL DISTRIBUTION WIDTH 18.8 % (12.0-15.0); WHITE BLOOD COUNT 19.9 x10^3/uL (4.8-10.8)
[2022-12-06 13:37] LABS: ALBUMIN 2.6 g/dL (3.2-5.5); ALBUMIN/GLOBULIN RATIO 0.6 (1.0-2.2); BILIRUBIN,TOTAL 1.4 mg/dL (0.2-1.0); CALCIUM 8.1 mg/dL (8.5-10.3); CREATININE 0.4 mg/dL (0.6-1.3); ETOH - ETHANOL 402.7 mg/dL; MAGNESIUM 1.5 mg/dL (1.7-2.3); POTASSIUM 3.2 mmol/L (3.5-4.5); TOTAL PROTEIN 6.7 g/dL (6.4-8.9)
[2022-12-06 13:41] LABS: INR 1.5 (0.8-1.2); PT - PROTHROMBIN TIME 16.7 secs (9.9-12.6)
[2022-12-06 14:08] LABS: PLATELET ESTIMATE, MANUAL INCREASED (>450,000) (NORMAL); PLATELET MORPHOLOGY NORMAL APPEARANCE (NORMAL)
[2022-12-06 14:09] LABS: DIFFERENTIAL COMMENT MANUAL=AUTO DIFF; WBC MORPHOLOGY (MULTIPLE) NORMAL APPEARANCE (NORMAL)
[2022-12-06] MEDS ORDERED: POTASSIUM CHLORIDE 20 MEQ TABLET PO STA (14:11)
[2022-12-06] MEDS ORDERED: MAGNESIUM OXIDE 400 MG TABLET PO STA (14:11)
[2022-12-06] MEDS ORDERED: THIAMINE 100 MG TABLET PO STA (14:11)
[2022-12-06 14:32] LABS: BF CLARITY CLEAR; BF COLOR YELLOW; BF SOURCE PERITONEAL; CC,BF RBC < 3000 /mm^3; CC,BF WBC 99 /mm^3
[2022-12-06 15:17] LABS: LYMPHOCYTES %,BODY FLUID 14 %; MACROPHAGES %,BODY FLUID 76 %; NEUTROPHILS %, BF 5 %
[2022-12-06 15:18] LABS: MESOTHELIAL %, BF 5 %
[2022-12-06 15:38] VITALS: BP 124/70; O2SAT 98
== END 2022-12-06 16:07 | disposition home or self-care (01) ==
LOC: ED 12:46
DX: R10.9 Unspecified abdominal pain (principal); R06.02 Shortness of breath; R14.0 Abdominal distension (gaseous); K70.31 Alcoholic cirrhosis of liver with ascites; F10.121 Alcohol abuse with intoxication delirium; Y90.8 Blood alcohol level of 240 mg/100 ml or more; F17.200 Nicotine dependence, unspecified, uncomplicated; Z79.899 Other long term (current) drug therapy
CPT/HCPCS: 36415; 49082; 80053; 80320; 83735; 85025; 85610; 87070; 87205; 89051; 96374; 99283; 99284; A9270; J1170

== ENCOUNTER 2022-12-11 11:36 | Outpatient (CLI) | payer MEDICAID | END 2022-12-11 23:59 | disposition critical access hospital (66) | LOC: EMS 11:36 | DX: R18.8 Other ascites (principal); R06.02 Shortness of breath; M54.50 Low back pain, unspecified; R20.0 Anesthesia of skin | CPT/HCPCS: A0425; A0429; A0999 ==

== ENCOUNTER 2022-12-11 12:01 | Emergency (ER) | payer MEDICAID ==
[2022-12-11] MEDS ORDERED: SODIUM CHLORIDE 0.9% 1,000 ML IV STA ×2 (12:15→16:31)
[2022-12-11] MEDS ORDERED: PANTOPRAZOLE 40 MG VIAL IVP STA (12:16)
[2022-12-11] MEDS ORDERED: ONDANSETRON 4 MG/2 ML VIAL IVP STA (12:16)
[2022-12-11] MEDS ORDERED: HYDROmorphone 1 MG/ML CARPUJECT IVP STA (12:17)
--- NOTE | 2022-12-11 12:21 | ED Physician Documentation ---
History of Present Illness - Stated complaint Stated Complaint: ABD PX - Additonal information Additional information: 32-year-old male with a known history of alcoholic cirrhosis presents to the emergency department intoxicated and reporting abdominal pain. States that over the last 2 days he has drank at least half a gallon of liquor. Last seen here 5 days ago and had an 8 L paracentesis. Patient is not requesting paracentesis today and he has a soft abdomen, though there is some distention but it is not taught per se. Denies any melena or hematochezia as of recent. He does smell heavily of alcohol at this time. Review of Systems Unable to obtain: Intoxicated PD PAST MEDICAL HISTORY - Past Medical History Cardiovascular: None Respiratory: None Neuro: None Endocrine/Autoimmune: None GI: GERD, Esophageal varices, GI bleed, Pancreatitis, Cirrhosis : None HEENT: None Psych: Depression Musculoskeletal: None Derm: None - Past Surgical History Past Surgical History: No General: EGD - Present Medications Home Medications: Ambulatory Orders Medication Instructions Recorded Confirmed Omeprazole Magnesium 20 mg PO QDAC 07/02/22 11/29/22 Multivitamin [Theragran] 1 tab PO DAILY 10/23/22 11/23/22 Furosemide [Lasix] 20 mg PO DAILY #30 tablet 11/01/22 11/23/22 Lactulose 15 ml PO DAILY PRN #30 ea 11/01/22 11/23/22 Thiamine [Vitamin B-1] 100 mg PO DAILY tab 11/01/22 11/23/22 Calcium Carbonate [Tums (Calcium 500 mg PO BID tab 11/13/22 11/23/22 Carbonate 500mg)] Spironolactone [Aldactone] 100 mg PO DAILY #120 tab 11/13/22 11/23/22 oxyCODONE [Roxicodone] 5 mg PO Q4HR PRN #30 tab 11/13/22 11/23/22 HYDROmorphone [Dilaudid] 2 mg PO Q6H PRN #10 tablet 11/23/22 Ibuprofen [Ibu-200] 3 tab PO DAILY PRN 11/23/22 11/23/22 Magnesium Oxide 1 tab PO DAILY 11/23/22 11/29/22 Metoprolol Succinate [Toprol Xl] 50 mg PO DAILY #30 tab 11/23/22 Potassium Chloride 3 cap PO DAILY 11/23/22 11/29/22 Sertraline [Zoloft] 50 mg PO DAILY #60 tab 11/23/22 11/29/22 oxyCODONE [Roxicodone] 5 - 10 mg PO Q4HR PRN #10 tab 11/23/22 11/29/22 HYDROmorphone [Dilaudid] 2 mg PO Q6H PRN #20 tablet 11/29/22 Magnesium Oxide [Mag Ox] 400 mg PO DAILY #30 tablet 11/29/22 - Allergies Allergies/Adverse Reactions: Allergies Allergy/AdvReac Type Severity Reaction Status Date / Time No Known Drug Allergies Allergy Verified 12/06/22 12:54 - Social History Does the pt smoke?: Yes Smoking Status: Current every day smoker Does the pt drink ETOH?: Yes Does the pt have substance abuse?: Yes - Immunizations Immunizations are current?: Yes - POLST Patient has POLST: No PD ED PE NORMAL - General General: Alert and oriented X 3, No acute distress. No: Well developed/nourished (Appears intoxicated and smells of alcohol) - HEENT HEENT: Atraumatic, Moist mucous membranes - Neck Neck: Supple, no meningeal sign - Cardiac Cardiac: RRR, No murmur - Respiratory Respiratory: No respiratory distress, Clear bilaterally - Abdomen Abdomen: Normal bowel sounds, Soft, Non tender, Non distended (Mildly distended though not taut abdomen. Palpable ascites. Nontender exam.) - Back Back: No CVA TTP, No spinal TTP - Derm Derm: Normal color, Warm and dry, No rash - Extremities Extremities: No deformity - Neuro Neuro: Alert and oriented X 3, drum handler 2-12 intact Eye Opening: Spontaneous Motor: Obeys Commands Verbal: Oriented GCS Score: 15 Results - Vitals Vitals: Vital Signs - 24 hr 12/11/22 12/11/22 12/11/22 12:14 12:49 13:41 Temperature 36.1 C L Heart Rate 78 92 Respiratory 15 16 11 L Rate Blood Pressure 115/76 109/72 115/91 H O2 Saturation 89 L 95 96 If not protocol 2 2 : Oxygen Flow, liters/minute 12/11/22 12/11/22 16:11 16:38 Temperature Heart Rate 101 H 78 Respiratory 16 10 L Rate Blood Pressure 109/61 130/90 H O2 Saturation 96 97 If not protocol 2 2 : Oxygen Flow, liters/minute Oxygen O2 Source Nasal cannula - Labs Labs: Laboratory Tests 12/11/22 12/11/22 12/11/22 12:43 12:43 12:43 WBC 15.8 H RBC 3.71 L Hgb 10.5 L Hct 31.8 L MCV 85.7 MCH 28.3 MCHC 33.0 RDW 18.8 H Plt Count 258 MPV 9.8 Neut # (Auto) 12.5 H Lymph # (Auto) 2.2 [place] # (Auto) 0.9 Eos # (Auto) 0.0 Baso # (Auto) 0.1 Absolute Nucleated RBC 0.00 Nucleated RBC % 0.0 PT 15.9 H INR 1.5 H Sodium 129 L Potassium 3.9 Chloride 95 L Carbon Dioxide 23 Anion Gap 11.0 BUN 6 Creatinine 0.4 L Estimated GFR (MDRD) 251 Glucose 126 H Calcium 7.7 L Phosphorus 4.0 Magnesium 1.3 L Total Bilirubin 1.4 H AST 119 H ALT 30 Alkaline Phosphatase 311 H Ammonia Total Protein 6.6 Albumin 2.4 L Globulin 4.2 Albumin/Globulin Ratio 0.6 L Lipase 53 Urine Color Urine Clarity Urine pH Ur Specific [place] Urine Protein Urine Glucose (UA) Urine Ketones Urine Occult Blood Urine Nitrite Urine Bilirubin Urine Urobilinogen Ur Leukocyte Esterase Ur Microscopic Review Urine Culture Comments Ethyl Alcohol 445.8 12/11/22 12/11/22 12:43 13:36 WBC RBC Hgb Hct MCV MCH MCHC RDW Plt Count MPV Neut # (Auto) Lymph # (Auto) [place] # (Auto) Eos # (Auto) Baso # (Auto) Absolute Nucleated RBC Nucleated RBC % PT INR Sodium Potassium Chloride Carbon Dioxide Anion Gap BUN Creatinine Estimated GFR (MDRD) Glucose Calcium Phosphorus Magnesium Total Bilirubin AST ALT Alkaline Phosphatase Ammonia 49.6 Total Protein Albumin Globulin Albumin/Globulin Ratio Lipase Urine Color DARK YELLOW Urine Clarity CLEAR Urine pH 6.0 Ur Specific [place] 1.020 Urine Protein TRACE Urine Glucose (UA) NEGATIVE Urine Ketones NEGATIVE Urine Occult Blood NEGATIVE Urine Nitrite NEGATIVE Urine Bilirubin SMALL H Urine Urobilinogen 1 (NORMAL) Ur Leukocyte Esterase NEGATIVE Ur Microscopic Review NOT INDICATED Urine Culture Comments NOT INDICATED Ethyl Alcohol PD Medical Decision Making - ED course Complexity details: reviewed results, re-evaluated patient, d/w patient ED course: 32-year-old male who has a known history of alcoholic cirrhosis presents to the emergency department reportedly for abdominal pain. He reports drinking very heavily over the last 2 days consuming at least half a gallon of liquor. He does arrive intoxicated appearing and smelling of alcohol. Seen in this emergency department last 5 days ago where he had an 8 L paracentesis with no evidence of infection. Today in the emergency department we did obtain CBC, electrolytes ammonia level no significant findings include moderate leukocytosis with white count of 15.8 thousand. However this is decreased from the visit several days ago where it was nearly 20,000. Persistent anemia unchanged with a hemoglobin of 10.5. INR remains unchanged 1.5. He does not have modest hyponatremia with a sodium of 129. He does have bilirubin and LFT abnormalities consistent with alcoholic hepatitis. We did obtain magnesium and phosphorus as well. His mag was mildly low at 1.3 which was repleted today in the ER. Urine was without signs of infection. He did present intoxicated with blood alcohol level of 445. Patient does have a MELD score of 20 indicating a 3 to 4% estimated 90-day mortality risk. On abdominal exam there was no tenderness elicited. He does have a mildly d istended but not taut abdomen. Mild ascites was present but given the lack of pain fevers and a very recent paracentesis with 8 L I do not feel that he needs a therapeutic paracentesis today. Neither do I feel that he has clinical symptoms that are indicative of a peritonitis and I do not feel he needs a diagnostic paracentesis. While here in the emergency department the patient did receive some IV fluids and was observed. He did receive IV fluids, single milligram of Dilaudid and a single dose of oxycodone. He has been able to metabolize and is at this time clinically sober and will be discharged. He was encouraged to discontinue alcohol use and to follow closely with a referral to GI that has been placed through his primary care doctor. The usual emergent return precautions were di scussed for worsening symptoms. 1630: Patient ambulated to the bathroom but then nursing staff noted that he was found on his hands and knees in the bathroom. Does not appear that he fainted though the patient is not sure. He was returned to the bedside. His vital signs are appropriate given condition. At this time he will be allowed a little more time to metabolize his alcohol before being discharged. 1800: Patient has continued to rest here in the emergency department. On reevaluation his vital signs remained stable. He has been able to ambulate easily in the hallway with our tech with no findings of hypotension disorientation or lightheadedness. As such she is discharged home Departure - Departure Disposition: 01 Home, Self Care Clinical Impression: Alcoholic cirrhosis of liver with ascites, Alcohol abuse Condition: Stable Instructions: ED Alcohol Abuse Comments: Hemanth matthew are seen today in the emergency department for belly pain and cirrhosis. You had a paracentesis completed 5 days ago. There is no indication today to repeat the paracentesis. Your labs are not markedly changed from previous. However continuing to drink as you do will most certainly result in the loss of your life in the upcoming few weeks or months. I do advise you to stop drinking if you are able. Please continue to follow with the GI referral that has been placed for you. A mold injector can help get you scheduled paracentesis is completed. You can continue to take your usual prescribed medications. Return to the ER for any new or worsening symptoms
[2022-12-11 12:50] LABS: BASOPHILS # (AUTO) 0.1 10^3/uL (0.0-0.1); BASOPHILS % (AUTO) 0.4 %; EOSINOPHILS % (AUTO) 0.3 %; HCT - HEMATOCRIT 31.8 % (42.0-52.0); HGB - HEMOGLOBIN 10.5 g/dL (14.0-18.0); LYMPHOCYTES # (AUTO) 2.2 10^3/uL (1.5-3.5); LYMPHOCYTES % (AUTO) 14.1 %; MEAN CORPUSCULAR HEMOGLOBIN 28.3 pg (27.0-31.0); MEAN CORPUSCULAR VOLUME 85.7 fL (80.0-94.0); MEAN PLATELET VOLUME 9.8 fL (7.4-11.4); MONOCYTES # (AUTO) 0.9 10^3/uL (0.0-1.0); MONOCYTES % (AUTO) 5.7 %; NEUTROPHILS # (AUTO) 12.5 10^3/uL (1.5-6.6); NEUTROPHILS % (AUTO) 79.2 %; PLT - PLATELET COUNT 258 10^3/uL (130-450); RED BLOOD COUNT 3.71 10^6/uL (4.70-6.10); RED CELL DISTRIBUTION WIDTH 18.8 % (12.0-15.0); WHITE BLOOD COUNT 15.8 x10^3/uL (4.8-10.8)
[2022-12-11 13:00] LABS: INR 1.5 (0.8-1.2); PT - PROTHROMBIN TIME 15.9 secs (9.9-12.6)
[2022-12-11 13:05] LABS: ALBUMIN 2.4 g/dL (3.2-5.5); ALBUMIN/GLOBULIN RATIO 0.6 (1.0-2.2); BILIRUBIN,TOTAL 1.4 mg/dL (0.2-1.0); CALCIUM 7.7 mg/dL (8.5-10.3); CREATININE 0.4 mg/dL (0.6-1.3); ETOH - ETHANOL 445.8 mg/dL; MAGNESIUM 1.3 mg/dL (1.7-2.3); POTASSIUM 3.9 mmol/L (3.5-4.5); TOTAL PROTEIN 6.6 g/dL (6.4-8.9)
[2022-12-11] MEDS ORDERED: MAGNESIUM SULFATE 2 GRAM 2 GM/50 ML BAG IV ONE (13:21)
[2022-12-11] MEDS ORDERED: CALCIUM GLUC 1,000MG/50ML-NACL 1,000 MG/50 ML BAG IV STA (13:21)
[2022-12-11 13:56] LABS: CLARITY,URINE CLEAR (CLEAR); GLUCOSE, URINE (UA) NEGATIVE (NEGATIVE); KETONES,URINE (UA) NEGATIVE (NEGATIVE); LEUKOCYTE ESTERASE, URINE NEGATIVE (NEGATIVE); NITRITE,URINE NEGATIVE (NEGATIVE); OCCULT BLOOD,URINE NEGATIVE (NEGATIVE); PROTEIN,URINE TRACE mg/dL (NEGATIVE); UROBILINOGEN,URINE 1 (NORMAL) E.U./dL (NORMAL)
[2022-12-11 13:59] LABS: BILIRUBIN,URINE SMALL (NEGATIVE); ICTOTEST,URINE POSITIVE
[2022-12-11] MEDS ORDERED: oxyCODONE 5 MG TABLET PO STA (16:04)
[2022-12-12 10:56] VITALS: BP 129/80; O2SAT 98
== END 2022-12-11 19:18 | disposition home or self-care (01) ==
LOC: EDUNIT# → ED 12:01
DX: K70.31 Alcoholic cirrhosis of liver with ascites (principal); F10.229 Alcohol dependence with intoxication, unspecified; Y90.8 Blood alcohol level of 240 mg/100 ml or more; F17.200 Nicotine dependence, unspecified, uncomplicated; Z79.899 Other long term (current) drug therapy
CPT/HCPCS: 36415; 80053; 80320; 81003; 82140; 83690; 83735; 84100; 85025; 85610; 96361; 96365; 96366; 96367; 96375; 99284; A9270; J1170; 81001; 87086

== ENCOUNTER 2022-12-17 14:23 | Outpatient (CLI) | payer MEDICAID | END 2022-12-17 23:59 | disposition critical access hospital (66) | LOC: EMS 14:23 | DX: R07.1 Chest pain on breathing (principal); R06.02 Shortness of breath; R10.84 Generalized abdominal pain; R11.0 Nausea; R44.0 Auditory hallucinations; R25.1 Tremor, unspecified | CPT/HCPCS: A0425; A0427; A0999 ==

== ENCOUNTER 2022-12-17 14:50 | Emergency (ER) | payer MEDICAID ==
--- NOTE | 2022-12-17 14:59 | ED Physician Documentation ---
PD HPI ABD PAIN - Stated complaint Stated Complaint: ABD PX - History obtained from History obtained from: Patient - History of Present Illness Timing - onset: How many weeks ago (has had increasing ascites again wiht feeling of dysnpea SOB du to enlarged abd.) Timing - duration: Weeks Timing - details: Gradual onset Quality: Cramping, Aching, Fullness/distended Location: All over / everywhere Radiation: Chest, Lower back Improved by: BM Worsened by: Eating Associated symptoms: Nausea, Loss of appetite. No: Fever, Vomiting, Diarrhea Similar symptoms before: Diagnosis (alcoholic liver failure with ascites. Has had paracentesis a few times. Has appt with gi at [facility] to set up regular outpt taps and other liver failure treatments.) Review of Systems Constitutional: denies: Fever, Chills, Myalgias Nose: denies: Rhinorrhea / runny nose, Congestion Throat: denies: Sore throat Respiratory: reports: Dyspnea (when his abdomen gets overly distended.). denies: Cough GI: reports: Abdominal Swelling, Nausea. denies: Vomiting, Diarrhea PD PAST MEDICAL HISTORY - Past Medical History Cardiovascular: None Respiratory: None Neuro: None Endocrine/Autoimmune: None GI: GERD, Esophageal varices, GI bleed, Pancreatitis, Cirrhosis : None HEENT: None Psych: Depression Musculoskeletal: None Derm: None - Past Surgical History Past Surgical History: No General: EGD - Present Medications Home Medications: Ambulatory Orders Medication Instructions Recorded Confirmed Omeprazole Magnesium 20 mg PO QDAC 07/02/22 11/29/22 Multivitamin [Theragran] 1 tab PO DAILY 10/23/22 11/23/22 Furosemide [Lasix] 20 mg PO DAILY #30 tablet 11/01/22 11/23/22 Lactulose 15 ml PO DAILY PRN #30 ea 11/01/22 11/23/22 Thiamine [Vitamin B-1] 100 mg PO DAILY tab 11/01/22 11/23/22 Calcium Carbonate [Tums (Calcium 500 mg PO BID tab 11/13/22 11/23/22 Carbonate 500mg)] Spironolactone [Aldactone] 100 mg PO DAILY #120 tab 11/13/22 11/23/22 oxyCODONE [Roxicodone] 5 mg PO Q4HR PRN #30 tab 11/13/22 11/23/22 HYDROmorphone [Dilaudid] 2 mg PO Q6H PRN #10 tablet 11/23/22 Ibuprofen [Ibu-200] 3 tab PO DAILY PRN 11/23/22 11/23/22 Magnesium Oxide 1 tab PO DAILY 11/23/22 11/29/22 Metoprolol Succinate [Toprol Xl] 50 mg PO DAILY #30 tab 11/23/22 Potassium Chloride 3 cap PO DAILY 11/23/22 11/29/22 Sertraline [Zoloft] 50 mg PO DAILY #60 tab 11/23/22 11/29/22 oxyCODONE [Roxicodone] 5 - 10 mg PO Q4HR PRN #10 tab 11/23/22 11/29/22 HYDROmorphone [Dilaudid] 2 mg PO Q6H PRN #20 tablet 11/29/22 Magnesium Oxide [Mag Ox] 400 mg PO DAILY #30 tablet 11/29/22 - Allergies Allergies/Adverse Reactions: Allergies Allergy/AdvReac Type Severity Reaction Status Date / Time No Known Drug Allergies Allergy Verified 12/06/22 12:54 - Social History Does the pt smoke?: Yes Smoking Status: Current every day smoker Does the pt drink ETOH?: Yes Does the pt have substance abuse?: Yes - Immunizations Immunizations are current?: Yes - POLST Patient has POLST: No PD ED PE NORMAL - Vitals Vital signs reviewed: Yes - General General: Alert and oriented X 3, Well developed/nourished - HEENT HEENT: Pharynx benign - Neck Neck: Supple, no meningeal sign, No adenopathy - Cardiac Cardiac: RRR, No murmur - Respiratory Respiratory: No respiratory distress, Clear bilaterally - Abdomen Abdomen: Other (distended and tense abd with dullness to percussion c/ fluid. Bedside US showing significant ascites both side. ,). No: Normal bowel sounds (decreased), Non tender (tender to palpation diffusely but no guarding nor percussion tenderness. Does not seem peritoneal. ) Results - Vitals Vitals: Vital Signs - 24 hr 12/17/22 12/17/22 12/17/22 14:58 15:08 17:09 Temperature 35.9 C L Heart Rate 101 H 105 H 101 H Respiratory 18 18 18 Rate Blood Pressure 113/80 115/80 108/64 O2 Saturation 100 93 95 09/05/23 09/05/23 17:54 18:28 Temperature Heart Rate 90 86 Respiratory 18 18 Rate Blood Pressure 100/68 110/58 L O2 Saturation 98 98 Oxygen O2 Source Room air - Labs Labs: Microbiology 12/17/22 18:03 Body Fluid Culture - Preliminary Other - Abdominal Laboratory Tests 12/17/22 12/17/22 12/17/22 15:21 15:21 15:21 WBC 10.2 RBC 3.65 L Hgb 10.4 L Hct 31.6 L MCV 86.6 MCH 28.5 MCHC 32.9 RDW 19.9 H Plt Count 71 L MPV 10.1 Neut # (Auto) 7.7 H Lymph # (Auto) 1.2 L [place] # (Auto) 1.3 H Eos # (Auto) 0.0 Baso # (Auto) 0.0 Absolute Nucleated RBC 0.00 Nucleated RBC % 0.0 Sodium 133 L Potassium 2.8 L Chloride 99 L Carbon Dioxide 25 Anion Gap 9.0 BUN 7 Creatinine 0.5 L Estimated GFR (MDRD) 194 Glucose 121 H Calcium 7.8 L Magnesium 1.2 L Total Bilirubin 1.5 H AST 70 H ALT 27 Alkaline Phosphatase 222 H Ammonia 61.8 Total Protein 6.3 L Albumin 2.1 L Globulin 4.2 Albumin/Globulin Ratio 0.5 L Lipase 61 H Fluid Source Fluid Color Fluid Clarity Fluid WBC Fluid RBC Fluid Neutrophils % Fluid Lymphocytes % Fluid Monocytes % Fluid Eosinophils % Fluid Macrophages % Fld Mesothelial Cell % Ethyl Alcohol < 10.0 12/17/22 18:03 WBC RBC Hgb Hct MCV MCH MCHC RDW Plt Count MPV Neut # (Auto) Lymph # (Auto) [place] # (Auto) Eos # (Auto) Baso # (Auto) Absolute Nucleated RBC Nucleated RBC % Sodium Potassium Chloride Carbon Dioxide Anion Gap BUN Creatinine Estimated GFR (MDRD) Glucose Calcium Magnesium Total Bilirubin AST ALT Alkaline Phosphatase Ammonia Total Protein Albumin Globulin Albumin/Globulin Ratio Lipase Fluid Source PERITONEAL Fluid Color YELLOW Fluid Clarity CLEAR Fluid WBC 82 Fluid RBC < 3000 Fluid Neutrophils % 13 Fluid Lymphocytes % 4 Fluid Monocytes % 3 Fluid Eosinophils % 1 Fluid Macrophages % 59 Fld Mesothelial Cell % 20 Ethyl Alcohol Procedures - Paracentesis - Major Preparation: Consent obtained, Ultrasound guidance, Sterile prep and drape, Local anesthesia Location: LLQ Technique: Catheter over needle Fluid: Clear, Sent for cell count, Sent for gram stain, Sent for culture, Volume - enter cc (8500) Aftercare: No complications, Patient tolerated well, Dressing applied PD Medical Decision Making - ED course Complexity details: reviewed results (low K and Mag similar to prior ED visit. Given supplement for them. asl), re-evaluated patient (he is feeling better regarding abd pain and fullness, Feels improved breathing and his oxygens ats actually increased.), d/w patient (patient here for hopeful paracentesis as having symptomatic fullness of abd pain and some dyspnea with pressure into chest. He has had this done several times and is in agreement. ) Departure - Departure Disposition: 01 Home, Self Care Clinical Impression: Ascites due to alcoholic cirrhosis, Dyspnea, Hypomagnesemia, Hypokalemia Condition: Stable Record reviewed to determine appropriate education?: Yes Instructions: ED Ascites Comments: On your blood test, you do have 2 of your electrolytes that are low, potassium and magnesium. I know he takes supplements for these. I would suggest you double up the dose of the supplement for both potassium and magnesium for the next week. Otherwise continue usual medications. We did take out approximately 8500 mL. Follow-up with the garageman tomorrow as scheduled in [place]. Return as needed. Forms: PCP List Discharge Date/Time: 12/17/22 18:30
[2022-12-17] MEDS ORDERED: THIAMINE 100 MG TABLET PO STA (15:05)
[2022-12-17] MEDS ORDERED: KETOROLAC 15 MG/ML VIAL IVP STA (15:05)
[2022-12-17 15:28] LABS: BASOPHILS % (AUTO) 0.2 %; EOSINOPHILS % (AUTO) 0.1 %; HCT - HEMATOCRIT 31.6 % (42.0-52.0); HGB - HEMOGLOBIN 10.4 g/dL (14.0-18.0); LYMPHOCYTES # (AUTO) 1.2 10^3/uL (1.5-3.5); LYMPHOCYTES % (AUTO) 11.4 %; MEAN CORPUSCULAR HEMOGLOBIN 28.5 pg (27.0-31.0); MEAN CORPUSCULAR HGB CONC 32.9 g/dL (32.0-36.0); MEAN CORPUSCULAR VOLUME 86.6 fL (80.0-94.0); MEAN PLATELET VOLUME 10.1 fL (7.4-11.4); MONOCYTES # (AUTO) 1.3 10^3/uL (0.0-1.0); MONOCYTES % (AUTO) 12.5 %; NEUTROPHILS # (AUTO) 7.7 10^3/uL (1.5-6.6); NEUTROPHILS % (AUTO) 75.4 %; PLT - PLATELET COUNT 71 10^3/uL (130-450); RED BLOOD COUNT 3.65 10^6/uL (4.70-6.10); RED CELL DISTRIBUTION WIDTH 19.9 % (12.0-15.0); WHITE BLOOD COUNT 10.2 x10^3/uL (4.8-10.8)
[2022-12-17 15:39] LABS: ALBUMIN 2.1 g/dL (3.2-5.5); ALBUMIN/GLOBULIN RATIO 0.5 (1.0-2.2); ALKALINE PHOSPHATASE 222 IU/L (42-121); ALT ALANINE AMINOTRANSFERASE 27 IU/L (10-60); AST ASPARTATE AMINOTRANSFERASE 70 IU/L (10-42); BILIRUBIN,TOTAL 1.5 mg/dL (0.2-1.0); BUN - BLOOD UREA NITROGEN 7 mg/dL (6-20); CALCIUM 7.8 mg/dL (8.5-10.3); CARBON DIOXIDE - CO2 25 mmol/L (21-32); CHLORIDE 99 mmol/L (101-111); CREATININE 0.5 mg/dL (0.6-1.2); ETOH - ETHANOL < 10.0 mg/dL; GFR - MDRD 194 (>89); GLUCOSE 121 mg/dL (70-100); LIPASE 61 U/L (22-51); MAGNESIUM 1.2 mg/dL (1.7-2.8); POTASSIUM 2.8 mmol/L (3.5-5.0); SODIUM 133 mmol/L (135-145); TOTAL PROTEIN 6.3 g/dL (6.7-8.2)
[2022-12-17] MEDS ORDERED: POTASSIUM BICARB 25 MEQ TABLET PO STA (15:54)
[2022-12-17] MEDS ORDERED: MAGNESIUM SULFATE 2 GRAM 2 GM/50 ML BAG IV ONE (15:54)
[2022-12-17 17:54] VITALS: O2SAT 98
[2022-12-17 18:31] VITALS: BP 110/58
[2022-12-17 18:46] LABS: BF CLARITY CLEAR; BF COLOR YELLOW; BF SOURCE PERITONEAL; CC,BF RBC < 3000 /mm^3; CC,BF WBC 82 /mm^3
[2022-12-17 20:14] LABS: EOSINOPHILS %,BODY FLUID 1 %; LYMPHOCYTES %,BODY FLUID 4 %; MACROPHAGES %,BODY FLUID 59 %; MESOTHELIAL %, BF 20 %; MONOCYTES %,BODY FLUID 3 %; NEUTROPHILS %, BF 13 %
== END 2022-12-17 18:30 | disposition home or self-care (01) ==
LOC: EDUNIT# → ED 14:50
DX: K70.31 Alcoholic cirrhosis of liver with ascites (principal); E87.6 Hypokalemia; E83.42 Hypomagnesemia; F17.200 Nicotine dependence, unspecified, uncomplicated
CPT/HCPCS: 36415; 49082; 80053; 80320; 82140; 83690; 83735; 85025; 87070; 87205; 89051; 96365; 96375; 99283; 99284; A9270

== ENCOUNTER 2022-12-25 09:23 | Outpatient (CLI) | payer MEDICAID ==
[2022-12-25] MEDS ORDERED: LIDOCAINE-MPF 1% 5 ML VIAL ONE (10:07)
--- NOTE | 2022-12-25 16:54 | Ultrasound Report ---
PROCEDURE: Abdominal Paracentesis INDICATIONS: ASCITES TECHNIQUE: The indications, alternatives, benefits, risks, and complications of the procedure were explained to the patient. Written informed consent was obtained and placed in the chart. The abdomen and pelvis were examined sonographically, and an appropriate site was chosen for paracentesis. The skin was pre pared and draped in the usual sterile fashion, and 1% lidocaine was infiltrated from the skin down th rough the peritoneal surface. A 19-gauge catheter-covered needle was then introduced into the perito rafael space, the catheter was advanced and the needle was withdrawn, and thereafter peritoneal fluid w as withdrawn. The catheter was then removed and a dressing was applied. The fluid was discarded if the clinician did not order diagnostic testing of the fluid. COMPARISON: 11/12/2022 FINDINGS: Access site: Right lower quadrant Needle: One-Step centesis catheter with introducer needle. Fluid volume and description: 5050 cc yellow ascites fluid Fluid sent for diagnostic testing: Not requested Medications: 1% lidocaine for local anaesthesia. Complications: None. IMPRESSION: Successful ultrasound-guided paracentesis. Reviewed by: Jaye Kramer MD on 12/25/2022 4:53 PM PDT Approved by: Jaye Kramer MD on 12/25/2022 4:53 PM PDT Station ID: [id number]
== END 2022-12-25 09:24 | disposition home or self-care (01) ==
LOC: DI 09:23
PROVIDERS: ATTEND Nurse Practitioner Acute Care
DX: K70.31 Alcoholic cirrhosis of liver with ascites (principal)
CPT/HCPCS: 49083

== ENCOUNTER 2023-01-12 21:03 | Outpatient (CLI) | payer MEDICAID | END 2023-01-12 23:59 | disposition critical access hospital (66) | LOC: EMS 21:03 | DX: R06.02 Shortness of breath (principal); R06.4 Hyperventilation; R18.8 Other ascites; F10.90 Alcohol use, unspecified, uncomplicated; R52 Pain, unspecified; F32.A Depression, unspecified | CPT/HCPCS: A0425; A0429; A0999 ==

== ENCOUNTER 2023-01-12 21:28 | Emergency (ER) | payer MEDICAID ==
[2023-01-12 22:14] LABS: BASOPHILS % (AUTO) 0.3 %; EOSINOPHILS % (AUTO) 0.1 %; HGB - HEMOGLOBIN 11.5 g/dL (14.0-18.0); LYMPHOCYTES # (AUTO) 2.3 10^3/uL (1.5-3.5); LYMPHOCYTES % (AUTO) 22.8 %; MEAN CORPUSCULAR HGB CONC 31.9 g/dL (32.0-36.0); MEAN CORPUSCULAR VOLUME 84.5 fL (80.0-94.0); MEAN PLATELET VOLUME 11.3 fL (7.4-11.4); MONOCYTES # (AUTO) 0.8 10^3/uL (0.0-1.0); MONOCYTES % (AUTO) 7.5 %; PLT - PLATELET COUNT 91 10^3/uL (130-450); RED BLOOD COUNT 4.26 10^6/uL (4.70-6.10); RED CELL DISTRIBUTION WIDTH 20.6 % (12.0-15.0); WHITE BLOOD COUNT 10.2 x10^3/uL (4.8-10.8)
[2023-01-12 22:19] LABS: INR 1.4 (0.8-1.2); PT - PROTHROMBIN TIME 14.9 secs (9.9-12.6)
[2023-01-12 22:23] LABS: ALBUMIN 3.2 g/dL (3.2-5.5); ALBUMIN/GLOBULIN RATIO 0.8 (1.0-2.2); BILIRUBIN,TOTAL 1.4 mg/dL (0.2-1.0); CALCIUM 8.6 mg/dL (8.5-10.3); CREATININE 0.5 mg/dL (0.6-1.3); ETOH - ETHANOL 353.1 mg/dL; POTASSIUM 2.9 mmol/L (3.5-4.5); TOTAL PROTEIN 7.2 g/dL (6.4-8.9)
[2023-01-12] MEDS ORDERED: POTASSIUM CHLORIDE 20 MEQ TABLET PO STA (22:28)
[2023-01-12] MEDS ORDERED: SODIUM CHLORIDE 0.9% 1,000 ML IV STA (22:28)
[2023-01-12 22:34] LABS: PLATELET ESTIMATE, MANUAL DECREASED (<130,000) (NORMAL); PLATELET MORPHOLOGY NORMAL APPEARANCE (NORMAL); RBC MORPHOLOGY (MULTIPLE) 3+ ANISOCYTOSIS (NORMAL); SLIDE REVIEW? Indicated
--- NOTE | 2023-01-12 23:06 | ED Physician Documentation ---
History of Present Illness - Stated complaint Stated Complaint: SOA - Chief complaint Chief Complaint: Neuro - History obtained from History obtained from: Patient - Additonal information Additional information: Patient is a 32-year-old male with a history of alcoholic cirrhosis presenting for evaluation of feeling short of air and abdominal distention. Patient last had a paracentesis On December 25. He went back to radiology a week later but they determined he did not have enough fluid for drainage at that time and rescheduled him for this past week. He states he was not able to make the sara ointment due to issues with transportation. He states that the distention has caused worsening discomfort and so he started drinking today to help manage his symptoms. He said prior to today he had been sober for almost a month.Denies fever and chest pain. Review of Systems Constitutional: denies: Fever Cardiac: denies: Chest pain / pressure Respiratory: reports: Dyspnea GI: reports: Abdominal Pain. denies: Vomiting : denies: Dysuria PD PAST MEDICAL HISTORY - Past Medical History Cardiovascular: None Respiratory: None Neuro: None Endocrine/Autoimmune: None GI: GERD, Esophageal varices, GI bleed, Pancreatitis, Cirrhosis : None HEENT: None Psych: Depression Musculoskeletal: None Derm: None - Past Surgical History Past Surgical History: No General: EGD - Present Medications Home Medications: Ambulatory Orders Medication Instructions Recorded Confirmed Omeprazole Magnesium 20 mg PO QDAC 07/02/22 11/29/22 Multivitamin [Theragran] 1 tab PO DAILY 10/23/22 11/23/22 Furosemide [Lasix] 20 mg PO DAILY #30 tablet 11/01/22 11/23/22 Lactulose 15 ml PO DAILY PRN #30 ea 11/01/22 11/23/22 Thiamine [Vitamin B-1] 100 mg PO DAILY tab 11/01/22 11/23/22 Calcium Carbonate [Tums (Calcium 500 mg PO BID tab 11/13/22 11/23/22 Carbonate 500mg)] Spironolactone [Aldactone] 100 mg PO DAILY #120 tab 11/13/22 11/23/22 oxyCODONE [Roxicodone] 5 mg PO Q4HR PRN #30 tab 11/13/22 11/23/22 HYDROmorphone [Dilaudid] 2 mg PO Q6H PRN #10 tablet 11/23/22 Ibuprofen [Ibu-200] 3 tab PO DAILY PRN 11/23/22 11/23/22 Magnesium Oxide 1 tab PO DAILY 11/23/22 11/29/22 Metoprolol Succinate [Toprol Xl] 50 mg PO DAILY #30 tab 11/23/22 Potassium Chloride 3 cap PO DAILY 11/23/22 11/29/22 Sertraline [Zoloft] 50 mg PO DAILY #60 tab 11/23/22 11/29/22 oxyCODONE [Roxicodone] 5 - 10 mg PO Q4HR PRN #10 tab 11/23/22 11/29/22 HYDROmorphone [Dilaudid] 2 mg PO Q6H PRN #20 tablet 11/29/22 Magnesium Oxide [Mag Ox] 400 mg PO DAILY #30 tablet 11/29/22 - Allergies Allergies/Adverse Reactions: Allergies Allergy/AdvReac Type Severity Reaction Status Date / Time No Known Drug Allergies Allergy Verified 01/12/23 21:48 - Social History Does the pt smoke?: Yes Smoking Status: Current every day smoker Does the pt drink ETOH?: Yes Does the pt have substance abuse?: Yes - Immunizations Immunizations are current?: Yes - POLST Patient has POLST: No PD ED PE NORMAL - General General: Alert and oriented X 3, No acute distress, Well developed/nourished, Other (Chronically ill-appearing; Smells of EtOH) - HEENT HEENT: Atraumatic - Neck Neck: Supple, no meningeal sign - Cardiac Cardiac: RRR - Respiratory Respiratory: No respiratory distress, Clear bilaterally - Abdomen Abdomen: Normal bowel sounds, Soft, Other (Abdominal distention, ascites, generalized tenderness) - Derm Derm: Warm and dry - Neuro Neuro: Alert and oriented X 3, No motor deficit, Normal speech Results - Vitals Vitals: Vital Signs - 24 hr 01/12/23 01/12/23 01/13/23 21:30 21:37 01:48 Temperature 36.5 C Heart Rate 66 83 Respiratory 16 16 Rate Blood Pressure 109/70 111/63 O2 Saturation 100 100 100 01/13/23 03:59 Temperature Heart Rate 91 Respiratory 16 Rate Blood Pressure 111/67 O2 Saturation 99 Oxygen O2 Source Room air - EKG (time done) 7635 EKG releavant findings:: EKG personally interpreted by author of this note. Relevant findings are: Rate 79, normal sinus rhythm, QTc 486, no STEMI - Labs Labs: Laboratory Tests 01/12/23 01/12/23 01/12/23 22:06 22:06 22:06 WBC 10.2 RBC 4.26 L Hgb 11.5 L Hct 36.0 L MCV 84.5 MCH 27.0 MCHC 31.9 L RDW 20.6 H Plt Count 91 L MPV 11.3 Neut # (Auto) 7.0 H Lymph # (Auto) 2.3 [place] # (Auto) 0.8 Eos # (Auto) 0.0 Baso # (Auto) 0.0 Absolute Nucleated RBC 0.00 Nucleated RBC % 0.0 Manual Slide Review Indicated Platelet Estimate DECREASED (<130,000) Platelet Morphology NORMAL APPEARANCE RBC Morph Micro Appear 3+ ANISOCYTOSIS PT 14.9 H INR 1.4 H Sodium 137 Potassium 2.9 L Chloride 99 L Carbon Dioxide 20 L Anion Gap 18.0 H BUN 3 L Creatinine 0.5 L Estimated GFR (MDRD) 194 Glucose 92 Calcium 8.6 Total Bilirubin 1.4 H AST 72 H ALT 20 Alkaline Phosphatase 279 H Total Protein 7.2 Albumin 3.2 Globulin 4.0 Albumin/Globulin Ratio 0.8 L Lipase 41 Ethyl Alcohol 353.1 Procedures - Paracentesis - Major Preparation: Consent obtained, Ultrasound guidance, Sterile prep and drape, Local anesthesia Location: Other (Right lower quadrant initially attempted but catheter stopped draining after 200 cc and would not drain further despite catheter repositioning. Left lower quadrant was then accessed for procedure with 6 L removed.) Technique: Z-tract, Seldinger, Catheter over needle Fluid: Clear, Volume - enter cc (6L) Aftercare: Patient tolerated well, Dressing applied, Other PD Medical Decision Making - ED course Complexity details: reviewed results, re-evaluated patient, d/w patient ED course: Patient is a 32-year-old with a history of liver cirrhosis with frequent presentations to the emergency department for paracentesis. Patient states he was not able to go to his outpatient appointment this past week due to transportation issues and reports feeling short of air due to his abdominal distention. Labs reviewed including CBC, chemistries, INR and alcohol. Potassium is slightly low at 2.9. Patient is tolerating p.o. replacement. Alcohol level around 350. Patient is speaking clearly. Chest x-ray which I reviewed does not show pneumonia. Patient was consented for a paracentesis, he is very familiar with the procedure as well as risks and benefits. A total of 6 L was drained and patient reports feeling much better. Repeat abdominal exam is benign. Patient received IV albumin due to amount of fluid removed. He states he is feeling much better and is ready to go home. He is called a family member to pick him up. He clinically is sober with clear speech and steady gait. He understands the importance of outpatient follow-up and also coming up with a plan for transportation For outpatient paracentesis. Departure - Departure Clinical Impression: Abdominal ascites, Hypokalemia, Alcohol intoxication Condition: Fair Instructions: Paracentesis Dc, ED Ascites, ED Alcohol Intoxication, ED Potassium Deficiency Comments: You had 6 L of fluid drained from your abdomen. You do need to work on figuring out transportation so that you can have this done as an outpatient and are not resorting to managing your symptoms with alcohol. Please have follow-up with your primary care provider and GI doctor. Your potassium level was low again today. Please make sure that you are taking your replacements. Return to the emergency department with any concerns. Forms: PCP List
--- NOTE | 2023-01-12 23:42 | XRAY Report ---
PROCEDURE: Chest 1 View X-Ray INDICATIONS: SOA TECHNIQUE: One view of the chest was acquired. COMPARISON: 11/22/2022 FINDINGS: Surgical changes and devices: None. Lungs and pleura: Low lung volumes. No dense consolidation or pleural effusion. Mediastinum: Normal heart size. Bones and chest wall: No suspicious bony lesions. Overlying soft tissues appear unremarkable. IMPRESSION: No acute radiographic abnormality on this single view chest. Reviewed by: Sánchez Wetzel MD on 01/12/2023 11:41 PM PDT Approved by: Sánchez Wetzel MD on 01/12/2023 11:41 PM PDT Station ID: [id number]
[2023-01-13] MEDS ORDERED: oxyCODONE 5 MG TABLET PO STA (00:25)
[2023-01-13] MEDS ORDERED: ALBUMIN 25% 12.5 GM/50 ML VIAL IV STA ×2 (01:43→02:19)
[2023-01-13 04:01] VITALS: BP 111/67; O2SAT 99
== END 2023-01-13 04:30 | disposition home or self-care (01) ==
LOC: EDUNIT# → ED 21:28
DX: R18.8 Other ascites (principal); F10.129 Alcohol abuse with intoxication, unspecified; Y90.8 Blood alcohol level of 240 mg/100 ml or more; F17.200 Nicotine dependence, unspecified, uncomplicated
CPT/HCPCS: 36415; 49082; 71045; 80053; 80320; 83690; 85025; 85610; 93005; 96365; 96366; 99284; A9270; P9047

== ENCOUNTER 2023-01-23 18:12 | Outpatient (CLI) | payer MEDICAID | END 2023-01-23 23:59 | disposition left against medical advice (07) | LOC: EMS 18:12 | DX: R06.02 Shortness of breath (principal) ==

== ENCOUNTER 2023-01-28 08:49 | Outpatient (CLI) | payer MEDICAID ==
--- NOTE | 2023-01-28 17:33 | Ultrasound Report ---
PROCEDURE: Abdominal Paracentesis INDICATIONS: ASCITES TECHNIQUE: The indications, alternatives, benefits, risks, and complications of the procedure were explained to the patient. Written informed consent was obtained and placed in the chart. The abdomen and pelvis were examined sonographically, and an appropriate site was chosen for paracentesis. The skin was pre pared and draped in the usual sterile fashion, and 1% lidocaine was infiltrated from the skin down th rough the peritoneal surface. A 19-gauge catheter-covered needle was then introduced into the perito rafael space, the catheter was advanced and the needle was withdrawn, and thereafter peritoneal fluid w as withdrawn. The catheter was then removed and a dressing was applied. The fluid was discarded if the clinician did not order diagnostic testing of the fluid. COMPARISON: 01/01/2023 FINDINGS: Access site: Right lower quadrant of the abdomen Needle: One-Step centesis catheter with introducer needle. Fluid volume and description: 5.2 L of clear, straw-colored ascites removed. Fluid sent for diagnostic testing: Therapeutic procedure. No fluid sent for testing. Medications: 1% lidocaine for local anaesthesia. Complications: None. IMPRESSION: Successful ultrasound-guided paracentesis. Patient was sent to the MAC for albumin administration se condary to volume of ascites removed today. Reviewed by: Jay Tesfaye MD on 01/28/2023 5:32 PM PDT Approved by: Jay Tesfaye MD on 01/28/2023 5:32 PM PDT Station ID: [id number]
== END 2023-01-28 08:50 | disposition home or self-care (01) ==
LOC: DI 08:49
PROVIDERS: ATTEND Nurse Practitioner Acute Care
DX: K70.31 Alcoholic cirrhosis of liver with ascites (principal)
CPT/HCPCS: 49083

== ENCOUNTER 2023-02-05 11:19 | Outpatient (CLI) | payer MEDICAID | END 2023-02-05 11:20 | disposition left against medical advice (07) | LOC: EMS 11:19 | DX: R10.817 Generalized abdominal tenderness (principal); R14.0 Abdominal distension (gaseous); R11.0 Nausea; R55 Syncope and collapse ==

== ENCOUNTER 2023-02-11 08:09 | Outpatient (CLI) | payer MEDICAID ==
--- NOTE | 2023-02-11 10:48 | Ultrasound Report ---
PROCEDURE: Abdomen Limited INDICATIONS: ASCITES TECHNIQUE: Real-time focused scanning was performed of the abdomen, with image documentation. COMPARISONS: Ultrasound 01/28/2023 FINDINGS: Ascites present in all 4 quadrants. However, not enough fluid for safe paracentesis. IMPRESSION: Ascites is present, however not enough for safe paracentesis. Findings were discussed with patient at bedside by Dr. Tomas Reviewed by: Jamison Hernandez MD on 02/11/2023 10:46 AM PDT Approved by: Jamison Hernandez MD on 02/11/2023 10:46 AM PDT Station ID: [id number]
== END 2023-02-11 08:10 | disposition home or self-care (01) ==
LOC: DI 08:09
PROVIDERS: ATTEND Nurse Practitioner Acute Care
DX: K70.31 Alcoholic cirrhosis of liver with ascites (principal)

== ENCOUNTER 2023-02-21 08:24 | Outpatient (CLI) | payer MEDICAID ==
[2023-02-21 14:42] LABS: BASOPHILS % (AUTO) 0.2 %; EOSINOPHILS # (AUTO) 0.1 10^3/uL (0.0-0.7); EOSINOPHILS % (AUTO) 0.6 %; HCT - HEMATOCRIT 37.7 % (42.0-52.0); LYMPHOCYTES # (AUTO) 1.4 10^3/uL (1.5-3.5); LYMPHOCYTES % (AUTO) 14.4 %; MEAN CORPUSCULAR HEMOGLOBIN 27.6 pg (27.0-31.0); MEAN CORPUSCULAR HGB CONC 31.8 g/dL (32.0-36.0); MEAN CORPUSCULAR VOLUME 86.9 fL (80.0-94.0); MEAN PLATELET VOLUME 11.3 fL (7.4-11.4); MONOCYTES # (AUTO) 0.5 10^3/uL (0.0-1.0); MONOCYTES % (AUTO) 5.3 %; NEUTROPHILS # (AUTO) 7.6 10^3/uL (1.5-6.6); NEUTROPHILS % (AUTO) 79.3 %; PLT - PLATELET COUNT 74 10^3/uL (130-450); RED BLOOD COUNT 4.34 10^6/uL (4.70-6.10); RED CELL DISTRIBUTION WIDTH 22.2 % (12.0-15.0); WHITE BLOOD COUNT 9.6 x10^3/uL (4.8-10.8)
[2023-02-21 14:47] LABS: INR 1.6 (0.8-1.2); PT - PROTHROMBIN TIME 17.1 secs (9.9-12.6)
[2023-02-21 15:10] LABS: SLIDE REVIEW? Indicated
[2023-02-21 15:17] LABS: PLATELET ESTIMATE, MANUAL DECREASED (<130,000) (NORMAL); PLATELET MORPHOLOGY NORMAL APPEARANCE (NORMAL); RBC MORPHOLOGY (MULTIPLE) 2+ ANISOCYTOSIS (NORMAL); WBC MORPHOLOGY (MULTIPLE) NORMAL APPEARANCE (NORMAL)
[2023-02-21 15:20] LABS: ALBUMIN 3.7 g/dL (3.2-5.5); MAGNESIUM 1.1 mg/dL (1.7-2.3)
[2023-02-21 15:27] LABS: THYROID STIMULATING HORMONE 0.71 uIU/mL (0.34-5.60)
[2023-02-21 15:45] LABS: ALBUMIN/GLOBULIN RATIO 0.9 (1.0-2.2); BILIRUBIN,TOTAL 1.7 mg/dL (0.2-1.0); CALCIUM 9.5 mg/dL (8.5-10.3); CREATININE 0.5 mg/dL (0.6-1.3); POTASSIUM 2.5 mmol/L (3.5-4.5); TOTAL PROTEIN 7.6 g/dL (6.4-8.9)
[2023-02-22 16:08] LABS: CALCIUM IONIZED SERUM 4.9 mg/dL (4.5-5.6)
[2023-02-23 14:07] LABS: THYROGLOBULIN ANTIBODY <1.0 IU/mL (0.0-0.9); THYROID PEROXIDASE (TPO) AB 22 IU/mL (0-34)
== END 2023-02-21 08:25 | disposition home or self-care (01) ==
LOC: LAB.S 08:24
PROVIDERS: ATTEND Nurse Practitioner Acute Care
DX: K70.31 Alcoholic cirrhosis of liver with ascites (principal); E83.51 Hypocalcemia; E05.90 Thyrotoxicosis, unspecified without thyrotoxic crisis or storm; Z13.0 Encounter for screening for diseases of the blood and blood-forming organs and certain disorders involving the immune mechanism; E83.42 Hypomagnesemia
CPT/HCPCS: 36415; 80053; 82330; 83735; 84443; 85025; 85610; 86376; 86800

== ENCOUNTER 2023-03-02 15:38 | Outpatient (CLI) | payer MEDICAID | END 2023-03-02 15:39 | disposition critical access hospital (66) | LOC: EMS 15:38 | DX: R10.84 Generalized abdominal pain (principal); R14.0 Abdominal distension (gaseous); R53.1 Weakness; F10.90 Alcohol use, unspecified, uncomplicated; R00.0 Tachycardia, unspecified; R40.4 Transient alteration of awareness; R06.81 Apnea, not elsewhere classified | CPT/HCPCS: A0425; A0427; A0999 ==

== ENCOUNTER 2023-03-02 16:01 | Emergency (ER) | payer MEDICAID ==
[2023-03-02] MEDS ORDERED: CALCIUM GLUC 1,000MG/50ML-NACL 1,000 MG/50 ML BAG IV STA (16:06)
[2023-03-02] MEDS ORDERED: THIAMINE INJ 100 MG in SODIUM CHLORIDE 0.9% 50 ML IV STA (16:06)
--- NOTE | 2023-03-02 16:09 | ED Physician Documentation ---
PD HPI ALTERED MENTAL STATUS - Stated complaint Stated Complaint: AMS - History obtained from History obtained from: Patient, EMS - Additional information Additional information: 32-year-old gentleman with history of alcoholism and cirrhosis presents by ambulance for altered mental status and complaints of abdominal pain. History is limited from the patient as he is altered. Reportedly EMS was summoned for abdominal pain and he is scheduled for paracentesis tomorrow. On the way here he had episodes of apnea and carpopedal spasms and feeling like he is generally weak. No reports of trauma. PD PAST MEDICAL HISTORY - Past Medical History Cardiovascular: None Respiratory: None Neuro: None Endocrine/Autoimmune: None GI: GERD, Esophageal varices, GI bleed, Pancreatitis, Cirrhosis : None HEENT: None Psych: Depression Musculoskeletal: None Derm: None - Past Surgical History Past Surgical History: No General: EGD - Present Medications Home Medications: Ambulatory Orders Medication Instructions Recorded Confirmed Omeprazole Magnesium 20 mg PO QDAC 07/02/22 11/29/22 Multivitamin [Theragran] 1 tab PO DAILY 10/23/22 11/23/22 Furosemide [Lasix] 20 mg PO DAILY #30 tablet 11/01/22 11/23/22 Lactulose 15 ml PO DAILY PRN #30 ea 11/01/22 11/23/22 Thiamine [Vitamin B-1] 100 mg PO DAILY tab 11/01/22 11/23/22 Calcium Carbonate [Tums (Calcium 500 mg PO BID tab 11/13/22 11/23/22 Carbonate 500mg)] Spironolactone [Aldactone] 100 mg PO DAILY #120 tab 11/13/22 11/23/22 oxyCODONE [Roxicodone] 5 mg PO Q4HR PRN #30 tab 11/13/22 11/23/22 HYDROmorphone [Dilaudid] 2 mg PO Q6H PRN #10 tablet 11/23/22 Ibuprofen [Ibu-200] 3 tab PO DAILY PRN 11/23/22 11/23/22 Magnesium Oxide 1 tab PO DAILY 11/23/22 11/29/22 Metoprolol Succinate [Toprol Xl] 50 mg PO DAILY #30 tab 11/23/22 Potassium Chloride 3 cap PO DAILY 11/23/22 11/29/22 Sertraline [Zoloft] 50 mg PO DAILY #60 tab 11/23/22 11/29/22 oxyCODONE [Roxicodone] 5 - 10 mg PO Q4HR PRN #10 tab 11/23/22 11/29/22 HYDROmorphone [Dilaudid] 2 mg PO Q6H PRN #20 tablet 11/29/22 Magnesium Oxide [Mag Ox] 400 mg PO DAILY #30 tablet 11/29/22 Calcium Carbonate [Tums (Calcium 500 mg PO BID #20 tablet 03/02/23 Carbonate 500mg)] Magnesium Oxide [Mag Ox] 400 mg PO BIDWM #20 tablet 03/02/23 Potassium Chloride [K-Dur] 20 meq PO BIDWM #10 tablet 03/02/23 - Allergies Allergies/Adverse Reactions: Allergies Allergy/AdvReac Type Severity Reaction Status Date / Time No Known Drug Allergies Allergy Verified 03/02/23 16:06 - Social History Does the pt smoke?: Yes Smoking Status: Current every day smoker Does the pt drink ETOH?: Yes Does the pt have substance abuse?: Yes - Immunizations Immunizations are current?: Yes - POLST Patient has POLST: No PD ED PE NORMAL - Vitals Vital signs reviewed: Yes - General General: Other (He is alert alert and oriented to person and place but not time or events. He falls asleep easily. During initial evaluation he has carpopedal spasm on the right arm while the blood pressure cuff is inflated.) - HEENT HEENT: Other (Significant nystagmus with positive Chvostek sign) - Neck Neck: Supple, no meningeal sign, No bony TTP - Cardiac Cardiac: RRR, No murmur - Respiratory Respiratory: No respiratory distress, Clear bilaterally - Abdomen Abdomen: Non tender, Other (Not tense or significantly distended with ascites) - Derm Derm: Normal color, Warm and dry - Neuro Neuro: Other (Alert and oriented to person and place but not time or events) Eye Opening: Spontaneous Motor: Obeys Commands Verbal: Confused GCS Score: 14 Results - Vitals Vitals: Vital Signs - 24 hr 03/02/23 03/02/23 03/02/23 16:06 16:19 16:54 Temperature 35.9 C L Heart Rate 87 94 Respiratory 22 19 Rate Blood Pressure 136/75 H 135/98 H 117/73 O2 Saturation 100 100 100 If not protocol 2 : Oxygen Flow, liters/minute Oxygen O2 Source Room air Oxygen Flow Rate 2 - EKG (time done) 1614 EKG releavant findings:: EKG personally interpreted by author of this note. Relevant findings are: Rate: Rate (enter#) (112) Rhythm: Sinus tachycardia [place]: Normal Intervals: Normal [place], Prolonged QT QRS: Normal Ischemia: Q waves (v1/1). No: ST elevation c/w ischemia, ST depression Computer interpretation: Agree with computer - Labs Labs: Laboratory Tests 03/02/23 03/02/23 03/02/23 16:08 16:08 16:08 WBC 14.3 H RBC 4.71 Hgb 13.2 L Hct 39.7 L MCV 84.3 MCH 28.0 MCHC 33.2 RDW 22.3 H Plt Count 233 MPV 9.6 Neut # (Auto) 8.7 H Lymph # (Auto) 4.1 H [place] # (Auto) 1.3 H Eos # (Auto) 0.0 Baso # (Auto) 0.1 Absolute Nucleated RBC 0.00 Nucleated RBC % 0.0 Manual Slide Review Indicated Platelet Estimate NORMAL (130-450,000) Platelet Morphology NORMAL APPEARANCE RBC Morph Micro Appear 1+ TARGET CELLS VBG pH 7.526 H VBG pCO2 26.1 L VBG pO2 39.0 VBG HCO3 21.1 L VBG Total CO2 21.9 L VBG O2 Saturation 72.5 VBG Base Excess -0.1 Ionized Calcium Sodium 137 Potassium 2.9 L Chloride 96 L Carbon Dioxide 21 Anion Gap 20.0 H BUN 5 L Creatinine 0.4 L Estimated GFR (MDRD) 251 Glucose 98 Calcium 8.0 L Phosphorus 2.2 L Magnesium 1.4 L Total Bilirubin 1.7 H AST 90 H ALT 32 Alkaline Phosphatase 304 H Ammonia Total Protein 7.2 Albumin 3.6 Globulin 3.6 Albumin/Globulin Ratio 1.0 Lipase 24 Salicylates < 1.5 Acetaminophen < 0.1 Ethyl Alcohol 401.3 03/02/23 03/02/23 16:08 16:08 WBC RBC Hgb Hct MCV MCH MCHC RDW Plt Count MPV Neut # (Auto) Lymph # (Auto) [place] # (Auto) Eos # (Auto) Baso # (Auto) Absolute Nucleated RBC Nucleated RBC % Manual Slide Review Platelet Estimate Platelet Morphology RBC Morph Micro Appear VBG pH 7.526 H VBG pCO2 VBG pO2 VBG HCO3 VBG Total CO2 VBG O2 Saturation VBG Base Excess Ionized Calcium 0.93 L Sodium Potassium Chloride Carbon Dioxide Anion Gap BUN Creatinine Estimated GFR (MDRD) Glucose Calcium Phosphorus Magnesium Total Bilirubin AST ALT Alkaline Phosphatase Ammonia 36.0 Total Protein Albumin Globulin Albumin/Globulin Ratio Lipase Salicylates Acetaminophen Ethyl Alcohol PD Medical Decision Making - ED course ED course: 32-year-old gentleman with alcohol addiction presents drunk with electrolyte abnormalities causing carpopedal spasms And notable Trousseau and Chvostek sign. He has on work-up nonspecific leukocytosis on CBC, he has a respiratory alkalosis on VBG, calcium level, magnesium level, phosphorus level, potassium all low and repletion ordered. Blood alcohol consistent with severe intoxication at over 400. He had received some of the electrolyte supplementation I had ordered but he started to become belligerent with the nurse. We tried verbal de-escalation but he demanded to leave. Given his intoxication he is not competent to leave AGAINST MEDICAL ADVICE, and he subsequently eloped. Pursuant to our elopement policy, the following actions were taken Aliya Painter was called overhead Security was notified Rosaura Basurto was notified The nurse accounts manager was notified and I also called Scotty Tim who is the AO. I entered an event report Departure - Departure Disposition: ED Elope Clinical Impression: Hypomagnesemia, Alcohol intoxication, Alcoholic cirrhosis, Hypocalcemia, Hypokalemia Condition: Good Record reviewed to determine appropriate education?: Yes Instructions: ED Alcohol Intoxication Prescriptions: Potassium Chloride [K-Dur] 20 meq PO BIDWM #10 tablet Magnesium Oxide [Mag Ox] 400 mg PO BIDWM #20 tablet Calcium Carbonate [Tums (Calcium Carbonate 500mg)] 500 mg PO BID #20 tablet Comments: Please stop drinking, follow-up with your primary care physician next available appointment. Consider inpatient detox We think you would benefit from admission for detoxification and/or rehabilitation from alcohol and/or drugs. The closest facility that does this is in [place]. It is: [facility] [address] [place] [address] Call them at [phone] to arrange an intake appointment.
[2023-03-02 16:14] VITALS: O2SAT 100
[2023-03-02 16:17] LABS: BASOPHILS # (AUTO) 0.1 10^3/uL (0.0-0.1); BASOPHILS % (AUTO) 0.7 %; EOSINOPHILS % (AUTO) 0.2 %; HCT - HEMATOCRIT 39.7 % (42.0-52.0); HGB - HEMOGLOBIN 13.2 g/dL (14.0-18.0); LYMPHOCYTES # (AUTO) 4.1 10^3/uL (1.5-3.5); LYMPHOCYTES % (AUTO) 28.8 %; MEAN CORPUSCULAR HGB CONC 33.2 g/dL (32.0-36.0); MEAN CORPUSCULAR VOLUME 84.3 fL (80.0-94.0); MEAN PLATELET VOLUME 9.6 fL (7.4-11.4); MONOCYTES # (AUTO) 1.3 10^3/uL (0.0-1.0); MONOCYTES % (AUTO) 9.3 %; NEUTROPHILS # (AUTO) 8.7 10^3/uL (1.5-6.6); NEUTROPHILS % (AUTO) 60.8 %; PLT - PLATELET COUNT 233 10^3/uL (130-450); RED BLOOD COUNT 4.71 10^6/uL (4.70-6.10); RED CELL DISTRIBUTION WIDTH 22.3 % (12.0-15.0); VBG BASE EXCESS -0.1 mmol/L (-2 - +2); VBG HCO3 21.1 mmol/L (23-28); VBG PCO2 26.1 mmHg (41-51); VBG PH 7.526 (7.31-7.41); VBG TOTAL CO2 21.9 mmol/L (24-29); WHITE BLOOD COUNT 14.3 x10^3/uL (4.8-10.8)
[2023-03-02 16:18] LABS: VBG OXYGEN SATURATION 72.5 % (60-80)
[2023-03-02 16:19] LABS: CALCIUM, IONIZED 0.93 mmol/L (1.15-1.33); VBG PH 7.526 (7.31-7.41)
[2023-03-02 16:21] LABS: SLIDE REVIEW? Indicated
[2023-03-02 16:34] LABS: ALBUMIN 3.6 g/dL (3.2-5.5); ETOH - ETHANOL 401.3 mg/dL; LIPASE 24 U/L (11-82); MAGNESIUM 1.4 mg/dL (1.7-2.3); PHOSPHORUS 2.2 mg/dL (2.5-5.0)
[2023-03-02 16:37] LABS: PLATELET ESTIMATE, MANUAL NORMAL (130-450,000) (NORMAL); PLATELET MORPHOLOGY NORMAL APPEARANCE (NORMAL)
[2023-03-02] MEDS ORDERED: MAGNESIUM SULFATE 2 GRAM 2 GM/50 ML BAG IV ONE (16:38)
[2023-03-02 16:39] LABS: ACETAMINOPHEN < 0.1 ug/mL; ALKALINE PHOSPHATASE 304 IU/L (42-121); ALT ALANINE AMINOTRANSFERASE 32 IU/L (10-60); AST ASPARTATE AMINOTRANSFERASE 90 IU/L (10-42); BILIRUBIN,TOTAL 1.7 mg/dL (0.2-1.0); BUN - BLOOD UREA NITROGEN 5 mg/dL (6-20); CARBON DIOXIDE - CO2 21 mmol/L (21-32); CHLORIDE 96 mmol/L (101-111); CREATININE 0.4 mg/dL (0.6-1.3); GFR - MDRD 251 (>89); GLUCOSE 98 mg/dL (74-104); POTASSIUM 2.9 mmol/L (3.5-4.5); SALICYLATE < 1.5 mg/dL; SODIUM 137 mmol/L (135-145); TOTAL PROTEIN 7.2 g/dL (6.4-8.9)
[2023-03-02] MEDS ORDERED: POTASSIUM CHLOR 10 MEQ/100 ML 10 MEQ/100 ML BAG IV SCH (17:00)
[2023-03-02] MEDS ORDERED: NEUTRA-PHOS 250 MG TABLET PO SCH (17:00)
[2023-03-02 17:15] VITALS: BP 117/73
== END 2023-03-02 17:22 | disposition left against medical advice (07) ==
LOC: EDUNIT# → ED 16:01
DX: T51.0X1A Toxic effect of ethanol, accidental (unintentional), initial encounter (principal); Y90.8 Blood alcohol level of 240 mg/100 ml or more; F10.229 Alcohol dependence with intoxication, unspecified; E87.3 Alkalosis; E83.51 Hypocalcemia; E83.42 Hypomagnesemia; E83.39 Other disorders of phosphorus metabolism; E87.6 Hypokalemia; R29.0 Tetany; K70.30 Alcoholic cirrhosis of liver without ascites; F17.200 Nicotine dependence, unspecified, uncomplicated
CPT/HCPCS: 36415; 80053; 80307; 80320; 80329; 82140; 82330; 82803; 83690; 83735; 84100; 85025; 93005; 96374; 96375; 99284; J3411; J7040

== ENCOUNTER 2023-03-03 06:04 | Outpatient (CLI) | payer MEDICAID | END 2023-03-03 06:05 | disposition critical access hospital (66) | LOC: EMS 06:04 | DX: R09.89 Other specified symptoms and signs involving the circulatory and respiratory systems (principal) | CPT/HCPCS: A0425; A0429 ==

== ENCOUNTER 2023-03-03 06:33 | Emergency (ER) | payer MEDICAID ==
--- NOTE | 2023-03-03 06:43 | ED Physician Documentation ---
History of Present Illness - Stated complaint Stated Complaint: SOA - History obtained from History obtained from: Patient, EMS - Additonal information Additional information: The patient returns to the emergency department via EMS with chief complaint of shortness of breath. He called the crisis line for unclear reasons early this morning and crisis line called 911 because they heard the patient wheezing over the phone and they were concerned for his general health. The title i coordinator states that the patient did not make any suicidal or homicidal statements. The patient was just seen here yesterday and found to have multiple electrolyte abnormalities as well as an ethanol level of 400. At some point, he sobered up enough to become resistant to the idea of staying and ultimately eloped. The patient states that he has not had any alcohol since. No vomiting though he has been nauseated. The patient had stated yesterday that he was scheduled today to get a paracentesis, though he cannot verify this today. He denies any fevers or chills. No chest pain. He does have some shortness of breath. No other complaints at this time. He has a longstanding history of alcohol abuse/addiction and end-stage liver disease. He has been here multiple times for both of these and had paracentesis repeatedly through the ED. PD PAST MEDICAL HISTORY - Past Medical History Cardiovascular: None Respiratory: None Neuro: None Endocrine/Autoimmune: None GI: GERD, Esophageal varices, GI bleed, Pancreatitis, Cirrhosis : None HEENT: None Psych: Depression Musculoskeletal: None Derm: None - Past Surgical History Past Surgical History: No General: EGD - Present Medications Home Medications: Ambulatory Orders Medication Instructions Recorded Confirmed Omeprazole Magnesium 20 mg PO QDAC 07/02/22 11/29/22 Multivitamin [Theragran] 1 tab PO DAILY 10/23/22 11/23/22 Furosemide [Lasix] 20 mg PO DAILY #30 tablet 11/01/22 11/23/22 Lactulose 15 ml PO DAILY PRN #30 ea 11/01/22 11/23/22 Thiamine [Vitamin B-1] 100 mg PO DAILY tab 11/01/22 11/23/22 Calcium Carbonate [Tums (Calcium 500 mg PO BID tab 11/13/22 11/23/22 Carbonate 500mg)] Spironolactone [Aldactone] 100 mg PO DAILY #120 tab 11/13/22 11/23/22 oxyCODONE [Roxicodone] 5 mg PO Q4HR PRN #30 tab 11/13/22 11/23/22 HYDROmorphone [Dilaudid] 2 mg PO Q6H PRN #10 tablet 11/23/22 Ibuprofen [Ibu-200] 3 tab PO DAILY PRN 11/23/22 11/23/22 Magnesium Oxide 1 tab PO DAILY 11/23/22 11/29/22 Metoprolol Succinate [Toprol Xl] 50 mg PO DAILY #30 tab 11/23/22 Potassium Chloride 3 cap PO DAILY 11/23/22 11/29/22 Sertraline [Zoloft] 50 mg PO DAILY #60 tab 11/23/22 11/29/22 oxyCODONE [Roxicodone] 5 - 10 mg PO Q4HR PRN #10 tab 11/23/22 11/29/22 HYDROmorphone [Dilaudid] 2 mg PO Q6H PRN #20 tablet 11/29/22 Magnesium Oxide [Mag Ox] 400 mg PO DAILY #30 tablet 11/29/22 Calcium Carbonate [Tums (Calcium 500 mg PO BID #20 tablet 03/02/23 Carbonate 500mg)] Magnesium Oxide [Mag Ox] 400 mg PO BIDWM #20 tablet 03/02/23 Potassium Chloride [K-Dur] 20 meq PO BIDWM #10 tablet 03/02/23 - Allergies Allergies/Adverse Reactions: Allergies Allergy/AdvReac Type Severity Reaction Status Date / Time No Known Drug Allergies Allergy Verified 03/02/23 16:06 - Social History Does the pt smoke?: Yes Smoking Status: Current every day smoker Does the pt drink ETOH?: Yes Does the pt have substance abuse?: Yes - Immunizations Immunizations are current?: Yes - POLST Patient has POLST: No PD ED PE NORMAL - Vitals Vital signs reviewed: Yes - General General: No acute distress, Well developed/nourished, Other (The patient smelled strongly of alcohol. He is drowsy but easily arousable either by voice or by brief sternal rub.) - HEENT HEENT: Atraumatic, EOMI, Moist mucous membranes - Neck Neck: Supple, no meningeal sign - Cardiac Cardiac: RRR, No murmur - Respiratory Respiratory: No respiratory distress, Clear bilaterally - Abdomen Abdomen: Soft, Other (Diffuse right abdominal tenderness. Moderate distention, but abdomen overall is soft.) - Derm Derm: Warm and dry, Other (Pale, sallow, but no obvious jaundice.) - Extremities Extremities: No deformity, No edema - Neuro Neuro: Other (Drowsy, appears clinically intoxicated, but is appropriate when aroused. No focal deficits.) - Psych Psych: Normal mood, Normal affect Results - Vitals Vitals: Oxygen O2 Source Room air PD Medical Decision Making - ED course Complexity details: reviewed old records, considered differential, d/w patient ED course: The patient was evaluated upon arrival in the emergency department and I did review his records from yesterday. The patient had not completed his treatment here yesterday but had decided to elope. The patient denied drinking alcohol though I suspected he had been drinking. I have ordered labs including CBC, ER abdominal panel, ammonia level, and alcohol level, as well as magnesium. The p atient has arrived just before change of shift and as such, will be signed out to Dr. Reese at change of shift, pending results of the work-up, as well as final disposition.
[2023-03-03] MEDS ORDERED: ONDANSETRON 4 MG/2 ML VIAL IVP STA (06:46)
[2023-03-03] MEDS ORDERED: SODIUM CHLORIDE 0.9% 1,000 ML IV STA (06:46)
[2023-03-03 06:53] LABS: BASOPHILS # (AUTO) 0.1 10^3/uL (0.0-0.1); BASOPHILS % (AUTO) 0.7 %; EOSINOPHILS # (AUTO) 0.1 10^3/uL (0.0-0.7); EOSINOPHILS % (AUTO) 0.5 %; HCT - HEMATOCRIT 38.4 % (42.0-52.0); HGB - HEMOGLOBIN 12.8 g/dL (14.0-18.0); LYMPHOCYTES % (AUTO) 37.5 %; MEAN CORPUSCULAR HEMOGLOBIN 27.5 pg (27.0-31.0); MEAN CORPUSCULAR HGB CONC 33.3 g/dL (32.0-36.0); MEAN CORPUSCULAR VOLUME 82.4 fL (80.0-94.0); MEAN PLATELET VOLUME 9.4 fL (7.4-11.4); MONOCYTES # (AUTO) 1.2 10^3/uL (0.0-1.0); MONOCYTES % (AUTO) 8.8 %; NEUTROPHILS # (AUTO) 6.9 10^3/uL (1.5-6.6); NEUTROPHILS % (AUTO) 52.2 %; PLT - PLATELET COUNT 233 10^3/uL (130-450); RED BLOOD COUNT 4.66 10^6/uL (4.70-6.10); RED CELL DISTRIBUTION WIDTH 22.3 % (12.0-15.0); WHITE BLOOD COUNT 13.2 x10^3/uL (4.8-10.8)
[2023-03-03 06:56] LABS: SLIDE REVIEW? Indicated
[2023-03-03 07:04] LABS: ALBUMIN 3.6 g/dL (3.2-5.5); ETOH - ETHANOL 384.3 mg/dL
[2023-03-03 07:07] LABS: BILIRUBIN,TOTAL 1.7 mg/dL (0.2-1.0); CALCIUM 8.3 mg/dL (8.5-10.3); CREATININE 0.4 mg/dL (0.6-1.3); TOTAL PROTEIN 7.2 g/dL (6.4-8.9)
[2023-03-03] MEDS ORDERED: POTASSIUM CHLOR 10 MEQ/100 ML 10 MEQ/100 ML BAG IV ONE (07:41)
[2023-03-03] MEDS ORDERED: POTASSIUM CHLORIDE 20 MEQ TABLET PO STA (07:41)
[2023-03-03] MEDS ORDERED: CALCIUM GLUC 1,000MG/50ML-NACL 1,000 MG/50 ML BAG IV STA (07:42)
[2023-03-03] MEDS ORDERED: MAGNESIUM SULFATE 2 GRAM 2 GM/50 ML BAG IV ONE (07:43)
[2023-03-03 07:56] LABS: PLATELET ESTIMATE, MANUAL NORMAL (130-450,000) (NORMAL); PLATELET MORPHOLOGY NORMAL APPEARANCE (NORMAL)
[2023-03-03 07:57] LABS: WBC MORPHOLOGY (MULTIPLE) NORMAL APPEARANCE (NORMAL)
[2023-03-03] MEDS ORDERED: THIAMINE INJ 100 MG in SODIUM CHLORIDE 0.9% 50 ML IV STA (08:03)
[2023-03-03] MEDS ORDERED: HYDROmorphone 1 MG/ML CARPUJECT IVP STA (08:04)
--- NOTE | 2023-03-03 08:07 | ED Physician Documentation ---
ED Addendum - Addendum Addendum: 03/03/23 08:04 At shift change Hemanth Hurt is left in my care after he is presented to the emergency department by ambulance for shortness of breath. The patient admits to abdominal pain that is persistent and worsening over the past month, abdominal distention is present with ascites. The patient has been receiving his paracentesis as an outpatient through the radiology department and he has had paracentesis done in the emergency department as well. He indicates he is not getting relief of his pain and has started drinking to counter the pain. He has an appointment for paracentesis this morning at 815. We checked with the radiology department and his appointment is actually for tomorrow. The patient believes it will be difficult for him to get to the hospital tomorrow to get paracentesis done as he does not have a ride. I asked the patient a number of times if he would allow us to have the director social service evaluate him for treatment and he indicates that he is not interested in treatment he has been asked this multiple times and he does not believe this is something that we will help him. I argued with the patient about this.When I told the patient that his potassium was 3 he was elated with this because he has had a prior admission to the hospital with a potassium of 1.9 that required 12 days of replacement. He was thinking he may need to be hospitalized today and he was excited to know that he did not need to be hospitalized. He is refusing further services. 03/03/23 18:24
[2023-03-03 08:38] LABS: INR 1.5 (0.8-1.2); PT - PROTHROMBIN TIME 16.3 secs (9.9-12.6)
[2023-03-03 11:43] VITALS: BP 103/73; O2SAT 95
== END 2023-03-03 12:56 | disposition home or self-care (01) ==
LOC: EDUNIT# → ED 06:33
DX: R06.02 Shortness of breath (principal); R11.0 Nausea; R10.9 Unspecified abdominal pain; R14.0 Abdominal distension (gaseous); R18.8 Other ascites; F17.200 Nicotine dependence, unspecified, uncomplicated
CPT/HCPCS: 36415; 80053; 80320; 82140; 83690; 83735; 85025; 85610; 96365; 96366; 96368; 96375; 99284; 99285; A9270; J1170; J3411; J7040

== ENCOUNTER 2023-03-15 16:23 | Outpatient (CLI) | payer MEDICAID | END 2023-03-15 16:24 | disposition EMS.NT | LOC: EMS 16:23 | DX: R10.9 Unspecified abdominal pain (principal) ==

== ENCOUNTER 2023-03-20 08:12 | Emergency (ER) | payer MEDICAID ==
[2023-03-20 08:29] VITALS: BP 121/98; O2SAT 96
--- NOTE | 2023-03-20 11:12 | ED Physician Documentation ---
PD HPI ABD PAIN - Stated complaint Stated Complaint: ABD PX - Chief complaint Chief Complaint: Abd Pain - History obtained from History obtained from: Patient - Additional information Additional information: 32-year-old gentleman with alcoholic cirrhosis missed his appointment for paracentesis 2 days ago and now presents to the emergency department requesting same feeling tight abdomen related to same. No vomiting or fevers. PD PAST MEDICAL HISTORY - Past Medical History Past Medical History: Yes Cardiovascular: None Respiratory: None Neuro: None Endocrine/Autoimmune: None GI: GERD, Esophageal varices, GI bleed, Pancreatitis, Cirrhosis : None HEENT: None Psych: Depression Musculoskeletal: None Derm: None - Past Surgical History Past Surgical History: No General: EGD - Present Medications Home Medications: Ambulatory Orders Medication Instructions Recorded Confirmed Omeprazole Magnesium 20 mg PO QDAC 07/02/22 11/29/22 Multivitamin [Theragran] 1 tab PO DAILY 10/23/22 11/23/22 Furosemide [Lasix] 20 mg PO DAILY #30 tablet 11/01/22 11/23/22 Lactulose 15 ml PO DAILY PRN #30 ea 11/01/22 11/23/22 Thiamine [Vitamin B-1] 100 mg PO DAILY tab 11/01/22 11/23/22 Calcium Carbonate [Tums (Calcium 500 mg PO BID tab 11/13/22 11/23/22 Carbonate 500mg)] Spironolactone [Aldactone] 100 mg PO DAILY #120 tab 11/13/22 11/23/22 oxyCODONE [Roxicodone] 5 mg PO Q4HR PRN #30 tab 11/13/22 11/23/22 HYDROmorphone [Dilaudid] 2 mg PO Q6H PRN #10 tablet 11/23/22 Ibuprofen [Ibu-200] 3 tab PO DAILY PRN 11/23/22 11/23/22 Magnesium Oxide 1 tab PO DAILY 11/23/22 11/29/22 Metoprolol Succinate [Toprol Xl] 50 mg PO DAILY #30 tab 11/23/22 Potassium Chloride 3 cap PO DAILY 11/23/22 11/29/22 Sertraline [Zoloft] 50 mg PO DAILY #60 tab 11/23/22 11/29/22 oxyCODONE [Roxicodone] 5 - 10 mg PO Q4HR PRN #10 tab 11/23/22 11/29/22 HYDROmorphone [Dilaudid] 2 mg PO Q6H PRN #20 tablet 11/29/22 Magnesium Oxide [Mag Ox] 400 mg PO DAILY #30 tablet 11/29/22 Calcium Carbonate [Tums (Calcium 500 mg PO BID #20 tablet 03/02/23 Carbonate 500mg)] Magnesium Oxide [Mag Ox] 400 mg PO BIDWM #20 tablet 03/02/23 Potassium Chloride [K-Dur] 20 meq PO BIDWM #10 tablet 03/02/23 Potassium Bicarbonate 25 meq PO BID #20 tablet 03/03/23 [K-Effervescent] - Allergies Allergies/Adverse Reactions: Allergies Allergy/AdvReac Type Severity Reaction Status Date / Time No Known Drug Allergies Allergy Verified 03/20/23 08:27 - Social History Does the pt smoke?: Yes Smoking Status: Current every day smoker Does the pt drink ETOH?: Yes Does the pt have substance abuse?: Yes - Immunizations Immunizations are current?: Yes - POLST Patient has POLST: No PD ED PE NORMAL - Vitals Vital signs reviewed: Yes - General General: Alert and oriented X 3, Other (He appears in no distress including respiratory) - Abdomen Abdomen: Non tender, Other (While he has ascites it is not tense or tender.) - Neuro Neuro: Alert and oriented X 3, Normal speech Results - Vitals Vitals: Vital Signs - 24 hr 03/20/23 08:25 Temperature 36.0 C L Heart Rate 112 H Respiratory 20 Rate Blood Pressure 121/98 H O2 Saturation 96 Oxygen O2 Source Room air PD Medical Decision Making - ED course ED course: He missed his outpatient appointment for paracentesis and presents to the emergency department requesting same. There is no emergency medical condition and he is discharged advising him that he should not miss his appointments and he can reschedule as an outpatient. Departure - Departure Disposition: 01 Home, Self Care Clinical Impression: Ascites due to alcoholic cirrhosis Condition: Good Record reviewed to determine appropriate education?: Yes Comments: You missed your appointment for paracentesis 2 days ago, and there is no emergency medical condition present. Please reschedule your outpatient paracentesis. Return for new or worsening symptoms. Forms: PCP List
== END 2023-03-20 11:17 | disposition home or self-care (01) ==
LOC: ED 08:12
DX: K70.31 Alcoholic cirrhosis of liver with ascites (principal); F17.200 Nicotine dependence, unspecified, uncomplicated
CPT/HCPCS: 99281; 99282

== ENCOUNTER 2023-04-01 08:56 | Outpatient (CLI) | payer MEDICAID ==
--- NOTE | 2023-04-01 13:35 | Ultrasound Report ---
PROCEDURE: Abdominal Paracentesis INDICATIONS: ASCITES TECHNIQUE: The indications, alternatives, benefits, risks, and complications of the procedure were explained to the patient. Written informed consent was obtained and placed in the chart. The abdomen and pelvis were examined sonographically, and an appropriate site was chosen for paracentesis. The skin was pre pared and draped in the usual sterile fashion, and 1% lidocaine was infiltrated from the skin down th rough the peritoneal surface. A 19-gauge catheter-covered needle was then introduced into the perito rafael space, the catheter was advanced and the needle was withdrawn, and thereafter peritoneal fluid w as withdrawn. The catheter was then removed and a dressing was applied. The fluid was discarded if the clinician did not order diagnostic testing of the fluid. COMPARISON: 01/28/2023 FINDINGS: Access site: Left lower quadrant Needle: One-Step centesis catheter with introducer needle. Fluid volume and description: Clear, 6 L Albumin was administered. Fluid sent for diagnostic testing: No Medications: 1% lidocaine for local anaesthesia. Complications: None. IMPRESSION: Successful ultrasound-guided paracentesis. Reviewed by: Sánchez Wetzel MD on 04/01/2023 1:33 PM PST Approved by: Sánchez Wetzel MD on 04/01/2023 1:33 PM PST Station ID: [id number]
== END 2023-04-01 08:57 | disposition home or self-care (01) ==
LOC: DI 08:56
PROVIDERS: ATTEND Nurse Practitioner Acute Care
DX: K70.31 Alcoholic cirrhosis of liver with ascites (principal)
CPT/HCPCS: 49083

== ENCOUNTER 2023-04-30 17:05 | Outpatient (CLI) | payer MEDICAID | END 2023-04-30 17:06 | disposition EMS.NT | LOC: EMS 17:05 | DX: F10.10 Alcohol abuse, uncomplicated (principal) ==

== ENCOUNTER 2023-05-02 11:47 | Outpatient (CLI) | payer MEDICAID | END 2023-05-02 11:48 | disposition critical access hospital (66) | LOC: EMS 11:47 | DX: R10.811 Right upper quadrant abdominal tenderness (principal); R10.813 Right lower quadrant abdominal tenderness; R19.01 Right upper quadrant abdominal swelling, mass and lump; R19.03 Right lower quadrant abdominal swelling, mass and lump; R25.2 Cramp and spasm; R06.82 Tachypnea, not elsewhere classified; R10.11 Right upper quadrant pain; R10.31 Right lower quadrant pain; R11.2 Nausea with vomiting, unspecified | CPT/HCPCS: A0425; A0427; A0999 ==

== ENCOUNTER 2023-05-02 12:15 | Emergency (ER) | payer MEDICAID ==
[2023-05-02] MEDS ORDERED: FAMOTIDINE 20 MG/2 ML VIAL IVP STA (12:58)
[2023-05-02] MEDS ORDERED: LORazepam 2 MG/ML VIAL IVP STA ×2 (13:01→17:47)
--- NOTE | 2023-05-02 13:08 | ED Physician Documentation ---
PD HPI ABD PAIN - Stated complaint Stated Complaint: ETOH WD - Chief complaint Chief Complaint: Abd Pain - Additional information Additional information: 32-year-old male with history of alcohol dependence presents to the emergency department via EMS today for alcohol withdrawal symptoms. Patient said that he has been drinking 2 fifths of vodka a day over the last month and due to at home stressors per patient. He quit drinking cold turkey yesterday when I ask him what time he quit drinking he states he does not remember. Today he has been having ongoing nausea vomiting abdominal pain.He does report a history of alcohol withdrawal seizures denies any recent call withdrawal seizures with current withdrawal PD PAST MEDICAL HISTORY - Past Medical History Past Medical History: Yes Cardiovascular: None Respiratory: None Neuro: None Endocrine/Autoimmune: None GI: GERD, Esophageal varices, GI bleed, Pancreatitis, Cirrhosis : None HEENT: None Psych: Depression Musculoskeletal: None Derm: None - Past Surgical History Past Surgical History: No General: EGD - Present Medications Home Medications: Ambulatory Orders Medication Instructions Recorded Confirmed Omeprazole Magnesium 20 mg PO QDAC 07/02/22 11/29/22 Multivitamin [Theragran] 1 tab PO DAILY 10/23/22 11/23/22 Furosemide [Lasix] 20 mg PO DAILY #30 tablet 11/01/22 11/23/22 Lactulose 15 ml PO DAILY PRN #30 ea 11/01/22 11/23/22 Thiamine [Vitamin B-1] 100 mg PO DAILY tab 11/01/22 11/23/22 Calcium Carbonate [Tums (Calcium 500 mg PO BID tab 11/13/22 11/23/22 Carbonate 500mg)] Spironolactone [Aldactone] 100 mg PO DAILY #120 tab 11/13/22 11/23/22 oxyCODONE [Roxicodone] 5 mg PO Q4HR PRN #30 tab 11/13/22 11/23/22 HYDROmorphone [Dilaudid] 2 mg PO Q6H PRN #10 tablet 11/23/22 Ibuprofen [Ibu-200] 3 tab PO DAILY PRN 11/23/22 11/23/22 Magnesium Oxide 1 tab PO DAILY 11/23/22 11/29/22 Metoprolol Succinate [Toprol Xl] 50 mg PO DAILY #30 tab 11/23/22 Potassium Chloride 3 cap PO DAILY 11/23/22 11/29/22 Sertraline [Zoloft] 50 mg PO DAILY #60 tab 11/23/22 11/29/22 oxyCODONE [Roxicodone] 5 - 10 mg PO Q4HR PRN #10 tab 11/23/22 11/29/22 HYDROmorphone [Dilaudid] 2 mg PO Q6H PRN #20 tablet 11/29/22 Magnesium Oxide [Mag Ox] 400 mg PO DAILY #30 tablet 11/29/22 Calcium Carbonate [Tums (Calcium 500 mg PO BID #20 tablet 03/02/23 Carbonate 500mg)] Magnesium Oxide [Mag Ox] 400 mg PO BIDWM #20 tablet 03/02/23 Potassium Chloride [K-Dur] 20 meq PO BIDWM #10 tablet 03/02/23 Potassium Bicarbonate 25 meq PO BID #20 tablet 03/03/23 [K-Effervescent] chlordiazePOXIDE [Librium] 10 mg PO Q6H PRN #10 cap 05/02/23 - Allergies Allergies/Adverse Reactions: Allergies Allergy/AdvReac Type Severity Reaction Status Date / Time No Known Drug Allergies Allergy Verified 05/02/23 12:45 - Social History Does the pt smoke?: Yes Smoking Status: Current every day smoker Does the pt drink ETOH?: Yes Does the pt have substance abuse?: Yes - Immunizations Immunizations are current?: Yes - POLST Patient has POLST: No PD ED PE NORMAL - Vitals Vital signs reviewed: Yes - General General: Alert and oriented X 3, No acute distress, Well developed/nourished - HEENT HEENT: Atraumatic, EOMI, Moist mucous membranes - Cardiac Cardiac: RRR, No murmur, No gallop - Respiratory Respiratory: No respiratory distress, Clear bilaterally - Abdomen Abdomen: Normal bowel sounds, Soft, Non distended - Derm Derm: Normal color, Warm and dry - Extremities Extremities: No deformity, No edema - Neuro Neuro: Alert and oriented X 3, 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, No motor deficit, No sensory deficit, Normal speech Eye Opening: Spontaneous Motor: Obeys Commands Verbal: Oriented GCS Score: 15 Results - Vitals Vitals: Vital Signs - 24 hr 05/02/23 05/02/23 05/02/23 12:45 13:51 17:36 Temperature 36.8 C 36.8 C Heart Rate 110 H 114 H 94 Respiratory 16 18 18 Rate Blood Pressure 133/85 H 125/85 H 126/82 H O2 Saturation 99 98 94 05/02/23 05/02/23 19:00 19:43 Temperature 36.8 C 36.8 C Heart Rate 88 88 Respiratory 16 16 Rate Blood Pressure 124/82 H 124/82 H O2 Saturation 96 96 Oxygen O2 Source Room air - Labs Labs: Laboratory Tests 05/02/23 05/02/23 05/02/23 13:27 13:27 17:59 WBC 10.0 RBC 4.33 L Hgb 12.6 L Hct 37.3 L MCV 86.1 MCH 29.1 MCHC 33.8 RDW 17.6 H Plt Count 110 L MPV 9.7 Neut # (Auto) Not Reportable Lymph # (Auto) Not Reportable Dillon # (Auto) Not Reportable Eos # (Auto) Not Reportable Baso # (Auto) Not Reportable Absolute Nucleated RBC Not Reportable Total Counted 100 Band Neuts % (Manual) 1 Abnorm Lymph % (Manual) 0 Nucleated RBC % Not Reportable Neutrophils # (Manual) 8.3 H Lymphocytes # (Manual) 1.0 L Monocytes # (Manual) 0.7 Eosinophils # (Manual) 0.0 Basophils # (Manual) 0.0 Differential Comment MANUAL DIFFERENTIAL Platelet Estimate DECREASED (<130,000) Platelet Morphology NORMAL APPEARANCE RBC Morph Micro Appear NORMAL APPEARANCE Sodium 134 L Potassium 2.6 L 2.8 L Chloride 85 L Carbon Dioxide 28 Anion Gap 21.0 H BUN 11 Creatinine 0.8 Estimated GFR (MDRD) 113 Glucose 117 H Calcium 10.1 Magnesium 0.7 L* 1.3 L Total Bilirubin 3.1 H AST 86 H ALT 49 Alkaline Phosphatase 242 H Total Protein 8.2 Albumin 4.4 Globulin 3.8 Albumin/Globulin Ratio 1.2 Lipase 62 Ethyl Alcohol < 10.0 05/02/23 17:59 WBC RBC Hgb Hct MCV MCH MCHC RDW Plt Count MPV Neut # (Auto) Lymph # (Auto) Dillon # (Auto) Eos # (Auto) Baso # (Auto) Absolute Nucleated RBC Total Counted Band Neuts % (Manual) Abnorm Lymph % (Manual) Nucleated RBC % Neutrophils # (Manual) Lymphocytes # (Manual) Monocytes # (Manual) Eosinophils # (Manual) Basophils # (Manual) Differential Comment Platelet Estimate Platelet Morphology RBC Morph Micro Appear Sodium 132 L Potassium 2.8 L Chloride 90 L Carbon Dioxide 31 Anion Gap 11.0 BUN 10 Creatinine 0.7 Estimated GFR (MDRD) 132 Glucose 108 H Calcium 9.2 Magnesium Total Bilirubin AST ALT Alkaline Phosphatase Total Protein Albumin Globulin Albumin/Globulin Ratio Lipase Ethyl Alcohol PD Medical Decision Making - ED course ED course: 32-year-old male here for alcohol withdrawal. CBC reveals anemia, hemoglobin 12.6, hematocrit 37.3 patient does not have any active signs of bleeding, potassium found to be critically low at 2.6 40 mEq p.o. given recheck of potassium was found to be only 2.8. Additional 25 mEq sodium bicarb given prior to discharge Magnesium also found to be critically low at 0.72, 2g IV magnesium administered and Increased to 1.3. Additional 400 mg p.o. magnesium oxide administered prior to discharge. Patient did have an anion gap of 21 after receiving 2 L of IV fluid this closed at 11.0 Alk phos is also found to be elevated at 242 most likely related to his alcohol dependence. Alcohol withdrawal symptoms were controlled with IV Ativan, abdominal pain fully resolved after IV Dilaudid most like related to alcohol withdrawal symptoms. Abdomen soft, he was nonguarding. Alcohol level less than 10.0. Patient reports that he does want to get into rehab unfortunately social work nurse is no longer here at this time. Patient was given multiple resources and phone numbers that he was told to call and follow- up with to Attempt again in outpatient rehab patient said that he would work on this. Patient given strict return precautions as well as a prescription of Librium to help with his withdrawal symptoms and he is told to follow-up with his primary care provider. Departure - Departure Disposition: 01 Home, Self Care Clinical Impression: Hypomagnesemia, Hypokalemia Alcohol withdrawal Qualifiers: Complication of substance-induced condition: with unspecified complication Qualified Code(s): F10.939 - Alcohol use, unspecified with withdrawal, unspecified Condition: Good Instructions: ED Withdrawal Alcohol, ED Potassium Deficiency Prescriptions: chlordiazePOXIDE [Librium] 10 mg PO Q6H PRN #10 cap PRN Reason: Alcohol Withdrawal Comments: Thank you for trusting us with your care we have given you medication here in the emergency department to help with your alcohol withdrawal symptoms and you seem to be doing much better. We are going to send a prescription to [facility] pharmacy to help with your ongoing alcohol withdrawal symptoms that he can pickle maker tomorrow if needed. Your potassium and magnesium were found to be quite low make sure that going home you are eating things that are high in potassium magnesium like a banana and thinks with electrolytes like Gatorade or coconut water. Please come back to the emergency department if you are having ongoing difficulty managing her alcohol withdrawal symptoms at home, seizure- like activity, new confusion, worsening abdominal pain, or any other concerning symptoms. I strongly encourage you to call around rehab facilities to try to get in to rehab for alcohol withdrawal. Forms: PCP List Discharge Date/Time: 05/02/23 19:43
[2023-05-02 13:35] LABS: BASOPHILS % (AUTO) 0.2 %; EOSINOPHILS % (AUTO) 1.2 %; HCT - HEMATOCRIT 37.3 % (42.0-52.0); HGB - HEMOGLOBIN 12.6 g/dL (14.0-18.0); LYMPHOCYTES % (AUTO) 5.8 %; MEAN CORPUSCULAR HEMOGLOBIN 29.1 pg (27.0-31.0); MEAN CORPUSCULAR HGB CONC 33.8 g/dL (32.0-36.0); MEAN CORPUSCULAR VOLUME 86.1 fL (80.0-94.0); MEAN PLATELET VOLUME 9.7 fL (7.4-11.4); MONOCYTES % (AUTO) 8.7 %; NEUTROPHILS % (AUTO) 83.8 %; PLT - PLATELET COUNT 110 10^3/uL (130-450); RED BLOOD COUNT 4.33 10^6/uL (4.70-6.10); RED CELL DISTRIBUTION WIDTH 17.6 % (12.0-15.0)
[2023-05-02 13:37] LABS: ABNORMAL LYMPHS % (MANUAL) 0 %
[2023-05-02 13:48] LABS: ALBUMIN 4.4 g/dL (3.2-5.5); ETOH - ETHANOL < 10.0 mg/dL; LIPASE 62 U/L (11-82)
[2023-05-02 13:52] LABS: ALBUMIN/GLOBULIN RATIO 1.2 (1.0-2.2); ALKALINE PHOSPHATASE 242 IU/L (42-121); ALT ALANINE AMINOTRANSFERASE 49 IU/L (10-60); AST ASPARTATE AMINOTRANSFERASE 86 IU/L (10-42); BILIRUBIN,TOTAL 3.1 mg/dL (0.2-1.0); BUN - BLOOD UREA NITROGEN 11 mg/dL (6-20); CALCIUM 10.1 mg/dL (8.5-10.3); CARBON DIOXIDE - CO2 28 mmol/L (21-32); CHLORIDE 85 mmol/L (101-111); CREATININE 0.8 mg/dL (0.6-1.3); GFR - MDRD 113 (>89); GLUCOSE 117 mg/dL (74-104); MAGNESIUM 0.7 mg/dL (1.7-2.3); POTASSIUM 2.6 mmol/L (3.5-4.5); SODIUM 134 mmol/L (135-145); TOTAL PROTEIN 8.2 g/dL (6.4-8.9)
[2023-05-02 13:56] LABS: BAND NEUTROPHILS % (MANUAL) 1 %; DIFFERENTIAL COMMENT MANUAL DIFFERENTIAL; LYMPHOCYTES % (MANUAL) 10 %; MONOCYTES # (MANUAL) 0.7 10^3/uL (0.0-1.0); NEUTROPHILS # (MANUAL) 8.3 10^3/uL (1.5-6.6); PLATELET ESTIMATE, MANUAL DECREASED (<130,000) (NORMAL); PLATELET MORPHOLOGY NORMAL APPEARANCE (NORMAL); RBC MORPHOLOGY (MULTIPLE) NORMAL APPEARANCE (NORMAL)
[2023-05-02] MEDS ORDERED: MAGNESIUM SULFATE 1 GM/2 ML VIAL IVP STA (13:57)
[2023-05-02] MEDS ORDERED: POTASSIUM CHLORIDE 20 MEQ TABLET PO STA (13:58)
[2023-05-02] MEDS ORDERED: ONDANSETRON 4 MG/2 ML VIAL IVP STA (14:23)
[2023-05-02] MEDS ORDERED: HYDROmorphone 0.5 MG/0.5 ML SYRINGE IVP STA (14:41)
[2023-05-02] MEDS ORDERED: SODIUM CHLORIDE 0.9% 1,000 ML IV ONE (17:34)
[2023-05-02 18:23] LABS: MAGNESIUM 1.3 mg/dL (1.7-2.3); POTASSIUM 2.8 mmol/L (3.5-4.5)
[2023-05-02 19:13] LABS: CALCIUM 9.2 mg/dL (8.5-10.3); CREATININE 0.7 mg/dL (0.6-1.3); POTASSIUM 2.8 mmol/L (3.5-4.5)
[2023-05-02] MEDS ORDERED: MAGNESIUM OXIDE 400 MG TABLET PO STA (19:32)
[2023-05-02] MEDS ORDERED: POTASSIUM BICARB 25 MEQ TABLET PO STA (19:33)
[2023-05-02 19:49] VITALS: BP 124/82; O2SAT 96
== END 2023-05-02 19:43 | disposition home or self-care (01) ==
LOC: EDUNIT# → ED 12:15
DX: F10.939 Alcohol use, unspecified with withdrawal, unspecified (principal); E87.6 Hypokalemia; E83.42 Hypomagnesemia; R74.8 Abnormal levels of other serum enzymes; Y90.0 Blood alcohol level of less than 20 mg/100 ml; F17.200 Nicotine dependence, unspecified, uncomplicated
CPT/HCPCS: 36415; 80048; 80053; 80320; 83690; 83735; 84132; 85025; 96361; 96374; 96375; 99284; 99285; A9270; J1170; J2060

== ENCOUNTER 2023-05-06 08:13 | Outpatient (CLI) | payer MEDICAID ==
--- NOTE | 2023-05-06 09:40 | Ultrasound Report ---
PROCEDURE: Abdomen Limited INDICATIONS: ALCOHOLIC CIRRHOSIS OF LIVER WITH ASCITES TECHNIQUE: Real-time focused scanning was performed of the abdomen, with image documentation. Color and spectral Doppler evaluation of the liver vasculature was performed. COMPARISONS: None. FINDINGS: Liver: Cirrhosis without solid mass. Patent liver vasculature, with appropriate direction of flow. Gallbladder: Contracted. Biliary ducts: Intrahepatic bile ducts are non-dilated. Extrahepatic bile duct caliber measures 6 m m. Normal is 6-7 mm or less in diameter, or 10 mm or less post-cholecystectomy. Pancreas: Visualized portions of the pancreas are sonographically normal. Right kidney: Normal in size and echotexture. Right kidney measures 12.3 cm long. No hydronephrosis or nephrolithiasis. No solid masses. No complex renal cystic lesions which require follow-up. Miscellaneous: Trace free fluid in the right upper quadrant. IMPRESSION: Cirrhosis without solid mass. Patent liver vasculature. Reviewed by: Walt Ruvalcaba MD on 05/06/2023 9:38 AM [facility] Approved by: Walt Ruvalcaba MD on 05/06/2023 9:38 AM [facility] Station ID: [id number]
--- NOTE | 2023-05-06 10:12 | Ultrasound Report ---
PROCEDURE: Doppler Limited INDICATIONS: ALCOHOLIC CIRRHOSIS OF LIVER TECHNIQUE: Limited Doppler examination of liver was performed with image documentation. COMPARISON: None. FINDINGS: The hepatic veins and portal veins are all patent and show normal direction of flow. Resistive index in main hepatic artery is 0.65. Resistive index in splenic artery is 0.63. IMPRESSION: Normal Doppler examination of hepatic vasculatures as above. Reviewed by: Noel Viveros MD on 05/06/2023 10:11 AM [facility] Approved by: Noel Viveros MD on 05/06/2023 10:11 AM [facility] Station ID: [id number]
== END 2023-05-06 08:14 | disposition home or self-care (01) ==
LOC: DI 08:13
PROVIDERS: ATTEND Nurse Practitioner Acute Care
DX: K70.31 Alcoholic cirrhosis of liver with ascites (principal); R18.8 Other ascites
CPT/HCPCS: 93976

== ENCOUNTER 2023-05-12 16:00 | Emergency (ER) | payer MEDICAID ==
[2023-05-12 17:17] LABS: BASOPHILS # (AUTO) 0.1 10^3/uL (0.0-0.1); BASOPHILS % (AUTO) 1.2 %; EOSINOPHILS # (AUTO) 0.1 10^3/uL (0.0-0.7); EOSINOPHILS % (AUTO) 0.6 %; HGB - HEMOGLOBIN 12.5 g/dL (14.0-18.0); LYMPHOCYTES # (AUTO) 3.5 10^3/uL (1.5-3.5); MEAN CORPUSCULAR HEMOGLOBIN 29.1 pg (27.0-31.0); MEAN CORPUSCULAR HGB CONC 32.9 g/dL (32.0-36.0); MEAN CORPUSCULAR VOLUME 88.6 fL (80.0-94.0); MEAN PLATELET VOLUME 9.7 fL (7.4-11.4); MONOCYTES % (AUTO) 12.7 %; NEUTROPHILS # (AUTO) 3.4 10^3/uL (1.5-6.6); NEUTROPHILS % (AUTO) 42.3 %; PLT - PLATELET COUNT 198 10^3/uL (130-450); RED BLOOD COUNT 4.29 10^6/uL (4.70-6.10); RED CELL DISTRIBUTION WIDTH 17.5 % (12.0-15.0)
[2023-05-12 17:37] LABS: ACETAMINOPHEN 0.1 ug/mL; ALBUMIN 4.3 g/dL (3.2-5.5); ALBUMIN/GLOBULIN RATIO 1.1 (1.0-2.2); ALKALINE PHOSPHATASE 223 IU/L (42-121); ALT ALANINE AMINOTRANSFERASE 69 IU/L (10-60); AST ASPARTATE AMINOTRANSFERASE 96 IU/L (10-42); BILIRUBIN,TOTAL 1.1 mg/dL (0.2-1.0); BUN - BLOOD UREA NITROGEN 3 mg/dL (6-20); CALCIUM 8.6 mg/dL (8.5-10.3); CARBON DIOXIDE - CO2 26 mmol/L (21-32); CHLORIDE 105 mmol/L (101-111); CREATININE 0.5 mg/dL (0.6-1.3); ETOH - ETHANOL 482.6 mg/dL; GFR - MDRD 194 (>89); GLUCOSE 98 mg/dL (74-104); LIPASE 32 U/L (11-82); POTASSIUM 3.1 mmol/L (3.5-4.5); SODIUM 142 mmol/L (135-145); TOTAL PROTEIN 8.1 g/dL (6.4-8.9)
[2023-05-12 17:38] LABS: SALICYLATE < 1.5 mg/dL
[2023-05-12 17:45] LABS: THYROID STIMULATING HORMONE 0.32 uIU/mL (0.34-5.60)
--- NOTE | 2023-05-12 20:46 | ED Physician Documentation ---
History of Present Illness - Stated complaint Stated Complaint: DETOX - Chief complaint Chief Complaint: General - History obtained from History obtained from: Patient - Additonal information Additional information: HPI from patient. Patient says he is here for "clearance so that I can get into the detox place" (per patient). Patient is an alcoholic; patient tells me he drinks 1/5 of vodka per day. His last drink was sometime tonight. Patient says he contacted [facility] and was told to come to the emergency department for this "clearance". Review of Systems Cardiac: reports: Reviewed and negative Respiratory: reports: Reviewed and negative GI: reports: Abdominal Pain (right-sided/RLQ (chronic, patient says at least one year) PD PAST MEDICAL HISTORY - Past Medical History Past Medical History: Yes Cardiovascular: None Respiratory: None Neuro: None Endocrine/Autoimmune: None GI: GERD, Esophageal varices, GI bleed, Pancreatitis, Cirrhosis : None HEENT: None Psych: Depression Musculoskeletal: None Derm: None - Past Surgical History Past Surgical History: No General: EGD - Present Medications Home Medications: Ambulatory Orders Medication Instructions Recorded Confirmed Omeprazole Magnesium 20 mg PO QDAC 07/02/22 11/29/22 Multivitamin [Theragran] 1 tab PO DAILY 10/23/22 11/23/22 Furosemide [Lasix] 20 mg PO DAILY #30 tablet 11/01/22 11/23/22 Lactulose 15 ml PO DAILY PRN #30 ea 11/01/22 11/23/22 Thiamine [Vitamin B-1] 100 mg PO DAILY tab 11/01/22 11/23/22 Calcium Carbonate [Tums (Calcium 500 mg PO BID tab 11/13/22 11/23/22 Carbonate 500mg)] Spironolactone [Aldactone] 100 mg PO DAILY #120 tab 11/13/22 11/23/22 oxyCODONE [Roxicodone] 5 mg PO Q4HR PRN #30 tab 11/13/22 11/23/22 HYDROmorphone [Dilaudid] 2 mg PO Q6H PRN #10 tablet 11/23/22 Ibuprofen [Ibu-200] 3 tab PO DAILY PRN 11/23/22 11/23/22 Magnesium Oxide 1 tab PO DAILY 11/23/22 11/29/22 Metoprolol Succinate [Toprol Xl] 50 mg PO DAILY #30 tab 11/23/22 Potassium Chloride 3 cap PO DAILY 11/23/22 11/29/22 Sertraline [Zoloft] 50 mg PO DAILY #60 tab 11/23/22 11/29/22 oxyCODONE [Roxicodone] 5 - 10 mg PO Q4HR PRN #10 tab 11/23/22 11/29/22 HYDROmorphone [Dilaudid] 2 mg PO Q6H PRN #20 tablet 11/29/22 Magnesium Oxide [Mag Ox] 400 mg PO DAILY #30 tablet 11/29/22 Calcium Carbonate [Tums (Calcium 500 mg PO BID #20 tablet 03/02/23 Carbonate 500mg)] Magnesium Oxide [Mag Ox] 400 mg PO BIDWM #20 tablet 03/02/23 Potassium Chloride [K-Dur] 20 meq PO BIDWM #10 tablet 03/02/23 Potassium Bicarbonate 25 meq PO BID #20 tablet 03/03/23 [K-Effervescent] chlordiazePOXIDE [Librium] 10 mg PO Q6H PRN #10 cap 05/02/23 - Allergies Allergies/Adverse Reactions: Allergies Allergy/AdvReac Type Severity Reaction Status Date / Time No Known Drug Allergies Allergy Verified 05/12/23 16:04 - Social History Does the pt smoke?: Yes Smoking Status: Current every day smoker Does the pt drink ETOH?: Yes Does the pt have substance abuse?: Yes - Immunizations Immunizations are current?: Yes - POLST Patient has POLST: No PD ED PE NORMAL - Vitals Vital signs reviewed: Yes - General General: Alert and oriented X 3, No acute distress, Well developed/nourished, Other (slurred but intelligible speech, answers are vague at time but overall appropriate ) - HEENT HEENT: Moist mucous membranes - Neck Neck: Supple, no meningeal sign - Cardiac Cardiac: No murmur - Respiratory Respiratory: No respiratory distress, Clear bilaterally - Abdomen Abdomen: Soft, Non tender, Non distended - Derm Derm: Normal color, Warm and dry PD ED PE EXPANDED - Cardiac Cardiac: Tachy, Regular Rhythm Results - Vitals Vitals: Vital Signs - 24 hr 05/12/23 05/13/23 16:04 00:15 Temperature 36.8 C 36.4 C L Heart Rate 110 H 84 Respiratory 18 16 Rate Blood Pressure 132/90 H 130/100 H O2 Saturation 98 96 Oxygen O2 Source Room air - Labs Labs: Laboratory Tests 05/12/23 05/12/23 05/12/23 17:12 17:12 21:15 WBC 8.0 RBC 4.29 L Hgb 12.5 L Hct 38.0 L MCV 88.6 MCH 29.1 MCHC 32.9 RDW 17.5 H Plt Count 198 MPV 9.7 Neut # (Auto) 3.4 Lymph # (Auto) 3.5 Smith # (Auto) 1.0 Eos # (Auto) 0.1 Baso # (Auto) 0.1 Absolute Nucleated RBC 0.00 Nucleated RBC % 0.0 Sodium 142 Potassium 3.1 L Chloride 105 Carbon Dioxide 26 Anion Gap 11.0 BUN 3 L Creatinine 0.5 L Estimated GFR (MDRD) 194 Glucose 98 Calcium 8.6 Magnesium 1.4 L Total Bilirubin 1.1 H AST 96 H ALT 69 H Alkaline Phosphatase 223 H Total Protein 8.1 Albumin 4.3 Globulin 3.8 Albumin/Globulin Ratio 1.1 Lipase 32 TSH 0.32 L Urine Color Urine Clarity Urine pH Ur Specific Gaylord Urine Protein Urine Glucose (UA) Urine Ketones Urine Occult Blood Urine Nitrite Urine Bilirubin Urine Urobilinogen Ur Leukocyte Esterase Ur Microscopic Review Urine Culture Comments Salicylates < 1.5 Urine Opiates Screen Ur Buprenorphine Scrn Ur Oxycodone Screen Urine Methadone Screen Acetaminophen 0.1 Ur Barbiturates Screen Ur Tricyclics Screen Ur Phencyclidine Scrn Ur Amphetamine Screen U Methamphetamines Scrn U Benzodiazepines Scrn Urine Cocaine Screen U Cannabinoids Screen Ur Drug Screen Comment Ethyl Alcohol 482.6 SARS-CoV-2 (PCR) 05/12/23 05/12/23 05/12/23 22:28 22:40 23:33 WBC RBC Hgb Hct MCV MCH MCHC RDW Plt Count MPV Neut # (Auto) Lymph # (Auto) Smith # (Auto) Eos # (Auto) Baso # (Auto) Absolute Nucleated RBC Nucleated RBC % Sodium 143 Potassium 3.3 L Chloride 105 Carbon Dioxide 24 Anion Gap 14.0 H BUN 3 L Creatinine 0.5 L Estimated GFR (MDRD) 194 Glucose 90 Calcium 8.5 Magnesium 2.1 Total Bilirubin AST ALT Alkaline Phosphatase Total Protein Albumin Globulin Albumin/Globulin Ratio Lipase TSH Urine Color DARK YELLOW Urine Clarity CLEAR Urine pH 6.0 Ur Specific Gaylord 1.010 Urine Protein TRACE Urine Glucose (UA) NEGATIVE Urine Ketones NEGATIVE Urine Occult Blood NEGATIVE Urine Nitrite NEGATIVE Urine Bilirubin SMALL H Urine Urobilinogen 1 (NORMAL) Ur Leukocyte Esterase NEGATIVE Ur Microscopic Review NOT INDICATED Urine Culture Comments NOT INDICATED Salicylates Urine Opiates Screen NEGATIVE Ur Buprenorphine Scrn NEGATIVE Ur Oxycodone Screen NEGATIVE Urine Methadone Screen NEGATIVE Acetaminophen Ur Barbiturates Screen NEGATIVE Ur Tricyclics Screen NEGATIVE Ur Phencyclidine Scrn NEGATIVE Ur Amphetamine Screen POSITIVE H U Methamphetamines Scrn POSITIVE H U Benzodiazepines Scrn NEGATIVE Urine Cocaine Screen NEGATIVE U Cannabinoids Screen POSITIVE H Ur Drug Screen Comment CUTOFF CONC BELOW: Ethyl Alcohol SARS-CoV-2 (PCR) NOT DETECTED PD Medical Decision Making - ED course Complexity details: reviewed results, re-evaluated patient, considered differential, d/w patient ED course: I spoke with staff at [facility]. Their concern is that patient was denied entry to [facility] earlier this month due to very low potassium and magnesium; [facility] ED notes from earlier this month confirm these values were critically low but repleted prior to d/c. Staff at [facility] says that the would consider patient for their facility if ED MD can medically clear the patient overall, as well as specifically with regard to his potassium magnesium levels. Patient has no concerning findings on CBC (hemoglobin is slightly below normal range at 12.5). Potassium is 3.1. He is given 25 mEq potassium bicarbonate orally x 2 doses. Repeat potassium is 3.3. Magnesium is 1.4 on initial check, given 2 g magnesium sulfate IV, and on recheck the magnesium is 2.1. He is COVID-negative. His urine drug screen is positive for amphetamines/methamphetamines, cannabinoids. His serum alcohol level is 482. On reevaluation after both initial labs as well as the rechecks noted above, patient is awake, alert, oriented x 3. He is expressing a strong desire to get into [facility] for detox. He has been patient and polite throughout this process. At this point, patient is medically cleared for discharge, hopefully will be able to get into [facility] at this point. Departure - Departure Disposition: 01 Home, Self Care Clinical Impression: Alcoholism, Hypokalemia Condition: Good Instructions: ED Potassium Deficiency, ED Alcohol Abuse Comments: You have been medically cleared for discharge from the emergency department; I have been in touch with staff at [facility] and they should be contacting you shortly. Hopefully, they will be able to proceed with intake for you to get into [facility]. Forms: PCP List
[2023-05-12] MEDS ORDERED: FOLIC ACID IV STA (21:09)
[2023-05-12] MEDS ORDERED: [UNRECOGNIZED DRUG - OTHER] IV STA (21:09)
[2023-05-12] MEDS ORDERED: MAGNESIUM SULFATE IV STA ×2 (21:09→21:46)
[2023-05-12] MEDS ORDERED: THIAMINE IV STA ×2 (21:09→21:46)
[2023-05-12] MEDS ORDERED: MULTIVITAMIN IV STA (21:09)
[2023-05-12] MEDS ORDERED: POTASSIUM BICARB 25 MEQ TABLET PO STA ×2 (21:18→23:09)
[2023-05-12] MEDS ORDERED: MAGNESIUM SULFATE 1 GM/2 ML VIAL ONE ×2 (21:35→22:38)
[2023-05-12] MEDS ORDERED: THIAMINE 100 MG/1 ML 2 ML MDV ONE ×2 (21:35→22:38)
[2023-05-12] MEDS ORDERED: FOLIC ACID 1 MG TABLET PO STA (21:44)
[2023-05-12] MEDS ORDERED: SODIUM CHLORIDE 0.9% IV STA (21:46)
[2023-05-12 22:48] LABS: BILIRUBIN,URINE SMALL (NEGATIVE); GLUCOSE, URINE (UA) NEGATIVE (NEGATIVE); KETONES,URINE (UA) NEGATIVE (NEGATIVE); LEUKOCYTE ESTERASE, URINE NEGATIVE (NEGATIVE); NITRITE,URINE NEGATIVE (NEGATIVE); OCCULT BLOOD,URINE NEGATIVE (NEGATIVE); PROTEIN,URINE TRACE mg/dL (NEGATIVE); UROBILINOGEN,URINE 1 (NORMAL) E.U./dL (NORMAL)
[2023-05-12 22:57] LABS: CLARITY,URINE CLEAR (CLEAR)
[2023-05-12 23:02] LABS: AMPHETAMINE SCREEN,URINE POSITIVE (NEGATIVE); BARBITURATE SCREEN,UR NEGATIVE (NEGATIVE); BENZODIAZEPINES SCREEN, URINE NEGATIVE (NEGATIVE); BUPRENORPHINE SCREEN, URINE NEGATIVE (NEGATIVE); COCAINE SCREEN URINE NEGATIVE (NEGATIVE); METHADONE SCREEN, URINE NEGATIVE (NEGATIVE); METHAMPHETAMINES SCREEN, URINE POSITIVE (NEGATIVE); OPIATE SCREEN, URINE NEGATIVE (NEGATIVE); OXYCODONE SCREEN, URINE NEGATIVE (NEGATIVE); THC CANNABINOID SCREEN, URINE POSITIVE (NEGATIVE); TRICYCLIC ANTIDEPRESSANT,URINE NEGATIVE (NEGATIVE)
[2023-05-13 00:07] LABS: CALCIUM 8.5 mg/dL (8.5-10.3); CREATININE 0.5 mg/dL (0.6-1.3); MAGNESIUM 2.1 mg/dL (1.7-2.3); POTASSIUM 3.3 mmol/L (3.5-4.5)
[2023-05-13 00:26] VITALS: BP 130/100; O2SAT 96
== END 2023-05-13 00:30 | disposition home or self-care (01) ==
LOC: ED 16:00
DX: F10.20 Alcohol dependence, uncomplicated (principal); Y90.8 Blood alcohol level of 240 mg/100 ml or more; E87.6 Hypokalemia; F17.200 Nicotine dependence, unspecified, uncomplicated; Z79.899 Other long term (current) drug therapy
CPT/HCPCS: 36415; 80048; 80053; 80306; 80307; 80320; 80329; 81003; 83690; 83735; 84443; 85025; 87635; 96365; 99284; A9270; J3411; 81001; 87086

== ENCOUNTER 2023-05-17 16:03 | Outpatient (CLI) | payer MEDICAID | END 2023-05-17 23:59 | disposition critical access hospital (66) | LOC: EMS 16:03 | DX: R25.2 Cramp and spasm (principal) | CPT/HCPCS: A0425; A0429; A0999 ==

== ENCOUNTER 2023-05-17 16:27 | Emergency (ER) | payer MEDICAID ==
--- NOTE | 2023-05-17 16:41 | ED Physician Documentation ---
History of Present Illness - Stated complaint Stated Complaint: HANDS CRAMPING - Chief complaint Chief Complaint: General - History obtained from History obtained from: Patient, EMS - History of Present Illness Timing: Today Pain level max: 3 Pain level now: 2 - Additonal information Additional information: Patient is a 32-year-old male with a history of alcoholism who and liver disease, presents via EMS from [facility], the detox [place]. He is scheduled to a residential treatment program on Friday. He states today he had some pain near his liver which is not uncommon for him, states that he started hyperventilating causing his hands to cramp. This has happened several times in the past. He states that his symptoms have since resolved. No chest pain. No shortness of breath. He states that he had been on omeprazole, but has been receiving famotidine instead. States his GERD is worse than usual, requesting a PPI. No fevers. No chills. No abdominal pain other than the chronic liver pain, nausea or vomiting. Review of Systems Constitutional: denies: Fever, Chills GI: denies: Vomiting, Diarrhea Skin: denies: Rash Musculoskeletal: denies: Neck pain, Back pain Neurologic: denies: Headache PD PAST MEDICAL HISTORY - Past Medical History Past Medical History: Yes Cardiovascular: None Respiratory: None Neuro: None Endocrine/Autoimmune: None GI: GERD, Esophageal varices, GI bleed, Pancreatitis, Cirrhosis : None HEENT: None Psych: Depression Musculoskeletal: None Derm: None - Past Surgical History Past Surgical History: No General: EGD - Present Medications Home Medications: Ambulatory Orders Medication Instructions Recorded Confirmed Omeprazole Magnesium 20 mg PO QDAC 07/02/22 11/29/22 Multivitamin [Theragran] 1 tab PO DAILY 10/23/22 11/23/22 Furosemide [Lasix] 20 mg PO DAILY #30 tablet 11/01/22 11/23/22 Lactulose 15 ml PO DAILY PRN #30 ea 11/01/22 11/23/22 Thiamine [Vitamin B-1] 100 mg PO DAILY tab 11/01/22 11/23/22 Calcium Carbonate [Tums (Calcium 500 mg PO BID tab 11/13/22 11/23/22 Carbonate 500mg)] Spironolactone [Aldactone] 100 mg PO DAILY #120 tab 11/13/22 11/23/22 oxyCODONE [Roxicodone] 5 mg PO Q4HR PRN #30 tab 11/13/22 11/23/22 HYDROmorphone [Dilaudid] 2 mg PO Q6H PRN #10 tablet 11/23/22 Ibuprofen [Ibu-200] 3 tab PO DAILY PRN 11/23/22 11/23/22 Magnesium Oxide 1 tab PO DAILY 11/23/22 11/29/22 Metoprolol Succinate [Toprol Xl] 50 mg PO DAILY #30 tab 11/23/22 Potassium Chloride 3 cap PO DAILY 11/23/22 11/29/22 Sertraline [Zoloft] 50 mg PO DAILY #60 tab 11/23/22 11/29/22 oxyCODONE [Roxicodone] 5 - 10 mg PO Q4HR PRN #10 tab 11/23/22 11/29/22 HYDROmorphone [Dilaudid] 2 mg PO Q6H PRN #20 tablet 11/29/22 Magnesium Oxide [Mag Ox] 400 mg PO DAILY #30 tablet 11/29/22 Calcium Carbonate [Tums (Calcium 500 mg PO BID #20 tablet 03/02/23 Carbonate 500mg)] Magnesium Oxide [Mag Ox] 400 mg PO BIDWM #20 tablet 03/02/23 Potassium Chloride [K-Dur] 20 meq PO BIDWM #10 tablet 03/02/23 Potassium Bicarbonate 25 meq PO BID #20 tablet 03/03/23 [K-Effervescent] chlordiazePOXIDE [Librium] 10 mg PO Q6H PRN #10 cap 05/02/23 Omeprazole 40 mg PO DAILY #30 cap 05/17/23 - Allergies Allergies/Adverse Reactions: Allergies Allergy/AdvReac Type Severity Reaction Status Date / Time No Known Drug Allergies Allergy Verified 05/17/23 16:33 - Social History Does the pt smoke?: Yes Smoking Status: Current every day smoker Does the pt drink ETOH?: Yes Does the pt have substance abuse?: Yes - Immunizations Immunizations are current?: Yes - POLST Patient has POLST: No PD ED PE NORMAL - Vitals Vital signs reviewed: Yes - General General: Alert and oriented X 3, No acute distress - HEENT HEENT: PERRL, Moist mucous membranes - Neck Neck: Supple, no meningeal sign - Cardiac Cardiac: RRR, Strong equal pulses - Respiratory Respiratory: No respiratory distress, Clear bilaterally - Abdomen Abdomen: Soft, Non tender, Non distended - Derm Derm: Warm and dry - Extremities Extremities: No deformity, No edema, No calf tenderness / cord - Neuro Neuro: Alert and oriented X 3 - Psych Psych: Normal mood, Normal affect Results - Vitals Vitals: Vital Signs - 24 hr 05/17/23 05/17/23 16:30 18:11 Temperature 37 C Heart Rate 99 99 Respiratory 18 19 Rate Blood Pressure 109/86 H 97/58 L O2 Saturation 99 100 Oxygen O2 Source Room air - Labs Labs: Laboratory Tests 05/17/23 05/17/23 16:50 16:50 WBC 9.8 RBC 3.92 L Hgb 11.7 L Hct 36.0 L MCV 91.8 MCH 29.8 MCHC 32.5 RDW 17.5 H Plt Count 109 L MPV 10.5 Neut # (Auto) 6.6 Lymph # (Auto) 2.4 [place] # (Auto) 0.7 Eos # (Auto) 0.1 Baso # (Auto) 0.1 Absolute Nucleated RBC 0.00 Nucleated RBC % 0.0 Sodium 137 Potassium 3.6 Chloride 98 L Carbon Dioxide 30 Anion Gap 9.0 BUN 7 Creatinine 0.6 Estimated GFR (MDRD) 157 Glucose 98 Calcium 9.9 Magnesium 1.1 L Total Bilirubin 1.2 H AST 81 H ALT 47 Alkaline Phosphatase 182 H Total Protein 7.3 Albumin 4.1 Globulin 3.2 Albumin/Globulin Ratio 1.3 Lipase 90 H PD Medical Decision Making - ED course Complexity details: reviewed results, re-evaluated patient, considered differential, d/w patient ED course: Patient is asymptomatic here. Did have hypomagnesemia, magnesium was given oral ly. appears to have had a panic attack today. He does request a prescription for omeprazole for home, this was given to him. He also requested a dose here, Protonix given. Patient is fully asymptomatic in the emergency department. Patient counseled regarding signs and symptoms for which I believe and urgent re-evaluation would be necessary. Patient with good understanding of and agreement to plan and is comfortable going home at this time This document was made in part using voice recognition software. While efforts are made to proofread this document, sound alike and grammatical errors may occur. Departure - Departure Disposition: Home, Self Care Clinical Impression: Spasms of the hands or feet Condition: Good Instructions: ED Panic Attack Follow-Up: Radha Mills ARNP [Primary Care Provider] - Prescriptions: Omeprazole 40 mg PO DAILY #30 cap Comments: Your laboratory testing does not show any significant acute abnormalities today. Please follow-up with your doctor for further care. Please return if you worsen. I have given you a prescription for omeprazole today as well. Forms: PCP List Discharge Date/Time: 05/17/23 20:02
[2023-05-17] MEDS: SUCRALFATE 1 GM/10 ML UDC PO STA (16:55)
[2023-05-17] MEDS: KETOROLAC 30 MG/ML VIAL IM STA (16:55)
[2023-05-17] MEDS: PANTOPRAZOLE 40 MG TABLET PO STA (16:55)
[2023-05-17 17:00] LABS: BASOPHILS # (AUTO) 0.1 10^3/uL (0.0-0.1); BASOPHILS % (AUTO) 0.6 %; EOSINOPHILS # (AUTO) 0.1 10^3/uL (0.0-0.7); EOSINOPHILS % (AUTO) 0.8 %; HGB - HEMOGLOBIN 11.7 g/dL (14.0-18.0); LYMPHOCYTES # (AUTO) 2.4 10^3/uL (1.5-3.5); LYMPHOCYTES % (AUTO) 24.6 %; MEAN CORPUSCULAR HEMOGLOBIN 29.8 pg (27.0-31.0); MEAN CORPUSCULAR HGB CONC 32.5 g/dL (32.0-36.0); MEAN CORPUSCULAR VOLUME 91.8 fL (80.0-94.0); MEAN PLATELET VOLUME 10.5 fL (7.4-11.4); MONOCYTES # (AUTO) 0.7 10^3/uL (0.0-1.0); MONOCYTES % (AUTO) 7.1 %; NEUTROPHILS # (AUTO) 6.6 10^3/uL (1.5-6.6); NEUTROPHILS % (AUTO) 66.7 %; PLT - PLATELET COUNT 109 10^3/uL (130-450); RED BLOOD COUNT 3.92 10^6/uL (4.70-6.10); RED CELL DISTRIBUTION WIDTH 17.5 % (12.0-15.0); WHITE BLOOD COUNT 9.8 x10^3/uL (4.8-10.8)
[2023-05-17 17:38] LABS: ALBUMIN 4.1 g/dL (3.2-5.5); ALBUMIN/GLOBULIN RATIO 1.3 (1.0-2.2); BILIRUBIN,TOTAL 1.2 mg/dL (0.2-1.0); CALCIUM 9.9 mg/dL (8.5-10.3); CREATININE 0.6 mg/dL (0.6-1.3); MAGNESIUM 1.1 mg/dL (1.7-2.3); POTASSIUM 3.6 mmol/L (3.5-4.5); TOTAL PROTEIN 7.3 g/dL (6.4-8.9)
[2023-05-17 18:14] VITALS: BP 97/58; O2SAT 100
[2023-05-17] MEDS: MAGNESIUM OXIDE 400 MG TABLET PO STA (19:53)
== END 2023-05-17 20:02 | disposition home or self-care (01) ==
LOC: EDUNIT# → ED 16:27
DX: R25.2 Cramp and spasm (principal); E83.42 Hypomagnesemia; K21.9 Gastro-esophageal reflux disease without esophagitis; F17.200 Nicotine dependence, unspecified, uncomplicated; Z79.899 Other long term (current) drug therapy
CPT/HCPCS: 36415; 80053; 83690; 83735; 85025; 96372; 99283; A9270

== ENCOUNTER 2023-06-19 12:48 | Outpatient (CLI) | payer MEDICAID | END 2023-06-19 12:49 | disposition critical access hospital (66) | LOC: EMS 12:48 | DX: T42.6X2A Poisoning by other antiepileptic and sedative-hypnotic drugs, intentional self-harm, initial encounter (principal); T46.5X2A Poisoning by other antihypertensive drugs, intentional self-harm, initial encounter; R47.81 Slurred speech; R45.1 Restlessness and agitation; Z78.1 Physical restraint status | CPT/HCPCS: A0425; A0429; A0999 ==

== ENCOUNTER 2023-06-19 13:08 | Emergency (ER) | payer MEDICAID ==
--- NOTE | 2023-06-19 13:22 | ED Physician Documentation ---
PD HPI MHE - Stated complaint Stated Complaint: OD/COMBATIVE - Chief complaint Chief Complaint: MHE - History obtained from History obtained from: Patient, EMS, Police - History of Present Illness Primary symptom: Self harm - OD Pain level max: 0 Pain level now: 0 Contributing factors: Substance abuse - ETOH - Additional information Additional information: 32-year-old male, chronic alcoholic presents to the emergency department after drinking a large amount of alcohol this morning and intentionally ingesting 27 pills of gabapentin, 300 mg each. Approximately 7 pills of 0.2 mg clonidine and an unknown amount of 50 mg trazodone. He reportedly ingested these pills about 2 hours prior to arrival. He was combative with EMS and police. Brought in in restraints. Patient is not readily answering questions at this time, mainly due to not wanting to talk to me. Review of Systems Unable to obtain: Intoxicated, Uncooperative PD PAST MEDICAL HISTORY - Past Medical History Cardiovascular: None Respiratory: None Neuro: None Endocrine/Autoimmune: None GI: GERD, Esophageal varices, GI bleed, Pancreatitis, Cirrhosis : None HEENT: None Psych: Depression Musculoskeletal: None Derm: None - Past Surgical History Past Surgical History: No General: EGD - Present Medications Home Medications: Ambulatory Orders Medication Instructions Recorded Confirmed Omeprazole Magnesium 20 mg PO QDAC 07/02/22 11/29/22 Multivitamin [Theragran] 1 tab PO DAILY 10/23/22 11/23/22 Furosemide [Lasix] 20 mg PO DAILY #30 tablet 11/01/22 11/23/22 Lactulose 15 ml PO DAILY PRN #30 ea 11/01/22 11/23/22 Thiamine [Vitamin B-1] 100 mg PO DAILY tab 11/01/22 11/23/22 Calcium Carbonate [Tums (Calcium 500 mg PO BID tab 11/13/22 11/23/22 Carbonate 500mg)] Spironolactone [Aldactone] 100 mg PO DAILY #120 tab 11/13/22 11/23/22 oxyCODONE [Roxicodone] 5 mg PO Q4HR PRN #30 tab 11/13/22 11/23/22 HYDROmorphone [Dilaudid] 2 mg PO Q6H PRN #10 tablet 11/23/22 Ibuprofen [Ibu-200] 3 tab PO DAILY PRN 11/23/22 11/23/22 Magnesium Oxide 1 tab PO DAILY 11/23/22 11/29/22 Metoprolol Succinate [Toprol Xl] 50 mg PO DAILY #30 tab 11/23/22 Potassium Chloride 3 cap PO DAILY 11/23/22 11/29/22 Sertraline [Zoloft] 50 mg PO DAILY #60 tab 11/23/22 11/29/22 oxyCODONE [Roxicodone] 5 - 10 mg PO Q4HR PRN #10 tab 11/23/22 11/29/22 HYDROmorphone [Dilaudid] 2 mg PO Q6H PRN #20 tablet 11/29/22 Magnesium Oxide [Mag Ox] 400 mg PO DAILY #30 tablet 11/29/22 Calcium Carbonate [Tums (Calcium 500 mg PO BID #20 tablet 03/02/23 Carbonate 500mg)] Magnesium Oxide [Mag Ox] 400 mg PO BIDWM #20 tablet 03/02/23 Potassium Chloride [K-Dur] 20 meq PO BIDWM #10 tablet 03/02/23 Potassium Bicarbonate 25 meq PO BID #20 tablet 03/03/23 [K-Effervescent] chlordiazePOXIDE [Librium] 10 mg PO Q6H PRN #10 cap 05/02/23 Omeprazole 40 mg PO DAILY #30 cap 05/17/23 - Allergies Allergies/Adverse Reactions: Allergies Allergy/AdvReac Type Severity Reaction Status Date / Time No Known Drug Allergies Allergy Verified 05/17/23 16:33 - Social History Does the pt smoke?: Yes Smoking Status: Current every day smoker Does the pt drink ETOH?: Yes Does the pt have substance abuse?: Yes - Immunizations Immunizations are current?: Yes - POLST Patient has POLST: No PD ED PE NORMAL - Vitals Vital signs reviewed: Yes - General General: No acute distress, Well developed/nourished, Other (Angry, belligerent, uncooperative.) - HEENT HEENT: Atraumatic, PERRL, Moist mucous membranes - Neck Neck: Supple, no meningeal sign - Cardiac Cardiac: RRR, Strong equal pulses - Respiratory Respiratory: No respiratory distress, Clear bilaterally - Abdomen Abdomen: Soft, Non tender, Non distended - Derm Derm: Warm and dry - Extremities Extremities: No deformity - Neuro Neuro: Other (Alert, oriented to person and place) Results - Vitals Vitals: Vital Signs - 24 hr 06/19/23 06/19/23 06/19/23 13:28 13:30 13:37 Temperature 36.6 C Heart Rate 91 90 110 H Respiratory 18 18 18 Rate Blood Pressure 127/93 H 127/93 H 146/77 H O2 Saturation 97 97 94 If not protocol : Oxygen Flow, liters/minute 06/19/23 06/19/23 06/19/23 13:42 13:57 14:12 Temperature Heart Rate 107 H 112 H 114 H Respiratory 15 24 20 Rate Blood Pressure 123/105 H 146/89 H 130/65 O2 Saturation 99 97 94 If not protocol : Oxygen Flow, liters/minute 06/19/23 06/19/23 06/19/23 14:30 15:07 15:30 Temperature Heart Rate 98 119 H 123 H Respiratory 17 18 17 Rate Blood Pressure 118/97 H 147/77 H 128/60 O2 Saturation 95 94 94 If not protocol 2 : Oxygen Flow, liters/minute 06/19/23 06/19/23 06/19/23 16:12 16:30 18:12 Temperature Heart Rate 114 H 115 H 109 H Respiratory 18 17 14 Rate Blood Pressure 133/95 H 101/55 L 117/65 O2 Saturation 96 94 94 If not protocol : Oxygen Flow, liters/minute 06/19/23 06/19/23 06/19/23 18:50 18:56 20:05 Temperature 37.2 C Heart Rate 108 H 108 H Respiratory 13 16 Rate Blood Pressure 115/56 L 115/64 O2 Saturation 89 L 97 94 If not protocol 2 : Oxygen Flow, liters/minute Oxygen O2 Source Room air - EKG (time done) 1330 EKG releavant findings:: EKG personally interpreted by author of this note. Relevant findings are: Rate: Rate (enter#) (87) Rhythm: NSR [place]: Normal Intervals: Normal SC QRS: Normal Ischemia: Normal ST segments, Q waves (V1-2) 2006 EKG releavant findings:: EKG personally interpreted by author of this note. Relevant findings are: Rate: Rate (enter#) (111) Rhythm: Sinus tachycardia [place]: Normal Intervals: Normal SC QRS: Normal Ischemia: Normal ST segments - Labs Labs: Laboratory Tests 06/19/23 06/19/23 06/19/23 13:18 13:28 13:28 WBC 13.8 H RBC 4.39 L Hgb 13.0 L Hct 38.7 L MCV 88.2 MCH 29.6 MCHC 33.6 RDW 17.3 H Plt Count 152 MPV 9.6 Neut # (Auto) 7.9 H Lymph # (Auto) 4.7 H [place] # (Auto) 1.0 Eos # (Auto) 0.0 Baso # (Auto) 0.1 Absolute Nucleated RBC 0.00 Nucleated RBC % 0.0 Sodium 143 Potassium 3.3 L Chloride 104 Carbon Dioxide 23 Anion Gap 16.0 H BUN 6 Creatinine 0.6 Estimated GFR (MDRD) 157 Glucose 93 Calcium 9.3 Phosphorus 5.0 Magnesium 1.4 L Total Bilirubin 0.9 AST 32 ALT 18 Alkaline Phosphatase 122 H Total Creatine Kinase 103 Total Protein 7.7 Albumin 4.4 Globulin 3.3 Albumin/Globulin Ratio 1.3 Lipase 25 TSH 0.32 L Urine Color YELLOW Urine Clarity CLEAR Urine pH 6.0 Ur Specific [place] <=1.005 Urine Protein NEGATIVE Urine Glucose (UA) NEGATIVE Urine Ketones NEGATIVE Urine Occult Blood NEGATIVE Urine Nitrite NEGATIVE Urine Bilirubin NEGATIVE Urine Urobilinogen 0.2 (NORMAL) Ur Leukocyte Esterase NEGATIVE Ur Microscopic Review NOT INDICATED Urine Culture Comments NOT INDICATED Salicylates < 1.5 Urine Opiates Screen NEGATIVE Ur Buprenorphine Scrn NEGATIVE Ur Oxycodone Screen NEGATIVE Urine Methadone Screen NEGATIVE Acetaminophen 0.3 Ur Barbiturates Screen NEGATIVE Ur Tricyclics Screen NEGATIVE Ur Phencyclidine Scrn NEGATIVE Ur Amphetamine Screen NEGATIVE U Methamphetamines Scrn NEGATIVE U Benzodiazepines Scrn NEGATIVE Urine Cocaine Screen NEGATIVE U Cannabinoids Screen NEGATIVE Ur Drug Screen Comment CUTOFF CONC BELOW: Ethyl Alcohol 339.3 SARS-CoV-2 (PCR) 06/19/23 06/19/23 06/19/23 13:28 15:05 19:50 WBC RBC Hgb Hct MCV MCH MCHC RDW Plt Count MPV Neut # (Auto) Lymph # (Auto) [place] # (Auto) Eos # (Auto) Baso # (Auto) Absolute Nucleated RBC Nucleated RBC % Sodium Potassium Chloride Carbon Dioxide Anion Gap BUN Creatinine Estimated GFR (MDRD) Glucose Calcium Phosphorus Magnesium 1.4 L Total Bilirubin AST ALT Alkaline Phosphatase Total Creatine Kinase Total Protein Albumin Globulin Albumin/Globulin Ratio Lipase TSH Urine Color Urine Clarity Urine pH Ur Specific [place] Urine Protein Urine Glucose (UA) Urine Ketones Urine Occult Blood Urine Nitrite Urine Bilirubin Urine Urobilinogen Ur Leukocyte Esterase Ur Microscopic Review Urine Culture Comments Salicylates Urine Opiates Screen Ur Buprenorphine Scrn Ur Oxycodone Screen Urine Methadone Screen Acetaminophen Ur Barbiturates Screen Ur Tricyclics Screen Ur Phencyclidine Scrn Ur Amphetamine Screen U Methamphetamines Scrn U Benzodiazepines Scrn Urine Cocaine Screen U Cannabinoids Screen Ur Drug Screen Comment Ethyl Alcohol 190.3 SARS-CoV-2 (PCR) NOT DETECTED PD Medical Decision Making - ED course Complexity details: reviewed results, re-evaluated patient, considered differential, d/w patient ED course: Patient is violent and combative shortly after arrival in the emergency department. Pills were removed in a baggy from underneath his underwear. He was placed in the locked restraints. Given Zyprexa and ketamine. Patient was sedated in the emergency department. Eventually the patient's alcohol level continued to drop and the patient became more more sober. He was able to be removed from restraints in the emergency department. He was given an IV and magnesium was replaced with IV magnesium. Patient will need reassessment when he is sober, suspect that this is around 1 AM. At that point determination will be made if DCR versus telepsychiatry will be consulted. As he did attempt suicide with an overdose, do not feel that he is safe to go home without a psychiatry or DCR evaluation. Patient signed out to the oncoming emergency department physician. This document was made in part using voice recognition software. While efforts are made to proofread this document, sound alike and grammatical errors may occur. Departure - Departure Clinical Impression: Alcoholism, Hypomagnesemia, Attempted suicide Alcoholic intoxication Qualifiers: Complication of substance-induced condition: uncomplicated Qualified Code(s): F10.920 - Alcohol use, unspecified with intoxication, uncomplicated Condition: Stable Forms: PCP List
[2023-06-19 13:32] LABS: BILIRUBIN,URINE NEGATIVE (NEGATIVE); GLUCOSE, URINE (UA) NEGATIVE (NEGATIVE); KETONES,URINE (UA) NEGATIVE (NEGATIVE); LEUKOCYTE ESTERASE, URINE NEGATIVE (NEGATIVE); NITRITE,URINE NEGATIVE (NEGATIVE); OCCULT BLOOD,URINE NEGATIVE (NEGATIVE); PROTEIN,URINE NEGATIVE (NEGATIVE); UROBILINOGEN,URINE 0.2 (NORMAL) E.U./dL (NORMAL)
[2023-06-19 13:33] LABS: CLARITY,URINE CLEAR (CLEAR)
[2023-06-19 13:38] LABS: BASOPHILS # (AUTO) 0.1 10^3/uL (0.0-0.1); BASOPHILS % (AUTO) 0.4 %; EOSINOPHILS % (AUTO) 0.1 %; HCT - HEMATOCRIT 38.7 % (42.0-52.0); LYMPHOCYTES # (AUTO) 4.7 10^3/uL (1.5-3.5); LYMPHOCYTES % (AUTO) 34.3 %; MEAN CORPUSCULAR HEMOGLOBIN 29.6 pg (27.0-31.0); MEAN CORPUSCULAR HGB CONC 33.6 g/dL (32.0-36.0); MEAN CORPUSCULAR VOLUME 88.2 fL (80.0-94.0); MEAN PLATELET VOLUME 9.6 fL (7.4-11.4); MONOCYTES % (AUTO) 7.3 %; NEUTROPHILS # (AUTO) 7.9 10^3/uL (1.5-6.6); NEUTROPHILS % (AUTO) 57.6 %; PLT - PLATELET COUNT 152 10^3/uL (130-450); RED BLOOD COUNT 4.39 10^6/uL (4.70-6.10); RED CELL DISTRIBUTION WIDTH 17.3 % (12.0-15.0); WHITE BLOOD COUNT 13.8 x10^3/uL (4.8-10.8)
[2023-06-19] MEDS ORDERED: OLANZapine 10 MG VIAL IM ONE (13:42)
[2023-06-19] MEDS ORDERED: WATER FOR INJECTION,STERILE 10 ML MC ONE (13:42)
[2023-06-19] MEDS: OLANZapine 10 MG VIAL IM STA (13:42)
--- NOTE | 2023-06-19 13:45 | ED Physician Documentation ---
Restraint [id number] - Immediate Situation Face to Face Evaluation Date: 06/19/23 Face to Face Evaluation Time: 13:44 Restraint Classification: Violent, chemical w/ physical hold - Patient's Reaction & Behaviors Safety: Non-compliant, Unable to Follow Commands Verbal: Demanding, Screaming/Yelling, Swearing Harm: Actual harm to self, Actual harm to others, Potential harm to self, Potential harm to others Physical: Aggressive behavior, Fighting restraints Other: Attempting removal of medically necessary device(s) - Behavioral Condition Attitude: Other (angry) Behavior: Uncooperative, Belligerent, Agitated Orientation: Person, Situation Mood: Angry - Evaluation Current Medical Condition Relating to Need for Restraint: etoh, SI Pertinent History/Illicit Drugs/Medications/Results: etoh - Plan Need to Initiate/Renew Violent or Chemical Restraint: initiate
[2023-06-19 13:55] LABS: ACETAMINOPHEN 0.3 ug/mL; CK- CREATINE KINASE 103 IU/L (30-223); ETOH - ETHANOL 339.3 mg/dL; LIPASE 25 U/L (11-82); MAGNESIUM 1.4 mg/dL (1.7-2.3)
[2023-06-19 13:56] LABS: ALBUMIN 4.4 g/dL (3.2-5.5); ALBUMIN/GLOBULIN RATIO 1.3 (1.0-2.2); ALKALINE PHOSPHATASE 122 IU/L (42-121); ALT ALANINE AMINOTRANSFERASE 18 IU/L (10-60); AST ASPARTATE AMINOTRANSFERASE 32 IU/L (10-42); BILIRUBIN,TOTAL 0.9 mg/dL (0.2-1.0); BUN - BLOOD UREA NITROGEN 6 mg/dL (6-20); CALCIUM 9.3 mg/dL (8.5-10.3); CARBON DIOXIDE - CO2 23 mmol/L (21-32); CHLORIDE 104 mmol/L (101-111); CREATININE 0.6 mg/dL (0.6-1.3); GFR - MDRD 157 (>89); GLUCOSE 93 mg/dL (74-104); POTASSIUM 3.3 mmol/L (3.5-4.5); SALICYLATE < 1.5 mg/dL; SODIUM 143 mmol/L (135-145); TOTAL PROTEIN 7.7 g/dL (6.4-8.9)
[2023-06-19 14:03] LABS: AMPHETAMINE SCREEN,URINE NEGATIVE (NEGATIVE); BARBITURATE SCREEN,UR NEGATIVE (NEGATIVE); BENZODIAZEPINES SCREEN, URINE NEGATIVE (NEGATIVE); BUPRENORPHINE SCREEN, URINE NEGATIVE (NEGATIVE); COCAINE SCREEN URINE NEGATIVE (NEGATIVE); METHADONE SCREEN, URINE NEGATIVE (NEGATIVE); METHAMPHETAMINES SCREEN, URINE NEGATIVE (NEGATIVE); OPIATE SCREEN, URINE NEGATIVE (NEGATIVE); OXYCODONE SCREEN, URINE NEGATIVE (NEGATIVE); THC CANNABINOID SCREEN, URINE NEGATIVE (NEGATIVE); TRICYCLIC ANTIDEPRESSANT,URINE NEGATIVE (NEGATIVE)
[2023-06-19] MEDS: OLANZapine 10 MG VIAL IM ONE (14:03)
[2023-06-19 14:06] LABS: THYROID STIMULATING HORMONE 0.32 uIU/mL (0.34-5.60)
[2023-06-19] MEDS: KETAMINE 500 MG/10 ML VIAL IM STA (14:22)
[2023-06-19] MEDS: SODIUM CHLORIDE 0.9% 1,000 ML IV STA (15:09)
--- NOTE | 2023-06-19 15:29 | ED Physician Documentation ---
Restraint [id number] - Immediate Situation Face to Face Evaluation Date: 06/19/23 Face to Face Evaluation Time: 15:28 Restraint Classification: Violent, chemical w/ physical hold - Patient's Reaction & Behaviors Safety: Physically safe Other: Resting quietly (sedated) - Behavioral Condition Attitude: Other (sedated) Behavior: Other (sedated) Orientation: Person (sedated) Mood: Other (sedated) - Evaluation Pertinent History/Illicit Drugs/Medications/Results: etoh - Plan Need to Initiate/Renew Violent or Chemical Restraint: continue
--- NOTE | 2023-06-19 15:51 | ED Physician Documentation ---
Restraint [id number] - Immediate Situation Face to Face Evaluation Date: 06/19/23 Face to Face Evaluation Time: 15:48 Restraint Classification: Violent, physical, chemical (with locked restraints) - Patient's Reaction & Behaviors Safety: Physically safe Other: Resting quietly (sedated) - Behavioral Condition Attitude: Other (sedated) Behavior: Other (sedated) Orientation: Disoriented to all (sedated) Mood: Other (sedated) - Evaluation Pertinent History/Illicit Drugs/Medications/Results: etoh - Plan Need to Initiate/Renew Violent or Chemical Restraint: continue
--- NOTE | 2023-06-19 18:35 | ED Physician Documentation ---
Restraint [id number] - Immediate Situation Face to Face Evaluation Date: 06/19/23 Face to Face Evaluation Time: 18:34 Restraint Classification: Violent, physical, chemical - Patient's Reaction & Behaviors Safety: Physically safe Verbal: Swearing Harm: Actual harm to self, Actual harm to others, Potential harm to self, Potential harm to others Physical: Aggressive behavior Other: Resting quietly (has moments of resting quietly, then will start screaming at staff again) - Behavioral Condition Attitude: Other (aggressive) Behavior: Uncooperative, Agitated Orientation: Person, Place Mood: Angry - Evaluation Pertinent History/Illicit Drugs/Medications/Results: etoh - Plan Need to Initiate/Renew Violent or Chemical Restraint: continue
[2023-06-19] MEDS: MAGNESIUM SULFATE 2 GRAM 2 GM/50 ML BAG IV ONE (19:53)
[2023-06-19] MEDS: NICOTINE 21 MG PATCH TOP STA (23:46)
--- NOTE | 2023-06-20 00:42 | ED Physician Documentation ---
ED Addendum - Addendum Addendum: 06/20/23 00:41 Patient medically cleared for DCR evaluation. 06/20/23 03:02 No acute events so far in the night. patient compliant with staff. 06/20/23 03:46 He will be going to [facility] but requires CIWA protocol per their staff prior to transfer. Plan sedro vanesa at 1600. Plan to endorse to incoming daytime ED MD at 7am shift change.
[2023-06-20] MEDS: oxyCODONE/ACET 5/325 Prepack 4 PO STA (02:07)
[2023-06-20] MEDS: oxyCODONE 5 MG TABLET PO STA (02:15)
[2023-06-20] MEDS: ACETAMINOPHEN 325 MG TABLET PO STA (02:15)
[2023-06-20] MEDS: PANTOPRAZOLE 40 MG TABLET PO STA (07:17)
--- NOTE | 2023-06-20 08:15 | ED Physician Documentation ---
ED Addendum - Addendum Addendum: 06/20/23 Patient received in signout from Dr. Patel. Patient had been accepted to [facility] and plan was to monitor for alcohol withdrawal until 4 PM. However I was told that that acceptance has been withdrawn. CIWA scores overnight have been low. Nursing staff has reached out to DCR to notify them of that the acceptance has been rescinded. 06/20/23 08:15 Patient awake, currently cooperative. 06/20/23 09:45 Pt is independent with ADLs. 06/20/23 12:53 Patient has no apparent wound care needs. Per DCR Heidi he has been tentatively accepted at [facility]. 06/20/23 13:06 Pt given PO potassium for K of 3.3. 06/20/23 14:06 Patient has been accepted to [facility] behavioral unit. COBRA's have been signed. Pt has been Home and cooperative. 1 dose of p.o. Ativan was ordered for transport given patient's history of anxiety regarding inpatient admission. Departure - Departure Disposition: [facility] Hosp/Unit DC/Xfer Clinical Impression: Alcoholism, Hypomagnesemia, Attempted suicide Alcoholic intoxication Qualifiers: Complication of substance-induced condition: uncomplicated Qualified Code(s): F10.920 - Alcohol use, unspecified with intoxication, uncomplicated Condition: Stable Forms: PCP List Discharge Date/Time: 06/20/23 16:43
[2023-06-20 08:33] VITALS: O2SAT 96
[2023-06-20] MEDS: cloNIDine 0.1 MG TABLET PO SCH ×2 (09:38→14:08)
[2023-06-20] MEDS: GABAPENTIN 300 MG CAPSULE PO SCH (09:39)
[2023-06-20] MEDS: POTASSIUM BICARB 25 MEQ TABLET PO ONE (13:47)
[2023-06-20 15:52] VITALS: BP 109/75
[2023-06-20] MEDS: LORazepam 1 MG TABLET PO PRN (16:28)
== END 2023-06-20 16:43 ==
LOC: EDUNIT# → ED 13:08
DX: T42.6X2A Poisoning by other antiepileptic and sedative-hypnotic drugs, intentional self-harm, initial encounter (principal); F10.920 Alcohol use, unspecified with intoxication, uncomplicated; E83.42 Hypomagnesemia; Z78.1 Physical restraint status
CPT/HCPCS: 36415; 80053; 80143; 80179; 80306; 81003; 82077; 82550; 83690; 83735; 84100; 84443; 85025; 87635; 93005; 96365; 96372; 99285; A9270; J8499; 81001; 87086

== ENCOUNTER 2023-07-02 00:12 | Outpatient (CLI) | payer MEDICAID | END 2023-07-02 00:13 | disposition EMS.NT | LOC: EMS 00:12 | DX: Z53.9 Procedure and treatment not carried out, unspecified reason (principal) ==

== ENCOUNTER 2023-08-26 20:05 | Emergency (ER) | payer MEDICAID ==
[2023-08-26 20:25] VITALS: BP 152/90; O2SAT 100
--- NOTE | 2023-08-26 20:44 | ED Physician Documentation ---
PD HPI HEAD INJURY - Stated complaint Stated Complaint: GLF,HIT HEAD - Chief complaint Chief Complaint: Trauma Hd/Nk - History obtained from History obtained from: Patient, Family - Additional information Additional information: The patient comes to the emergency department chief complaint of head injury. He according to his mother had left the house to go out side and talk with his cousin and mom states that After 20 minutes, he still had not returned. She states that around that time, she was notified by the neighbors that the patient had been found unconscious in the driveway. He appeared to have hit his head and was not able to be aroused by the neighbors so they called EMS. The patient by then was waking up and had no recollection not only of the fall but even of walking outside. He states that from what he does remember of earlier today, he was feeling fine all throughout the day. Patient mom states that the incident happened roughly an hour and 1/2 to 2 hours ago. Patient states after he came to he drank 3 bottles of water. He refused to go with EMS but after his head started to hurt, he decided to come to the ED after all, by private vehicle. The patient denies any neck pain. He states he has not been taking any new medications and has not had alcohol today. He states that he has been trying a lot harder to take care of his health and that he has not had to have a paracentesis for over 2 months. He is still doing some drinking though he is trying to quit. He denies any chest pain or shortness of breath. No palpitations. He states that the headache and a little dizziness, he is feeling fine now. PD PAST MEDICAL HISTORY - Past Medical History Past Medical History: Yes Cardiovascular: None Respiratory: None Neuro: None Endocrine/Autoimmune: None GI: GERD, Esophageal varices, GI bleed, Pancreatitis, Cirrhosis : None HEENT: None Psych: Depression Musculoskeletal: None Derm: None - Past Surgical History Past Surgical History: No General: EGD - Present Medications Home Medications: Ambulatory Orders Medication Instructions Recorded Confirmed Omeprazole 40 mg PO DAILY #30 cap 05/17/23 06/20/23 Gabapentin [Neurontin] 300 mg PO TID 06/20/23 06/20/23 cloNIDine [Catapres] 0.2 mg PO DAILY 06/20/23 06/20/23 traZODone [Desyrel] 1 - 2 tab PO HS 06/20/23 06/20/23 - Allergies Allergies/Adverse Reactions: Allergies Allergy/AdvReac Type Severity Reaction Status Date / Time No Known Drug Allergies Allergy Verified 05/17/23 16:33 - Social History Does the pt smoke?: Yes Smoking Status: Current every day smoker Does the pt drink ETOH?: Yes Does the pt have substance abuse?: Yes - Immunizations Immunizations are current?: Yes - POLST Patient has POLST: No PD ED PE NORMAL - Vitals Vital signs reviewed: Yes - General General: Alert and oriented X 3, No acute distress, Well developed/nourished - HEENT HEENT: PERRL, EOMI, Moist mucous membranes, Other (Large, approximately 7 cm diameter hematoma posterior-superior scalp with approximately 1 cm of elevation. No skin breakage. No bony deformity.) - Cardiac Cardiac: RRR, No murmur - Respiratory Respiratory: Clear bilaterally - Abdomen Abdomen: Normal bowel sounds, Soft, Non tender, Non distended - Derm Derm: Warm and dry - Extremities Extremities: No deformity - Neuro Neuro: Alert and oriented X 3 - Psych Psych: Normal mood, Normal affect Results - Vitals Vitals: Vital Signs - 24 hr 08/26/23 20:18 Temperature 36.6 C Heart Rate 114 H Respiratory 18 Rate Blood Pressure 152/90 H O2 Saturation 100 Oxygen O2 Source Room air - EKG (time done) 2117 EKG releavant findings:: EKG personally interpreted by author of this note. Relevant findings are: Rate: Rate (enter#) (94) Rhythm: NSR Lucile: Normal Intervals: Normal MA QRS: Normal Ischemia: ST elevation c/w repol - Labs Labs: Laboratory Tests 08/26/23 08/26/23 20:45 20:45 WBC 11.1 H RBC 4.58 L Hgb 13.6 L Hct 40.5 L MCV 88.4 MCH 29.7 MCHC 33.6 RDW 15.2 H Plt Count 106 L MPV 11.7 H Neut # (Auto) 8.6 H Lymph # (Auto) 1.5 [place] # (Auto) 0.9 Eos # (Auto) 0.0 Baso # (Auto) 0.0 Absolute Nucleated RBC 0.00 Nucleated RBC % 0.0 Sodium 132 L Potassium 3.2 L Chloride 93 L Carbon Dioxide 25 Anion Gap 14.0 H BUN 14 Creatinine 0.7 Estimated GFR (MDRD) 131 Glucose 90 Calcium 10.5 H Total Bilirubin 2.4 H AST 72 H ALT 55 Alkaline Phosphatase 224 H Total Protein 9.0 H Albumin 5.0 Globulin 4.0 Albumin/Globulin Ratio 1.3 Lipase 20 Ethyl Alcohol < 10.0 - Rads (name of study) head CT Relevant Findings:: Final report received, See rad report (neg) PD Medical Decision Making - ED course Complexity details: reviewed results, re-evaluated patient, considered differential, d/w patient ED course: The patient was worked up with CT of the head, labs, and EKG. He was given a liter of normal saline as well as Toradol and Tylenol for symptomatic relief. His head CT was negative for acute findings. He had a more or less normal EKG and liver enzymes were improved from previous levels. The patient's alcohol level was undetectable. I did affirm the patient's decision to take better care of himself, as he looks much, much healthier than he has in previous times. The patient is stable for discharge home. I have not found an emergent condition today. We have discussed the usual indications for return. Departure - Departure Disposition: 01 Home, Self Care Clinical Impression: Closed head injury Qualifiers: Encounter type: initial encounter Qualified Code(s): S09.90XA - Unspecified injury of head, initial encounter Episode of syncope Qualifiers: Syncope type: unspecified Qualified Code(s): R55 - Syncope and collapse Condition: Stable Instructions: ED Head Injury Closed, ED Fainting Unkn Cause Comments: Your liver labs look a lot better than they have previously when you have been here, but are still somewhat abnormal. The rest of your labs were unremarkable. Your EKG looks good and your head CT is negative for any injury to your brain. You most likely have a concussion from hitting your head on the ground and this may cause you to have headaches, dizziness, nausea and increased drowsiness over the next week or two. Generally, this will go away on its own, given time. Please be sure you drink lots of water and get plenty of rest. There is no need to have somebody wake you up throughout the night, as this is old wisdom and does not contribute anything to the outcome of head injury. Please follow- up with your doctor as planned. Forms: PCP List Discharge Date/Time: 08/26/23 22:13
[2023-08-26] MEDS: ACETAMINOPHEN 325 MG TABLET PO STA (20:57)
[2023-08-26] MEDS: KETOROLAC 30 MG/ML VIAL IVP STA (20:57)
[2023-08-26] MEDS: SODIUM CHLORIDE 0.9% 1,000 ML IV STA (20:57)
[2023-08-26 21:01] LABS: BASOPHILS % (AUTO) 0.3 %; EOSINOPHILS % (AUTO) 0.1 %; HCT - HEMATOCRIT 40.5 % (42.0-52.0); HGB - HEMOGLOBIN 13.6 g/dL (14.0-18.0); LYMPHOCYTES # (AUTO) 1.5 10^3/uL (1.5-3.5); LYMPHOCYTES % (AUTO) 13.6 %; MEAN CORPUSCULAR HEMOGLOBIN 29.7 pg (27.0-31.0); MEAN CORPUSCULAR HGB CONC 33.6 g/dL (32.0-36.0); MEAN CORPUSCULAR VOLUME 88.4 fL (80.0-94.0); MEAN PLATELET VOLUME 11.7 fL (7.4-11.4); MONOCYTES # (AUTO) 0.9 10^3/uL (0.0-1.0); MONOCYTES % (AUTO) 8.5 %; NEUTROPHILS # (AUTO) 8.6 10^3/uL (1.5-6.6); NEUTROPHILS % (AUTO) 77.2 %; PLT - PLATELET COUNT 106 10^3/uL (130-450); RED BLOOD COUNT 4.58 10^6/uL (4.70-6.10); RED CELL DISTRIBUTION WIDTH 15.2 % (12.0-15.0); WHITE BLOOD COUNT 11.1 x10^3/uL (4.8-10.8)
[2023-08-26 21:14] LABS: ETOH - ETHANOL < 10.0 mg/dL; LIPASE 20 U/L (11-82)
[2023-08-26 21:15] LABS: ALBUMIN/GLOBULIN RATIO 1.3 (1.0-2.2); ALKALINE PHOSPHATASE 224 IU/L (42-121); ALT ALANINE AMINOTRANSFERASE 55 IU/L (10-60); AST ASPARTATE AMINOTRANSFERASE 72 IU/L (10-42); BILIRUBIN,TOTAL 2.4 mg/dL (0.2-1.0); BUN - BLOOD UREA NITROGEN 14 mg/dL (6-20); CALCIUM 10.5 mg/dL (8.5-10.3); CARBON DIOXIDE - CO2 25 mmol/L (21-32); CHLORIDE 93 mmol/L (101-111); CREATININE 0.7 mg/dL (0.6-1.3); GFR - MDRD 131 (>89); GLUCOSE 90 mg/dL (74-104); POTASSIUM 3.2 mmol/L (3.5-4.5); SODIUM 132 mmol/L (135-145)
--- NOTE | 2023-08-26 21:48 | CT Report ---
PROCEDURE: Head WO INDICATIONS: fall/head injury/syncope TECHNIQUE: Noncontrast 4.5 mm thick angled axial sections acquired from the foramen magnum to the vertex. For r adiation dose reduction, the following was used: automated exposure control, adjustment of mA and/or kV according to patient size. COMPARISON: None. FINDINGS: Image quality: Excellent. CSF spaces: Basal cisterns are patent. No extra-axial fluid collections. Ventricles are normal in size and shape. Brain: No midline shift. No intracranial masses or hemorrhage. [place]-white matter interface is norm al. Skull and face: Calvarium and visualized facial bones are intact, without suspicious lesions. Ecommerce Merchandising Manager ior scalp hematoma. Sinuses: Mucosal thickening in the left sphenoid sinus. Paranasal sinuses are otherwise clear. Mastoi ds are clear. IMPRESSION: No acute intracranial pathology. Posterior scalp hematoma. Reviewed by: Flex Araujo MD on 08/26/2023 9:47 PM PDT Approved by: Flex Araujo MD on 08/26/2023 9:47 PM PDT Station ID: [id number]
== END 2023-08-26 22:13 | disposition home or self-care (01) ==
LOC: ED 20:05
DX: R55 Syncope and collapse (principal); S09.90XA Unspecified injury of head, initial encounter; S00.03XA Contusion of scalp, initial encounter; W18.39XA Other fall on same level, initial encounter; Y92.008 Other place in unspecified non-institutional (private) residence as the place of occurrence of the external cause; F17.200 Nicotine dependence, unspecified, uncomplicated
CPT/HCPCS: 36415; 70450; 80053; 82077; 83690; 85025; 93005; 96374; 99283; 99284; A9270

== ENCOUNTER 2023-09-20 09:32 | Outpatient (CLI) | payer MEDICAID | END 2023-09-20 23:59 | disposition critical access hospital (66) | LOC: EMS 09:32 | PROVIDERS: ATTEND Emergency Medicine | DX: T50.912A Poisoning by multiple unspecified drugs, medicaments and biological substances, intentional self-harm, initial encounter (principal); F10.10 Alcohol abuse, uncomplicated | CPT/HCPCS: A0425; A0427; A0999 ==

== ENCOUNTER 2023-09-20 09:57 | Emergency (ER) | payer MEDICAID ==
[2023-09-20 10:17] LABS: BASOPHILS # (AUTO) 0.1 10^3/uL (0.0-0.1); EOSINOPHILS # (AUTO) 0.1 10^3/uL (0.0-0.7); EOSINOPHILS % (AUTO) 0.7 %; HCT - HEMATOCRIT 39.9 % (42.0-52.0); HGB - HEMOGLOBIN 13.3 g/dL (14.0-18.0); LYMPHOCYTES # (AUTO) 4.2 10^3/uL (1.5-3.5); LYMPHOCYTES % (AUTO) 51.5 %; MEAN CORPUSCULAR HEMOGLOBIN 29.8 pg (27.0-31.0); MEAN CORPUSCULAR HGB CONC 33.3 g/dL (32.0-36.0); MEAN CORPUSCULAR VOLUME 89.5 fL (80.0-94.0); MEAN PLATELET VOLUME 9.6 fL (7.4-11.4); MONOCYTES # (AUTO) 0.6 10^3/uL (0.0-1.0); NEUTROPHILS # (AUTO) 3.3 10^3/uL (1.5-6.6); NEUTROPHILS % (AUTO) 39.6 %; PLT - PLATELET COUNT 124 10^3/uL (130-450); RED BLOOD COUNT 4.46 10^6/uL (4.70-6.10); RED CELL DISTRIBUTION WIDTH 15.1 % (12.0-15.0); WHITE BLOOD COUNT 8.2 x10^3/uL (4.8-10.8)
[2023-09-20 10:32] LABS: ACETAMINOPHEN 0.1 ug/mL; ALBUMIN 4.5 g/dL (3.2-5.5); ALBUMIN/GLOBULIN RATIO 1.5 (1.0-2.2); ALKALINE PHOSPHATASE 214 IU/L (42-121); ALT ALANINE AMINOTRANSFERASE 34 IU/L (10-60); AST ASPARTATE AMINOTRANSFERASE 60 IU/L (10-42); BILIRUBIN,TOTAL 0.7 mg/dL (0.2-1.0); BUN - BLOOD UREA NITROGEN 6 mg/dL (6-20); CARBON DIOXIDE - CO2 26 mmol/L (21-32); CHLORIDE 106 mmol/L (101-111); CREATININE 0.5 mg/dL (0.6-1.3); ETOH - ETHANOL 440.7 mg/dL; GFR - MDRD 193 (>89); GLUCOSE 93 mg/dL (74-104); LIPASE 44 U/L (11-82); POTASSIUM 3.5 mmol/L (3.5-4.5); SODIUM 143 mmol/L (135-145); TOTAL PROTEIN 7.5 g/dL (6.4-8.9)
[2023-09-20 10:41] LABS: SALICYLATE < 1.5 mg/dL
[2023-09-20 11:01] LABS: BILIRUBIN,URINE NEGATIVE (NEGATIVE); GLUCOSE, URINE (UA) NEGATIVE (NEGATIVE); KETONES,URINE (UA) NEGATIVE (NEGATIVE); LEUKOCYTE ESTERASE, URINE NEGATIVE (NEGATIVE); NITRITE,URINE NEGATIVE (NEGATIVE); OCCULT BLOOD,URINE NEGATIVE (NEGATIVE); PH,URINE 6.5 PH (5.0-7.5); PROTEIN,URINE NEGATIVE (NEGATIVE); UROBILINOGEN,URINE 0.2 (NORMAL) E.U./dL (NORMAL)
[2023-09-20 11:04] LABS: CLARITY,URINE CLEAR (CLEAR)
[2023-09-20 11:18] LABS: AMPHETAMINE SCREEN,URINE NEGATIVE (NEGATIVE); BARBITURATE SCREEN,UR NEGATIVE (NEGATIVE); BENZODIAZEPINES SCREEN, URINE NEGATIVE (NEGATIVE); BUPRENORPHINE SCREEN, URINE NEGATIVE (NEGATIVE); COCAINE SCREEN URINE NEGATIVE (NEGATIVE); METHADONE SCREEN, URINE NEGATIVE (NEGATIVE); METHAMPHETAMINES SCREEN, URINE NEGATIVE (NEGATIVE); OPIATE SCREEN, URINE NEGATIVE (NEGATIVE); OXYCODONE SCREEN, URINE NEGATIVE (NEGATIVE); THC CANNABINOID SCREEN, URINE NEGATIVE (NEGATIVE); TRICYCLIC ANTIDEPRESSANT,URINE NEGATIVE (NEGATIVE)
[2023-09-20] MEDS: NALOXONE 2 MG in SODIUM CHLORIDE 0.9% 495 ML IV STA (12:08)
[2023-09-20] MEDS: MULTIVITAMIN 10 ML, THIAMINE INJ 100 MG, FOLIC ACID INJ 1 MG in SODIUM CHLORIDE 0.9% 1,... IV SCH (12:15)
--- NOTE | 2023-09-20 12:51 | ED Physician Documentation ---
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 He has been treated for severe depression and suicidal ideation. He is presenting to the emergency department today with acute suicidal ideation and alcohol intoxication. The patient indicates he took an overdose of a prescription medication along with alcohol. He is brought in by ambulance with a vacillating mental status some of which appears fabricated. He did get a dose of Narcan en-route which did not appear to make a difference in his level of consciousness. He has refused to identify the medication he took. He is prescribed trazodone, clonidine, gabapentin and BuSpar. Review of Systems Unable to obtain: Uncooperative PD PAST MEDICAL HISTORY - Past Medical History Cardiovascular: None Respiratory: None Neuro: None Endocrine/Autoimmune: None GI: GERD, Esophageal varices, GI bleed, Pancreatitis, Cirrhosis : None HEENT: None Psych: Depression Musculoskeletal: None Derm: None - Past Surgical History Past Surgical History: No General: EGD - Present Medications Home Medications: Ambulatory Orders Medication Instructions Recorded Confirmed Omeprazole 40 mg PO DAILY #30 cap 05/17/23 09/20/23 Gabapentin [Neurontin] 300 mg PO TID 06/20/23 09/20/23 cloNIDine [Catapres] 0.2 mg PO DAILY 06/20/23 09/20/23 traZODone [Desyrel] 1 - 2 tab PO HS 06/20/23 09/20/23 - Allergies Allergies/Adverse Reactions: Allergies Allergy/AdvReac Type Severity Reaction Status Date / Time No Known Drug Allergies Allergy Verified 09/20/23 10:11 - Social History Does the pt smoke?: Yes Smoking Status: Current every day smoker Does the pt drink ETOH?: Yes Does the pt have substance abuse?: Yes - Immunizations Immunizations are current?: Yes - POLST Patient has POLST: No PD ED PE NORMAL - Vitals Vital signs reviewed: Yes (hypertensive) - General General: Alert and oriented X 3, No acute distress, Well developed/nourished - HEENT HEENT: Atraumatic, PERRL, EOMI - Neck Neck: Supple, no meningeal sign, No bony TTP - Cardiac Cardiac: RRR, No murmur - Respiratory Respiratory: No respiratory distress, Clear bilaterally - Abdomen Abdomen: Normal bowel sounds, Soft, Non tender, Non distended, No organomegaly - Back Back: No CVA TTP, No spinal TTP - Derm Derm: Normal color, Warm and dry, No rash - Extremities Extremities: No deformity, No edema - Neuro Neuro: Alert and oriented X 3, mail distribution scheme examiner 2-12 intact, No motor deficit, No sensory deficit, Normal speech Eye Opening: Spontaneous Motor: Obeys Commands Verbal: Oriented GCS Score: 15 - Psych Psych: Other (mood is evasive and the affect is blunted. ) Results - Vitals Vitals: Vital Signs - 24 hr 09/20/23 09/20/23 09/20/23 10:04 11:23 11:25 Temperature 36.2 C L Heart Rate 93 85 Respiratory 18 0 L 11 L Rate Blood Pressure 128/92 H 132/95 H O2 Saturation 95 52 L 100 If not protocol 10 : Oxygen Flow, liters/minute 09/20/23 12:00 Temperature Heart Rate 118 H Respiratory 20 Rate Blood Pressure 116/78 O2 Saturation 96 If not protocol : Oxygen Flow, liters/minute Oxygen O2 Source Room air - Labs Labs: Laboratory Tests 09/20/23 09/20/23 09/20/23 10:10 10:10 10:44 WBC 8.2 RBC 4.46 L Hgb 13.3 L Hct 39.9 L MCV 89.5 MCH 29.8 MCHC 33.3 RDW 15.1 H Plt Count 124 L MPV 9.6 Neut # (Auto) 3.3 Lymph # (Auto) 4.2 H [place] # (Auto) 0.6 Eos # (Auto) 0.1 Baso # (Auto) 0.1 Absolute Nucleated RBC 0.00 Nucleated RBC % 0.0 Sodium 143 Potassium 3.5 Chloride 106 Carbon Dioxide 26 Anion Gap 11.0 BUN 6 Creatinine 0.5 L Estimated GFR (MDRD) 193 Glucose 93 Calcium 9.0 Total Bilirubin 0.7 AST 60 H ALT 34 Alkaline Phosphatase 214 H Total Protein 7.5 Albumin 4.5 Globulin 3.0 Albumin/Globulin Ratio 1.5 Lipase 44 Urine Color YELLOW Urine Clarity CLEAR Urine pH 6.5 Ur Specific [place] <=1.005 Urine Protein NEGATIVE Urine Glucose (UA) NEGATIVE Urine Ketones NEGATIVE Urine Occult Blood NEGATIVE Urine Nitrite NEGATIVE Urine Bilirubin NEGATIVE Urine Urobilinogen 0.2 (NORMAL) Ur Leukocyte Esterase NEGATIVE Ur Microscopic Review NOT INDICATED Urine Culture Comments NOT INDICATED Salicylates < 1.5 Urine Opiates Screen NEGATIVE Ur Buprenorphine Scrn NEGATIVE Ur Oxycodone Screen NEGATIVE Urine Methadone Screen NEGATIVE Acetaminophen 0.1 Ur Barbiturates Screen NEGATIVE Ur Tricyclics Screen NEGATIVE Ur Phencyclidine Scrn NEGATIVE Ur Amphetamine Screen NEGATIVE U Methamphetamines Scrn NEGATIVE U Benzodiazepines Scrn NEGATIVE Urine Cocaine Screen NEGATIVE U Cannabinoids Screen NEGATIVE Ur Drug Screen Comment CUTOFF CONC BELOW: Ethyl Alcohol 440.7 PD Medical Decision Making - ED course Complexity details: reviewed old records, reviewed results, re-evaluated patient, considered differential, d/w patient Reviewed Lab Results: We reviewed a complete blood cell count revealing a normal white blood cell count mildly depressed hemoglobin and hematocrit similar to previous and platelets low at 124,000 chemistries showed normal electrolytes normal BUN and creatinine normal liver functions with exception of AST mildly elevated at 60 alkaline phosphatase elevated to 14. Urinalysis showed a clean negative urine. Toxicology was negative on urine and blood alcohol was 440.7.These laboratory tests are concerning for acute alcohol intoxication and mild liver function abnormality. The patient does not currently have ascites. ED course: 31-year-old male presents to the emergency department intoxicated on alcohol and indicating he has taken an overdose of medication. He currently denies suicidal ideation. The patient presented with an overdose and intoxication and his level of intoxication is too high for evaluation currently. He does have ALY paperwork and he will be kept in the emergency department until his blood alcohol is in the legal range for evaluation. We have drawn a second blood alcohol with anticipation of figuring the rate of metabolism and giving it a rough idea of the time set for evaluation. In the meantime the patient is given a dose of Zyprexa for comfort. Departure - Departure Forms: PCP List
[2023-09-20] MEDS: NICOTINE 21 MG PATCH TOP STA (15:56)
[2023-09-20] MEDS: OLANZapine ODT 5 MG TABLET TL ONE (18:30)
[2023-09-20] MEDS: CALCIUM CARBONATE CHEW 500 MG TABLET PO STA (23:25)
[2023-09-21] MEDS ORDERED: ONDANSETRON ODT 4 MG TABLET TL STA (00:27)
--- NOTE | 2023-09-21 00:32 | ED Physician Documentation ---
ED Addendum - Addendum Addendum: 09/21/23 00:30 Patient's last EtOH level is 82 And he was evaluated by the DCR. At this time the DCR does not feel he needs to be detained. Patient states that he had been doing well recently but he had received some bad news about some jobs which caused him to drink today. He states that when he does not drink he does not feel this way and he is motivated to continue to avoid alcohol as he is sees that big difference in his body and his health without alcohol. He does not feel suicidal. He is motivated for outpatient resources. DCR is planning to connect him with outpatient navigator and I will also given resources for [facility] which he has asked for. Departure - Departure Disposition: 01 Home, Self Care Clinical Impression: Alcoholic intoxication Condition: Stable Instructions: ED Alcohol Intoxication, ED Depression Comments: Follow-up with [facility] at [phone] to schedule psychiatric care and counseling. Help is available Speak with someone today [address] Suicide and Crisis Lifeline Hours: Available 24 hours. [facility] [address] [place] [address] Main [facility] offers a monitored and safe setting for individuals withdrawing from alcohol and drugs, and counseling for individuals experiencing a mental health crisis. All services are provided in a 10-bed facility where intensive medical monitoring is required along with stabilization services. The goal of these services is to assess a clients mental health and substance use disorder related needs, and assist them in accessing the services they need to recover. Return to the ER or call 911 with any concerns such as thoughts of hurting yourself. Forms: PCP List
[2023-09-21] MEDS: ONDANSETRON 4 MG/2 ML VIAL IVP STA (00:39)
[2023-09-21 01:19] VITALS: BP 130/76; O2SAT 96
== END 2023-09-21 01:17 | disposition home or self-care (01) ==
LOC: EDUNIT# → ED 09:57
DX: F10.129 Alcohol abuse with intoxication, unspecified (principal); Y90.8 Blood alcohol level of 240 mg/100 ml or more; F17.200 Nicotine dependence, unspecified, uncomplicated
CPT/HCPCS: 36415; 80053; 80143; 80179; 80306; 81003; 82077; 83690; 85025; 96365; 96375; 99284; A9270; J3411; 81001; 87086

== ENCOUNTER 2023-12-06 08:00 | Outpatient (CLI) | payer MEDICAID ==
--- NOTE | 2023-12-07 21:48 | XRAY Report ---
PROCEDURE: Hand 3+V RT INDICATIONS: RIGHT HAND PAIN TECHNIQUE: 4 views of the hand(s) acquired. COMPARISON: None. FINDINGS: Bones: No fractures or dislocations. No suspicious bony lesions. Soft tissues: No suspicious soft tissue calcifications or masses. IMPRESSION: No acute bony abnormality. Reviewed by: Flex Araujo MD on 12/07/2023 9:46 PM PDT Approved by: Flex Araujo MD on 12/07/2023 9:46 PM PDT Station ID: [id number]
--- NOTE | 2023-12-07 21:57 | XRAY Report ---
PROCEDURE: Ribs w/PA Chest 4+V BL INDICATIONS: RIB PAIN TECHNIQUE: 2 views of the ribs were acquired, along with a single view chest. 7 images. COMPARISON: CXR 01/12/2023. FINDINGS: Surgical changes and devices: None. Bones and chest wall: Left fifth and sixth rib fractures with minimal displacement. No dislocations. No suspicious bony lesions. Overlying soft tissues appear unremarkable. Lungs and pleura: No pleural effusions or pneumothorax. Lungs appear clear. Mediastinum: Mediastinal contours appear normal. Heart size is normal. IMPRESSION: Left fifth and sixth rib fractures are seen. Reviewed by: Flex Araujo MD on 12/07/2023 9:56 PM PDT Approved by: Flex Araujo MD on 12/07/2023 9:56 PM PDT Station ID: [id number]
== END 2023-12-06 23:59 | disposition home or self-care (01) ==
LOC: DI.S 08:00
PROVIDERS: ATTEND Registered Nurse
DX: S22.42XA Multiple fractures of ribs, left side, initial encounter for closed fracture (principal); M25.541 Pain in joints of right hand

== ENCOUNTER 2023-12-18 15:02 | Outpatient (CLI) | payer MEDICAID ==
--- NOTE | 2023-12-19 15:54 | Ultrasound Report ---
PROCEDURE: Soft Tissue Head or Neck INDICATIONS: MASS OF NECK TECHNIQUE: Real-time scanning was performed of the right submandibular and posterior auricular regions, with loretta ge documentation. COMPARISON: None FINDINGS: Focus of decreased echogenicity the right submandibular gland measuring 1.5 x 0.6 x 1.8 cm. Similar f ocus in the posterior auricular region is present measuring 1.0 x 0.3 x 0.6 cm. IMPRESSION: Nonspecific foci as described above. These are nonspecific. This could represent a small lymph node. However, they are nonspecific on the basis of this exam. If concern persists, CT with co ntrast is recommended. Reviewed by: Luda Raymond MD on 12/19/2023 3:53 PM PDT Approved by: Luda Raymond MD on 12/19/2023 3:53 PM PDT Station ID: [id number]
== END 2023-12-18 15:03 | disposition home or self-care (01) ==
LOC: DI 15:02
PROVIDERS: ATTEND Nurse Practitioner Acute Care
DX: R22.1 Localized swelling, mass and lump, neck (principal)

== ENCOUNTER 2023-12-31 15:25 | Outpatient (CLI) | payer MEDICAID ==
--- NOTE | 2023-12-31 20:21 | MRI Report ---
PROCEDURE: Hand RT WO INDICATIONS: R HAND INJURY TECHNIQUE: Noncontrast coronal T1 spin echo and T2 fast spin echo with fat saturation, axial proton density fast spin echo and T2 fast spin echo with fat saturation, sagittal T1 spin echo and STIR through the hand and fingers. COMPARISON: Right hand x-ray 12/06/2023 FINDINGS: Image quality: Fair; please note that the large field of view limits fine detailed evaluation of the hand ligaments and tendons Bones: Intense marrow edema is present within the 4th metacarpal, predominantly at the neck, with a c orresponding transversely oriented T1 hypointense fracture line (3/6; 43-9). There is mild palmar an gulation of the distal fracture fragment without extension to the intra-articular surface (10/06). Interphalangeal joint(s): The proper collateral ligaments appear intact. The volar plate demonstrat es normal morphology. The extensor central slips appear intact on sagittal images. Metacarpophalangeal joint(s): The proper collateral ligaments appear intact, as well as the volar pl ate and adjacent deep transverse metacarpal ligaments. The sagittal bands of the extensor brantley appea r normal. Extensor apparatus: The central slips insert normally on the middle phalangeal base. Flexor apparatus: The flexor digitorum superficialis and profundus tendons both appear intact. Soft tissues: Reactive subcutaneous edema is present adjacent to the 4th metacarpal shaft and head. IMPRESSION: Reason, mildly displaced, extra-articular fracture of the 4th metacarpal neck with palmar angulation, reactive marrow edema, and adjacent subcutaneous edema. Reviewed by: Zhou Garcia MD on 12/31/2023 8:19 PM PDT Approved by: Zhou Garcia MD on 12/31/2023 8:19 PM PDT Station ID: [id number]
== END 2023-12-31 15:26 | disposition home or self-care (01) ==
LOC: DI 15:25
PROVIDERS: ATTEND Orthopaedic Surgery
DX: S62.334A Displaced fracture of neck of fourth metacarpal bone, right hand, initial encounter for closed fracture (principal)

== ENCOUNTER 2024-01-07 23:43 | Emergency (ER) | payer MEDICAID ==
[2024-01-07 23:51] VITALS: O2SAT 98
[2024-01-08 00:15] LABS: BASOPHILS % (AUTO) 0.4 %; EOSINOPHILS % (AUTO) 0.2 %; HCT - HEMATOCRIT 39.8 % (42.0-52.0); HGB - HEMOGLOBIN 13.8 g/dL (14.0-18.0); LYMPHOCYTES # (AUTO) 1.8 10^3/uL (1.5-3.5); LYMPHOCYTES % (AUTO) 18.6 %; MEAN CORPUSCULAR HEMOGLOBIN 30.3 pg (27.0-31.0); MEAN CORPUSCULAR HGB CONC 34.7 g/dL (32.0-36.0); MEAN CORPUSCULAR VOLUME 87.5 fL (80.0-94.0); MEAN PLATELET VOLUME 9.7 fL (7.4-11.4); MONOCYTES # (AUTO) 0.8 10^3/uL (0.0-1.0); MONOCYTES % (AUTO) 8.3 %; NEUTROPHILS # (AUTO) 7.1 10^3/uL (1.5-6.6); NEUTROPHILS % (AUTO) 72.4 %; PLT - PLATELET COUNT 75 10^3/uL (130-450); RED BLOOD COUNT 4.55 10^6/uL (4.70-6.10); RED CELL DISTRIBUTION WIDTH 19.3 % (12.0-15.0); WHITE BLOOD COUNT 9.8 x10^3/uL (4.8-10.8)
[2024-01-08] MEDS: IBUPROFEN 400 MG TABLET PO STA (00:21)
--- NOTE | 2024-01-08 00:33 | ED Physician Documentation ---
History of Present Illness - Stated complaint Stated Complaint: ETOH - Chief complaint Chief Complaint: Neuro - History obtained from History obtained from: Patient - Additonal information Additional information: 33-year-old male with history of cirrhosis due to alcoholism and esophageal varices presents with episode of hemoptysis tonight. He states that his girlfriend made him come in. Also with spotted rash to bilateral hands, soles of the feet, and to mouth since yesterday. Patient states he has had sore throat and viral URI symptoms since yesterday. PD PAST MEDICAL HISTORY - Past Medical History Past Medical History: Yes Cardiovascular: None Respiratory: None Neuro: None Endocrine/Autoimmune: None GI: GERD, Esophageal varices, GI bleed, Pancreatitis, Cirrhosis : None HEENT: None Psych: Depression Musculoskeletal: None Derm: None - Past Surgical History Past Surgical History: No General: EGD - Present Medications Home Medications: Ambulatory Orders Medication Instructions Recorded Confirmed Omeprazole 40 mg PO DAILY #30 cap 05/17/23 09/20/23 Gabapentin [Neurontin] 300 mg PO TID 06/20/23 09/20/23 cloNIDine [Catapres] 0.2 mg PO DAILY 06/20/23 09/20/23 traZODone [Desyrel] 1 - 2 tab PO HS 06/20/23 09/20/23 - Allergies Allergies/Adverse Reactions: Allergies Allergy/AdvReac Type Severity Reaction Status Date / Time No Known Drug Allergies Allergy Verified 01/07/24 23:46 - Social History Does the pt smoke?: Yes Smoking Status: Current every day smoker Does the pt drink ETOH?: Yes Does the pt have substance abuse?: Yes - Immunizations Immunizations are current?: Yes - POLST Patient has POLST: No PD ED PE NORMAL - Vitals Vital signs reviewed: Yes - General General: Alert and oriented X 3, No acute distress, Well developed/nourished - HEENT HEENT: Atraumatic, PERRL, EOMI, Moist mucous membranes, Other (erythema and spotted lesions to oral mucosa) - Neck Neck: Supple, no meningeal sign - Cardiac Cardiac: RRR - Respiratory Respiratory: No respiratory distress, Clear bilaterally - Abdomen Abdomen: Non tender, Non distended - Derm Derm: Normal color, Warm and dry, Other (Spotted lesions to hands feet and mouth) - Neuro Neuro: Alert and oriented X 3 Results - Vitals Vitals: Vital Signs - 24 hr 01/07/24 23:46 Temperature 36.4 C L Heart Rate 82 Respiratory 16 Rate Blood Pressure 124/68 O2 Saturation 98 Oxygen O2 Source Room air - Labs Labs: Laboratory Tests 01/08/24 00:06 WBC 9.8 RBC 4.55 L Hgb 13.8 L Hct 39.8 L MCV 87.5 MCH 30.3 MCHC 34.7 RDW 19.3 H Plt Count 75 L MPV 9.7 Neut # (Auto) 7.1 H Lymph # (Auto) 1.8 [place] # (Auto) 0.8 Eos # (Auto) 0.0 Baso # (Auto) 0.0 Absolute Nucleated RBC 0.00 Nucleated RBC % 0.0 PD Medical Decision Making - ED course ED course: 33-year-old man with history of alcoholic cirrhosis and esophageal varices presents with hemoptysis and viral URI symptoms for the past day along with lesions to the hands feet and mouth consistent with uuie-bkfu-wew-mouth disease. Symptomatic care discussed. He does have normal hemoglobin. Alcohol cessation counseling provided. Return precautions given. Plan to follow-up outpatient with primary care provider. Departure - Departure Clinical Impression: Alcoholic cirrhosis, Hand, foot and mouth disease Condition: Stable Instructions: ED Viral Syndrome, Cirrhosis Liver Dc Comments: You were seen in the emergency department for Alcoholic cirrhosis and for viral upper respiratory infection, likely pigu-iwiu-zuq-mouth disease. Please follow-up with your primary care provider and return to the emergency department if you have any new or worsening symptoms or other concerns. Forms: PCP List
[2024-01-08 00:35] LABS: BILIRUBIN,URINE SMALL (NEGATIVE); GLUCOSE, URINE (UA) NEGATIVE (NEGATIVE); KETONES,URINE (UA) TRACE mg/dL (NEGATIVE); LEUKOCYTE ESTERASE, URINE NEGATIVE (NEGATIVE); NITRITE,URINE NEGATIVE (NEGATIVE); OCCULT BLOOD,URINE NEGATIVE (NEGATIVE); PROTEIN,URINE 30 mg/dL (NEGATIVE); UROBILINOGEN,URINE >=8.0 E.U./dL (NORMAL)
[2024-01-08 00:38] LABS: CLARITY,URINE HAZY (CLEAR)
[2024-01-08 00:48] LABS: AMORPHOUS SEDIMENT,UR Moderate /LPF; BACTERIA,URINE Rare /HPF (None Seen); MUCUS,URINE Moderate Strands; RBC,URINE None Seen /HPF (0-5); SQUAMOUS EPITHELIAL CELL,UR FEW Squamous (<= Few)
[2024-01-08 00:58] LABS: ALBUMIN 4.6 g/dL (3.2-5.5); ALBUMIN/GLOBULIN RATIO 1.4 (1.0-2.2); BILIRUBIN,TOTAL 2.3 mg/dL (0.2-1.0); CALCIUM 9.4 mg/dL (8.5-10.3); CREATININE 0.6 mg/dL (0.6-1.3); POTASSIUM 3.2 mmol/L (3.5-4.5); TOTAL PROTEIN 7.9 g/dL (6.4-8.9)
[2024-01-08 01:13] VITALS: BP 112/67
== END 2024-01-08 01:11 | disposition home or self-care (01) ==
LOC: EDUNIT# → ED 23:43
DX: B08.4 Enteroviral vesicular stomatitis with exanthem (principal); K70.30 Alcoholic cirrhosis of liver without ascites; F17.200 Nicotine dependence, unspecified, uncomplicated
CPT/HCPCS: 36415; 80053; 81001; 83690; 85025; 99283; A9270; 81003; 87086